=== PATIENT | male | born 1980 | race Caucasian/White ===

== ENCOUNTER 2020-01-17 23:48 | Emergency (ER) | payer BC, SELFPAY ==
[2020-01-18 00:01] VITALS: BP 144/94; PULSE 98; RESP 18; TEMP 36.6; O2SAT 100
== END 2020-01-18 00:10 | disposition left against medical advice (07) ==
LOC: ANHED 05-26 10:53
DX: F10.920 Alcohol use, unspecified with intoxication, uncomplicated (principal)
CPT/HCPCS: 99199

== ENCOUNTER 2020-01-25 19:10 | Emergency (ER) | payer BC, SELFPAY ==
--- NOTE | 2020-01-25 19:12 | ED.ALCOHOL ---
HPI - Alcohol General Chief Complaint: Alcohol Stated Complaint: ETOH History of Present Illness HPI narrative: Patient presents via EMS for alcohol intoxication. His mother had called for them to come get him. He has no complaints. He said he is not working currently because he had right knee surgery. He said he drinks a lot of vodka. He denies smoking cigarettes or smoking marijuana. He has not been sick recently. He has some abrasions on his arms and legs on he does not give a history of that. complaint: alcohol intoxication Last drink: just [employer] Chronic alcohol use: Yes Related Data Home Medications Medication Instructions Recorded Confirmed alprazolam 01/25/20 dextroamphetamine-amphetamine 01/25/20 naproxen 01/25/20 01/25/20 Allergies Allergy/AdvReac Type Severity Reaction Status Date / Time codeine Allergy Unknown Unknown Verified 01/25/20 19:17 Penicillins Allergy Unknown Unknown Verified 01/25/20 19:17 Review of Systems Review of Systems: Narrative: . He says no to everything that I asked but because of his intoxication I am not sure that is accurate. All systems reviewed & are unremarkable except as noted in HPI and below PMFSH Past Medical History Medical History Alcoholic Surgical History Surgical History (Updated 01/25/20 @ 19:14 by Stella Green MD) History of knee surgery Social History Social History (Updated 01/25/20 @ 19:14 by Stella Green MD) Smoking status: Never smoker Alcohol intake: current Substance use: never Gender identity (if verbalized by the patient): Male Exam Narrative: Exam Narrative: GENERAL: Well-appearing, well-nourished, and in no acute distress. Slow speech, polite, abrasions on the arms and legs. HEAD: Normocephalic, atraumatic. EYES: PERRLA and EOMI. ENT: Nares clear, no rhinorrhea or epistaxis. Mucous membranes moist. NECK: Supple. CHEST: Clear to auscultation. No respiratory distress. HEART: Regular rate and rhythm. No murmur heard. Normal peripheral pulses. ABDOMEN: Soft, nontender, nondistended, normal active bowel sounds. EXTREMITIES: Normal range of motion. No edema. SKIN: Warm, dry, no rash. NEURO: No focal deficits. Alert and oriented x3. PSYCH: Slow speech. Course Reevaluation(s) Reevaluation #1: Patient is yelling and cursing, saying that he wants to leave. I ordered Haldol and told him I would give him something to relax him. Date: 01/25/20 Time: 20:53 Reevaluation #2: Patient is yelling, ate some of his food but threw the water, pulled out his IV, does not understand why he is here. Security is present. Staff feels threatened. We will give another Haldol this time with the Ativan IM. Date: 01/25/20 Time: 21:52 Consultations Consultation #1: Patient called his mother and she is coming from [place] to pick him up he is now polite and cooperative. Date: 01/26/20 Time: 06:25 Vital Signs Vital signs: Vital Signs Temperature 98.4 F 01/25/20 19:13 Pulse Rate 88 01/25/20 19:13 Respiratory Rate 14 01/25/20 19:13 Blood Pressure 141/109 H 01/25/20 19:13 Pulse Oximetry 98 01/25/20 19:13 Temperature 98.4 F 01/25/20 19:13 Pulse Rate 81 01/26/20 06:14 Respiratory Rate 19 01/26/20 06:14 Blood Pressure 129/89 01/26/20 06:14 Pulse Oximetry 100 01/26/20 06:14 MDM - Alcohol Differential Diagnosis Differential diagnosis: Likely alcohol intoxication Medical Records Attestation: I reviewed the patient's medical records. Lab Data Attestation: I reviewed the patient's lab results. Result diagrams: 01/25/20 19:22 01/25/20 19:22 Labs: Lab Results 01/25/20 01/25/20 01/25/20 Range/Units 19:22 19:22 19:22 WBC 8.4 (4.5-10.0) K/mm3 RBC 4.88 (4.6-6.20) M/mm3 Hgb 15.1 (14.0-18.0) g/dL Hct 44.8 (42.0-52.0) % MCV 91.8 (80-100) fl MCH 30.9 (26-34) pg MCHC 33.7 (32-36) g/dl RD
[2020-01-25 19:13] VITALS: BP 141/109; PULSE 88; RESP 14; TEMP 36.9; O2SAT 98
[2020-01-25 19:29] LABS: Basophils Absolute Auto 0.1 K/mm3 (0.0-0.1); Basophils Percent Auto 0.7 % (0.2-1.2); Eosinophils Absolute Auto 0.2 K/mm3 (0-0.3); Eosinophils Percent Auto 1.8 % (0-4.4); Hematocrit 44.8 % (42.0-52.0); Hemoglobin 15.1 g/dL (14.0-18.0); Immature Granulocyte Absolute 0.01 K/mm3 (0.00-0.031); Immature Granulocyte Percent A 0.1 % (0-0.5); Lymphocytes Absolute Auto 2.16 K/mm3 (0.9-3.2); Lymphocytes Percent Auto 25.7 % (18.3-44.2); Mean Corpuscular HGB Conc 33.7 g/dl (32-36); Mean Corpuscular Hemoglobin 30.9 pg (26-34); Mean Corpuscular Volume 91.8 fl (80-100); Monocytes Absolute Auto 0.6 K/mm3 (0.1-0.6); Monocytes Percent Auto 7.1 % (2.6-8.5); Neutrophils Absolute Auto 5.4 K/mm3 (1.3-6.7); Neutrophils Percent Auto 64.6 % (45.5-73.1); Platelet Count Result 275 k/mm3 (150-375); Red Blood Count 4.88 M/mm3 (4.6-6.20); Red Cell Distribution Width 11.9 % (11.5-14.5); White Blood Count 8.4 K/mm3 (4.5-10.0)
[2020-01-25 19:40] LABS: Alanine Aminotransferase 49 U/L (4-50); Albumin Level 3.9 g/dL (3.5-5.1); Alkaline Phosphatase 100 U/L (38-126); Aspartate Amino Transferase 56 U/L (17-59); Bilirubin,Total 0.2 mg/dL (0.2-1.3); Blood Urea Nitrogen 13 mg/dL (9-20); Calcium 8.1 mg/dL (8.4-10.2); Carbon Dioxide 32 mmol/L (22-30); Chloride 104 mmol/L (98-107); Estimated CRCL calculation 97 ml/min; Estimated Glomerular Filt Rate > 60; Glucose 94 mg/dL (75-110); Potassium 3.9 mmol/L (3.4-5.0); Sodium 144 mmol/L (137-145)
[2020-01-25 19:56] LABS: Ethanol 308 mg/dL (<10)
[2020-01-25] MEDS: HALOPERIDOL LACTATE 5 MG/ML VIAL IM ×2 (20:32→22:08)
--- NOTE | 2020-01-25 20:52 | PC.NURSE ---
Attempted to call pt mother at this time with no success.
--- NOTE | 2020-01-25 20:58 | PC.NURSE ---
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 Pt ripping off tele leads and attempting to self remove IV. Staff and security at bedside attempting to calm patient. EDP made aware of behavior.
[2020-01-25 21:38] VITALS: BP 132/74; PULSE 88; RESP 16; O2SAT 98
--- NOTE | 2020-01-25 22:08 | PC.NURSE ---
pt pulled put iv, threatening towards staff, saying he would, smack the glasses of this software writer gabbie to give haldol 5 mg and ativan 2mg im from dr celeste given in right thigh
[2020-01-26] VITALS: BP 125/88; PULSE 90; RESP 18; O2SAT 100
[2020-01-26 01:53] VITALS: BP 126/75; PULSE 70; RESP 18; O2SAT 98
[2020-01-26 04:56] VITALS: BP 130/97; PULSE 85; RESP 19; O2SAT 100
--- NOTE | 2020-01-26 04:57 | PC.NURSE ---
pt awake at this time. a&ox3 with no complaints. edp notified.
[2020-01-26 06:14] VITALS: BP 129/89; PULSE 81; RESP 19; O2SAT 100
--- NOTE | 2020-01-26 06:43 | PC.NURSE ---
pt called mother for a ride home.
[2020-01-26 06:59] VITALS: BP 135/79; PULSE 88; RESP 19; TEMP 36.8; O2SAT 100
== END 2020-01-26 07:18 | disposition home or self-care (01) ==
PROVIDERS: Emergency Provider Emergency Medicine
DX: F10.229 Alcohol dependence with intoxication, unspecified (principal); Y90.8 Blood alcohol level of 240 mg/100 ml or more; R45.6 Violent behavior
CPT/HCPCS: 36415; 80053; 80307; 85025; 96372; 96374; 99284; J1630; J2060; J3411; J3475; J7121

== ENCOUNTER 2020-01-28 16:33 | Emergency (ER) | payer BC, SELFPAY ==
[2020-01-28 16:46] VITALS: BP 147/111; PULSE 125; RESP 20; TEMP 37.1; O2SAT 97
[2020-01-28 17:31] VITALS: BP 148/107; PULSE 111; RESP 15; TEMP 36.7; O2SAT 96
[2020-01-28 18:11] LABS: Add Urine Microscopic? NO; Appearance Urine Clear (Clear); Bilirubin Urine Negative (Negative); Blood Urine Negative (Negative); Color Urine Straw (Yellow); Glucose Urine UA Negative (Negative); Ketones Urine Negative (Negative); Leukocyte Esterase Ur Negative LEU/UL (Negative); Nitrate Urine Negative (Negative); Protein Urine Negative (Negative); Urobilinogen Urine Negative mg/dL (<2.0)
[2020-01-28 18:12] LABS: Basophils Absolute Auto 0.1 K/mm3 (0.0-0.1); Basophils Percent Auto 0.9 % (0.2-1.2); Eosinophils Absolute Auto 0.1 K/mm3 (0-0.3); Eosinophils Percent Auto 1.2 % (0-4.4); Hematocrit 45.1 % (42.0-52.0); Hemoglobin 15.9 g/dL (14.0-18.0); Immature Granulocyte Absolute 0.02 K/mm3 (0.00-0.031); Immature Granulocyte Percent A 0.2 % (0-0.5); Lymphocytes Percent Auto 26.5 % (18.3-44.2); Mean Corpuscular HGB Conc 35.3 g/dl (32-36); Mean Corpuscular Hemoglobin 31.5 pg (26-34); Mean Corpuscular Volume 89.5 fl (80-100); Mean Platelet Volume 10.7 fl (7.4-10.4); Monocytes Absolute Auto 0.6 K/mm3 (0.1-0.6); Monocytes Percent Auto 6.3 % (2.6-8.5); Neutrophils Absolute Auto 5.6 K/mm3 (1.3-6.7); Neutrophils Percent Auto 64.9 % (45.5-73.1); Platelet Count Result 311 k/mm3 (150-375); Red Blood Count 5.04 M/mm3 (4.6-6.20); Red Cell Distribution Width 11.9 % (11.5-14.5); White Blood Count 8.7 K/mm3 (4.5-10.0)
[2020-01-28 18:26] LABS: Amphetamine Screen Urine Negative (Negative); Barbiturate Screen Urine Negative (Negative); Benzodiazepines Screen Urine Positive (Negative); Cannabinoid Screen Urine Negative (Negative); Cocaine Screen Urine Negative (Negative); Methadone Screen Urine Negative (Negative); Opiate Screen Urine Negative (Negative); Phencyclidine Screen Urine Negative (Negative)
[2020-01-28 18:27] LABS: Ethanol 273 mg/dL (<10)
[2020-01-28 18:28] LABS: Alanine Aminotransferase 64 U/L (4-50); Albumin Level 4.2 g/dL (3.5-5.1); Alkaline Phosphatase 110 U/L (38-126); Aspartate Amino Transferase 94 U/L (17-59); Bilirubin,Total 0.3 mg/dL (0.2-1.3); Blood Urea Nitrogen 16 mg/dL (9-20); Calcium 8.7 mg/dL (8.4-10.2); Carbon Dioxide 28 mmol/L (22-30); Chloride 102 mmol/L (98-107); Estimated CRCL calculation 86 ml/min; Estimated Glomerular Filt Rate > 60; Glucose 124 mg/dL (75-110); Potassium 4.1 mmol/L (3.4-5.0); Sodium 141 mmol/L (137-145)
--- NOTE | 2020-01-28 18:38 | ED.ALCOHOL ---
HPI - Alcohol General Chief Complaint: Alcohol Stated Complaint: etoh detox Time Seen by Provider: 01/28/20 17:56 Source: patient Mode of arrival: ambulatory Limitations: intoxication History of Present Illness HPI narrative: This is a 39-year-old male that presents the emergency department for alcohol detox. Reports he usually drinks 1/5 of vodka a day. Reports his last drink was this afternoon. He would like to stop drinking. Currently does not have any complaints. Denies chest pain, shortness of breath, abdominal pain, or vomiting. Related Data Home Medications Medication Instructions Recorded Confirmed alprazolam 01/25/20 dextroamphetamine-amphetamine 01/25/20 naproxen 01/25/20 01/25/20 Allergies Allergy/AdvReac Type Severity Reaction Status Date / Time codeine Allergy Unknown Unknown Verified 01/28/20 17:36 Penicillins Allergy Unknown Unknown Verified 01/28/20 17:36 Review of Systems Review of Systems: Narrative: CONSTITUTIONAL: Denies fever CARDIOVASCULAR: Denies chest pain RESPIRATORY: Denies dyspnea. GASTROINTESTINAL: Denies abdominal pain, nausea, vomiting All systems reviewed & are unremarkable except as noted in HPI and below PMFSH Surgical History Surgical History (Updated 01/25/20 @ 19:14 by Stella Green MD) History of knee surgery Social History Social History (Updated 01/25/20 @ 19:14 by Stella Green MD) Smoking status: Never smoker Alcohol intake: current Substance use: never Gender identity (if verbalized by the patient): Male Exam Narrative: Exam Narrative: GENERAL: Intoxicated, well-nourished, and in no acute distress. HEAD: Normocephalic, atraumatic. EYES: PERRLA and EOMI. ENT: Nares clear, no rhinorrhea or epistaxis. Mucous membranes moist. Oropharynx without tonsillar hypertrophy exudate or other lesions. Bilateral TMs pearly garduno non-bulging NECK: Supple. No adenopathy or masses. CHEST: Clear to auscultation. No respiratory distress. No wheezes rales or rhonchi HEART: Regular rate and rhythm. No murmur heard. Normal peripheral pulses. ABDOMEN: Soft, nontender, nondistended, normal active bowel sounds. EXTREMITIES: Normal range of motion. No edema. SKIN: Warm, dry, no rash. NEURO: No focal deficits. Alert and oriented x3. PSYCH: Normal mood and affect Course Vital Signs Vital signs: Vital Signs Temperature 98.7 F 01/28/20 16:46 Pulse Rate 125 H 01/28/20 16:46 Respiratory Rate 20 01/28/20 16:46 Blood Pressure 147/111 H 01/28/20 16:46 Pulse Oximetry 97 01/28/20 16:46 Temperature 98.1 F 01/28/20 17:31 Pulse Rate 88 01/28/20 21:40 Respiratory Rate 15 01/28/20 21:40 Blood Pressure 167/113 H 01/28/20 21:40 Pulse Oximetry 100 01/28/20 21:40 MDM - Alcohol MDM Narrative Medical decision making narrative: Patient presents to the emergency department as he would like to stop drinking. Patient currently does not have any complaints. Blood pressure has been intermittently elevated. Tachycardic upon arrival which improved after IV fluids. Otherwise vitals are normal. CBC without acute findings. Metabolic panel with mild transaminitis. Alcohol level is 273. UA without acute abnormalities. Urine drug screen positive for benzodiazepines. Spoke with patient and his mother in length. Will be discharged with a prescription for Librium. Patient reports he plans to seek treatment. Patient given resources to do so Lab Data Attestation: I reviewed the patient's lab results. Result diagrams: 01/28/20 17:45 01/28/20 17:45 Labs: Lab Results 01/28/20 01/28/20 01/28/20 Range/Units 17:45 17:45 17:45 WBC 8.7 (4.5-10.0) K/mm3 RBC 5.04 (4.6-6.20) M/mm3 Hgb 15.9 (14.0-18.0) g/dL Hct 45.1 (42.0-52.0) % MCV 89.5 (80-100) fl MCH 31.5 (26-34) pg MCHC 35.3 (32-36) g/dl RDW 11.9 (11.5-14.5) % Plt Count 311 (150-375) k/mm3 MPV 10.7 H (7.4-10.4) fl Immature Gran % (
[2020-01-28 19:49] VITALS: BP 146/70; PULSE 95; RESP 12; O2SAT 96
[2020-01-28 21:40] VITALS: BP 167/113; PULSE 88; RESP 15; O2SAT 100
[2020-01-28] MEDS: chlordiazePOXIDE 25 MG CAPSULE PO (21:40)
[2020-01-28 22:06] VITALS: BP 161/115; PULSE 89; RESP 10; TEMP 37.1; O2SAT 97
== END 2020-01-28 22:09 | disposition home or self-care (01) ==
PROVIDERS: Emergency Medicine; Emergency Provider Emergency Medicine
DX: F10.20 Alcohol dependence, uncomplicated (principal); Y90.0 Blood alcohol level of less than 20 mg/100 ml
CPT/HCPCS: 36415; 80053; 80307; 81003; 85025; 96365; 96366; 99284; A9270; J3411; J3475; J7030

== ENCOUNTER 2020-03-25 21:03 | Emergency (ER) | payer BC, SELFPAY ==
[2020-03-25 21:06] VITALS: BP 125/72; PULSE 101; RESP 16; TEMP 36.8; O2SAT 100
--- NOTE | 2020-03-25 22:27 | ED.WOUNDLAC ---
HPI - Wound/Laceration General Chief Complaint: Wound/Laceration Stated Complaint: l hand injury Time Seen by Provider: 03/25/20 21:44 Source: RN notes reviewed History of Present Illness HPI narrative: Patient presents emergency department from home for left second digit finger laceration. Patient states prior to arrival he had been putting up some Halloween lights when he tripped and try to catch himself and had struck a staple with his left pointer finger. A chunk of skin been removed at that time. He notes mild venous bleeding he denies any other injury states his last tetanus shot was 5 years ago denies any numbness or tingling Related Data Home Medications Medication Instructions Recorded Confirmed alprazolam 01/25/20 dextroamphetamine-amphetamine 01/25/20 naproxen 01/25/20 01/25/20 Allergies Allergy/AdvReac Type Severity Reaction Status Date / Time codeine Allergy Unknown Unknown Verified 03/25/20 21:41 Penicillins Allergy Unknown Anaphylaxis Verified 03/25/20 21:41 Review of Systems Review of Systems: Narrative: Gen.: Denies fevers or chills Musculoskeletal: Denies joint pain Neuro: Denies numbness, tingling, weakness Skin: See HPI Endo: Denies DM PMFSH Past Medical History Medical History Alcoholic Surgical History Surgical History (Updated 01/25/20 @ 19:14 by Stella Green MD) History of knee surgery Social History Social History Smoking status: Never smoker Alcohol intake: current Substance use: never Gender identity (if verbalized by the patient): Male Exam Narrative: Exam Narrative: APPEARANCE: No acute distress, nontoxic, resting in bed Eyes: EOMI HEENT: Normocephalic, atraumatic, RESPIRATORY: No respiratory distress MUSCULOSKELETAl: Full flexion-extension of the left second PIP DIP and MCP joints, capillary refill less than 3 seconds neurovascular intact NEURO: Awake and alert. Following commands, speech normal, no focal deficits SKIN:: Warm, dry. Left distal lateral second digit has a 1 cm laceration distal to the DIP joint but proximal to the nail it is linear and deep with a chunk of skin that has been taken out mild venous bleeding no foreign body no tendon involvement Course Course Emergency Course: Discussed with patient results of workup and diagnosis. Discussed need for follow-up with primary care, proper use of medication, and reasons to return to the emergency department. Patient understands and agrees to current treatment plan Vital Signs Vital signs: Vital Signs Temperature 98.3 F 03/25/20 21:06 Pulse Rate 101 H 03/25/20 21:06 Respiratory Rate 16 03/25/20 21:06 Blood Pressure 125/72 03/25/20 21:06 Pulse Oximetry 100 03/25/20 21:06 Temperature 98.3 F 03/25/20 21:06 Pulse Rate 101 H 03/25/20 21:06 Respiratory Rate 16 03/25/20 21:06 Blood Pressure 125/72 03/25/20 21:06 Pulse Oximetry 100 03/25/20 21:06 Procedures Laceration Laceration 1: ====== Skin Level ====== ====== Subcutaneous Layer ====== ====== Muscle Layer ====== ====== Tendon Layer ====== Dressing: Verbal consent was obtained prior to the procedure. The wound was cleaned with Betadine and irrigated with copious amounts of normal saline. Lidocaine 1% was used for digital block wound was explored is no foreign body seen. The wound closure was difficult as there is a large chunk of skin that have been removed and approximated as best as possible. the wound was then closed with 3 4-0 nylon in simple interrupted fashion. A sterile dressing was applied following the procedure. Patient tolerated the procedure well Discharge Plan Discharge Clinical Impression: Laceration of left index finger Patient Disposition: Home, Self-Care Condition: Stable Instructions: Antibiotic Form, Finger Laceration (ED) Additional I
[2020-03-25 23:03] VITALS: BP 139/90; PULSE 56; RESP 16; TEMP 36.8; O2SAT 95
== END 2020-03-25 23:04 | disposition home or self-care (01) ==
PROVIDERS: Emergency Provider Emergency Medicine
DX: S61.211A Laceration without foreign body of left index finger without damage to nail, initial encounter (principal); W01.118A Fall on same level from slipping, tripping and stumbling with subsequent striking against other sharp object, initial encounter
CPT/HCPCS: 12001; 99282

== ENCOUNTER 2020-03-28 20:55 | Emergency (ER) | payer BC, SELFPAY ==
[2020-03-28 20:58] VITALS: BP 165/102; PULSE 110; RESP 20; TEMP 36.7; O2SAT 99
[2020-03-28 21:20] VITALS: BP 153/108; PULSE 106; PULSE 109; RESP 15; O2SAT 98
--- NOTE | 2020-03-28 21:56 | ED.GENADULT ---
HPI - General Adult General Chief complaint: Unspecified Stated complaint: needs stitches removed Time Seen by Provider: 03/28/20 21:22 History of Present Illness HPI narrative: He reports that he drinks 1-2 pints of liquor every day, but he plans to stop and he would like help. He has tired to quit in the past, but he gets too sick. He reports his last drink was a few hours ago and he is already getting shakey. He does not have a PCP. Additionally he was seen here 4 days ago and had stitches put in left index finger and he thought it was time to get them taken out. He tried to follow-up with the asigned physician and was told that they were not seeing new patient's. Related Data Home Medications Medication Instructions Recorded Confirmed alprazolam 01/25/20 dextroamphetamine-amphetamine 01/25/20 naproxen 01/25/20 01/25/20 Allergies Allergy/AdvReac Type Severity Reaction Status Date / Time Penicillins Allergy Severe Anaphylaxis Verified 03/28/20 21:14 codeine Allergy Intermediate Swelling Verified 03/28/20 21:14 Review of Systems Review of Systems: All systems reviewed & are unremarkable except as noted in HPI and below Constitutional: Constitutional: Denies fever(s) Cardiovascular: Cardiovascular: Denies chest pain Respiratory: Respiratory: Denies dyspnea Gastrointestinal: Gastrointestinal: Denies abdominal pain, Denies nausea and Denies vomiting Musculoskeletal: Musculoskeletal: Denies back pain Neurologic: Denies dizziness, Denies syncope and Denies headache(s) PMFSH Past Medical History Medical History Alcoholic Surgical History Surgical History History of knee surgery Social History Social History Smoking status: Never smoker Alcohol intake: current Substance use: never Gender identity (if verbalized by the patient): Male Exam Const: General: healthy appearing, no acute distress and alert Nutritional Appearance: well nourished Orientation/consciousness: patient oriented x3 HENMT: Head: normal to inspection Resp: Effort & Inspection: normal respiratory effort Auscultation: clear to auscultation bilaterally Cardio: Rate: tachycardic Rhythm: regular rhythm GI: GI Palp: Yes Soft to palpation and No Tenderness to palpation present (GI) Skin: General skin exam: normal color Neuro: General: patient oriented x3, moves all extremities, no focal motor deficits and CN's II-XI intact bilaterally Speech: normal speech Other: Resting tremor Psych: Affect: Anxious affect present Course Vital Signs Vital signs: Vital Signs Temperature 36.7 C 03/28/20 20:58 Pulse Rate 110 H 03/28/20 20:58 Respiratory Rate 20 03/28/20 20:58 Blood Pressure 165/102 H 03/28/20 20:58 Pulse Oximetry 99 03/28/20 20:58 Temperature 36.7 C 03/28/20 20:58 Pulse Rate 97 03/28/20 23:55 Respiratory Rate 16 03/28/20 23:55 Blood Pressure 153/108 H 03/28/20 23:55 Pulse Oximetry 100 03/28/20 23:55 Medical Decision Making MDM Narrative Medical decision making narrative: He is having mild alcohol withdrawal at this time. He should be a good candidate for outpatient treatment if he is able to arrange follow-up in a timely manor. I will plan to start him on librium. Tremors and tachycardia resolved after librium. I contacted Dr. Thomas and he will see the patient in follow-up Medical Records Medical records reviewed: Yes I reviewed the patient's medical records. Vital Signs Vital Signs: Vital Signs Temperature 36.7 C 03/28/20 20:58 Pulse Rate 110 H 03/28/20 20:58 Respiratory Rate 20 03/28/20 20:58 Blood Pressure 165/102 H 03/28/20 20:58 Pulse Oximetry 99 03/28/20 20:58 Temperature 36.7 C 03/28/20 20:58 Pulse Rate 97 03/28/20 23:55 Respiratory Rate 16 03/28/20 23:55 Blood Pr
[2020-03-28 22:15] VITALS: BP 143/108; PULSE 102; RESP 16; O2SAT 98
[2020-03-28] MEDS: chlordiazePOXIDE 25 MG CAPSULE PO (22:18)
[2020-03-28 23:00] VITALS: BP 143/90; PULSE 98; RESP 18; O2SAT 98
[2020-03-28] MEDS: chlordiazePOXIDE 10 MG CAPSULE PO (23:20)
[2020-03-28 23:55] VITALS: BP 153/108; PULSE 97; RESP 16; O2SAT 100
== END 2020-03-28 23:55 | disposition home or self-care (01) ==
PROVIDERS: Emergency Provider Emergency Medicine
DX: F10.239 Alcohol dependence with withdrawal, unspecified (principal)
CPT/HCPCS: 99283; A9270

== ENCOUNTER 2020-06-19 03:36 | Emergency (ER) | payer BC, MEDICAID, SELFPAY ==
[2020-06-19] VITALS (11 sets, daily range): BP systolic 119–161; BP diastolic 76–109; PULSE 71–96; RESP 7–18; TEMP 36.4–36.8; O2SAT 94–98
--- NOTE | 2020-06-19 03:50 | ED.OVERDOSE ---
HPI - Overdose General Chief Complaint: Overdose Stated Complaint: od History of Present Illness HPI Narrative: 40 yo male w/ h/o alcohol and drug abuse brought in to the ED by EMS for suspected overdose. He was found unresponsive with labored respirations. He was given a total of 8 mg of narcan combined intranasal and IV. He required bag assisted ventlation. He became more awake,but still confused. History limited by mental status. Related Data Home Medications Medication Instructions Recorded Confirmed alprazolam 01/25/20 dextroamphetamine-amphetamine 01/25/20 naproxen 01/25/20 01/25/20 Allergies Allergy/AdvReac Type Severity Reaction Status Date / Time Penicillins Allergy Severe Anaphylaxis Verified 03/28/20 21:14 codeine Allergy Intermediate Swelling Verified 03/28/20 21:14 Review of Systems Review of Systems: ROS unobtainable: Yes unobtainable due to mental status PMFSH Past Medical History Medical History Alcoholic Polysubstance abuse Surgical History Surgical History History of knee surgery Social History Social History Smoking status: Never smoker Alcohol intake: current Substance use: never Gender identity (if verbalized by the patient): Male Exam Const: Nutritional Appearance: well nourished Other: Somnolent. Slurred speech HENMT: Head: normal to inspection Eyes: Pupils: Equal, round and reactive pupils present Resp: Effort & Inspection: normal respiratory effort Auscultation: clear to auscultation bilaterally Cardio: Rate: regular rate Rhythm: regular rhythm GI: GI Palp: Yes Soft to palpation and No Tenderness to palpation present (GI) Skin: General skin exam: normal color Neuro: General: moves all extremities and no focal motor deficits Other: Oriented x2, slurred speech Extrem: General: normal to inspection Psych: Thought content: No Suicidality present Course Vital Signs Vital signs: Vital Signs Temperature 36.4 C L 06/19/20 03:36 Pulse Rate 96 06/19/20 03:36 Respiratory Rate 18 06/19/20 03:36 Blood Pressure 161/109 H 06/19/20 03:36 Pulse Oximetry 97 06/19/20 03:36 Temperature 36.8 C 06/19/20 06:00 Pulse Rate 84 06/19/20 06:00 Respiratory Rate 16 06/19/20 06:00 Blood Pressure 138/89 06/19/20 06:00 Pulse Oximetry 97 06/19/20 06:00 MDM - Overdose MDM Narrative Medical decision making narrative: Admits to using meth and xanax. No intentional self harm. Still drowsy, but protecting airway and breathing on his own. Medical Records Attestation: I reviewed the patient's medical records. Lab Data Attestation: I reviewed the patient's lab results. Result diagrams: 06/19/20 04:03 06/19/20 04:03 Labs: Lab Results 06/19/20 06/19/20 06/19/20 Range/Units 04:03 04:03 04:03 WBC 5.7 (4.5-10.0) K/mm3 RBC 3.78 L (4.6-6.20) M/mm3 Hgb 11.7 L D (14.0-18.0) g/dL Hct 34.7 L (42.0-52.0) % MCV 91.8 (80-100) fl MCH 31.0 (26-34) pg MCHC 33.7 (32-36) g/dl RDW 11.9 (11.5-14.5) % Plt Count 172 (150-375) k/mm3 MPV 9.3 (7.4-10.4) fl Immature Gran % (Auto) 0.4 (0-0.5) % Neut % (Auto) 53.5 (45.5-73.1) % Lymph % (Auto) 36.3 (18.3-44.2) % [place] % (Auto) 6.3 (2.6-8.5) % Eos % (Auto) 2.6 (0-4.4) % Baso % (Auto) 0.9 (0.2-1.2) % Lymph # (Auto) 2.07 (0.9-3.2) K/mm3 [place] # (Auto) 0.4 (0.1-0.6) K/mm3 Eos # (Auto) 0.2 (0-0.3) K/mm3 Baso # (Auto) 0.1 (0.0-0.1) K/mm3 Abs Immat Gran (auto) 0.02 (0.00-0.031) K/mm3 Absolute Neuts (auto) 3.1 (1.3-6.7) K/mm3 Absolute Nucleated RBC 0.0 (0.0-0.012) K/mm3 Nucleated RBC % 0.0 (0.0-0.2) % Sodium 135 L (137-145) mmol/L Potassium 3.8 (3.4-5.0) mmol/L Chloride 98 (98-107) mmol/
--- NOTE | 2020-06-19 03:56 | ECG_ITS ---
Measurements Intervals [place] Rate: 97 P: 28 [place]: 159 QRS: 43 QRSD: 105 T: 51 QT: 360 QTc: 459 Interpretive Statements SINUS RHYTHM INCOMPLETE RIGHT BUNDLE BRANCH BLOCK BASELINE ARTIFACT- I, II, III BORDERLINE ECG Electronically Signed On 06-19-2020 6:54:19 [place] by Demarcus Rea D.O.
[2020-06-19 04:26] LABS: Basophils Absolute Auto 0.1 K/mm3 (0.0-0.1); Basophils Percent Auto 0.9 % (0.2-1.2); Eosinophils Absolute Auto 0.2 K/mm3 (0-0.3); Eosinophils Percent Auto 2.6 % (0-4.4); Hematocrit 34.7 % (42.0-52.0); Hemoglobin 11.7 g/dL (14.0-18.0); Immature Granulocyte Absolute 0.02 K/mm3 (0.00-0.031); Immature Granulocyte Percent A 0.4 % (0-0.5); Lymphocytes Absolute Auto 2.07 K/mm3 (0.9-3.2); Lymphocytes Percent Auto 36.3 % (18.3-44.2); Mean Corpuscular HGB Conc 33.7 g/dl (32-36); Mean Corpuscular Volume 91.8 fl (80-100); Mean Platelet Volume 9.3 fl (7.4-10.4); Monocytes Absolute Auto 0.4 K/mm3 (0.1-0.6); Monocytes Percent Auto 6.3 % (2.6-8.5); Neutrophils Absolute Auto 3.1 K/mm3 (1.3-6.7); Neutrophils Percent Auto 53.5 % (45.5-73.1); Platelet Count Result 172 k/mm3 (150-375); Red Blood Count 3.78 M/mm3 (4.6-6.20); Red Cell Distribution Width 11.9 % (11.5-14.5); White Blood Count 5.7 K/mm3 (4.5-10.0)
[2020-06-19 04:40] LABS: Acetaminophen < 10 ug/mL (10-30); Ethanol < 10 mg/dL (<10); Salicylate < 1.0 mg/dL (2-20)
[2020-06-19 05:04] LABS: Alanine Aminotransferase 26 U/L (4-50); Alkaline Phosphatase 67 U/L (38-126); Anion Gap 9 mmol/L (8-16); Aspartate Amino Transferase 37 U/L (17-59); Bilirubin,Total 0.8 mg/dL (0.2-1.3); Blood Urea Nitrogen 20 mg/dL (9-20); Calcium 8.5 mg/dL (8.4-10.2); Carbon Dioxide 28 mmol/L (22-30); Chloride 98 mmol/L (98-107); Estimated CRCL calculation 75 ml/min; Estimated Glomerular Filt Rate > 60; Glucose 259 mg/dL (75-110); Potassium 3.8 mmol/L (3.4-5.0); Sodium 135 mmol/L (137-145)
== END 2020-06-19 06:02 | disposition home or self-care (01) ==
PROVIDERS: Emergency Provider Emergency Medicine
DX: T50.901A Poisoning by unspecified drugs, medicaments and biological substances, accidental (unintentional), initial encounter (principal)
CPT/HCPCS: 36415; 80053; 80307; 84443; 85025; 93005; 99283

== ENCOUNTER 2020-08-07 20:25 | Emergency (ER) | payer BC, MEDICAID, SELFPAY ==
[2020-08-07 20:52] VITALS: BP 141/89; PULSE 91; RESP 18; TEMP 36.7; O2SAT 99
[2020-08-07 23:00] VITALS: BP 133/88; PULSE 89; RESP 17; O2SAT 97
--- NOTE | 2020-08-07 23:00 | PC.NURSE ---
Assumed care of pt. Report from Nicky RN
[2020-08-08 00:16] VITALS: BP 133/87; PULSE 99; RESP 20; O2SAT 96
--- NOTE | 2020-08-08 01:06 | ED.GENADULT ---
HPI - General Adult General Chief complaint: Wound/Laceration Stated complaint: abcess right side Time Seen by Provider: 08/08/20 00:00 History of Present Illness HPI narrative: Patient is a 40-year-old male who presents ER with abscess to the right axilla. Reports its been developing over the last week. Drainage noted from 2 areas. No fevers or chills or sweats. Mild redness over the lower area of the armpit. Has not had issues like this previously. Related Data Home Medications Medication Instructions Recorded Confirmed alprazolam 01/25/20 dextroamphetamine-amphetamine 01/25/20 naproxen 01/25/20 01/25/20 Allergies Allergy/AdvReac Type Severity Reaction Status Date / Time Penicillins Allergy Severe Anaphylaxis Verified 08/07/20 20:26 codeine Allergy Intermediate Swelling Verified 08/07/20 20:26 Review of Systems Constitutional: Constitutional: Denies chills, Denies fever(s) and Denies weakness Gastrointestinal: Gastrointestinal: Denies nausea and Denies vomiting Integumentary/Breasts: Skin/Breast: Reports erythema Comments: right axillary abscess with drainage/tenderness PMFSH Past Medical History Medical History (Updated 08/08/20 @ 01:10 by Iván Holley MD) Alcoholic Polysubstance abuse Surgical History Surgical History (Updated 08/08/20 @ 01:07 by Ivná Holley MD) H/O fasciotomy Left forearm History of knee surgery Social History Social History (Updated 08/08/20 @ 01:07 by Iván Holley MD) Social History: History of IV drug abuse but now clean. Smoking status: Never smoker Alcohol intake: current Substance use: never Gender identity (if verbalized by the patient): Male Exam Narrative: Exam Narrative: GENERAL: Well-appearing, well-nourished, and in no acute distress. HEAD: Normocephalic, atraumatic. CHEST: Clear to auscultation. No respiratory distress. HEART: Regular rate and rhythm. Normal peripheral pulses. EXTREMITIES: Normal range of motion. No edema. SKIN: Warm, dry, no rash. Large abscess right axilla inferior aspect. 2 additional areas of drainage superior to this. Larger abscess with erythema moving towards the back. NEURO: Alert and oriented x3. PSYCH: Normal mood and affect. Course Course Emergency Course: Wound drained and packed. Patient can take [place] despite his history of IV drug abuse and is girlfriend will controlled medication. Bactrim for antibiotic coverage. Return precautions discussed. Vital Signs Vital signs: Vital Signs Temperature 98.0 F 08/07/20 20:52 Pulse Rate 91 08/07/20 20:52 Respiratory Rate 18 08/07/20 20:52 Blood Pressure 141/89 H 08/07/20 20:52 Pulse Oximetry 99 08/07/20 20:52 Temperature 98.0 F 08/07/20 20:52 Pulse Rate 99 08/08/20 00:16 Respiratory Rate 20 08/08/20 00:16 Blood Pressure 133/87 08/08/20 00:16 Pulse Oximetry 96 08/08/20 00:16 Procedures Abscess I/D upper extremity: Date of Incision: 08/08/20 Time of Incision: 12:45 Side (if applicable): right Local Anesthetic: lidocaine 1% and with epi Amount of anesthesia used (mL): 8 Technique: incised with #11 blade Irrigation: No Packing used?: iodoform I&D Results: Pus Complications: pain Medical Decision Making Vital Signs Vital Signs: Vital Signs Temperature 98.0 F 08/07/20 20:52 Pulse Rate 91 08/07/20 20:52 Respiratory Rate 18 08/07/20 20:52 Blood Pressure 141/89 H 08/07/20 20:52 Pulse Oximetry 99 08/07/20 20:52 Temperature 98.0 F 08/07/20 20:52 Pulse Rate 99 08/08/20 00:16 Respiratory Rate 20 08/08/20 00:16 Blood Pressure 133/87 08/08/20 00:16 Pulse Oximetry 96 08/08/20 00:16 Discharge Plan Discharge Clinical Impression: Abscess Patient Disposition: Home, Self-Care Condition: Stable Instructions: Antibiotic Form, Abscess (ED) Additional Instructions: Take the full course of you
[2020-08-08] MEDS: HYDROcodone/acetaminophen (*CRX) 5-325 MG TABLET 1 TAB PO (01:23)
== END 2020-08-08 01:20 | disposition home or self-care (01) ==
PROVIDERS: Emergency Provider Emergency Medicine
DX: L02.411 Cutaneous abscess of right axilla (principal)
CPT/HCPCS: 10061; 99283; A9270

== ENCOUNTER 2020-09-22 05:56 | Emergency (ER) | payer OTHER, SELFPAY ==
[2020-09-22] VITALS (49 sets, daily range): BP systolic 128–155; BP diastolic 46–111; PULSE 69–107; RESP 10–27; TEMP 36.8; O2SAT 97–100
--- NOTE | ~2020-09-22 | XR_ITS ---
EXAMINATION: XR chest 1V portable INDICATION: Transient alteration of awareness TECHNIQUE: Portable AP chest at 0615 hours COMPARISON: 01/24/2016 FINDINGS: The lungs are free of acute opacities. There is no pleural effusion or pneumothorax. The ca rdiomediastinal silhouette is normal. A tubular foreign body projects over the right upper chest. IMPRESSION: 1. No acute cardiopulmonary abnormality. Reviewed, dictated and finalized at location A. CIATE DOCTOR
--- NOTE | ~2020-09-22 | CT_ITS ---
EXAMINATION: CT brain wo con INDICATION: Altered mental status COMPARISON: 01/22/2016 TECHNIQUE: Standard unenhanced head CT. The dose-length product (DLP) was 681.00 mGy-cm. The mA was a djusted according to patient size. Iterative reconstruction technique was employed. FINDINGS: There is no intracranial hemorrhage, acute infarction, or abnormal mass lesion. The ventric les are normal. There is no abnormal mass effect or midline shift. The garduno-white matter differentiat ion is normal. The basal cisterns are patent. The orbits are normal. There is mild mucosal thickening of the paranasal sinuses. IMPRESSION: 1. No acute intracranial abnormality. Reviewed, dictated and finalized at location A. HT COMMUNICATIONS OFFICER
--- NOTE | 2020-09-22 06:02 | ECG_ITS ---
Measurements Intervals [place] Rate: 102 P: 14 [place]: 157 QRS: 20 QRSD: 104 T: 51 QT: 347 QTc: 454 Interpretive Statements SINUS TACHYCARDIA INCOMPLETE RIGHT BUNDLE BRANCH BLOCK BASELINE ARTIFACT- II, III, AVF BORDERLINE ECG Electronically Signed On 09-22-2020 7:15:13 [place] by Demarcus Rea D.O.
--- NOTE | 2020-09-22 06:04 | ED.OVERDOSE ---
HPI - Overdose General Chief Complaint: Overdose <Ben Velásquez MD - Last Filed: 09/22/20 06:08> Stated Complaint: OD <Ben Velásquez MD - Last Filed: 09/22/20 06:08> Time Seen by Provider: 09/22/20 06:02 <Ben Velásquez MD - Last Filed: 09/22/20 06:08> History of Present Illness HPI Narrative: Found unresponsive by his mother with fentanyl and a pipe near by. EMS found him with minimal respiratory effort. He got 10 mg of narcan. He required assisted ventilation for fifteen minutes. He then started vomiting. On arrival here he is awake, but still nonverbal. History limited by mental status. <Ben Velásquez MD - Last Filed: 09/22/20 06:08> Related Data Home Medications: Home Medications Medication Instructions Recorded Confirmed alprazolam 01/25/20 dextroamphetamine-amphetamine 01/25/20 naproxen 01/25/20 01/25/20 <Ben Velásquez MD - Last Filed: 09/22/20 06:08> Allergies/Adverse Reactions: Allergies Allergy/AdvReac Type Severity Reaction Status Date / Time Penicillins Allergy Severe Anaphylaxis Verified 08/07/20 20:26 codeine Allergy Intermediate Swelling Verified 08/07/20 20:26 <Ben Velásquez MD - Last Filed: 09/22/20 06:08> Review of Systems Review of Systems: ROS unobtainable: Yes unobtainable due to mental status <Ben Velásquez MD - Last Filed: 09/22/20 06:08> [facility] Past Medical History Medical History: Medical History (Updated 09/22/20 @ 12:05 by Maranda Marin MD) Alcoholic Polysubstance abuse <Ben Velásquez MD - Last Filed: 09/22/20 06:08> Surgical History Surgical History: Surgical History (Updated 08/08/20 @ 01:07 by Iván Holley MD) H/O fasciotomy Left forearm History of knee surgery <Ben Velásquez MD - Last Filed: 09/22/20 06:08> Social History Social History: Social History (Updated 08/08/20 @ 01:07 by Iávn Holley MD) Social History: History of IV drug abuse but now clean. Smoking status: Never smoker Alcohol intake: current Substance use: never Gender identity (if verbalized by the patient): Male <Ben Velásquez MD - Last Filed: 09/22/20 06:08> Exam Const: General: confusion <Ben eVlásquez MD - Last Filed: 09/22/20 06:08> Nutritional Appearance: well nourished <Ben Velásquez MD - Last Filed: 09/22/20 06:08> HENMT: Head: normal to inspection <Ben Velásquez MD - Last Filed: 09/22/20 06:08> Other: top front teeth missing <Ben Velásquez MD - Last Filed: 09/22/20 06:08> Eyes: Pupils: Equal, round and reactive pupils present <Ben Velásquez MD - Last Filed: 09/22/20 06:08> Neck: Neck: normal visual inspection <Ben Velásquez MD - Last Filed: 09/22/20 06:08> Resp: Effort & Inspection: tachypneic <Ben Velásquez MD - Last Filed: 09/22/20 06:08> Auscultation: clear to auscultation bilaterally <Ben Velásquez MD - Last Filed: 09/22/20 06:08> Cardio: Rate: tachycardic <Ben Velásquez MD - Last Filed: 09/22/20 06:08> Rhythm: regular rhythm <Ben Velásquez MD - Last Filed: 09/22/20 06:08> GI: GI Palp: Yes Soft to palpation and No Tenderness to palpation present (GI) <Ben Velásquez MD - Last Filed: 09/22/20 06:08> Skin: General skin exam: normal color <Ben Velásquez MD - Last Filed: 09/22/20 06:08> Neuro: General: moves all extremities <Ben Velásquez MD - Last Filed: 09/22/20 06:08> Other: Minimal speech. Not answering questions <Ben Velásquez MD - Last Filed: 09/22/20 06:08> Extrem: General: normal to inspection <Ben Velásquez MD - Last Filed: 09/22/20 06:08> Course Reevaluation(s) Reevaluation #1: Rechecked. Patient is a awake and alert. He feels fine with no complaint. Will plan discharge. <Maranda Marin MD - Last Filed: 09/22/20 12:08> Date: 09/22/20 <Maranda Marin MD - Last Filed: 09/22/20 12:08> Time: 1
[2020-09-22 06:27] LABS: Basophils Percent Auto 0.6 % (0.2-1.2); Eosinophils Absolute Auto 0.2 K/mm3 (0-0.3); Eosinophils Percent Auto 4.2 % (0-4.4); Hematocrit 41.5 % (42.0-52.0); Hemoglobin 13.9 g/dL (14.0-18.0); Immature Granulocyte Absolute 0.01 K/mm3 (0.00-0.031); Immature Granulocyte Percent A 0.2 % (0-0.5); Lymphocytes Percent Auto 25.7 % (18.3-44.2); Mean Corpuscular HGB Conc 33.5 g/dl (32-36); Mean Corpuscular Volume 86.6 fl (80-100); Mean Platelet Volume 9.3 fl (7.4-10.4); Monocytes Absolute Auto 0.3 K/mm3 (0.1-0.6); Monocytes Percent Auto 6.5 % (2.6-8.5); Neutrophils Absolute Auto 3.2 K/mm3 (1.3-6.7); Neutrophils Percent Auto 62.8 % (45.5-73.1); Platelet Count Result 221 k/mm3 (150-375); Red Blood Count 4.79 M/mm3 (4.6-6.20); Red Cell Distribution Width 12.3 % (11.5-14.5); White Blood Count 5.1 K/mm3 (4.5-10.0)
[2020-09-22 06:28] LABS: Alveolar/Arterial O2 Gradient 23.7 mmHg; Base Excess ABG -1.3 mEq/l (+/-2.0); Fractional Inspired Oxygen 21 %; HCO3 ABG 24.9 mEq/l (22.0-26.0); Oxygen Content ABG 18.8 %vol (16.0-22.0); Oxygen Saturation ABG 92.7 % (95.0-100.0); Oxyhemoglobin 92.2 % THb (90.0-100.0); PCO2 ABG 47.6 mmHg (35.0-45.0); PO2 FiO2 Ratio Arterial Blood 3.29 %; Total Hemoglobin 14.5 g/dL (12.0-18.0); pH ABG 7.337 (7.350-7.450)
[2020-09-22 06:29] LABS: Device ROOM AIR; Modified Allen's Test Unable to perform; Site Drawn RIGHT RADIAL
[2020-09-22 06:35] LABS: Ethanol < 10 mg/dL (<10)
[2020-09-22 06:37] LABS: Alanine Aminotransferase 43 U/L (4-50); Albumin Level 3.9 g/dL (3.5-5.1); Alkaline Phosphatase 62 U/L (38-126); Anion Gap 4 mmol/L (8-16); Aspartate Amino Transferase 56 U/L (17-59); Bilirubin,Total 0.4 mg/dL (0.2-1.3); Blood Urea Nitrogen 15 mg/dL (9-20); Calcium 8.5 mg/dL (8.4-10.2); Carbon Dioxide 32 mmol/L (22-30); Chloride 102 mmol/L (98-107); Estimated Glomerular Filt Rate > 60; Glucose 178 mg/dL (75-110); Potassium 4.2 mmol/L (3.4-5.0); Sodium 138 mmol/L (137-145)
[2020-09-22 06:57] LABS: Add Urine Microscopic? YES; Appearance Urine Clear (Clear); Bacteria Urine Trace /hpf; Bilirubin Urine Negative (Negative); Blood Urine Negative (Negative); Color Urine Straw (Yellow); Glucose Urine UA 2+ mg/dL (Negative); Ketones Urine Negative (Negative); Leukocyte Esterase Ur Negative LEU/UL (Negative); Mucus Urine Rare /lpf; Nitrate Urine Negative (Negative); Protein Urine 1+ mg/dL (Negative); RBC Urine 0-2 /hpf (0-2); Specific Grav Ur 1.014 (1.001-1.035); Squamous Epithelial Cell Urine Rare /hpf (Few); Urobilinogen Urine Negative mg/dL (<2.0); WBC Urine 0-3 /hpf
--- NOTE | 2020-09-22 06:57 | PC.NURSE ---
called poison control
[2020-09-22 07:17] LABS: Barbiturate Screen Urine Negative (Negative); Benzodiazepines Screen Urine Negative (Negative)
[2020-09-22 07:24] LABS: Cannabinoid Screen Urine Negative (Negative); Cocaine Screen Urine Negative (Negative); Methadone Screen Urine Negative (Negative); Opiate Screen Urine Positive (Negative); Phencyclidine Screen Urine Negative (Negative)
--- NOTE | 2020-09-22 07:36 | PC.NURSE ---
Sleeping. Arouses to name calling briefly. Mother at bedside.
[2020-09-22 07:37] LABS: Amphetamine Screen Urine Positive (Negative)
--- NOTE | 2020-09-22 09:45 | PC.NURSE ---
Pt arousable to name. Falls asleep while attempting to answer nurses questions.
== END 2020-09-22 12:19 | disposition home or self-care (01) ==
PROVIDERS: Emergency Provider Emergency Medicine
DX: F11.10 Opioid abuse, uncomplicated (principal); F15.10 Other stimulant abuse, uncomplicated
CPT/HCPCS: 36415; 36600; 70450; 71045; 80053; 80307; 81001; 82805; 85025; 93005; 99284

== ENCOUNTER 2020-11-06 09:13 | Inpatient (IN) | payer OTHER, SELFPAY ==
[2020-11-06] VITALS (20 sets, daily range): BP systolic 84–188; BP diastolic 54–117; PULSE 72–143; RESP 15–27; TEMP 37.3–37.4; O2SAT 95–100; BMI 24.4
--- NOTE | ~2020-11-06 | XR_ITS ---
EXAMINATION: XR chest 1V portable DATE: 11/09/2020 06:05 INDICATION: Intubation. Pneumonia. TECHNIQUE: A single frontal view of the chest was obtained. COMPARISON: Chest single view 11/08/2020 FINDINGS: There are airspace opacities in the lower lung zones, right worse than left. No pleural eff usion or pneumothorax. The heart size is normal. The endotracheal tube tip is 2.7 cm above the myranda . The nasogastric tube tip is beyond the inferior margin of the radiograph, but at least to the stoma ch. There is a comminuted fracture of right clavicle. IMPRESSION: 1. Worsened airspace opacities in the lower lung zones, right worse than left, consistent with atelec tasis versus pneumonia. 2. Comminuted fracture of right clavicle. Reviewed, dictated and finalized at location A. IMPRESSION: 1. Worsened airspace opacities in the lower lung zones, right worse than left, consistent with atelectasis versus pneumonia. 2. Comminuted fracture of right clavicle.
--- NOTE | ~2020-11-06 | XR_ITS ---
XR chest ET placement 11/06/2020 18:09 Indication: Respiratory distress. Endotracheal tube placement. Procedure: AP portable chest Comparison: Comparison to multiple prior studies sequentially, with oldest reviewed study dated 02/25. Findings: Endotracheal tube tip 4.4 cm above the myranda. NG tube in the stomach. Heart size normal. N o focal air space disease, pulmonary edema, pleural effusion or suspected pneumothorax. Impression: 1: No acute cardiopulmonary disease. Reviewed, dictated and finalized at location A. Impression: 1: No acute cardiopulmonary disease.
--- NOTE | ~2020-11-06 | XR_ITS ---
EXAMINATION: XR chest 1V portable DATE: 11/08/2020 05:58 INDICATION: Intubated. TECHNIQUE: A single frontal view of the chest was obtained. COMPARISON: Chest single view 11/07/2020 FINDINGS: The chest demonstrates clear lungs without pneumonia, pleural effusion, or pneumothorax. Th e heart size is normal. The endotracheal tube tip is 3.5 cm above the myranda. The nasogastric tube ti p is in the stomach. There is a comminuted fracture of right clavicle. IMPRESSION: 1. No acute cardiopulmonary disease. 2. Comminuted fracture of right clavicle. Reviewed, dictated and finalized at location A.
--- NOTE | ~2020-11-06 | CT_ITS ---
EXAMINATION: CT brain wo con DATE: 11/06/2020 09:59 INDICATION: Altered mental status with hallucinations post fall one week prior. TECHNIQUE: Computed tomography (CT) of the head was performed without intravenous contrast. Sagittal and coronal reconstructions were performed. The mA was adjusted according to patient size. Iterative reconstruction technique was employed. The dose-length product was 1210.67 mGy-cm. COMPARISON: head CT dated 09/22/2020 FINDINGS: Evaluation mildly limited by motion artifact on the initial and to lesser degree to repeated sets of images. No fracture. No acute intracranial hemorrhage, acute infarction or abnormal extra axial fluid collection. Unchanged mild dystrophic calcific lesion at the bilateral lentiform nuclei. Ventricles are normal and symmetric. No mass/mass effect. The orbits, paranasal sinuses and mastoid air cells ar e normal. IMPRESSION: 1. No fracture or acute intracranial process. Evaluation mildly limited by patient motion artifact on the initial and 2 repeated sets of images. Reviewed, dictated and finalized at location A. IMPRESSION: 1. No fracture or acute intracranial process. Evaluation mildly limited by judith ent motion artifact on the initial and 2 repeated sets of images.
--- NOTE | ~2020-11-06 | XR_ITS ---
XR clavicle RT 11/06/2020 19:15 Indication: Right clavicle pain after Procedure: 2 views right clavicle Comparison: No prior studies for comparison. Findings: There is a comminuted displaced distal right clavicular fracture with intact acromioclavicu lar joint. Glenohumeral joint and anatomic alignment. Surrounding osseous structures within normal li mits. Impression: 1: Comminuted displaced distal right clavicular fracture. Reviewed, dictated and finalized at location A. Impression: 1: Comminuted displaced distal right clavicular fracture.
--- NOTE | ~2020-11-06 | XR_ITS ---
EXAMINATION: XR chest 1V portable DATE: 11/07/2020 05:44 INDICATION: Intubated. TECHNIQUE: A single frontal view of the chest was obtained. COMPARISON: Chest single view 11/06/2020 FINDINGS: There is no pneumonia, pleural effusion, or pneumothorax. The heart size is normal. The end otracheal tube tip is 3.3 cm above the myranda. The nasogastric tube tip is in the stomach. There is a comminuted fracture of right clavicle. IMPRESSION: 1. No acute cardiopulmonary disease. 2. Comminuted fracture of right clavicle. Reviewed, dictated and finalized at location A.
--- NOTE | ~2020-11-06 | XR_ITS ---
XR abdomen NG/feed tube insert INDICATION: Evaluate NG tube position. TECHNIQUE: Limited KUB perform for evaluating NG tube . COMPARISON: No prior studies for comparison. FINDINGS: NG tube tip in the stomach, proximal side port near the GE junction. Visualized bowel gas pattern is unremarkable. IMPRESSION: 1: NG tube tip in the stomach, side port near the GE junction. Reviewed, dictated and finalized at location A.
--- NOTE | 2020-11-06 09:14 | ECG_ITS ---
Measurements Intervals [place] Rate: 110 P: 54 MO: 132 QRS: 44 QRSD: 110 T: 59 QT: 320 QTc: 433 Interpretive Statements SINUS TACHYCARDIA INCOMPLETE RIGHT BUNDLE BRANCH BLOCK BASELINE ARTIFACT- I, II, III, AVR, AVL, AVF, V1-V6 ABNORMAL ECG Electronically Signed On 11-06-2020 10:43:26 CDT by Demarcus Rea D.O.
--- NOTE | 2020-11-06 09:15 | ED.AMS ---
HPI - Altered Mental Status General Chief Complaint: Altered Mental Status Stated Complaint: hallucinations History of Present Illness HPI narrative: 40 yo male brought into the ED by EMS from home for altered mental status. His mother reportedly called them because he was hallucinating and displaying nonsensical speech. He has a h/o of fentanyl and methamphetamine abuse. On arrival he is not able to provide any significant history. He does say that he has not drank any alcohol in years. Unable to tell me if he has used any other drugs. Related Data Home Medications Medication Instructions Recorded Confirmed alprazolam 01/25/20 dextroamphetamine-amphetamine 01/25/20 naproxen 01/25/20 01/25/20 Allergies Allergy/AdvReac Type Severity Reaction Status Date / Time Penicillins Allergy Severe Anaphylaxis Verified 08/07/20 20:26 codeine Allergy Intermediate Swelling Verified 08/07/20 20:26 Review of Systems Review of Systems: ROS unobtainable: Yes unobtainable due to mental status PMFSH Past Medical History Medical History Alcoholic Polysubstance abuse Surgical History Surgical History H/O fasciotomy Left forearm History of knee surgery Social History Social History Social History: History of IV drug abuse but now clean. Smoking status: Never smoker Alcohol intake: current Substance use: never Gender identity (if verbalized by the patient): Male Exam Const: General: healthy appearing, no acute distress and alert Limitations: altered mental status HENMT: Head: normal to inspection, no contusions and no hematomas Eyes: Pupils: Equal, round and reactive pupils present EOM: EOMs intact bilaterally Neck: Neck: normal visual inspection Resp: Effort & Inspection: normal respiratory effort Auscultation: clear to auscultation bilaterally Cardio: Rate: tachycardic Rhythm: regular rhythm GI: GI Palp: Yes Soft to palpation and No Tenderness to palpation present (GI) Skin: General skin exam: normal color Neuro: General: no focal motor deficits Gait exam (Neuro): Normal gait present Extrem: General: normal to inspection Psych: Affect: normal affect Thought content: Yes other Other: random meandering and often incomprehensible speech. Mildly agitated,but redirectable. Course Vital Signs Vital signs: Vital Signs Temperature 37.4 C 11/06/20 09:15 Pulse Rate 114 H 11/06/20 09:15 Respiratory Rate 18 11/06/20 09:15 Blood Pressure 145/117 H 11/06/20 09:15 Pulse Oximetry 99 11/06/20 09:15 Temperature 37.4 C 11/06/20 09:15 Pulse Rate 118 H 11/06/20 17:39 Respiratory Rate 24 H 11/06/20 17:39 Blood Pressure 188/91 H 11/06/20 17:39 Pulse Oximetry 100 11/06/20 17:39 Procedures Intubation Intubation #1: Intubation Date: 11/06/20 Intubation Time: 17:41 sedative: Etomidate Mg Given: 20 paralytic: Rocuronium Mg Given: 50 Laryngoscope: fiber optic video scope Tube Size (cm): 8.0 Method of Intubation: orotracheal Number of Attempts: 1 Tube Secured Depth (cm): 26 Tube Secured Location: teeth Tube Placement Confirmation: visualized tube passing through cords, equal breath sounds bilaterally, no breath sounds over epigastrium and confirmation by capnometry Patient Tolerated Procedure: well Intubation Complications: none Additional Comments: He had received high doses of multiple medications and despite this he continued to be extremely agitated. He did have fluctuating mental status with period of snoring and brief respiratory pauses. At this point I felt that it was in the best interest of the patient to intubate for airway protection, so that we could adequately sedate him to prevent him harming himself
[2020-11-06] MEDS: LORazepam INJ (*CRX) 2 MG/ML VIAL 1 MG IV PUSH (09:37)
[2020-11-06] MEDS: SODIUM CHLORIDE 0.9% IV 1,000 ML 999 ML IV CONT (09:37)
[2020-11-06 09:57] LABS: Basophils Absolute Auto 0.1 K/mm3 (0.0-0.1); Basophils Percent Auto 1.1 % (0.2-1.2); Eosinophils Absolute Auto 0.4 K/mm3 (0-0.3); Hematocrit 35.4 % (42.0-52.0); Hemoglobin 12.2 g/dL (14.0-18.0); Immature Granulocyte Absolute 0.03 K/mm3 (0.00-0.031); Immature Granulocyte Percent A 0.3 % (0-0.5); Lymphocytes Absolute Auto 1.27 K/mm3 (0.9-3.2); Lymphocytes Percent Auto 12.6 % (18.3-44.2); Mean Corpuscular HGB Conc 34.5 g/dl (32-36); Mean Corpuscular Hemoglobin 28.6 pg (26-34); Mean Corpuscular Volume 83.1 fl (80-100); Monocytes Absolute Auto 0.7 K/mm3 (0.1-0.6); Monocytes Percent Auto 6.6 % (2.6-8.5); Neutrophils Absolute Auto 7.6 K/mm3 (1.3-6.7); Neutrophils Percent Auto 75.4 % (45.5-73.1); Platelet Count Result 347 k/mm3 (150-375); Red Blood Count 4.26 M/mm3 (4.6-6.20); Red Cell Distribution Width 12.2 % (11.5-14.5)
--- NOTE | 2020-11-06 10:02 | PC.NURSE ---
Pt returns from CT, per retail maintenance technician pt was unable to hold still very well for the exam. Pt continues to be confused, and nonsensical speach, reaching for things that aren't there.
[2020-11-06 10:06] LABS: Alanine Aminotransferase 24 U/L (4-50); Alkaline Phosphatase 67 U/L (38-126); Anion Gap 7 mmol/L (8-16); Aspartate Amino Transferase 34 U/L (17-59); Bilirubin,Total 0.6 mg/dL (0.2-1.3); Blood Urea Nitrogen 23 mg/dL (9-20); Calcium 8.5 mg/dL (8.4-10.2); Carbon Dioxide 29 mmol/L (22-30); Chloride 100 mmol/L (98-107); Estimated CRCL calculation 97 ml/min; Estimated Glomerular Filt Rate > 60; Glucose 183 mg/dL (75-110); Potassium 3.2 mmol/L (3.4-5.0); Sodium 136 mmol/L (137-145)
[2020-11-06 10:15] LABS: Ethanol < 10 mg/dL (<10)
--- NOTE | 2020-11-06 10:25 | PC.NURSE ---
Pt didn't recognize mother upon return to room. Now pt yelling at his mom intermittently, about needing to use her phone, someone is after me . Pt will not expand upon what is going on when asked.
--- NOTE | 2020-11-06 10:30 | PC.NURSE ---
Note pt is using his call harvey like a phone and talking into it.
--- NOTE | 2020-11-06 10:48 | PC.NURSE ---
Attempt to stand pt up at bedside with assist x2 to void. Pt assisted back to bed after being unable to urinate. Pt somewhat ataxic, shaking, tremorous. Pt continues to say things nonsensically, and continues to hallucinate.
[2020-11-06] MEDS: LORazepam INJ (*CRX) 2 MG/ML VIAL IV PUSH (11:08)
--- NOTE | 2020-11-06 11:25 | PC.NURSE ---
Note pt up and out of bed multiple times with side rails up. Mom states he's not listening to me any longer . Will not stay still without constant reminding.
--- NOTE | 2020-11-06 11:37 | PC.NURSE ---
Pt noted to be out of bed, has pulled IV line out, and is getting dressed. Has bled all over the floor and himself. Attempting to clean pt. BHAKTI Barney made aware of pt escalating and becoming a risk to his safety. Planning to place sitter at bedside. Pt calms easily. Report to BHAKTI Kyle, to continue care.
--- NOTE | 2020-11-06 11:38 | PC.NURSE ---
Assumed care of pt, pt is upright and agitated, pulled out IV. Blood being tracked around room. Housekeeping called. Redirected pt to bed and straight cath'd. Pt is re directable. Talking nonsensical. Spoke to gold reclaimer to request sitter. Sitter at bedside at this time.
--- NOTE | 2020-11-06 11:40 | PC.NURSE ---
Pt staight cathed with first attempt per this RN with BHAKTI Kyle in attendance. Pt tolerated procedure well. Is cooperative but becoming more difficult to redirect behavior.
[2020-11-06 11:52] LABS: Add Urine Microscopic? YES; Appearance Urine Cloudy (Clear); Bacteria Urine Trace /hpf; Bilirubin Urine Negative (Negative); Blood Urine 3+ (Negative); Color Urine Yellow (Yellow); Glucose Urine UA Negative (Negative); Ketones Urine Negative (Negative); Leukocyte Esterase Ur Negative LEU/UL (Negative); Mucus Urine Few /lpf; Nitrate Urine Negative (Negative); Protein Urine 2+ mg/dL (Negative); RBC Urine >75 /hpf (0-2); Specific Grav Ur 1.025 (1.001-1.035); Squamous Epithelial Cell Urine Rare /hpf (Few); Urobilinogen Urine Negative mg/dL (<2.0); WBC Urine 16-20 /hpf
[2020-11-06] MEDS: HALOPERIDOL LACTATE 5 MG/ML VIAL IM ×2 (11:54→13:43)
[2020-11-06 12:17] LABS: Barbiturate Screen Urine Negative (Negative); Benzodiazepines Screen Urine Negative (Negative)
[2020-11-06 12:37] LABS: Cannabinoid Screen Urine Negative (Negative); Cocaine Screen Urine Negative (Negative); Methadone Screen Urine Negative (Negative); Opiate Screen Urine Negative (Negative); Phencyclidine Screen Urine Negative (Negative)
[2020-11-06 13:22] LABS: Amphetamine Screen Urine Positive (Negative)
--- NOTE | 2020-11-06 13:43 | PC.NURSE ---
Pt found standing on stretcher, EDP at bedside and gave order to given Haldol 5, IM.
[2020-11-06] MEDS: LORazepam INJ (*CRX) 2 MG/ML VIAL 5 MG IM (15:13)
[2020-11-06] MEDS: PHENobarbitaL sodium (*CRX) 130 MG/ML VIAL 260 MG IV PUSH (15:58)
--- NOTE | 2020-11-06 16:10 | PC.NURSE ---
EDP at bedside, security at bedside, two RN's and a tech at bedside due to pt violent behavior, pt is agitated and yelling, swinging at staff, verbal aggression and attempting to leave room, pt not able to be directed. Pt placed in four point restraints for self protection. Pt remains alert and screaming at staff - pulling, grabbing, pinching anything he can grab ahold of. Pt placed on tele monitor per EDP and sitter remains at bedside. VSS. Pt continues to thrash on stretcher and speaking nonsensical.
[2020-11-06 16:23] LABS: Free T4 Free Thyroxine 1.17 ng/mL (0.78-2.19)
[2020-11-06 16:53] LABS: Creatine Kinase 310 U/L (55-170)
[2020-11-06] MEDS: dexmedeTOMIDine 400 MCG/100 ML 400 MCG/100 ML BAG IV CONT (16:53)
[2020-11-06] MEDS: SODIUM CHLORIDE 0.9% IV 2,000 ML 999 ML IV CONT (17:01)
--- NOTE | 2020-11-06 17:30 | PC.NURSE ---
EDP at bedside to prepare pt for intubation, crash cart in room, pt on monitor, resp at bedside. Pt continues to thrash.
--- NOTE | 2020-11-06 17:34 | PC.NURSE ---
20 Etomidate, 50 ROCC given IVP per EDP VORB at bedside for attempt w/ intubation. Pt remains on monitor w/ bag mask assist at this time.
--- NOTE | 2020-11-06 17:38 | PC.NURSE ---
Pt intubated w/ equal chest rise and fall, positive color change, 25 marked at lip.
--- NOTE | 2020-11-06 17:41 | PC.NURSE ---
violent restraints removed and soft bilat non violent wrist restraints placed at this time
[2020-11-06] MEDS: RAPID SEQUENCE INTUBATION KIT 1 EACH (17:44)
--- NOTE | 2020-11-06 17:52 | PM.IMHP ---
H&P: HPI History of Present Illness Date/Time: 11/06/20 17:52 this is a 40-year-old male patient who has a history of alcoholism and methamphetamine use. The patient was brought to the emergency room via EMS. The patient had been hallucinating and displaying and erratic speech and behavior. He has a history of polysubstance abuse. The patient had been placed in the the restraints due to his behavior. The patient was at risk for hurting himself and the staff. I witnessed the patient grabbed a nurse's hand and would like go harming the nurse. The patient was killing and screaming while I saw him in the emergency room. The patient had multiple doses of Ativan and Haldol as well as Valium in the emergency room. The patient was given 260 mg of phenobarbital as well. The backfiller had been notified and is to be admitted to ICU. The patient was being prepared for intubation to protect his airway since he had had multiple sedating medications. Intubation was necessary to protect the airway due to the large amount of sedated of medication. H&H is 12.2 and 35.4. His blood sugars noted to be 183. Total creatinine kinase 310. TSH is 7.48 but free T4 is 1.17. The patient is positive for amphetamines but negative for ethyl alcohol. Is felt that the patient may be withdrawing from alcohol with methamphetamine usage. Head CT was read as no fracture or acute intracranial process. The patient had been in the emergency room on 09/22/2020 also as he was found unresponsive by his mother with fentanyl and a pipe nearby. The patient was given norcan and the patient required trade sales assistant ventilation for 15 minutes. He started to vomit. The patient was discharged to home at that time last month.. Was noted to be 4.4 cm above the myranda NG tube in the stomach. However, today the patient is being admitted to inpatient ICU on 11/06/2020. Chief Complaint: Aggressive behavior Review of Systems Review of Systems: ROS unobtainable: Yes unobtainable due to endotracheal tube PMFSH Past Medical History Medical History (Updated 11/06/20 @ 18:19 by Amy Parker NP) Alcoholic Bilateral elbow fractures Chronic GERD Depression with anxiety Hard of hearing Left ear Hyperlipidemia Polysubstance abuse With a history of heroin overdose. Surgical History Surgical History (Updated 11/06/20 @ 18:19 by Amy Parker NP) H/O fasciotomy Left forearm History of carpal tunnel release Left forearm History of knee surgery Family History Family History (Updated 11/06/20 @ 18:20 by Amy Parker NP) Mother Borderline personality disorder Father Acute myocardial infarction Hypertension Social History Social History (Updated 11/06/20 @ 18:23 by Amy Parker NP) Social History: History of IV drug abuse. Polysubstance abuse. Including heroin, methamphetamines, cocaine, narcotics, and fentanyl. He has a history of alcohol abuse. 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 Previous admission he was listed as a full code and his mother was listed as surrogate decision maker. The patient was listed to have 2 children a son and a daughter. Smoking status: Never smoker Alcohol intake: current Substance use: never Gender identity (if verbalized by the patient): Male Meds Home Medications and Allergies Home Medications Medication Instructions Recorded Confirmed Type alprazolam 01/25/20 History dextroamphetamine-amphetamine 01/25/20 History naproxen 01/25/20 01/25/20 History chlordiazepoxide HCl 25 mg PO Q6H PRN #20 cap 03/28/20 Rx hydrocodone-acetaminophen 1 tablet PO Q6H PRN #12 tablet 08/08/20 Rx hydrocodone-acetaminophen 1 tablet PO Q6H PRN #12 tablet 08/08/20 Rx sulfamethoxazole-trimethoprim 1 tablet PO Q12H #20 tablet 08/08/20 Rx [Bactrim DS] sulfamethoxazole-trimethoprim 1 tablet PO Q12H #20 tablet 08/08/20 Rx [Bactrim DS] Allergies Allergy/AdvRe
--- NOTE | 2020-11-06 18:20 | PC.NURSE ---
Per EDP give pt 80mg Propofol due to thrashing on way to ICU. EDP at bedside and gave VORB.
[2020-11-06] MEDS: PROPOFOL IV EMULSION 200 MG/20 ML VIAL 80 MG IV PUSH (18:24)
--- NOTE | 2020-11-06 18:25 | PC.NURSE ---
Called patients mother and gave her an update patient
[2020-11-06] MEDS: MIDAZOLAM HCL (*CRX) 2 MG/2 ML VIAL 5 MG IV PUSH (18:59)
--- NOTE | 2020-11-06 19:59 | ADMGEN ---
This patient, Raffaele Valenzuela, was admitted to Intensive Care Unit-8 at 1830. Patient/family oriented to hospital policies and general routines including ID bracelet, bed and alarms, visiting hours, pain management, procedures, bathroom and other care routines, personal items, smoking policy, room service/diet, and visiting hours. Information on how to activate the Rapid Response Team has been discussed. Patient/Family are encouraged to report perceived risks to care and to ask questions if they do not understand what they are told or what they should do.
[2020-11-06] MEDS: PROPOFOL IV EMULSION 100 ML 15.12 MG IV CONT (20:22)
[2020-11-06] MEDS: LACTATED RINGERS 1,000 ML 125 ML IV CONT (20:51)
[2020-11-06] MEDS: PANTOPRAZOLE SODIUM IV 40 MG VIAL IV PUSH (22:49)
[2020-11-07] VITALS (36 sets, daily range): BP systolic 86–125; BP diastolic 50–76; PULSE 66–93; RESP 15–24; TEMP 36.9–37.7; O2SAT 95–100
[2020-11-07] MEDS: dexmedeTOMIDine 400 MCG/100 ML 400 MCG/100 ML BAG 8.4 MCG IV CONT (03:58)
[2020-11-07] MEDS: PROPOFOL IV EMULSION 100 ML 17.64 MG IV CONT (03:59)
[2020-11-07] MEDS: LACTATED RINGERS 1,000 ML 125 ML IV CONT ×2 (04:01→08:19)
[2020-11-07 04:41] LABS: Basophils Absolute Auto 0.1 K/mm3 (0.0-0.1); Basophils Percent Auto 0.6 % (0.2-1.2); Eosinophils Absolute Auto 0.4 K/mm3 (0-0.3); Eosinophils Percent Auto 2.5 % (0-4.4); Hematocrit 32.4 % (42.0-52.0); Hemoglobin 10.6 g/dL (14.0-18.0); Immature Granulocyte Absolute 0.04 K/mm3 (0.00-0.031); Immature Granulocyte Percent A 0.2 % (0-0.5); Lymphocytes Absolute Auto 1.64 K/mm3 (0.9-3.2); Lymphocytes Percent Auto 10.2 % (18.3-44.2); Mean Corpuscular HGB Conc 32.7 g/dl (32-36); Mean Corpuscular Hemoglobin 28.9 pg (26-34); Mean Corpuscular Volume 88.3 fl (80-100); Monocytes Absolute Auto 2.3 K/mm3 (0.1-0.6); Monocytes Percent Auto 14.5 % (2.6-8.5); Neutrophils Absolute Auto 11.6 K/mm3 (1.3-6.7); Platelet Count Result 247 k/mm3 (150-375); Red Blood Count 3.67 M/mm3 (4.6-6.20); Red Cell Distribution Width 12.7 % (11.5-14.5); White Blood Count 16.1 K/mm3 (4.5-10.0)
[2020-11-07 04:46] LABS: Alveolar/Arterial O2 Gradient 71.5 mmHg; Base Excess ABG -0.5 mEq/l (+/-2.0); Carboxyhemoglobin 0.3 % THb (0-2.0); Fractional Inspired Oxygen 30 %; HCO3 ABG 23.4 mEq/l (22.0-26.0); Methemoglobin ABG 0.2 %THb (0-1.5); Oxygen Content ABG 16.9 %vol (16.0-22.0); Oxygen Saturation ABG 97.8 % (95.0-100.0); Oxyhemoglobin 96.4 % THb (90.0-100.0); PO2 ABG 100.1 mmHg (80.0-100.0); PO2 FiO2 Ratio Arterial Blood 3.34 %; Reduced Hemoglobin 3.1 %THb (0-5.0); Total Hemoglobin 12.4 g/dL (12.0-18.0); pH ABG 7.431 (7.350-7.450)
[2020-11-07 04:47] LABS: Arterial Blood Gas Vent Mode CMV; Arterial Blood Gas Ventilator rate 15 /MIN; Device VENTILATOR; Modified Allen's Test Pass; Site Drawn RIGHT RADIAL
[2020-11-07 04:48] LABS: Arterial Blood Gas PEEP 5 cmH2O; Arterial Blood Gas Tidal Volume 450 ml
[2020-11-07 04:56] LABS: Alanine Aminotransferase 25 U/L (4-50); Albumin Level 3.1 g/dL (3.5-5.1); Alkaline Phosphatase 59 U/L (38-126); Anion Gap 3 mmol/L (8-16); Aspartate Amino Transferase 60 U/L (17-59); Bilirubin,Total 0.8 mg/dL (0.2-1.3); Blood Urea Nitrogen 22 mg/dL (9-20); Calcium 8.1 mg/dL (8.4-10.2); Carbon Dioxide 27 mmol/L (22-30); Chloride 107 mmol/L (98-107); Estimated CRCL calculation 108 ml/min; Estimated Glomerular Filt Rate > 60; Glucose 97 mg/dL (75-110); Magnesium 1.9 mg/dL (1.6-2.3); Potassium 3.1 mmol/L (3.4-5.0); Sodium 137 mmol/L (137-145)
[2020-11-07 04:57] LABS: Lactic Acid Reflex 2.5 mmol/L (0.7-2.1)
[2020-11-07 07:39] LABS: Reflex Lactic Acid Yes or No Add Lactic
[2020-11-07] MEDS: PROPOFOL IV EMULSION 100 ML 20.16 MG IV CONT (08:15)
[2020-11-07] MEDS: PANTOPRAZOLE SODIUM IV 40 MG VIAL IV PUSH (08:19)
[2020-11-07] MEDS: diazePAM INJ (*CRX) 10 MG/2 ML SYRINGE IM (11:06)
--- NOTE | 2020-11-07 12:09 | WPDCNINT ---
Assessment and Plan Assessment and plan (1) Polysubstance abuse: Code(s): F19.10 - Other psychoactive substance abuse, uncomplicated Status: Chronic (2) Amphetamine-induced psychotic disorder: Qualifiers: Complication of substance-induced condition: with hallucinations Qualified Code(s): F15.951 - Other stimulant use, unspecified with stimulant-induced psychotic disorder with hallucinations Code(s): F15.959 - Other stimulant use, unspecified with stimulant-induced psychotic disorder, unspecified Status: Acute (3) Methamphetamine intoxication: Code(s): F15.929 - Other stimulant use, unspecified with intoxication, unspecified Status: Acute Assessment and Plan: continue sedation with high-dose propofol and Precedex for a goal RASS of -3 to -4. it is too early for spontaneous breathing trials today. decrease lactated Ringer's to 75 cc an hour Continue DVT prophylaxis with Lovenox 40 mg subcu daily start valium 10 mg PO Q12h today Additional Plan Code status: Full code Critical care time spent: 32 minutes This dictation may have been done utilizing a voice recognition system. Attempts have been made to correct errors. However, there may be uncorrected grammatical, spelling, and recognition errors present. Due to a high probability of clinically significant, life threatening deterioration, the patient required my highest level of preparedness to intervene emergently and I personally spent this critical care time directly and personally managing the patient. This critical care time included obtaining a history; examining the patient; pulse oximetry; ordering and review of studies; arranging urgent treatment with development of a management plan; evaluation of patient's response to treatment; frequent reassessment; and discussions with other providers. It was exclusive of separately billable procedures and treating other patients and teaching time. Please see Assessment and Plan section and the rest of the note for further information on patient assessment and treatment Window Installation Subcontractor Consult Note Consult date: 11/07/20 Time Seen: 10:00 HPI: Raffaele Valenzuela is a 40 year old male with a history of substance abuse who presents with hallucinations and methamphetamine intoxication. He had significant sympathomimetic activity requiring high doses of IV benzodiazepines with no response. He was later intubated due to severe agitation. He is currently on sedation with propofol and Precedex And his vitals are stable. Urine toxicology screen was only positive for amphetamines and no other substances. His past medical history significant for alcoholism, GERD, hyperlipidemia, depression and anxiety as well as polysubstance abuse. Review of Systems Review of Systems: All systems reviewed & are unremarkable except as noted in HPI and below PMFSH Past Medical History Medical History (Updated 11/07/20 @ 12:13 by Filomena Bolanos MD) Alcoholic Bilateral elbow fractures Chronic GERD Depression with anxiety Hard of hearing Left ear Hyperlipidemia Polysubstance abuse With a history of heroin overdose. Surgical History Surgical History (Updated 11/06/20 @ 18:19 by Amy Parker NP) H/O fasciotomy Left forearm History of carpal tunnel release Left forearm History of knee surgery Family History Family History Mother Borderline personality disorder Father Acute myocardial infarction Hypertension Social History Social History (Updated 11/06/20 @ 18:23 by Amy Parker NP) Social History: History of IV drug abuse. Polysubstance abuse. Including heroin, methamphetamines, cocaine, narcotics, and fentanyl. He has a history of alcohol abuse. 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 Previous admission he was listed as a full code and his mother was listed as surrogat
[2020-11-07] MEDS: PROPOFOL IV EMULSION 100 ML 22.68 MG IV CONT (12:20)
[2020-11-07] MEDS: ENOXAPARIN 40 MG/0.4 ML SYRINGE SUB-Q (12:34)
[2020-11-07] MEDS: dexmedeTOMIDine 400 MCG/100 ML 400 MCG/100 ML BAG 12.6 MCG IV CONT (13:30)
--- NOTE | 2020-11-07 14:23 | PM.IMPN ---
Progress Note: A&P Assessment and Plan (1) Methamphetamine intoxication: Code(s): F15.929 - Other stimulant use, unspecified with intoxication, unspecified Status: Acute (2) Depression with anxiety: Code(s): F41.8 - Other specified anxiety disorders Status: Chronic (3) Polysubstance abuse: Code(s): F19.10 - Other psychoactive substance abuse, uncomplicated Status: Chronic (4) Chronic GERD: Code(s): K21.9 - Gastro-esophageal reflux disease without esophagitis Status: Chronic (5) Amphetamine-induced psychotic disorder: Qualifiers: Complication of substance-induced condition: with hallucinations Qualified Code(s): F15.951 - Other stimulant use, unspecified with stimulant-induced psychotic disorder with hallucinations Code(s): F15.959 - Other stimulant use, unspecified with stimulant-induced psychotic disorder, unspecified Status: Acute (6) Hyperlipidemia: Code(s): E78.5 - Hyperlipidemia, unspecified Status: Chronic (7) Acute respiratory failure: Code(s): J96.00 - Acute respiratory failure, unspecified whether with hypoxia or hypercapnia Status: Acute (8) Alcoholic: Code(s): F10.20 - Alcohol dependence, uncomplicated Status: Acute Additional Plan This is a 40-year-old male patient who has a history of alcoholism and methamphetamine use. The patient was brought to the emergency room via EMS. The patient had been hallucinating and displaying and erratic speech and behavior. He has a history of polysubstance abuse. The patient had been placed in the the restraints due to his behavior. The patient was at risk for hurting himself and the staff. The patient was killing and screaming while I saw him in the emergency room. The patient had multiple doses of Ativan and Haldol as well as Valium in the emergency room. The patient was given 260 mg of phenobarbital as well. The oil well fishing tool technician had been notified and is to be admitted to ICU. The patient was subsequently intuated for protection of his airways. # Acute severe agitation: likely substance induced. UDS positive for amphetamine. on propofol and precedex currently. was given multiple dse of ativan and haldol, phenobarbitol etc in the ED. # Acute ventilatory failure due to medication: intubated and on Mechanical ventilation. continue current ICU care. continue to monitor. # Chronic GERD: protonix # POlysubstance absue: The patient has had many years of drug abuse and had been clean for couple years. He also has a history of alcoholism. blood bank coordinator will need to be consulted once the patient is off of the ventilator for rehab placement if the patient is willing. ethyl alcohol negative on admission. # DVT prohp:L lovenox # NG tube # dirty UA: likely traumatic # Leukoctysois: likely reactve. was normal on admission. # hypokalemia: repalced # Abnormal TSH; 7.4. Free t4 normal. could be due to critical illness. recheck as op basis. # Right clavicular fracture: planned for surgery as op basis. Subjective Date/time seen: 11/07/20 14:23 patinet intubated and sedated joelty. events noted. chart reviewed. Review of Systems Review of Systems: ROS unobtainable: Yes unobtainable due to endotracheal tube and unobtainable due to mental status Exam Narrative: Exam Narrative: General: Intubated and sedated Const: General: cooperative HENMT: Head: normocephalic and atraumatic Neck: Neck: trachea midline and supple Resp: Effort & Inspection: normal respiratory effort Auscultation: clear to auscultation bilaterally Cardio: Rate: regular rate Rhythm: regular rhythm Heart sounds: S1 normal heart sound present and S2 normal heart sound present GI: Inspection: normal to inspection Auscultation: normal bowel sounds Skin: General skin exam: no rashes or lesions noted Extrem: General: no clubbing, cyanosis or edema Objective Data Vital Signs Vital Signs: Rosalinda
[2020-11-07] MEDS: POTASSIUM CHLORIDE 20 MEQ PACKET (FOR LIQUID) 40 MEQ FEED TUBE (16:23)
[2020-11-07] MEDS: LACTATED RINGERS 1,000 ML 75 ML IV CONT (19:58)
[2020-11-07] MEDS: diazePAM INJ (*CRX) 10 MG/2 ML SYRINGE IV PUSH (19:59)
[2020-11-07] MEDS: dexmedeTOMIDine 400 MCG/100 ML 400 MCG/100 ML BAG 14.7 MCG IV CONT (19:59)
[2020-11-07] MEDS: PROPOFOL IV EMULSION 100 ML 20.66 MG IV CONT (21:08)
[2020-11-08] VITALS (33 sets, daily range): BP systolic 89–110; BP diastolic 46–62; PULSE 66–79; RESP 15–21; TEMP 37.1–39.1; O2SAT 92–99
[2020-11-08 00:31] LABS: Glucose Point of Care 83 (65-105)
[2020-11-08] MEDS: PROPOFOL IV EMULSION 100 ML 20.66 MG IV CONT (01:28)
[2020-11-08] MEDS: dexmedeTOMIDine 400 MCG/100 ML 400 MCG/100 ML BAG 10.5 MCG IV CONT ×2 (03:33→20:41)
[2020-11-08 04:51] LABS: Alveolar/Arterial O2 Gradient 72.9 mmHg; Base Excess ABG -0.5 mEq/l (+/-2.0); Carboxyhemoglobin 0.3 % THb (0-2.0); Device VENTILATOR; Fractional Inspired Oxygen 30 %; HCO3 ABG 23.1 mEq/l (22.0-26.0); Methemoglobin ABG 0.4 %THb (0-1.5); Modified Allen's Test Pass; Oxygen Content ABG 16.1 %vol (16.0-22.0); Oxygen Saturation ABG 97.9 % (95.0-100.0); Oxyhemoglobin 96.4 % THb (90.0-100.0); PCO2 ABG 34.3 mmHg (35.0-45.0); PO2 ABG 100.7 mmHg (80.0-100.0); PO2 FiO2 Ratio Arterial Blood 3.36 %; Reduced Hemoglobin 2.9 %THb (0-5.0); Site Drawn LEFT RADIAL; Total Hemoglobin 11.8 g/dL (12.0-18.0); pH ABG 7.446 (7.350-7.450)
[2020-11-08 04:52] LABS: Arterial Blood Gas PEEP 5 cmH2O; Arterial Blood Gas Tidal Volume 450 ml; Arterial Blood Gas Vent Mode CMV; Arterial Blood Gas Ventilator rate 15 /MIN
[2020-11-08] MEDS: PROPOFOL IV EMULSION 100 ML 18.36 MG IV CONT ×4 (05:26→19:29)
[2020-11-08] MEDS: diazePAM INJ (*CRX) 10 MG/2 ML SYRINGE IV PUSH ×2 (08:18→20:06)
[2020-11-08] MEDS: ENOXAPARIN 40 MG/0.4 ML SYRINGE SUB-Q (08:18)
[2020-11-08] MEDS: PANTOPRAZOLE SODIUM IV 40 MG VIAL IV PUSH (08:19)
[2020-11-08 09:14] LABS: Hematocrit 30.8 % (42.0-52.0); Hemoglobin 10.6 g/dL (14.0-18.0); Mean Corpuscular HGB Conc 34.4 g/dl (32-36); Mean Corpuscular Hemoglobin 29.1 pg (26-34); Mean Corpuscular Volume 84.6 fl (80-100); Mean Platelet Volume 8.9 fl (7.4-10.4); Platelet Count Result 215 k/mm3 (150-375); Red Blood Count 3.64 M/mm3 (4.6-6.20); Red Cell Distribution Width 12.5 % (11.5-14.5); White Blood Count 20.7 K/mm3 (4.5-10.0)
[2020-11-08 09:23] LABS: Anion Gap 4 mmol/L (8-16); Blood Urea Nitrogen 19 mg/dL (9-20); Calcium 7.6 mg/dL (8.4-10.2); Carbon Dioxide 28 mmol/L (22-30); Chloride 105 mmol/L (98-107); Estimated CRCL calculation 122 ml/min; Estimated Glomerular Filt Rate > 60; Glucose 111 mg/dL (75-110); Potassium 3.2 mmol/L (3.4-5.0); Sodium 137 mmol/L (137-145)
[2020-11-08 10:18] LABS: Band Neutrophils Percent 2 % (0-6); Lymphocytes Absolute Manual 0.82 K/mm3 (1.1-4.5); Monocytes Absolute Manual 0.41 K/mm3 (0.1-0.90); Monocytes Percent Manual 2 % (3-9); Neutrophils Absolute Manual 19.45 K/mm3 (1.3-6.7); Neutrophils Percent Manual 92 % (46-73); Total Cells Counted 100
[2020-11-08 10:19] LABS: Hypochromasia 2+ (NORMAL); Platelet Estimate Adequate (Adequate)
[2020-11-08] MEDS: LACTATED RINGERS 1,000 ML 75 ML IV CONT (10:49)
[2020-11-08] MEDS: POTASSIUM CHLORIDE 20 MEQ PACKET (FOR LIQUID) 60 MEQ FEED TUBE (10:50)
--- NOTE | 2020-11-08 11:51 | PM.IMPN ---
Progress Note: A&P Additional Plan This is a 40-year-old male patient who has a history of alcoholism and methamphetamine use. The patient was brought to the emergency room via EMS. The patient had been hallucinating and displaying and erratic speech and behavior. He has a history of polysubstance abuse. The patient had been placed in the the restraints due to his behavior. The patient was at risk for hurting himself and the staff. The patient was killing and screaming while I saw him in the emergency room. The patient had multiple doses of Ativan and Haldol as well as Valium in the emergency room. The patient was given 260 mg of phenobarbital as well. The psychological operations officer had been notified and is to be admitted to ICU. The patient was subsequently intuated for protection of his airways. # Acute severe agitation: likely substance induced. UDS positive for amphetamine. on propofol and precedex currently. was given multiple dse of ativan and haldol, phenobarbitol etc in the ED. mgmt per ICU team. on propofol and precedex currently. # Acute ventilatory failure due to medication: intubated and on Mechanical ventilation. continue current ICU care. continue to monitor. # Chronic GERD: protonix # POlysubstance absue: The patient has had many years of drug abuse and had been clean for couple years. He also has a history of alcoholism. revenue coordinator will need to be consulted once the patient is off of the ventilator for rehab placement if the patient is willing. ethyl alcohol negative on admission. # DVT prohp:L lovenox # NG tube # dirty UA: likely traumatic, now wbc going high. # Leukoctysois: likely reactve. was normal on admission. worsening. start antibiotics as planned. ET suction with wbc, likely developing pneumonia. cxr with no active disease. planned to be started on unasyn. # hypokalemia: repalced # Abnormal TSH; 7.4. Free t4 normal. could be due to critical illness. recheck as op basis. # Right clavicular fracture: planned for surgery as op basis. Subjective Date/time seen: 11/08/20 11:51 overnight had a mild fever. he is more awake and communicative though still intuabted and on sedating medications. he is more calmer today Review of Systems Review of Systems: ROS unobtainable: Yes unobtainable due to endotracheal tube and unobtainable due to mental status Exam Narrative: Exam Narrative: General: Intubated and on sedation. awake and communicative Const: General: cooperative HENMT: Head: normocephalic and atraumatic Neck: Neck: trachea midline and supple Resp: Effort & Inspection: normal respiratory effort Auscultation: clear to auscultation bilaterally Cardio: Rate: regular rate Rhythm: regular rhythm Heart sounds: S1 normal heart sound present and S2 normal heart sound present GI: Inspection: normal to inspection Auscultation: normal bowel sounds Skin: General skin exam: no rashes or lesions noted right upper shoudler area with diffuse brusign present Extrem: General: no clubbing, cyanosis or edema Objective Data Vital Signs Vital Signs: Vital Signs - 24 hr 11/07/20 12:00 11/07/20 12:20 11/07/20 13:30 Temperature 99.9 F H Pulse Rate 89 89 89 Respiratory Rate 20 20 20 Blood Pressure 118/65 Pulse Oximetry 100 11/07/20 13:48 11/07/20 14:00 11/07/20 16:00 Temperature 99.5 F Pulse Rate 87 84 78 Respiratory Rate 18 17 Blood Pressure 122/61 100/52 L Pulse Oximetry 100 100 100 11/07/20 17:04 11/07/20 18:00 11/07/20 20:00 Temperature 98.4 F Pulse Rate 87 77 81 Respiratory Rate 17 24 H Blood Pressure 86/50 L 94/51 L Pulse Oximetry 100 100 96 11/07/20 20:29 11/07/20 22:00 11/07/20 23:00 Temperature Pulse Rate 74 75 75 Respiratory Rate 17 Blood Pressure 92/59 L Pulse Oximetry 97 100 95 11/08/20 00:00 11/08/20 01:29 11/08/20 01:59 Temperature 100.8 F H 100.8 F H 98.7 F Pulse Rate 73 Respiratory Rate 17 Blood Pressure 105/49 L Pulse Oximetry 97
--- NOTE | 2020-11-08 12:32 | WPDINTPN ---
Progress Note: A&P Assessment and Plan (1) Methamphetamine intoxication: Code(s): F15.929 - Other stimulant use, unspecified with intoxication, unspecified Status: Acute Assessment and Plan: Continue current sedation with possible SBT trial and extubation tomorrow if no signs of sepsis. (2) Depression with anxiety: Code(s): F41.8 - Other specified anxiety disorders Status: Chronic (3) Polysubstance abuse: Code(s): F19.10 - Other psychoactive substance abuse, uncomplicated Status: Chronic (4) Chronic GERD: Code(s): K21.9 - Gastro-esophageal reflux disease without esophagitis Status: Chronic Assessment and Plan: Continue pantoprazole 40 mg daily (5) Acute respiratory failure: Code(s): J96.00 - Acute respiratory failure, unspecified whether with hypoxia or hypercapnia Status: Acute (6) Amphetamine-induced psychotic disorder: Qualifiers: Complication of substance-induced condition: with hallucinations Qualified Code(s): F15.951 - Other stimulant use, unspecified with stimulant-induced psychotic disorder with hallucinations Code(s): F15.959 - Other stimulant use, unspecified with stimulant-induced psychotic disorder, unspecified Status: Acute (7) Aspiration into lower respiratory tract: Code(s): T17.800A - Unspecified foreign body in other parts of respiratory tract causing asphyxiation, initial encounter Status: Acute Assessment and Plan: We will start clindamycin 900 mg IV q.8 hours. Repeat chest x-ray daily to look for signs of pneumonia follow-up on blood urine and sputum cultures. Additional Plan Code status: Full code Critical care time spent: 33 minutes This dictation may have been done utilizing a voice recognition system. Attempts have been made to correct errors. However, there may be uncorrected grammatical, spelling, and recognition errors present. Due to a high probability of clinically significant, life threatening deterioration, the patient required my highest level of preparedness to intervene emergently and I personally spent this critical care time directly and personally managing the patient. This critical care time included obtaining a history; examining the patient; pulse oximetry; ordering and review of studies; arranging urgent treatment with development of a management plan; evaluation of patient's response to treatment; frequent reassessment; and discussions with other providers. It was exclusive of separately billable procedures and treating other patients and teaching time. Please see Assessment and Plan section and the rest of the note for further information on patient assessment and treatment Subjective Date/time seen: 11/08/20 12:32 Interval history: He had a temp of 38.2? last night and his white count has gone up to 20,000 with neutrophilia. Chest x-ray shows a possible right lower lobe blossoming infiltrate but it is not very clear. There was suspected aspiration upon in the. Review of Systems Review of Systems: All systems reviewed & are unremarkable except as noted in HPI and below Exam Narrative: Exam Narrative: Intubated and sedated Const: General: cooperative HENMT: Head: normocephalic and atraumatic Eyes: General: appearance normal, both eyes and all related structures Neck: Neck: trachea midline and supple Resp: Effort & Inspection: normal respiratory effort Auscultation: clear to auscultation bilaterally Cardio: Rate: regular rate Rhythm: regular rhythm Heart sounds: S1 normal heart sound present and S2 normal heart sound present GI: Inspection: normal to inspection Auscultation: normal bowel sounds Skin: General skin exam: no rashes or lesions noted Extrem: General: no clubbing, cyanosis or edema Objective Data Vital Signs Vital Signs: Vital Signs - 24 hr 11/07/20 13:30 11/07/20 13:48 11/07/20 14:00 Temperature Pulse
[2020-11-08] MEDS: dexmedeTOMIDine 400 MCG/100 ML 400 MCG/100 ML BAG 12.6 MCG IV CONT (12:52)
[2020-11-08] MEDS: CLINDAMYCIN 900 MG/D5W 50 ML 900 MG/50 ML PIGGYBACK 50 MG IVPB ×2 (13:14→21:47)
[2020-11-09] VITALS (25 sets, daily range): BP systolic 93–141; BP diastolic 54–90; PULSE 66–93; RESP 14–18; TEMP 36.8–39.1; O2SAT 93–98; BMI 26.2
[2020-11-09] MEDS: LACTATED RINGERS 1,000 ML 75 ML IV CONT ×2 (00:17→14:01)
[2020-11-09] MEDS: PROPOFOL IV EMULSION 100 ML 16.07 MG IV CONT (00:42)
[2020-11-09 04:08] LABS: Alveolar/Arterial O2 Gradient 88.5 mmHg; Base Excess ABG 0.9 mEq/l (+/-2.0); Carboxyhemoglobin 0.3 % THb (0-2.0); Fractional Inspired Oxygen 30 %; HCO3 ABG 24.6 mEq/l (22.0-26.0); Methemoglobin ABG 0.3 %THb (0-1.5); Oxygen Content ABG 16.7 %vol (16.0-22.0); Oxygen Saturation ABG 96.7 % (95.0-100.0); Oxyhemoglobin 95.3 % THb (90.0-100.0); PCO2 ABG 36.1 mmHg (35.0-45.0); PO2 FiO2 Ratio Arterial Blood 2.77 %; Reduced Hemoglobin 4.1 %THb (0-5.0); Total Hemoglobin 12.4 g/dL (12.0-18.0); pH ABG 7.451 (7.350-7.450)
[2020-11-09 04:09] LABS: Device VENTILATOR; Modified Allen's Test Pass; Site Drawn LEFT RADIAL
[2020-11-09 04:10] LABS: Arterial Blood Gas PEEP 5 cmH2O; Arterial Blood Gas Tidal Volume 450 ml; Arterial Blood Gas Vent Mode CMV; Arterial Blood Gas Ventilator rate 15 /MIN
[2020-11-09] MEDS: PROPOFOL IV EMULSION 100 ML 18.36 MG IV CONT (04:47)
[2020-11-09] MEDS: CLINDAMYCIN 900 MG/D5W 50 ML 900 MG/50 ML PIGGYBACK 50 MG IVPB ×2 (05:01→14:02)
[2020-11-09 05:40] LABS: Basophils Absolute Auto 0.1 K/mm3 (0.0-0.1); Basophils Percent Auto 0.4 % (0.2-1.2); Eosinophils Absolute Auto 0.1 K/mm3 (0-0.3); Eosinophils Percent Auto 0.6 % (0-4.4); Hematocrit 32.6 % (42.0-52.0); Hemoglobin 10.9 g/dL (14.0-18.0); Immature Granulocyte Absolute 0.21 K/mm3 (0.00-0.031); Lymphocytes Absolute Auto 1.05 K/mm3 (0.9-3.2); Lymphocytes Percent Auto 4.8 % (18.3-44.2); Mean Corpuscular HGB Conc 33.4 g/dl (32-36); Mean Corpuscular Volume 86.7 fl (80-100); Mean Platelet Volume 9.8 fl (7.4-10.4); Monocytes Absolute Auto 1.4 K/mm3 (0.1-0.6); Monocytes Percent Auto 6.1 % (2.6-8.5); Neutrophils Absolute Auto 19.2 K/mm3 (1.3-6.7); Neutrophils Percent Auto 87.1 % (45.5-73.1); Platelet Count Result 233 k/mm3 (150-375); Red Blood Count 3.76 M/mm3 (4.6-6.20); Red Cell Distribution Width 12.6 % (11.5-14.5)
[2020-11-09] MEDS: dexmedeTOMIDine 400 MCG/100 ML 400 MCG/100 ML BAG 10.5 MCG IV CONT (06:14)
[2020-11-09 06:23] LABS: Alanine Aminotransferase 48 U/L (4-50); Albumin Level 3.1 g/dL (3.5-5.1); Alkaline Phosphatase 78 U/L (38-126); Anion Gap 5 mmol/L (8-16); Aspartate Amino Transferase 119 U/L (17-59); Bilirubin,Total 0.5 mg/dL (0.2-1.3); Blood Urea Nitrogen 15 mg/dL (9-20); Calcium 7.8 mg/dL (8.4-10.2); Carbon Dioxide 27 mmol/L (22-30); Chloride 105 mmol/L (98-107); Estimated CRCL calculation 122 ml/min; Estimated Glomerular Filt Rate > 60; Glucose 105 mg/dL (75-110); Magnesium 2.1 mg/dL (1.6-2.3); Potassium 3.7 mmol/L (3.4-5.0); Sodium 137 mmol/L (137-145)
[2020-11-09] MEDS: PANTOPRAZOLE SODIUM IV 40 MG VIAL IV PUSH (08:10)
[2020-11-09] MEDS: diazePAM INJ (*CRX) 10 MG/2 ML SYRINGE IV PUSH ×2 (08:10→21:30)
[2020-11-09] MEDS: ENOXAPARIN 40 MG/0.4 ML SYRINGE SUB-Q (08:10)
[2020-11-09 11:28] LABS: Alveolar/Arterial O2 Gradient 85.3 mmHg; Base Excess ABG 2.8 mEq/l (+/-2.0); Fractional Inspired Oxygen 30 %; HCO3 ABG 26.3 mEq/l (22.0-26.0); Oxygen Content ABG 14.9 %vol (16.0-22.0); Oxygen Saturation ABG 97.1 % (95.0-100.0); Oxyhemoglobin 95.4 % THb (90.0-100.0); PCO2 ABG 36.6 mmHg (35.0-45.0); PO2 ABG 85.6 mmHg (80.0-100.0); PO2 FiO2 Ratio Arterial Blood 2.85 %; Site Drawn RIGHT RADIAL; pH ABG 7.475 (7.350-7.450)
[2020-11-09 11:29] LABS: Arterial Blood Gas PEEP 5 cmH2O; Arterial Blood Gas Pressure Support 8 cmH2O; Arterial Blood Gas Vent Mode SPONTANEOUS; Device VENTILATOR; Modified Allen's Test Pass
--- NOTE | 2020-11-09 13:58 | WPDINTPN ---
Progress Note: A&P Assessment and Plan (1) Aspiration into lower respiratory tract: Code(s): T17.800A - Unspecified foreign body in other parts of respiratory tract causing asphyxiation, initial encounter Status: Acute Assessment and Plan: Chest x-ray shows worsening infiltrates in the bilateral lower lung zones., comminuted fracture of the right clavicle -sputum culture positive for Staph aureus, will DISCONTINUE clindamycin and start vancomycin until sensitivities available -blood culture negative x2 (2) Acute respiratory failure: Code(s): J96.00 - Acute respiratory failure, unspecified whether with hypoxia or hypercapnia Status: Acute Assessment and Plan: Acute respiratory failure likely related to methamphetamine intoxication unresponsiveness and impending respiratory failure along with airway protection -patient on CMV mode 30% FiO2, peep of 5 -sedated with propofol and Precedex infusion -will discontinue propofol will place patient on SBT and evaluate for extubation (3) Methamphetamine intoxication: Code(s): F15.929 - Other stimulant use, unspecified with intoxication, unspecified Status: Acute Assessment and Plan: Continue current sedation with possible SBT trial and extubation (4) Depression with anxiety: Code(s): F41.8 - Other specified anxiety disorders Status: Chronic Assessment and Plan: Patient is on Adderall and Xanax at home (5) Polysubstance abuse: Code(s): F19.10 - Other psychoactive substance abuse, uncomplicated Status: Chronic Assessment and Plan: Patient does have a history of polysubstance abuse -also has a history of alcoholism (6) Chronic GERD: Code(s): K21.9 - Gastro-esophageal reflux disease without esophagitis Status: Chronic Assessment and Plan: Continue pantoprazole 40 mg daily (7) Amphetamine-induced psychotic disorder: Qualifiers: Complication of substance-induced condition: with hallucinations Qualified Code(s): F15.951 - Other stimulant use, unspecified with stimulant-induced psychotic disorder with hallucinations Code(s): F15.959 - Other stimulant use, unspecified with stimulant-induced psychotic disorder, unspecified Status: Acute Assessment and Plan: Requiring multiple doses of Ativan, phenobarbital, Haldol, was in 4 point hard restraints. Patient was at risk for harming others and himself and was intubated. Additional Plan Code status: Full code Critical care time spent: 34 minutes This dictation may have been done utilizing a voice recognition system. Attempts have been made to correct errors. However, there may be uncorrected grammatical, spelling, and recognition errors present. Due to a high probability of clinically significant, life threatening deterioration, the patient required my highest level of preparedness to intervene emergently and I personally spent this critical care time directly and personally managing the patient. This critical care time included obtaining a history; examining the patient; pulse oximetry; ordering and review of studies; arranging urgent treatment with development of a management plan; evaluation of patient's response to treatment; frequent reassessment; and discussions with other providers. It was exclusive of separately billable procedures and treating other patients and teaching time. Please see Assessment and Plan section and the rest of the note for further information on patient assessment and treatment Subjective Date/time seen: 11/09/20 13:58 Interval history: 11/09/2020: Patient seen and examined the ICU, remains intubated on CMV mode of ventilation, 30% FiO2, peep of 5. ABG showed adequate ventilation oxygenation. He patient was febrile with a T-max of 102.3?, urine output has been adequate. WBC count of 22.0. Chest x-ray this morning shows worsening airspace opacities in lower lung zones. Right wor
[2020-11-09] MEDS: metroNIDAZOLE 500 MG/ISO 100ML 500 MG/100 ML BAG 100 MG IVPB ×2 (14:38→21:30)
--- NOTE | 2020-11-09 14:45 | PM.IMPN ---
Progress Note: A&P Assessment and Plan (1) Aspiration into lower respiratory tract: Code(s): T17.800A - Unspecified foreign body in other parts of respiratory tract causing asphyxiation, initial encounter Status: Acute (2) Methamphetamine intoxication: Code(s): F15.929 - Other stimulant use, unspecified with intoxication, unspecified Status: Acute (3) Depression with anxiety: Code(s): F41.8 - Other specified anxiety disorders Status: Chronic (4) Polysubstance abuse: Code(s): F19.10 - Other psychoactive substance abuse, uncomplicated Status: Chronic (5) Chronic GERD: Code(s): K21.9 - Gastro-esophageal reflux disease without esophagitis Status: Chronic (6) Hyperlipidemia: Code(s): E78.5 - Hyperlipidemia, unspecified Status: Chronic (7) Amphetamine-induced psychotic disorder: Qualifiers: Complication of substance-induced condition: with hallucinations Qualified Code(s): F15.951 - Other stimulant use, unspecified with stimulant-induced psychotic disorder with hallucinations Code(s): F15.959 - Other stimulant use, unspecified with stimulant-induced psychotic disorder, unspecified Status: Acute (8) Acute respiratory failure: Code(s): J96.00 - Acute respiratory failure, unspecified whether with hypoxia or hypercapnia Status: Acute (9) Alcoholic: Code(s): F10.20 - Alcohol dependence, uncomplicated Status: Acute Additional Plan This is a 40-year-old male patient who has a history of alcoholism and methamphetamine use. The patient was brought to the emergency room via EMS. The patient had been hallucinating and displaying and erratic speech and behavior. He has a history of polysubstance abuse. The patient had been placed in the the restraints due to his behavior. The patient was at risk for hurting himself and the staff. The patient was killing and screaming while I saw him in the emergency room. The patient had multiple doses of Ativan and Haldol as well as Valium in the emergency room. The patient was given 260 mg of phenobarbital as well. The robotic maintenance technician had been notified and is to be admitted to ICU. The patient was subsequently intuated for protection of his airways. # Acute severe agitation: likely substance induced. UDS positive for amphetamine. on propofol and precedex currently. was given multiple dse of ativan and haldol, phenobarbitol etc in the ED. mgmt per ICU team. now off sedation. calm and cooperative # Acute ventilatory failure due to medication: intubated and on Mechanical ventilation. continue current ICU care. continue to monitor. no extubated 11/09 # Chronic GERD: protonix # POlysubstance absue: The patient has had many years of drug abuse and had been clean for couple years. He also has a history of alcoholism. accounts payable payroll coordinator will need to be consulted once the patient is off of the ventilator for rehab placement if the patient is willing. ethyl alcohol negative on admission. # DVT prohp:L lovenox # dirty UA: likely traumatic, now wbc going high. on clindamycin. # Leukoctysois: likely reactve. was normal on admission. worsening. start antibiotics as planned. ET suction with wbc, likely developing pneumonia. cxr with no active disease. startedo n clindamycin. Urine culture no growth. sputum cutlre with staph aureus. on clindamycin which should cover this. wbc count still up. will monitor. recheck in am. blood cultrue no growth so far. # hypokalemia: repalced # Abnormal TSH; 7.4. Free t4 normal. could be due to critical illness. recheck as op basis. # Right clavicular fracture: planned for surgery as op basis. Subjective Date/time seen: 11/09/20 14:45patient was extubated this am. he reports he is coughing but now its gettting better. he was febrile yesterday. he reports he was hallucinating prior to coming here. he is emotional at times during our conversation. Review of Systems Review
[2020-11-09] MEDS: ACETAMINOPHEN 500 MG TABLET 1000 MG PO (21:30)
[2020-11-10] VITALS (15 sets, daily range): BP systolic 95–139; BP diastolic 68–98; PULSE 79–102; RESP 12–18; TEMP 36.5–37; O2SAT 94–100
[2020-11-10] MEDS: IPRATROPIUM BR 0.02% INH SOLN 0.5 MG/2.5 ML VIAL INHALATION ×4 (01:36→20:02)
[2020-11-10] MEDS: ALBUTEROL SULFATE NEB 2.5 MG/0.5 ML INH INHALATION ×4 (01:36→20:01)
[2020-11-10 04:56] LABS: Basophils Absolute Auto 0.1 K/mm3 (0.0-0.1); Basophils Percent Auto 0.4 % (0.2-1.2); Eosinophils Absolute Auto 0.2 K/mm3 (0-0.3); Eosinophils Percent Auto 1.3 % (0-4.4); Immature Granulocyte Absolute 0.06 K/mm3 (0.00-0.031); Immature Granulocyte Percent A 0.4 % (0-0.5); Lymphocytes Percent Auto 7.4 % (18.3-44.2); Mean Corpuscular HGB Conc 34.4 g/dl (32-36); Mean Corpuscular Hemoglobin 28.3 pg (26-34); Mean Corpuscular Volume 82.3 fl (80-100); Mean Platelet Volume 9.4 fl (7.4-10.4); Monocytes Absolute Auto 0.8 K/mm3 (0.1-0.6); Monocytes Percent Auto 5.9 % (2.6-8.5); Neutrophils Absolute Auto 11.4 K/mm3 (1.3-6.7); Neutrophils Percent Auto 84.6 % (45.5-73.1); Platelet Count Result 311 k/mm3 (150-375); Red Blood Count 3.89 M/mm3 (4.6-6.20); Red Cell Distribution Width 12.3 % (11.5-14.5); White Blood Count 13.5 K/mm3 (4.5-10.0)
[2020-11-10 05:14] LABS: Alanine Aminotransferase 57 U/L (4-50); Albumin Level 3.1 g/dL (3.5-5.1); Alkaline Phosphatase 89 U/L (38-126); Anion Gap 2 mmol/L (8-16); Aspartate Amino Transferase 103 U/L (17-59); Bilirubin,Total 0.4 mg/dL (0.2-1.3); Blood Urea Nitrogen 11 mg/dL (9-20); Calcium 7.8 mg/dL (8.4-10.2); Carbon Dioxide 35 mmol/L (22-30); Chloride 102 mmol/L (98-107); Estimated CRCL calculation 141 ml/min; Estimated Glomerular Filt Rate > 60; Glucose 138 mg/dL (75-110); Phosphorus 2.3 mg/dL (2.5-4.5); Sodium 139 mmol/L (137-145)
[2020-11-10 05:51] LABS: Potassium 2.8 mmol/L (3.4-5.0)
[2020-11-10] MEDS: metroNIDAZOLE 500 MG/ISO 100ML 500 MG/100 ML BAG 100 MG IVPB ×3 (07:32→21:42)
[2020-11-10] MEDS: POTASSIUM CHLORIDE 20 MEQ PACKET (FOR LIQUID) 40 MEQ PO (07:34)
[2020-11-10] MEDS: ENOXAPARIN 40 MG/0.4 ML SYRINGE SUB-Q (08:31)
[2020-11-10] MEDS: PANTOPRAZOLE SODIUM IV 40 MG VIAL IV PUSH (08:31)
--- NOTE | 2020-11-10 08:37 | WPDINTPN ---
Progress Note: A&P Assessment and Plan (1) Aspiration into lower respiratory tract: Code(s): T17.800A - Unspecified foreign body in other parts of respiratory tract causing asphyxiation, initial encounter Status: Acute Assessment and Plan: Chest x-ray shows worsening infiltrates in the bilateral lower lung zones., comminuted fracture of the right clavicle -sputum culture positive for Staph aureus, started on vancomycin (initiated on 11/09/2020) -leukocytosis trending down -blood culture negative x2 (2) Acute respiratory failure: Code(s): J96.00 - Acute respiratory failure, unspecified whether with hypoxia or hypercapnia Status: Acute Assessment and Plan: Acute respiratory failure likely related to methamphetamine intoxication unresponsiveness and impending respiratory failure along with airway protection -patient successfully extubated on 11/09 -currently on room air with good O2 sats -continue bronchodilators (3) Methamphetamine intoxication: Code(s): F15.929 - Other stimulant use, unspecified with intoxication, unspecified Status: Acute Assessment and Plan: Watch for withdrawal (4) Depression with anxiety: Code(s): F41.8 - Other specified anxiety disorders Status: Chronic Assessment and Plan: Will restart Xanax (5) Polysubstance abuse: Code(s): F19.10 - Other psychoactive substance abuse, uncomplicated Status: Chronic Assessment and Plan: Patient does have a history of polysubstance abuse -also has a history of alcoholism (6) Chronic GERD: Code(s): K21.9 - Gastro-esophageal reflux disease without esophagitis Status: Chronic Assessment and Plan: Continue pantoprazole 40 mg daily (7) Amphetamine-induced psychotic disorder: Qualifiers: Complication of substance-induced condition: with hallucinations Qualified Code(s): F15.951 - Other stimulant use, unspecified with stimulant-induced psychotic disorder with hallucinations Code(s): F15.959 - Other stimulant use, unspecified with stimulant-induced psychotic disorder, unspecified Status: Acute Assessment and Plan: RESOLVED Required multiple doses of Ativan, phenobarbital, Haldol, was in 4 point hard restraints. Patient was at risk for harming others and himself and was intubated. Additional Plan Discussed with patient and updated him with his condition and plan of care. I answered all questions Code status: Full code Critical care time spent: 32 minutes This dictation may have been done utilizing a voice recognition system. Attempts have been made to correct errors. However, there may be uncorrected grammatical, spelling, and recognition errors present. Due to a high probability of clinically significant, life threatening deterioration, the patient required my highest level of preparedness to intervene emergently and I personally spent this critical care time directly and personally managing the patient. This critical care time included obtaining a history; examining the patient; pulse oximetry; ordering and review of studies; arranging urgent treatment with development of a management plan; evaluation of patient's response to treatment; frequent reassessment; and discussions with other providers. It was exclusive of separately billable procedures and treating other patients and teaching time. Please see Assessment and Plan section and the rest of the note for further information on patient assessment and treatment Subjective Date/time seen: 11/10/20 08:37 Interval history: 11/10/2020: Patient was successfully extubated on 11/09. Remainis on room air this morning. Denies any chest pain, shortness of breath abdominal pain, nausea vomiting. He complains of pain at the site of fractured clavicle on the right side. Patient is hemodynamically stable, urine output has been adequate, afebrile. Patient slept well, positive bowel movements.
[2020-11-10] MEDS: ALPRAZolam (*CRX) 0.5 MG TABLET 1 MG PO (09:00)
[2020-11-10 11:09] LABS: Anion Gap 3 mmol/L (8-16); Blood Urea Nitrogen 10 mg/dL (9-20); Calcium 8.1 mg/dL (8.4-10.2); Carbon Dioxide 35 mmol/L (22-30); Chloride 103 mmol/L (98-107); Estimated CRCL calculation 141 ml/min; Estimated Glomerular Filt Rate > 60; Glucose 137 mg/dL (75-110); Potassium 3.2 mmol/L (3.4-5.0); Sodium 141 mmol/L (137-145)
--- NOTE | 2020-11-10 11:11 | PM.IMPN ---
Progress Note: A&P Assessment and Plan (1) Amphetamine-induced psychotic disorder: Qualifiers: Complication of substance-induced condition: with hallucinations Qualified Code(s): F15.951 - Other stimulant use, unspecified with stimulant-induced psychotic disorder with hallucinations Code(s): F15.959 - Other stimulant use, unspecified with stimulant-induced psychotic disorder, unspecified Status: Acute (2) Acute respiratory failure: Code(s): J96.00 - Acute respiratory failure, unspecified whether with hypoxia or hypercapnia Status: Acute (3) Aspiration into lower respiratory tract: Code(s): T17.800A - Unspecified foreign body in other parts of respiratory tract causing asphyxiation, initial encounter Status: Acute (4) Methamphetamine intoxication: Code(s): F15.929 - Other stimulant use, unspecified with intoxication, unspecified Status: Acute (5) Polysubstance abuse: Code(s): F19.10 - Other psychoactive substance abuse, uncomplicated Status: Chronic (6) Alcoholic: Code(s): F10.20 - Alcohol dependence, uncomplicated Status: Acute (7) Chronic GERD: Code(s): K21.9 - Gastro-esophageal reflux disease without esophagitis Status: Chronic Additional Plan This is a 40-year-old male patient who has a history of alcoholism and methamphetamine use. The patient was brought to the emergency room via EMS. The patient had been hallucinating and displaying and erratic speech and behavior. He has a history of polysubstance abuse. Patient was seen in the ED and was given multiple doses of Ativan and Haldol. The patient was intubated to protect his airway. # Acute severe agitation: likely substance induced. UDS positive for amphetamine. Was on propofol and precedex and was given multiple doses of ativan and haldol, phenobarbitol etc in the ED. Now off sedation and remaining calm and cooperative. # Acute ventilatory failure due to medication: intubated and was on Mechanical ventilation. Able to be extubated 11/09 and weaned to room air # PNA: possible aspiration. Sputum growing RACHEL. Currently on Vanco and Flagyl. WBC trending down. Continue IV abx. Change to moxiflox in AM. # Chronic GERD: continue protonix # Polysubstance abuse: The patient has had many years of drug abuse and had been clean for couple years. He also has a history of alcoholism. administrative assistant coordinator has be consulted . Add thiamine and folate. # Leukoctysois: likely developing pneumonia. Urine culture no growth. sputum cutlre with RACHEL. Blood cultures NGTD # Hypokalemia: low again. Replacement ordered. # Abnormal TSH; 7.4. Free t4 normal. could be due to critical illness. recheck as op basis. # Right clavicular fracture: planned for surgery as op basis. Provide sling # DVT prohp: Lovenox Subjective Date/time seen: 11/10/20 11:11 Interval history: 40yo male with hx of alcohol and drug abuse here for altered mental status. Assuming care. Chart reviewed. Patient feels better today. He has been extubated. He has voided since the Field catheter has been removed. Normal bowel movements. Eating and tolerating well. He has a minimal productive cough. He complains of pain at the site of fractured clavicle on the right side. Exam Narrative: Exam Narrative: AF 98.6 95/70 97 17 100% ra Gen - NARD sitting up in chair Chest - CTA bilaterally, nml RR. Right upper chest deformity with edema and brusing noted. CV - RRR S1/S2; Tle showing no significant dysrhythmias Abd - Soft, NT/ND, Positive BS Ext - No pedal edema Psych - Nml mood and affect Skin - Warm and dry Objective Data Vital Signs Vital Signs: Vital Signs - 24 hr 11/09/20 11:45 11/09/20 12:00 11/09/20 13:54 Temperature 98.5 F Pulse Rate 72 74 Respiratory Rate 15 14 Blood Pressure 93/60 L 112/63 Pulse Oximetry 95 96 94 11/09/20 16:00 11/09/20 18:00 11/09/20 19:36 Temperature 98.2 F
--- NOTE | 2020-11-10 11:22 | PCDIET ---
Nutrition Follow-Up Complete: Nutrition Diagnosis: Inadequate oral intake related to oral intubation as evidenced by NPO status. Nutrition Goal: Patient to meet estimated nutritional needs. Goal in progress. Patient was extubated on 11/09/20 and ate most of his breakfast today on regular diet. Reports good appetite. Reports may have experienced weight loss prior to admission due to drug use. Last recorded weight is 82.9 kg which is stable. Bowel Motility: BM x 2 today. Labs Reviewed: WBC (22.0), Hgb (10.9), Hct (32.6), Alb (3.1), Jaquelin Ca (7.8) Meds Noted: Albuterol, Atrovent, Flagyl, Protonix, Vancomycin, KCl Additional Notes: No documented skin breakdown. Will continue to monitor with same goal. Nutrition Monitoring and Evaluation: Follow up every 7 days.
[2020-11-10] MEDS: POTASSIUM CHLORIDE 20 MEQ TABLET 40 MEQ PO (12:00)
[2020-11-10] MEDS: ACETAMINOPHEN 500 MG TABLET 1000 MG PO ×2 (12:00→22:51)
[2020-11-10] MEDS: ALPRAZolam (*CRX) 0.5 MG TABLET PO (22:52)
[2020-11-11] VITALS (7 sets, daily range): BP systolic 130–146; BP diastolic 85–86; PULSE 67–86; RESP 16; TEMP 36.6–37.3; O2SAT 98–99
[2020-11-11] MEDS: IPRATROPIUM BR 0.02% INH SOLN 0.5 MG/2.5 ML VIAL INHALATION ×2 (01:45→07:59)
[2020-11-11] MEDS: ALBUTEROL SULFATE NEB 2.5 MG/0.5 ML INH INHALATION ×2 (04:29→07:58)
[2020-11-11 04:43] LABS: Anion Gap 5 mmol/L (8-16); Blood Urea Nitrogen 11 mg/dL (9-20); Calcium 8.4 mg/dL (8.4-10.2); Carbon Dioxide 33 mmol/L (22-30); Chloride 103 mmol/L (98-107); Estimated CRCL calculation 141 ml/min; Estimated Glomerular Filt Rate > 60; Glucose 108 mg/dL (75-110); Potassium 3.1 mmol/L (3.4-5.0); Sodium 141 mmol/L (137-145)
[2020-11-11 04:46] LABS: Red Blood Count 3.57 M/mm3 (4.6-6.20); White Blood Count 11.8 K/mm3 (4.5-10.0)
[2020-11-11 04:47] LABS: Hematocrit 29.7 % (42.0-52.0); Hemoglobin 10.3 g/dL (14.0-18.0); Mean Corpuscular HGB Conc 34.7 g/dl (32-36); Mean Corpuscular Hemoglobin 28.9 pg (26-34); Mean Corpuscular Volume 83.2 fl (80-100); Mean Platelet Volume 9.6 fl (7.4-10.4); Platelet Count Result 348 k/mm3 (150-375); Red Cell Distribution Width 12.5 % (11.5-14.5)
[2020-11-11] MEDS: metroNIDAZOLE 500 MG/ISO 100ML 500 MG/100 ML BAG 100 MG IVPB (05:21)
[2020-11-11 05:33] LABS: Vancomycin Trough 5.4 ug/mL (10.0-20.0)
[2020-11-11] MEDS: POTASSIUM CHLORIDE 20 MEQ TABLET 40 MEQ PO (08:56)
[2020-11-11] MEDS: ACETAMINOPHEN 500 MG TABLET 1000 MG PO (08:56)
[2020-11-11] MEDS: FOLIC ACID 1 MG TABLET PO (08:57)
[2020-11-11] MEDS: PANTOPRAZOLE SODIUM IV 40 MG VIAL IV PUSH (08:57)
[2020-11-11] MEDS: THIAMINE HCL 100 MG TABLET PO (08:57)
[2020-11-11] MEDS: MOXIFLOXACIN HCL 400 MG TABLET PO (08:57)
[2020-11-11] MEDS: ENOXAPARIN 40 MG/0.4 ML SYRINGE SUB-Q (08:57)
--- NOTE | 2020-11-11 09:43 | PM.DS ---
DS: Admitting Diagnosis Admitting Diagnosis Admitting Diagnosis: Altered Mental Status DS: Discharge Diagnosis Discharge Diagnosis (1) Amphetamine-induced psychotic disorder: Qualifiers: Complication of substance-induced condition: with hallucinations Qualified Code(s): F15.951 - Other stimulant use, unspecified with stimulant-induced psychotic disorder with hallucinations Code(s): F15.959 - Other stimulant use, unspecified with stimulant-induced psychotic disorder, unspecified Status: Acute (2) Acute respiratory failure: Code(s): J96.00 - Acute respiratory failure, unspecified whether with hypoxia or hypercapnia Status: Acute (3) Aspiration into lower respiratory tract: Code(s): T17.800A - Unspecified foreign body in other parts of respiratory tract causing asphyxiation, initial encounter Status: Acute (4) Methamphetamine intoxication: Code(s): F15.929 - Other stimulant use, unspecified with intoxication, unspecified Status: Acute (5) Polysubstance abuse: Code(s): F19.10 - Other psychoactive substance abuse, uncomplicated Status: Chronic (6) Alcoholic: Code(s): F10.20 - Alcohol dependence, uncomplicated Status: Acute (7) Chronic GERD: Code(s): K21.9 - Gastro-esophageal reflux disease without esophagitis Status: Chronic DS: Summary Hospital Course Reason for hospitalization: This is a 40-year-old male patient who has a history of alcoholism and methamphetamine use. The patient was brought to the emergency room via EMS. The patient had been hallucinating and displaying and erratic speech and behavior. He has a history of polysubstance abuse. Patient was seen in the ED and was given multiple doses of Ativan and Haldol. The patient was intubated to protect his airway. Hospital Course: # Acute severe agitation: likely substance induced. UDS positive for amphetamine but he is on dextroamphetamine from home. Was on propofol and Precedex and was given multiple doses of Ativan and haldol, phenobarbitol etc in the ED. Now off sedation and remaining calm and cooperative. He admits to using buying capsules that he thought were heroin off an acquaintence and now feels these were laced with something. # Acute ventilatory failure due to medication: intubated and was on Mechanical ventilation. Able to be extubated 11/09 and weaned to room air # PNA: possible aspiration. CXR clear initially but noted to have R>L airspace opacities lower lobes on CXR 11/09. Sputum growing RACHEL. Treated with Vanco and Flagyl. WBC peaked at 22K before trending down. Changed to Moxifloxicin. # Chronic GERD: Treated with Protonix # Polysubstance abuse: The patient has had many years of drug abuse and had been clean for couple years. He also has a history of alcoholism. insurance coordinator was consulted. Thiamine and folate added. He was educated about the benefit of abstaining from alcohol and drug use. HIV and Hepatitis panel pending # Leukocytosis: likely related to developing pneumonia. Urine culture no growth. sputum culture with RACHEL. Blood cultures NGTD # Hypokalemia: low at times and replacement ordered. # Abnormal TSH: TSH 7.4 with normal FT4. Probably due to critical illness. Plan to recheck as outpatient. # Right clavicular fracture: Patient already has plan for surgery as outpatient basis. Patient encouraged to keep followup appointment. Status at Discharge Cognitive/behavioral status at discharge: stable Time Spent with Patient Time attestation: Total time spent providing and/or coordinating discharge services: 38 minutes Time spent: Greater than 30 minutes Exam Narrative: Exam Narrative: AF 97.9 130/85 67 16 99% ra Gen - NARD Chest - CTA bilaterally, nml RR CV - RRR S1/S2 Abd - Soft, NT/ND, Positive BS Ext - No pedal edema Psych - Nml mood and affect Skin - Warm and dry DS: Data Data Completed and Pending Labs on day of discharge:
[2020-11-11 13:14] LABS: Hepatitis B Surface Antigen Negative (Negative)
[2020-11-11 13:31] LABS: Hepatitis B Surface Anti Res Negative
[2020-11-11 13:33] LABS: Hepatitis C Virus Antibody Reactive (Negative)
[2020-11-11 13:55] LABS: HIV 1/2 Ab P24 Ag Result Negative (Negative)
[2020-11-14 19:29] LABS: Hepatitis C RNA, Quant PCR <15 IU/mL
[2020-11-14 22:04] LABS: Hepatitis B Core Ab Total Nonreactive (Nonreactive)
--- NOTE | 2020-11-17 09:44 | PC.NURSE ---
HIV is negative HEP C is reactive HEP B Ag and Ab are negative. HEP B core is nonreactive. Dr. Eliezer gay.
== END 2020-11-11 12:36 | disposition home or self-care (01) | DRG 775 ==
LOC: ANHED 10:15 → ANHICU 17:45
PROVIDERS: Internal Medicine; Internal Medicine Critical Care Medicine; Physician Assistant; Admitting Provider Family Medicine; Emergency Provider Emergency Medicine; PCP Family Medicine; Visit Provider Nurse Practitioner
DX: F15.151 Other stimulant abuse with stimulant-induced psychotic disorder with hallucinations (principal); F10.20 Alcohol dependence, uncomplicated; J96.00 Acute respiratory failure, unspecified whether with hypoxia or hypercapnia; F19.10 Other psychoactive substance abuse, uncomplicated; J69.0 Pneumonitis due to inhalation of food and vomit; T17.890A Other foreign object in other parts of respiratory tract causing asphyxiation, initial encounter; B95.61 Methicillin susceptible Staphylococcus aureus infection as the cause of diseases classified elsewhere; K21.9 Gastro-esophageal reflux disease without esophagitis; D72.829 Elevated white blood cell count, unspecified; E87.6 Hypokalemia; F41.8 Other specified anxiety disorders; E78.5 Hyperlipidemia, unspecified; S42.031A Displaced fracture of lateral end of right clavicle, initial encounter for closed fracture; X58.XXXA Exposure to other specified factors, initial encounter
CPT/HCPCS: 31500; 36415; 36600; 51701; 70450; 71045; 73000; 80048; 80053; 80202; 80307; 81001; 82375; 82550; 82805; 82948; 83050; 83605; 83735; 84100; 84439; 84443; 85025; 85027; 86703; 86704; 86706; 86803; 87040; 87070; 87077; 87086; 87186; 87205; 87340; 87522; 93005; 94002; 94003; 94640; 96361; 96372; 96374; 96375; 96376; 99285; A4565; A9270; C9113; G0432; J0131; J1630; J1650; J2060; J2250; J2560; J2704; J3360; J3370; J7030; J7120

== ENCOUNTER 2020-11-14 05:14 | Emergency (ER) | payer OTHER, SELFPAY ==
[2020-11-14 05:17] VITALS: BP 137/60; PULSE 99; RESP 18; TEMP 36.3; O2SAT 100
[2020-11-14] MEDS: KETOROLAC (*BKC) 60 MG/2 ML VIAL IM (06:27)
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
--- NOTE | 2020-11-14 06:45 | PC.NURSE ---
Patient refused arm sling.
== END 2020-11-14 06:47 | disposition home or self-care (01) ==
PROVIDERS: Emergency Provider Emergency Medicine
DX: L89.151 Pressure ulcer of sacral region, stage 1 (principal); M62.838 Other muscle spasm; K21.9 Gastro-esophageal reflux disease without esophagitis; F41.8 Other specified anxiety disorders; E78.5 Hyperlipidemia, unspecified
CPT/HCPCS: 96372; 99283; J1885

== ENCOUNTER 2020-12-03 11:33 | Emergency (ER) | payer OTHER, SELFPAY ==
[2020-12-03 11:34] VITALS: BP 149/97; PULSE 107; RESP 18; TEMP 36.6; O2SAT 99
--- NOTE | 2020-12-03 11:46 | PC.NURSE ---
Pt wanting to leave without seeing physician. Pt verbalized understanding of risks of leaving including . Pt alert and ambulatory. IV that was placed by EMS removed. Pt signed AMA form and ambulated out of department.
== END 2020-12-03 11:46 | disposition left against medical advice (07) ==
LOC: ANHED 11:49
DX: T40.1X1A Poisoning by heroin, accidental (unintentional), initial encounter (principal)
CPT/HCPCS: 99199

== ENCOUNTER 2021-09-22 13:08 | Outpatient (CLI) | payer OTHER, SELFPAY ==
[2021-09-22 13:55] LABS: Hematocrit 45.3 % (42.0-52.0); Hemoglobin 15.5 g/dL (14.0-18.0); Mean Corpuscular HGB Conc 34.2 g/dl (32-36); Mean Corpuscular Hemoglobin 29.6 pg (26-34); Mean Corpuscular Volume 86.5 fl (80-100); Mean Platelet Volume 8.9 fl (7.4-10.4); Platelet Count Result 266 k/mm3 (150-375); Red Blood Count 5.24 M/mm3 (4.6-6.20); Red Cell Distribution Width 11.9 % (11.5-14.5); White Blood Count 7.4 K/mm3 (4.5-10.0)
[2021-09-22 14:10] LABS: Alanine Aminotransferase 23 U/L (4-50); Albumin Level 4.6 g/dL (3.5-5.1); Alkaline Phosphatase 79 U/L (38-126); Anion Gap 7 mmol/L (8-16); Aspartate Amino Transferase 31 U/L (17-59); Bilirubin,Total 0.6 mg/dL (0.2-1.3); Blood Urea Nitrogen 15 mg/dL (9-20); Calcium 8.8 mg/dL (8.4-10.2); Carbon Dioxide 32 mmol/L (22-30); Chloride 101 mmol/L (98-107); Cholesterol 157 mg/dL (0-200); Estimated Glomerular Filt Rate > 60; Glucose 103 mg/dL (65-110); HDL Direct 51 mg/dL; Phosphorus 4.1 mg/dL (2.5-4.5); Sodium 140 mmol/L (137-145); Triglycerides 68 mg/dL (<150)
[2021-09-22 14:21] LABS: LDL Cholesterol Direct 84 mg/dL
[2021-09-22 14:30] LABS: Erythrocyte Sedimentation Rate 1 mm/hr (0-20)
[2021-09-22 14:40] LABS: Prostate Specific Antigen 0.5 ng/mL (< OR = 4.0)
[2021-09-22 14:53] LABS: Hemoglobin A1C 4.9 % (<5.7)
[2021-09-22 15:11] LABS: Free T4 Free Thyroxine 0.85 ng/mL (0.78-2.19); Vitamin D 25 Hydroxy 28.5 ng/mL
[2021-09-22 15:23] LABS: Appearance Urine Clear (Clear); Color Urine Yellow (Yellow)
[2021-09-22 15:24] LABS: Bilirubin Urine Negative (Negative); Blood Urine Negative (Negative); Glucose Urine UA Negative (Negative); Ketones Urine Negative (Negative); Nitrate Urine Negative (Negative); Protein Urine Negative (Negative); Specific Grav Ur 1.015 (1.001-1.035); Urobilinogen Urine Negative mg/dL (<2.0)
[2021-09-22 15:25] LABS: Add Urine Microscopic? NO; Leukocyte Esterase Ur Negative LEU/UL (NEGATIVE)
[2021-09-22 18:07] LABS: Rheumatoid Factor < 8.6 IU/ML (<12)
[2021-09-22 21:18] LABS: Creatinine Urine 101.8 mg/dL
[2021-09-22 21:26] LABS: Microalbumin Urine Random < 6.0 mg/L (0-16.7)
[2021-09-22 21:27] LABS: MALB Creatinine Ratio < 5.9 mg/g (0-30)
== END 2021-09-22 13:09 | disposition home or self-care (01) ==
LOC: ANHLAB 13:14
PROVIDERS: PCP Emergency Medicine; Visit Provider Emergency Medicine
DX: Z00.00 Encounter for general adult medical examination without abnormal findings (principal); F41.9 Anxiety disorder, unspecified; I10 Essential (primary) hypertension
CPT/HCPCS: 36415; 80053; 80061; 80069; 81003; 82043; 82306; 83036; 84153; 84439; 84443; 85027; 85652; 86038; 86039; 86430

== ENCOUNTER 2021-11-20 16:40 | Emergency (ER) | payer OTHER, SELFPAY ==
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
[2021-11-20 16:58] VITALS: BP 136/72; PULSE 85; RESP 16; TEMP 36.1; O2SAT 100
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
== END 2021-11-20 18:30 | disposition home or self-care (01) ==
PROVIDERS: Emergency Provider Nurse Practitioner Family; PCP Emergency Medicine
DX: S46.911A Strain of unspecified muscle, fascia and tendon at shoulder and upper arm level, right arm, initial encounter (principal); S19.9XXA Unspecified injury of neck, initial encounter; K21.9 Gastro-esophageal reflux disease without esophagitis; E78.5 Hyperlipidemia, unspecified; F41.8 Other specified anxiety disorders; V49.9XXA Car occupant (driver) (passenger) injured in unspecified traffic accident, initial encounter
CPT/HCPCS: 72040; 73030; 99284

== ENCOUNTER 2023-08-11 14:43 | Outpatient (CLI) | payer BC, OTHER, SELFPAY ==
--- NOTE | ~2023-08-11 | XR_ITS ---
EXAMINATION: XR chest 2V 08/11/2023 15:04 INDICATION: New onset of hypertension PROCEDURE: 2 view chest COMPARISON: Comparison to multiple prior studies sequentially, with oldest reviewed study dated 11/07. FINDINGS: The lungs are clear. The cardiomediastinal silhouette is within normal limits. There are no pleural effusions. There is no pneumothorax suspected. There is a healed right clavicular fractu re. IMPRESSION: 1: NO ACUTE CARDIOPULMONARY DISEASE. Reviewed, dictated and finalized at location B. [facility]ER
== END 2023-08-11 14:44 | disposition home or self-care (01) ==
LOC: ANHIMG 14:51
PROVIDERS: PCP Emergency Medicine; Visit Provider Emergency Medicine
DX: R05.9 Cough, unspecified (principal)
CPT/HCPCS: 71046

== ENCOUNTER 2024-07-13 11:23 | Emergency (ER) | payer BC, OTHER, SELFPAY ==
--- NOTE | ~2024-07-13 | CT_ITS ---
EXAMINATION: CT abdomen pelvis wo con DATE: 07/13/2024 12:26 INDICATION: Left lower quadrant abdominal pain TECHNIQUE: Computed tomography (CT) of the abdomen and pelvis was performed without intravenous contr ast. Automated exposure control and iterative reconstruction technique were employed. The dose-length product was 239.02 mGy-cm. COMPARISON: 01/22/2016 FINDINGS: Lung bases are clear. Heart size is normal. No pericardial or pleural effusion. Liver, gallbladder, s pleen, pancreas, bilateral adrenal glands and right kidney are normal. 2-3 mm obstructing stone at th e left ureterovesicular junction with mild left hydroureteronephrosis and mild left perinephric stran ding. Bladder is normal. Bowels including the appendix are normal. No free intraperitoneal gas or flu id. No pathologically enlarged abdominal or pelvic lymphadenopathy. Bones are unremarkable. IMPRESSION: 1. Obstructing 2-3 mm stone at the left ureterovesicular junction with mild left hydroureteronephrosi s. Reviewed, dictated and finalized at location [facility] [employer] IMPRESSION: 1. Obstructing 2-3 mm stone at the left ureterovesicular junction with mild lef t hydroureteronephrosis.
[2024-07-13 12:06] VITALS: BP 151/116; PULSE 83; RESP 22; TEMP 36.4; O2SAT 100
[2024-07-13 12:37] VITALS: BP 141/96; PULSE 96; RESP 25; O2SAT 100
--- NOTE | 2024-07-13 12:38 | PC.NURSE ---
pt comes to swing manager and states they have 10/10 pain and are starting to feel lightheaded. this RN got vitals signs reading spO2 100%, hr 96, R 25, bp 141/96
[2024-07-13 13:04] LABS: Basophils Absolute Auto 0.1 K/mm3 (0.0-0.1); Basophils Percent Auto 0.6 % (0.2-1.2); Eosinophils Absolute Auto 0.1 K/mm3 (0-0.3); Eosinophils Percent Auto 1.2 % (0-4.4); Hematocrit 44.8 % (42.0-52.0); Hemoglobin 15.9 g/dL (14.0-18.0); Immature Granulocyte Absolute 0.03 K/mm3 (0.00-0.031); Immature Granulocyte Percent A 0.3 % (0-0.5); Lymphocytes Absolute Auto 1.97 K/mm3 (0.9-3.2); Mean Corpuscular HGB Conc 35.5 g/dl (32-36); Mean Corpuscular Hemoglobin 29.7 pg (26-34); Mean Corpuscular Volume 83.6 fl (80-100); Mean Platelet Volume 9.6 fl (7.4-10.4); Monocytes Absolute Auto 0.6 K/mm3 (0.1-0.6); Monocytes Percent Auto 5.7 % (2.6-8.5); Neutrophils Absolute Auto 8.2 K/mm3 (1.3-6.7); Neutrophils Percent Auto 74.2 % (45.5-73.1); Platelet Count Result 340 k/mm3 (150-375); Red Blood Count 5.36 M/mm3 (4.6-6.20); Red Cell Distribution Width 13.2 % (11.5-14.5)
[2024-07-13 13:14] LABS: Alanine Aminotransferase 34 U/L (6-50); Albumin Level 5.2 g/dL (3.5-5.1); Alkaline Phosphatase 95 U/L (38-126); Anion Gap 9 mmol/L (4-12); Aspartate Amino Transferase 36 U/L (17-59); Bilirubin,Total 1.1 mg/dL (0.2-1.3); Blood Urea Nitrogen 19 mg/dL (9-20); Calcium 10.2 mg/dL (8.4-10.2); Carbon Dioxide 24 mmol/L (22-30); Chloride 105 mmol/L (98-107); Estimated CRCL calculation 82 ml/min; Estimated Glomerular Filt Rate > 60; Glucose 133 mg/dL (65-110); Potassium 3.8 mmol/L (3.4-5.0); Sodium 138 mmol/L (137-145)
--- NOTE | 2024-07-13 13:16 | ED_ITS ---
HPI - General Adult General Chief complaint: Abdominal Pain Stated complaint: ABD PAIN Time Seen by Provider: 07/13/24 12:48 History of Present Illness HPI narrative: 44-year-old male presents emergency department for evaluation for flank pain and left lower quadrant pain. Patient states the pain started while he was asleep. Patient describes the pain as being 8/10. Patient is clearly uncomfortable at time of evaluation. Patient denies any falls or injuries. Patient denies any pain with urination and denies any prior history of kidney stones. Related Data Home Medications ?Medication ?Instructions ?Recorded ?Confirmed ?Last Taken ?Type alprazolam 2 mg tablet 2 mg PO DAILY 01/25/20 11/06/20 03/27/20 History dextroamphetamine-amphetamine 7.5 1 tablet PO BID 01/25/20 11/06/20 Unknown History mg tablet Allergies Allergy/AdvReac Type Severity Reaction Status Date / Time Penicillins Allergy Severe Anaphylaxis Verified 07/13/24 12:07 codeine Allergy Intermediate Swelling Verified 07/13/24 12:07 Review of Systems 2 Review of Systems: All systems reviewed & are unremarkable except as noted in HPI and below PMFSH Past Medical History Medical History (Updated 07/13/24 @ 14:41 by Choco Hopkins MD) Depression with anxiety Bilateral elbow fractures Hard of hearing Left ear Chronic GERD Hyperlipidemia Polysubstance abuse With a history of heroin overdose. Alcoholic Surgical History Surgical History (Updated 08/03/22 @ 15:28 by Richard Banks) History of carpal tunnel release Left forearm H/O fasciotomy Left forearm History of knee surgery Family History Family History (System 08/03/22 @ 15:28 by Richard Banks) Mother Borderline personality disorder Father Acute myocardial infarction Hypertension Social History Social History (System 08/03/22 @ 15:28 by Richard Banks) Social History: History of IV drug abuse. Polysubstance abuse. Including heroin, methamphetamines, cocaine, narcotics, and fentanyl. He has a history of alcohol abuse. 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 Previous admission he was listed as a full code and his mother was listed as surrogate decision maker. The patient was listed to have 2 children a son and a daughter. Smoking status: Never smoker Alcohol intake: former Substance use: current Substance use type: heroin, amphetamines, opiates, painkillers, IV drugs and methamphetamine Gender identity (if verbalized by the patient): Male Spiritual care concerns: No Exam 2 Narrative: APPEARANCE: Uncomfortable appearing secondary to abdominal pain HEAD: normocephalic, atraumatic. EYES: PERRLA/EOMI, conjunctivae clear. NOSE: Normal no drainage EARS:TMS clear with good light reflex. THROAT: Pharynx clear, no exudate. NECK: Supple. No adenopathy, no masses. RESPIRATORY: Airway patent, respirations nonlabored. Clear to auscultation bilaterally, no rales, rhonchi, wheezing. CARDIOVASCULAR: Regular rate and rhythm without murmurs rubs or gallops. ABDOMINAL: Soft, nontender, nondistended, normal bowel sounds MUSCULOSKELETAL: Moves all extremities. Strength/ROM intact, No edema, No calf tenderness. NEURO: Alert. Cranial nerves II through XII intact. Good gait. Good coordination SKIN: Warm, dry. Normal Color Course Vital Signs Vital signs: Vital Signs Temperature 97.5 F L 07/13/24 12:06 Pulse Rate 83 07/13/24 12:06 Respiratory Rate 22 H 07/13/24 12:06 Blood Pressure 151/116 H 07/13/24 12:06 Pulse Oximetry 100 07/13/24 12:06 Oxygen Delivery Room Air 07/13/24 12:06 Temperature 97.5 F L 07/13/24 12:06 Pulse Rate 75 07/13/24 13:54 Respiratory Rate 14 07/13/24 13:54 Blood Pressure 158/96 H 07/13/24 13:54 Pulse Oximetry 100 07/13/24 13:54 Oxygen Delivery Room Air 07/13/24 12:06 Medical Decision Making [facility] Narrative Medical decision making narrative: 44-year-old male presenting to the emergency department for evaluation for lower abdominal pain. Patient is afebrile but does have a leukocytosis of 11.0 and hemoglobin of 15.9. No acute abnormalities a CMP with normal creatinine and kidney function. Obstructing 2-3 mm stone at the left ureterovesicular junction with mild left hydroureteronephrosis. Patient was ordered Toradol and Dilaudid for pain control. On re-evaluation patient states he does feel significantly improved patient is resting comfortably. Patient was updated on the diagnosis is a kidney stone and the treatment plan for home. Patient will be provided [place] Zofran and Flomax for pain control for home and patient will be encouraged close follow-up with Urology. All questions concerns were addressed. Vital Signs Vital Signs: Vital Signs Temperature 97.5 F L 07/13/24 12:06 Pulse Rate 83 07/13/24 12:06 Respiratory Rate 22 H 07/13/24 12:06 Blood Pressure 151/116 H 07/13/24 12:06 Pulse Oximetry 100 07/13/24 12:06 Oxygen Delivery Room Air 07/13/24 12:06 Temperature 97.5 F L 07/13/24 12:06 Pulse Rate 75 07/13/24 13:54 Respiratory Rate 14 07/13/24 13:54 Blood Pressure 158/96 H 07/13/24 13:54 Pulse Oximetry 100 07/13/24 13:54 Oxygen Delivery Room Air 07/13/24 12:06 Lab Data 07/13/24 12:52 07/13/24 12:52 Labs: Lab Results 07/13/24 07/13/24 Range/Units 12:52 13:17 WBC 11.0 H (4.5-10.0) K/mm3 RBC 5.36 (4.6-6.20) M/mm3 Hgb 15.9 (14.0-18.0) g/dL Hct 44.8 (42.0-52.0) % MCV 83.6 (80-100) fl MCH 29.7 (26-34) pg MCHC 35.5 (32-36) g/dl RDW 13.2 (11.5-14.5) % Plt Count 340 (150-375) k/mm3 MPV 9.6 (7.4-10.4) fl Immature Gran % (Auto) 0.3 (0-0.5) % Neut % (Auto) 74.2 H (45.5-73.1) % Lymph % (Auto) 18.0 L (18.3-44.2) % [place]anner % (Auto) 5.7 (2.6-8.5) % Eos % (Auto) 1.2 (0-4.4) % Baso % (Auto) 0.6 (0.2-1.2) % Lymph # (Auto) 1.97 (0.9-3.2) K/mm3 Banner # (Auto) 0.6 (0.1-0.6) K/mm3 Eos # (Auto) 0.1 (0-0.3) K/mm3 Baso # (Auto) 0.1 (0.0-0.1) K/mm3 Abs Immat Gran (auto) 0.03 (0.00-0.031) K/mm3 Absolute Neuts (auto) 8.2 H (1.3-6.7) K/mm3 Absolute Nucleated RBC 0.000 (0.0-0.012) K/mm3 Nucleated RBC % 0.0 (0.0-0.2) % Sodium 138 (137-145) mmol/L Potassium 3.8 (3.4-5.0) mmol/L Chloride 105 (98-107) mmol/L Carbon Dioxide 24 (22-30) mmol/L Anion Gap 9 (4-12) mmol/L BUN 19 (9-20) mg/dL Creatinine 1.00 (0.7-1.3) mg/dL Estim Creat Clear Calc 82 ml/min Estimated GFR > 60 (59 - ) Glucose 133 H (65-110) mg/dL Calcium 10.2 (8.4-10.2) mg/dL Total Bilirubin 1.1 (0.2-1.3) mg/dL AST 36 (17-59) U/L ALT 34 (6-50) U/L Alkaline Phosphatase 95 (38-126) U/L Total Protein 8.0 (6.3-8.2) g/dL Albumin 5.2 H (3.5-5.1) g/dL Urine Color Yellow (Yellow) Urine Appearance Turbid H (Clear) Urine pH >=9.0 H (5.0-9.0) Ur Specific [place] 1.020 (1.001-1.035) Urine Protein 1+ H (Negative) mg/dL Urine Glucose (UA) Negative (Negative) mg/dL Urine Ketones 2+ H (Negative) mg/dL Ur Blood (Man) 2+ H (Negative) Urine Nitrate Negative (Negative) Urine Bilirubin Negative (Negative) Urine Urobilinogen 0.2 (<2.0) mg/dL Leukocyte Esterase Rfl Negative (Negative) JON/UL Urine RBC 51-100 H (0-2) /hpf Urine WBC 0-5 (0-3) /hpf Ur Squamous Epith Cells None seen (Few) /hpf Urine Bacteria None seen /hpf Urine Casts 0-2 Discharge Plan Discharge Clinical Impression: Calculi, ureter Patient Disposition: Home, Self-Care Condition: Stable Instructions: Antibiotic Form, Kidney Stones (ED), How to Strain Your Urine (ED) Additional Instructions: Ibuprofen for pain control. [place] as needed for additional pain control. Zofran as needed for nausea control. Flomax as directed to help you pass the stone. Have close follow-up with Urology. Strain your urine as instructed. If you have any worsening symptoms then please call or return to the emergency department. Patient Language: Indonesian Prescriptions: New hydrocodone-acetaminophen 5-325 mg tablet 1 tablet PO Q12H PRN (Reason: pain) Qty: 14 0RF ondansetron 4 mg tablet,disintegrating 4 mg PO Q8H PRN (Reason: nausea and vomiting) Qty: 14 0RF tamsulosin [Flomax] 0.4 mg capsule 0.4 mg PO DAILY 14 Days Qty: 14 0RF No Action dextroamphetamine-amphetamine 7.5 mg tablet 1 tablet PO BID alprazolam 2 mg tablet 2 mg PO DAILY moxifloxacin 400 mg Tablet 400 mg PO QAM Qty: 6 0RF thiamine HCl (vitamin B1) [Vitamin B-1] 100 mg Tablet 100 mg PO QAM Qty: 30 1RF folic acid 1 mg Tablet 1 mg PO DAILY Qty: 30 1RF cyclobenzaprine 10 mg tablet 10 mg PO TID PRN (Reason: muscle spasm) Qty: 10 0RF ibuprofen 800 mg tablet 800 mg PO TID Qty: 10 0RF methocarbamol 750 mg tablet 750 mg PO TID Qty: 14 0RF Follow-up/Referrals: Gelacio Ramsey MD [Physician] - Bear Cruz MD [Primary Care Provider] -
[2024-07-13] MEDS: HYDROmorphone HCL INJ (*CRX) 1 MG/ML SYR IV PUSH (13:25)
[2024-07-13] MEDS: ONDANSETRON INJ 4 MG/2 ML VIAL IV PUSH (13:25)
[2024-07-13] MEDS: KETOROLAC 30 MG/ML VIAL (*BKC) IV PUSH (13:25)
[2024-07-13] MEDS: TAMSULOSIN HCL 0.4 MG CAPSULE PO (13:26)
[2024-07-13 13:29] VITALS: BP 165/105; PULSE 86; RESP 15; O2SAT 100
[2024-07-13 13:34] LABS: Add Urine Microscopic? YES; Appearance Urine Turbid (Clear); Bacteria Urine None Seen /hpf; Bilirubin Urine Negative (Negative); Blood Urine 2+ (Negative); Color Urine Yellow (Yellow); Glucose Urine UA Negative (Negative); Ketones Urine 2+ mg/dL (Negative); Leukocyte Esterase Ur Negative LEU/UL (Negative); Nitrate Urine Negative (Negative); Non Pathogenic Casts 0-2; Protein Urine 1+ mg/dL (Negative); RBC Urine 51-100 /hpf (0-2); Squamous Epithelial Cell Urine None Seen /hpf (Few); Urobilinogen Urine 0.2 mg/dL (<2.0); WBC Urine 0-5 /hpf (0-3); pH Urine >=9.0 (5.0-9.0)
--- NOTE | 2024-07-13 13:46 | PC.NURSE ---
Pt. oxygen dropped to 68% with good pleth. This RN rushed into room. Pt. sleeping. Pt. easily woken up and instructed to take deep breathes. Pt easily following commands, speech clear. Oxygen erin to 100% with good pleth without intervention. Pt. placed on 2L NC.
[2024-07-13 13:54] VITALS: BP 158/96; PULSE 75; RESP 14; O2SAT 100
[2024-07-13 15:18] VITALS: BP 145/72; PULSE 80; RESP 16; O2SAT 100
--- OUTSIDE RECORDS SUMMARY | 2024-07-20 15:36 | XMS_ITS | Encounter Summary ---
Author Organization [facility] Address [facility] [facility] [place] [address] [place] [address] Care Team Providers Care Director It Project Name Role Phone Baljeet Doran MD Primary Care Provider Encounter Details Date Type Department Care Team (Latest Contact Info) Description 11/04/2020 Travel Social History Tobacco Use Types Packs/Day Years Used Date Smoking Tobacco: Never Smokeless Tobacco: Never Alcohol Use Standard Drinks/Week Comments Yes 0 (1 standard drink = 0.6 oz pur e alcohol) daily 1/5 hard liquor PHQ-2 Answer Date Recorded PHQ-2 Score - If the patient scores above 3, please move on to questions 3-9 1 11/03/2020 Sex and Gender Information Value Date Recorded Sex Assigned at Not on file Legal Sex Male 12:41 AM CDT Gender Identity Not on file Sexual Orientation Not on file COVID-19 Exposure Response Date Recorded In the last month, have you been in contact with someone who was confirmed or suspected to have Coronavirus / COVID-19? No / Unsure 11/04/2020 11:44 AM CDT documented as of this encounter Plan of Treatment Not on file documented as of this encounter Visit Diagnoses Not on filedocumented in this encounter Care Teams Director It Project Relationship Specialty Start Date End Date Baljeet Doran MD [address] [facility] [address] [place], [place] [address] PCP - General 11/24/16 documented as of this encounter
--- OUTSIDE RECORDS SUMMARY | 2024-07-20 15:36 | XMS_ITS | Encounter Summary ---
Author Organization [facility] Address Count includes the [facility] [place] [address] [place] [address] Care Team Providers Care Oil Dispatcher Name Role Phone Baljeet Doran MD Primary Care Provider Encounter Details Date Type Department Care Team (Latest Contact Info) Description 11/16/2020 Scan HEALTH INFO [facility] Scanned, Documents Social History Tobacco Use Types Packs/Day Years [...] on filedocumented in this encounter Care Teams Oil Dispatcher Relationship Specialty Start Date End Date Baljeet Doran MD [address] [facility] [address] [place] [address] PCP - General 11/24/16 documented as of this encounter
--- OUTSIDE RECORDS SUMMARY | 2024-07-20 15:36 | XMS_ITS | Encounter Summary ---
Author Organization [facility] Address [facility] [place] [address] [place] [address] Care Team Providers Care Supervisor Gluing Name Role Phone Baljeet Doran MD Primary Care Provider Reason for Visit * Reason Comments Image (SCAN) Encounter Details Date Type Department Care Team (Latest Contact Info) Description 11/06/2020 Scan HEALTH INFO [facility] Scanned, Documents Image (SCAN) Social History Tobacco Use Types Packs/Day Years [...] on file documented as of this encounter Procedures Procedure Name Priority Date/Time Associated Diagnosis Comments IMAGE GENERIC 11/06/2020 IMAGE GENERIC 11/06/2020 IMAGE GENERIC 11/06/2020 documented in this encounter Results * IMAGE GENERIC (11/06/2020) Anatomical Region Laterality Modality Other 11/06/2020 Narrative 11/06/2020 Ordered by an unspecified provider. us Documents Scanned SCANNING Final Result * IMAGE GENERIC (11/06/2020) Anatomical Region Laterality Modality Other 11/06/2020 Narrative 11/06/2020 Ordered by an unspecified provider. us Documents Scanned SCANNING Final Result * IMAGE GENERIC (11/06/2020) Anatomical Region Laterality Modality Other 11/06/2020 Narrative 11/06/2020 Ordered by an unspecified provider. us Documents Scanned SCANNING Final Result documented in this encounter Visit Diagnoses Not on filedocumented in this encounter Care Teams Supervisor Gluing Relationship Specialty Start Date End Date Baljeet Doran MD [address] [place] [address] PCP - General 11/24/16 documented as of this encounter
--- OUTSIDE RECORDS SUMMARY | 2024-07-20 15:36 | XMS_ITS | Patient Health Summary ---
Author Organization [facility] Address [address] [place] [address] Care Team Providers Care Plow Shaker Name Role Phone Unavailable Primary Care Provider Unavailabl e Note from [facility],non-owned Affiliates and Associated Physician Practices is amultiple site organization consisting of ambulatory clinics and hospital sitesin [place], [place], [place] and [place]. This disclosure is being madepursuant to the Care Everywhere program and may not contain all information available regarding this patient. Last updated 18.[facility] Allergies No known active allergies Medications * Be aware that medications may not be up to date on this document. Alwaysverify current medications with the patient. * oxycodone CR 12hr (OXYCONTIN) 40 MG tablet Take 40 mg by mouth daily. * ondansetron (ZOFRAN) 4 MG tablet(Started 07/13/2009) Take 1 Tab by mouth every 4 hours as needed for Nausea/Vomiting. Social History Tobacco Use Types Packs/Day Years Used Date Smoking Tobacco: Never Alcohol Use Standard Drinks/Week Comments No 0 (1 standard drink = 0.6 oz pur e alcohol) Sex and Gender Information Value Date Recorded Sex Assigned at Not on file Gender Identity Not on file Sexual Orientation Not on file Last Filed Vital Signs Vital Sign Reading Time Taken Comments Blood Pressure 140/70 07/13/2009 5:46 PM [employer] Pulse 98 07/13/2009 5:46 PM [employer] Temperature 36.5 ??C (97.7 ??F) 07/13/2009 3:45 PM CS T Respiratory Rate 18 07/13/2009 3:45 PM [employer] Oxygen Saturation 100% 07/13/2009 5:46 PM [employer] Inhaled Oxygen Concentration - - Weight 88.5 kg (195 lb) 07/13/2009 3:45 PM [employer] Height 175.3 cm (5' 9 ) 07/13/2009 3:45 PM [employer] Body Mass Index 28.8 07/13/2009 3:45 PM [employer] Procedures * LIPASE BLOOD(Performed 07/13/2009) Performed for Drug Withdrawal ([facility]) * COMPREHENSIVE METABOLIC PANEL(Performed 07/13/2009) Performed for Drug Withdrawal ([facility]) * CBC W AUTO DIFFERENTIAL(Performed 07/13/2009) Performed for Drug Withdrawal ([facility]) * AMYLASE BLOOD(Performed 07/13/2009) Performed for Drug Withdrawal ([facility]) * URINALYSIS REFLEX MICROSCOPIC REFLEX CULTURE(Performed 07/13/2009) Performed for Drug Withdrawal ([facility]) * URINE DRUG SCREEN IMMUNOASSAY(Performed 07/13/2009) Performed for Drug Withdrawal ([facility]) Results * (ABNORMAL) CBC W AUTO DIFFERENTIAL (07/13/2009 4:30 PM [employer]) WBC 13.6(H) 4.0 - 11.0 K/CUMM [facility] RBC 5.41 4.10 - 5.70 M/CUMM [facility] Hemoglobin 16.0 12.6 - 17.4 gm/dL [facility] Hematocrit 45.5 37 - 52 % [facility] MCV 84.1 80 - 99 fL [facility] MCH 29.5 26 - 34 pg [facility] MCHC 35.1 32 - 36 gm/dL [facility] RDW 12.3 11.5 - 14.5 % [facility] Platelet Count 275 150 - 400 K/CUMM [facility] Granulocytes % 89.3(H) 43 - 70 % [facility] Lymphocytes % 6.5(L) 22 - 41 % [facility] Monocytes % 2.5 2 - 13 % [facility] Eosinophils % 0.2 0 - 6 % [facility] Basophils % 1.5 0 - 2 % [facility] Granulocytes Absolute 12.2(H) 1.7 - 7.7 [facility] Lymphocytes Absolute 0.9(L) 1.0 - 3.0 [facility] Monocytes Absolute 0.3 0.2 - 1.0 [facility] Eosinophils Absolute 0.0 0.0 - 0.4 [facility] Basophils Absolute 0.2(H) 0.0 - 0.1 [facility] Comment Slide scanned for immature granulocytes . [facility] BLOOD SPECIMEN / Unknown 07/13/2009 4:30 PM [employer] 07/13/2009 5:03 PM [employer] See Vinson MD LAB - HEMATOLOGY ORD ERABLES [facility] [address] [place] [address] * (ABNORMAL) COMPREHENSIVE METABOLIC PANEL (07/13/2009 4:30 PM [employer]) Glucose 118.(H) 75 - 110 mg/dL [facility] BUN 10. 9 - 21 mg/dL [facility] Creatinine .85 0.66 - 1.25 mg/dL [facility] BUN/Creatinine Ratio 11.6 [facility] Sodium 144. 137 - 145 mmol/L [facility] Potassium 3.9 3.6 - 5.0 mmol/L [facility] Chloride 104. 98 - 107 mmol/L [facility] CO2 26. 22 - 31 mmol/L [facility] Anion Gap 14. [facility] Calcium 10.2 8.4 - 11.5 mg/dL [facility] Alkaline Phosphatase 83. 38 - 126 U/L [facility] ALT 41. 7 - 56 U/L [facility] AST 23. 5 - 40 U/L [facility] Bilirubin Total .7 0.2 - 1.3 mg/dL [facility] Protein Total 8.7(H) 6.3 - 8.2 gm/dL [facility] Albumin 5.0 3.9 - 5.0 gm/dL [facility] eGFR by MDRD >60 SEE BELOW ml/min/1.7 3 m2 [facility] Comment: >60 Normal Chronic Disease <60 Renal Failure <15 BLOOD SPECIMEN / Unknown 07/13/2009 4:30 PM [employer] 07/13/2009 5:03 PM [employer] See Vinson MD LAB - CHEMISTRY TED RAMOS Performing Organization Address [facility] Co de Phone Number [facility] [address] [place] [phone] * LIPASE BLOOD (07/13/2009 4:30 PM [employer]) Lipase 55. 23 - 208 U/L [facility] BLOOD SPECIMEN / Unknown 07/13/2009 4:30 PM [employer] 07/13/2009 5:03 PM [employer] See Vinson MD LAB - CHEMISTRY TED RAMOS Performing Organization Address [facility] Co de Phone Number [facility] [address] [place] [address] * AMYLASE BLOOD (07/13/2009 4:30 PM [employer]) Amylase 36. 30 - 110 U/L [facility] BLOOD SPECIMEN / Unknown 07/13/2009 4:30 PM [employer] 07/13/2009 5:03 PM [employer] See Vinson MD LAB - CHEMISTRY TED RAMOS Performing Organization Address [facility] Co de Phone Number [facility] [address] [place] [address] * URINALYSIS ROUTINE W/REFLEX TO CULTURE (07/13/2009 4:15 PM [employer]) Source CleanCatch [facility] Color UA Yellow [facility] Character [facility]A Cloudy [facility] Specific [place] UA 1.025 1.002 - 1.030 [facility] pH UA 5.5 5.0 - 8.0 [facility] Protein UA 1+ NEG [facility] Blood UA Negative NEG [facility] Leukocyte UA Negative NEG [facility] Nitrite UA Negative NEG [facility] Glucose UA Negative NEG [facility] Ketone UA Trace NEG [facility] Bilirubin UA Negative NEG [facility] Urobilinogen UA 0.2 0.1 - 1.0 E.U./dl [facility] WBC UA 0-1 0 - 1 /HPF [facility] RBC UA 0-1 0 - 1 /HPF [facility] Epithelial Cell UA 0-1 0 - 1 /HPF [facility] Crystals UA 4+ Amorphous /LPF [facility] Culture Urine No culture to be done per protocol. [facility] URINE SPECIMEN OBTAINED BY CLEAN CATCH PROCEDURE / Unknown 07/13/2009 4:15 PM [employer] 07/13/2009 5:02 PM [employer] See Vinson MD LAB - URINALYSIS ORD ERABLES [facility] [address] [place] [address] * DRUG SCREEN TOX URINE PANEL (07/13/2009 4:15 PM [employer]) Amphetamines Screen Urine Not Detected 1000 ng/mL Cutoff ng/mL [facility] Barbiturates Screen Urine Not Detected 300 ng/mL Cutoff ng/mL [facility] Benzodiazepines Screen Urine Not Detected 300 ng/mL Cutoff ng/mL [facility] Cannabinoids Screen Urine Not Detected 20 ng/mL Cutoff ng/mL [facility] Cocaine Screen Urine Not Detected 300 ng/mL Cutoff ng/mL [facility] Methadone Screen Urine Not Detected 300 ng/mL Cutoff ng/mL [facility] Methaqualone Screen Urine Not Detected 300 ng/mL Cutoff ng/mL [facility] Opiate Screen Urine Presumptive Positive 300 ng/mL Cutoff ng/mL [facility] Phencyclidine Screen Urine Not Detected 25 ng/mL Cutoff ng/mL [facility] Propoxyphene Screen Urine Not Detected 300 ng/mL Cutoff ng/mL [facility] Oxycodone Screen Urine Not Detected 100 ng/mL Cutoff ng/mL [facility] Ecstasy Screen Urine Not Detected 500 ng/mL Cutoff ng/mL [facility] Creatinine Urine Tox 481.1 mg/dL [facility] GC/MS Screen Urine Negative [facility] Comment GC/MS Screen [facility] Comment: ? The GC/MS screen is a qualitative test for illicit drugs, ? narcotics, tranquilizers, sedative-hypnotics, antidepressants, ? cold medications, antihistamines, anticonvulsants, appetite ? suppressants, and date rape drugs, (Ecstasy, GHB-Gamma ? Hydroxybutyrate, Rolhypnol, Ketamine). Legal Disclaimer Urine This drug screen is designed for MEDICAL purposes only. It is not to be used for legal purposes including but not limited to workman's comp, police investigations, occupational issues, child custody. [facility] URINE / Unknown 07/13/2009 4 :15 PM [employer] 07/13/2009 5:03 PM [employer] See Vinson MD LAB - URINE CHEMISTR Y ORDERABLES [facility] [address] [place] [address]
--- OUTSIDE RECORDS SUMMARY | 2024-07-20 15:36 | XMS_ITS | Clinical Summary ---
Author Organization [facility] Address [facility] [place] [address] [place] [address] Care Team Providers Care Order Tracer Name Role Phone Baljeet Doran MD Primary Care Provider Allergies No known active allergies Medications naproxen 500 MG tabletIndication s:Sore throat Take 1 tablet (500 mg total) by mouth every 12 (twelve) hours as needed. Take one tab twice daily with food for 7 days. Then take only as needed. 60 tablet 1 12/31/2019 Active HYDROcodone-acet aminophen (NORCO) 5-325 MG tabletIndication s:Acute Pain < 7 Day Supply Take 1 tablet by mouth every 6 (six) hours as needed. 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 ([facility]) 01/28/2020 Furuncle of lower leg 11/22/2019 Bucket-handle tear of medial meniscus of right knee as current injury, subsequent encounter 11/22/2019 Chronic pain of right knee 10/25/2019 Knee effusion, right 10/25/2019 Epididymal cyst 04/26/2017 Obesity 04/26/2017 Overview (11/12/2018): Transitioned From: Overweight Hyperlipidemia 11/22/2016 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/2016 Resolved Problems Problem Noted Date Diagnosed Date Resolved Date Internal derangement of right knee 10/25/2019 12/05/2019 Family History Medical History Relation Comments Heart Disease Father Relation Status Comments Father Mother Alive Social History Tobacco Use Types Packs/Day Years Used Date Smoking Tobacco: Never Smokeless Tobacco: Never Tobacco Cessation:Counseling Given: No Alcohol Use Standard Drinks/Week Comments Yes 0 [...] Sign Reading Time Taken Comments Blood Pressure 133/88 11/04/2020 4:48 PM CDT Pulse 102 11/04/2020 4:48 PM CDT Temperature 36.3 ??C (97.4 ??F) 11/04/2020 11:45 AM C DT Respiratory Rate 18 11/04/2020 4:48 PM CDT Oxygen Saturation 97% 11/04/2020 4:48 PM CDT Inhaled Oxygen Concentration - - Weight 76.8 kg (169 lb 6.4 oz) 11/03/2020 9:46 A M CDT Height 177.8 cm (5' 10 ) 11/04/2020 11:45 AM CDT Body Mass Index 24.31 11/03/2020 9:46 AM CDT Plan of Treatment Health Maintenance Due Date Last Done Comments Colorectal Cancer Screening Colonoscopy (10 Years) 1978 Annual Physical 1981 Hepatitis C 02/15/1996 DTaP, Tdap and Td Vaccines ( 1 - Tdap) 1997 Hepatitis B Vaccines (1 of 3 - 19+ 3-dose series) 1997 COVID-19 Vaccine (2023-2 5 season) 2024 Influenza Adult (#1) 2024 Meningococcal Vaccine Aged Out No mouna tsephanie eligible based on patient's age to complete this topic Pneumococcal Vaccine: Pediat rics (0 to 5 Years) and At-Risk Patients (6 to 64 Years) Aged Out No longer eligible b ased on patient's age to complete this topic RSV Immunizations Under 20 Months Aged Out No longer eligible based on patient's age to complete this topic Insurance [employer] Care Teams Order Tracer Relationship Specialty Start Date End Date Baljeet Doran MD [address] [facility] [address] [place] [address] PCP - General 11/24/16
--- OUTSIDE RECORDS SUMMARY | 2024-07-20 15:36 | XMS_ITS | Encounter Summary ---
Author Organization [facility] Address [facility] [place] [address] [place] [address] Care Team Providers Care Educational Institution President Name Role Phone Baljeet Doran MD Primary Care Provider Reason for Referral * Imaging (Emergency) - Closed Specialty Diagnoses / Procedures Referred By Keny kunz Referred To Contact RADIOLOGY Procedures CTA CHEST Una Chavez FNP [address] [address] Phone: tel: fax: Referral ID Status Reason Start Date Expiration Date Visits Re quested Visits Authorized [id number] Closed 11/04/2020 12/04/2021 1 1 Reason for Visit * Reason Comments Shortness Of Breath Encounter Details Date Type Department Care Team (Late st Contact Info) Description 11/04/2020 12:05 PM CDT - 11/04/2020 5:01 PM CDT Emergency [facility] [place] [address] Una Chavez FNP [address] [id number] Shortness Of Breath Discharge Disposition: Home or Self Care (Routine Discharge) Social History Tobacco Use Types Packs/Day Years [...] AM CDT documented as of this encounter Last Filed Vital Signs Vital Sign Reading Time Taken Comments Blood Pressure 133/88 11/04/2020 4:48 PM CDT Pulse 102 11/04/2020 4:48 PM CDT Temperature 36.3 ??C (97.4 ??F) 11/04/2020 11:45 AM C DT Respiratory Rate 18 11/04/2020 4:48 PM CDT Oxygen Saturation 97% 11/04/2020 4:48 PM CDT Inhaled Oxygen Concentration - - Weight - - Height 177.8 cm (5' 10 ) 11/04/2020 11:45 AM CDT Body Mass Index - - documented in this encounter Discharge Instructions * Discharge Instructions* JOHN Howell - 11/04/2020 4:53 PM CDT Please be sure to take it easy on yourself while you are bones are healing and after this acute injury. Today your scan was negative for any kind of acute lung injury or blood clot to your lung. You may be feeling poorly due to the pain medicine or due to pain when you change position. Please follow-up with orthopedist for further recommendation. Thank you for giving us the opportunity to care for you today. If at any point you are becoming more ill, please call your doctor, or go to the ER. You are always welcome back. If you have any questions about this visit, concerns about your symptoms, questions about your medications or other concerns, please give us a call. Our practice is committed to providing you the very best in healthcare. We want to hear from you! Please fill out the survey you get from us. Your feedback is anonymous and helps us improve the patient experience for you and others in the community we serve. - JOHN Cartwright- - Emergency Medicine Provider * Attachments The following attachments cannot be sent through Care Everywhere. * Shortness of Breath (Dyspnea) (Ugandan) documented in this encounter Medications at Time of Discharge HYDROcodone-acetam inophen (NORCO) 5-325 MG tabletIndications: Acute Pain < 7 Day Supply Take 1 tablet by mouth every 6 (six) hours as needed. Indications: Acute Pain < 7 Day Supply 16 tablet 10/31/2020 naproxen 500 MG tabletIndications: Sore throat Take 1 tablet (500 mg total) by mouth every 12 (twelve) hours as needed. Take one tab twice daily with food for 7 days. Then take only as needed. 60 tablet 1 12/31/2019 docusate sodium 100 MG capsuleIndications :Therapeutic opioid induced constipation Take 1 capsule (100 mg total) by mouth 2 (two) times daily for 21 days. 42 capsule 11/03/2020 1 ibuprofen 600 MG tablet Take 1 tablet (600 mg total) by mouth every 6 (six) hours as needed. 30 tablet 10/31/2020 1 documented as of this encounter ED Notes * JOHN Howell - 11/04/2020 1:34 PM CDT Chief Complaint Chief Complaint Patient presents with ??? Shortness Of Breath History of Present Illness 40-year-old male presents for evaluation of dizziness and shortness of breath. He notes he had a clavicle fracture and was evaluated on the , he saw his PCP yesterday, he has been taking pain medication as prescribed. He denies chest pain. He states the first orthopedist he called advised that this was beyond the scope of practice that they could offer and referred to a different orthopedist who patient has appointment with today. Medical History ALLERGIES: No Known Allergies MEDICATIONS: Prior to Admission medications Medication Sig Start Date End Date Taking? Authorizing Provider docusate sodium 100 MG capsule Take 1 capsule (100 mg total) by mouth 2 (two) times daily for 21 days. 11/03/20 11/24/20 Baljeet Doran MD HYDROcodone-acetaminophen (NORCO) 5-325 MG tablet Take 1 tablet by mouth every 6 (six) hours as needed. Indications: Acute Pain < 7 Day Supply 10/31/20 Stella Ríos NP ibuprofen 600 MG tablet Take 1 tablet (600 mg total) by mouth every 6 (six) hours as needed. 10/31/20 11/10/20 Stella Ríos NP naproxen 500 MG tablet Take 1 tablet (500 mg total) by mouth every 12 (twelve) hours as needed. Take one tab twice daily with food for 7 days. Then take only as needed. 12/31/19 Delonte Agudelo MD PAST MEDICAL HISTORY: Past Medical History: Diagnosis Date ??? ADD (attention deficit disorder) ??? Alcoholism (CMS/HCC) ??? Anxiety ??? Compartment syndrome (CMS/HCC) PAST SURGICAL HISTORY: Past Surgical History: Procedure Laterality Date ??? AMPUTATION FINGER Left fingertip amp, reattached ??? CARPAL TUNNEL RELEASE Right right and left sides ??? DENTAL PROCEDURE wisdom teeth ??? FASCIOTOMY,ILIOTIBIAL,OPEN Left ??? KNEE SCOPE,MED OR LAT MENIS REPAIR Right 12/2019 ??? KNEE SURGERY FAMILY HISTORY: Family History Problem Relation Name Age of Onset ??? Heart Disease Father SOCIAL HISTORY: Social History Tobacco Use ??? Smoking status: Never Smoker ??? Smokeless tobacco: Never Used Substance Use Topics ??? Alcohol use: Yes Comment: daily 1/5 hard liquor ??? Drug use: Never Review of Systems Review of Systems Constitutional: Negative for chills and fever. HENT: Negative for congestion, sinus pain and sore throat. Eyes: Negative for pain and redness. Respiratory: Positive for shortness of breath. Negative for cough, chest tightness and wheezing. Cardiovascular: Negative for chest pain. Gastrointestinal: Negative for abdominal pain, constipation, diarrhea, nausea and vomiting. Musculoskeletal: Negative for arthralgias and joint swelling. Skin: Negative for rash and wound. Neurological: Negative for headaches. Psychiatric/Behavioral: Negative for agitation. The patient is not nervous/anxious. Physical Exam Filed Vitals: 11/04/20 1145 11/04/20 1407 11/04/20 1648 BP: 106/86 (!) 107/92 133/88 Pulse: 121 102 102 Resp: 18 18 18 Temp: 97.4 ??F (36.3 ??C) TempSrc: Temporal SpO2: 99% 100% 97% Height: 5' 10 (1.778 m) Physical Exam Vitals signs and nursing note reviewed. Constitutional: Appearance: He is well-developed. HENT: Head: Normocephalic. Eyes: Pupils: Pupils are equal, round, and reactive to light. Cardiovascular: Rate and Rhythm: Normal rate and regular rhythm. Pulmonary: Effort: Pulmonary effort is normal. Breath sounds: Normal breath sounds. No wheezing or rhonchi. Musculoskeletal: Normal range of motion. Comments: Significant and extensive ecchymosis from right clavicle that extends down majority of anterior chest wall. Consistent with report of particular fracture Skin: General: Skin is warm and dry. Neurological: Mental Status: He is alert and oriented to person, place, and time. Diagnostic Studies / Procedures ELECTROCARDIOGRAMS: Results for orders placed or performed during the hospital encounter of 11/04/20 [address] 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1980 Requested By: UNA CHAVEZ Order Number: [id number] Reading MD: Cristobal Crump Measurements Intervals [place] Rate: 128 P: 80 AL: 169 QRS: 72 QRSD: 98 T: 71 QT: 282 QTc: 413 Interpretive Statements SINUS TACHYCARDIA INCOMPLETE RIGHT BUNDLE BRANCH BLOCK ABNORMAL RHYTHM ECG Compared to ECG 11/28/2012 15:26:22 Incomplete right bundle-branch block now present Other ischemic changes, not STEMI Una Chavez NP CRITICAL ALERT ISSUED ON 11-04-2020 12:30:00 ECG 12 lead Narrative [place] Test Date: 2020-11-04 Pat Name: GIOVANA LEBRON Department: Room: 404A Gender: Male Ferris Wheel Attendant: OSCAR : 1980 Requested By: UNA CHAVEZ Order Number: [id number] Reading MD: Cristobal Crump Measurements Intervals [place] Rate: 104 P: 32 AL: 161 QRS: 2 QRSD: 98 T: -48 QT: 313 QTc: 412 Interpretive Statements SINUS TACHYCARDIA WITH OCCASIONAL VENTRICULAR PREMATURE COMPLEXES LEFT ATRIAL ENLARGEMENT POSSIBLE RIGHT VENTRICULAR CONDUCTION DELAY MODERATE ST DEPRESSION Compared to ECG 11/04/2020 12:27:31 Ventricular premature complex(es) now present Atrial abnormality now present ST (T wave) deviation now present Incomplete right bundle-branch block no longer present Other ischemic changes, not STEMI Una Chavez NP CRITICAL ALERT ISSUED ON 11-04-2020 16:55:37 LABORATORY STUDIES: Results for orders placed or performed during the hospital encounter of 11/04/20 CBC W/DIFF AUTOMATED Result Value Ref Range WBC 10.5 4.5 - 11.0 x10'3/uL RBC 5.71 4.70 - 6.10 x10'6/uL HGB 16.3 14.0 - 18.0 G/DL HCT 48.6 43.0 - 54.0 % MCV 85.1 80.0 - 94.0 FL MCH 28.5 27.0 - 31.0 PG MCHC 33.5 32.0 - 36.0 G/DL RDW 12.4 11.5 - 14.5 % PLT 476 (H) 130 - 400 x10'3/uL MPV 8.8 (L) 9.3 - 12.2 FL DIFFERENTIAL TYPE AUTOMATED DIFFERENTIAL NEUTROPHILS 81.1 % LYMPHOCYTES 12.6 % MONOCYTES 5.1 % EOSINOPHILS 0.2 % BASOPHILS 0.6 % IMMATURE GRANS 0.4 % ABS. NEUTROPHILS TOTAL 8.55 (H) 1.80 - 7.70 x10'3/uL ABS. LYMPHOCYTES 1.33 1.00 - 4.80 x10'3/uL ABS. MONOCYTES 0.54 0.30 - 0.82 x10'3/uL ABS. EOSINOPHILS 0.02 (L) 0.04 - 0.54 x10'3/uL ABS. BASOPHILS 0.06 0.01 - 0.08 x10'3/uL ABS. IMMATURE GRANULOCYTES 0.04 0.00 - 0.49 x10'3/uL D-DIMER, QUANTITATIVE Result Value Ref Range D-DIMER 1,753 (HH) 0 - 500 ng[FEU]/mL COMPREHENSIVE METABOLIC PANEL Result Value Ref Range GLUCOSE 114 (H) 70 - 99 MG/DL BUN 17 7 - 18 MG/DL CREATININE S/P/B 1.02 0.7 - 1.3 MG/DL SODIUM 135 (L) 136 - 145 MMOL/L POTASSIUM 4.0 3.5 - 5.1 MMOL/L CHLORIDE S/P/B 98 (L) 100 - 108 MMOL/L CO2 32.1 (H) 21 - 32 MMOL/L CALCIUM 9.8 8.5 - 10.1 MG/DL BILIRUBIN TOTAL S/P/B 0.9 0.2 - 1.2 MG/DL TOTAL PROTEIN S/P/B 8.8 (H) 6.4 - 8.2 G/DL ALBUMIN S/P/B 4.5 3.4 - 5.0 G/DL AST 19 15 - 37 U/L ALT 35 16 - 60 U/L ALKALINE PHOSPHATASE S/P/B 111 50 - 136 U/L ANION GAP 4.9 (L) 5 - 15 MMOL/L BUN CREATININE RATIO 16.7 6 - 26 A/G RATIO 1.0 1.0 - 2.0 RATIO eGFR Non-Afr. Amer. >90 >90 ML/MIN/1.73 M2 eGFR Afr. Amer. >90 >90 ML/MIN/1.73 M2 TROPONIN, QUANT Result Value Ref Range TROPONIN I <0.015 <0.045 ng/mL. IMAGING STUDIES: CTA CHEST Final Result by User, [id number] (11/04 3309) EXAMINATION: CTA CHEST WITH CONTRAST, PULMONARY EMBOLISM CLINICAL HISTORY: SHORTNESS OF BREATH, ELEVATED DDIMER, CLAVIVLE FRACTURE 10/31; THORACIC AORTIC ANEURYSM (TAA) SUSPECTED; PE SUSPECTED, HIGH PROB. Ambulatory to triage with c/o dizziness and SOB since Monday. SOB with exertion. Was seen and treated on Monday for right clavicle fx post fall down the stairs Monday night. COMPARISON: CT chest abdomen pelvis on 01/12/2013. TECHNIQUE: Computed tomography angiography was performed of the chest after administration of intravenous contrast, 80 mL Isovue-370, according to pulmonary embolism protocol. Maximum intensity projection images were obtained. A dose lowering technique was used for this procedure, which may include, but is not limited to, dose reduction technique, automated exposure control, the use of iterative reconstruction, and ALARA (As Low As Reasonably Achievable) / Image Gently techniques. FINDINGS: Airways intact. No pneumothorax. No pleural effusion. No suspicious lung mass or consolidation. Normal heart size. No significant pericardial effusion. Thoracic aorta is normal caliber. No pathologic filling defects in the pulmonary artery. No mediastinal hematoma. No pneumomediastinum. Upper abdomen is unremarkable. Comminuted right clavicle fracture. Subcutaneous fat stranding in the right anterior chest wall. Thickening of the right pectoralis major muscle. IMPRESSION: 1. No acute pulmonary embolism. 2. Comminuted right clavicle fracture. Associated bruising in the subcutaneous tissue of right anterior chest wall as well as thickening of right pectoralis major muscle. Referred By: UNA CHAVEZ Interpreted By: Werner Goff MD, 11/04/2020 3:46 PM XR CHEST PORTABLE Final Result by User, [id number] (11/04 6752) PROCEDURE: XR CHEST PORTABLE. 11/04/2020 12:30 PM. TECHNIQUE: A single view of the chest (AP or PA) was performed. HISTORY: Shortness of breath. COMPARISON: PA and lateral chest radiograph, 01/14/2013. FINDINGS: Support Devices: None. Cardiac Silhouette/Mediastinum/Kaley: The cardiac, mediastinal, and hilar contours are within normal limits for patient's age. Lungs/Pleural Spaces: The lungs and pleural spaces are clear Chest Wall/Diaphragm/Upper Abdomen: The thoracic musculoskeletal structures and the upper abdomen are unchanged in appearance. IMPRESSION: No acute cardiopulmonary process is identified. Referred By: UNA CHAVEZ Interpreted By: Ashley Hernandes MD, 11/04/2020 2:03 PM MEDICATIONS: Medications oxyCODONE-acetaminophen (PERCOCET) 5-325 MG tablet 1 tablet (1 tablet Oral Given 11/04/20 1240) iopamidol (ISOVUE-370) 76 % injection 80 mL (80 mLs Intravenous Given 11/04/20 6639) Discharge Medication List as of 11/04/2020 4:56 PM ED Course / Medical Decision Making MDM Number of Diagnoses or Management Options Shortness of breath: Diagnosis management comments: Denies wanting covid swab- symptoms not consitent with covid, no covid- associated lung abnormalities visualized on CT. Chest CT negative for PE, discussed with patient follow-up with PCP and orthopedist. Nontoxic exit exam, 97% on room air this is normal. Amount and/or Complexity of Data Reviewed Decide to obtain previous medical records or to obtain history from someone other than the patient:yes Clinical Impression Shortness of breath (Primary) Disposition: Discharge NOTE: This patient was cared for in the middle of an unusual surge in emergency department census directly related to the SARS-2/COVID-19 pandemic. As a result, some of the time indices noted may be inaccurate. I dictated portions of this note using English TV speech recognition software. Occasional wrong word or sound-alike substitutions may have occurred due to the inherent limitations of voice recognition software. JOHN HOWELL 11/07/2020 JOHN Howell 11/07/20 1054 Cosigned by Vinod Kirk MD at 11/12/2020 7:12 AM CDT * Eduardo Rosenbaum RN - 11/04/2020 12:55 PM CDT Received call from triage registration, they report pt is wanting a work note and discharge paperwork. Advised her pt is waiting on results prior to this * Demetrice Wayne RN - 11/04/2020 11:47 AM CDT Ambulatory to triage with c/o dizziness and SOB since Monday. SOB with exertion. Was seen and treated on Monday for right clavicle fx post fall down the stairs Monday night. documented in this encounter Plan of Treatment Not on file documented as of this encounter Procedures Procedure Name Priority Date/Time Associated Diagnosis Comments ECG 12-LEAD Routine 11/04/2020 4:45 PM CDT CTA CHEST STAT 11/04/2020 3:39 PM CDT XR CHEST PORTABLE STAT 11/04/2020 2:0 2 PM CDT COMPREHENSIVE METABOLIC PANEL STAT 11/04/2020 12:43 PM CDT D-DIMER, QUANTITATIVE STAT 11/04/2020 12:43 PM CDT CBC W/DIFF AUTOMATED STAT 11/04/2020 12:43 PM CDT TROPONIN, QUANT STAT 11/04/2020 12:43 PM CDT ECG 12-LEAD Routine 11/04/2020 12:27 PM CDT documented in this encounter Results * ECG 12 lead (11/04/2020 4:45 PM CDT) 11/04/2020 4:45 PM CDT Narrative [facility] - 11/05/2020 12:29 AM CDT ?[place] [facility] ? [address] [place] ? Test Date: ?2020-11-04 Pat Name: ? GIOVANA LEBRON ? Department: ? Room: ? 404A Gender: ? Male ? 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 LP : ?1980 ? Requested By: UNA CHAVEZ Order Number: [id number] ? Reading MD: ?? Cristobal Crump ? Measurements Intervals ?[place] ? Rate: ? 104 ?P: ?32 AL: ? 161 ?QRS: ?2 QRSD: ? 98 ? T: ?-48 QT: ? 313 ? QTc: ?412 ? Interpretive Statements SINUS TACHYCARDIA WITH OCCASIONAL VENTRICULAR PREMATURE COMPLEXES LEFT ATRIAL ENLARGEMENT POSSIBLE RIGHT VENTRICULAR CONDUCTION DELAY MODERATE ST DEPRESSION Compared to ECG 11/04/2020 12:27:31 Ventricular premature complex(es) now present Atrial abnormality now present ST (T wave) deviation now present Incomplete right bundle-branch block no longer present Other ischemic changes, not STEMI Una Chavez NP CRITICAL ALERT ISSUED ON 11-04-2020 16:55:37 Procedure Note Cristobal Crump MD - 11/05/[address] [facility] [facility] [address] Test Date: 2020-11-04 Pat Name: GIOVANA LEBRON [facility] Ferris Wheel Attendant: OSCAR : 1980 Requested By: UNA CHAVEZ Order Number: [id number] Reading MD: Cristobal Crump Measurements Intervals [place] Rate: 104 P: 32 AL: 161 QRS: 2 QRSD: 98 T: -48 QT: 313 QTc: 412 Interpretive Statements SINUS TACHYCARDIA WITH OCCASIONAL VENTRICULAR PREMATURE COMPLEXES LEFT ATRIAL ENLARGEMENT POSSIBLE RIGHT VENTRICULAR CONDUCTION DELAY MODERATE ST DEPRESSION Compared to ECG 11/04/2020 12:27:31 Ventricular premature complex(es) now present Atrial abnormality now present ST (T wave) deviation now present Incomplete right bundle-branch block no longer present Other ischemic changes, not STEMI Una Chavez NP CRITICAL ALERT ISSUED ON 11-04-2020 16:55:37 us Una Chavez ALARM SERVICE TECHNICIAN ECG ORDERABLES Final Resul t [facility] * CTA CHEST (11/04/2020 3:39 PM CDT) Anatomical Region Laterality Modality Chest Computed Tomogra phy 11/04/2020 3:46 PM CDT Impressions 11/04/2020 3:54 PM CDT IMPRESSION: 1. No acute pulmonary embolism. 2. Comminuted right clavicle fracture. Associated bruising in the subcutaneous tissue of right anterior chest wall as well as thickening of right pectoralis major muscle. Referred By: UNA CHAVEZ Interpreted By: Werner Goff MD, 11/04/2020 3:46 PM Narrative 11/04/2020 3:54 PM CDT EXAMINATION: CTA CHEST WITH CONTRAST, PULMONARY EMBOLISM CLINICAL HISTORY: SHORTNESS OF BREATH, ELEVATED DDIMER, CLAVIVLE FRACTURE 10/31; THORACIC AORTIC ANEURYSM (TAA) SUSPECTED; PE SUSPECTED, HIGH PROB. Ambulatory to triage with c/o dizziness and SOB since Monday. SOB with exertion. Was seen and treated on Monday for right clavicle fx post fall down the stairs Monday night. COMPARISON: CT chest abdomen pelvis on 01/12/2013. TECHNIQUE: Computed tomography angiography was performed of the chest after administration of intravenous contrast, 80 mL Isovue-370, according to pulmonary embolism protocol. Maximum intensity projection images were obtained. A dose lowering technique was used for this procedure, which may include, but is not limited to, dose reduction technique, automated exposure control, the use of iterative reconstruction, and ALARA (As Low As Reasonably Achievable) / Image Gently techniques. FINDINGS: Airways intact. No pneumothorax. No pleural effusion. No suspicious lung mass or consolidation. Normal heart size. No significant pericardial effusion. Thoracic aorta is normal caliber. No pathologic filling defects in the pulmonary artery. No mediastinal hematoma. No pneumomediastinum. Upper abdomen is unremarkable. Comminuted right clavicle fracture. Subcutaneous fat stranding in the right anterior chest wall. Thickening of the right pectoralis major muscle. Procedure Note Werner Goff MD - 11/04/2020 EXAMINATION: CTA CHEST WITH CONTRAST, PULMONARY EMBOLISM CLINICAL HISTORY: SHORTNESS OF BREATH, ELEVATED DDIMER, CLAVIVLEFRACTURE 10/31; THORACIC AORTIC ANEURYSM (TAA) SUSPECTED; PE SUSPECTED, HIGH PROB. Ambulatory to triage with c/o dizziness and SOB since Monday. SOB with exertion. Was seen and treated on Monday for right clavicle fx postfall down the stairs Monday night. COMPARISON: CT chest abdomen pelvis on 01/12/2013. TECHNIQUE: Computed tomography angiography was performed of the chestafter administration of intravenous contrast, 80 mL Isovue-370, according to pulmonary embolism protocol. Maximum intensity projection images were obtained. A dose lowering technique was used for this procedure, whichmay include, but is not limited to, dose reduction technique, automated exposure control, the use of iterative reconstruction, and ALARA (As LowAs Reasonably Achievable) / Image Gently techniques. FINDINGS: Airways intact. No pneumothorax. No pleural effusion. No suspicious lung mass or consolidation. Normal heart size. No significant pericardial effusion. Thoracic aorta is normal caliber. No pathologic fillingdefects in the pulmonary artery. No mediastinal hematoma. No pneumomediastinum. Upper abdomen is unremarkable. Comminuted right clavicle fracture. Subcutaneous fat stranding in the right anterior chest wall. Thickeningof the right pectoralis major muscle. IMPRESSION: 1. No acute pulmonary embolism. 2. Comminuted right clavicle fracture. Associated bruising in the subcutaneous tissue of right anterior chest wall as well as thickeningof right pectoralis major muscle. Referred By: UNA CHAVEZ Interpreted By: Werner Goff MD, 11/04/2020 3:46 PM Una Chavez ALARM SERVICE TECHNICIAN CT Final Resul t * XR CHEST PORTABLE (11/04/2020 2:02 PM CDT) Anatomical Region Laterality Modality Chest Radiographic Ree ging 11/04/2020 2:03 PM CDT Impressions 11/04/2020 2:04 PM CDT IMPRESSION: No acute cardiopulmonary process is identified. Referred By: UNA CHAVEZ Interpreted By: Ashley Hernandes MD, 11/04/2020 2:03 PM Narrative 11/04/2020 2:04 PM CDT PROCEDURE: ??XR CHEST PORTABLE. ??11/04/2020 12:30 PM. TECHNIQUE: ??A single view of the chest (AP or PA) was performed. HISTORY: ??Shortness of breath. COMPARISON: ??PA and lateral chest radiograph, 01/14/2013. FINDINGS: ?? Support Devices: ??None. Cardiac Silhouette/Mediastinum/Kaley: ??The cardiac, mediastinal, and hilar contours are within normal limits for patient's age. Lungs/Pleural Spaces: ??The lungs and pleural spaces are clear Chest Wall/Diaphragm/Upper Abdomen: ??The thoracic musculoskeletal structures and the upper abdomen are unchanged in appearance. Procedure Note Ashley Hernandes MD - 11/04/2020 PROCEDURE: XR CHEST PORTABLE. 11/04/2020 12:30 PM. TECHNIQUE: A single view of the chest (AP or PA) was performed. HISTORY: Shortness of breath. COMPARISON: PA and lateral chest radiograph, 01/14/2013. FINDINGS: Support Devices: None. Cardiac Silhouette/Mediastinum/Kaley: The cardiac, mediastinal, andhilar contours are within normal limits for patient's age. Lungs/Pleural Spaces: The lungs and pleural spaces are clear Chest Wall/Diaphragm/Upper Abdomen: The thoracic musculoskeletal structures and the upper abdomen are unchanged in appearance. IMPRESSION: No acute cardiopulmonary process is identified. Referred By: UNA CHAVEZ Interpreted By: Ashley Hernandes MD, 11/04/2020 2:03 PM Una Chavez [facility] Final Resul t * TROPONIN, QUANT (11/04/2020 12:43 PM CDT) TROPONIN I <0.015 <0.045 ng/mL. 11/04/2020 1:24 PM CDT [facility] Comment: HIGH DOSES OF BIOTIN MAY INTERFERE WITH THIS TEST RESULT. CORRELATION TO CLINICAL HISTORY AND PRESENTATION RECOMMENDED. 11/04/2020 12:4 3 PM CDT Una Chavez [facility] Final Resul t [facility] [address] [place] [address], [place] [phone] * (ABNORMAL) COMPREHENSIVE METABOLIC PANEL (11/04/2020 12:43 PM CDT) [facility] GLUCOSE 114(H) 70 - 99 MG/DL 11/04/2020 1:24 PM CDT [facility] BUN 17 7 - 18 MG/DL 11/04/2020 1:24 PM CDT [facility] CREATININE S/P/B 1.02 0.7 - 1.3 MG/DL 11/04/2020 1:24 PM CDT [facility] SODIUM S/P/B 135(L) 136 - 145 MMOL/L 11/04/2020 1:24 PM CDT [facility] POTASSIUM S/P/B 4.0 3.5 - 5.1 MMOL/L 11/04/2020 1:24 PM CDT [facility] CHLORIDE S/P/B 98(L) 100 - 108 MMOL/L 11/04/2020 1:24 PM CDT [facility] CO2 32.1(H) 21 - 32 MMOL/L 11/04/2020 1:24 PM CDT [facility] CALCIUM S/P/B 9.8 8.5 - 10.1 MG/DL 11/04/2020 1:24 PM CDT [facility] BILIRUBIN TOTAL S/P/B 0.9 0.2 - 1.2 MG/DL 11/04/2020 1:24 PM CDT [facility] Comment: THIS ASSAY IS NOT RECOMMENDED FOR PATIENTS UNDERGOING TREATMENT WITH ELTROMBOPAG DUE TO THE POTENTIAL FOR FALSELY ELEVATED RESULTS. TOTAL PROTEIN S/P/B 8.8(H) 6.4 - 8.2 G/DL 11/04/2020 1:24 PM CDT [facility] ALBUMIN S/P/B 4.5 3.4 - 5.0 G/DL 11/04/2020 1:24 PM CDT [facility] AST 19 15 - 37 U/L 11/04/2020 1:24 PM CDT [facility] ALT 35 16 - 60 U/L 11/04/2020 1:24 PM CDT [facility] ALKALINE PHOSPHATASE S/P/B 111 50 - 136 U/L 11/04/2020 1:24 PM CDT [facility] ANION GAP 4.9(L) 5 - 15 MMOL/L 11/04/2020 1:24 PM CDT [facility] BUN CREATININE RATIO 16.7 6 - 26 11/04/2020 1:24 PM CDT [facility] A/G RATIO 1.0 1.0 - 2.0 RATIO 11/04/2020 1:24 PM CDT [facility] EGFR NON-AFR. AMER. >90 >90 ML/MIN/1.7 3 M2 11/04/2020 1:24 PM CDT [facility] EGFR AFR. AMER. >90 >90 ML/MIN/1.7 3 M2 11/04/2020 1:24 PM CDT [facility] Comment: NOTE: eGFR is not calculated for patients <18 years of age. This is an estimated GFR (CKD EPI) and should not be used for calculating drug doses. 11/04/2020 12:4 3 PM CDT [facility] Final Resul t [facility] [address] [place] [address], * (ABNORMAL) D-DIMER, QUANTITATIVE (11/04/2020 12:43 PM CDT) [facility] D-DIMER 1,753(HH) 0 - 500 ng{FEU}/mL 11/04/2020 1:31 PM CDT [facility] Comment: D-Dimer values less than or equal to 500 ng/mL FEU have a negative predictive value of >95% for exclusion of deep vein thrombosis and pulmonary embolism. In patients over 50 (who tend to have higher normal baseline D-Dimer values), recent studies suggest age-adjusted D-Dimer cutoff values (calculated as: age [years] x 10 ng/mL) result in equivalent outcomes and no additional false negative findings. Successful Call: DDIMR called 11/04/2020 01:31 PM to EMERGENCY ROOM ([id number]/MARCELLUS DANIELS) by [id number]. 11/04/2020 12:4 3 PM CDT Una Chavez ALARM SERVICE TECHNICIAN LABORATORY Final Resul t [facility] [address] [place] [id number], * (ABNORMAL) CBC W/DIFF AUTOMATED (11/04/2020 12:43 PM CDT) [facility] WBC 10.5 4.5 - 11.0 x10'3/uL 11/04/2020 12:59 PM CDT [facility] RBC 5.71 4.70 - 6.10 x10'6/uL 11/04/2020 12:59 PM CDT [facility] HGB 16.3 14.0 - 18.0 G/DL 11/04/2020 12:59 PM CDT [facility] HCT 48.6 43.0 - 54.0 % 11/04/2020 12:59 PM CDT [facility] MCV 85.1 80.0 - 94.0 FL 11/04/2020 12:59 PM CDT [facility] MCH 28.5 27.0 - 31.0 PG 11/04/2020 12:59 PM CDT [facility] MCHC 33.5 32.0 - 36.0 G/DL 11/04/2020 12:59 PM CDT [facility] RDW 12.4 11.5 - 14.5 % 11/04/2020 12:59 PM CDT [facility] PLT 476(H) 130 - 400 x10'3/uL 11/04/2020 12:59 PM CDT [facility] MPV 8.8(L) 9.3 - 12.2 FL 11/04/2020 12:59 PM CDT [facility] DIFFERENTIAL TYPE AUTOMATED DIFFERENTIAL 11/04/2020 12:59 PM CDT [facility] NEUTROPHILS % 81.1 % 11/04/2020 12:59 PM CDT [facility] LYMPHOCYTES % 12.6 % 11/04/2020 12:59 PM CDT [facility] MONOCYTES % 5.1 % 11/04/2020 12:59 PM CDT [facility] EOSINOPHILS 0.2 % 11/04/2020 12:59 PM CDT [facility] BASOPHILS 0.6 % 11/04/2020 12:59 PM CDT [facility] IMMATURE GRANS % 0.4 % 11/05/19 12:59 PM CDT [facility] ABS. NEUTROPHILS TOTAL 8.55(H) 1.80 - 7.70 x10'3/uL 11/04/2020 12:59 PM CDT [facility] ABS. LYMPHOCYTES 1.33 1.00 - 4.80 x10'3/uL 11/04/2020 12:59 PM CDT [facility] ABS. MONOCYTES 0.54 0.30 - 0.82 x10'3/uL 11/04/2020 12:59 PM CDT [facility] ABS. EOSINOPHILS 0.02(L) 0.04 - 0.54 x10'3/uL 11/04/2020 12:59 PM CDT [facility] ABS. BASOPHILS 0.06 0.01 - 0.08 x10'3/uL 11/04/2020 12:59 PM CDT [facility] ABS. IMMATURE GRANULOCYTES 0.04 0.00 - 0.49 x10'3/uL 11/04/2020 12:59 PM CDT [facility] 11/04/2020 12:4 3 PM CDT Una Chavez ALARM SERVICE TECHNICIAN LABORATORY Final Resul t [facility] [address] [place] [address], * ECG 12 lead (11/04/2020 12:27 PM CDT) 11/04/2020 12:2 7 PM CDT Narrative [facility] RAD - 11/04/2020 2:21 PM CDT ?[facility] ? [address] [place] ? Test Date: ?2020-11-04 Pat Name: ? GIOVANA LEBRON ? Department: ? Room: ? 4 Gender: ? Male ? 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 RM : ?1980 ? Requested By: UNA CHAVEZ Order Number: [id number] ? Reading MD: ?? Cristobal Crump ? Measurements Intervals ?[place] ? Rate: ? 128 ?P: ?80 AL: ? 169 ?QRS: ?72 QRSD: ? 98 ? T: ?71 QT: ? 282 ? QTc: ?413 ? Interpretive Statements SINUS TACHYCARDIA INCOMPLETE RIGHT BUNDLE BRANCH BLOCK ABNORMAL RHYTHM ECG Compared to ECG 11/28/2012 15:26:22 Incomplete right bundle-branch block now present Other ischemic changes, not STEMI Una Chavez NP CRITICAL ALERT ISSUED ON 11-04-2020 12:30:00 Procedure Note Cristobal Crump MD - 11/04/[address] [place] Test Date: 2020-11-04 Pat Name: GIOVANA LEBRON Department: Room: 4 Gender: Male Ferris Wheel Attendant: : 1980 Requested By: UNA CHAVEZ Order Number: [id number] Reading MD: Cristobal Crump Measurements Intervals [place] Rate: 128 P: 80 AL: 169 QRS: 72 QRSD: 98 T: 71 QT: 282 QTc: 413 Interpretive Statements SINUS TACHYCARDIA INCOMPLETE RIGHT BUNDLE BRANCH BLOCK ABNORMAL RHYTHM ECG Compared to ECG 11/28/2012 15:26:22 Incomplete right bundle-branch block now present Other ischemic changes, not STEMI Una Chavez NP CRITICAL ALERT ISSUED ON 11-04-2020 12:30:00 us Una Chavez ALARM SERVICE TECHNICIAN ECG ORDERABLES Final Resul t [facility] RAD documented in this encounter Visit Diagnoses Diagnosis Shortness of breath- Primary documented in this encounter Administered Medications Inactive Administered Medications - up to 3 most recent administrations Medication Order MAR Action Action Date Dose Rate Site iopamidol (ISOVUE-370) 76 % injection 80 mL 80 mL, Intravenous, IMG once as needed, Contrast, 1 dose, Starting on Mon11/04/20 at 1539, Until Mon11/04/20 at 1539 Given 11/04/2020 3:39 PM CDT 80 mLs oxyCODONE-acetaminophen (PERCOCET) 5-325 MG tablet 1 tablet 1 tablet, Oral, Once, 1 dose, On Mon11/04/20 at 1245, Maximum dose of acetaminophen is 4000 mg from all sources in 24 hours. Given 11/04/2020 12:40 PM CDT 1 tablet documented in this encounter Active and Recently Administered Medications Times are shown in CDT. Scheduled Medication Order 11/02/2020 11/03/2020 11/04/2020 oxyCODONE-acetaminophen (PERCOCET) 5-325 MG tablet 1 tablet (COMPLETED) 1 tablet, Oral, Once, 1 dose, On Mon11/04/20 at 1245, Maximum dose of acetaminophen is 4000 mg from all sources in 24 hours. 1240 (Given - Provid er: Enma Pinedo RN) PRN Medication Order 11/02/2020 11/03/2020 11/04/2020 iopamidol (ISOVUE-370) 76 % injection 80 mL (COMPLETED) 80 mL, Intravenous, IMG once as needed, Contrast, 1 dose, Starting on Mon11/04/20 at 1539, Until Mon11/04/20 at 1539 1539 (Given - Provid er: Hayden Randolph RTR) documented in this encounter Care Teams Educational Institution President Relationship Specialty Start Date End Date Baljeet Doran MD [address] [address] PCP - General 11/24/16 documented as of this encounter
--- OUTSIDE RECORDS SUMMARY | 2024-07-20 15:36 | XMS_ITS | Encounter Summary ---
Author Organization [facility] Address [address] [place] [address] Care Team Providers Care Stage Driver Name Role Phone Nopcp, Patient Primary Care Provider Unavailabl e Reason for Visit * Reason Comments Addiction problem has been addicted to Oxycontin since 2004, last dose was 2 days ago. Would like to stop. Has joint, back pain, nausea, diarrhea and anxiety since quitting. Encounter Details Date Type Department Care Team (Late st Contact Info) Description 07/13/2009 3:40 PM [employer]TER [employer] - 07/13/2009 5:47 PM [facility]TER [facility] Emergency ER at [address] [address] See Vinson MD [address] [place] [address] [place] [address] Drug Withdrawal (HCC); Nausea With Vomiting Discharge Disposition: Home or Self Care Social History Tobacco Use Types Packs/Day Years Used Date Smoking Tobacco: Never Alcohol Use Standard Drinks/Week Comments No 0 (1 standard drink = 0.6 oz pur e alcohol) Sex and Gender Information Value Date Recorded Sex Assigned at Not on file Gender Identity Not on file Sexual Orientation Not on file documented as of this encounter Last Filed Vital Signs Vital Sign Reading Time Taken Comments Blood Pressure 140/70 07/13/2009 5:46 PM [facility] [employer] Pulse 98 07/13/2009 5:46 PM [employer] Temperature 36.5 ??C (97.7 ??F) 07/13/2009 3:45 PM CS T Respiratory Rate 18 07/13/2009 3:45 PM [employer] Oxygen Saturation 100% 07/13/2009 5:46 PM [employer] Inhaled Oxygen Concentration - - Weight 88.5 kg (195 lb) 07/13/2009 3:45 PM [employer] Height 175.3 cm (5' 9 ) 07/13/2009 3:45 PM [employer] Body Mass Index 28.8 07/13/2009 3:45 PM [employer] documented in this encounter Discharge Instructions * Discharge Instructions* Demetrice Dorsey RN - 07/13/2009 5:45 PM [employer] [employer] * Discharge Instructions* David, Radha - 07/13/2009 12:00 AM [employer] documented in this encounter Medications at Time of Discharge Medication Sig Dispensed Refills Start Date End Date ondansetron (ZOFRAN) 4 MG tablet Take 1 Tab by mouth every 4 hours as needed for Nausea/Vomiting. 10 0 07/13/2009 oxycodone CR 12hr (OXYCONTIN) 40 MG tablet Take 40 mg by mouth daily. cloNIDine (CATAPRES) 0.1 MG tablet Take 1 Tab by mouth 2 times daily. 4 0 07/13/2009 07/28/2009 documented as of this encounter ED Notes * See Vinson MD - 07/13/2009 3:54 PM CST 07/13/2009 3:54 PM HPI Comments: Raffaele is a 29-year-old male with a history of opiate addiction since 2004. Currently,he is using Oxycontin. He tried to enroll in [facility] today but has to wait 1-2 days to be admitted. He would like some relief from his withdrawal symptoms until admission to [facility]. He last took an Oxycontin two days ago. He complains of feeling shaky, anxious, and nauseated. He has vomited 3-4 times today. He has diarrhea and joint pain. He denies using any other drugs or alcohol. Review of Systems Constitutional: Negative. HENT: Negative. Eyes: Negative. Cardiovascular: Negative. Negative for chest pain. Respiratory: Negative. Is not experiencing shortness of breath. Gastrointestinal: Positive for nausea, vomiting, abdominal pain and diarrhea. Negative for blood instool. Psychiatric: Negative for suicidal ideas. Is nervous/anxious. There is substance abuse. All other systems reviewed and are negative. Physical Exam Nursing note and vitals reviewed. Constitutional: He is oriented. Well developed, well nourished, somewhat anxious. HENT: Head: Normocephalic and atraumatic. Mouth/Throat: Uvula is midline, oropharynx is clear and moist and mucous membranes are normal. Eyes: Conjunctivae and extraocular motions are normal. Pupils are equal, round, and reactive to light. Neck: Normal range of motion. Neck supple. No tracheal deviation present. No thyromegaly present. Cardiovascular: Normal rate, regular rhythm and intact distal pulses. Exam reveals no gallop and nofriction rub. No murmur heard. Pulmonary/Chest: Effort normal and breath sounds normal. No respiratory distress. He has no wheezes. He has no rales. He exhibits no tenderness. Abdominal: Bowel sounds are normal. He exhibits no distension and no mass. Soft. No tenderness. He has no rebound and no guarding. Musculoskeletal: Normal range of motion. He exhibits no edema and no tenderness. Lymphadenopathy: He has no cervical adenopathy. Neurological: He is alert and oriented. He has normal sensation, normal strength and intact cranialnerves. GCS score is 15. Psychiatric: His mood appears anxious. EKG Interpretation Lab Interpretation Oxygen Saturation Interpretation Results for orders placed during the hospital encounter of 07/13/2009 AMYLASE BLOOD Component Value Range ??? Amylase 36. 30 - 110 (U/L) CBC W AUTO DIFFERENTIAL Component Value Range ??? WBC 13.6 (*) 4.0 - 11.0 (K/CUMM) ??? RBC 5.41 4.10 - 5.70 (M/CUMM) ??? Hgb 16.0 12.6 - 17.4 (gm/dL) ??? HCT 45.5 37 - 52 (%) ??? MCV 84.1 80 - 99 (fL) ??? MCH 29.5 26 - 34 (pg) ??? MCHC 35.1 32 - 36 (gm/dL) ??? RDW 12.3 11.5 - 14.5 (%) ??? Plt Ct K/CUMM 275 150 - 400 (K/CUMM) ??? Gran 89.3 (*) 43 - 70 (%) ??? Lymph 6.5 (*) 22 - 41 (%) ??? Carson 2.5 2 - 13 (%) ??? Eos 0.2 0 - 6 (%) ??? Baso 1.5 0 - 2 (%) ??? Gran Abs 12.2 (*) 1.7 - 7.7 ??? Lymph Abs 0.9 (*) 1.0 - 3.0 ??? Carson Abs 0.3 0.2 - 1.0 ??? Eos Abs 0.0 0.0 - 0.4 ??? Baso Abs 0.2 (*) 0.0 - 0.1 ??? Comment Slide scanned for immature granulocytes. COMPREHENSIVE METABOLIC PANEL Component Value Range ??? Glucose 118. (*) 75 - 110 (mg/dL) ??? BUN 10. 9 - 21 (mg/dL) ??? Creatinine .85 0.66 - 1.25 (mg/dL) ??? BUN/Creat 11.6 ??? Sodium 144. 137 - 145 (mmol/L) ??? Potassium 3.9 3.6 - 5.0 (mmol/L) ??? Chloride 104. 98 - 107 (mmol/L) ??? CO2 26. 22 - 31 (mmol/L) ??? Anion Gap 14. ??? Calcium 10.2 8.4 - 11.5 (mg/dL) ??? Alk Phos 83. 38 - 126 (U/L) ??? ALT/SGPT 41. 7 - 56 (U/L) ??? AST/SGOT 23. 5 - 40 (U/L) ??? Bili Total .7 0.2 - 1.3 (mg/dL) ??? Protein Total 8.7 (*) 6.3 - 8.2 (gm/dL) ??? Albumin 5.0 3.9 - 5.0 (gm/dL) ? ? eGFR by MDRD >60 SEE BELOW (ml/min/1.73 m2) LIPASE BLOOD Component Value Range ??? Lipase 55. 23 - 208 (U/L) DRUG SCREEN TOX URINE PANEL Component Value Range ??? Amphetamines Screen Urine Not Detected 1000 ng/mL Cutoff (ng/mL) ??? Barbiturates Screen Urine Not Detected 300 ng/mL Cutoff (ng/mL) ??? Benzodiazepines Screen Urine Not Detected 300 ng/mL Cutoff (ng/mL) ??? Cannabinoids Screen Urine Not Detected 20 ng/mL Cutoff (ng/mL) ??? Cocaine Screen Urine Not Detected 300 ng/mL Cutoff (ng/mL) ??? Methadone Screen Urine Not Detected 300 ng/mL Cutoff (ng/mL) ??? Methaqualone Screen Urine Not Detected 300 ng/mL Cutoff (ng/mL) ??? Opiates Screen Urine Presumptive Positive 300 ng/mL Cutoff (ng/mL) ??? Phencyclidine Screen Not Detected 25 ng/mL Cutoff (ng/mL) ??? Propoxyphene Screen Urine Not Detected 300 ng/mL Cutoff (ng/mL) ??? Oxycodone Screen Urine Not Detected 100 ng/mL Cutoff (ng/mL) ??? Ecstasy Screen Urine Not Detected 500 ng/mL Cutoff (ng/mL) ??? Creat Urine Tox 481.1 (mg/dL) ??? GC/MS Screen Urine To follow ??? GC/MS Screen Comment ??? Legal Disclaimer Urine Value: This drug screen is designed for MEDICAL purposes only. It is not to be used for legal purposes including but not limited to workman's comp, police investigations, occupational issues, child custody. URINALYSIS ROUTINE W/REFLEX TO CULTURE Component Value Range ??? Source CleanCatch ??? Color UA Yellow ??? Character UA Cloudy ??? Specific [place] UA 1.025 1.002 - 1.030 ??? pH UA 5.5 5.0 - 8.0 ??? Protein UA 1+ NEG ??? Blood UA Negative NEG ??? Leukocyte UA Negative NEG ??? Nitrite UA Negative NEG ??? Glucose UA Negative NEG ??? Ketone UA Trace NEG ??? Bili UA Negative NEG ??? Urobilinogen UA 0.2 0.1 - 1.0 (E.U./dl) ??? WBC UA 0-1 0 - 1 (/HPF) ??? RBC UA 0-1 0 - 1 (/HPF) ??? Epithelial Cell UA 0-1 0 - 1 (/HPF) ??? Crystals UA 4+ Amorphous (/LPF) ??? UA Culture No culture to be done per protocol. History Past Medical History Diagnosis Date ??? Knee Injury 2005 work related left knee strain Past Surgical History Procedure Date ??? Carpal tunnel release History Social History ??? Marital Status: Spouse Name: N/A Number of Children: N/A ??? Years of Education: N/A Occupational History ??? Not on file. Social History Main Topics ??? Tobacco Use: Never ??? Alcohol Use: No ??? Drug Use: Yes oxycontin daily ??? Sexually Active: Not on file Other Topics Concern ??? Not on file Social History Narrative ??? No narrative on file Medications Current outpatient prescriptions Medication Sig Dispense Refill ??? oxycodone CR 12hr (OXYCONTIN) 40 MG tablet Take 40 mg by mouth daily. Progress Notes Procedures Medical Decision Making I have reviewed the: Nursing Notes and Vitals. I have interpreted the following results: Labs. ED Plan/Course: 17:30: Feeling better. Diagnosis: 1) Opiate withdrawal, 2) Vomiting No diagnosis found. TER AUTOMATIC documented in this encounter Miscellaneous Notes * Miscellaneous Scans - Document, Scanned - 07/13/2009 12:00 AM [employer]TER [employer] documented in this encounter Plan of Treatment Not on file documented as of this encounter Procedures Procedure Name Priority Date/Time Associated Diagnosis Comments CBC W AUTO DIFFERENTIAL STAT 07/13/2009 4:30 PM [facility]TER [employer] Drug Withdrawal (HCC) COMPREHENSIVE METABOLIC PANEL STAT 07/13/2009 4:30 PM [employer] [employer] Drug Withdrawal (HCC) LIPASE BLOOD STAT 07/13/2009 4:30 PM [facility] [employer] Drug Withdrawal (HCC) AMYLASE BLOOD STAT 07/13/2009 4:30 PM [employer] [employer] Drug Withdrawal (HCC) URINALYSIS REFLEX MICROSCOPIC REFLEX CULTURE STAT 07/13/2009 4:15 PM [employer] [employer] Drug Withdrawal (HCC) URINE DRUG SCREEN IMMUNOASSAY STAT 07/13/2009 4:15 PM [employer] [employer] Drug Withdrawal (HCC) documented in this encounter Results * LIPASE BLOOD (07/13/2009 4:30 PM MOUNTER [employer]) Lipase 55. 23 - 208 U/L [facility] BLOOD SPECIMEN / Unknown 07/13/2009 4:30 PM [facility]TER [employer] 07/13/2009 5:03 PM [facility]TER [employer] eSe Vinson MD LAB - CHEMISTRY [facility] Performing Organization Address City/[facility]/ZIP Co de Phone Number [facility] [address] [place] [address] * (ABNORMAL) COMPREHENSIVE METABOLIC PANEL (07/13/2009 4:30 PM [employer] [employer]) Glucose 118.(H) 75 - 110 mg/dL [facility] BUN 10. 9 - 21 mg/dL [facility] Creatinine .85 0.66 - 1.25 mg/dL [facility] BUN/Creatinine Ratio 11.6 [facility] Sodium 144. 137 - 145 mmol/L [facility] Potassium 3.9 3.6 - 5.0 mmol/L [facility] Chloride 104. 98 - 107 mmol/L [facility] CO2 26. 22 - 31 mmol/L [facility] Anion Gap 14. [facility] Calcium 10.2 8.4 - 11.5 mg/dL [facility] Alkaline Phosphatase 83. 38 - 126 U/L [facility] ALT 41. 7 - 56 U/L [facility] AST 23. 5 - 40 U/L [facility] Bilirubin Total .7 0.2 - 1.3 mg/dL [facility] Protein Total 8.7(H) 6.3 - 8.2 gm/dL [facility] Albumin 5.0 3.9 - 5.0 gm/dL [facility] eGFR by MDRD >60 SEE BELOW ml/min/1.7 3 m2 [facility] Comment: >60 Normal Chronic Disease <60 Renal Failure <15 BLOOD SPECIMEN / Unknown 07/13/2009 4:30 PM [employer] [employer] 07/13/2009 5:03 PM [employer] [employer] See Vinson MD LAB - CHEMISTRY TED RAMOS Performing Organization Address [facility]/ZIP Co de Phone Number [facility] [address] [place] [address] * (ABNORMAL) CBC W AUTO DIFFERENTIAL (07/13/2009 4:30 PM MOUNTER [employer]) WBC 13.6(H) 4.0 - 11.0 K/CUMM [facility] RBC 5.41 4.10 - 5.70 M/CUMM [facility] Hemoglobin 16.0 12.6 - 17.4 gm/dL [facility] Hematocrit 45.5 37 - 52 % [facility] MCV 84.1 80 - 99 fL [facility] MCH 29.5 26 - 34 pg [facility] MCHC 35.1 32 - 36 gm/dL [facility] RDW 12.3 11.5 - 14.5 % [facility] Platelet Count 275 150 - 400 K/CUMM [facility] Granulocytes % 89.3(H) 43 - 70 % [facility] Lymphocytes % 6.5(L) 22 - 41 % [facility] Monocytes % 2.5 2 - 13 % [facility] Eosinophils % 0.2 0 - 6 % [facility] Basophils % 1.5 0 - 2 % [facility] Granulocytes Absolute 12.2(H) 1.7 - 7.7 [facility] Lymphocytes Absolute 0.9(L) 1.0 - 3.0 [facility] Monocytes Absolute 0.3 0.2 - 1.0 [facility] Eosinophils Absolute 0.0 0.0 - 0.4 [facility] Basophils Absolute 0.2(H) 0.0 - 0.1 [facility] Comment Slide scanned for immature granulocytes . [facility] BLOOD SPECIMEN / Unknown 07/13/2009 4:30 PM [employer] [employer] 07/13/2009 5:03 PM [facility] [employer] See Vinson MD LAB - HEMATOLOGY ORD ERABLES [facility] [address] [place] [address] * AMYLASE BLOOD (07/13/2009 4:30 PM [employer]) Amylase 36. 30 - 110 U/L [facility] BLOOD SPECIMEN / Unknown 07/13/2009 4:30 PM [employer] 07/13/2009 5:03 PM [employer]TER [employer] See Vinson MD LAB - CHEMISTRY ORDE RICHARD [facility] [address] [place] [address] * URINALYSIS ROUTINE W/REFLEX TO CULTURE (07/13/2009 4:15 PM [facility] [employer]) Source CleanCatch [facility] Color UA Yellow [facility] Character UA Cloudy [facility] Specific [place] UA 1.025 1.002 - 1.030 [facility] [...] Urobilinogen UA 0.2 0.1 - 1.0 E.U./dl [facility] WBC UA 0-1 0 - 1 /HPF [facility] RBC UA 0-1 0 - 1 /HPF [facility] Epithelial Cell UA 0-1 0 - 1 /HPF [facility] Crystals UA 4+ Amorphous /LPF [facility] Culture Urine No culture to be done per protocol. [facility] URINE SPECIMEN OBTAINED BY CLEAN CATCH PROCEDURE / Unknown 07/13/2009 4:15 PM [employer] [employer] 07/13/2009 5:02 PM [employer]TER [employer] See Vinson MD LAB - URINALYSIS ORD ERABLES [facility] [address] [place] [address] * DRUG SCREEN TOX URINE PANEL (07/13/2009 4:15 PM [employer]) Amphetamines Screen Urine Not Detected 1000 ng/mL Cutoff ng/mL [facility] Barbiturates Screen Urine Not Detected 300 ng/mL Cutoff ng/mL [facility] Benzodiazepines Screen Urine Not Detected 300 ng/mL Cutoff ng/mL [facility] Cannabinoids Screen Urine Not Detected 20 ng/mL Cutoff ng/mL [facility] Cocaine Screen Urine Not Detected 300 ng/mL Cutoff ng/mL [facility] Methadone Screen Urine Not Detected 300 ng/mL Cutoff ng/mL [facility] Methaqualone Screen Urine Not Detected 300 ng/mL Cutoff ng/mL [facility] Opiate Screen Urine Presumptive Positive 300 ng/mL Cutoff ng/mL [facility] Phencyclidine Screen Urine Not Detected 25 ng/mL Cutoff ng/mL [facility] Propoxyphene Screen Urine Not Detected 300 ng/mL Cutoff ng/mL [facility] Oxycodone Screen Urine Not Detected 100 ng/mL Cutoff ng/mL [facility] Ecstasy Screen Urine Not Detected 500 ng/mL Cutoff ng/mL [facility] Creatinine Urine Tox 481.1 mg/dL [facility] GC/MS Screen Urine Negative [facility] Comment GC/MS Screen [facility] Comment: ? The GC/MS screen is [...] comp, police investigations, occupational issues, child custody. [facility] URINE / Unknown 07/13/2009 4 :15 PM [employer]TER [employer] 07/13/2009 5:03 PM [employer]OUNTER [employer] See Vinson MD LAB - URINE CHEMISTR Y ORDERABLES [facility] [address] [place] [address] documented in this encounter Visit Diagnoses Diagnosis Drug withdrawal (HCC) Drug withdrawal Nausea with vomiting documented in this encounter Administered Medications Inactive Administered Medications - up to 3 most recent administrations Medication Order MAR Action Action Date Dose Rate Site 0.9% nacl infusion at 1,000 mL/hr, Intravenous, BOLUS IV, 1 dose, On Mon07/13/09 at 1615 $ Given 07/13/2009 4:15 PM [employer]TER [employer] 1000 mL/hr cloNIDine (CATAPRES) tablet 0.1 mg 0.1 mg, Oral, ONCE, 1 dose, On Mon07/13/09 at 1615 $ Given 07/13/2009 4:49 PM [employer]OUNTER [employer] 0.1 mg ketorolac (TORADOL) injection 30 mg 30 mg, Intravenous, ONCE, 1 dose, On Mon07/13/09 at 1730 $ Given 07/13/2009 5:19 PM [employer]OUNTER [employer] 30 mg ondansetron (ZOFRAN) injection 4 mg 4 mg, Intravenous, ONCE, 1 dose, On Mon07/13/09 at 1615 $ Given 07/13/2009 4:50 PM [employer]TER [employer] 4 mg thiamine (B-1) injection 100 mg 100 mg, Intravenous, ONCE, 1 dose, On Mon07/13/09 at 1615 $ Given 07/13/2009 4:50 PM [employer]TER [employer] 100 mg documented in this encounter Active and Recently Administered Medications Times are shown in [employer]. Scheduled Medication Order 07/11/2009 07/12/2009 07/13/2009 0.9% nacl infusion (COMPLETED) at 1,000 mL/hr, Intravenous, BOLUS IV, 1 dose, On Mon07/13/09 at 1615 1615 ($ Given - Prov ider: Digna Hernandez RN) cloNIDine (CATAPRES) tablet 0.1 mg (COMPLETED) 0.1 mg, Oral, ONCE, 1 dose, On Mon07/13/09 at 1615 1649 ($ Given - Prov ider: Digna Hernandez RN) ketorolac (TORADOL) injection 30 mg (COMPLETED) 30 mg, Intravenous, ONCE, 1 dose, On Mon07/13/09 at 1730 1719 ($ Given - Prov ider: Demetrice Dorsey RN) ondansetron (ZOFRAN) injection 4 mg (COMPLETED) 4 mg, Intravenous, ONCE, 1 dose, On Mon07/13/09 at 1615 1650 ($ Given - Prov ider: Digna E Nothstine, RN) thiamine (B-1) injection 100 mg (COMPLETED) 100 mg, Intravenous, ONCE, 1 dose, On 07/13/09 at 1615 1650 ($ Given - Prov ider: Digna Hernandez RN) documented in this encounter Care Teams Stage Driver Relationship Specialty Start Date End Date Nopcp, Patient PCP - General 07/13/09 10/08/13 documented as of this encounter
--- OUTSIDE RECORDS SUMMARY | 2024-07-20 15:36 | XMS_ITS | Encounter Summary ---
Author Organization [facility] Address [address] [place] [address]. [place] [address] [place] [address] Care Team Providers Care Atmospheric Physics Professor Name Role Phone Baljeet oDran MD Primary Care Provider Reason for Visit * Reason Comments Image (SCAN) Encounter Details Date Type Department Care Team (Latest Contact Info) Description 11/07/2020 Scan HEALTH INFO SRVCS Scanned, Documents Image [...] Priority Date/Time Associated Diagnosis Comments IMAGE GENERIC 11/07/2020 documented in this encounter Results * IMAGE GENERIC (11/07/2020) Anatomical Region Laterality Modality Other 11/07/2020 Narrative 11/07/2020 Ordered by an unspecified provider. us Documents Scanned SCANNING Final Result documented in this encounter Visit Diagnoses Not on filedocumented in this encounter Care Teams Atmospheric Physics Professor Relationship Specialty Start Date End Date Baljeet Doran MD [address]'[place], [place] [id number] PCP - General 11/24/16 documented as of this encounter
--- OUTSIDE RECORDS SUMMARY | 2024-07-20 15:36 | XMS_ITS | Encounter Summary ---
Author Organization [facility] Address [address] [place] [address]. [place] [address] [place] [address] Care Team Providers Care Preparation Supervisor Name Role Phone Baljeet Doran MD Primary Care Provider Reason for Visit * Reason Comments Image (SCAN) Encounter Details Date Type Department Care Team (Latest Contact Info) Description 11/09/2020 Scan HEALTH INFO SRVCS Scanned, Documents Image [...] Priority Date/Time Associated Diagnosis Comments IMAGE GENERIC 11/09/2020 documented in this encounter Results * IMAGE GENERIC (11/09/2020) Anatomical Region Laterality Modality Other 11/09/2020 Narrative 11/09/2020 Ordered by an unspecified provider. us Documents Scanned SCANNING Final Result documented in this encounter Visit Diagnoses Not on filedocumented in this encounter Care Teams Preparation Supervisor Relationship Specialty Start Date End Date Baljeet Doran MD [address], [place] [phone] PCP - General 11/24/16 documented as of this encounter
--- OUTSIDE RECORDS SUMMARY | 2024-07-20 15:36 | XMS_ITS | Referral Summary ---
Author Organization [facility] Address [address] [place] [address] Care Team Providers Care Cover Cutter Machine Name Role Phone Unavailable Primary Care Provider Unavailabl e Source Comments [facility],non-owned Affiliates and Associated Physician Practices is amultiple site organization consisting of ambulatory clinics and hospital sitesin [place], [place], [place] and [place]. This disclosure is being madepursuant to the Care Everywhere program and may not contain all information available regarding this patient. Last updated 18.[facility] Allergies No known active allergies Medications * Be aware that medications may not be up to date on this document. Alwaysverify current medications with the patient. Medication Sig Dispensed Refills Start Date End Date Status oxycodone CR 12hr (OXYCONTIN) 40 MG tablet Take 40 mg by mouth daily. Active ondansetron (ZOFRAN) 4 MG tablet Take 1 Tab by mouth every 4 hours as needed for Nausea/Vomiting. 10 0 07/13/2009 Active Social History Tobacco Use Types Packs/Day Years [...] Comments Blood Pressure 140/70 07/13/2009 5:46 PM COLLAR STITCHER Pulse 98 07/13/2009 5:46 PM COLLAR STITCHER Temperature 36.5 ??C (97.7 ??F) 07/13/2009 3:45 PM CS T Respiratory Rate 18 07/13/2009 3:45 PM COLLAR STITCHER Oxygen Saturation 100% 07/13/2009 5:46 PM COLLAR STITCHER Inhaled Oxygen Concentration - - Weight 88.5 kg (195 lb) 07/13/2009 3:45 PM COLLAR STITCHER Height 175.3 cm (5' 9 ) 07/13/2009 3:45 PM COLLAR STITCHER Body Mass Index 28.8 07/13/2009 3:45 PM COLLAR STITCHER Plan of Treatment Not on file
--- OUTSIDE RECORDS SUMMARY | 2024-07-20 15:36 | XMS_ITS | Encounter Summary ---
Author Organization [facility] Address [address] [place] [address]. [place] [address] [place] [address] Care Team Providers Care Mold Cleaning And Storage Supervisor Name Role Phone Baljeet Doran MD Primary Care Provider Reason for Visit * Reason Comments Image (SCAN) Encounter Details Date Type Department Care Team (Latest Contact Info) Description 11/08/2020 Scan HEALTH INFO SRVCS Scanned, Documents Image [...] Priority Date/Time Associated Diagnosis Comments IMAGE GENERIC 11/08/2020 documented in this encounter Results * IMAGE GENERIC (11/08/2020) Anatomical Region Laterality Modality Other 11/08/2020 Narrative 11/08/2020 Ordered by an unspecified provider. us Documents Scanned SCANNING Final Result documented in this encounter Visit Diagnoses Not on filedocumented in this encounter Care Teams Mold Cleaning And Storage Supervisor Relationship Specialty Start Date End Date Baljeet Doran MD [address] [phone] PCP - General 11/24/16 documented as of this encounter
--- OUTSIDE RECORDS SUMMARY | 2024-07-20 15:36 | XMS_ITS | Clinical Summary ---
Author Organization [facility] Address [address] [place] [address] Care Team Providers Care Container Finisher Name Role Phone Unavailable Primary Care Provider Unavailabl e Source Comments [facility],non-owned Affiliates and Associated Physician Practices is amultiple site organization consisting of ambulatory clinics and hospital sitesin [place], [place], [place] and [place]. This disclosure is being madepursuant to the Care Everywhere program and may not contain all information available regarding this patient. Last updated 18.[facility] Allergies No known active allergies Medications * [...] Comments Blood Pressure 140/70 07/13/2009 5:46 PM HRIS ANALYST Pulse 98 07/13/2009 5:46 PM HRIS ANALYST Temperature 36.5 ??C (97.7 ??F) 07/13/2009 3:45 PM CS T Respiratory Rate 18 07/13/2009 3:45 PM HRIS ANALYST Oxygen Saturation 100% 07/13/2009 5:46 PM HRIS ANALYST Inhaled Oxygen Concentration - - Weight 88.5 kg (195 lb) 07/13/2009 3:45 PM HRIS ANALYST Height 175.3 cm (5' 9 ) 07/13/2009 3:45 PM HRIS ANALYST Body Mass Index 28.8 07/13/2009 3:45 PM HRIS ANALYST Plan of Treatment Health Maintenance Due Date Last Done Comments COLOGUARD (AGES 45-75) - COL ON CA SCREENING 1978 COLON MONITORING 1978 COLONOSCOPY - COLON CA SCREENING 1978 CT COLONOGRAPHY - COLON CA SCREENING 1978 Colorectal Cancer Screening 1978 FIT - COLON CA SCREENING 1978 FLEX SIG - COLON CA SCREENING 1978 LIPID TESTING 1978 HIV SCREENING 1993 HEPATITIS C SCREENING 02/10/1996 DTAP/TDAP/TD VACCINES (1 - Tdap) 1997 HEPATITIS B VACCINE (1 of 3 - 19+ 3-dose series) 1997 DEPRESSION SCREENING 07/17/2023 COVID-19 VACCINE ( - 2023-2 5 season) 2024 INFLUENZA VACCINE (#1) 2024 ZOSTER VACCINE (1 of 2) 02/15/2028 HIB VACCINE Aged Out No longer eligi ble based on patient's age to complete this topic HPV VACCINE Aged Out No longer eligi ble based on patient's age to complete this topic MENINGOCOCCAL VACCINE Aged Out No mouna stephanie eligible based on patient's age to complete this topic PNEUMOCOCCAL VACCINE Aged Out No long er eligible based on patient's age to complete this topic
--- OUTSIDE RECORDS SUMMARY | 2024-07-20 15:36 | XMS_ITS | Encounter Summary ---
Author Organization [facility] Address [facility] [place] [address] [place] [address] Care Team Providers Care Supervisor Benzene Refining Name Role Phone Baljeet Doran MD Primary Care Provider Encounter Details Date Type Department Care Team (Latest Contact Info) Description 11/05/2020 Scan HEALTH INFO SRVCS Scanned, Documents Social [...] filedocumented in this encounter Care Teams Supervisor Benzene Refining Relationship Specialty Start Date End Date Baljeet Doran MD [address] [place] [address] PCP - General 11/24/16 documented as of this encounter
--- OUTSIDE RECORDS SUMMARY | 2024-07-20 15:37 | XMS_ITS | Encounter Summary ---
Author Organization [facility] Address [facility] [facility] [place] [address] [place] [address] Care Team Providers Care Welt Maker Name Role Phone Baljeet Doran MD Primary Care Provider Reason for Visit * Reason Onset Date Comments Results 09/30/2019 Encounter Details Date Type Department Care Team (Late st Contact Info) Description 09/30/2019 Telephone [facility] Family Medicine - [place] [address] [place] [phone] Baljeet Doran MD [address] [place], [place] [phone] Results Social History Tobacco Use Types Packs/Day Years Used Date Smoking Tobacco: Never Smokeless Tobacco: Never Sex and Gender Information Value Date Recorded Sex Assigned at Not on file Legal Sex Male 12:41 AM CDT Gender Identity Not on file Sexual Orientation Not on file documented as of this encounter Progress Notes * Nargis Feng MA - 09/30/2019 10:05 AM CDT Pt notified per Dr. Doran The X-ray only demonstrates mild arthritis. If not controlled with tylenol or motrin he can have a steroid injection done here or start physical therapy. US demonstrated only a benign cyst with no further workup necessary. * Zahraa Parker - 09/30/2019 9:53 AM CDT Patient is calling for x-ray results. documented in this encounter Plan of Treatment Not on file documented as of this encounter Visit Diagnoses Not on filedocumented in this encounter Care Teams Welt Maker Relationship Specialty Start Date End Date Baljeet Doran MD [address] [phone] PCP - General 11/24/16 documented as of this encounter
--- OUTSIDE RECORDS SUMMARY | 2024-07-20 15:37 | XMS_ITS | Encounter Summary ---
Author Organization [facility] Address [facility] [place] [address] [place] [address] Care Team Providers Care Senior Java Programmer Name Role Phone Baljeet Doran MD Primary Care Provider Reason for Visit * Reason Onset Date Comments Results 08/21/2019 Xray and US Encounter Details Date Type Department Care Team (Late st Contact Info) Description 08/21/2019 Telephone [facility] Family Medicine - [place] [address] [place] [phone] Baljeet Doran MD [address] [place], [place] [phone] Results (Xray and US) Social History Tobacco Use Types Packs/Day Years Used Date Smoking Tobacco: Never Smokeless Tobacco: Never Sex and Gender Information Value Date Recorded Sex Assigned at Not on file Legal Sex Male 12:41 AM CDT Gender Identity Not on file Sexual Orientation Not on file documented as of this encounter Progress Notes * Estela Diaz RN - 09/13/2019 8:59 AM CST LMOM for pt to call office back. TRICIAN CRANE MAINTENANCE * Baljeet Doran MD - 09/12/2019 4:34 PM CST The X-ray only demonstrates mild arthritis. If not controlled with tylenol or motrin he can have a steroid injection done here or start physical therapy. US demonstrated only a benign cyst with no further workup necessary. TRICIAN CRANE MAINTENANCE * Rafaela Garcia - 08/21/2019 2:32 PM CST Patient is calling to get his results from his x-ray and US. He had these done at [facility]. CB# is [phone] TRICIAN CRANE MAINTENANCE documented in this encounter Plan of Treatment Not on file documented as of this encounter Visit Diagnoses Not on filedocumented in this encounter Care Teams Senior Java Programmer Relationship Specialty Start Date End Date Baljeet Doran MD [address] [address] PCP - General 11/24/16 documented as of this encounter
--- OUTSIDE RECORDS SUMMARY | 2024-07-20 15:37 | XMS_ITS | Encounter Summary ---
Author Organization [facility] Address [facility] [facility] [place] [address] [place] [address] Care Team Providers Care Back Up Machine Operator Name Role Phone Baljeet Doran MD Primary Care Provider Encounter Details Date Type Department Care Team (Latest Contact Info) Description 12/28/2019 12:35 PM CDT - 12/28/2019 11:59 PM CDT Hospital Encounter [facility] [place] [address] Delonet Agudelo MD [address] [place] [address] Discharge Disposition: Home or Self Care (Routine Discharge) Social History Tobacco Use Types Packs/Day Years Used Date Smoking Tobacco: Never Smokeless Tobacco: Never Alcohol Use Standard Drinks/Week Comments Yes 0 (1 standard drink = 0.6 oz pur e alcohol) occasional Sex and Gender Information Value Date Recorded Sex Assigned at Not on file Legal Sex Male 12:41 AM CDT Gender Identity Not on file Sexual Orientation Not on file COVID-19 Exposure Response Date Recorded In the last month, have you been in contact with someone who was confirmed or suspected to have Coronavirus / COVID-19? Unable to assess 12/25/2019 4:08 PM CDT documented as of this encounter Medications at Time of Discharge naproxen 500 MG tabletIndication s:Sore throat Take 1 tablet (500 mg total) by mouth every 12 (twelve) hours as needed. Take one tab twice daily with food for 7 days. Then take only as needed. 60 tablet 1 12/31/2019 aspirin EC 325 MG tablet Take 1 tablet (325 mg total) by mouth daily for 30 days. For blood clot prevention 30 tablet 12/31/2019 0 docusate sodium 100 MG capsule Take 1 capsule (100 mg total) by mouth 2 (two) times daily for 7 days. Hold for loose or frequent stools 60 capsule 12/31/2019 0 HYDROcodone-acet aminophen 5-325 MG tabletIndication s:Acute Pain < 7 Day Supply Take 1 tablet by mouth every 4 (four) hours as needed for Pain. Indications: Acute Pain < 7 Day Supply 15 tablet 12/31/2019 0 HYDROcodone-acet aminophen 5-325 MG tabletIndication s:Acute Pain < 7 Day Supply Take 1 tablet by mouth every 4 (four) hours as needed for Pain. Indications: Acute Pain < 7 Day Supply 15 tablet 12/31/2019 0 naproxen 500 MG tabletIndication s:Sore throat Take 1 tablet (500 mg total) by mouth every 12 (twelve) hours as needed. 60 tablet 1 11/12/2018 0 documented as of this encounter Plan of Treatment Not on file documented as of this encounter Procedures Procedure Name Priority Date/Time Associated Diagnosis Comments CORONAVIRUS (COVID 19) STAT 12/28/2019 11:45 AM CDT Preop testing documented in this encounter Results * PRE-SURGICAL/PRE-PROCEDURE CORONAVIRUS (COVID 19) (12/28/2019 11:45 AM CDT) CORONAVIRUS SARS COV 2 PCR (RESP) NOT DETECTED NOT DETECTED 12/29/2019 1:50 PM CDT [facility] Comment: A Not Detected (negative) test result for this test means that SARS- CoV-2 RNA was not present in the specimen above the limit of detection. A negative result does not rule out the possibility of COVID-19 and should not be used as the sole basis for treatment or patient management decisions. ??If COVID-19 is still suspected, based on exposure history together with other clinical findings, re-testing should be considered in consultation with public health authorities. Laboratory test results should always be considered in the context of clinical observations and epidemiological data in making a final diagnosis and patient management decisions. Please review the Fact Sheets and FDA authorized labeling available for health care providers and patients using the following websites: https://www.[employer]/home/Covid-19/HCP/[employer]/fact- sheet.html https://www.[employer]/home/Covid-19/Patients/ [employer]/fact-sheet.html This test has been authorized by the FDA under an Emergency Use Authorization (EUA) for use by authorized laboratories. Due to the current public health emergency, [facility] [facility] is receiving a high volume of samples from a wide variety of swabs and media for COVID-19 testing. In order to serve patients during this public health crisis, samples from appropriate clinical sources are being tested. Negative test results derived from specimens received in non-commercially manufactured viral collection and transport media, or in media and sample collection kits not yet authorized by FDA for COVID-19 testing should be cautiously evaluated and the patient potentially subjected to extra precautions such as additional clinical monitoring, including collection of an additional specimen. Methodology: ??Nucleic Acid Amplification Test (NAAT) includes PCR or TMA Additional information about COVID-19 can be found at the [employer] website: www.[employer]/Covid19. Test performed at [facility] [address] [address] [place], [place] ??[address] Director: SIVA FRANCIS DO,MPH NASOPHARYNGEAL SWAB / Unknown 12/28/2019 11:45 AM CDT us Delonte Agudelo MD MICROBIOLOGY - GENERAL ORDER TRUNG Final Result [facility] [address] [address] documented in this encounter Visit Diagnoses Diagnosis Preop testing Preoperative examination, unspecified documented in this encounter Additional Health Concerns Infection Onset Date Last Indicated Resolved Time COVID-19 Rule Out 12/28/2019 12/28/2019 12/29/2019 1:50 PM CDT documented as of this encounter Care Teams Back Up Machine Operator Relationship Specialty Start Date End Date Baljeet Doran MD [address] [phone] PCP - General 11/24/16 documented as of this encounter
--- OUTSIDE RECORDS SUMMARY | 2024-07-20 15:37 | XMS_ITS | Encounter Summary ---
Author Organization [facility] Address [facility] [facility] [place] [address] [place] [address] Care Team Providers Care Staff Sonographer Name Role Phone Baljeet Doran MD Primary Care Provider Reason for Visit * Reason Comments Knee Pain R knee/leg pain * Consultation (Urgent) - Closed Specialty Diagnoses / Procedures Referred By Contac t Referred To Contact ORTHOPAEDICS Diagnoses Chronic pain of right knee Baljeet Doran MD [address] [place] [address] Phone: tel: fax: Delonte Agudelo MD Phone: tel: fax: Referral ID Status Reason Start Date Expiration Date V isits Requested Visits Authorized [id number] Closed Specialty Services 08/06/2019 09/05/2020 100 100 Encounter Details Date Type Department Care Team (Latest Contact Info) Description 12/05/2019 3:40 PM CDT Office Visit [facility] Multispecialty Care - Health system [address], [address] [place] [phone] Madison Murillo MD [address] [place] [address] Knee Pain (R knee/leg pain) Social History Tobacco Use Types Packs/Day Years [...] have Coronavirus / COVID-19? No / Unsure 12/05/2019 3:50 PM CDT documented as of this encounter Last Filed Vital Signs Vital Sign Reading Time Taken Comments Blood Pressure 136/86 12/05/2019 3:55 PM CDT Pulse 115 12/05/2019 3:55 PM CDT Temperature - - Respiratory Rate - - Oxygen Saturation - - Inhaled Oxygen Concentration - - Weight 86.2 kg (190 lb) 12/05/2019 3:55 PM CDT Height - - Body Mass Index 27.26 11/18/2019 3:58 PM CDT documented in this encounter Progress Notes * Madison Murillo MD - 12/05/2019 3:40 PM CDT Images from the original note were not included. Office Progress Note Reason for Visit: Knee Pain (R knee/leg pain) History of Present Illness: Patient returns for follow-up on rt knee pain/meniscal tear. Patient treated by this for me with a cortisone injection earlier in October with a cortisone injection and wanted to see if he could continue working and hold off on surgery for that flipped meniscus tear diagnosed by MRI. He did have a brace to help with work activities. Initially the cortisone injection did relieve his knee pain symptoms where he was able to do work activities with a hinged knee brace. Unfortunately developed a smallfuruncle type infection in the calf region in the same leg. This caused significant swelling in theleg that patient needed treatment for with IV antibiotics he is unable to do work activities due topain symptoms in the calf and knee so about actually having that meniscus surgery done to alleviatedisability and pain symptoms there is we could return to work activities later on this summer. At last visit with me little over a week ago patient was still recovering from his superficial furuncle infection. I did want him to continue additional 10 days of antibiotics to ensure that this infection was healed prior referring over to Dr. Agudelo for consideration of meniscus surgery Has days of antibiotics to finish. The area in the posterior calf is almost healed over completely.No longer having any redness or significant swelling in the calf. Still has some very minor swelling distally along the ankle. Noting knee pain symptoms posteriorly and posterior medially worse with deep knee bending activities. Patient does want proceed with arthroscopic debridement of that meniscus if possible. Past medical/surgical/medication was history reviewed and updated. ROS: Musculoskeletal: HPI Skin: HPI Neurological: Negative. Respiratory: Negative. Cardiovascular: Negative Endo/Heme/Allergies: Negative. Medications: Current Outpatient Medications: ??? amphetamine-dextroamphetamine 5 MG tablet, Take 1 tablet by mouth 2 (two) times daily., Disp: ,Rfl: ??? cyclobenzaprine 10 MG tablet, Take 1 tablet (10 mg total) by mouth 3 (three) times daily as needed for Muscle Spasms., Disp: 40 tablet, Rfl: 1 ??? escitalopram 10 MG tablet, Take 10 mg by mouth daily., Disp: , Rfl: ??? naproxen 500 MG tablet, Take 1 tablet (500 mg total) by mouth every 12 (twelve) hours as needed., Disp: 60 tablet, Rfl: 1 Allergies: No Known Allergies Medical History: Past Medical History: Diagnosis Date ??? Compartment syndrome (CMS/HCC) Surgical History: Past Surgical History: Procedure Laterality Date ??? FASCIOTOMY,ILIOTIBIAL,OPEN Left Social History: Social History Socioeconomic History ??? Marital status: Single Spouse name: Not on file ??? Number of children: Not on file ??? Years of education: Not on file ??? Highest education level: Not on file Occupational History ??? Not on file Social Needs ??? Financial resource strain: Not on file ??? Food insecurity: Worry: Not on file Inability: Not on file ??? Transportation needs: Medical: Not on file Non-medical: Not on file Tobacco Use ??? Smoking status: Never Smoker ??? Smokeless tobacco: Never Used Substance and Sexual Activity ??? Alcohol use: Yes Comment: occasional ??? Drug use: Never ??? Sexual activity: Not on file Lifestyle ??? Physical activity: Days per week: Not on file Minutes per session: Not on file ??? Stress: Not on file Relationships ??? Social connections: Talks on phone: Not on file Gets together: Not on file Attends oriental orthodox service: Not on file Active member of club or organization: Not on file Attends meetings of clubs or organizations: Not on file Relationship status: Not on file ??? Intimate partner violence: Fear of current or ex partner: Not on file Emotionally abused: Not on file Physically abused: Not on file Forced sexual activity: Not on file Other Topics Concern ??? Not on file Social History Narrative ??? Not on file Family History: No family history on file. VITALS: Filed Vitals: 12/05/19 1555 BP: 136/86 Pulse: 115 Weight: 86.2 kg (190 lb) PE: Physical exam: General: Patient's appearance is normal, well-nourished, well-developed, no apparent distress Neuro psych: Alert and oriented x4, normal voice/speech/tone, normal judgment and mood Skin: No significant rash or erythematous eruption, swelling or evidence of skin infection Neuromuscular: General strength and tone throughout normal gait is normal Musculoskeletal: Right knee: Mild effusion, no redness or rash appreciated. Mild tenderness palpation medial joint line and posterior medially. No lateral joint line tenderness to palpation. Range of motion 0 to 130 degrees. Negative varus valgus stressing. Mallory's equivocal medially. In regards to the skin region there is a well-healed eschar over the area of the furuncle no surrounding erythema minimal induration underneath. No other significant rash. Procedures Diagnoses/Impression: 1. Chronic pain of right knee 2. Internal derangement of right knee 3. Bucket-handle tear of medial meniscus of right knee as current injury, subsequent encounter 4. Furuncle of lower leg Recommendations and Plan: Right knee pain/meniscal tear: Referred over to Dr. Agudelo to schedule initial visit and surgery for that but getting care. Finish off his oral antibiotics this area of infection of the furuncle shoulder be very well healed by then. MADISON MURILLO MD 12/05/2019 documented in this encounter Plan of Treatment Not on file documented as of this encounter Visit Diagnoses Diagnosis Chronic pain of right knee- Primary Internal derangement of right knee Unspecified internal derangement of knee Bucket-handle tear of medial meniscus of right knee as current injury, subsequent encounter Furuncle of lower leg Carbuncle and furuncle of leg, except foot documented in this encounter Care Teams Staff Sonographer Relationship Specialty Start Date End Date Baljeet Doran MD [address] [address] PCP - General 11/24/16 documented as of this encounter
--- OUTSIDE RECORDS SUMMARY | 2024-07-20 15:37 | XMS_ITS | Encounter Summary ---
Author Organization [facility] Address [facility] [place] [address] [place] [address] Care Team Providers Care Car Mover Name Role Phone Baljeet Doran MD Primary Care Provider Reason for Visit * Reason Comments Drug Problem requesting medicatio n to withdraw. drinks 1/5 liquor daily Fall injury to right calf Encounter Details Date Type Department Care Team (Late st Contact Info) Description 01/28/2020 11:00 AM CDT Office Visit [facility] - [place] [address], [address] [place] [address] Baljeet Doran MD [address] [place], [place] [id number] Drug Problem (requesting medication to withdraw. drinks 1/5 liquor daily); Fall (injury to right calf) Social History Tobacco Use Types Packs/Day Years Used Date Smoking Tobacco: Never Smokeless Tobacco: Never Alcohol Use Standard Drinks/Week Comments Yes 0 (1 standard drink = 0.6 oz pur e alcohol) daily 1/5 hard liquor Sex and Gender Information Value Date Recorded Sex Assigned at Not on file Legal Sex Male 12:41 AM CDT Gender Identity Not on file Sexual Orientation Not on file COVID-19 Exposure Response Date Recorded In the last month, have you been in contact with someone who was confirmed or suspected to have Coronavirus / COVID-19? No / Unsure 01/28/2020 10:43 AM CDT documented as of this encounter Last Filed Vital Signs Vital Sign Reading Time Taken Comments Blood Pressure 136/86 01/28/2020 10:56 AM CDT Pulse 76 01/28/2020 10:56 AM CDT Temperature 37 ??C (98.6 ??F) 01/28/2020 10:56 AM CDT Respiratory Rate 16 01/28/2020 10:56 AM CDT Oxygen Saturation 98% 01/28/2020 10:56 AM CDT Inhaled Oxygen Concentration - - Weight 83.5 kg (184 lb) 01/28/2020 10:56 AM CDT Height 177.8 cm (5' 10 ) 01/28/2020 10:56 AM CDT Body Mass Index 26.4 01/28/2020 10:56 AM CDT documented in this encounter Progress Notes * Baljeet Doran MD - 01/28/2020 11:00 AM CDT Images from the original note were not included. OFFICE VISIT Encounter Date: 01/28/2020 Chief Complaint: 39-year-old male presents for Drug Problem (requesting medication to withdraw. drinks 1/5 liquor daily) and Fall (injury to right calf) . HPI Since about last november, he had a girlfriend that is a drinker and he picked up drinking. He has afamily history of alcohol abuse. He wants medication to help with withdrawl symptoms and cravings as well. He is till pretty well functional but is getting worse. He is drinking a fifth of vodka a day about 14-15 shots. He states he otherwise feels good. He also has symptoms of both anxiety and depr ession. He has noted shakes when he stops drinking. He has had a lot of anxiety with panic attacks.He was prescribed alprazolam on 01/16 # [address] Tinajero at [facility] likely a psychiatrist. He states he uses it rarely maybe once a day. He also gets dextroaphetamine 7.5 bid and states he only uses it when he works. This is prescribed by a psychiatrist. Patient Active Problem List Component Date Value Ref Range Status ??? Coronavirus SARS CoV 2 PCR 12/28/2019 NOT DETECTED NOT DETECTED Final Comment: A Not Detected (negative) test result for this test means that SARS- CoV-2 RNA was not present in the specimen above the limit of detection. A negative result does not rule out the possibility of COVID-19 and should not be used as the sole basis for treatment or patient management decisions. If COVID-19 is still suspected, based on exposure [...] providers and patients using the following websites: https://www.[employer].com/home/Covid-19/HCP/QuestIVD/fact- sheet.html https://www.[employer].com/home/Covid-19/Patients/ Quest[employer]/fact-sheet.html This test has been authoriz ed by the FDA under an Emergency Use Authorization (EUA) for use by authorized laboratories. Due to the current public health emergency, [facility] is receiving a high volume of samples [...] including collection of an additional specimen. Methodology: Nucleic Acid Amplification Test (NAAT) includes PCR or TMA Additional information about COVID-19 can be found at the [facility] website: www.[employer]ia[employer]hu.com/Covid19. Test performed at [facility] [id number] [place] [phone] Director: SIVA FRANCIS DO,MPH Review of Systems Constitutional: Negative for chills, fever, malaise/fatigue and weight loss. HENT: Negative for congestion, ear discharge, ear pain, hearing loss, nosebleeds, sinus pain, sore throat and tinnitus. Eyes: Negative for blurred vision, pain, discharge and redness. Respiratory: Negative for cough, hemoptysis, sputum production, shortness of breath and wheezing. Cardiovascular: Negative for chest pain and leg swelling. Gastrointestinal: Negative for abdominal pain, blood in stool, constipation, diarrhea, heartburn, nausea and vomiting. Genitourinary: Negative for dysuria, flank pain, frequency, hematuria and urgency. Musculoskeletal: Negative for back pain, joint pain, myalgias and neck pain. Skin: Negative for itching and rash. Neurological: Negative for dizziness, tingling, tremors, focal weakness, seizures, loss of consciousness and headaches. Endo/Heme/Allergies: Negative for polydipsia. Does not bruise/bleed easily. Psychiatric/Behavioral: Positive for depression and substance abuse (alcohol fifth of vodka per day). Negative for suicidal ideas. The patient is nervous/anxious. The patient does not have insomnia. Patient Active Problem List Diagnosis ??? Hyperlipidemia ??? Epididymal cyst ??? Obesity ??? Testicular mass ??? Chronic pain of right knee ??? Knee effusion, right ??? Furuncle of lower leg ??? Bucket-handle tear of medial meniscus of right knee as current injury, subsequent encounter Past Medical History: Diagnosis Date ??? Anxiety ??? Compartment syndrome (CMS/HCC) Past Surgical History: Procedure Laterality Date ??? AMPUTATION FINGER Left fingertip amp, reattached ??? CARPAL TUNNEL RELEASE Right right and left sides ??? DENTAL PROCEDURE wisdom teeth ??? FASCIOTOMY,ILIOTIBIAL,OPEN Left ??? KNEE SURGERY Family History Problem Relation Name Age of Onset ??? Heart Disease Father Social History Socioeconomic History ??? Marital status: [...] Sexual Activity ??? Alcohol use: Yes Comment: daily 1/5 hard liquor ??? Drug use: Never ??? Sexual activity: Not on file Lifestyle ??? Physical activity: Days per week: Not on file Minutes per session: Not on file ??? Stress: Not on file Relationships ??? Social connections: Talks on phone: Not on file Gets together: Not on file Attends anabaptism service: Not on file Active member of [...] Social History Narrative ??? Not on file There is no immunization history on file for this patient. Current Outpatient Medications Medication Sig Dispense Refill ??? acamprosate EC 333 MG tablet Take 2 tablets (666 mg total) by mouth 3 (three) times daily. 180 tablet 1 ??? aspirin EC 325 MG tablet Take 1 tablet (325 mg total) by mouth daily for 30 days. For blood clot prevention 30 tablet 0 ??? naproxen 500 MG tablet Take 1 tablet (500 mg total) by mouth every 12 (twelve) hours as needed.Take one tab twice daily with food for 7 days. Then take only as needed. 60 tablet 1 ??? sertraline 50 MG tablet Take 1 tablet (50 mg total) by mouth daily. 30 tablet 3 ??? ALPRAZolam 2 MG tablet ??? amphetamine-dextroamphetamine 7.5 MG tablet Take 1 tablet by mouth 2 (two) times daily. No current facility-administered medications for this visit. No Known Allergies Objective: Filed Vitals: 01/28/20 1056 BP: 136/86 Pulse: 76 Resp: 16 Temp: 98.6 ??F (37 ??C) SpO2: 98% Weight: 83.5 kg (184 lb) Height: 5' 10 (1.778 m) Body mass index is 26.4 kg/m??. Physical Exam Constitutional: He is oriented to person, place, and time and well-developed, well-nourished, and in no distress. No distress. HENT: Head: Normocephalic and atraumatic. Eyes: Right eye exhibits no discharge. Left eye exhibits no discharge. Pulmonary/Chest: Effort normal. No respiratory distress. Neurological: He is alert and oriented to person, place, and time. Skin: He is not diaphoretic. Psychiatric: Mood, memory, affect and judgment normal. Nursing note and vitals reviewed. Assessment: Patient Active Problem List Diagnosis ??? Hyperlipidemia ??? Epididymal cyst ??? Obesity ??? Testicular mass ??? Chronic pain of right knee ??? Knee effusion, right ??? Furuncle of lower leg ??? Bucket-handle tear of medial meniscus of right knee as current injury, subsequent encounter Plan: Raffaele was seen today for drug problem and fall. 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 - sertraline 50 MG tablet; Take 1 tablet (50 mg total) by mouth daily. Discussion/Summary: 1. 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 He is already on alprazolam tid PRN. He can use this for shakes or withdrawals. He has no SI/HI, but really wants to stop drinking. He will try to get into group therapy with AA. Follow-up and Dispositions ?? Return in about 4 weeks (around 02/25/2020). BALJEET DORAN MD documented in this encounter Plan of Treatment Not on file documented as of this encounter Visit Diagnoses Diagnosis Alcohol dependence with alcohol-induced anxiety disorder (CMS/HCC HHS/HCC)- Primary Other and unspecified alcohol dependence, unspecified drinking behavior documented in this encounter Care Teams Car Mover Relationship Specialty Start Date End Date Baljeet Doran MD [address] [address] PCP - General 11/24/16 documented as of this encounter
--- OUTSIDE RECORDS SUMMARY | 2024-07-20 15:37 | XMS_ITS | Encounter Summary ---
Author Organization [facility] Address [facility] [facility] [place] [address] [place] [address] Care Team Providers Care Recreation Director Name Role Phone Baljeet Doran MD Primary Care Provider Reason for Visit * Reason Comments Skin Problem Encounter Details Date Type Department Care Team (Late st Contact Info) Description 11/18/2019 4:18 PM CDT - 11/18/2019 4:50 PM CDT Emergency [facility] Emergency [place], [place] [id number] Lisa Maynard PA-C [address] [place] [address] Skin Problem Discharge Disposition: Home or Self Care (Routine [...] have Coronavirus / COVID-19? No / Unsure 11/18/2019 4:40 PM CDT documented as of this encounter Last Filed Vital Signs Vital Sign Reading Time Taken Comments Blood Pressure 149/97 11/18/2019 4:05 PM CDT Pulse 115 11/18/2019 3:58 PM CDT Temperature 36.1 ??C (96.9 ??F) 11/18/2019 3:58 PM CD T Respiratory Rate 18 11/18/2019 3:58 PM CDT Oxygen Saturation 96% 11/18/2019 3:58 PM CDT Inhaled Oxygen Concentration - - Weight 86.6 kg (191 lb) 11/18/2019 3:58 PM CDT Height 177.8 cm (5' 10 ) 11/18/2019 3:58 PM CDT Body Mass Index 27.41 11/18/2019 3:58 PM CDT documented in this encounter Discharge Instructions * Discharge Instructions* Lisa Maynard PA-C - 11/18/2019 4:37 PM CDT Follow up with pcp. Take antibiotics as directed. Warm compresses or soaking under warm water as wediscussed. Return for increasing redness or swelling, fever, vomiting, or any other concerns. * Attachments The following attachments cannot be sent through Care Everywhere. * Cellulitis (Skin Infection) Discharge Instructions, Adult (Lao) * Skin Abscess (Lao) documented in this encounter Medications at Time of Discharge amphetamine-dextr oamphetamine 5 MG tablet Take 1 tablet by mouth 2 (two) times daily. 08/06/2019 12/25/2019 cyclobenzaprine 10 MG tabletIndications :Sore throat Take 1 tablet (10 mg total) by mouth 3 (three) times daily as needed for Muscle Spasms. 40 tablet 1 11/12/2018 12/25/2019 doxycycline hyclate 100 MG capsule Take 1 capsule (100 mg total) by mouth 2 (two) times daily for 10 days. 20 capsule 11/18/2019 11/22/2019 escitalopram 10 MG tablet Take 10 mg by mouth daily. 05/21/2019 12/25/2019 naproxen 500 MG tabletIndications :Sore throat Take 1 tablet (500 mg total) by mouth every 12 (twelve) hours as needed. 60 tablet 1 11/12/2018 12/31/2019 naproxen 500 MG tabletIndications :Chronic pain of right knee,Internal derangement of right knee Take 1 tablet (500 mg total) by mouth 2 (two) times daily. 60 tablet 3 10/25/2019 11/22/2019 documented as of this encounter ED Notes * Lisa Maynard PA-C - 11/18/2019 4:35 PM CDT Images from the original note were not included. Emergency Department Note Chief Complaint Chief Complaint Patient presents with ??? Skin Problem History of Present Illness 39 year old male presents to ED with abscess/cellulitis to right lower leg. Has noticed purulent drainage. States symptoms started approximately 1 wk ago after wearing a knee brace while sweating/working in the heat. Denies fever, chills. Denies n/v. Denies any other complaints. Medical History ALLERGIES: No Known Allergies MEDICATIONS: Prior to Admission medications Medication Sig Start Date End Date Taking? Authorizing Provider doxycycline hyclate 100 MG capsule Take 1 capsule (100 mg total) by mouth 2 (two) times daily for 10 days. 11/18/19 11/28/19 Yes Lisa Maynard PA-C amphetamine-dextroamphetamine 5 MG tablet Take 1 tablet by mouth 2 (two) times daily. 08/06/19 Doc Abstract cyclobenzaprine 10 MG tablet Take 1 tablet (10 mg total) by mouth 3 (three) times daily as needed for Muscle Spasms. 11/12/18 Lyndsey Hogue, DO escitalopram 10 MG tablet Take 10 mg by mouth daily. 05/21/19 Doc Abstract naproxen 500 MG tablet Take 1 tablet (500 mg total) by mouth every 12 (twelve) hours as needed. 11/12/18 Lyndsey Hogue, DO naproxen 500 MG tablet Take 1 tablet (500 mg total) by mouth 2 (two) times daily. 10/25/19 Tate Thomas MD PAST MEDICAL HISTORY: Past Medical History: Diagnosis Date ??? Compartment syndrome (CMS/HCC) PAST SURGICAL HISTORY: Past Surgical History: Procedure Laterality Date ??? FASCIOTOMY,ILIOTIBIAL,OPEN Left FAMILY HISTORY: No family history on file. SOCIAL HISTORY: Social History Tobacco Use ??? Smoking status: Never Smoker ??? Smokeless tobacco: Never Used Substance Use Topics ??? Alcohol use: Yes Comment: occasional ??? Drug use: Never Review of Systems Review of Systems Constitutional: Negative. Negative for fever. HENT: Negative. Eyes: Negative. Respiratory: Negative. Negative for chest tightness and shortness of breath. Cardiovascular: Negative. Negative for chest pain and leg swelling. Gastrointestinal: Negative. Negative for abdominal pain, diarrhea and vomiting. Genitourinary: Negative. Musculoskeletal: Negative. Negative for back pain, neck pain and neck stiffness. Skin: Positive for rash. Neurological: Negative. Negative for headaches. Physical Exam Filed Vitals: 11/18/19 1558 11/18/19 1605 BP: (!) 149/97 Pulse: 115 Resp: 18 Temp: 96.9 ??F (36.1 ??C) TempSrc: Oral SpO2: 96% Weight: 86.6 kg (191 lb) Height: 5' 10 (1.778 m) Physical Exam Constitutional: He is oriented to person, place, and time. He appears well- developed and well-nourished. No distress. Well appearing HENT: Head: Normocephalic and atraumatic. Eyes: Pupils are equal, round, and reactive to light. Conjunctivae and EOM are normal. Neck: Normal range of motion. Neck supple. Cardiovascular: Normal rate, regular rhythm and normal heart sounds. Pulmonary/Chest: Effort normal and breath sounds normal. No respiratory distress. Musculoskeletal: Normal range of motion. Legs: 4x3 cm area of erythema, warmth and induration Small opening in the center that is draining purulent fluid No erythematous streaking No tissue necrosis No large area of fluctuance that would indicate need for I and D No involvement of joint 2+ pedal pulses and sensation intact in extremity Ambulates without difficulty Compartments soft Neurological: He is alert and oriented to person, place, and time. Skin: Skin is warm and dry. Psychiatric: He has a normal mood and affect. His behavior is normal. Nursing note and vitals reviewed. Diagnostic Studies / Procedures ELECTROCARDIOGRAMS: No results found for this visit on 11/18/19. LABORATORY STUDIES: No results found for this visit on 11/18/19. IMAGING STUDIES No orders to display ED Course / Medical Decision Making Triage notes and available nursing notes reviewed. Pertinent Labs & Imaging studies reviewed (See chart for details). ED Course as of November 17 1646 Mon November 18, 2019 1639 I rechecked pulse and it was 97 [NB] 1644 Pt with abscess/cellulitis to right lower leg. Already open and draining purulent fluid. No large area of fluctuance to indicate need for I and D. Will dc on Doxy to follow up with pcp. Discussed warm compresses. Discussed return precautions in detail. Pt comfortable with plan. [NB] ED Course User Index [NB] Lisa Maynard PA-C I have discussed today's findings with the patient/family and provided information regarding the likely diagnosis. I believe at this time that the patient has no medical emergency and is appropriate for outpatient management. The patient/family has been given information regarding their treatment, follow up and concerning symptoms for which they should seek urgent or emergent attention; all questions were answered. I have expressed the importance of seeking attention should there be any new, orworsening symptoms or persistence of their condition. The patient is stable at discharge and has verbalized understanding of these instructions. Clinical Impression Cellulitis (Primary) Medications - No data to display Current Discharge Medication List START taking these medications Details doxycycline hyclate 100 MG capsule Take 1 capsule (100 mg total) by mouth 2 (two) times daily for 10 days. Qty: 20 capsule, Refills: 0 Class: Print Pharmacy: [address] [facility] (Ph #: [phone]) Follow-Up: No follow-up provider specified. Disposition: Discharge Lisa Maynard PA-C 11/18/2019 Lisa Maynard PA-C 11/18/19 1647 Cosigned by Tristin Sweeney MD at 11/18/2019 7:02 PM CDT * Sae Fontenot RN - 11/18/2019 3:58 PM CDT Pt ambulatory to triage with complaint of raised, painful, draining area to right posterior lower leg. Notes pain and small amount of purulent drainage. Pt denies NVD, fever, cough, or sore throat. documented in this encounter Plan of Treatment Not on file documented as of this encounter Visit Diagnoses Diagnosis Cellulitis- Primary Cellulitis and abscess of unspecified site documented in this encounter Care Teams Recreation Director Relationship Specialty Start Date End Date Baljeet Doran MD [address] [id number] PCP - General 11/24/16 documented as of this encounter
--- OUTSIDE RECORDS SUMMARY | 2024-07-20 15:37 | XMS_ITS | Encounter Summary ---
Author Organization [facility] Address [facility] [place] [address] [place] [address] Care Team Providers Care Manager Of Pharmacy Name Role Phone Baljeet Doran MD Primary Care Provider Reason for Visit * Auth/Cert Specialty Diagnoses / Procedures Referred By Contac t Referred To Contact Diagnoses RIGHT KNEE MEDIAL MENSICUS TEAR [phone] Procedures RIGHT KNEE ARTHROSCOPIC PARTIAL MEDIAL MENISECTOMY Referral ID Status Reason Start Date Expiration Date Visits Re quested Visits Authorized [id number] 1 1 Encounter Details Date Type Department Care Team (Late st Contact Info) Description 12/31/2019 1:02 PM CDT Anesthesia Event [facility] [place] [address] Tangela Pope MD Jackson, Samantha Rae, JOHN [address] [place] [address] Anesthesia Record Procedure Summary Procedure Name Responsible Anesthesiologist Anesthesia Start Time Anesthesia Stop Time RIGHT KNEE ARTHROSCOPIC PARTIAL MEDIAL MENISECTOMY (Right: Knee) Tangela Pope MD 12/31/19 1302 12/31/19 1458 Events Date Time Event Comment 12/31/2019 1205 1205 AN Anesthesia Prepped 1208 AN LAND ACQUISITION MANAGER Prepped 1302 An Start Patient ID and consent checked and patient reassessed. 1302 An Start Data 1304 Preoxygenation 1306 An Induction 1307 An Intubation 1308 Anesthesia Ready 1329 an do now Procedure start . 1441 An Emergence 1442 An Extubation 1442 Face Mask Applied 1451 an stop data 1456 Post Anesthetic Care Handoff I completed my handoff to the receiving nurse during which we: 1. Identified the patient 2. Identified the responsible provider 3. Reviewed the pertinent medical history 4. Discussed the surgical course 5. Reviewed intra-op anesthesia management and issues during anesthesia 6. Set expectations for post-procedure period 7. Allowed opportunity for questions and acknowledgement of understanding. 1458 An Stop Meds Name Total midazolam 2 mg/2 mL injection 2 mg fentaNYL (SUBLIMAZE) 100 mcg/2 mL inject ion 100 mcg lidocaine (PF) (XYLOCAINE) 2% injection 100 mg propofol (DIPRIVAN) 200 mg/20 mL injecti on 200 mg ceFAZolin (ANCEF) 2 g in sodium chloride 0.9 % 100 mL IVPB 2 g dexamethasone (DECADRON) 4 mg/mL injecti on 4 mg glycopyrrolate (ROBINUL) injection 0.2 m g hydrALAZINE 20 mg/mL injection 5 mg metoprolol tartrate (LOPRESSOR) 1 mg/mL injection 2 mg ketorolac (TORADOL) 30 mg/mL injection 3 0 mg lactated ringers infusion 1,200 mL * Agents Name O2 N2O Air Inspired Sevoflurane Sevoflurane Ancillary O2 * Blood No blood administrations on file. Lines, Drains, and Airways Type Details Placement Removal Peripheral IV Placement Date: 12/31/19; Placement Time: 1200; Placed Outside of This Facility?: No; Size: 18 G; Orientation: Left; Location: Forearm; Site Prep: Chlorhexidine; Local Anesthetic: None; Insertion attempts: 1; Removal Date: 12/31/19; Removal Time: 1738; Removal Reason: Patient Discharged 12/31/19 1200 by Andi Kiser RN 12/31/19 1738 by Phyllis Jaime RN Surgical/Incision 12/31/19; 133; Surgical Wound; Knee; Right; 2 trocar sites, suture, xeroform, 4x4, webril, carl wraps; 12/31/19; 194212/31/19 133 by Enrique Gross RN 12/31/191942 by Automatic Discharge Provider documented in this encounter Social History Tobacco Use Types Packs/Day Years [...] have Coronavirus / COVID-19? No / Unsure 12/31/2019 11:25 AM CDT documented as of this encounter OR Notes * Anesthesia Postprocedure Evaluation - Tangela Pope MD - 12/31/2019 6:32 PM CDT Anesthesia Post-op Note Raffaele Valenzuela Procedure(s): RIGHT KNEE ARTHROSCOPIC PARTIAL MEDIAL MENISECTOMY (Right Knee) Anesthesia type: general Vitals: 12/31/19 172 BP: (!) 145/93 Vitals: 12/31/19 1720 Pulse: 98 Vitals: 12/31/191719 Resp: 18 Vitals: 12/31/191719 Temp: 36.4 ??C Vitals: 12/31/19 172 SpO2: 98% Patient Location: Phase II/Outpatient Level of Consciousness: awake, oriented and alert Pain Management: adequate analgesia Airway Patency: patent Respiratory Status: nonlabored ventilation, acceptable and room air Cardiovascular Status: acceptable and hemodynamically stable Post-Op Nausea: none Postoperative Hydration: euvolemic Complications: no anesthesia complication Comments: Pt evaluated prior to discharge from perioperative care * Anesthesia Postprocedure Evaluation - Tangela Pope MD - 12/31/2019 6:31 PM CDT Anesthesia Post-op Note Raffaele Valenzuela Procedure(s): RIGHT KNEE ARTHROSCOPIC PARTIAL MEDIAL MENISECTOMY (Right Knee) Anesthesia type: general Vitals: 12/31/19 1720 BP: (!) 145/93 Vitals: 12/31/19 1720 Pulse: 98 Vitals: 12/31/19 1720 Resp: 18 Vitals: 12/31/19 1720 Temp: 36.4 ??C Vitals: 12/31/19 172 SpO2: 98% Patient Location: PACU Level of Consciousness: awake, alert and oriented Pain Management: adequate analgesia Airway Patency: patent Respiratory Status: acceptable and room air Cardiovascular Status: acceptable Post-Op Nausea: none Postoperative Hydration: euvolemic Complications: no anesthesia complication Comments: Pt evaluated prior to discharge from perioperative care * Anesthesia Preprocedure Evaluation - Tangela Pope MD - 12/31/2019 12:05 PM CDT Anesthesia ROS/MED History Reviewed: Patient summary , Nursing notes , ECG, Family history anesthesia, Anesthesia history , Medications , Labs , Images/Studies Pre-Anesthetic State: alert, awake and responds appropriately no history of anesthetic complications Pulmonary neg pulmonary ROS Cardiovascular neg cardio ROS Exercise tolerance:good Neuro/Psych (+) psychiatric problem, (anxiety) GI/Hepatic/Renal neg GI/hepatic/renal ROS Endo/Other neg endo/other ROS GENERAL COMMENTS No Known Allergies Past Medical History: No date: Anxiety No date: Compartment syndrome (CMS/HCC) Past Surgical History: No date: AMPUTATION FINGER; Left Comment: fingertip amp, reattached No date: CARPAL TUNNEL RELEASE; Right Comment: right and left sides No date: DENTAL PROCEDURE Comment: wisdom teeth No date: FASCIOTOMY,ILIOTIBIAL,OPEN; Left Physical Evaluation Airway Mallampati: I TM Distance: >3 FB Neck ROM: normal Dental (upper dentures) Pulmonary Pulmonary exam normal Cardiovascular Cardiovascular exam normal Other findings: Blood pressure (!) 138/98, pulse 87, temperature 36.8 ??C, temperature source Oral,resp. rate 16, height 5' 10 (1.778 m), weight 83.3 kg (183 lb 10.3 oz), SpO2 98 %. No results for input(s): WBC, RBC, HGB, HCT, PLT, NA, K, CL, CO2, AGAP, BUN, CR, BUNCREATININ, GFRNON, GFR, GLU, CA in the last 72 hours. Anesthesia Plan ASA 2 Intravenous Induction Anesthesia type: general Discussed potential risks of General Anesthesia including but not limited to corneal abrasion, visual impairment or visual loss, mouth injury, dental damage, sore throat, hoarseness, esophageal injury, awareness under anesthesia, nerve injury due to positioning, aspiration, pneumonia, stroke, cardiac event, adverse drug reactions and . GA with LMA Informed Consent Anesthetic plan and risks discussed with patient of whom consent was obtained. . documented in this encounter Plan of Treatment Not on file documented as of this encounter Visit Diagnoses Not on filedocumented in this encounter Administered Medications Inactive Administered Medications - up to 3 most recent administrations Medication Order MAR Action Action Date Dose Rate Site ceFAZolin (ANCEF) 2 g in sodium chloride 0.9 % 100 mL IVPB 2 g, Intravenous, at 200 mL/hr, yard caller to O.R., 1 dose, First dose on Mon12/31/19 at 1145, Pre-OpIndications:Bucket-handle tear of medial meniscus of right knee as current injury, subsequent encounter New Bag 12/31/2019 1:08 PM CDT 2 g dexamethasone (DECADRON) injection PRN, Starting on Mon12/31/19 at 1308, Until Mon12/31/19 at 1458, Anesthesia Intra-Op Given 12/31/2019 1:08 PM CDT 4 mg fentaNYL (SUBLIMAZE) injection Intravenous, PRN, Starting on Mon12/31/19 at 1327, Until Mon12/31/19 at 1458, Anesthesia Intra-Op Given 12/31/2019 1:47 PM CDT 25 mcg Given 12/31/2019 1:41 PM CDT 25 mcg Given 12/31/2019 1:27 PM CDT 50 mcg glycopyrrolate (ROBINUL) injection PRN, Starting on Mon12/31/19 at 1335, Until Mon12/31/19 at 1458, Anesthesia Intra-Op Given 12/31/2019 1:35 PM CDT 0.2 mg hydrALAZINE (APRESOLINE) injection PRN, Starting on Mon12/31/19 at 1355, Until Mon12/31/19 at 1458, Anesthesia Intra-Op Given 12/31/2019 2:08 PM CDT 2.5 mg Given 12/31/2019 1:55 PM CDT 2.5 mg ketorolac (TORADOL) injection PRN, Starting on Mon12/31/19 at 1437, Until Mon12/31/19 at 1458, Anesthesia Intra-Op Given 12/31/2019 2:37 PM CDT 30 mg lactated ringers infusion at 10 mL/hr, Intravenous, Continuous, Starting on Mon12/31/19 at 1145, Until Mon12/31/19 at 1948, Infuse at TKO rate, Pre-Op New Bag 12/31/2019 2:33 PM CDT New Bag 12/31/2019 1:00 PM CDT New Bag 12/31/2019 12:11 PM CDT 10 mL/hr lidocaine (PF) (XYLOCAINE) 2 % injection Intravenous, PRN, Starting on Mon12/31/19 at 1306, Until Mon12/31/19 at 1458, Anesthesia Intra-Op Given 12/31/2019 1:06 PM CDT 100 mg metoprolol tartrate (LOPRESSOR) injection PRN, Starting on Mon12/31/19 at 1411, Until Mon12/31/19 at 1458, Anesthesia Intra-Op Given 12/31/2019 2:16 PM CDT 1 m g Given 12/31/2019 2:11 PM CDT 1 mg midazolam (VERSED) injection Intravenous, PRN, Starting on Mon12/31/19 at 1302, Until Mon12/31/19 at 1458, Anesthesia Intra-Op Given 12/31/2019 1:02 PM CDT 2 mg propofol (DIPRIVAN) IV bolus Intravenous, PRN, Starting on Mon12/31/19 at 1306, Until Mon12/31/19 at 1458, Anesthesia Intra-Op Given 12/31/2019 1:06 PM CDT 200 mg documented in this encounter Care Teams Manager Of Pharmacy Relationship Specialty Start Date End Date Baljeet Doran MD [address] [address] PCP - General 11/24/16 documented as of this encounter
--- OUTSIDE RECORDS SUMMARY | 2024-07-20 15:37 | XMS_ITS | Encounter Summary ---
Author Organization [facility] Address [facility] [place] [address] [place] [address] Care Team Providers Care Apprentice Painter Neckties Name Role Phone Baljeet Doran MD Primary Care Provider Encounter Details Date Type Department Care Team (Latest Contact Info) Description 12/05/2016 Abstract [facility] Medical [facility] Social History Tobacco Use Types Packs/Day Years Used Date Smoking Tobacco: Never Assessed Sex and Gender Information Value Date Recorded Sex Assigned at Not on file Legal Sex Male 12:41 AM CDT Gender Identity Not on file Sexual Orientation Not on file documented as of this encounter Progress Notes * Generic Conversion MD Joe - 12/05/2016 2:45 PM CDT Message Recorded as Task Date: 11/24/2016 12:18 PM, Created By: Baljeet Doran Task Name: Call Patient with results Assigned To: [facility] - NURSES Regarding Patient: Raffaele Valenzuela, Status: In Progress Comment: Baljeet Doran - 24 Nov 2016 12:18 PM Patient normal X-ray of the back, continue with current medications Amy Phillips - 25 Nov 2016 6:50 AM TASK REASSIGNED: Previously Assigned To Baljeet Doran Dawn - 25 Nov 2016 3:02 PM TASK IN PROGRESS Message: 3rd call to patient to discuss Xray results and doctor's recommendations. NA, unable to leave a message because voicemail has not been set up. Will try again later. Phoebe Signatures Electronically signed by : Amy Phillips, ; Dec 05 2016 2:46PM UPHOLSTERED GOODS CRAFTER (Author) documented in this encounter Plan of Treatment Not on file documented as of this encounter Visit Diagnoses Not on filedocumented in this encounter Care Teams Apprentice Painter Neckties Relationship Specialty Start Date End Date Baljeet Doran MD [address] [facility] [address] [place] [address] PCP - General 11/24/16 documented as of this encounter
--- OUTSIDE RECORDS SUMMARY | 2024-07-20 15:37 | XMS_ITS | Encounter Summary ---
Author Organization [facility] Address [facility] [facility] [place] [address] [place] [address] Care Team Providers Care Chronic Specialist Name Role Phone Baljeet Doran MD Primary Care Provider Encounter Details Date Type Department Care Team (Latest Contact Info) Description 10/25/2019 Travel Social History Tobacco Use Types Packs/Day [...] have Coronavirus / COVID-19? No / Unsure 10/25/2019 9:11 AM CDT documented as of this encounter Plan of Treatment Not on file documented as of this encounter Visit Diagnoses Not on filedocumented in this encounter Care Teams Chronic Specialist Relationship Specialty Start Date End Date Baljeet Doran MD [address] [facility] [address] [place] [address] PCP - General 11/24/16 documented as of this encounter
--- OUTSIDE RECORDS SUMMARY | 2024-07-20 15:37 | XMS_ITS | Encounter Summary ---
Author Organization [facility] Address [facility]6 [facility] [place] [address] [place] [address] Care Team Providers Care Buffet Manager Name Role Phone Baljeet Doran MD Primary Care Provider Encounter Details Date Type Department Care Team (Latest Contact Info) Description 11/28/2016 Abstract [facility] Medical Group Social History Tobacco Use Types Packs/Day Years Used Date Smoking Tobacco: Never Assessed Sex and Gender Information Value Date Recorded Sex Assigned at Not on file Legal Sex Male 12:41 AM CDT Gender Identity Not on file Sexual Orientation Not on file documented as of this encounter Progress Notes * Sarah Pires MD - 11/28/2016 10:47 AM CDT Message Recorded as Task Date: 11/24/2016 12:18 PM, Created By: Baljeet Doran Task Name: Call Patient with results Assigned To: [facility] - NURSES Regarding Patient: Raffaele Valenzuela, Status: In Progress Comment: Baljeet Doran - 24 Nov 2016 12:18 PM Patient normal X-ray of the back, continue with current medications Amy Phillips - 25 Nov 2016 6:50 AM TASK REASSIGNED: Previously Assigned To Baljeet Doran Dawn - 25 Nov 2016 3:02 PM TASK IN PROGRESS Message: 2ND call to patient to discuss Xray results and doctor's recommendations. NA, unable to leave a message because voicemail has not been set up. Will try again later. VaibhavN Signatures Electronically signed by : Amy Phillips, ; Nov 28 2016 10:49AM LIBRARY MEDIA TECHNICIAN (Author) documented in this encounter Plan of Treatment Not on file documented as of this encounter Visit Diagnoses Not on filedocumented in this encounter Care Teams Buffet Manager Relationship Specialty Start Date End Date Baljeet Doran MD [address] [address] PCP - General 11/24/16 documented as of this encounter
--- OUTSIDE RECORDS SUMMARY | 2024-07-20 15:37 | XMS_ITS | Encounter Summary ---
Author Organization [facility] Address [facility]6 [facility] [place] [address] [place] [address] Care Team Providers Care Fluorescent Lighting Model Maker Name Role Phone Baljeet Doran MD Primary Care Provider Encounter Details Date Type Department Care Team (Latest Contact Info) Description 01/30/2020 Scan HEALTH INFO SRVCS Scanned, Documents Social [...] on filedocumented in this encounter Care Teams Fluorescent Lighting Model Maker Relationship Specialty Start Date End Date Baljeet Doran MD [address] [facility] [address] [place] [address] PCP - General 11/24/16 documented as of this encounter
--- OUTSIDE RECORDS SUMMARY | 2024-07-20 15:37 | XMS_ITS | Encounter Summary ---
Author Organization [facility] Address [facility]6 [facility] [place] [address] [place] [address] Care Team Providers Care Sound Engineer Audio Control Name Role Phone Baljeet Doran MD Primary Care Provider Reason for Referral * Imaging (Routine) - Closed Specialty Diagnoses / Procedures Referred By Keny kunz Referred To Contact RADIOLOGY Diagnoses Chronic pain of right knee Internal derangement of right knee Knee effusion, right Procedures MRI KNEE RT WO Tate Moreno MD Phone: tel: fax: Referral ID Status Reason Start Date Expiration Date Visits Re quested Visits Authorized [id number] Closed 10/29/2019 11/27/2019 1 1 Reason for Visit * Imaging (Routine) - Closed Specialty Diagnoses / Procedures Referred By Keny kunz Referred To Contact RADIOLOGY Diagnoses Chronic pain of right knee Internal derangement of right knee Knee effusion, right Procedures MRI KNEE RT WO Tate Moreno MD Phone: tel: fax: Referral ID Status Reason Start Date Expiration Date Visits Re quested Visits Authorized [id number] Closed 10/29/2019 11/27/2019 1 1 Encounter Details Date Type Department Care Team (Latest Contact Info) Description 11/01/2019 4:31 PM CDT - 11/01/2019 11:59 PM CDT Hospital Encounter [facility] MRI [address] [place] [address] Tate Thomas MD [address] [place] [address] Discharge Disposition: Home or Self Care (Routine [...] have Coronavirus / COVID-19? No / Unsure 11/01/2019 4:29 PM CDT documented as of this encounter Medications at Time of Discharge amphetamine-dextro amphetamine 5 MG tablet Take 1 tablet by mouth 2 (two) times daily. 08/06/2019 12/25/2019 cyclobenzaprine 10 MG tabletIndications: Sore throat Take 1 tablet (10 mg total) by mouth 3 (three) times daily as needed for Muscle Spasms. 40 tablet 1 11/12/2018 12/25/2019 escitalopram 10 MG tablet Take 10 mg by mouth daily. 05/21/2019 12/25/2019 naproxen 500 MG tabletIndications: Sore throat Take 1 tablet (500 mg total) by mouth every 12 (twelve) hours as needed. 60 tablet 1 11/12/2018 12/31/2019 naproxen 500 MG tabletIndications: Chronic pain of right knee,Internal derangement of right knee Take 1 tablet (500 mg total) by mouth 2 (two) times daily. 60 tablet 3 10/25/2019 11/22/2019 documented as of this encounter Plan of Treatment Not on file documented as of this encounter Procedures Procedure Name Priority Date/Time Associated Diagnosis Comments MRI KNEE RT WO CON Routine 11/01/2019 5: 35 PM CDT Chronic pain of right knee Internal derangement of right knee Knee effusion, right documented in this encounter Results * MRI KNEE RT WO CON (11/01/2019 5:35 PM CDT) Anatomical Region Laterality Modality Knee Magnetic Resonan ce 11/01/2019 5:42 PM CDT Impressions 11/01/2019 5:46 PM CDT IMPRESSION: Bucket-handle tear of the medial meniscus. Interpreted By: Rick Huynh MD, 11/01/2019 5:42 PM Narrative 11/01/2019 5:46 PM CDT EXAMINATION: MRI KNEE RT WO CON HISTORY: Medial knee pain and popping DATE: 11/01/2019 5:06 PM COMPARISON: X-ray 10/25/2019 TECHNIQUE: Multisequence multiplanar unenhanced imaging FINDINGS: Quadriceps and patellar tendons are intact. ??Mild edema in the suprapatellar fat pad. ??Patellofemoral ligaments are intact. Cruciate ligaments are intact. ??Collateral ligaments are intact. ??There is a bucket-handle tear of the medial meniscus with displaced meniscal tissue flipped into the central aspect of the medial compartment. ??Lateral meniscus is intact. Articular cartilage appears grossly unremarkable. ??No fracture. ??Miniscule amount bone marrow edema in the medial tibial plateau near the area of meniscal tear. ??Small joint effusion. ??No Hu's cyst. ??No evidence of muscle strain. ??Popliteus tendon is intact. Procedure Note Rick Huynh MD - 11/01/2019 EXAMINATION: MRI KNEE RT WO CON HISTORY: Medial knee pain and popping DATE: 11/01/2019 5:06 PM COMPARISON: X-ray 10/25/2019 TECHNIQUE: Multisequence multiplanar unenhanced imaging FINDINGS: Quadriceps and patellar tendons are intact. Mild edema in thesuprapatellar fat pad. Patellofemoral ligaments are intact. Cruciate ligaments are intact. Collateral ligaments are intact. There aditya bucket-handle tear of the medial meniscus with displaced meniscal tissueflipped into the central aspect of the medial compartment. Lateralmeniscus is intact. Articular cartilage appears grossly unremarkable. No fracture. Minisculeamount bone marrow edema in the medial tibial plateau near the area ofmeniscal tear. Small joint effusion. No Hu's cyst. No evidence ofmuscle strain. Popliteus tendon is intact. IMPRESSION: Bucket-handle tear of the medial meniscus. Interpreted By: Rick Huynh MD, 11/01/2019 5:42 PM Tate Thomas MD MRI Final Result documented in this encounter Visit Diagnoses Diagnosis Chronic pain of right knee Internal derangement of right knee Unspecified internal derangement of knee Knee effusion, right Effusion of lower leg joint documented in this encounter Care Teams Sound Engineer Audio Control Relationship Specialty Start Date End Date Baljeet Doran MD [address] [id number] PCP - General 11/24/16 documented as of this encounter
--- OUTSIDE RECORDS SUMMARY | 2024-07-20 15:37 | XMS_ITS | Encounter Summary ---
Author Organization [facility] Address [facility]6 [facility] [place] [address] [place] [address] Care Team Providers Care Information Assurance Manager Name Role Phone Baljeet Doran MD Primary Care Provider Reason for Visit * Reason Onset Date Comments Question 01/28/2020 Questioning medi cation prescribed by PCP Encounter Details Date Type Department Care Team (Late st Contact Info) Description 01/28/2020 Telephone [facility] Medical Group Family Medicine - [place] [address] [place] [address] Baljeet Doran MD [address] [facility] [address] [place], [place] [id number] Question (Questioning medication prescribed by PCP) Social History Tobacco Use Types Packs/Day Years [...] AM CDT documented as of this encounter Progress Notes * Baljeet Doran MD - 01/30/2020 3:25 PM CDT Pt's number is not reachable. I am no even sure what this means. * Baljeet Doran MD - 01/28/2020 5:54 PM CDT Very curious that SHE is seeking specific types of medication, possibly another benzodiazepine. I do not provide the monthly injections as this is typically by an parts counter specialist. I discussed using librium which would be more appropriate once he has finished the alprazolam that he filled recently. It would be very dangerous to give large numbers of differing benzodiazepines especially if still actively drinking. Pt's mother should not be allowed to treat the staff this way in any regard. Iwill try to speak to the patient about this. I had also recommended group therapy/counseling which he declined. Also recommended starting AA and considering inpatient detox. * Estela Diaz RN - 01/28/2020 4:08 PM CDT Pts mother who is NOT listed on ZANA (pt in background of call saying it is ok to speak with mother)is calling the office upset because pt was seen in office today by PCP. Pts mother was transferred to al after yelling at answering staff after being given instruction by PCP. Pts mother is questioning why her son was given the medication he was given. She states her niece gets other medication from Dr. Doran. Advised that pt needs to try the medication PCP has prescribed per PCP instructions and if pt is not well controlled, would need to seek care at the hospital to be admitted for further tx of alcohol withdrawal. Pts mother began to yell at me on the phone stating that this is fucking ridiculous and that we are all fucking useless and terminated phone call. Will notify PCP. documented in this encounter Plan of Treatment Not on file documented as of this encounter Visit Diagnoses Not on filedocumented in this encounter Care Teams Information Assurance Manager Relationship Specialty Start Date End Date Baljeet Doran MD [address] [facility] [address] [place] [address] PCP - General 11/24/16 documented as of this encounter
--- OUTSIDE RECORDS SUMMARY | 2024-07-20 15:37 | XMS_ITS | Encounter Summary ---
Author Organization [facility] Address [facility]ly [facility] [place] [address] [place] [address] Care Team Providers Care Equipment Tech Name Role Phone Baljeet Doran MD Primary Care Provider Reason for Visit * Auth/Cert Specialty Diagnoses / Procedures Referred By Contac t Referred To Contact Diagnoses RIGHT KNEE MEDIAL MENSICUS TEAR [id number] Procedures RIGHT KNEE ARTHROSCOPIC PARTIAL MEDIAL MENISECTOMY Referral ID Status Reason Start Date Expiration Date Visits Re quested Visits Authorized [id number] 1 1 Encounter Details Date Type Department Care Team (Late st Contact Info) Description 12/31/2019 1:08 PM CDT - 12/31/2019 3:[address] [facility] [address] Delonte Parker MD [address] [place] [address] RIGHT KNEE ARTHROSCOPIC PARTIAL MEDIAL MENISECTOMY Surgery Details Date/Time Status Location OR Service Patient Class Case Class Case Type Trauma Case? 12/31/2019 1:08 PM Posted [facility] OR OR 3 Orthopedics Short Stay/Outpat ient Surgery E - Elective No Panel 1 Procedure LRB Anes Op Region Wound Class Comments RIGHT KNEE ARTHROSCOPIC PART IAL MEDIAL MENISECTOMY Right General Knee Clean Surgeon Surgeon Role Service Panel Delonte Parker MD Primary Orthopedics 1 Case Notes SCHED WITH MINOR ON 12/25/19 [facility] PHONE ASSESS Special Needs MITEK documented in this encounter Social History Tobacco [...] Sign Reading Time Taken Comments Blood Pressure 122/91 12/31/2019 3:30 PM CDT Pulse 93 12/31/2019 3:30 PM CDT Temperature 36.6 ??C (97.9 ??F) 12/31/2019 2:54 PM CD T Respiratory Rate 16 12/31/2019 3:30 PM CDT Oxygen Saturation 99% 12/31/2019 3:30 PM CDT Inhaled Oxygen Concentration - - Weight 83.3 kg (183 lb 10.3 oz) 020 12:00 PM CDT Height 177.8 cm (5' 10 ) 12/31/2019 12: 00 PM CDT Body Mass Index 26.35 12/31/2019 12:00 PM CDT documented in this encounter Discharge Instructions * Discharge Instructions* Kajal De La Cruz RN - 12/31/2019 3:42 PM CDT Weightbearing as tolerated on your surgical leg, using crutches for support. Work on gently straightening and bending your knee during the initial week following surgery. Apply ice to the knee for 20minutes at a time at least every 2 hours while awake for the first 48 hours. After that, use ice asneeded. Never apply ice directly to the skin. Always use an FLAVIO wrap or washcloth to protect the skin. Keep dressing in place for the first 3 days. On day 3 after surgery, okay to remove bandages and replace with dry gauze/FLAVIO wrap if you wish. Do not allow the wounds to get wet for the first 5 days. After 5 days, if there is no drainage from the incisions, it is okay to shower and let water run over the incisions. Do not submerge under water. Call for fever over 100, uncontrolled pain, difficultybreathing, chest pain, increasing drainage, or other problems. Use the narcotic pain medication as prescribed. While taking this medication, also take antiinflammatories as prescribed, usually on a scheduled basis for the first few days. If you cannot take antiinflammatories due to other medical problems or prior side effects, tell your surgeon. After the first few days, the amount and frequency of narcotic pain medications required should decrease significantly. Because you had anesthesia, we suggest these things: -Avoid greasy, fried or spicy foods for today -Take medication with food -Take an over the counter stool softener if needed for constipation while taking pain medication -Have a responsible adult stay with you the rest of today and overnight -No alcohol, driving, making major decision or operating machinery for 24 hours or while taking pain medication If you have chest pain, shortness of breath, calf pain, excessive bleeding or drainage, if you cannot hold down anything to eat or drink, or if you cannot urinate, please call 911 or go to the nearest emergency room. If you have fever, pain not controlled by your medication, signs of infection such as redness or discharge or swelling at the site, or any other questions or concerns, please call your surgeon. * Attachments The following attachments cannot be sent through Care Everywhere. * Hydrocodone and Acetaminophen, ADULT (Samoan) * Docusate, ADULT (Samoan) * Aspirin, ADULT (Samoan) * Naproxen, ADULT (Samoan) * General Anesthesia Discharge Instructions (Samoan) * Meniscal Tear Discharge Instructions (Samoan) * CRUTCH MOBILITY: PARTIAL WEIGHT BEARING (TRISTANIAN) * Going Up and Down Curbs or Stairs With a Walker or Crutches (Samoan) documented in this encounter Medications at Time [...] 7 Day Supply 15 tablet 12/31/2019 0 documented as of this encounter H&P Notes * Delonte Parker MD - 12/31/2019 12:55 PM CDT HISTORY AND PHYSICAL INTERVAL NOTE: I have reviewed Raffaele Valenzuela History & Physical which was performed within the past 30 days. After examining Raffaele Valenzuela, no change has occurred in the patient's condition since the H&P was completed. Informed Consent Discussion: Potential benefits, risks, and side effects of the patient's procedure/surgery; the likelihood of the patient achieving his or her goals; and any potential problems that might occur during recuperation were discussed with the patient/family/personal utility sales representative. Reasonable alternatives to the patient's proposed procedure/surgery including benefits, risks, and sideeffects related to the alternatives and the risks related to not receiving the proposed care were also discussed with the patient/family/personal utility sales representative. Questions were answered and the patient/family/personal utility sales representative verbalized understanding and desires to proceed. Source Note - Delonte Parker MD - 12/25/2019 1:20 PM CDT Images from the original note were not included. Office Visit Reason for Visit: New Patient (right knee) History of Present Illness: He is here for follow-up of his right knee. He says he has had problems since the spring 2018. 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 Eventuallygot into see Dr. Thomas. MRI revealed a bucket-handle medial meniscus tear displaced into the notch.An injection help with his pain temporarily. However his pain now has come back as bad as ever and evaluation pretty consistently. A knee brace helped to some extent but unfortunately he developed a abscess underneath that. This treated with antibiotics and has cleared up. He describes catching and locking of the knee. The majority of his symptoms are anterior and medial. He says his sleep is affected and that he notices some swelling within the knee as well. Vitals: Filed Vitals: 12/25/19 1342 12/25/19 1343 BP: (!) 142/87 127/66 Pulse: 89 Temp: 98.1 ??F (36.7 ??C) SpO2: 98% Weight: 83.1 kg (183 lb 1.6 oz) Height: 5' 10 (1.778 m) Physical Exam: Physical Exam Constitutional: He is oriented to person, place, and time. He appears well- developed and well-nourished. HENT: Head: Normocephalic. Eyes: EOM are normal. Cardiovascular: Intact distal pulses. Pulmonary/Chest: Effort normal. No respiratory distress. Neurological: He is alert and oriented to person, place, and time. Psychiatric: He has a normal mood and affect. Ortho: He can walk with a mild limp favoring the right knee. Range of motion from few degrees short of full extension to about 115 degrees flexion. No instability with varus or valgus stress. No instabilitywith Moriah's exam. He has good anterior posterior drawer stability. Quad strength is within normal limits. He has a small effusion today. He has a positive Gomez's test and pain with really any rotation maneuvers of the knee. Tender to palpation medial joint line. MRI from 11/01/2019 shows a bucket-handle medial meniscus tear displaced into the notch Assessment: Bucket-handle tear of the medial meniscus right knee Plan: Right knee arthroscopic partial medial meniscectomy. We discussed the nature of the procedure and recovery. Risks include risk of infection, continued pain, swelling, degenerative arthritis, DVT, anesthetic risk, other risks. Procedures Summary: Raffaele was seen today for new patient. Diagnoses and all orders for this visit: Bucket-handle tear of medial meniscus of right knee as current injury, subsequent encounter ROS: Review of Systems Cardiovascular: Positive for leg swelling. Gastrointestinal: Positive for constipation and heartburn. Musculoskeletal: Positive for joint pain. Neurological: Positive for dizziness. Psychiatric/Behavioral: The patient is nervous/anxious. All other systems reviewed and are negative. Medications: Current Outpatient Medications: ??? amphetamine-dextroamphetamine 5 [...] file Gets together: Not on file Attends episcopalian service: Not on file Active member of [...] Family History: No family history on file. DELONTE PARKER MD 12/25/2019 documented in this encounter Nursing Notes * Phyllis Jaime RN - 12/31/2019 5:08 PM CDT Patient given additional care instructions for going up and down stairs with assistive device and crutch mobility. All discharge instructions, medications, followup given to patient and Girlfriend Joan in great detail. Both parties state understanding of all discharge paperwork, * Juliann Pierre RN - 12/31/2019 2:22 PM CDT Family updated during the procedure. Surgeon updated family at the end of the procedure * Enrique Gross RN - 12/31/2019 1:35 PM CDT notified family of start time at 1333 * Andi Kiser RN - 12/31/2019 12:00 PM CDT Patient states they have remained isolated with their household since their COVID 19 test was taken. Hibiclens bathes at home x 2, nose to toes protocol completed. CHG wipes used on arrival to [facility], betadine swabs x 2 placed in bilateral nares per RN. Pt tolerated well. * Phoebe Allison RN - 12/25/2019 4:25 PM CDT Can you climb 2 flights of stairs without CP or extreme SOB? yes Are you physically able to do the same things today that you could 6 months ago? ??yes Any recent heart testing? (EKG, stress test, Echo?) no Do you see a face boss? No No specialist/ PCP [employer] Pt instructed on covid testing verbalizes understanding. documented in this encounter OR Notes * Brief Op Note - Delonte Parker MD - 12/31/2019 2:43 PM CDT RIGHT KNEE ARTHROSCOPIC PARTIAL MEDIAL MENISECTOMY Procedure Note Raffaele Valenzuela 12/31/2019 1308 Procedure(s) (LRB): RIGHT KNEE ARTHROSCOPIC PARTIAL MEDIAL MENISECTOMY (Right) Surgeon(s): Delonte Parker MD Staff: Control Director: ZAYNAB Flood Relief Circulating Nurse: Juliann Pierre RN Relief Scrub: Nory Reddy RN Circulating Nurse 1: Enrique Gross RN Scrub Person 1: Tristin Mendoza, WEB DESIGN SPECIALIST Anesthesia: General Anesthesiologist: Tangela Pope MD STRAIGHTEDGE WORKER: Paige Cam CRNA Pre-Op Diagnosis: right knee medial meniscus tear Post-Op Diagnosis: same Findings: See dictation Complications: None Estimated Blood Loss: minimal Specimens:* No orders in the log * Drains: None DELONTE PARKER MD Date: 12/31/2019 Time: 2:43 PM * Op Note - Delonte Parker MD - 12/31/2019 12:00 AM CDT SURGEON: Delonte Parker MD. COLLEGE COACH: ZAYNAB Jimenez. PREOPERATIVE DIAGNOSIS: Right knee medial meniscus tear. POSTOPERATIVE DIAGNOSIS: Right knee medial meniscus tear. PROCEDURE: Arthroscopic right knee partial medial meniscectomy. ANESTHESIA: General. ESTIMATED BLOOD LOSS: Minimal. TOURNIQUET TIME: None. INDICATIONS FOR PROCEDURE: The patient is a 39-year-old male who has had prolonged problems with painful catching and locking of right knee. He was diagnosed with a bucket handle meniscus tear. He elected to proceed with surgery after discussion of risks, benefits, and convalescence. DESCRIPTION OF PROCEDURE: The patient was brought back to the operating room and positioned supine.General anesthetic was administered. Right leg was then placed into the arthroscopy leg vaughan andpadded. Nonsterile tourniquet was applied. The left leg was placed into the well leg vaughan. Prior to positioning the patient, exam under anesthesia was performed. The patient had a stable Moriah's on the right side with good endpoint and stable anterior and posterior drawer. There was also no instability with varus and valgus stress of the knee compared to the opposite knee. Range of motion wasunrestricted with full extension without hyperextension and flexion to greater than 120 degrees. The right lower extremity was prepped and draped in usual sterile fashion. Timeout was performed and Ancef was used for antibiotic. We then established a lateral viewing portal and introduced the arthroscope. A medial working portal was established as well. Immediately upon entering the joint with the arthroscope, the bucket handle meniscus tear was evident within the notch and just anterior to the medial femoral condyle. With some difficulty, I was able to bring that back into a relatively anatomic position. However, the edges of the meniscal tissue were rounded and irregular and although I was able to get it out of the notch and back into the posterior and medial part of the knee at the me dial compartment, the meniscal tissue did not lie down in an anatomic fashion. I felt that the healing potential was low given the chronicity and appearance of the tear; therefore, I made the decision to proceed with partial medial meniscectomy. Using a combination of arthroscopic biters and the mechanical shaver, the meniscus was debrided. Wewere able to get back into the more posterior aspect of the joint to debride the posterior horn by applying valgus stress. I did use a 21-gauge needle in order to perform a percutaneous tenotomy of the medial collateral ligament from outside at the joint line and just proximal to it. This gave us an extra millimeter or two of opening in order to debride the loose meniscal tissue. After the debridement, there was a stable posterior horn of the meniscus and a rim of tissue about 3 mm of posteriorhorn extending all the way around the meniscal body to the junction of the anterior horn and meniscal body. The anterior horn was normal in appearance. We then inspected the remainder of the knee. The ACL appeared normal. The lateral compartment was pristine with regards to the articular surfaces and lateral meniscus. The patellofemoral joint was also normal. The articular surface of the medial compartment were in good shape without any significant chondral defects. We then took our final pictures and closed with nylon suture. Sterile soft dressing was applied and the patient was transitionedto recovery room in stable condition. #[id number] /NTS * OR PreOp - JOHN Madera - 12/26/2019 12:22 PM CDT Chart reviewed. Per phone interview, patient denies any SOB/CP with 2 FOS or recent changes in activity tolerance in past 6 months. Per phone interview, patient denies having a face boss or previous cardiac testing. Patient scheduled for COVID testing 12/28/19. documented in this encounter Plan of Treatment Not on file documented as of this encounter Procedures Procedure Name Priority Date/Time Associated Diagnosis Comments ARTHROSCOPY KNEE MENISECTOMY 12/31/2019 1:02 PM CDT RIGHT KNEE MEDIAL MENSICUS TEAR [id number] Case Notes SCHED WITH MINOR ON 12/25/19 [facility] PHONE ASSESS Special Needs MITEK documented in this encounter Visit Diagnoses Not on filedocumented in this encounter Administered Medications Inactive Administered Medications - up to 3 most recent administrations Medication Order MAR Action Action Date Dose Rate Site acetaminophen (TYLENOL) tablet 1,000 mg 1,000 mg, Oral, Once, 1 dose, On Mon12/31/19 at 1145, Maximum dose of acetaminophen is 4000 mg from all sources in 24 hours., Pre-Op Given 12/31/2019 12:11 PM CDT 1,000 mg fentaNYL (SUBLIMAZE) injection 25 mcg 25 mcg, Intravenous, Every 5 min PRN, Moderate pain (Scale 4 - 7), Moderate pain, 4 doses, Starting on Mon12/31/19 at 1441, Until Mon12/31/19 at 1621, Maximum cumulative dose 100 mcg. Do not administer if patient is overly sedated, SpO2 less than 90%, or Respiratory Rate less than 12. If more than one IV analgesic is ordered per pain level, use in this order: fentaNYL, morphine, HYDROmorphone. If desired pain control is not reached, move to next ordered medication at next dosing interval., PACU Given 12/31/2019 3:41 PM CDT 25 mcg Given 12/31/2019 3:36 PM CDT 25 mcg gabapentin (NEURONTIN) capsule 300 mg 300 mg, Oral, Once, 1 dose, On Mon12/31/19 at 1145, Pre-Op Given 12/31/2019 12:11 PM CDT 300 mg HYDROcodone-acetaminophen (NORCO) 5-325 MG tablet 1 tablet 1 tablet, Oral, Once, 1 dose, On Mon12/31/19 at 1545, Maximum dose of acetaminophen is 4000 mg from all sources in 24 hours. Given 12/31/2019 3:35 PM CDT 1 tablet lactated ringers infusion at 10 mL/hr, Intravenous, Continuous, Starting on Mon12/31/19 at 1145, Until Mon12/31/19 at 1948, Infuse at TKO rate, Pre-Op New Bag 12/31/2019 2:33 PM CDT New Bag 12/31/2019 1:00 PM CDT New Bag 12/31/2019 12:11 PM CDT 10 mL/hr ondansetron (ZOFRAN-ODT) disintegrating tablet 8 mg 8 mg, Oral, Once, 1 dose, On Mon12/31/19 at 1145, On admission, Pre-Op Given 12/31/2019 12:11 PM CDT 8 mg ropivacaine (NAROPIN) injection As needed, Starting on Mon12/31/19 at 1438, Until Mon12/31/19 at 1450, Intra-Op Given 12/31/2019 2:38 PM CDT 10 mLs Operative Site sodium chloride 0.9 % irrigation Continuous PRN, Starting on Mon12/31/19 at 1333, Until Mon12/31/19 at 1438, Intra-Op New Bag 12/31/2019 2:38 PM CDT 2,000 mLs Operative Site New Bag 12/31/2019 1:33 PM CDT 3,000 mLs Op erative Site documented in this encounter Active and Recently Administered Medications Times are shown in CDT. Scheduled Medication Order 12/29/2019 12/30/2019 12/31/2019 acetaminophen (TYLENOL) tablet 1,000 mg (COMPLETED) 1,000 mg, Oral, Once, 1 dose, On Mon12/31/19 at 1145, Maximum dose of acetaminophen is 4000 mg from all sources in 24 hours., Pre-Op 1211 (Given - Provid er: Andi Kiser RN) ceFAZolin (ANCEF) 2 g in sodium chloride 0.9 % 100 mL IVPB (COMPLETED) 2 g, Intravenous, at 200 mL/hr, electrical engineering technologist to O.R., 1 dose, First dose on Mon12/31/19 at 1145, Pre-Op 1308 (New Bag - Prov ider: Paige Cam CRNA - Comment: Given in OR.)1323 (Infusion Stop Time - Provider: Paige Cam CRNA) gabapentin (NEURONTIN) capsule 300 mg (COMPLETED) 300 mg, Oral, Once, 1 dose, On Mon12/31/19 at 1145, Pre-Op 1211 (Given - Provid er: Andi Kiser RN) HYDROcodone-acetaminophen (NORCO) 5-325 MG tablet 1 tablet (COMPLETED) 1 tablet, Oral, Once, 1 dose, On Mon12/31/19 at 1545, Maximum dose of acetaminophen is 4000 mg from all sources in 24 hours. 1535 (Given - Provid er: Jaylin Braga RN) ondansetron (ZOFRAN-ODT) disintegrating tablet 8 mg (COMPLETED) 8 mg, Oral, Once, 1 dose, On Mon12/31/19 at 1145, On admission, Pre-Op 1211 (Given - Provid er: Andi Kiser RN) Continuous Medication Order 12/29/2019 12/30/2019 12/31/2019 lactated ringers infusion at 10 mL/hr, Intravenous, Continuous, Starting on Mon12/31/19 at 1145, Until Mon12/31/19 at 1948, Infuse at TKO rate, Pre-Op 1211 (New Bag - Prov ider: Andi Kiser RN)1300 (New Bag - Provider: Paige Cam CRNA)1350 (Anesthesia Volume Adjustment - Provider: Paige Cam CRNA)1433 (New Bag - Provider: Paige Cam CRNA)1456 (Infusion Stop Time - Provider: Paige Cam CRNA) PRN Medication Order 12/29/2019 12/30/2019 12/31/2019 fentaNYL (SUBLIMAZE) injection 25 mcg (CANCELED) 25 mcg, Intravenous, Every 5 min PRN, Moderate pain (Scale 4 - 7), Moderate pain, 4 doses, Starting on Mon12/31/19 at 1441, Until Mon12/31/19 at 1621, Maximum cumulative dose 100 mcg. Do not administer if patient is overly sedated, SpO2 less than 90%, or Respiratory Rate less than 12. If more than one IV analgesic is ordered per pain level, use in this order: fentaNYL, morphine, HYDROmorphone. If desired pain control is not reached, move to next ordered medication at next dosing interval., PACU 1536 (Given - Provid er: Jaylin Braga RN)1541 (Given - Provider: Jaylin Braga RN) ropivacaine (NAROPIN) injection (CANCELED) As needed, Starting on e 12/31/19 at 1438, Until Mon12/31/19 at 1450, Intra-Op 1438 (Given - Provid er: Delonte Parker MD) sodium chloride 0.9 % irrigation (COMPLETED) Continuous PRN, Starting on Mon12/31/19 at 1333, Until 12/31/19 at 1438, Intra-Op 1333 (New Bag - Prov ider: Delonte Parker MD)1438 (New Bag - Provider: Delonte Parker MD) documented in this encounter Care Teams Equipment Tech Relationship Specialty Start Date End Date Baljeet Doran MD [address] [place] [address] PCP - General 11/24/16 documented as of this encounter
--- OUTSIDE RECORDS SUMMARY | 2024-07-20 15:37 | XMS_ITS | Encounter Summary ---
Author Organization [facility] Address [facility] [place] [address] [place] [address] Care Team Providers Care Plumbing Assembler Installer Name Role Phone Baljeet Doran MD Primary Care Provider Reason for Visit * Reason Onset Date Comments Follow Up Call 01/14/2020 Encounter Details Date Type Department Care Team (Late st Contact Info) Description 01/14/2020 Telephone [facility] Medical Group Multispecialty Care - [facility] [address] [facility], [address] [place] [address] Delonte Agudelo MD [address] [place] [address] [phone] Follow Up Call Social History Tobacco Use Types Packs/Day Years [...] as of this encounter Progress Notes * Eddy Beltran MA - 01/14/2020 10:40 AM CDT Patient will warehouse picker 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 He said dr. Thomas is actually the one who had ordered it so I'm rerouting this. * Mikala Chao - 01/14/2020 10:17 AM CDT Patient called in, said he had an MRI on November 01, 2019 at [facility]. He has now found out that [facility] has denied coverage for the MRI. [facility] told the patient that they did not get the pre auth for the MRI and that's why it was denied. Patient wants to know why the pre auth wasn't obtained. Please follow up with patient. documented in this encounter Plan of Treatment Not on file documented as of this encounter Visit Diagnoses Not on filedocumented in this encounter Care Teams Plumbing Assembler Installer Relationship Specialty Start Date End Date Baljeet Doran MD [address] [place] [address] PCP - General 11/24/16 documented as of this encounter
--- OUTSIDE RECORDS SUMMARY | 2024-07-20 15:37 | XMS_ITS | Encounter Summary ---
Author Organization [facility] Address [facility] [facility] [place] [address] [place] [address] Care Team Providers Care Silk Screen Etcher Name Role Phone Baljeet Doran MD Primary Care Provider Encounter Details Date Type Department Care Team (Latest Contact Info) Description 11/18/2019 Travel Social History Tobacco Use Types Packs/Day [...] PM CDT documented as of this encounter Plan of Treatment Not on file documented as of this encounter Visit Diagnoses Not on filedocumented in this encounter Care Teams Silk Screen Etcher Relationship Specialty Start Date End Date Baljeet Doran MD [address] [place] [address] PCP - General 11/24/16 documented as of this encounter
--- OUTSIDE RECORDS SUMMARY | 2024-07-20 15:37 | XMS_ITS | Encounter Summary ---
Author Organization [facility] Address Critical access hospital6 [facility] [place] [address] [place] [address] Care Team Providers Care Army Manager Name Role Phone Baljeet Doran MD Primary Care Provider Encounter Details Date Type Department Care Team (Latest Contact Info) Description 02/09/2017 Abstract [facility] Medical Group Social History Tobacco Use Types Packs/Day Years Used Date Smoking Tobacco: Never Assessed Sex and Gender Information Value Date Recorded Sex Assigned at Not on file Legal Sex Male 12:41 AM CDT Gender Identity Not on file Sexual Orientation Not on file documented as of this encounter Plan of Treatment Not on file documented as of this encounter Visit Diagnoses Not on filedocumented in this encounter Care Teams Army Manager Relationship Specialty Start Date End Date Baljeet Doran MD [address] [place] [address] PCP - General 11/24/16 documented as of this encounter
--- OUTSIDE RECORDS SUMMARY | 2024-07-20 15:37 | XMS_ITS | Encounter Summary ---
Author Organization [facility] Address [facility]6 [facility] [place] [address] [place] [address] Care Team Providers Care Emergency Department Name Role Phone Baljeet Doran MD Primary Care Provider Reason for Visit * Reason Onset Date Comments Request (Information) 08/09/2019 Encounter Details Date Type Department Care Team (Late st Contact Info) Description 08/09/2019 Telephone [facility] Medical Group Family Medicine - [place] [address], [address] [place] [address] Baljeet Doran MD [address] [place] [address] Request (Information) Social History Tobacco Use Types Packs/Day Years Used Date Smoking Tobacco: Never Smokeless Tobacco: Never Sex and Gender Information Value Date Recorded Sex Assigned at Not on file Legal Sex Male 12:41 AM CDT Gender Identity Not on file Sexual Orientation Not on file documented as of this encounter Progress Notes * Nargis Feng MA - 08/09/2019 11:34 AM CST Patients primary insurance [facility] has approved the request for the MRI. [place] (patients secondary)has denied the request for the MRI. The reason for the denial is because the patient did not have an xray and the clinicals did not show that the patient failed to improve six week doctor prescribed treatment with a follow up phone call or visit with the provider to check the progress. A peer to peer was done today 08/09/[address] Doran. [phone] Due to the patient not getting the Xray done. The request was denied. I then notified the patient to give him this information as written above. Raffaele said that he didn't know where to go to get the xray done. I informed him that [facility] take both [place] and [employer]. He said that he will go there today to get the xray done. He would like to also get all of his other imaging done. I notified Juliane Bartlett in the referral center to inform her of this. She will f/uonce pt get the xray done. 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
--- OUTSIDE RECORDS SUMMARY | 2024-07-20 15:37 | XMS_ITS | Encounter Summary ---
Author Organization [facility] Address [facility]6 [place] [address] [place] [address] Care Team Providers Care Supervisor Paint Department Name Role Phone Baljeet Doran MD Primary Care Provider Encounter Details Date Type Department Care Team (Latest Contact Info) Description 04/06/2018 Abstract [facility] Medical Group , Oneida Mendiola MD Social History Tobacco Use Types Packs/Day Years [...] Diagnoses Not on filedocumented in this encounter Additional Health Concerns Infection Onset Date Last Indicated Resolved Time COVID-19 Rule Out 12/28/2019 12/28/2019 12/29/2019 1:50 PM CDT documented as of this encounter Care Teams Supervisor Paint Department Relationship Specialty Start Date End Date Baljeet Doran MD [address] [facility] [address] [place], [place] [id number] PCP - General 11/24/16 documented as of this encounter
--- OUTSIDE RECORDS SUMMARY | 2024-07-20 15:37 | XMS_ITS | Encounter Summary ---
Author Organization [facility] Address [facility]6 [facility] [place] [address] [place] [address] Care Team Providers Care Sensor Operator Name Role Phone Baljeet Doran MD Primary Care Provider Reason for Visit * Reason Onset Date Comments Referral 11/03/2020 Encounter Details Date Type Department Care Team (Late st Contact Info) Description 11/03/2020 Telephone [facility] Medical Group Family Medicine - [place] [address], [address] [place] [address] Baljeet Doran MD [address] [place] [address] Referral Social History Tobacco Use Types Packs/Day Years [...] as of this encounter Progress Notes * Lulu Abebe MA - 11/04/2020 1:43 PM CDT Contacted [facility] to get patient scheduled for Emergent referral. Patient is scheduled at 12:[address] Eugene on 11/05/20 at [address] [place] [address]. Patient has been notified of appointment and instructed to bring copy of imaging and report. Patient was instructed to call [phone] when outside building for appointment. * Lulu Abbee MA - 11/04/2020 1:01 PM CDT Kala Ferreira called from [facility] stating that she had all the doctors available review patients imaging and they suggest surgery RANDY but that they are unable to do surgery. The physicians suggest patient go to Ortho at [facility]. Called patient regarding his ortho appointment today with Dr. Miranda at [facility]. Patient stated he had to cancel that appointment due to him being in the ER at [facility] for SOB anddizziness. I notified him that [facility] is unable to see him but that they suggest surgery RANDY and referred him to [facility]. I told patient to please call Dr. Miranda's office to reschedule that appointment and that we would try to get him seen at [facility]. Patient verbalized understanding. * Lulu Abebe MA - 11/03/2020 4:08 PM CDT Patient's mother Jyothi called regarding ortho referral. Jyothi stated that the patient has an appointment at [facility] in [facility] tomorrow with Dr. Miranda. Damari would like to know if Dr. Doran thinks he should have any imaging done as patient has pains in his left side under his rib cage and bruising on back. I told patient we would be in contact withpatient once I speak with Dr. Doran. * Lulu Abebe MA - 11/03/2020 3:50 PM CDT [facility] She did not answer, message left for return call. Spoke with Kala Ferreira, she stated that they are working on getting the imaging viewed by their physicians. I advised her that patient does have an appointment tomorrow with Dr. Miranda in [place] but to keep working on trying to get patient seen at [facility]. She verbalized understanding. * Rafaela Garcia - 11/03/2020 3:16 PM CDT Kala Ferreira from [facility] Dept is calling. She wanted to let the MA know that they are working on getting the patient with a doctor. She would like a call back from the MA. * Lulu Abebe MA - 11/03/2020 2:48 PM CDT Kala Ferreira from [facility] called regarding emergent referral. Kala Ferreira stated that they are unable to see the patient due to low staff. * Lulu Abebe MA - 11/03/2020 11:16 AM CDT Patient's insurance not accepted at [facility]. Referral faxed to Kala Ferreira at [facility] department at [phone] for scheduling. Kala Ferreira stated that they are booked out until 12/04 but that she will try to get scheduled sooner and be in contact. * Lulu Abebe MA - 11/03/2020 10:59 AM CDT Emergent referral for Dr. Berg faxed to [phone]. documented in this encounter Plan of Treatment Not on file documented as of this encounter Visit Diagnoses Not on filedocumented in this encounter Care Teams Sensor Operator Relationship Specialty Start Date End Date Baljeet Doran MD [address] [address] PCP - General 11/24/16 documented as of this encounter
--- OUTSIDE RECORDS SUMMARY | 2024-07-20 15:37 | XMS_ITS | Encounter Summary ---
Author Organization [facility] Address [facility]6 [facility] [place] [address] [place] [address] Care Team Providers Care Shop Supervisor Name Role Phone Baljeet Doran MD Primary Care Provider Encounter Details Date Type Department Care Team (Late st Contact Info) Description 10/25/2019 Orders Only [facility] Medical Group Multispecialty Care - [facility] [address] [place] [address] Tate Thomas MD [address] [place] [id number] Social History Tobacco Use Types Packs/Day Years [...] on file documented as of this encounter Results * OXR RT KNEE 3V (10/25/2019 9:36 AM CDT) Anatomical Region Laterality Modality Radiographic Ree ging Narrative 10/25/2019 10:38 AM CDT Right knee Findings: No acute osseous abnormality, fracture, dislocation. ?? enesthophyte superior patellar pole. ??Mild degenerative changes patellofemoral compartment. ??No significant medial lateral joint space narrowing or degenerative changes. ??Moderate effusion. us Tate Thomas MD GENERAL IMAGING Final Result documented in this encounter Visit Diagnoses Diagnosis Knee pain- Primary Pain in joint, lower leg documented in this encounter Care Teams Shop Supervisor Relationship Specialty Start Date End Date Baljeet Doran MD [address] [address] PCP - General 11/24/16 documented as of this encounter
--- OUTSIDE RECORDS SUMMARY | 2024-07-20 15:37 | XMS_ITS | Encounter Summary ---
Author Organization [facility] Address [facility]6 [facility] [place] [address] [place] [address] Care Team Providers Care Snuff Drier Name Role Phone Baljeet Doran MD Primary Care Provider Reason for Visit * Reason Comments Postop Followup right knee * Consultation (Urgent) - Closed Specialty Diagnoses / Procedures Referred By Contac t Referred To Contact ORTHOPAEDICS Diagnoses Chronic pain of right knee Baljeet Doran MD [address] [place] [address] Phone: tel: fax: Victoriano Parker MD Phone: tel: fax: Referral ID Status Reason Start Date Expiration Date V isits Requested Visits Authorized [id number] Closed Specialty Services 08/06/2019 09/05/2020 100 100 Encounter Details Date Type Department Care Team (Latest Contact Info) Description 01/15/2020 9:40 AM CDT Office Visit [facility] Medical Group Multispecialty Care - [facility] [address] [facility] [address] [facility] [place] [id number] Victoriano Parker MD [address] [place] [address] Postop Followup (right knee) Social History Tobacco Use Types Packs/Day Years [...] have Coronavirus / COVID-19? No / Unsure 01/15/2020 9:33 AM CDT documented as of this encounter Last Filed Vital Signs Vital Sign Reading Time Taken Comments Blood Pressure 168/99 01/15/2020 9:49 AM CDT Pulse 102 01/15/2020 9:49 AM CDT Temperature 36.4 ??C (97.6 ??F) 01/15/2020 9:49 AM CD T Respiratory Rate - - Oxygen Saturation 97% 01/15/2020 9:49 AM CDT Inhaled Oxygen Concentration - - Weight 84.1 kg (185 lb 8 oz) 01/15/2020 9:49 AM CDT Height 177.8 cm (5' 10 ) 01/15/2020 9:49 AM CDT Body Mass Index 26.62 01/15/2020 9:49 AM CDT documented in this encounter Progress Notes * Victoriano Parker MD - 01/15/2020 9:40 AM CDT Images from the original note were not included. Office Visit Reason for Visit: Postop Followup (right knee) History of Present Illness: He is here for follow-up of his right knee arthroscopy with partial medial meniscectomy. He says heis doing very well. Takes naproxen for pain as needed. He is walking without crutches. Vitals: Filed Vitals: 01/15/20 0949 BP: (!) 168/99 Pulse: 102 Temp: 97.6 ??F (36.4 ??C) TempSrc: Oral SpO2: 97% Weight: 84.1 kg (185 lb 8 oz) Height: 5' 10 (1.778 m) Physical Exam: Alert and oriented, no distress. On exam of the right knee he is somewhat tender at the medial joint line. Trace effusion. Range of motion from full extension without hyperextension to 120 degrees. Slightly better flexion on the opposite side. No instability with anterior posterior drawer testing. No pain or instability varus valgus stress at 30 degrees flexion. He does have some discomfort Mallory's maneuver but without any palpable click. Quadriceps is firing well. No extensor lag. Calf soft nontender. Assessment: 2 weeks status post left knee arthroscopy with partial medial meniscectomy. Plan: He doing well at this point. His quadriceps is working well. He has no extensor lag. I have encouraged him to continue to work on that last bit of flexion. He may ease into his activities. I think hewould be in close to returning to work over the next month. Follow-up in clinic on an as-needed basis. Summary: There are no diagnoses linked to this encounter. Medications: Current Outpatient Medications: ??? aspirin EC 325 MG tablet, Take 1 tablet (325 mg total) by mouth daily for 30 days. For blood clot prevention, Disp: 30 tablet, Rfl: 0 ??? HYDROcodone-acetaminophen 5-325 MG tablet, Take 1 tablet by mouth every 4 (four) hours as needed for Pain. Indications: Acute Pain < 7 Day Supply, Disp: 15 tablet, Rfl: 0 ??? HYDROcodone-acetaminophen 5-325 MG tablet, Take 1 tablet by mouth every 4 (four) hours as needed for Pain. Indications: Acute Pain < 7 Day Supply, Disp: 15 tablet, Rfl: 0 ??? naproxen 500 MG tablet, Take 1 tablet (500 mg total) by mouth every 12 (twelve) hours as needed. Take one tab twice daily with food for 7 days. Then take only as needed., Disp: 60 tablet, Rfl: 1 VICTORIANO PARKER MD 01/15/2020 documented in this encounter Plan of Treatment Not on file documented as of this encounter Visit Diagnoses Diagnosis Surgical followup- Primary Follow-up examination, following unspecified surgery documented in this encounter Care Teams Snuff Drier Relationship Specialty Start Date End Date Baljeet Doran MD [address] [place] [address] PCP - General 11/24/16 documented as of this encounter
--- OUTSIDE RECORDS SUMMARY | 2024-07-20 15:37 | XMS_ITS | Encounter Summary ---
Author Organization [facility] Address [facility]6 [place] [address] [place] [address] Care Team Providers Care Inspector Final Assembly Mechanical Name Role Phone Baljeet Doran MD Primary Care Provider Reason for Visit * Reason Comments Sore Throat Pt c/o sore throat s calra Monday. Pt c/o it hurting when he swallows up into his ears Chills Encounter Details Date Type Department Care Team (Late st Contact Info) Description 11/12/2018 1:40 PM CDT Office Visit [facility] Medical Group Family Medicine - [place] [address], [address] [place] [id number] Miley Hogue Anabelle, [address] [place] [address] Sore Throat (Pt c/o sore throat since Monday. Pt c/o it hurting when he swallows up into his ears); Chills Social History Tobacco Use Types Packs/Day Years Used Date Smoking Tobacco: Never Smokeless Tobacco: Never Sex and Gender Information Value Date Recorded Sex Assigned at Not on file Legal Sex Male 12:41 AM CDT Gender Identity Not on file Sexual Orientation Not on file documented as of this encounter Last Filed Vital Signs Vital Sign Reading Time Taken Comments Blood Pressure 116/73 11/12/2018 1:55 PM CDT Pulse 97 11/12/2018 1:55 PM CDT Temperature 37.8 ??C (100.1 ??F) 11/12/2018 1:55 PM C DT Respiratory Rate 18 11/12/2018 1:55 PM CDT Oxygen Saturation 95% 11/12/2018 1:55 PM CDT Inhaled Oxygen Concentration - - Weight 95 kg (209 lb 6.4 oz) 11/12/2018 1:55 PM CDT Height - - Body Mass Index 30.05 04/26/2017 8:51 AM CDT documented in this encounter Progress Notes * Miley Hogue, DO - 11/12/2018 1:40 PM CDT Images from the original note were not included. Office Progress Note Encounter Date: 11/12/2018 Reason for Visit: Sore Throat (Pt c/o sore throat since Monday night. Pt c/o it hurting when he swallows up into his ears) and Chills History of Present Illness: Raffaele Valenzuela is a 38-year-old male here for concerns about a sore throat that has been present for 2-3 days. with Fever and Chills. He also complains of malaise. He Admits abdominal pain, Denies cough, Denies rash, and Admits ear pain. ROS: Gen: Fatigue, Yes Fever and Chills HEENT: Sore throat, Yes nasal discharge Cardio: no chest pains or palpitations Respiratory: No SOB, No Cough GI: no vomiting, Diarrhea Skin: No rash Musculoskeletal: Yes arthralgias Medications: Current Outpatient Medications: ??? cyclobenzaprine 10 MG tablet, Take 1 tablet by mouth., Disp: , Rfl: ??? naproxen 500 MG tablet, Take 1 tablet by mouth every 12 (twelve) hours as needed., Disp: , Rfl: Allergies: No Known Allergies Medical History: History reviewed. No pertinent past medical history. Surgical History: History reviewed. No pertinent surgical history. Social History: Social History Tobacco Use ??? Smoking status: Never Smoker ??? Smokeless tobacco: Never Used Substance Use Topics ??? Alcohol use: Not on file ??? Drug use: Not on file Family History: No family history on file. Filed Vitals: 11/12/18 1355 BP: 116/73 Pulse: 97 Resp: 18 Temp: 100.1 ??F (37.8 ??C) TempSrc: Oral SpO2: 95% Weight: 95 kg (209 lb 6.4 oz) PE: Physical Exam Constitutional: He is oriented to person, place, and time. He appears well- developed and well-nourished. HENT: Head: Normocephalic and atraumatic. Right Ear: External ear and ear canal normal. Left Ear: External ear normal. Nose: Nose normal. Mouth/Throat: Oropharyngeal exudate present. Specifically his left posterior tonsils extremely erythematous is almost exudative cavitated into the posterior pharynx. He does have one posterior lymphadenopathy on the left side. Patient has cerumen impaction in his left ear Eyes: Pupils are equal, round, and reactive to light. Neck: No thyromegaly present. Cardiovascular: Normal rate and regular rhythm. No murmur heard. Pulmonary/Chest: Effort normal and breath sounds normal. He has no wheezes. Abdominal: Soft. Bowel sounds are normal. He exhibits no distension and no mass. There is no tenderness. There is no guarding. Neurological: He is alert and oriented to person, place, and time. Skin: No rash noted. Psychiatric: He has a normal mood and affect. Nursing note and vitals reviewed. Rapid Strep in the Office: negative Diagnoses/Impression: 1. Sore throat RAPID STREP A STREP A, DNA Recommendations and Plan: 1. Sore throat Discussed with patient based off his presentation I do want to go ahead and cover him for possible bacterial pharyngitis. Were to cover with penicillin and send it for throat culture. He is not a smoker so at this point time I think we can try conservative therapy. Use of the pain that she is underwill also go ahead and give him some viscous lidocaine. He seems a little old to be treating with mono discussed that may also be viral versus chlamydial so we will go ahead and make sure that we geteverything treated. If this is not improving follow-up with myself or his normal PCP, Dr. Doran - RAPID STREP A - STREP A, DNA; Future Discussed with the patient the above plan. Advised Raffaele Valenzuela that if they have any worsening symptoms, fever or chills lasting longer than 48 hours that they should contact the office or if after hours seek medical attention. Orders Placed This Encounter ??? RAPID STREP A ??? STREP A, DNA ASSAY (for Confirmation only) MILEY HOGUE DO 11/12/2018 documented in this encounter Plan of Treatment Not on file documented as of this encounter Procedures Procedure Name Priority Date/Time Associated Diagnosis Comments RAPID STREP A Routine 11/12/2018 Sore throat documented in this encounter Results * CULTURE THROAT ALL ORG (11/12/2018 2:22 PM CDT) SPEC DESCRIPTION THROAT 11/12/2018 6:[address] [facility] SPECIAL REQUESTS NO SPECIAL REQUEST 11/12/2018 6:[address] [facility] CULTURE RESULT LIGHT GROWTH OF NORMAL KAPIL PRESENT 11/14/2018 8:[address] [facility] THROAT SWAB / Unknown 11/12/2018 2:22 PM CDT 11/12/2018 6:52 PM CDT Miley Hogue DO MICROBIOLOGY - GENERAL ORDERA BLES Final Result [facility] [address] [place] [address], [place] [phone] * RAPID STREP A (11/12/2018) RAPID STREP TEST negative NEGATIVE [facility] [place] [place] Internal Control: VALID VALID [facility] [place] [place] STRUCTURE OF ANTERIOR PORTION OF NECK / Unknown 11/12/2018 Miley Hogue DO MICROBIOLOGY - GENERAL ORDERA BLES Final Result [facility] [place] [place] [address] [place] [address], [place] [phone] documented in this encounter Visit Diagnoses Diagnosis Sore throat- Primary Acute pharyngitis documented in this encounter Care Teams Inspector Final Assembly Mechanical Relationship Specialty Start Date End Date Baljeet Doran MD [address] [place] [address] PCP - General 11/24/16 documented as of this encounter
--- OUTSIDE RECORDS SUMMARY | 2024-07-20 15:37 | XMS_ITS | Encounter Summary ---
Author Organization [facility] Address [facility] [place] [address] [place] [address] Care Team Providers Care Shearing Machine Feeder Name Role Phone Baljeet Doran MD Primary Care Provider Reason for Visit * Reason Onset Date Comments Information 01/27/2020 Encounter Details Date Type Department Care Team (Late st Contact Info) Description 01/27/[address] [facility] Family Medicine - [place] [address], [address] [place] [address] Baljeet Doran MD [address] [place] [phone] Information Social History Tobacco Use Types Packs/Day Years [...] as of this encounter Progress Notes * Julianne Beltran MA - 01/27/2020 11:30 AM CDT Does the patient report a cough? No Does the patient have a fever? No Does the patient report a sore throat? No Does the patient have shortness of breath? No Has the patient been exposed to a confirmed positive COVID-19 case? No Are you a healthcare worker or drilling inspector? No HEALTHCARE WORKERS or patients who complain of a sore throat with fever will still call the TRIAGE LINE ([phone] or [phone]). If pt has c/o URI, forward call to flight radio officer or team MAs to determine if virtual visit is appropriate. documented in this encounter Plan of Treatment Not on file documented as of this encounter Visit Diagnoses Not on filedocumented in this encounter Care Teams Shearing Machine Feeder Relationship Specialty Start Date End Date Baljeet Doran MD [address] [address] PCP - General 11/24/16 documented as of this encounter
--- OUTSIDE RECORDS SUMMARY | 2024-07-20 15:37 | XMS_ITS | Encounter Summary ---
Author Organization [facility] Address [facility]6 [place] [address] [place] [address] Care Team Providers Care Nut Sorter Name Role Phone Baljeet Doran MD Primary Care Provider Reason for Visit * Auth/Cert Specialty Diagnoses / Procedures Referred By Contac t Referred To Contact Diagnoses RIGHT KNEE MEDIAL MENSICUS TEAR [id number] Procedures RIGHT KNEE ARTHROSCOPIC PARTIAL MEDIAL MENISECTOMY Referral ID Status Reason Start Date Expiration Date Visits Re quested Visits Authorized [id number] 1 1 Encounter Details Date Type Department Care Team (Latest Contact Info) Description 12/31/2019 11:25 AM CDT - 12/31/2019 5:38 PM CDT Hospital Encounter [facility] [place] [address] Delonte Parker MD [address] [place] [address] Discharge Disposition: Home or Self Care (Routine [...] Sign Reading Time Taken Comments Blood Pressure 145/93 12/31/2019 5:20 PM CDT Pulse 98 12/31/2019 5:20 PM CDT Temperature 36.4 ??C (97.6 ??F) 12/31/2019 5:20 PM CD T Respiratory Rate 18 12/31/2019 5:20 PM CDT Oxygen Saturation 98% 12/31/2019 5:20 PM CDT Inhaled Oxygen Concentration - - [...] Care Everywhere. * Hydrocodone and Acetaminophen, ADULT (Omani) * Docusate, ADULT (Omani) * Aspirin, ADULT (Omani) * Naproxen, ADULT (Omani) * General Anesthesia Discharge Instructions (Omani) * Meniscal Tear Discharge Instructions (Omani) * CRUTCH MOBILITY: PARTIAL WEIGHT BEARING (VIETNAMESE) * Going Up and Down Curbs or Stairs With a Walker or Crutches (Omani) documented in this encounter Medications at Time [...] during recuperation were discussed with the patient/family/personal airport representative. Reasonable alternatives to the patient's proposed procedure/surgery including benefits, risks, and side effects related to the alternatives and the risks related to not receiving the proposed care were also discussed with the patient/family/personal airport representative. Questions were answered and the patient/family/personal airport representative verbalized understanding and desires to proceed. [...] file Gets together: Not on file Attends adventism service: Not on file Active member of [...] completed. CHG wipes used on arrival to [facility], betadine swabs x 2 placed in bilateral [...] test, Echo?) no Do you see a card scraper? No No specialist/ PCP Darren HERR Pt instructed on covid testing verbalizes understanding. documented in this encounter OR Notes * Brief Op Note - Delonte Parker MD - 12/31/2019 2:43 PM CDT RIGHT KNEE ARTHROSCOPIC PARTIAL MEDIAL MENISECTOMY Procedure Note Raffaele Valenzuela 12/31/2019 1308 Procedure(s) (LRB): RIGHT KNEE ARTHROSCOPIC PARTIAL MEDIAL MENISECTOMY (Right) Surgeon(s): Delonte Parker MD Staff: Tool Procurement Coordinator: ZAYNAB Flood Relief Circulating Nurse: Juliann Pierre RN Relief Scrub: Nory Reddy RN Circulating Nurse 1: Enrique Gross RN Scrub Person 1: Tristin Mendoza, SCALE MECHANIC Anesthesia: General Anesthesiologist: Tangela Pope MD DEPUTY COURT CLERK: Paige Cam CRNA Pre-Op Diagnosis: right knee medial meniscus tear Post-Op Diagnosis: same Findings: See dictation Complications: None Estimated Blood Loss: minimal Specimens:* No orders in the log * Drains: None DELONTE PARKER MD Date: 12/31/2019 Time: 2:43 PM * Op Note - Delonte Parker MD - 12/31/2019 12:00 AM CDT SURGEON: Delonte Parker MD. LAYER OUT PLATE GLASS: ZAYNAB Jimenez. PREOPERATIVE DIAGNOSIS: Right knee medial [...] then placed into the arthroscopy leg vaughan and padded. Nonsterile tourniquet was applied. The left leg [...] to the opposite knee. Range of motion was unrestricted with full extension without hyperextension and flexion [...] was transitionedto recovery room in stable condition. #[id number] /NTS * OR PreOp - JOHN Madera - 12/26/2019 12:22 PM CDT Chart reviewed. Per phone interview, patient denies any SOB/CP with 2 FOS or recent changes in activity tolerance in past 6 months. Per phone interview, patient denies having a card scraper or previous cardiac testing. Patient scheduled for COVID testing 12/28/19. documented in this encounter Plan of Treatment Not on file documented as of this encounter Procedures Procedure Name Priority Date/Time Associated Diagnosis Comments ARTHROSCOPY KNEE MENISECTOMY 12/31/2019 1:02 PM CDT RIGHT KNEE MEDIAL MENSICUS TEAR [id number] Case Notes SCHED WITH MINOR ON 12/25/19 [facility] PHONE ASSESS Special Needs MITEK documented in this encounter Visit Diagnoses Diagnosis Bucket-handle tear of medial meniscus of right knee as current injury, subsequent encounter- Primary Sore throat Acute pharyngitis documented in this encounter Administered Medications Inactive [...] Given 12/31/2019 12:11 PM CDT 8 mg documented in this encounter Active and [...] (COMPLETED) 2 g, Intravenous, at 200 mL/hr, junior web designer to O.R., 1 dose, First dose on Mon12/31/19 at 1145, Pre-Op 1308 (New Bag - Prov ider: Paige Cam CRNA - Comment: Given in OR.)1323 (Infusion Stop Time - Provider: Paige Cam CRNA) gabapentin (NEURONTIN) capsule 300 mg (COMPLETED) 300 mg, Oral, Once, 1 dose, On e 12/31/19 at 1145, Pre-Op 1211 (Given - Provid [...] 8 mg, Oral, Once, 1 dose, On e 12/31/19 at 1145, On admission, Pre-Op 1211 (Given [...] PACU 1536 (Given - Provid er: Jaylin Braga, RN)1541 (Given - Provider: Jaylin Braga RN) ropivacaine (NAROPIN) injection (CANCELED) As needed, Starting on Mon12/31/19 at 1438, Until Mon12/31/19 at 1450, Intra-Op 1438 (Given - Provid er: Delonte Parker MD) sodium chloride 0.9 % irrigation (COMPLETED) Continuous PRN, Starting on Mon12/31/19 at 1333, Until Mon12/31/19 at 1438, Intra-Op 1333 (New Bag - Prov ider: Delonte Parker MD)1438 (New Bag - Provider: Delonte Parker MD) documented in this encounter Care Teams Nut Sorter Relationship Specialty Start Date End Date Baljeet Doran MD [address] [address] PCP - General 11/24/16 documented as of this encounter
--- OUTSIDE RECORDS SUMMARY | 2024-07-20 15:37 | XMS_ITS | Encounter Summary ---
Author Organization [facility] Address [facility]6 [facility] [place] [address] [place] [address] Care Team Providers Care Power Shovel Operator Helper Name Role Phone Baljeet Doran MD Primary Care Provider Reason for Visit * Reason Onset Date Comments Problem 11/16/2018 Encounter Details Date Type Department Care Team (Late st Contact Info) Description 11/16/2018 Telephone [facility] Family [facility] - [place] [address] [facility], [address] [place] [address] Baljeet Doran MD [address] [place], [place] [id number] Problem Social History Tobacco Use Types Packs/Day Years Used Date Smoking Tobacco: Never Smokeless Tobacco: Never Sex and Gender Information Value Date Recorded Sex Assigned at Not on file Legal Sex Male 12:41 AM CDT Gender Identity Not on file Sexual Orientation Not on file documented as of this encounter Progress Notes * Nargis Feng MA - 11/19/2018 3:22 PM CDT I spoke to Raffaele Joe# [phone] he stated that he was doing a lot better. He will f/u with us if he need anything else * Nargis Feng MA - 11/16/2018 1:42 PM CDT Pended to Dr. Doran for advisement. Prior test were neg for strep as well as culture. * Anabelle Gonzales - 11/16/2018 1:19 PM CDT Pt is calling, he was seen on 11/12/18 for a sore throat. He states that it has gotten a lot worse since then and he now has sores on back of his throat. I spoke with Nargis and she advised me to task it. Pharmacy [facility]# [phone] documented in this encounter Plan of Treatment Not on file documented as of this encounter Visit Diagnoses Not on filedocumented in this encounter Care Teams Power Shovel Operator Helper Relationship Specialty Start Date End Date Baljeet Doran MD [address] [place] [address] PCP - General 11/24/16 documented as of this encounter
--- OUTSIDE RECORDS SUMMARY | 2024-07-20 15:37 | XMS_ITS | Encounter Summary ---
Author Organization [facility] Address [facility]6 [facility] [place] [address] [place] [address] Care Team Providers Care Delivery Rn Name Role Phone Baljeet Doran MD Primary Care Provider Encounter Details Date Type Department Care Team (Latest Contact Info) Description 12/25/2019 Travel Social History Tobacco Use Types Packs/Day [...] on filedocumented in this encounter Care Teams Delivery Rn Relationship Specialty Start Date End Date Baljeet Doran MD [address] [place] [address] PCP - General 11/24/16 documented as of this encounter
--- OUTSIDE RECORDS SUMMARY | 2024-07-20 15:37 | XMS_ITS | Encounter Summary ---
Author Organization [facility] Address [facility]6 [facility] [place] [address] [place] [address] Care Team Providers Care Business Process Specialist Name Role Phone Baljeet Doran MD Primary Care Provider Encounter Details Date Type Department Care Team (Latest Contact Info) Description 12/05/2019 Travel Social History Tobacco Use Types Packs/Day [...] on filedocumented in this encounter Care Teams Business Process Specialist Relationship Specialty Start Date End Date Baljeet Doran MD [address] [place] [address] PCP - General 11/24/16 documented as of this encounter
--- OUTSIDE RECORDS SUMMARY | 2024-07-20 15:37 | XMS_ITS | Encounter Summary ---
Author Organization [facility] - [facility] Address [facility]6 [facility] [place] [address] [place] [address] Care Team Providers Care Paper Ruler Name Role Phone Baljeet Doran MD Primary Care Provider Reason for Visit * Reason Onset Date Comments Schedule Surgery 12/26/2019 Encounter Details Date Type Department Care Team (Late st Contact Info) Description 12/26/2019 Telephone [facility] Multispecialty Care - [facility] [address] [facility] [place] [address] Delonte Agudelo MD [address] [place] [phone] Schedule Surgery Social History Tobacco Use Types Packs/Day Years [...] PM CDT documented as of this encounter Progress Notes * Cinthia Maurice RN - 12/26/2019 8:53 AM CDT Spoke to patient. Explained that his arrival time in 11 am for surgery. Surgical packet was mailed out yesterday. Pretesting will call him about his Covid testing. Patient verbalized understanding. documented in this encounter Plan of Treatment Not on file documented as of this encounter Visit Diagnoses Not on filedocumented in this encounter Care Teams Paper Ruler Relationship Specialty Start Date End Date Baljeet Doran MD [address] [address] PCP - General 11/24/16 documented as of this encounter
--- OUTSIDE RECORDS SUMMARY | 2024-07-20 15:37 | XMS_ITS | Encounter Summary ---
Author Organization [facility] Address [facility]6 [facility] [place] [address] [place] [address] Care Team Providers Care Supervisor Mold Cleaning And Storage Name Role Phone Baljeet Doran MD Primary Care Provider Encounter Details Date Type Department Care Team (Late st Contact Info) Description 12/25/2019 Prep for Procedure [place] Pre-Ad[facility] Testing [address] [place], [place] [phone] Delonte Agudelo MD [address] [place] [id number] Social History Tobacco Use Types Packs/Day Years [...] documented as of this encounter Results * PRE-SURGICAL/PRE-PROCEDURE CORONAVIRUS (COVID 19) (12/28/2019 11:45 AM CDT) CORONAVIRUS SARS COV 2 PCR (RESP) NOT DETECTED NOT DETECTED 12/29/2019 1:50 PM CDT [facility] Comment: A Not Detected (negative) test result [...] providers and patients using the following websites: https://www.Apprats.Oxtex/home/Covid-19/HCP/QuestIV[facility]/fact- sheet.html https://www.Apprats.Oxtex/home/Covid-19/Patients/ Quest[facility]/fact-sheet.html This test has been authorized by the FDA under an Emergency Use Authorization (EUA) for use by authorized laboratories. Due to the current public health emergency, [facility] is receiving a high volume of samples [...] about COVID-19 can be found at the [employer] website: www.Daz 3d.Oxtex/Covid19. Test performed at [facility] [address] ??[phone] Director: SIVA FRANCIS DO,MPH NASOPHARYNGEAL SWAB / Unknown 12/28/2019 11:45 AM CDT Delonte Agudelo MD MICROBIOLOGY - GENERAL ORDER TRUNG Final Result [facility] [address] [place] [address], documented in this encounter Visit Diagnoses Diagnosis Preop testing- Primary Preoperative examination, unspecified documented in this encounter Additional Health Concerns Infection Onset Date Last Indicated Resolved Time COVID-19 Rule Out 12/28/2019 12/28/2019 12/29/2019 1:50 PM CDT documented as of this encounter Care Teams Supervisor Mold Cleaning And Storage Relationship Specialty Start Date End Date Baljeet Doran MD [address] [address] PCP - General 11/24/16 documented as of this encounter
--- OUTSIDE RECORDS SUMMARY | 2024-07-20 15:37 | XMS_ITS | Encounter Summary ---
Author Organization [facility] Address [facility]6 [place] [address] [place] [address] Care Team Providers Care Deburrer Name Role Phone Baljeet Doran MD Primary Care Provider Reason for Visit * Reason Onset Date Comments Question 09/30/2019 Encounter Details Date Type Department Care Team (Late st Contact Info) Description 09/30/2019 Telephone [facility] Multispecialty Care - [facility] [address] [facility] [place] [address] Tate Thomas MD [address] [place] [address] Question Social History Tobacco Use Types Packs/Day Years Used Date Smoking Tobacco: Never Smokeless Tobacco: Never Sex and Gender Information Value Date Recorded Sex Assigned at Not on file Legal Sex Male 12:41 AM CDT Gender Identity Not on file Sexual Orientation Not on file documented as of this encounter Progress Notes * Eddy Beltran MA - 09/30/2019 11:09 AM CDT Called patient and he was trying to schedule an MRI with our office. I let him know he would need to call scheduling for this and PCP for the order. Patient stated he would do so and I ended the call. * Eddy Beltran MA - 09/30/2019 11:04 AM CDT We did not order the MRI. PCP did this. We have not seen the patient. He had an apt 08/22/2019 which he cancelled. I am not sure what he is asking. I will call the patient * Malka Beltran - 09/30/2019 10:53 AM CDT Patient would like to reschedule MRI that he had to cancel and wasn't sure if the orders were stillvalid. Please call patient back to let know if he can schedule. documented in this encounter Plan of Treatment Not on file documented as of this encounter Visit Diagnoses Not on filedocumented in this encounter Care Teams Deburrer Relationship Specialty Start Date End Date Baljeet Doran MD [address] [address] PCP - General 11/24/16 documented as of this encounter
--- OUTSIDE RECORDS SUMMARY | 2024-07-20 15:37 | XMS_ITS | Encounter Summary ---
Author Organization [facility] Address [facility]6 [facility] [place] [address] [place] [address] Care Team Providers Care Hand Alterations Seamstress Name Role Phone Baljeet Doran MD Primary Care Provider Encounter Details Date Type Department Care Team (Late st Contact Info) Description 05/03/2017 Abstract [facility] Multispecialty Care - [facility] [address] [facility], [address] [place] [id number] Winsome Nathan, APNP [address] [address] Social History Tobacco Use Types Packs/Day Years Used Date Smoking Tobacco: Never Assessed Sex and Gender Information Value Date Recorded Sex Assigned at Not on file Legal Sex Male 12:41 AM CDT Gender Identity Not on file Sexual Orientation Not on file documented as of this encounter Progress Notes * Generic Conversion MD Joe - 05/03/2017 1:00 PM CDT Message Recorded as Task Date: 04/27/2017 06:22 PM, Created By: System Task Name: Referral Request Assigned To: Josiane Knowles Regarding Patient: Raffaele Valenzuela, Status: In Progress Comment: System - 27 Apr 2017 6:22 PM To: Josiane Knowles Recipient DirectID: [email or web address] From: Baljeet Doran MD Sender DirectID: Order ID: [id number] Kala Christie 28 Apr 2017 10:02 AM TASK EDITED Left message for the patient to set up IOV. Kala Christie 28 Apr 2017 10:02 AM TASK IN PROGRESS Kala Christie 28 Apr 2017 12:39 PM TASK EDITED Patient has IOV on 05/03/17. Kala Christei 03 May 2017 3:36 PM TASK EDITED Patient no showed for his IOV on 05/03/17. 1st no show letter has been mailed to the patient. Signatures Electronically signed by : Kala Jones MA; May 26 2017 12:02PM BEAN SNAPPER (Author) documented in this encounter Miscellaneous Notes * Letter - BIBIANA Hager - 05/03/2017 3:36 PM CDT Message Appointment Status: The patient no showed for his/her appointment. Patient Communication: The patient was called regarding the missed appointment. on [phone]. Result: Patient could not be reached. Message left to return call. Left message for the patient to call the office if he wishes to R/S. Signatures Electronically signed by : Kala Christie, ; May 03 2017 3:38PM BEAN SNAPPER (Author) documented in this encounter Plan of Treatment Not on file documented as of this encounter Visit Diagnoses Not on filedocumented in this encounter Care Teams Hand Alterations Seamstress Relationship Specialty Start Date End Date Baljeet Doran MD [address] [facility] [address] [place] [address] PCP - General 11/24/16 documented as of this encounter
--- OUTSIDE RECORDS SUMMARY | 2024-07-20 15:37 | XMS_ITS | Encounter Summary ---
Author Organization [facility] Address [facility]6 [facility] [place] [address] [place] [address] Care Team Providers Care Beach Attendant Name Role Phone Baljeet Doran MD Primary Care Provider Encounter Details Date Type Department Care Team (Late st Contact Info) Description 11/12/2018 6:49 PM CDT - 11/12/2018 11:59 PM T Hospital Encounter [facility] [address] [place] [place] [address] Lyndsey Hogue, DO [address] [place], [place] [phone] Discharge Disposition: Home or Self Care (Routine Discharge) Social History Tobacco Use Types Packs/Day Years Used Date Smoking Tobacco: Never Smokeless Tobacco: Never Sex and Gender Information Value Date Recorded Sex Assigned at Not on file Legal Sex Male 12:41 AM CDT Gender Identity Not on file Sexual Orientation Not on file documented as of this encounter Medications at Time of Discharge cyclobenzaprine 10 MG tabletIndications :Sore throat Take 1 tablet (10 mg total) by mouth 3 (three) times daily as needed for Muscle Spasms. 40 tablet 1 11/12/2018 12/25/2019 lidocaine viscous 2 % solutionIndicatio ns:Sore throat Take 5 mLs by mouth as needed for Pain. 100 mL 11/12/2018 11/22/2018 naproxen 500 MG tabletIndications :Sore throat Take 1 tablet (500 mg total) by mouth every 12 (twelve) hours as needed. 60 tablet 1 11/12/2018 12/31/2019 penicillin VK 500 MG tabletIndications :Sore throat Take 1 tablet (500 mg total) by mouth 2 (two) times daily for 10 days. 20 tablet 11/12/2018 11/22/2018 documented as of this encounter Plan of Treatment Not on file documented as of this encounter Procedures Procedure Name Priority Date/Time Associated Diagnosis Comments CULTURE THROAT ALL ORG Routine 11/12/2018 2:22 PM CDT Sore throat documented in this encounter Results * CULTURE THROAT ALL ORG (11/12/2018 2:22 PM CDT) SPEC DESCRIPTION THROAT 11/12/2018 6:50 PM CDT [facility] SPECIAL REQUESTS NO SPECIAL REQUEST 11/12/2018 6:50 PM CDT [facility] CULTURE RESULT LIGHT GROWTH OF NORMAL KAPIL PRESENT 11/14/2018 8:59 AM CDT [facility] THROAT SWAB / Unknown 11/12/2018 2:22 PM CDT 11/12/2018 6:52 PM CDT Lyndsey Hogue DO MICROBIOLOGY - GENERAL ORDERA BLES Final Result [facility] [address] [place] [address], documented in this encounter Visit Diagnoses Diagnosis Sore throat Acute pharyngitis documented in this encounter Care Teams Beach Attendant Relationship Specialty Start Date End Date Baljeet Doran MD [address] [place] [address] PCP - General 11/24/16 documented as of this encounter
--- OUTSIDE RECORDS SUMMARY | 2024-07-20 15:37 | XMS_ITS | Encounter Summary ---
Author Organization [facility] Address [facility] [facility] [place] [address] [place] [address] Care Team Providers Care Real Estate Accountant Name Role Phone Baljeet Doran MD Primary Care Provider Reason for Referral * Consultation (Urgent) - Closed Specialty Diagnoses / Procedures Referred By Contac t Referred To Contact ORTHOPAEDIC SURGERY Diagnoses Closed displaced fracture of acromial end of right clavicle with routine healing, subsequent encounter Baljeet Doran MD [address] [address] Phone: tel: fax: Andi Eugene MD [address] [facility] [address] [place] [address] Phone: tel: fax: Referral ID Status Reason Start Date Expiration Date V isits Requested Visits Authorized [id number] Closed Specialty Services 11/03/2020 12/04/2021 1 1 Scheduling Instructions 40 yo male who fell at the bottom of the stairs and landed on the right shoulder. He had pain and was seen the next day in the ER and noted to have a severely comminuted distal clavicular fracture. He continues to have pain despite hydrocodone 5.325 mg po bid. He is in an arm sling. Please eval & treat, thanks. Reason for Visit * Reason Comments Follow Up patient reports a fa ll down some stairs Encounter Details Date Type Department Care Team (Late st Contact Info) Description 11/03/2020 9:40 AM CDT Office Visit [facility] Family Medicine - [address], [address] [place] [address] Baljeet Doran MD [address] [place] [address] Follow Up (patient reports a fall down some stairs) Social History Tobacco Use Types Packs/Day Years [...] have Coronavirus / COVID-19? No / Unsure 11/03/2020 9:33 AM CDT documented as of this encounter Last Filed Vital Signs Vital Sign Reading Time Taken Comments Blood Pressure 128/80 11/03/2020 9:46 AM CDT Pulse 116 11/03/2020 9:46 AM CDT Temperature 36.7 ??C (98.1 ??F) 11/03/2020 9:46 AM CD T Respiratory Rate 17 11/03/2020 9:46 AM CDT Oxygen Saturation 97% 11/03/2020 9:46 AM CDT Inhaled Oxygen Concentration - - Weight 76.8 kg (169 lb 6.4 oz) 11/03/2020 9:46 A M CDT Height 177.8 cm (5' 10 ) 11/03/2020 9:46 AM CDT Body Mass Index 24.31 11/03/2020 9:46 AM CDT documented in this encounter Progress Notes * Baljeet Doran MD - 11/03/2020 9:40 AM CDT Images from the original note were not included. OFFICE VISIT Encounter Date: 11/03/2020 Chief Complaint: 40-year-old male presents for Follow Up (patient reports a fall down some stairs) . HPI He was seen in the ER after a fall at the bottom of the stairs. (He was running to catch the [employer] and fell when he got to the bottom of the stairs). He had right shoulder pain and decreased ROM, X-ray comminuted distal clavicular fracture. He does have an elevated pulse. He was given hydrocodone 5/325 qid and ibuprofen PRN. He is still in pain and will need a referral to orthopedics. He is in a sling. He has some pain in the mid lower back as well. NO blood in the urine, no abdominal swelling. He had an uncontrolled BP of 148/101 in ER that day after his fall when he was having quite a bit of pain. BP improved today to 128/80 without medication. Review of Systems Constitutional: Negative for chills, fever, malaise/fatigue and weight loss. HENT: Negative for congestion, ear discharge, ear pain, hearing loss, nosebleeds, sinus pain, sore throat and tinnitus. Eyes: Negative for blurred vision, pain, discharge and redness. Respiratory: Negative for cough, hemoptysis, sputum production, shortness of breath and wheezing. Cardiovascular: Negative for chest pain and leg swelling. Gastrointestinal: Positive for constipation. Negative for abdominal pain, blood in stool, diarrhea,heartburn, nausea and vomiting. Genitourinary: Negative for dysuria, flank pain, frequency, hematuria and urgency. Musculoskeletal: Positive for joint pain (right shoulder pain). Negative for back pain, myalgias and neck pain. Skin: Negative for itching and rash. Neurological: Negative for dizziness, tingling, tremors, focal weakness, seizures, loss of consciousness and headaches. Endo/Heme/Allergies: Negative for polydipsia. Does not bruise/bleed easily. Psychiatric/Behavioral: Negative for depression. The patient is not nervous/anxious and does not have insomnia. Patient Active Problem List Diagnosis ??? Hyperlipidemia ??? Epididymal cyst ??? Obesity ??? Testicular mass ??? Chronic pain of right knee ??? Knee effusion, right ??? Furuncle of lower leg ??? Bucket-handle tear of medial meniscus of right knee as current injury, subsequent encounter ??? Alcohol dependence with alcohol-induced anxiety disorder (CMS/HCC) Past Medical History: Diagnosis Date ??? ADD (attention deficit disorder) ??? Alcoholism (CMS/HCC) ??? Anxiety ??? Compartment syndrome (CMS/HCC) Past Surgical History: Procedure Laterality Date ??? AMPUTATION FINGER Left fingertip amp, reattached ??? CARPAL TUNNEL RELEASE Right right and left sides ??? DENTAL PROCEDURE wisdom teeth ??? FASCIOTOMY,ILIOTIBIAL,OPEN Left ??? KNEE SCOPE,MED OR LAT MENIS REPAIR Right 12/2019 ??? KNEE SURGERY Family History Problem Relation [...] resource strain: Not on file ??? Food insecurity Worry: Not on file Inability: Not on file ??? Transportation needs Medical: Not on file Non-medical: Not on file Tobacco Use ??? Smoking status: Never Smoker ??? Smokeless tobacco: Never Used Substance and Sexual Activity ??? Alcohol use: Yes Comment: daily 1/5 hard liquor ??? Drug use: Never ??? Sexual activity: Not on file Lifestyle ??? Physical activity Days per week: Not on file Minutes per session: Not on file ??? Stress: Not on file Relationships ??? Social connections Talks on phone: Not on file Gets together: Not on file Attends hindu service: Not on file Active member of club or organization: Not on file Attends meetings of clubs or organizations: Not on file Relationship status: Not on file ??? Intimate partner violence Fear of current or ex partner: Not on file Emotionally abused: Not on file Physically abused: Not on file Forced sexual activity: Not on file Other Topics Concern ??? Not on file Social History Narrative ??? Not on file There is no immunization history on file for this patient. Current Outpatient Medications Medication Sig Dispense Refill ??? docusate sodium 100 MG capsule Take 1 capsule (100 mg total) by mouth 2 (two) times daily for 21 days. 42 capsule 0 ??? HYDROcodone-acetaminophen (NORCO) 5-325 MG tablet Take 1 tablet by mouth every 6 (six) hours asneeded. Indications: Acute Pain < 7 Day Supply 16 tablet 0 ??? ibuprofen 600 MG tablet Take 1 tablet (600 mg total) by mouth every 6 (six) hours as needed. 30tablet 0 ??? naproxen 500 MG tablet Take 1 tablet (500 mg total) by mouth every 12 (twelve) hours as needed.Take one tab twice daily with food for 7 days. Then take only as needed. 60 tablet 1 No current facility-administered medications for this visit. No Known Allergies Objective: Filed Vitals: 11/03/20 0946 BP: 128/80 Pulse: 116 Resp: 17 Temp: 98.1 ??F (36.7 ??C) TempSrc: Temporal SpO2: 97% Weight: 76.8 kg (169 lb 6.4 oz) Height: 5' 10 (1.778 m) Body mass index is 24.31 kg/m??. Physical Exam Constitutional: He is oriented to person, place, and time and well-developed, well-nourished, and in no distress. No distress. HENT: Head: Normocephalic and atraumatic. Eyes: Right eye exhibits no discharge. Left eye exhibits no discharge. Pulmonary/Chest: Effort normal. No respiratory distress. Musculoskeletal: General: Tenderness (about the clavicle and with most active and passive movements of the right shoulder, strength and ROM decreased secondary to pain) present. Neurological: He is alert and oriented to person, place, and time. Gait normal. Skin: He is not diaphoretic. Psychiatric: Mood, memory, affect and judgment normal. Nursing note and vitals reviewed. Assessment: Patient Active Problem List Diagnosis ??? Hyperlipidemia ??? Epididymal cyst ??? Obesity ??? Testicular mass ??? Chronic pain of right knee ??? Knee effusion, right ??? Furuncle of lower leg ??? Bucket-handle tear of medial meniscus of right knee as current injury, subsequent encounter ??? Alcohol dependence with alcohol-induced anxiety disorder (CMS/HCC) Plan: Raffaele was seen today for follow up. Diagnoses and all orders for this visit: Closed displaced fracture of acromial end of right clavicle with routine healing, subsequent encounter - Ambulatory referral to Orthopedics (OTHER) Therapeutic opioid induced constipation - docusate sodium 100 MG capsule; Take 1 capsule (100 mg total) by mouth 2 (two) times daily for 21days. Discussion/Summary: 1. Closed displaced fracture of acromial end of right clavicle with routine healing, subsequent encounter He has a severely comminuted right clavicular fracture and will need a referral on to orthopedics. He will continue with the sling and do his best not to move it until instructed otherwise. 2. Therapeutic opioid induced constipation Will use colace 100 mg po bid. Will push oral fluids as well as try to get walk. Follow-up and Dispositions ?? Return if symptoms worsen or fail to improve. BALJEET DORAN MD documented in this encounter Plan of Treatment Scheduled Referrals Name Type Priority Associated Diagnoses Orde r Schedule Ambulatory referral to Orthopedics (OTHER) Referral STAT Closed displaced fracture of acromial end of right clavicle with routine healing, subsequent encounter Ordered: 11/03/2020 documented as of this encounter Visit Diagnoses Diagnosis Closed displaced fracture of acromial end of right clavicle with routine healing, subsequent encounter- Primary Therapeutic opioid induced constipation documented in this encounter Care Teams Real Estate Accountant Relationship Specialty Start Date End Date Baljeet Doran MD [address] [address] PCP - General 11/24/16 documented as of this encounter
--- OUTSIDE RECORDS SUMMARY | 2024-07-20 15:37 | XMS_ITS | Encounter Summary ---
Author Organization [facility] Address [facility], [id number] [facility] [place] [address] [place] [address] Care Team Providers Care Mold Bunch Trimmer Name Role Phone Baljeet Doran MD Primary Care Provider Reason for Referral * Consultation (Routine) - Closed Specialty Diagnoses / Procedures Referred By Keny kunz Referred To Contact UROLOGY Diagnoses Testicular cyst Baljeet Doran MD [address] [address] Phone: tel: fax: Jacky Leary MD Phone: tel: fax: Referral ID Status Reason Start Date Expiration Date Visits Re quested Visits Authorized [id number] Closed 08/06/2019 09/05/2020 100 100 OTYPE MACHINIST * Consultation (Urgent) - Closed Specialty Diagnoses / Procedures Referred By Contdeni t Referred To Contact ORTHOPAEDICS Diagnoses Chronic pain of right knee Baljeet Doran MD [address] [address] Phone: tel: fax: Delonte Agudeol MD Phone: tel: fax: Referral ID Status Reason Start Date Expiration Date V isits Requested Visits Authorized [id number] Closed Specialty Services 08/06/2019 09/05/2020 100 100 OTYPE MACHINIST * Imaging (Urgent) - Closed Specialty Diagnoses / Procedures Referred By Keny kunz Referred To Contact RADIOLOGY Diagnoses Chronic pain of right knee Procedures MRI KNEE RT WO CON Baljeet Doran MD [address] [facility] [address] [place] [address] Phone: tel: fax: Referral ID Status Reason Start Date Expiration Date Visits Re quested Visits Authorized [id number] Closed 08/06/2019 09/04/2019 1 1 OTYPE MACHINIST * Imaging (Routine) - Closed Specialty Diagnoses / Procedures Referred By Keny kunz Referred To Contact RADIOLOGY Diagnoses Testicular cyst Procedures US TESTICULAR Baljeet Doran MD [address] [place] [address] [place] [address] Phone: tel: fax: Referral ID Status Reason Start Date Expiration Date Visits Re quested Visits Authorized [id number] Closed 08/06/2019 09/06/2020 1 1 OTYPE MACHINIST Reason for Visit * Reason Comments Follow Up for almost a year hi s knee pops and locks when he bends and straightens his knee almost like dislocating. after a full days work he can't put full weight on his knee when getting up due to it possibly locking. also he has a cyst on his testical which is getting bigger and needs to see urologist. Encounter Details Date Type Department Care Team (Late st Contact Info) Description 08/06/2019 10:20 AM PROTOTYPE MACHINIST Office Visit [facility] Family Medicine - [address], [address] [place] [address] Baljeet Doran MD [address] [facility] [address] [place] [id number] Follow Up (for almost a year his knee pops and locks when he bends and straightens his knee almost like dislocating. after a full days work he can't put full weight on his knee when getting up due to it possibly locking. also he has a cyst on his testical which is getting bigger and needs to see urologist.) Social History Tobacco Use Types Packs/Day Years Used Date Smoking Tobacco: Never Smokeless Tobacco: Never Sex and Gender Information Value Date Recorded Sex Assigned at Not on file Legal Sex Male 12:41 AM CDT Gender Identity Not on file Sexual Orientation Not on file documented as of this encounter Last Filed Vital Signs Vital Sign Reading Time Taken Comments Blood Pressure 116/70 08/06/2019 10:22 AM PROTOTYPE MACHINIST Pulse 79 08/06/2019 10:22 AM PROTOTYPE MACHINIST Temperature - - Respiratory Rate 18 08/06/2019 10:22 AM PROTOTYPE MACHINIST Oxygen Saturation 97% 08/06/2019 10:22 AM PROTOTYPE MACHINIST Inhaled Oxygen Concentration - - Weight 86.2 kg (190 lb) 08/06/2019 10:22 AM PROTOTYPE MACHINIST Height 177.8 cm (5' 10 ) 08/06/2019 10:22 AM PROTOTYPE MACHINIST Body Mass Index 27.26 08/06/2019 10:22 AM PROTOTYPE MACHINIST documented in this encounter Progress Notes * Baljeet Doran MD - 08/06/2019 10:20 AM CST Images from the original note were not included. OFFICE VISIT Encounter Date: 08/06/2019 Chief Complaint: 39-year-old male presents for Follow Up (for almost a year his knee pops and locks when he bends and straightens his knee almost like dislocating. after a full days work he can't put full weight on his knee when getting up due to it possibly locking. also he has a cyst on his testical which is getting bigger and needs to see urologist.) . HPI He has complaints of right knee pain, no prior films. He does walking for exercise about 1.5 miles every other day. 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 At times he cannot put hisweight on it. He feels like it pops in and out with very loud audible clicking and popping. He has had more pain over the last 6 months. He has locking that prevents him from straightening. He has nospecific injury. This has been pretty bad for about 10 months. He has a testicular cyst that is growing in size and will need repeat imaging and possible referralto urology. This is causing some discomfort and possibly affecting the testicle. He has a h/o impaired fasting glucose, HLP and hypertriglyceridemia and has not had any recent fasting labs. Patient Active Problem List Component Date Value Ref Range Status ??? Spec. Description 11/12/2018 THROAT Final ??? Special Requests: 11/12/2018 NO SPECIAL REQUEST Final ??? Culture Result: 11/12/2018 Final Value:LIGHT GROWTH OF NORMAL KAPIL PRESENT Review of Systems Constitutional: Negative for chills and fever. HENT: Negative for congestion, ear pain, sinus pain and sore throat. Eyes: Negative for discharge and redness. Respiratory: Negative for cough, sputum production, shortness of breath and wheezing. Cardiovascular: Negative for chest pain and leg swelling. Gastrointestinal: Negative for abdominal pain, blood in stool, constipation, diarrhea, heartburn, nausea and vomiting. Genitourinary: Negative for dysuria, flank pain, frequency, hematuria and urgency. Musculoskeletal: Positive for joint pain (right knee pain and locking with loud popping). Negative for back pain and myalgias. Neurological: Negative for dizziness and headaches. Psychiatric/Behavioral: Negative for depression. The patient is not nervous/anxious and does not have insomnia. Patient Active Problem List Diagnosis ??? Hyperlipidemia ??? Epididymal cyst ??? Obesity ??? Testicular mass History reviewed. No pertinent past medical history. History reviewed. No pertinent surgical history. No family history on file. Social History Socioeconomic History ??? Marital status: [...] Substance and Sexual Activity ??? Alcohol use: Not on file ??? Drug use: Not on file ??? Sexual activity: Not on file Lifestyle ??? Physical activity: Days per week: Not on file Minutes per session: Not on file ??? Stress: Not on file Relationships ??? Social connections: Talks on phone: Not on file Gets together: Not on file Attends yarsani service: Not on file Active member of [...] Outpatient Medications Medication Sig Dispense Refill ??? cyclobenzaprine 10 MG tablet Take 1 tablet (10 mg total) by mouth 3 (three) times daily as needed for Muscle Spasms. 40 tablet 1 ??? naproxen 500 MG tablet Take 1 tablet (500 mg total) by mouth every 12 (twelve) hours as needed.60 tablet 1 No current facility-administered medications for this visit. No Known Allergies Objective: Filed Vitals: 08/06/19 1022 BP: 116/70 Pulse: 79 Resp: 18 SpO2: 97% Weight: 86.2 kg (190 lb) Height: 5' 10 (1.778 m) Body mass index is 27.26 kg/m??. Physical Exam Constitutional: He is oriented to person, place, and time and well-developed, well-nourished, and in no distress. No distress. HENT: Head: Normocephalic and atraumatic. Eyes: Right eye exhibits no discharge. Left eye exhibits no discharge. Pulmonary/Chest: Effort normal. No respiratory distress. Musculoskeletal: Normal range of motion. He exhibits no edema or tenderness (he has locking and demonstrates loud clunking when getting up from a kneeling position, normal strength). Neurological: He is alert and oriented to person, place, and time. Gait normal. Skin: He is not diaphoretic. Psychiatric: Mood, memory, affect and judgment normal. Nursing note and vitals reviewed. Assessment: Patient Active Problem List Diagnosis ??? Hyperlipidemia ??? Epididymal cyst ??? Obesity ??? Testicular mass Plan: Raffaele was seen today for follow up. Diagnoses and all orders for this visit: Mixed hyperlipidemia - LIPID PANEL; Future - LIPID PANEL Hypertriglyceridemia - LIPID PANEL; Future - LIPID PANEL Impaired fasting glucose - BASIC METABOLIC PANEL; Future - BASIC METABOLIC PANEL Chronic pain of right knee - XR KNEE+SUNRISE RT 3V; Future - XR KNEE+SUNRISE RT 3V - MRI KNEE RT WO CON; Future - AMBULATORY REFERRAL TO SPORTS MEDICINE - MRI KNEE RT WO CON Testicular cyst - US TESTICULAR; Future - AMB REFERRAL TO UROLOGY - US TESTICULAR Discussion/Summary: 1. Mixed hyperlipidemia Will repeat labs. Will have the nurse call back with results and plan. 2. Hypertriglyceridemia Will repeat labs. 3. Impaired fasting glucose Will repeat labs, he has lost quite a bit of weight and is eating healthier and exercising at work. 4. Chronic pain of right knee Will need plain films and an MRI, will also refer on to sports medicine for treatment as this is affecting his livelihood. 5. Testicular cyst Will repeat testicular US due to growth, but also refer on to urology for further evaluation and treatment. Follow-up and Disposition Return if symptoms worsen or fail to improve. BALJEET DORAN MD OTYPE MACHINIST * Baljeet Doran MD - 08/06/2019 10:20 AM CST Will try to get the MRI approved as they just wanted this to prove there was no fracture, will process this Monday OTYPE MACHINIST documented in this encounter Plan of Treatment Scheduled Orders Name Type Priority Associated Diagnoses Orde r Schedule LIPID PANEL Lab Routine Mixed hyperlipidemia Hypertriglyceridemia Expected: 08/06/2019, Expires: 08/06/2020 BASIC METABOLIC PANEL Lab Routine Impaired fasting glucose Expected: 08/06/2019, Expires: 08/06/2020 US TESTICULAR Ultrasound Routine Testicular cyst Expected: 08/06/2019, Expires: 08/06/2020 MRI KNEE RT WO CON MRI [facility] Chronic pain of right knee Expected: 08/06/2019, Expires: 08/06/2020 Scheduled Referrals Name Type Priority Associated Diagnoses Orde r Schedule Ambulatory Referral to Sports Medicine Referral Routine Chronic pain of right knee Ordered: 08/06/2019 Ambulatory referral to Urology (OTHER) Referral Routine Testicular cyst Ordered: 08/06/2019 documented as of this encounter Procedures Procedure Name Priority Date/Time Associated Diagnosis Comments XR KNEE+SUNRISE RT 3V Routine 08/09/2019 Chronic pain of right knee documented in this encounter Results * XR KNEE+SUNRISE RT 3V (08/09/2019) Anatomical Region Laterality Modality Knee Radiographic Ree ging Baljeet Droan MD GENERAL IMAGING Edited Result - Final documented in this encounter Visit Diagnoses Diagnosis Mixed hyperlipidemia- Primary Hypertriglyceridemia Pure hyperglyceridemia Impaired fasting glucose Chronic pain of right knee Testicular cyst Other specified disorder of male genital organs documented in this encounter Care Teams Mold Bunch Trimmer Relationship Specialty Start Date End Date Baljeet Doran MD [address] [facility] [address] [place] [address] PCP - General 11/24/16 documented as of this encounter
--- OUTSIDE RECORDS SUMMARY | 2024-07-20 15:37 | XMS_ITS | Encounter Summary ---
Author Organization [facility] Address [facility] [facility] 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 Name Role Phone Baljeet Doran MD Primary Care Provider Reason for Referral * (Routine) - Closed Specialty Diagnoses / Procedures Referred By Contac t Referred To Contact Diagnoses Chronic pain of right knee Internal derangement of right knee Knee effusion, right Procedures Right knee cortisone injection aspiration Madison Murillo MD Phone: tel: fax: Referral ID Status Reason Start Date Expiration Date Visits Re quested Visits Authorized [id number] Closed 10/25/2019 11/23/2020 1 1 * Imaging (Routine) - Closed Specialty Diagnoses / Procedures Referred By Contac t Referred To Contact RADIOLOGY Diagnoses Chronic pain of right knee Internal derangement of right knee Knee effusion, right Procedures MRI KNEE RT WO CON Madison Murillo MD Phone: tel: fax: Referral ID Status Reason Start Date Expiration Date Visits Re quested Visits Authorized [id number] Closed 10/29/2019 11/27/2019 1 1 Reason for Visit * Reason Comments Knee Pain R knee pain * Consultation (Urgent) - Closed Specialty Diagnoses / Procedures Referred By Contac t Referred To Contact ORTHOPAEDICS Diagnoses Chronic pain of right knee Baljeet Doran MD [address] [place] [address] Phone: tel: fax: Delonte Agudelo MD Phone: tel: fax: Referral ID Status Reason Start Date Expiration Date V isits Requested Visits Authorized [id number] Closed Specialty Services 08/06/2019 09/05/2020 100 100 Encounter Details Date Type Department Care Team (Latest Contact Info) Description 10/25/2019 9:00 AM CDT Office Visit [facility] [address], [address] [place] [address] Madison Murillo MD [address], [place] [id number] Knee Pain (R knee pain ) Social History Tobacco Use Types Packs/Day Years [...] Sign Reading Time Taken Comments Blood Pressure 140/88 10/25/2019 9:26 AM CDT Pulse 109 10/25/2019 9:26 AM CDT Temperature - - Respiratory Rate - - Oxygen Saturation - - Inhaled Oxygen Concentration - - Weight 85.3 kg (188 lb) 10/25/2019 9:26 AM CDT Height 177.8 cm (5' 10 ) 10/25/2019 9:26 AM CDT Body Mass Index 26.98 10/25/2019 9:26 AM CDT documented in this encounter Progress Notes * Madison Murillo MD - 10/25/2019 9:00 AM CDTAssociated Order(s): Right knee cortisone injection aspiration Post-Procedure Diagnose(s): Chronic pain of right knee; Internal derangement of right knee; Knee effusion, right Images from the original note were not included. Office Progress Note Reason for Visit: Knee Pain (R knee pain ) History of Present Illness: Patient referred for evaluation of chronic right knee pain symptoms. Presented to his primary care physician in July for similar symptomatology. At that time had x-ray and MRI ordered MRI was declined by his insurance company. X-ray nonweightbearing showed degenerative changes patellofemoral compartment. Treated conservatively with naproxen medication and Mnoty wrap. Patient has had intermittentpersistent pain symptoms since that time recent worsening over the last month. Has locking sensation in the knee at times. Significant difficulty bending the knee fully and doing deep knee bends due to pain symptoms. Intermittent swelling at times. 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 Patient has continue to work throughout the course of his injury over this last week is had to take time off due to pain symptoms and locking sensation in the knee. Patient reports on and off knee pain symptoms on that right side going on a year or more but as stated above worsening since beginning of this year. Patient denies any significant trauma, fall, twisting injury. No prior history of surgery or injection. Has not had any physical therapy for this. Pain is generally aching sometimes sharp stabbing always localized on the medial aspect of the knee andpatellofemoral compartment. No radiation into the lower leg or ankle. Patient would like to avoid surgery if possible. Starting to enter the busy point of his work season would like to be able to work throughout the season if he can get his pain symptoms under control. Past medical/surgical/medication was history reviewed updated as written below. ROS: Musculoskeletal: See HPI Constitutional: Negative for fever, chills, systemic symptoms Skin: Negative for rash/skin infection Neurological: Negative radicular pain Respiratory: Negative. Cardiovascular: Negative Endo/Heme/Allergies: Negative. Medications: Current Outpatient Medications: ??? naproxen 500 MG tablet, Take 1 tablet (500 mg total) by mouth 2 (two) times daily., Disp: 60 tablet, Rfl: 3 ??? amphetamine-dextroamphetamine 5 MG tablet, Take 1 [...] as needed., Disp: 60 tablet, Rfl: 1 Current Facility-Administered Medications: ??? triamcinolone acetonide (KENALOG-40) injection 40 mg, 40 mg, Intra- articular, Once, Madison Murillo MD Allergies: No Known Allergies Medical History: No past medical history on file. Surgical History: No past surgical history on file. Social History: Social History Socioeconomic History ??? [...] file Gets together: Not on file Attends congregation service: Not on file Active member of [...] family history on file. VITALS: Filed Vitals: 10/25/19 0926 BP: 140/88 Pulse: 109 Weight: 85.3 kg (188 lb) Height: 5' 10 (1.778 m) PE: Physical exam: General: Patient's appearance is normal, well-nourished, well-developed, no apparent distress Neuro psych: Alert and oriented x4, normal voice/speech/tone, normal judgment and mood Skin: No significant rash or erythematous eruption, swelling or evidence of skin infection Neuromuscular: General strength and tone throughout normal gait is antalgic, limping Musculoskeletal: Right knee: Moderate effusion, no redness or rash. No muscular atrophy. Tenderness palpation medialjoint line and medial patellofemoral compartment. No lateral joint line condyle or tibial plateau tenderness to palpation. No medial femoral condyle tenderness palpation. Range of motion 0 to 130 degrees pain and stiffness at terminal flexion. Negative varus valgus stress for instability. Negative posterior drawer negative Lockman. Mallory's positive for pain medially but no clicking or popping.Mallory's negative laterally. Extensor mechanism intact normal strength. Negative patellar grind. Right knee cortisone injection aspiration Date/Time: 10/25/2019 10:44 AM Performed by: Madison Murillo MD Authorized by: Madison Murillo MD Indications: pain Body area: knee Joint: right knee Local anesthesia used: yes Anesthesia: local infiltration Anesthesia: Local anesthesia used: yes Local Anesthetic: lidocaine 2% without epinephrine Anesthetic total: 2 mL Sedation: Patient sedated: no Preparation: Patient was prepped and draped in the usual sterile fashion. Needle size: 22 G Ultrasound guidance: yes Approach: lateral Aspirate: yellow and clear Aspirate amount: 40 mL Triamcinolone amount: 40 mg Lidocaine 2% amount: 3 mL Patient tolerance: Patient tolerated the procedure well with no immediate complications Oxr Rt Knee 3v Result Date: 10/25/2019 Right knee Findings: No acute osseous abnormality, fracture, dislocation. enesthophyte superior patellar pole. Mild degenerative changes patellofemoral compartment. No significant medial lateral joint space narrowing or degenerative changes. Moderate effusion. Diagnoses/Impression: 1. Chronic pain of right knee naproxen 500 MG tablet MRI KNEE RT WO CON ARTHROCENTESIS MAJOR JOINT W/ ULTRASOUND GUIDANCE triamcinolone acetonide (KENALOG-40) injection 40 mg 2. Internal derangement of right knee naproxen 500 MG tablet MRI KNEE RT WO CON ARTHROCENTESIS MAJOR JOINT W/ ULTRASOUND GUIDANCE triamcinolone acetonide (KENALOG-40) injection 40 mg 3. Knee effusion, right MRI KNEE RT WO CON ARTHROCENTESIS MAJOR JOINT W/ ULTRASOUND GUIDANCE triamcinolone acetonide (KENALOG-40) injection 40 mg Recommendations and Plan: Right knee pain/internal derangement/meniscal tear: Exam more consistent with meniscal etiology as to the underlying cause of his pain symptoms and mechanical symptoms. Cortisone injection completed today to help alleviate pain symptoms after aspiration of 40 cc of fluid. Education on nature of condition and my diagnostic thoughts. Given mechanical symptoms will obtain MRI to rule out significantmeniscal tear that may be best treated with surgical intervention down the road. Continue naproxen twice daily as needed for pain symptoms. We will have him follow-up in 1 month to review MRI and seehow this cortisone injections were performed. Hold off on work activities over the next 3 to 4 days to wait for the effect of the cortisone injection. Compressive knee brace also provided patient to help alleviate pain symptoms and sport any better. Routine postinjection precautions. MADISON MURILLO MD 10/25/2019 documented in this encounter Plan of Treatment Scheduled Orders Name Type Priority Associated Diagnoses Orde r Schedule Arthrocentesis, aspiration and/or injection, major joint or bursa; with ultrasound guidance, with permanent recording and reporting Procedures Routine Chronic pain of right knee Internal derangement of right knee Knee effusion, right Ordered: 10/25/2019 documented as of this encounter Procedures Procedure Name Priority Date/Time Associated Diagnosis Comments JOINT ASPIRATION/INJECTIO N Routine 10/25/2019 9:00 AM CDT Chronic pain of right knee Internal [...] By: Rick Huynh MD, 11/01/2019 5:42 PM Madison Murillo MD MRI Final Result * Right knee cortisone injection aspiration (10/25/2019 9:00 AM CDT) Madison Lott MD - 10/25/2019 9:00 AM CDT Madison Murillo MD ? 10/25/2019 10:54 AM Right knee cortisone injection aspiration Date/Time: 10/25/2019 10:44 AM Performed by: Madison Murillo MD Authorized by: Madison Murillo MD Indications: pain Body area: knee Joint: right knee Local anesthesia used: yes Anesthesia: local infiltration Anesthesia: Local anesthesia used: yes Local Anesthetic: lidocaine 2% without epinephrine Anesthetic total: 2 mL Sedation: Patient sedated: no Preparation: Patient was prepped and draped in the usual sterile fashion. Needle size: 22 G Ultrasound guidance: yes Approach: lateral Aspirate: yellow and clear Aspirate amount: 40 mL Triamcinolone amount: 40 mg Lidocaine 2% amount: 3 mL Patient tolerance: Patient tolerated the procedure well with no immediate complications Madison Murillo MD PROCEDURE/MINOR SURGICAL ORDERA BLES Final Result documented in this encounter Visit Diagnoses Diagnosis Chronic pain of right knee- Primary Internal derangement of right knee Unspecified internal derangement of knee Knee effusion, right Effusion of lower leg joint Chronic pain of right knee Internal derangement of right knee Unspecified internal derangement of knee Knee effusion, right Effusion of lower leg joint documented in this encounter Administered Medications Inactive Administered Medications - up to 3 most recent administrations Medication Order MAR Action Action Date Dose Rate Site triamcinolone acetonide (KENALOG-40) injection 40 mg 40 mg, Intra-articular, Once, 1 dose, On Mon10/25/19 at 1100, Shake WellIndications:Chronic pain of right knee,Internal derangement of right knee,Knee effusion, right Given 10/25/2019 2:51 PM CDT 40 mg Right Knee documented in this encounter Care Teams Carton Stenciler Relationship Specialty Start Date End Date Baljeet Doran MD [address] [facility] [address] [place] [address] PCP - General 11/24/16 documented as of this encounter
--- OUTSIDE RECORDS SUMMARY | 2024-07-20 15:37 | XMS_ITS | Encounter Summary ---
Author Organization [facility] Address Formerly [facility] [place] [address] [place] [address] Care Team Providers Care Pipe Fitter Helper Name Role Phone Baljeet Doran MD Primary Care Provider Encounter Details Date Type Department Care Team (Late st Contact Info) Description 04/26/2017 Abstract [facility] Family Medicine - [place] [address] [place] [phone] Baljeet Doran MD [address] [place], [place] [id number] Social History Tobacco Use Types Packs/Day Years Used Date Smoking Tobacco: Never Assessed Sex and Gender Information Value Date Recorded Sex Assigned at Not on file Legal Sex Male 12:41 AM CDT Gender Identity Not on file Sexual Orientation Not on file documented as of this encounter Last Filed Vital Signs Vital Sign Reading Time Taken Comments Blood Pressure 124/74 04/26/2017 8:51 AM CDT Pulse 66 04/26/2017 8:51 AM CDT Temperature - - Respiratory Rate - - Oxygen Saturation - - Inhaled Oxygen Concentration - - Weight 101.6 kg (224 lb) 04/26/2017 8:51 AM CDT Height 177.8 cm (5' 10 ) 04/26/2017 8:51 AM CDT Body Mass Index 32.14 04/26/2017 8:51 AM CDT documented in this encounter Progress Notes * Baljeet Doran MD - 04/26/2017 5:44 PM CDT Verified Results Basic Metabolic Prof ( BMP ) 24Apr2017 11:49AM Baljeet Doran Test Name Result Flag Reference Glucose 99 mg/dL 70-99 Blood Urea Nitrogen (BUN) 14 mg/dL 8-23 Creatinine 1.05 mg/dL 0.70-1.20 Sodium (Na) 139 mmol/L 136-145 Potassium (K) 5.0 mmol/L 3.5-5.1 Chloride (Cl) 102 mmol/L 98-107 Carbon Dioxide (CO2) 28 mmol/L 22-29 Calcium 9.4 mg/dL 8.6-10.2 Anion Gap 14 8-20 Glomerular Filt Rate Calc >60 mL/min/1.73m'2 >60 Glomerular Filt Rate (AA) Calc >60 >60 NOTE: eGFR is not calculated for patients <18 years of age. This is an estimated GFR (CKD EPI) and should not be used for calculating drug doses. mL/min/1.73m'2 Lipid Profile 24Apr2017 11:49AM Baljeet Doran Test Name Result Flag Reference CHOLESTEROL 213 MG/DL H <200 NOTE: Acetaminophen, N Acetyl p benzoquinone imine (NAPQI), N acetylcysteine (NAC), Metamizole, 4 Aminoantipyrine (4 AAP) and 4 Methylamino antipyrine (4 MAP) at high concentrations can cause falsely low results on Lactate, Uric Acid, Cholesterol, Triglyceride, HDL, and Direct LDL. TRIGLYCERIDE 221 MG/DL H <150 HDL CHOLESTEROL 43 MG/DL L >59 LDL CALCULATED 126 MG/DL H <100 Non HDL, Calc 170 MG/DL H <130 NOTE: WHEN THE TRIGLYCERIDES ARE >200 mg/dL, NON HDL C IS A SECONDARY TARGET OF THERAPY, WITH A GOAL 30 mg/dL HIGHER THAN THE IDENTIFIED LDL C GOAL. CHOL/HDL RATIO 5.0 H 0.0-4.5 VLDL Cholesterol 44 MG/DL 5-55 Lipid Profile Comment 1 (Report) NIH CONCENSUS REPORT RECOMMENDATIONS: ADULT CHILD LOW RISK: CHOLESTEROL <200 <170 TRIGLYCERIDE <150 --- HDL >=60 --- LDL <100 <110 BORDERLINE: CHOLESTEROL 200-239 170-199 TRIGLYCERIDE 150-199 --- HDL 40-59 --- LDL 100-159 110-129 HIGH RISK: CHOLESTEROL >=240 >=200 TRIGLYCERIDE >=200 --- HDL <40 --- LDL >=160 >=130 * Baljeet Doran MD - 04/26/2017 9:00 AM CDT Chief Complaint annual px with labs BMI 32.14 History of Present Illness HM, Adult Male: The patient is being seen for a health maintenance evaluation. The last health maintenance visit was 1 year(s) ago. General Health: The patient's health since the last visit is described as good. He has regular dental visits. He denies vision problems. He denies hearing loss. Lifestyle:. He does not have a healthy diet. He has weight concerns. He does not exercise regularly. He does not use tobacco. He consumes alcohol. He reports occasional alcohol use. He typically drinks once a week. Alcohol concern: The patient has no concerns about alcohol abuse. He denies drug use. Reproductive health:. He denies erectile dysfunction. no nocturia, no straining, no incomplete emptying, no constipation, no diarrhea. Screening: Prostate cancer screening includes no previous evaluation. Testicular cancer screening includes no previous evaluation. Colorectal cancer screening includes no previous screening. metabolic screening reviewed and current. HPI: He has hypertriglyceridemia with a TriG level of 221 and is still eating a lot of carbs. He has obesity with a BMI of 32 and will be working on both diet and exercise. He has had some pressure in the right ear and on the right side of the head. He has no drainage, bleeding or pain in the ear. He may have a bit of a balance issues, but no dizziness or lightheadedness. He has a loud rushing sound as well. No ringing in the ear. Review of Systems Constitutional: negative. Head and Face: negative. Eyes: negative. ENT: negative. Cardiovascular: negative. Respiratory: negative. Gastrointestinal: negative. Genitourinary: negative. Musculoskeletal: negative. Neurological: negative. Psychiatric: negative. Endocrine: negative. Hematologic and Lymphatic: negative. Active Problems 1. Hyperlipidemia (272.4) (E78.5) 2. Impaired fasting glucose (790.21) (R73.01) 3. Testicular mass (608.89) (N50.9) Surgical History ?? History of Elbow Surgery ?? repair in 2007 work accident on the left, right side in 2000 Family History Father ?? Family history of coronary arteriosclerosis (V17.3) (Z82.49) ?? Family history of stroke (V17.1) (Z82.3) Maternal Grandmother ?? Family history of stroke (V17.1) (Z82.3) Social History ? mother Jyothi Ferguson, mother's dog a little pug ?? High school graduate ?? Lack of exercise (V69.0) (Z72.3) ?? Never smoker ?? No drug use ?? No scientology beliefs ?? Occasional alcohol use ?? beer on special occasions ?? Occupation ?? [employer] ?? Recreational activities ?? dirt track racing events, baseball games, socializing with family Current Meds 1. Cyclobenzaprine HCl - 10 MG Oral Tablet; TAKE 1 TABLET AT BEDTIME; Therapy: 24Nov2016 to (Evaluate:22Dec2016) Requested for: 24Nov2016; Last Rx:[id number] Ordered Rx By: Baljeet Doran; Dispense: 14 Days ; #:14 Tablet; Refill: 1; For: PMH: Upper back pain; ANTONIETTA= N; Verified Transmission to [facility]; Last Updated By: Morning Tec; 11/24/2016 9:54:56 AM 2. Naproxen 500 MG Oral Tablet; TAKE 1 TABLET EVERY 12 HOURS NEEDED; Therapy: 24Nov2016 to (Evaluate:22Dec2016) Requested for: 24Nov2016; Last Rx:[id number] Ordered Rx By: Baljeet Doran; Dispense: 14 Days ; #:28 Tablet; Refill: 1; For: PMH: Upper back pain; ANTONIETTA= N; Verified Transmission to [facility]; Last Updated By: Morning Tec; 04/26/2017 8:54:16 AM Allergies 1. No Known Drug Allergies Recorded By: Kamille Willson; 05/25/2016 8:22:23 AM Vitals Recorded: 26Apr2017 08:51AM Temperature 97.6 F, Oral Heart Rate 66 Respiration 18 Systolic 124, L Brachial Artery, Sitting Diastolic 74, L Brachial Artery, Sitting O2 Saturation 98 Height 5 ft 10 in Weight 224 lb BMI Calculated 32.14 BSA Calculated 2.19 Physical Exam Constitutional General appearance: No acute distress, well appearing and well nourished. Eyes Conjunctiva and lids: No swelling, erythema, or discharge. Pupils and irises: Equal, round and reactive to light. Ears, Nose, Mouth, and Throat External inspection of ears and nose: Normal. Otoscopic examination: Tympanic membrane translucent with normal light reflex. Canals patent without erythema. Oropharynx: Normal with no erythema, edema, exudate or lesions. Pulmonary Respiratory effort: No increased work of breathing or signs of respiratory distress. Auscultation of lungs: Clear to auscultation. Cardiovascular Auscultation of heart: Normal rate and rhythm, normal S1 and S2, without murmurs. Examination of extremities for edema and/or varicosities: Normal. Abdomen Abdomen: Non-tender, no masses. Liver and spleen: No hepatomegaly or splenomegaly. Lymphatic Palpation of lymph nodes in neck: No lymphadenopathy. Musculoskeletal Gait and station: Normal. Digits and nails: Normal without clubbing or cyanosis. Inspection/palpation of joints, bones, and muscles: Normal. Skin Skin and subcutaneous tissue: Normal without rashes or lesions. Neurologic Cranial nerves: Cranial nerves 2-12 intact. Reflexes: 2+ and symmetric. Sensation: No sensory loss. Psychiatric Orientation to person, place and time: Normal. Mood and affect: Normal. Results/Data Basic Metabolic Prof ( BMP ) 24Apr2017 11:49AM AndreeaBaljeet low Test Name Result Flag Reference Glucose 99 mg/dL 70-99 Blood Urea Nitrogen (BUN) 14 mg/dL 8-23 Creatinine 1.05 mg/dL 0.70-1.20 Sodium (Na) 139 mmol/L 136-145 Potassium (K) 5.0 mmol/L 3.5-5.1 Chloride (Cl) 102 mmol/L 98-107 Carbon Dioxide (CO2) 28 mmol/L 22-29 Calcium 9.4 mg/dL 8.6-10.2 Anion Gap 14 8-20 Glomerular Filt Rate Calc >60 mL/min/1.73m'2 >60 Glomerular Filt Rate (AA) Calc >60 >60 NOTE: eGFR is not calculated for patients <18 years of age. This is an estimated GFR (CKD EPI) and should not be used for calculating drug doses. mL/min/1.73m'2 Lipid Profile 24Apr2017 11:49AM Baljeet Doran Test Name Result Flag Reference CHOLESTEROL 213 MG/DL H <200 NOTE: Acetaminophen, N Acetyl p benzoquinone imine (NAPQI), N acetylcysteine (NAC), Metamizole, 4 Aminoantipyrine (4 AAP) and 4 Methylamino antipyrine (4 MAP) at high concentrations can cause falsely low results on Lactate, Uric Acid, Cholesterol, Triglyceride, HDL, and Direct LDL. TRIGLYCERIDE 221 MG/DL H <150 HDL CHOLESTEROL 43 MG/DL L >59 LDL CALCULATED 126 MG/DL H <100 Non HDL, Calc 170 MG/DL H <130 NOTE: WHEN THE TRIGLYCERIDES ARE >200 mg/dL, NON HDL C IS A SECONDARY TARGET OF THERAPY, WITH A GOAL 30 mg/dL HIGHER THAN THE IDENTIFIED LDL C GOAL. CHOL/HDL RATIO 5.0 H 0.0-4.5 VLDL Cholesterol 44 MG/DL 5-55 Lipid Profile Comment 1 (Report) NIH CONCENSUS REPORT RECOMMENDATIONS: ADULT CHILD LOW RISK: CHOLESTEROL <200 <170 TRIGLYCERIDE <150 --- HDL >=60 --- LDL <100 <110 BORDERLINE: CHOLESTEROL 200-239 170-199 TRIGLYCERIDE 150-199 --- HDL 40-59 --- LDL 100-159 110-129 HIGH RISK: CHOLESTEROL >=240 >=200 TRIGLYCERIDE >=200 --- HDL <40 --- LDL >=160 >=130 Assessment 1. Encounter for preventive health examination (V70.0) (Z00.00) 2. Hyperlipidemia (272.4) (E78.5) 3. Impaired fasting glucose (790.21) (R73.01) 4. Obesity (278.00) (E66.9) 5. Ear fullness (388.8) (H93.8X9) 6. Epididymal cyst (608.89) (N50.3) Plan Epididymal cyst ?? Urology Referral Outpatient 37 yo male with a small epididymal mass that is causing discomfort, last US was a few months ago. please eval & treat, thanks. Status: Need Information - Financial Authorization Requested for: 26Apr2017 Ordered; For: Epididymal cyst; Ordered By: Baljeet Doran Performed: Due: 10May2017 Health Maintenance ?? Diets that are low in carbohydrates and high in protein are very popular for weight loss.; Status:Complete; Done: 26Apr2017 09:28AM Ordered; For:Health Maintenance; Ordered By:Baljeet Doran; Hyperlipidemia ?? Follow-up visit in 3 months Outpatient Follow-up Status: Hold For - Scheduling Requested for: 26Apr2017 Ordered; For: Hyperlipidemia; Ordered By: Baljeet Doran Performed: Due: 10May2017 ?? Lipid Profile; Status:Active; Requested for:27Jul2017; Perform:[facility]; Due:[id number];Ordered; For:Hyperlipidemia; Ordered By:Baljeet Doran; Impaired fasting glucose ?? Basic Metabolic Prof ( BMP ); Status:Active; Requested for:27Jul2017; Perform:[facility]; Due:[id number];Ordered; For:Impaired fasting glucose; OrderedBy:Baljeet Doran; Obesity ?? Avoid food and drinks with a lot of sugar and carbohydrates such as white bread, fruit juice, soda and sweets.; Status:Complete; Done: 26Apr2017 09:28AM Ordered; For:Obesity; Ordered By:Baljeet Doran; ?? Exercise daily and eat a diet low in salt, fats, and sweets.; Status:Complete; Done: 26Apr2017 09:28AM Ordered; For:Obesity; Ordered By:Baljeet Doran; ?? We encourage all of our patients to exercise regularly. 30 minutes of exercise or physical activity five or more days a week is recommended for children and adults.; Status:Complete; Done: 26Apr2017 09:28AM Ordered; For:Obesity; Ordered By:Baljeet Doran; ?? Weigh yourself every day. We can use this information to help us treat your problem.; Status:Complete; Done: 26Apr2017:28AM Ordered; For:Obesity; Ordered By:Baljeet Doran; ?? Your child's body mass index (BMI) is high for his/her age.; Status:Complete; Done: 26Apr2017 09:28AM Ordered; For:Obesity; Ordered By:Baljeet Doran; PMH: Upper back pain ?? Naproxen 500 MG Oral Tablet; TAKE 1 TABLET EVERY 12 HOURS NEEDED Rx By: Baljeet Doran; Dispense: 14 Days ; #:28 Tablet; Refill: 1; For: PMH: Upper back pain; ANTONIETTA= N; Verified Transmission to [facility]; Last Updated By: Yanique Gorman; 04/26/2017 8:54:16 AM Discussion/Summary Impression: healthy adult male. Currently, he eats a poor diet and has an inadequate exercise regimen. Prostate cancer screening: the risks and benefits of prostate cancer screening were discussed and PSA is not indicated. Testicular cancer screening: the risks and benefits of testicular cancer screening were discussed and testicular cancer screening is not indicated. Colorectal cancer screening:the risks and benefits of colorectal cancer screening were discussed and the next colonoscopy is due 48 yo. Advice and education were given regarding nutrition, aerobic exercise, weight bearing exercise, weight loss, sunscreen use and seat belt use. Patient discussion: discussed with the patient. HLP: LDL is controlled without medication at this time, LDL of 126. Hypertriglyceridemia: TriG level is at 221 and will work on carb reduction and weight loss and repeat in 3 months. Obesity: He has a BMI of 32 as he has not been exercising, will try to lose 12 pounds in 3 months. Impaired fasting glucose: Currently controlled with a FBS of 99 and will repeat in 3 months. Ear fullness: Will call if he requires a referral to ENT for the rushing and pressure in the ear. Epididymal cyst: He is requesting referral to see a urologist. f/u in 3 months. Declines a flu shot despite recommendation. Tobacco use screening completed. Signatures Electronically signed by : Baljeet Doran M.D.; Apr 26 2017 9:37AM MACHINE HEEL SPRAYER (Author) documented in this encounter Plan of Treatment Not on file documented as of this encounter Visit Diagnoses Not on filedocumented in this encounter Care Teams Pipe Fitter Helper Relationship Specialty Start Date End Date Baljeet Doran MD [address] [facility] [address] [place] [address] PCP - General 11/24/16 documented as of this encounter
--- OUTSIDE RECORDS SUMMARY | 2024-07-20 15:37 | XMS_ITS | Encounter Summary ---
Author Organization [facility] Address [facility] [place] [address] [place] [address] Care Team Providers Care Business Solutions Architect Name Role Phone Baljeet Doran MD Primary Care Provider Encounter Details Date Type Department Care Team (Late st Contact Info) Description 04/26/2017 Orders Only [facility] [address] [place], [place] [id number] Baljeet Doran MD [address] [facility] [address] [place], [place] [id number] Social History Tobacco Use Types Packs/Day Years Used Date Smoking Tobacco: Never Assessed Sex and Gender Information Value Date Recorded Sex Assigned at Not on file Legal Sex Male 12:41 AM CDT Gender Identity Not on file Sexual Orientation Not on file documented as of this encounter Plan of Treatment Not on file documented as of this encounter Visit Diagnoses Diagnosis Impaired fasting glucose Hyperlipidemia Other and unspecified hyperlipidemia documented in this encounter Care Teams Business Solutions Architect Relationship Specialty Start Date End Date Baljeet Doran MD [address] [place], [place] [address] PCP - General 11/24/16 documented as of this encounter
--- OUTSIDE RECORDS SUMMARY | 2024-07-20 15:37 | XMS_ITS | Encounter Summary ---
Author Organization [facility] Address [facility] [place] [address] [place] [address] Care Team Providers Care Tipple Supervisor Name Role Phone Baljeet Doran MD Primary Care Provider Encounter Details Date Type Department Care Team (Latest Contact Info) Description 01/15/2020 Travel Social History Tobacco Use Types Packs/Day [...] on filedocumented in this encounter Care Teams Tipple Supervisor Relationship Specialty Start Date End Date Baljeet Doran MD [address] [place] [address] PCP - General 11/24/16 documented as of this encounter
--- OUTSIDE RECORDS SUMMARY | 2024-07-20 15:37 | XMS_ITS | Encounter Summary ---
Author Organization [facility] Address [facility]6 [place] [address] [place] [address] Care Team Providers Care Senior Web Analyst Name Role Phone Baljeet Doran MD Primary Care Provider Encounter Details Date Type Department Care Team (Latest Contact Info) Description 11/03/2020 Travel Social History Tobacco Use Types Packs/Day [...] filedocumented in this encounter Care Teams Senior Web Analyst Relationship Specialty Start Date End Date Baljeet Doran MD [address] [facility] [address] [place] [address] PCP - General 11/24/16 documented as of this encounter
--- OUTSIDE RECORDS SUMMARY | 2024-07-20 15:37 | XMS_ITS | Encounter Summary ---
Author Organization [facility] Address [facility] [place] [address] [place] [address] Care Team Providers Care Maintenance Porter Name Role Phone Baljeet Doran MD Primary Care Provider Encounter Details Date Type Department Care Team (Latest Contact Info) Description 08/09/2019 Scan [facility] Scanned, Documents Social History [...] Procedure Name Priority Date/Time Associated Diagnosis Comments US TESTICULAR W DOPPLER Routine 08/09/2019 Testicular cyst documented in this encounter Results * US TESTICULAR W DOPPLER (08/09/2019) Anatomical Region Laterality Modality Pelvis Ultrasound us Baljeet Doran MD ULTRASOUND Edited Result - Final documented in this encounter Visit Diagnoses Diagnosis Testicular cyst Other specified disorder of male genital organs documented in this encounter Care Teams Maintenance Porter Relationship Specialty Start Date End Date Baljeet Doran MD [address] [place] [address] PCP - General 11/24/16 documented as of this encounter
--- OUTSIDE RECORDS SUMMARY | 2024-07-20 15:37 | XMS_ITS | Encounter Summary ---
Author Organization [facility] Address [facility] hospital6 [facility] [place] [address] [place] [address] Care Team Providers Care Medical Transcriptionist Name Role Phone Baljeet Doran MD Primary Care Provider Reason for Visit * Reason Onset Date Comments Question 10/24/2019 Encounter Details Date Type Department Care Team (Late st Contact Info) Description 10/24/2019 Telephone [facility] Multispecialty Care - [facility] [address] [facility] [place] [address] Tate Thomas MD [address] [place], [place] [id number] Question Social History Tobacco Use Types Packs/Day Years Used Date Smoking Tobacco: Never Smokeless Tobacco: Never Sex and Gender Information Value Date Recorded Sex Assigned at Not on file Legal Sex Male 12:41 AM CDT Gender Identity Not on file Sexual Orientation Not on file documented as of this encounter Progress Notes * Hunter Patten MA - 10/24/2019 3:06 PM CDT Looks like patient is scheduled to see tomorrow. * Hunter Patten MA - 10/24/2019 11:57 AM CDT Not able to reach patient by phone, left message to call back. * Hunter Patten MA - 10/24/2019 11:51 AM CDT Spoke to and he would like to see patient to tomorrow morning at 9 am. I will call patientto see if he would like to come in. * Rosa Duron - 10/24/2019 10:11 AM CDT Pt called in stating that they have an appointment for 11/10 but needs to be seen yisel. Pt's knee islocked up and can't walk and is in a lot of pain. Ice and heat are not helping documented in this encounter Plan of Treatment Not on file documented as of this encounter Visit Diagnoses Not on filedocumented in this encounter Care Teams Medical Transcriptionist Relationship Specialty Start Date End Date Baljeet Doran MD [address] [address] PCP - General 11/24/16 documented as of this encounter
--- OUTSIDE RECORDS SUMMARY | 2024-07-20 15:37 | XMS_ITS | Encounter Summary ---
Author Organization [facility] Address [facility]6 [facility] [place] [address] [place] [address] Care Team Providers Care Bottom Cementer Name Role Phone Baljeet Doran MD Primary Care Provider Encounter Details Date Type Department Care Team (Latest Contact Info) Description 12/31/2019 Travel Social History Tobacco Use Types Packs/Day [...] on filedocumented in this encounter Care Teams Bottom Cementer Relationship Specialty Start Date End Date Baljeet Doran MD [address] [place] [address] PCP - General 11/24/16 documented as of this encounter
--- OUTSIDE RECORDS SUMMARY | 2024-07-20 15:37 | XMS_ITS | Encounter Summary ---
Author Organization [facility] Address [facility]6 [facility] [place] [address] [place] [address] Care Team Providers Care Machine Heel Seat Laster Name Role Phone Baljeet Doran MD Primary Care Provider Encounter Details Date Type Department Care Team (Late st Contact Info) Description 11/12/2018 Orders Only [facility] Family Medicine - [place] [address] [place] [id number] Alondra Leavitt MA Social History Tobacco Use Types Packs/Day Years [...] on filedocumented in this encounter Care Teams Machine Heel Seat Laster Relationship Specialty Start Date End Date Baljeet Doran MD [address] [place] [address] PCP - General 11/24/16 documented as of this encounter
--- OUTSIDE RECORDS SUMMARY | 2024-07-20 15:37 | XMS_ITS | Encounter Summary ---
Author Organization [facility] Address [facility] [place] [address] [place] [address] Care Team Providers Care Road Roller Engineer Name Role Phone Baljeet Doran MD Primary Care Provider Reason for Visit * Reason Comments Knee Pain R knee pain * Consultation (Urgent) - Closed Specialty Diagnoses / Procedures Referred By Contac t Referred To Contact ORTHOPAEDICS Diagnoses Chronic pain of right knee Baljeet Doran MD [address] [place] [address] Phone: tel: fax: Delonte Agudelo MD Phone: tel: fax: Referral ID Status Reason Start Date Expiration Date V isits Requested Visits Authorized [id number] Closed Specialty Services 08/06/2019 09/05/2020 100 100 Encounter Details Date Type Department Care Team (Latest Contact Info) Description 11/22/2019 10:40 AM CDT Office Visit [facility] Multispecialty Care - [facility] [address] [place] [id number] Madison Murillo MD [address] [place] [address] Knee Pain (R knee pain ) Social [...] have Coronavirus / COVID-19? No / Unsure 11/22/2019 10:46 AM CDT documented as of this encounter Last Filed Vital Signs Vital Sign Reading Time Taken Comments Blood Pressure 130/84 11/22/2019 11:04 AM CDT Pulse 97 11/22/2019 11:04 AM CDT Temperature - - Respiratory Rate - - Oxygen Saturation - - Inhaled Oxygen Concentration - - Weight 85.7 kg (189 lb) 11/22/2019 11:04 AM CDT Height - - Body Mass Index 27.12 11/18/2019 3:58 PM CDT documented in this encounter Progress Notes * Madison Murillo MD - 11/22/2019 10:40 AM CDT Images from the original note were not included. Office Progress Note Reason for Visit: Knee Pain (R knee pain ) History of Present Illness: Patient returns for follow-up on rt knee. Previously diagnosed with meniscal tear. No significant flipped meniscal tear patient was having pain symptoms over the last several months worse with deep knee bending activities occasional locking sensation. At last visit completed cortisone injection to the knee to help alleviate pain symptoms and provided him a hinged knee stabilization brace. Between that time and this follow-up patient has had interval development of a small furuncle/superficial infection on the posterior calf. Skin swelling and some puslike drainage earlier this week prompting visit to the emergency room was put on doxycycline medication twice daily which she has beentaking regularly over the last 3 days. Patient has had to stop work activities not only due to some of the knee pain symptoms he was having but also because of this superficial infection. Since being on the antibiotics patient has noted decrease size in the area of swelling and redness pain symptoms have subsided somewhat. He still in the calf and lower ankle region of the leg but he is able to tolerate ambulation activities. Again hehas stopped work activities over the last week. Patient was thinking about getting the referral to a surgeon that I discussed at last visit to do medical care. Patient thinks that it is giving him enough dysfunction with work activities that he thinks he is wanting to definitively address this. Patient does have naproxen medication that is using for pain symptoms. Denies any significant fevers, chills or systemic symptoms. Has felt a bit warm but no measured temperature. ROS: Musculoskeletal: See HPI Constitutional: See HPI Skin: Superficial infection left posterior calf Neurological: Negative numbness tingling or paresthesia in the lower extremities Respiratory: Negative. Cardiovascular: Negative Endo/Heme/Allergies: Negative. Medications: Current Outpatient Medications: ??? doxycycline hyclate 100 MG capsule, Take 1 capsule (100 mg total) by mouth 2 (two) times daily for 10 days., Disp: 20 capsule, Rfl: 0 ??? amphetamine-dextroamphetamine 5 MG tablet, Take 1 [...] file Gets together: Not on file Attends moravian service: Not on file Active member of [...] family history on file. VITALS: Filed Vitals: 11/22/19 1104 BP: 130/84 Pulse: 97 Weight: 85.7 kg (189 lb) PE: Physical exam: General: Patient's appearance is normal, well-nourished, well-developed, no apparent distress Neuro psych: Alert and oriented x4, normal voice/speech/tone, normal judgment and mood Skin: No significant rash or erythematous eruption, swelling or evidence of skin infection Neuromuscular: General strength and tone throughout normal gait is normal Musculoskeletal: Rt leg/calf: Mild swelling in the calf and lower ankle 1+ posteriorly there is a central ulcerationtype furuncle with some minimal serous drainage. Surrounding erythema and induration about 5 to 6 cm patient reports this is decreased in size from previous in the week. Fairness to palpation of thisarea. No streaking redness generating from the area. Posterior compartment is soft and nontender. Anterior and lateral compartments of the leg also soft nontender full range of motion at the ankle without significant pain symptoms. Negative Homans. Neurovascular intact distally. Rt knee: No effusion no significant redness or rash on the knee. Range of motion is full 0 to 140 degrees negative varus valgus stress or instability. Normal strength. Procedures Oxr Rt Knee 3v Result Date: 10/25/2019 Right knee Findings: No acute osseous abnormality, fracture, dislocation. enesthophyte superior patellar pole. Mild degenerative changes patellofemoral compartment. No significant medial lateral joint space narrowing or degenerative changes. Moderate effusion. Mri Knee Rt Wo Con Result Date: 11/01/2019 EXAMINATION: MRI KNEE RT WO CON HISTORY: Medial knee pain and popping DATE: 11/01/2019 5:06 PM COMPARISON: X-ray 10/25/2019 TECHNIQUE: Multisequence multiplanar unenhanced imaging FINDINGS: Quadriceps and patellar tendons are intact. Mild edema in the suprapatellar fat pad. Patellofemoral ligaments are intact. Cruciate ligaments are intact. Collateral ligaments are intact. There is a bucket-handle tear of the medial meniscus with displaced meniscal tissue flipped into the central aspect of the medial compartment. Lateral meniscus is intact. Articular cartilage appears grossly unremarkable. No fracture. Miniscule amount bone marrow edema in the medial tibial plateau near the area of meniscal tear. Small joint effusion. No Hu's cyst. No evidence of muscle strain. Popliteus tendon is intact. IMPRESSION: Bucket-handle tear of the medial meniscus. Interpreted By: Rick Huynh MD, 11/01/2019 5:42 PM Diagnoses/Impression: 1. Furuncle of lower leg doxycycline hyclate 100 MG capsule 2. Internal derangement of right knee 3. Bucket-handle tear of medial meniscus of right knee as current injury, subsequent encounter Recommendations and Plan: Furuncle right leg/superficial skin infection: Improving over the last 3 days on and continue with doxycycline 100 mg twice daily for full 2 weeks course. Follow-up in 10 days to check on his resolution of the infection sooner if needed. Once the infection is resolved and there is no residual signsof infection on the lower leg will refer over to Dr. Agudelo for arthroscopic debridement of the meniscal tear in the knee. Daily dressing changes to the area maintained off work status elevate the leg use naproxen as needed for pain symptoms. Continue with ankle pumps and knee range of motion exercises Knee meniscal tear: See above. Recommend being off work for the next 2 weeks while he is recoveringfrom this superficial infection. MADISON MURILLO MD 11/22/2019 documented in this encounter Plan of Treatment Not on file documented as of this encounter Visit Diagnoses Diagnosis Furuncle of lower leg- Primary Carbuncle and furuncle of leg, except foot Internal derangement of right knee Unspecified internal derangement of knee Bucket-handle tear of medial meniscus of right knee as current injury, subsequent encounter documented in this encounter Care Teams Road Roller Engineer Relationship Specialty Start Date End Date Baljeet Doran MD [address] [address] PCP - General 11/24/16 documented as of this encounter
--- OUTSIDE RECORDS SUMMARY | 2024-07-20 15:37 | XMS_ITS | Encounter Summary ---
Author Organization [facility] Address [facility] [facility] [place] [address] [place] [address] Care Team Providers Care Industrial Insulator Name Role Phone Baljeet Doran MD Primary Care Provider Encounter Details Date Type Department Care Team (Latest Contact Info) Description 12/06/2016 Abstract [facility] Social History Tobacco Use Types Packs/Day Years Used Date Smoking Tobacco: Never Assessed Sex and Gender Information Value Date Recorded Sex Assigned at Not on file Legal Sex Male 12:41 AM CDT Gender Identity Not on file Sexual Orientation Not on file documented as of this encounter Progress Notes * Oneida Mendiola Md, MD - 12/06/2016 10:15 AM CDT Message Recorded as Task Date: 11/24/2016 12:18 PM, Created By: Baljeet Doran Task Name: Call Patient with results Assigned To: [facility] - NURSES Regarding Patient: Raffaele Valenzuela, Status: In Progress Comment: Baljeet Doran - 24 Nov 2016 12:18 PM Patient normal X-ray of the back, continue with current medications Amy Phillips - 25 Nov 2016 6:50 AM TASK REASSIGNED: Previously Assigned To Baljeet Doran Dawn - 25 Nov 2016 3:02 PM TASK IN PROGRESS Message: Multiple attempts to contact patient with no response to discuss results. Letter sent. Phoebe Signatures Electronically signed by : Amy Phillips, ; Dec 06 2016 10:15AM GROUP MANAGING DIRECTOR (Author) documented in this encounter Plan of Treatment Not on file documented as of this encounter Visit Diagnoses Not on filedocumented in this encounter Care Teams Industrial Insulator Relationship Specialty Start Date End Date Baljeet Doran MD [address] [address] PCP - General 11/24/16 documented as of this encounter
--- OUTSIDE RECORDS SUMMARY | 2024-07-20 15:37 | XMS_ITS | Encounter Summary ---
Author Organization [facility] Address [facility] [place] [address] [place] [address] Care Team Providers Care Residential Building Inspector Name Role Phone Baljeet Doran MD Primary Care Provider Reason for Visit * Reason Comments New Patient right knee * Consultation (Urgent) - Closed Specialty Diagnoses / Procedures Referred By Contac t Referred To Contact ORTHOPAEDICS Diagnoses Chronic pain of right knee Baljeet Doran MD [address] [place] [address] Phone: tel: fax: Victoriano Parker MD Phone: tel: fax: Referral ID Status Reason Start Date Expiration Date V isits Requested Visits Authorized [id number] Closed Specialty Services 08/06/2019 09/05/2020 100 100 Encounter Details Date Type Department Care Team (Latest Contact Info) Description 12/25/2019 1:20 PM CDT Office Visit [facility] Multispecialty Care - [facility] [address] [place] [phone] Victoriano Parker MD [address] [place] [address] New Patient (right knee) Social History Tobacco Use Types [...] have Coronavirus / COVID-19? No / Unsure 12/25/2019 1:18 PM CDT documented as of this encounter Last Filed Vital Signs Vital Sign Reading Time Taken Comments Blood Pressure 127/66 12/25/2019 1:43 PM CDT Pulse 89 12/25/2019 1:42 PM CDT Temperature 36.7 ??C (98.1 ??F) 12/25/2019 1:42 PM CD T Respiratory Rate - - Oxygen Saturation 98% 12/25/2019 1:42 PM CDT Inhaled Oxygen Concentration - - Weight 83.1 kg (183 lb 1.6 oz) 12/25/2019 1:42 P M CDT Height 177.8 cm (5' 10 ) 12/25/2019 1:42 PM CDT Body Mass Index 26.27 12/25/2019 1:42 PM CDT documented in this encounter Progress Notes * Victoriano Parker MD - 12/25/2019 1:20 PM CDT [...] file Gets together: Not on file Attends christianity service: Not on file Active member of [...] Family History: No family history on file. VICTORIANO PARKER MD 12/25/2019 documented in this encounter Plan of Treatment Not on file documented as of this encounter Visit Diagnoses Diagnosis Bucket-handle tear of medial meniscus of right knee as current injury, subsequent encounter- Primary documented in this encounter Care Teams Residential Building Inspector Relationship Specialty Start Date End Date Baljeet Doran MD [address] [address] PCP - General 11/24/16 documented as of this encounter
--- OUTSIDE RECORDS SUMMARY | 2024-07-20 15:37 | XMS_ITS | Encounter Summary ---
Author Organization [facility] Address [facility] [place] [address] [place] [address] Care Team Providers Care Ammonia Box Tender Name Role Phone Baljeet Doran MD Primary Care Provider Encounter Details Date Type Department Care Team (Latest Contact Info) Description 01/28/2020 Travel Social History Tobacco Use Types Packs/Day [...] on filedocumented in this encounter Care Teams Ammonia Box Tender Relationship Specialty Start Date End Date Baljeet Doran MD [address] [place] [address] PCP - General 11/24/16 documented as of this encounter
--- OUTSIDE RECORDS SUMMARY | 2024-07-20 15:37 | XMS_ITS | Encounter Summary ---
Author Organization [facility] Address [facility] [facility] [address] [place] [address] Care Team Providers Care Pulmonology Physician Name Role Phone Baljeet Doarn MD Primary Care Provider Reason for Visit * Reason Onset Date Comments Returned Call 11/04/2019 Encounter Details Date Type Department Care Team (Late st Contact Info) Description 11/04/2019 Telephone [facility] Multispecialty Care - [facility] [address] [facility] [place] [address] Tate Thomas MD [address] [place] [address] Returned Call Social History Tobacco Use Types Packs/Day [...] Progress Notes * Eddy Beltran MA - 11/05/2019 11:39 AM CDT GRACIELA LVM for the patient to call back regarding his MRI * Eddy Beltran MA - 11/05/2019 9:[address] Thomas is calling this patient to speak on his MRI. * Kitty Marti - 11/04/2019 7:57 AM CDT Pt missed a call fro Diamond Thomas re: MRI. He is working, would love to speak to Dr Thomas around 12-12:30 pm if you could give him a call then documented in this encounter Plan of Treatment Not on file documented as of this encounter Visit Diagnoses Not on filedocumented in this encounter Care Teams Pulmonology Physician Relationship Specialty Start Date End Date Baljeet Doran MD [address] [place] [place] [address] PCP - General 11/24/16 documented as of this encounter
--- OUTSIDE RECORDS SUMMARY | 2024-07-20 15:37 | XMS_ITS | Encounter Summary ---
Author Organization [facility] Address [facility] [place] [address] [place] [address] Care Team Providers Care Corner Former Name Role Phone Baljeet Doran MD Primary Care Provider Encounter Details Date Type Department Care Team (Late st Contact Info) Description 04/24/2017 Abstract [facility] [place] [address] Baljeet Doran MD [address] [place] [address] Social History Tobacco Use Types Packs/Day Years [...] Procedure Name Priority Date/Time Associated Diagnosis Comments BASIC METABOLIC PANEL Routine 04/24/2017 11:49 AM CDT LIPID PANEL Routine 04/24/2017 11:49 AM CDT documented in this encounter Results * (ABNORMAL) LIPID PANEL (04/24/2017 11:49 AM CDT) CHOLESTEROL 213(H) <200 MG/DL 04/24/2017 7:15 PM CDT [facility] Comment: NOTE: Acetaminophen, N Acetyl p benzoquinone imine (NAPQI), N acetylcysteine (NAC), Metamizole, 4 Aminoantipyrine (4 AAP) and 4 Methylamino antipyrine (4 MAP) at high concentrations can cause falsely low results on Lactate, Uric Acid, Cholesterol, Triglyceride, HDL, and Direct LDL. TRIGLYCERIDES 221(H) <150 MG/DL 04/24/2017 7:15 PM T [facility] HDL 43(L) >59 MG/DL 04/24/2017 7:15 PM [facility] LDL (CALCULATED) 126(H) <100 MG/DL 04/24/2017 7:15 PM [facility] NON HDL CHOLESTEROL 170(H) <130 MG/DL 04/24/2017 7:15 PM [facility] Comment: NOTE: WHEN THE TRIGLYCERIDES ARE >200 mg/dL, NON HDL C IS A SECONDARY TARGET OF THERAPY, WITH A GOAL 30 mg/dL HIGHER THAN THE IDENTIFIED LDL C GOAL. CHOL/HDL RATIO 5.0(H) 0.0 - 4.5 04/24/2017 7:15 PM [facility] VLDL CALCULATION 44 5 - 55 MG/DL 04/24/2017 7:15 PM [facility] LIPID INTERPRETATION 04/24/2017 7:15 PM [facility] Comment: NIH CONCENSUS REPORT RECOMMENDATIONS: ?ADULT ?CHILD ??LOW RISK: ?CHOLESTEROL ? <200 ? <170 ?TRIGLYCERIDE ?<150 ?--- ?HDL ? >=60 ?--- ?LDL ? <100 ? <110 ??BORDERLINE: ?CHOLESTEROL ? 200-239 ?? 170-199 ?TRIGLYCERIDE ?150-199 ? --- ?HDL ?40-59 ?--- ?LDL ? 100-159 ?? 110-129 ??HIGH RISK: ?CHOLESTEROL ? >=240 ?>=200 ?TRIGLYCERIDE ?>=200 ? --- ?HDL ?<40 ?--- ?LDL ? >=160 ?>=130 04/24/2017 11:4 9 AM CDT 04/24/2017 12:24 PM CDT us Generic Conversion Md [facility] Final R esult [facility] [address] [place] [id number], * BASIC METABOLIC PANEL (04/24/2017 11:49 AM CDT) GLUCOSE 99 70 - 99 mg/dL 04/24/2017 7:15 PM CDT [facility] BUN 14 8 - 23 mg/dL 04/24/2017 7:15 PM CDT [facility] CREATININE S/P/B 1.05 0.70 - 1.20 mg/dL 04/24/2017 7:15 PM CDT [facility] SODIUM S/P/B 139 136 - 145 mmol/L 04/24/2017 7:15 PM CDT [facility] POTASSIUM S/P/B 5.0 3.5 - 5.1 mmol/L 04/24/2017 7:15 PM CDT [facility] CHLORIDE S/P/B 102 98 - 107 mmol/L 04/24/2017 7:15 PM CDT [facility] CO2 28 22 - 29 mmol/L 04/24/2017 7:15 PM CDT [facility] CALCIUM S/P/B 9.4 8.6 - 10.2 mg/dL 04/24/2017 7:15 PM CDT [facility] ANION GAP 14 8 - 20 04/24/2017 7:15 PM CDT [facility] EGFR NON-AFR. AMER. >60 >60 mL/min/1.7 3m'2 04/24/2017 7:15 PM CDT [facility] EGFR AFR. AMER. >60 >60 mL/min/1.7 3m'2 04/24/2017 7:15 PM CDT [facility] Comment: NOTE: eGFR is not calculated for patients <18 years of age. This is an estimated GFR (CKD EPI) and should not be used for calculating drug doses. 04/24/2017 11:4 9 AM CDT 04/24/2017 12:24 PM CDT us Generic Conversion Md [facility] Final R esult [facility] [address], [place] [phone] documented in this encounter Visit Diagnoses Diagnosis Impaired fasting glucose documented in this encounter Care Teams Corner Former Relationship Specialty Start Date End Date Baljeet Doran MD [address] [id number] PCP - General 11/24/16 documented as of this encounter
--- OUTSIDE RECORDS SUMMARY | 2024-07-20 15:37 | XMS_ITS | Encounter Summary ---
Author Organization [facility] Address [facility] [place] [address] [place] [address] Care Team Providers Care Oil Tank Car Cleaner Name Role Phone Baljeet Dorna MD Primary Care Provider Reason for Visit * Reason Onset Date Comments Back Pain 11/03/2020 left flank pain Encounter Details Date Type Department Care Team (Late st Contact Info) Description 11/03/2020 Nurse Triage [facility] Family Medicine - [place] [address] [facility] [place] [phone] Baljeet Doran MD [address] [place], [place] [phone] Back Pain (left flank pain) Social History Tobacco Use Types Packs/Day [...] have Coronavirus / COVID-19? No / Unsure 10/31/2020 8:54 AM CDT documented as of this encounter Progress Notes * Iris Lombardi RN - 11/03/2020 8:43 AM CDT Patient called stating he was seen at [facility] ER on 10/31/20 for a fall. He was diagnosed with right clavicle fracture. He states he has bruising from the fall. He states he has pain in his left flank area. Denies blood in urine. Denies burning, frequency, or urgency with urination. Denies fever, body aches, chills. Patient is taking [place] right now due to the clavicle fracture. Patient iswanting to be seen by Dr. Doran for f/u post fall. Appointment scheduled for today, 11/03/20. COVID Screening Does the patient report a cough? No Does the patient have a fever? No Does the patient report a sore throat? No Does the patient have shortness of breath? No Has the patient been exposed to a confirmed positive COVID-19 case? No Are you a healthcare worker or clinic nurse? No Reason for Disposition ??? MODERATE pain (e.g., interferes with normal activities or awakens from sleep) Protocols used: FLANK [id number] documented in this encounter Plan of Treatment Not on file documented as of this encounter Visit Diagnoses Not on filedocumented in this encounter Care Teams Oil Tank Car Cleaner Relationship Specialty Start Date End Date Baljeet Doran MD [address] [address] PCP - General 11/24/16 documented as of this encounter
--- OUTSIDE RECORDS SUMMARY | 2024-07-20 15:37 | XMS_ITS | Encounter Summary ---
Author Organization [facility] Address [facility] [place] [address] [place] [address] Care Team Providers Care Retail Pricing Coordinator Name Role Phone Baljeet Doran MD Primary Care Provider Reason for Visit * Reason Comments Fall Encounter Details Date Type Department Care Team (Late st Contact Info) Description 10/31/2020 8:59 AM CDT - 10/31/2020 10:35 AM CDT Emergency [facility] [place] [address] Stella Gillespie NP [address] [address] Fall Discharge Disposition: Home or Self Care (Routine [...] Sign Reading Time Taken Comments Blood Pressure 148/101 10/31/2020 8:55 AM CDT Pulse 89 10/31/2020 8:55 AM CDT Temperature 36.3 ??C (97.4 ??F) 10/31/2020 8:55 AM CD T Respiratory Rate 20 10/31/2020 8:55 AM CDT Oxygen Saturation 100% 10/31/2020 8:55 AM CDT Inhaled Oxygen Concentration - - Weight 83.5 kg (184 lb) 10/31/2020 8:55 AM CDT Height 177.8 cm (5' 10 ) 10/31/2020 8:55 AM CDT Body Mass Index 26.4 10/31/2020 8:55 AM CDT documented in this encounter Discharge Instructions * Discharge Instructions* Stella Gillespie NP - 10/31/2020 10:26 AM CDT Apply ice pack to affected area for 20 minutes several times per day Sling for comfort IF you develop in crease in pain or sudden shortness of breath, return immediately. * Attachments The following attachments cannot be sent through Care Everywhere. * Clavicle Fracture Discharge Instructions (Montenegrin) documented in this encounter Medications at Time of Discharge HYDROcodone-aceta minophen (NORCO) 5-325 MG tabletIndications :Acute Pain < 7 Day Supply Take 1 tablet by mouth every 6 (six) hours as needed. Indications: Acute Pain < 7 Day Supply 16 tablet 10/31/2020 naproxen 500 MG tabletIndications :Sore throat Take 1 tablet (500 mg total) by mouth every 12 (twelve) hours as needed. Take one tab twice daily with food for 7 days. Then take only as needed. 60 tablet 1 12/31/2019 acamprosate EC 333 MG tabletIndications :Alcohol dependence with alcohol-induced anxiety disorder (CMS/HCC [facility]/HCC) Take 2 tablets (666 mg total) by mouth 3 (three) times daily. 180 tablet 1 01/28/2020 11/03/2020 ALPRAZolam 2 MG tablet 01/17/2020 11/03/2020 amphetamine-dextr oamphetamine 7.5 MG tablet Take 1 tablet by mouth 2 (two) times daily. 01/06/2020 11/03/2020 ibuprofen 600 MG tablet Take 1 tablet (600 mg total) by mouth every 6 (six) hours as needed. 30 tablet 10/31/2020 11/10/2020 sertraline 50 MG tabletIndications :Alcohol dependence with alcohol-induced anxiety disorder (CMS/HCC [facility]/HCC) Take 1 tablet (50 mg total) by mouth daily. 30 tablet 3 01/28/2020 11/03/2020 documented as of this encounter ED Notes * Gene Bobo RN - 10/31/2020 10:35 AM CDT Discharge instructions, new prescriptions, and follow up care reviewed with patient. Patient verbalized understanding and was ambulatory to ED exit with steady gait in no apparent distress. * Stella Gillespie NP - 10/31/2020 9:23 AM CDT Emergency Department Note Chief Complaint Chief Complaint Patient presents with ??? Fall History of Present Illness 40-year-old male with past medical history of ADD, anxiety, alcoholism and compartment syndrome with a complaint of right shoulder pain after reporting that he fell as he was running down a flight of steps. States he ran down the steps, lost hisfooting at the level ground and felt onto his right shoulder. This occurred about 3:00 yesterday afternoon. He has limited range of motion secondary to pain. He has taken nothing for symptoms. He denies other injury. Is right-handed dominant. NOTE: This patient was cared for in the middle of an unusual surge in emergency department census directly related to the SARS-2/COVID-19 pandemic. As a result, some of the time indices noted below may be inaccurate. Medical History ALLERGIES: No Known Allergies MEDICATIONS: Prior to Admission medications Medication Sig Start Date End Date Taking? Authorizing Provider HYDROcodone-acetaminophen (NORCO) 5-325 MG tablet Take 1 tablet by mouth every 6 (six) hours as needed. Indications: Acute Pain < 7 Day Supply 10/31/20 Yes Stella Gillespie NP ibuprofen 600 MG tablet Take 1 tablet (600 mg total) by mouth every 6 (six) hours as needed. 10/31/20 11/10/20 Yes Stella Gillespie NP acamprosate EC 333 MG tablet Take 2 tablets (666 mg total) by mouth 3 (three) times daily. 01/28/20 Baljeet Doran MD ALPRAZolam 2 MG tablet 01/17/20 [facility] amphetamine-dextroamphetamine 7.5 MG tablet Take 1 tablet by mouth 2 (two) times daily. 01/06/20 [facility] naproxen 500 MG tablet Take 1 tablet (500 mg total) by mouth every 12 (twelve) hours as needed. Take one tab twice daily with food for 7 days. Then take only as needed. 12/31/19 Delonte Agudelo MD sertraline 50 MG tablet Take 1 tablet (50 mg total) by mouth daily. 01/28/20 Baljeet Doran MD PAST MEDICAL HISTORY: Past Medical History: Diagnosis Date ??? ADD (attention deficit disorder) ??? Alcoholism (CMS/HCC) ??? Anxiety ??? Compartment syndrome (CMS/HCC) PAST SURGICAL HISTORY: Past Surgical History: Procedure Laterality Date ??? AMPUTATION FINGER Left fingertip amp, reattached ??? CARPAL TUNNEL RELEASE Right right and left sides ??? DENTAL PROCEDURE wisdom teeth ??? FASCIOTOMY,ILIOTIBIAL,OPEN Left ??? KNEE SURGERY FAMILY HISTORY: Family History [...] for chills and fever. HENT: Negative for sore throat. Eyes: Negative for visual disturbance. Respiratory: Negative for cough and shortness of breath. Cardiovascular: Negative for chest pain. Gastrointestinal: Negative for abdominal pain, constipation, diarrhea and nausea. Genitourinary: Negative for difficulty urinating. Musculoskeletal: Shoulder pain on the right Skin: Negative for rash. Neurological: Negative for light-headedness and headaches. Psychiatric/Behavioral: Negative for decreased concentration. All other systems reviewed and are negative. Physical Exam Filed Vitals: 10/31/20 0855 BP: (!) 148/101 Pulse: 89 Resp: 20 Temp: 97.4 ??F (36.3 ??C) TempSrc: Temporal SpO2: 100% Weight: 83.5 kg (184 lb) Height: 5' 10 (1.778 m) Physical Exam Constitutional: He is oriented to person, place, and time. He appears well- developed and well-nourished. No distress. HENT: Head: Normocephalic. Eyes: Pupils are equal, round, and reactive to light. Neck: Neck supple. Cardiovascular: Normal rate, regular rhythm, normal heart sounds and intact distal pulses. No murmur heard. Pulmonary/Chest: Effort normal and breath sounds normal. Abdominal: Soft. Bowel sounds are normal. There is no abdominal tenderness. Musculoskeletal: General: Tenderness present. No edema. Comments: Moderate swelling to superior surface of right shoulder and trapezius with bruising. Has limited abduction secondary to pain. Range of motion active is limited secondary to pain. His right radial pulse is palpable. There is no tenting of the skin Neurological: He is alert and oriented to person, place, and time. Skin: Skin is warm and dry. No pallor. Psychiatric: He has a normal mood and affect. His behavior is normal. Judgment and thought content normal. Vitals reviewed. Diagnostic Studies / Procedures ELECTROCARDIOGRAMS: No results found for this visit on 10/31/20. LABORATORY STUDIES: No results found for this visit on 10/31/20. IMAGING STUDIES XR SHOULDER RT MIN 2V Final Result by User, [id number] (10/31 1008) 3 VIEWS OF THE RIGHT SHOULDER Clinical History: Injury, pain Comparison: May 26, 2016 3 views of the right shoulder demonstrate a severely comminuted fracture of the distal clavicle with mild impaction, cephalic angulation, and posterior displacement. The glenohumeral joint is intact. The AC joint also appears grossly intact. The surrounding soft tissues are within normal limits IMPRESSION: Comminuted distal clavicular fracture Referred By: STELLA GILLESPIE Interpreted By: Ru Chauhan MD, 10/31/2020 10:03 AM XR CLAVICLE RT Final Result by User, [id number] (10/31 1004) 2 VIEWS OF THE RIGHT CLAVICLE Clinical History: Injury, pain Comparison: None 2 views of the right clavicle demonstrate a comminuted fracture of the clavicle with posterior and cephalic displacement. There are at least 4 fragments. The AC joint appears grossly intact. The surrounding soft tissues are within normal IMPRESSION: Comminuted distal clavicle fracture Referred By: STELLA GILLESPIE Interpreted By: Ru Chahuan MD, 10/31/2020 10:02 AM ED Course / Medical Decision Making Results: I reviewed old medical records, obtained from Care Everywhere, as well as internal past medical records, wwhere needed. I interpreted the patient's pulse oximeter at rest, which is 100% on room air, which is normal and determined that this patient is not hypoxic The elements of the HPI, review of systems, past medical history, past surgical history, past family history, social history, medication list, allergies, and examination documented above were personally obtained by me via direct interaction of the patient when possible, with the exception of circumstances or patient factors limiting my ability to do so, as above. In instances where nursing or other providers documented this information prior to my encounter, I personally confirmed the accuracy of this information to the best of my ability given the circumstances. Laboratory Data Reviewed: Noted labs, and abnormals noted on work sheet Imaging Studies Reviewed: Read interpretation report from radiologist. Reviewed images of xrays, independently. Did not speakwith radiologist re: xrays ED Course: Patient was provided with a prescription : see discharge instructions Outpatient referral to PCP /ortho ordered. Patient provided with phone number to call for an appointment. Patient instructed to call on the next business day during business hours. Patient informed that he should be evaluated by this specialist within 1 week Outpatient referral to primary care physician ordered. Patient provided with phone number to call for an appointment. Patient instructed to call on the next business day during business hours. Patient informed that he should be evaluated within 1 week Patient provided with printed and verbal discharge care instructions and was instructed to return to the emergency department immediately with worsening symptoms or new worrisome symptoms. I did spend time answering questions. Discharge instructions using teach back, understanding assessed and validated. Patient was instructed to follow-up with primary care physician within 1 week for further evaluation and treatment. Patient condition at time of discharge stable Diagnoses & treatment discussed with patient Patient expressed understanding and agreed. In my judgement, the evaluation and treatment of this patient, while thorough and complete to the best of my abilities, is potentially limited by the reduced resources available due to the COVID-19 pandemic. ED Diagnosis: Clinical Impression Closed displaced fracture of right clavicle, unspecified part of clavicle, initial encounter (Primary) Disposition: Discharge Medications HYDROcodone-acetaminophen (NORCO) 5-325 MG tablet 1 tablet (1 tablet Oral Given 10/31/20925) Clinical Impression Closed displaced fracture of right clavicle, unspecified part of clavicle, initial encounter (Primary) Discharge Medication List as of 10/31/2020 10:27 AM START taking these medications Details HYDROcodone-acetaminophen (NORCO) 5-325 MG tablet Take 1 tablet by mouth every 6 (six) hours as needed. Indications: Acute Pain < 7 Day Supply, Starting 10/31/2020, Eprescribe Class: Eprescribe Pharmacy: [facility]/pharmacy #[address] [place] [address] (Ph #: [phone]) ibuprofen 600 MG tablet Take 1 tablet (600 mg total) by mouth every 6 (six) hours as needed., Starting 10/31/2020, Until Mon11/10/2020, Eprescribe Class: Eprescribe Pharmacy: [facility]/pharmacy #[address] [place] [address] (Ph #: [phone]) Medications HYDROcodone-acetaminophen (NORCO) 5-325 MG tablet 1 tablet (1 tablet Oral Given 10/31/20925) Discharge Medication List as of 10/31/2020 10:27 AM START taking these medications Details HYDROcodone-acetaminophen (NORCO) 5-325 MG tablet Take 1 tablet by mouth every 6 (six) hours as needed. Indications: Acute Pain < 7 Day Supply, Starting 10/31/2020, Eprescribe Class: Eprescribe Pharmacy: [facility]/pharmacy #[address] [place] [address] (Ph #: [phone]) ibuprofen 600 MG tablet Take 1 tablet (600 mg total) by mouth every 6 (six) hours as needed., Starting 10/31/2020, Until Mon11/10/2020, Eprescribe Class: Eprescribe Pharmacy: [facility]/pharmacy #[id number] - [place], [place] - [address] ( #: [phone]) Disposition: Discharge Follow-Up: Baljeet Doran MD [address] [place] [address] As needed Allan Berg MD [address] [facility] [address] [place] [address] Schedule an appointment as soon as possible for a visit STELLA GILLESPIE NP 10/31/2020 Note: This H+P / note was created with the aid of dictation software, thus there may be some word substitutions or errors. Stella Gillespie NP 10/31/201999 Cosigned by Tristin Sweeney MD at 11/01/2020 6:58 AM CDT * Nory Ravi RN - 10/31/2020 8:57 AM CDT Pt reports yesterday while at [employer] fell down a couple of stairs landing on his right shoulder and has since then had pain with decreased ROM. Pt has jacket on, unable to visualize right shoulder. Cap refill less than 3 seconds, NVI Pt denies hitting head, LOC, neck or back pain. documented in this encounter Plan of Treatment Not on file documented as of this encounter Procedures Procedure Name Priority Date/Time Associated Diagnosis Comments XR SHOULDER RT MIN 2V STAT 10/31/2020 10:00 AM CDT XR CLAVICLE RT STAT 10/31/2020 10:00 AM CDT documented in this encounter Results * XR CLAVICLE RT (10/31/2020 10:00 AM CDT) Anatomical Region Laterality Modality Shoulder Radiographic Ree ging 10/31/2020 10:0 2 AM CDT Impressions 10/31/2020 10:03 AM CDT IMPRESSION: Comminuted distal clavicle fracture Referred By: STELLA GILLESPIE Interpreted By: Ru Chauhan MD, 10/31/2020 10:02 AM Narrative 10/31/2020 10:03 AM CDT 2 VIEWS OF THE RIGHT CLAVICLE Clinical History: Injury, pain Comparison: None 2 views of the right clavicle demonstrate a comminuted fracture of the clavicle with posterior and cephalic displacement. There are at least 4 fragments. The AC joint appears grossly intact. The surrounding soft tissues are within normal Procedure Note Ru Chauhan MD - 10/31/2020 2 VIEWS OF THE RIGHT CLAVICLE Clinical History: Injury, pain Comparison: None 2 views of the right clavicle demonstrate a comminuted fracture of the clavicle with posterior and cephalic displacement. There are at least 4 fragments. The AC joint appears grossly intact. The surrounding soft tissues are within normal IMPRESSION: Comminuted distal clavicle fracture Referred By: STELLA GILLESPIE Interpreted By: Ru Chauhan MD, 10/31/2020 10:02 AM us Stella Gillespie DIRECTOR [facility] Final Result * XR SHOULDER RT MIN 2V (10/31/2020 10:00 AM CDT) Anatomical Region Laterality Modality Shoulder Radiographic Ree ging 10/31/2020 10:0 3 AM CDT Impressions 10/31/2020 10:04 AM CDT IMPRESSION: Comminuted distal clavicular fracture Referred By: STELLA GILLESPIE Interpreted By: Ru Chauhan MD, 10/31/2020 10:03 AM Narrative 10/31/2020 10:04 AM CDT 3 VIEWS OF THE RIGHT SHOULDER Clinical History: Injury, pain Comparison: May 26, 2016 3 views of the right shoulder demonstrate a severely comminuted fracture of the distal clavicle with mild impaction, cephalic angulation, and posterior displacement. The glenohumeral joint is intact. The AC joint also appears grossly intact. The surrounding soft tissues are within normal limits Procedure Note Ru Chauhan MD - 10/31/2020 3 VIEWS OF THE RIGHT SHOULDER Clinical History: Injury, pain Comparison: May 26, 2016 3 views of the right shoulder demonstrate a severely comminuted fractureof the distal clavicle with mild impaction, cephalic angulation, andposterior displacement. The glenohumeral joint is intact. The AC joint alsoappears grossly intact. The surrounding soft tissues are within normal limits IMPRESSION: Comminuted distal clavicular fracture Referred By: STELLA GILLESPIE Interpreted By: Ru Chauhan MD, 10/31/2020 10:03 AM Stella Gillespie DIRECTOR [employer] [facility] Final Result documented in this encounter Visit Diagnoses Diagnosis Closed displaced fracture of right clavicle, unspecified part of clavicle, initial encounter- Primary documented in this encounter Administered Medications Inactive Administered Medications - up to 3 most recent administrations Medication Order MAR Action Action Date Dose Rate Site HYDROcodone-acetaminophen (NORCO) 5-325 MG tablet 1 tablet 1 tablet, Oral, Once, 1 dose, On 10/31/20 at 0930, Maximum dose of acetaminophen is 4000 mg from all sources in 24 hours. Given 10/31/2020 9:26 AM CDT 1 tablet documented in this encounter Active and Recently Administered Medications Times are shown in CDT. Scheduled Medication Order 10/29/2020 10/30/2020 10/31/2020 HYDROcodone-acetaminophen (NORCO) 5-325 MG tablet 1 tablet (COMPLETED) 1 tablet, Oral, Once, 1 dose, On 10/31/20 at 0930, Maximum dose of acetaminophen is 4000 mg from all sources in 24 hours. 0926 (Given - Provid er: Gene Bobo RN) documented in this encounter Care Teams Retail Pricing Coordinator Relationship Specialty Start Date End Date Baljeet Doran MD [address] [address] PCP - General 11/24/16 documented as of this encounter
--- OUTSIDE RECORDS SUMMARY | 2024-07-20 15:37 | XMS_ITS | Encounter Summary ---
Author Organization [facility] Address [facility] [place] [address] [place] [address] Care Team Providers Care Varnish Blender Name Role Phone Baljeet Doran MD Primary Care Provider Reason for Visit * Reason Onset Date Comments Lab Order 10/31/2018 Encounter Details Date Type Department Care Team (Late st Contact Info) Description 10/31/2018 Telephone [facility] Family Medicine - [place] [address], [address] [place] [id number] Baljeet Doran MD [address] [place], [place] [id number] Lab Order Social History Tobacco Use Types Packs/Day Years Used Date Smoking Tobacco: Never Assessed Sex and Gender Information Value Date Recorded Sex Assigned at Not on file Legal Sex Male 12:41 AM CDT Gender Identity Not on file Sexual Orientation Not on file documented as of this encounter Progress Notes * Nargis Feng MA - 11/02/2018 12:56 PM CDT Pt notified that labwork is ready to be picked up * Nargis Feng MA - 11/01/2018 4:21 PM CDT Left generic message. If pt calls back his lab is ready to be picked up or he can go to [facility] * Baljeet Doran MD - 11/01/2018 4:02 PM CDT Lab printed * Rafaela Garcia - 10/31/2018 9:21 AM CDT Patient was donating plasma last Monday and last Monday at [facility] plasma in [place]. He was told by them that he was Hepatitis B positive. He would like for the doctor to write up a lab order for this to get a correct result. documented in this encounter Plan of Treatment Not on file documented as of this encounter Visit Diagnoses Diagnosis Hepatitis B antibody positive- Primary Other and unspecified nonspecific immunological findings documented in this encounter Care Teams Varnish Blender Relationship Specialty Start Date End Date Baljeet Doran MD [address] [address] PCP - General 11/24/16 documented as of this encounter
--- OUTSIDE RECORDS SUMMARY | 2024-07-20 15:37 | XMS_ITS | Encounter Summary ---
Author Organization [place] Address [facility] [place] [address] [place] [address] Care Team Providers Care Cutter [employer] Name Role Phone Baljeet Doran MD Primary Care Provider Reason for Visit * Reason Onset Date Comments Error 11/12/2018 Encounter Details Date Type Department Care Team (Late st Contact Info) Description 11/12/2018 Telephone [facility] Family Medicine - [place] [address] [place] [phone] Baljeet Doran MD [address] [facility] [address] [place], [place] [id number] Error Social History Tobacco Use Types Packs/Day Years [...] on filedocumented in this encounter Care Teams C[employer] Relationship Specialty Start Date End Date Baljeet Doran MD [address] [place], [place] [address] PCP - General 11/24/16 documented as of this encounter
--- OUTSIDE RECORDS SUMMARY | 2024-07-20 15:37 | XMS_ITS | Encounter Summary ---
Author Organization [facility] - [facility] Address [facility] [place] [address] [place] [address] Care Team Providers Care Drawing Supervisor Name Role Phone Baljeet Doran MD Primary Care Provider Reason for Visit * Reason Onset Date Comments Wound 11/18/2019 Encounter Details Date Type Department Care Team (Late st Contact Info) Description 11/18/2019 Telephone [facility] Multispecialty Care - [facility] [address] [facility], [address] [place] [address] Tate Thomas MD [address] [place] [address] Wound Social History Tobacco Use Types Packs/Day Years [...] Progress Notes * Eddy Beltran MA - 11/19/2019 2:[address] Thomas did speak to the patient and patient is going back to the ER due to pain symptoms. Patientwas having increased pain and redness with slight fever. Pt is going now to ER due to staph * Patricia Can - 11/19/2019 2:45 PM CDT Pt called to see again on if we are able to get him in sooner. I informed him that we unfortunatelycannot get him in before Monday. He was very upset that we are not doing anything to get him in sooner especially since he has a staph infection and how we aren't taking him seriously and how swollenand severe his entire leg has gotten and how he cannot walk unless someone puts him over their shoulder and how he needs to go somewhere else for another opinion. I informed him if there is anything we can do to get him in sooner than Monday, we will let him know. * Eddy Beltran MA - 11/19/2019 2:22 PM CDT LVM for the patient letting him know I do not have anything sooner. Patient has an apt on Monday which he can keep. OTC medication and icing until he is seen * Eddy Beltran MA - 11/19/2019 1:03 PM CDT He can keep his apt we do not have anything sooner * Kitty Marti - 11/19/2019 9:49 AM CDT Pt went to ER yesterday, given doxycycline 100 mg bid x 10 days ([facility]), told him to f/u with us. He is calling today because pain is getting worse, he has a torn meniscus and is not working at this time. Wants surgery. Has appt Monday but is asking if we can see him sooner to get the ball rolling. Asking for a call back please * Eddy Beltran MA - 11/18/2019 9:21 AM CDT Called patient and explained he would need to go to the ER He stated he had a lump the size of a mini basketball behind knee. Patient also noted this was hot and red. Patient noted that it did have some pus as well. Answered all questions. * Edyd Beltran MA - 11/18/2019 8:48 AM CDT He will need ER for this. Stop using brace and either the ER or PCP. I will call the patient to discuss * Jonelle Guzman - 11/18/2019 8:27 AM CDT Knee brace rubbed on his leg and he thinks he now has a staph infection on the back of his leg/knee, it's the size of a softball ad he squeezed it and some pus and blood came out but area is hard andhot to the touch, he is in a lot of pain. Please call him back. documented in this encounter Plan of Treatment Not on file documented as of this encounter Visit Diagnoses Not on filedocumented in this encounter Care Teams Drawing Supervisor Relationship Specialty Start Date End Date Baljeet Doran MD [address] [facility] [address] [place] [address] PCP - General 11/24/16 documented as of this encounter
--- OUTSIDE RECORDS SUMMARY | 2024-07-20 15:37 | XMS_ITS | Encounter Summary ---
Author Organization [facility] Address [facility] [place] [address] [place] [address] Care Team Providers Care Table Worker Name Role Phone Baljeet Doran MD Primary Care Provider Encounter Details Date Type Department Care Team (Latest Contact Info) Description 11/22/2019 Travel Social History Tobacco Use Types Packs/Day [...] on filedocumented in this encounter Care Teams Table Worker Relationship Specialty Start Date End Date Baljeet Doran MD [address] [place] [address] PCP - General 11/24/16 documented as of this encounter
--- OUTSIDE RECORDS SUMMARY | 2024-07-20 15:37 | XMS_ITS | Encounter Summary ---
Author Organization [facility] Address [facility] [place] [address] [place] [address] Care Team Providers Care Machine Fitter Name Role Phone Baljeet Doran MD Primary Care Provider Encounter Details Date Type Department Care Team (Latest Contact Info) Description 11/01/2019 Travel Social History Tobacco Use Types Packs/Day [...] filedocumented in this encounter Care Teams Machine Fitter Relationship Specialty Start Date End Date Baljeet Doran MD [address] [facility] [address] [place] [address] PCP - General 11/24/16 documented as of this encounter
--- OUTSIDE RECORDS SUMMARY | 2024-07-20 15:37 | XMS_ITS | Encounter Summary ---
Author Organization [facility] Address [facility] [place] [address] [place] [address] Care Team Providers Care Grease Refiner Operator Name Role Phone Baljeet Doran MD Primary Care Provider Reason for Referral * Imaging (Routine) - Closed Specialty Diagnoses / Procedures Referred By Contac t Referred To Contact RADIOLOGY Diagnoses Testicular cyst Procedures US TESTICULAR W DOPPLER Baljeet Doran MD [address] [address] Phone: tel: fax: [place] [address] Phone: tel: fax: Referral ID Status Reason Start Date Expiration Date Visits Re quested Visits Authorized [id number] Closed 08/06/2019 09/04/2020 1 1 WALKER Reason for Visit * Reason Onset Date Comments Orders 08/06/2019 Testicular US Encounter Details Date Type Department Care Team (Late st Contact Info) Description 08/06/2019 Telephone [facility] Family Medicine - [place] [address], [address] [facility] [id number] Baljeet Doran MD [address] [place] [address] Orders (Testicular US) Social History Tobacco Use Types Packs/Day Years Used Date Smoking Tobacco: Never Smokeless Tobacco: Never Sex and Gender Information Value Date Recorded Sex Assigned at Not on file Legal Sex Male 12:41 AM CDT Gender Identity Not on file Sexual Orientation Not on file documented as of this encounter Progress Notes * Estela Diaz RN - 08/06/2019 1:55 PM CST Gaye from [facility] is calling because pt is trying to schedule testicular US. States thatthe order will need to be US Testicular with doppler. Order made and faxed to [phone]. Fax confirmation received and confirmed. Pt states he tried to have US done with [facility] but they told him that they don't accept his insurance so this is why he is going to [facility] to have this done. Pt transferred to scheduling tocancel appt with [facility]. 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
--- OUTSIDE RECORDS SUMMARY | 2024-07-20 15:37 | XMS_ITS | Encounter Summary ---
Author Organization [facility] Address [facility]6 [facility] [place] [address] [place] [address] Care Team Providers Care Jaw Skinner Name Role Phone Baljeet Doran MD Primary Care Provider Reason for Visit * Reason Onset Date Comments Medication 12/31/2019 Encounter Details Date Type Department Care Team (Late st Contact Info) Description 12/31/2019 Telephone [facility] Multispecialty Care - [facility] 3 [facility], [address] [place] [address] Delonte Agudelo MD [address] [place] [phone] Medication Social History Tobacco Use Types Packs/Day Years [...] Progress Notes * Cinthia Maurice RN - 12/31/2019 3:55 PM CDT Spoke to Yas at [facility] pharmacy. Clarified the dosage and instructions for naproxen and docusate sodium RX. * Mikala Chao - 12/31/2019 3:06 PM CDT [facility] Pharmacy called in, received scripts for Naproxen 1 every 12 hours for 7 days but quantity is 60 Docusate 1 every 12 hours for 7 days but quantity is 60 Please follow up with [facility] to clarify. documented in this encounter Plan of Treatment Not on file documented as of this encounter Visit Diagnoses Not on filedocumented in this encounter Care Teams Jaw Skinner Relationship Specialty Start Date End Date Baljeet Doran MD [address] [address] PCP - General 11/24/16 documented as of this encounter
--- OUTSIDE RECORDS SUMMARY | 2024-07-20 15:37 | XMS_ITS | Encounter Summary ---
Author Organization [facility] - [facility] Address [facility]6 [facility] [place] [address] [place] [address] Care Team Providers Care Front Desk Clerk Name Role Phone Baljeet Doran MD Primary Care Provider Encounter Details Date Type Department Care Team (Late st Contact Info) Description 08/19/2019 Orders Only [facility] Multispecialty Care - [facility] 3 [facility], [address] [place] [id number] Alondra Adamson MA Social History Tobacco Use Types Packs/Day [...] on filedocumented in this encounter Care Teams Front Desk Clerk Relationship Specialty Start Date End Date Baljeet Doran MD [address] [place] [address] PCP - General 11/24/16 documented as of this encounter
--- OUTSIDE RECORDS SUMMARY | 2024-07-20 15:37 | XMS_ITS | Encounter Summary ---
Author Organization [facility] Address [facility] [place] [address] [place] [address] Care Team Providers Care Java Jsf Developer Name Role Phone Baljeet Doran MD Primary Care Provider Encounter Details Date Type Department Care Team (Latest Contact Info) Description 12/25/2019 Scan HEALTH INFO SR[facility] Scanned, Documents Social [...] documented as of this encounter Care Teams Java Jsf Developer Relationship Specialty Start Date End Date Baljeet Doran MD [address] [place] [address] PCP - General 11/24/16 documented as of this encounter
--- OUTSIDE RECORDS SUMMARY | 2024-07-20 15:37 | XMS_ITS | Encounter Summary ---
Author Organization [facility] Address [facility]6 [facility] [place] [address] [place] [address] Care Team Providers Care Sewing Machine Operator Semiautomatic Name Role Phone Baljeet Doran MD Primary Care Provider Encounter Details Date Type Department Care Team (Latest Contact Info) Description 10/31/2020 Travel Social History Tobacco Use Types Packs/Day [...] on filedocumented in this encounter Care Teams Sewing Machine Operator Semiautomatic Relationship Specialty Start Date End Date Baljeet Doran MD [address] [place] [address] PCP - General 11/24/16 documented as of this encounter
--- OUTSIDE RECORDS SUMMARY | 2024-07-20 15:38 | XMS_ITS | Encounter Summary ---
Author Organization [facility] Address [address] [place] [address] [place] [address] Care Team Providers Care Pressing Department Supervisor Name Role Phone Baljeet Doran MD Primary Care Provider Baljeet Doran MD Primary Care Provider Baljeet Doran MD Primary Care Provider Encounter Details Date Type Department Care Team (Latest Contact Info) Description 06/27/2016 Abstract [facility] Group Baljeet Doran MD [address] [place] [address] Social History Tobacco Use Types Packs/Day [...] on filedocumented in this encounter Care Teams Pressing Department Supervisor Relationship Specialty Start Date End Date Baljeet Doran MD [address] [place] [address] PCP - General 11/24/16 Baljeet Doran MD [address] [place], [place] [id number] PCP - General 07/26/16 11/23/16 Baljeet Doran MD [address] [place] [id number] PCP - General 06/01/16 07/25/16 documented as of this encounter
--- OUTSIDE RECORDS SUMMARY | 2024-07-20 15:38 | XMS_ITS | Encounter Summary ---
Author Organization [facility] Address [facility] [place] [address] [place] [address] Care Team Providers Care Mortuary Beautician Name Role Phone Baljeet Doran MD Primary Care Provider Baljeet Doran MD Primary Care Provider Baljeet Doran MD Primary Care Provider Baljeet Doran MD Primary Care Provider Md Generic Conversion Primary Care Provider Unavailable Md Generic Conversion Primary Care Provider Unavailable Encounter Details Date Type Department Care Team (Late st Contact Info) Description 11/29/2012 Emergency [facility] [place] [address] Basim Sanford MD Social History Tobacco Use Types Packs/Day Years Used Date Smoking Tobacco: Never Assessed Sex and Gender Information Value Date Recorded Sex Assigned at Not on file Legal Sex Male 12:41 AM CDT Gender Identity Not on file Sexual Orientation Not on file documented as of this encounter Plan of Treatment Not on file documented as of this encounter Visit Diagnoses Diagnosis Anxiety state Anxiety state, unspecified documented in this encounter Care Teams Mortuary Beautician Relationship Specialty Start Date End Date Baljeet Doran MD [address] [place] [address] PCP - General 11/24/16 Baljeet Doran MD [address] [place], [place] [address] PCP - General 07/26/16 11/23/16 Baljeet Doran MD [address] [place], [place] [address] PCP - General 06/01/16 07/25/16 Baljeet Doran MD [address] [place], [place] [address] PCP - General 05/26/16 05/31/16 , Generic Conversion, PCP - General 01/12/13 , Generic Conversion, PCP - General 11/29/12 documented as of this encounter
--- OUTSIDE RECORDS SUMMARY | 2024-07-20 15:38 | XMS_ITS | Encounter Summary ---
Author Organization [facility] Address [facility]6 [facility] [place] [address] [place] [address] Care Team Providers Care Medical Record Librarians Teacher Name Role Phone Baljeet Doran MD Primary Care Provider Baljeet Doran MD Primary Care Provider Baljeet Doran MD Primary Care Provider Baljeet Doran MD Primary Care Provider Encounter Details Date Type Department Care Team (Latest Contact Info) Description 05/27/2016 Abstract [facility] Social History Tobacco Use Types Packs/Day Years Used Date Smoking Tobacco: Never Assessed Sex and Gender Information Value Date Recorded Sex Assigned at Not on file Legal Sex Male 12:41 AM CDT Gender Identity Not on file Sexual Orientation Not on file documented as of this encounter Progress Notes * Generic Conversion MD Joe - 05/27/2016 12:51 PM CST Message Recorded as Task Date: 05/26/2016 03:42 PM, Created By: Baljeet Doran Task Name: Call Patient with results Assigned To: [facility] - NURSES Regarding Patient: Raffaele Valenzuela, Status: Complete Comment: Baljeet Doran - 26 May 2016 3:42 PM 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 Appointment was scheduled for 06/01/2016 at 0930. Patient verbalized understanding with no further questions. [email or web address] Signatures Electronically signed by : Amy Phillips, ; May 27 2016 12:52PM DATA PROCESSING CLERK (Author) documented in this encounter Plan of Treatment Not on file documented as of this encounter Visit Diagnoses Not on filedocumented in this encounter Care Teams Medical Record Librarians Teacher Relationship Specialty Start Date End Date Baljeet Doran MD [address] [place] [address] PCP - General 11/24/16 Baljeet Doran MD [address] [place], [place] [address] PCP - General 07/26/16 11/23/16 Baljeet Doran MD [address] [place], [place] [address] PCP - General 06/01/16 07/25/16 Baljeet Doran MD [address] [place], [place] [address] PCP - General 05/26/16 05/31/16 documented as of this encounter
--- OUTSIDE RECORDS SUMMARY | 2024-07-20 15:38 | XMS_ITS | Encounter Summary ---
Author Organization [facility] Address [facility]6 [place] [address] [place] [address] Care Team Providers Care Processing Operator Name Role Phone Baljeet Doran MD [...] Care Team (Late st Contact Info) Description 01/09/[address] [facility] [address] [place], [place] [id number] Vicky Vora, ROOM WORKER [address] [facility] [address] [place] [address] Social History Tobacco Use Types Packs/Day Years Used Date Smoking Tobacco: Never Assessed Sex and Gender Information Value Date Recorded Sex Assigned at Not on file Legal Sex Male 12:41 AM CDT Gender Identity Not on file Sexual Orientation Not on file documented as of this encounter Plan of Treatment Not on file documented as of this encounter Visit Diagnoses Diagnosis Periapical abscess without sinus tract Periapical abscess without sinus documented in this encounter Care Teams Processing Operator Relationship Specialty Start Date End Date Baljeet Doran MD [address] [place] [address] PCP - General 11/24/16 Baljeet Doran MD [address] [place], [place] [address] PCP - General 07/26/16 11/23/16 Baljeet Doran MD [address] [place], [place] [address] PCP - General 06/01/16 07/25/16 Baljeet Doran MD [address] [place], [place] [address] PCP - General 05/26/16 05/31/16 , Generic Conversion, PCP - General 01/12/13 , Generic Conversion, PCP - General 11/29/12 , Generic Conversion, PCP - General 11/28/12 , Generic Conversion, PCP - General 01/09/12 documented as of this encounter
--- OUTSIDE RECORDS SUMMARY | 2024-07-20 15:38 | XMS_ITS | Encounter Summary ---
Author Organization [facility] Address [address] [place] [address] [place] [address] Care Team Providers Care Putty And Patch Worker Name Role Phone Baljeet Doran MD Primary Care Provider Baljeet Doran MD Primary Care Provider Encounter Details Date Type Department Care Team (Latest Contact Info) Description 08/02/2016 Abstract [facility] Baljeet Doran MD [address] [place] [address] Social History Tobacco Use Types [...] on filedocumented in this encounter Care Teams Putty And Patch Worker Relationship Specialty Start Date End Date Baljeet Doran MD [address] [place], [place] [id number] PCP - General 11/24/16 Baljeet Doran MD [address] [place], [place] [phone] PCP - General 07/26/16 11/23/16 documented as of this encounter
--- OUTSIDE RECORDS SUMMARY | 2024-07-20 15:38 | XMS_ITS | Encounter Summary ---
Author Organization [facility] Address [address] [facility] [address] [place] [address] Care Team Providers Care House Manager Name Role Phone Baljeet Doran MD [...] Care Team (Late st Contact Info) Description 07/17/2010 Emergency [facility] Emergency Room [address] [place], [place] [id number] Ayla Carney MD [address] [place] [address] Social History Tobacco Use Types Packs/Day Years Used Date Smoking Tobacco: Never Assessed Sex and Gender Information Value Date Recorded Sex Assigned at Not on file Legal Sex Male 12:41 AM CDT Gender Identity Not on file Sexual Orientation Not on file documented as of this encounter Plan of Treatment Not on file documented as of this encounter Visit Diagnoses Diagnosis Opioid abuse ([facility]) Opioid abuse, unspecified documented in this encounter Care Teams House Manager Relationship Specialty Start Date End Date Baljeet Doran MD [address] [place] [address] PCP - General 11/24/16 Baljeet Doran MD [address] [place] [address] PCP - General 07/26/16 11/23/16 Baljeet Doran MD [address] [place], [place] [address] PCP - General 06/01/16 07/25/16 Baljeet Doran MD [address] [place], [place] [address] PCP - General 05/26/16 05/31/16 Md Generic Conversion, PCP - General 01/12/13 Md Generic Conversion, PCP - General 11/29/12 Md Generic Conversion, PCP - General 11/28/12 Md Generic Conversion, PCP - General 01/09/12 Md Generic Conversion, PCP - General 01/08/12 Md Generic Conversion, PCP - General 04/23/11 Md Generic Conversion, PCP - General 02/22/11 Md Generic Conversion, PCP - General 02/21/11 1 Md, Generic Conversion, MD PCP - General 02/20/11 1 , Generic Conversion, MD PCP - General 01/22/11 1 , Generic Conversion, PCP - General 01/21/11 1 Md Generic Conversion, PCP - General 07/17/10 1 documented as of this encounter
--- OUTSIDE RECORDS SUMMARY | 2024-07-20 15:38 | XMS_ITS | Encounter Summary ---
Author Organization [facility] Address [facility] [place] [address] [place] [address] Care Team Providers Care Architecture Department Chair Name Role Phone Baljeet Doran MD Primary Care Provider Encounter Details Date Type Department Care Team (Late st Contact Info) Description 11/24/2016 Abstract [facility] Family Medicine - [place] [address], [address] [place] [id number] Baljeet Doran MD [address] [place], [place] [id number] Social History Tobacco Use Types Packs/Day Years Used Date Smoking Tobacco: Never Assessed Sex and Gender Information Value Date Recorded Sex Assigned at Not on file Legal Sex Male 12:41 AM CDT Gender Identity Not on file Sexual Orientation Not on file documented as of this encounter Last Filed Vital Signs Vital Sign Reading Time Taken Comments Blood Pressure 120/68 11/24/2016 9:21 AM CDT Pulse 72 11/24/2016 9:21 AM CDT Temperature - - Respiratory Rate - - Oxygen Saturation - - Inhaled Oxygen Concentration - - Weight 93.4 kg (206 lb) 11/24/2016 9:21 AM CDT Height - - Body Mass Index 29.56 05/25/2016 8:15 AM MEDICAL EDUCATOR documented in this encounter Progress Notes * Baljeet Doran MD - 11/24/2016 12:18 PM CDT Message normal X-ray of the back, continue with current medications Verified Results XR T-SPINE 3 VIEW ( Routine ) [id number] 10:38AM Baljeet Doran Test Name Result Flag Reference XR T-SPINE 3 VIEW (Report) GIOVANA LEBRON ADMIT/SERVICE DATE: 11/24/16 ACCT: [id number] DISCHARGE DATE: : 1980 SEX: M ORD SITE: [facility] PT TYPE: REG CLI ORDERING MD: BALJEET DORAN MD STUDY DATE REPORT # ORDER # EXT ORDER ID 11/24/16 [id number] PROC CODE: [id number] PROCEDURE DESCRIPTION: XR THORACIC SPINE 3 VIEWS IMPRESSION: UNREMARKABLE THORACIC SPINE. EXAMINATION: THORACIC SPINE EXAM DATE/TIME: 11/24/2016 10:27 AM CLINICAL HISTORY: BACK PAIN COMPARISON: NONE TECHNIQUE: 3 VIEWS FINDINGS: 12 THORACIC TYPE VERTEBRAE ARE IDENTIFIED. VERTEBRAL BODY HEIGHT AND ALIGNMENT ARE NORMAL AT ALL LEVELS. NO EVIDENCE OF FRACTURE OR MALALIGNMENT. ELECTRONICALLY SIGNED BY: LONNIE SANTACRUZ11/24/2016 10:54 AM * Baljeet Doran MD - 11/24/2016 9:45 AM CDT Reason For Visit Reason For Visit: Acute Visit, Other: Chief Complaint back pain between shoulders with worsening pain. History of Present Illness HPI Free Text: He has pain in the middle of the back between the shoulder blades. He has not had physical therapy for this. This started years ago and flares up everyday 6- 10 hours after work. He has no pain radiating down, but it seems to radiate up. If he rolls his neck he has pain. He has not tried anything other than Tylenol which helps somewhat. He has had some muscle spasms when he tries to wipe after using the restroom. He has no radiation down the arms. At times when he steps off a curb, that will give him a twinge of pain. He has less pain when he wakes in the AM. He doesn't recall any specific injury. He states he has been to a chiropractor back in 2001 for this issue. He has had X-ray several years ago. He has impaired fasting glucose and HLP and has not changed his diet or repeated his fasting labs. He will need to work on this and repeat the labs. Review of Systems Constitutional: Normal. ENT: normal. Cardiovascular: Normal. Respiratory: Normal. Gastrointestinal: Normal. Genitourinary: Normal. Integumentary: Normal. Musculoskeletal: Normal. Neurological: Normal. Psychiatric: Normal. Active Problems 1. Hyperlipidemia (272.4) (E78.5) 2. Impaired fasting glucose (790.21) (R73.01) 3. Testicular mass (608.89) (N50.9) Past Medical History Patient indicats no significant past medical history. Surgical History 1. History of Elbow Surgery ?? repair in 2007 work accident on the left, right side in 2000 Family History Father 1. Family history of coronary arteriosclerosis (V17.3) (Z82.49) 2. Family history of stroke (V17.1) (Z82.3) Maternal Grandmother 3. Family history of stroke (V17.1) (Z82.3) Social History ? mother Jyothi Ferguson, mother's dog a little pug ?? High school graduate ?? Lack of exercise (V69.0) (Z72.3) ?? Never smoker ?? No drug use ?? No pentecostalism beliefs ?? Occasional alcohol use ?? beer on special occasions ?? Occupation ?? [employer] ?? Recreational activities ?? dirt track racing events, baseball games, socializing with family Current Meds 1. No Reported Medications Recorded ANTONIETTA = N; ; Last Updated By: Kamille Willson; 07/05/2016 11:55:50 AM Allergies 1. No Known Drug Allergies Recorded By: Kamille Willson; 05/25/2016 8:22:23 AM Vitals Recorded: [id number] 09:21AM Temperature 97.6 F Heart Rate 72 Respiration 16 Systolic 120 Diastolic 68 O2 Saturation 98 Weight 206 lb BMI Calculated 29.56 BSA Calculated 2.11 Physical Exam Constitutional General appearance: No acute distress, well appearing and well nourished. Pulmonary Respiratory effort: No increased work of breathing or signs of respiratory distress. Auscultation of lungs: Clear to auscultation. Cardiovascular Auscultation of heart: Normal rate and rhythm, normal S1 and S2, without murmurs. Examination of extremities for edema and/or varicosities: Normal. Abdomen Abdomen: Non-tender, no masses. Liver and spleen: No hepatomegaly or splenomegaly. Musculoskeletal Gait and station: Normal. Inspection/palpation of joints, bones, and muscles: Abnormal. no spinal tenderness, positive paraspinal muscle tenderness in the upper thoracic region. Psychiatric Orientation to person, place and time: Normal. Mood and affect: Normal. Assessment 1. Upper back pain (724.5) (M54.9) 2. Overweight (278.02) (E66.3) 3. Hyperlipidemia (272.4) (E78.5) 4. Impaired fasting glucose (790.21) (R73.01) Plan Hyperlipidemia 1. Lipid Profile; Status:Active; Requested for:22Nov2016; Perform:[facility]; Due:22Dec2016; Last Updated By:Merissa Valladares; 11/22/2016 5:27:30 PM;Ordered; For:Hyperlipidemia; Ordered By:Baljeet Doran; Impaired fasting glucose 2. Basic Metabolic Prof ( BMP ); Status:Active; Requested for:22Nov2016; Perform:[facility]; Due:22Dec2016; Last Updated By:Merissa Valladares; 11/22/2016 5:27:30 PM;Ordered; For:Impaired fasting glucose; Ordered By:Baljeet Doran; Overweight 3. Avoid food and drinks with a lot of sugar and carbohydrates such as white bread, fruit juice, soda and sweets.; Status:Complete; Done: 24Nov2016 09:54AM Ordered; For:Overweight; Ordered By:Baljeet Doran; 4. Diets that are low in carbohydrates and high in protein are very popular for weight loss.; Status:Complete; Done: 24Nov2016 09:54AM Ordered; For:Overweight; Ordered By:Baljeet Doran; 5. Exercise daily and eat a diet low in salt, fats, and sweets.; Status:Complete; Done: 24Nov2016 09:54AM Ordered; For:Overweight; Ordered By:Blajeet Doran; 6. We encourage all of our patients to exercise regularly. 30 minutes of exercise or physical activity five or more days a week is recommended for children and adults.; Status:Complete; Done: 24Nov2016 09:54AM Ordered; For:Overweight; Ordered By:Baljeet Doran; 7. Weigh yourself every day. We can use this information to help us treat your problem.; Status:Complete; Done: 24Nov2016 09:54AM Ordered; For:Overweight; Ordered By:Baljeet Doran; 8. Your child's body mass index (BMI) is high for his/her age.; Status:Complete; Done: 24Nov2016 09:54AM Ordered; For:Overweight; Ordered By:Baljeet Doran; Upper back pain 9. Cyclobenzaprine HCl - 10 MG Oral Tablet; TAKE 1 TABLET AT BEDTIME Rx By: Baljeet Doran; Dispense: 14 Days ; #:14 Tablet; Refill: 1; For: Upper back pain; ANTONIETTA = N;Sent To: [facility] 10. Naproxen 500 MG Oral Tablet; TAKE 1 TABLET EVERY 12 HOURS NEEDED Rx By: Baljeet Doran; Dispense: 14 Days ; #:28 Tablet; Refill: 1; For: Upper back pain; ANTONIETTA = N;[facility] 11. Physical Therapy Referral Outpatient 36 yo male with acute on chronic upper back pain that started back in 2001 with no known injury. This flares up with his active job and bothers him on daily basis. No significant radiation. please eval & treat, thanks. Status: Need Information - Financial Authorization Requested for: 24Nov2016 Ordered; For: Upper back pain; Ordered By: Baljeet Doran Performed: Due: 08Dec2016 12. XR T-SPINE 3 VIEW ( Routine ); Status:Active; Requested for:24Nov2016; Perform:[facility]; Due:24Dec2016;Ordered; For:Upper back pain; Ordered By:Baljeet Doran; Discussion/Summary Upper back pain: This is between the shoulder blades and is aggravates by his job. He has no radiation down the arms or the spine. Will try naprosyn 500 mg po bid, flexeril 10 mg po qHS and physical therapy. Will also get plain films. RTC if no resolution. Impaired fasting glucose: He is just overdue for these repeat labs and will get them and f/u afterwards. HLP/Hypertriglyceridemia: WIll work on diet and exercise and repeat the fasting labs. f/u after fasting labs in 4-6 weeks for an annual physical Signatures Electronically signed by : Baljeet Doran M.D.; Nov 24 2016 9:54AM MEDICAL EDUCATOR (Author) documented in this encounter Plan of Treatment Not on file documented as of this encounter Procedures Procedure Name Priority Date/Time Associated Diagnosis Comments BASIC METABOLIC PANEL Routine 04/24/2017 11:49 AM CDT LIPID PANEL Routine 04/24/2017 11:49 AM CDT XR THOR SPINE 3V Routine 11/24/2016 10:3 8 AM CDT documented in this encounter Results * (ABNORMAL) LIPID PANEL (04/24/2017 11:49 AM CDT) CHOLESTEROL 213(H) <200 MG/DL [facility] TO EPIC CONVERSION Comment: Result Comment: NOTE: Acetaminophen, N Acetyl p benzoquinone imine (NAPQI), N acetylcysteine (NAC), Metamizole, 4 Aminoantipyrine (4 AAP) and 4 Methylamino antipyrine (4 MAP) at high concentrations can cause falsely low results on Lactate, Uric Acid, Cholesterol, Triglyceride, HDL, and Direct LDL. TRIGLYCERIDES 221(H) <150 MG/DL [facility] TO EPIC CONVERSION HDL 43(L) >59 MG/DL [facility] TO EPIC CONVERSION LDL (CALCULATED) 126(H) <100 MG/DL [facility] TO EPIC CONVERSION NON HDL CHOLESTEROL 170(H) <130 MG/DL [facility] TO EPIC CONVERSION Comment: Result Comment: NOTE: WHEN THE TRIGLYCERIDES ARE >200 mg/dL, NON HDL C IS A SECONDARY TARGET OF THERAPY, WITH A GOAL 30 mg/dL HIGHER THAN THE IDENTIFIED LDL C GOAL. CHOL/HDL RATIO 5.0(H) 0.0 - 4.5 [facility] TO EPIC CONVERSION VLDL CHOLESTEROL (LMP) 44 5 - 55 MG/DL [facility] TO EPIC CONVERSION LIPID INTERPRETATION NIH CONCENSUS REPORT RECOMMENDATI ONS: ?ADULT ?CHILD ??LOW RISK: ?CHOLESTERO L ? <200 ? <170 ?TRIGLYCERI DE ?<150 ?--- ?HDL ? >=60 ?--- ?LDL ? <100 ? <110 ?BORDERLINE : ?CHOLESTERO L ? 200-239 ?? 170-199 ?TRIGLYCERI DE ?150-199 ? --- ?HDL ?40-59 ?--- ?LDL ? 100-159 ?? 110-129 ?HIGH RISK: ?CHOLESTERO L ? >=240 ?>=200 ?TRIGLYCERI DE ?>=200 ? --- ?HDL ?<40 ?--- ?LDL ? >=160 ?>=130 [facility] TO EPIC CONVERSION 04/24/2017 11:4 9 AM CDT 04/24/2017 11:49 AM CDT Narrative [facility] TO [facility]IC CONVERSION - 04/24/2017 7:15 PM CDT 26Apr2017 5:44PM by Baljeet Doran: ??hypertriglyceridemia Result Communication: Discussed results with patient us Baljeet Doran MD LABORATORY Final R esult [facility] TO EPIC CONVERSION * BASIC METABOLIC PANEL (04/24/2017 11:49 AM CDT) [facility] GLUCOSE 99 70 - 99 mg/dL [facility] TO [facility]IC CONVERSION BUN 14 8 - 23 mg/dL [facility] TO [facility]IC CONVERSION CREATININE S/P/B 1.05 0.70 - 1.20 mg/dL [facility] TO EPIC CONVERSION SODIUM S/P/B 139 136 - 145 mmol/L [facility] TO EPIC CONVERSION POTASSIUM S/P/B 5.0 3.5 - 5.1 mmol/L [facility] TO EPIC CONVERSION CHLORIDE S/P/B 102 98 - 107 mmol/L [facility] TO EPIC CONVERSION CO2 28 22 - 29 mmol/L [facility] TO EPIC CONVERSION CALCIUM S/P/B 9.4 8.6 - 10.2 mg/dL [facility] TO EPIC CONVERSION ANION GAP 14 8 - 20 [facility] T O EPIC CONVERSION GFR ESTIMATE >60 >60 mL/min/1. 73m'2 [facility] TO EPIC CONVERSION EGFR AFR. AMER. >60 NOTE: eGFR is not calculated for patients <18 years of age. This is an estimated GFR (CKD EPI) and should not be used for calculating drug doses. >60 mL/min/1. 73m'2 [facility] TO EPIC CONVERSION 04/24/2017 11:4 9 AM CDT 04/24/2017 11:49 AM CDT Narrative [facility] TO [facility]IC CONVERSION - 04/24/2017 7:15 PM CDT 26Apr2017 5:45PM by Baljeet Doran: ??hypertriglyceridemia Result Communication: Discussed results with patient us Baljeet Doran MD LABORATORY Final R esult [facility] TO EPIC CONVERSION * XR THOR SPINE 3V (11/24/2016 10:38 AM CDT) Anatomical Region Laterality Modality Spine Radiographic Ree ging 11/24/2016 10:3 8 AM CDT 11/24/2016 10:38 AM CDT Narrative 11/24/2016 10:58 AM CDT BERNARDINOGIOVANAChristiano LASSITER ? ADMIT/SERVICE DATE: 11/24/16 ?? ACCT: [id number] ?DISCHARGE DATE: ?? : 1980 ??SEX: M ?ORD SITE: [facility] ?? PT TYPE: REG CLI ? ORDERING MD: ALYSON,BALJEET MD ? STUDY DATE ? REPORT # ?ORDER # ? EXT ORDER ID ?? 11/24/16 ? [id number] ? [id number] ?[id number] ? PROC CODE: ? [id number] ? PROCEDURE DESCRIPTION: ?? XR THORACIC SPINE 3 VIEWS ? IMPRESSION: ?? UNREMARKABLE THORACIC SPINE. ? EXAMINATION: THORACIC SPINE ? EXAM DATE/TIME: 11/24/2016 10:27 AM ? CLINICAL HISTORY: BACK PAIN ? COMPARISON: NONE ? TECHNIQUE: ??3 VIEWS ? FINDINGS: ?? 12 THORACIC TYPE VERTEBRAE ARE IDENTIFIED. ? VERTEBRAL BODY HEIGHT AND ALIGNMENT ARE NORMAL AT ALL LEVELS. ? NO EVIDENCE OF FRACTURE OR MALALIGNMENT. ? ELECTRONICALLY SIGNED BY: LONNIE SANTACRUZ11/24/2016 10:54 AM ? Procedure Note Oneida Diaz MD - 05/11/2018 GIOVANA LEBRON ADMIT/SERVICE DATE:11/24/16 ACCT: [id number] DISCHARGE DATE: : 1980 SEX: M [facility] TYPE: REG CLI ORDERING MD:BALJEET DORAN MD STUDY DATE REPORT # ORDER # EXT ORDER ID 11/24/16 [id number] PROC CODE: [id number] PROCEDURE DESCRIPTION: XR THORACIC SPINE 3 VIEWS IMPRESSION: UNREMARKABLE THORACIC SPINE. EXAMINATION: THORACIC SPINE EXAM DATE/TIME: 11/24/2016 10:27 AM CLINICAL HISTORY: BACK PAIN COMPARISON: NONE TECHNIQUE: 3 VIEWS FINDINGS: 12 THORACIC TYPE VERTEBRAE ARE IDENTIFIED. VERTEBRAL BODY HEIGHT AND ALIGNMENT ARE NORMAL AT ALL LEVELS. NO EVIDENCE OF FRACTURE OR MALALIGNMENT. ELECTRONICALLY SIGNED BY: LONNIE SANTACRUZ11/24/2016 10:54 AM Baljeet Doran MD GENERAL IMAGING Final R esult documented in this encounter Visit Diagnoses Not on filedocumented in this encounter Care Teams Architecture Department Chair Relationship Specialty Start Date End Date Baljeet Doran MD [address] [place] [address] PCP - General 11/24/16 documented as of this encounter
--- OUTSIDE RECORDS SUMMARY | 2024-07-20 15:38 | XMS_ITS | Encounter Summary ---
Author Organization [facility] Address [address] [place] [address] [place] [address] Care Team Providers Care Software Engineering Manager Name Role Phone Baljeet Doran MD Primary Care Provider Baljeet Doran MD Primary Care Provider Baljeet Doran MD Primary Care Provider Baljeet Doran MD Primary Care Provider Oneida Rice MD Primary Care Provider Unavailable Md Generic Maury RICE Primary Care Provider Unavailable Md Generic Maury RICE Primary Care Provider Unavailable Md Generic Maury RICE Primary Care Provider Unavailable Md Generic Maury RICE Primary Care Provider Unavailable Md Generic Maury RICE Primary Care Provider Unavailable Oneida Rice MD Primary Care Provider Unavailable Md Generic Maury RICE Primary Care Provider Unavailable Md Generic Maury RICE Primary Care Provider Unavailable Md Generic Maury RICE Primary Care Provider Unavailable Md Generic Maury RICE Primary Care Provider Unavailable Md Generic Maury RICE Primary Care Provider Unavailable Encounter Details Date Type Department Care Team (Late st Contact Info) Description 08/30/2005 Emergency [facility] Emergency [place], [place] [address] Oneida Rice MD Social History Tobacco Use Types Packs/Day [...] on filedocumented in this encounter Care Teams Software Engineering Manager Relationship Specialty Start Date End Date Baljeet Doran MD [address] [place] [address] PCP - General 11/24/16 Baljeet Doran MD [address] [place] [address] PCP - General 07/26/16 11/23/16 Baljeet Doran MD [address] [place], [place] [address] PCP - General 06/01/16 07/25/16 Baljeet Doran MD [address] [place], [place] [address] PCP - General 05/26/16 05/31/16 Md Generic Conversion, PCP - General 01/12/13 , Generic Conversion, PCP - General 11/29/12 , Generic Conversion, PCP - General 11/28/12 , Generic Conversion, PCP - General 01/09/12 , Generic Conversion, PCP - General 01/08/12 , Generic Conversion, PCP - General 04/23/11 , Generic Conversion, PCP - General 02/22/11 , Generic Conversion, PCP - General 02/21/11 1 , Generic Conversion, PCP - General 02/20/11 1 , Generic Conversion, PCP - General 01/22/11 1 Md, Generic Conversion, PCP - General 01/21/11 1 , Generic Conversion, PCP - General 07/17/10 1 documented as of this encounter
--- OUTSIDE RECORDS SUMMARY | 2024-07-20 15:38 | XMS_ITS | Encounter Summary ---
Author Organization [facility] Address [address] [place] [address] [place] [address] Care Team Providers Care Metal Framer Name Role Phone Baljeet Doran MD Primary Care Provider Baljeet Doran MD Primary Care Provider Baljeet Doran MD Primary Care Provider Baljeet Doran MD Primary Care Provider Md Generic Maury RICE Primary Care Provider Unavailable Md Generic Conversion [...] Care Team (Late st Contact Info) Description 03/21/2008 [place] [address] Oneida Rice MD Social History Tobacco Use [...] on filedocumented in this encounter Care Teams Metal Framer Relationship Specialty Start Date End Date Baljeet Doran MD [address] [place] [address] PCP - General 11/24/16 Baljeet Doran MD [address] [place] [address] PCP - General 07/26/16 11/23/16 Baljeet Doran MD [address] [place] [address] PCP - General 06/01/16 07/25/16 Baljeet Doran MD [address] [place], [place] [address] PCP - General 05/26/16 05/31/16 , Generic [...] - General 02/21/11 1 Md, Generic Conversion, PCP - General 02/20/11 1 , Generic Conversion, PCP - General 01/22/11 1 , Generic Conversion, PCP - General 01/21/11 1 Md, Generic Conversion, MD PCP - General 07/17/10 1 documented as of this encounter
--- OUTSIDE RECORDS SUMMARY | 2024-07-20 15:38 | XMS_ITS | Encounter Summary ---
Author Organization [facility] Address [facility] [place] [address] [place] [address] Care Team Providers Care Silk Screen Printer Machine Name Role Phone Baljeet Doran MD Primary Care Provider Baljeet Doran MD Primary Care Provider Baljeet Doran MD Primary Care Provider Baljeet Doran MD Primary Care Provider Encounter Details Date Type Department Care Team (Latest Contact Info) Description 05/26/2016 Abstract [facility] Oneida Diaz MD Social History Tobacco Use Types Packs/Day Years Used Date Smoking Tobacco: Never Assessed Sex and Gender Information Value Date Recorded Sex Assigned at Not on file Legal Sex Male 12:41 AM CDT Gender Identity Not on file Sexual Orientation Not on file documented as of this encounter Progress Notes * Oneida Mendiola Md, MD - 05/26/2016 5:26 PM CST Message Recorded as Task Date: 05/26/2016 03:42 PM, Created By: Baljeet Doran Task Name: Call Patient with results Assigned To: [facility] - NURSES Regarding Patient: Raffaele Valenzuela, Status: Active Comment: Baljeet Doran - 26 May 2016 3:42 PM Patient 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 No answer. LMOM advising of xr results and option for shoulder steroid injection. Requested pt call us back and speak with nursing so wecan discuss steroid injection. depRN Signatures Electronically signed by : Kajal Baum R.N.; May 26 2016 5:28PM HAND KNITTER (Author) * Baljeet Doran MD - 05/26/2016 4:50 PM CST Verified Results Basic Metabolic Prof ( BMP ) 26May2016 07:55AM Baljeet Doran Test Name Result Flag Reference Glucose 102 mg/dL H 70-99 Blood Urea Nitrogen (BUN) 13 mg/dL 8-23 Creatinine 0.85 mg/dL 0.70-1.20 Sodium (Na) 143 mmol/L 136-145 Potassium (K) 4.0 mmol/L 3.5-5.1 Chloride (Cl) 99 mmol/L 98-107 Carbon Dioxide (CO2) 33 mmol/L H 22-29 Calcium 9.7 mg/dL 8.6-10.2 Anion Gap 15 8-20 Glomerular Filt Rate Calc >60 mL/min/1.73m'2 >60 Glomerular Filt Rate (AA) Calc >60 >60 NOTE: eGFR is not calculated for patients <18 years of age. This is an estimated GFR (CKD EPI) and should not be used for calculating drug doses. mL/min/1.73m'2 Lipid Profile 26May2016 07:55AM Baljeet Doran Test Name Result Flag Reference CHOLESTEROL 203 MG/DL H <200 NOTE: Acetaminophen, N Acetyl p benzoquinone imine (NAPQI), N acetylcysteine (NAC), Metamizole, 4 Aminoantipyrine (4 AAP) and 4 Methylamino antipyrine (4 MAP) at high concentrations can cause falsely low results on Lactate, Uric Acid, Cholesterol, Triglyceride, HDL, and Direct LDL. TRIGLYCERIDE 156 MG/DL H <150 HDL CHOLESTEROL 41 MG/DL L >59 LDL CALCULATED 131 MG/DL H <100 Non HDL, Calc 162 MG/DL H <130 NOTE: WHEN THE TRIGLYCERIDES ARE >200 mg/dL, NON HDL C IS A SECONDARY TARGET OF THERAPY, WITH A GOAL 30 mg/dL HIGHER THAN THE IDENTIFIED LDL C GOAL. CHOL/HDL RATIO 5.0 H 0.0-4.5 VLDL Cholesterol 31 MG/DL 5-55 Lipid Profile Comment 1 (Report) NIH CONCENSUS REPORT RECOMMENDATIONS: ADULT CHILD LOW RISK: CHOLESTEROL <200 <170 TRIGLYCERIDE <150 --- HDL >=60 --- LDL <100 <110 BORDERLINE: CHOLESTEROL 200-239 170-199 TRIGLYCERIDE 150-199 --- HDL 40-59 --- LDL 100-159 110-129 HIGH RISK: CHOLESTEROL >=240 >=200 TRIGLYCERIDE >=200 --- HDL <40 --- LDL >=160 >=130 * Baljeet Doran MD - 05/26/2016 3:42 PM CST Message mild arthritis in the shoulder and neck, consider a steroid injection in the shoulder if he desires Verified Results XR SHOULDER 2+ VIEW RT ( Routine ) 26May2016 08:51AM Baljeet Doran Test Name Result Flag Reference XR SHOULDER 2+ VIEW LT (Report) RAFFAELE VALENZUELA SRAVANI ADMIT/SERVICE DATE: 05/26/16 ACCT: [id number] DISCHARGE DATE: : 1980 SEX: M ORD SITE: [facility] PT TYPE: REG CLI ORDERING MD: BALJEET DORAN MD STUDY DATE REPORT # ORDER # EXT ORDER ID 05/26/16 [id number] PROC CODE: [id number] PROCEDURE DESCRIPTION: XR SHOULDER 2 OR MORE VIEWS RT IMPRESSION: THERE IS MILD ARTHRITIS RIGHT SHOULDER EXAMINATION: 3 OR MORE VIEWS RIGHT SHOULDER EXAM DATE/TIME: 05/26/2016 8:07 AM CLINICAL HISTORY: NO INJURY, RIGHT SHOULDER PAIN COMPARISON: NONE TECHNIQUE: AP, AP POSTERIOR OBLIQUE VIEWS WERE OBTAINED WITH INTERNAL AND EXTERNAL ROTATION OF THE HUMERUS AND TRANSSCAPULAR Y VIEW AXILLARY VIEW WAS ALSO OBTAINED. FINDINGS: THERE IS MILD DEGENERATIVE SPURRING AT THE ACROMIOCLAVICULAR JOINT. THERE IS MILD SPURRING OF THE GLENOID. THERE IS NO FRACTURE. THERE IS NO DISLOCATION. ELECTRONICALLY SIGNED BY: BAN PYLE05/26/2016 8:51 AM XR C-SPINE 2-3V 26May2016 08:43AM Baljeet Doran Test Name Result Flag Reference XR C-SPINE 2-3V (Report) RAFFAELE VALENZUELA ADMIT/SERVICE DATE: 05/26/16 ACCT: [id number] DISCHARGE DATE: : 1980 SEX: M ORD SITE: [facility] PT TYPE: REG CLI ORDERING MD: BALJEET DORAN MD STUDY DATE REPORT # ORDER # EXT ORDER ID 05/26/16 [id number] PROC CODE: [id number] PROCEDURE DESCRIPTION: XR CERVICAL SPINE 3 VWS OR LSS IMPRESSION: MINIMAL ARTHRITIS CERVICAL SPINE. EXAMINATION: CERVICAL SPINE X-RAYS EXAM DATE/TIME: 05/26/2016 8:07 AM CLINICAL HISTORY: NECK PAIN. PAINFUL RANGE OF MOTION. SYMPTOMS FOR 2 YEARS. RIGHT SHOULDER PAIN. COMPARISON: CT SCAN CERVICAL SPINE 01/12/2013. TECHNIQUE: LATERAL, SWIMMER'S LATERAL, OPEN-MOUTH, AND AP VIEWS. FINDINGS: NO COMPRESSION FRACTURE. MINIMAL ARTHRITIS. PREVERTEBRAL SOFT TISSUES ARE NORMAL. ELECTRONICALLY SIGNED BY: ALIZE DE JESUS05/26/2016 8:44 AM documented in this encounter Plan of Treatment Not on file documented as of this encounter Visit Diagnoses Not on filedocumented in this encounter Care Teams Silk Screen Printer Machine Relationship Specialty Start Date End Date Baljeet Doran MD [address] [place] [address] PCP - General 11/24/16 Baljeet Doran MD [address] [place], [place] [id number] PCP - General 07/26/16 11/23/16 Baljeet Doran MD [address] [place] [address] PCP - General 06/01/16 07/25/16 Baljeet Doran MD [address] [place], [place] [id number] PCP - General 05/26/16 05/31/16 documented as of this encounter
--- OUTSIDE RECORDS SUMMARY | 2024-07-20 15:38 | XMS_ITS | Encounter Summary ---
Author Organization [facility] Address [facility] [place] [address] [place] [address] Care Team Providers Care Container Repairer Name Role Phone Baljeet Doran MD Primary Care Provider Encounter Details Date Type Department Care Team (Late st Contact Info) Description 11/24/2016 Abstract [facility] [address] [place] [address] Baljeet Doran MD [address] [facility] [address] [place], [place] [address] Social History Tobacco Use Types Packs/Day Years Used Date Smoking Tobacco: Never Assessed Sex and Gender Information Value Date Recorded Sex Assigned at Not on file Legal Sex Male 12:41 AM CDT Gender Identity Not on file Sexual Orientation Not on file documented as of this encounter Plan of Treatment Not on file documented as of this encounter Visit Diagnoses Diagnosis Dorsalgia Pain in thoracic spine documented in this encounter Care Teams Container Repairer Relationship Specialty Start Date End Date Baljeet Doran MD [address] [place], [place] [address] PCP - General 11/24/16 documented as of this encounter
--- OUTSIDE RECORDS SUMMARY | 2024-07-20 15:38 | XMS_ITS | Encounter Summary ---
Author Organization [facility] Address [address] [facility] [place] [address] [place] [address] Care Team Providers Care College Teacher Name Role Phone Baljeet Doran MD [...] Conversion Primary Care Provider Unavailable Md Generic Maury RICE Primary Care Provider Unavailable Md Generic Maury RICE Primary Care Provider Unavailable Md Generic Conversion Primary Care Provider Unavailable Md Generic Conversion Primary Care Provider Unavailable Md Generic Conversion Primary Care Provider Unavailable Md Generic Conversion Primary Care Provider Unavailable Encounter Details Date Type Department Care Team (Late st Contact Info) Description 03/12/2001 Abstract [facility] [address] [place] [address] Oneida Rice MD Social History [...] on filedocumented in this encounter Care Teams College Teacher Relationship Specialty Start Date End Date Baljeet Doran MD [address] [place] [address] PCP - General 11/24/16 Baljeet Doran MD [address] [place] [address] PCP - General 07/26/16 11/23/16 Baljeet Doran MD [address] [place] [address] PCP - General 06/01/16 07/25/16 Baljeet Doran MD [address] [place], [place] [address] PCP - General 05/26/16 05/31/16 Md Generic [...]
--- OUTSIDE RECORDS SUMMARY | 2024-07-20 15:38 | XMS_ITS | Encounter Summary ---
Author Organization [facility] Address [address] [facility] [place] [address] [place] [address] Care Team Providers Care Car Wrecker Name Role Phone Baljeet Doran MD Primary [...] Care Team (Late st Contact Info) Description 09/15/2007 Abstract [facility] [address] [place] [address] Oneida Rice MD Social History [...] on filedocumented in this encounter Care Teams Car Wrecker Relationship Specialty Start Date End Date Baljeet Doran MD [address] [place] [address] PCP - General 11/24/16 Baljeet Doran MD [address] [place] [address] PCP - General 07/26/16 11/23/16 Baljeet Doran MD [address] [place] [address] PCP - General 06/01/16 07/25/16 Baljeet Doran MD [address] [place], [place] [address] PCP - General 05/26/16 05/31/16 Md Generic [...]
--- OUTSIDE RECORDS SUMMARY | 2024-07-20 15:38 | XMS_ITS | Encounter Summary ---
Author Organization [facility] Address [address] [facility] [address] [place] [address] Care Team Providers Care Vaccine Customer Representative Name Role Phone Baljeet Doran MD Primary [...] Care Team (Late st Contact Info) Description 02/18/2002 Abstract [facility] [address] [place] [address] Oneida Rice MD Social History [...] on filedocumented in this encounter Care Teams Vaccine Customer Representative Relationship Specialty Start Date End Date Baljeet Doran MD [address] [place] [address] PCP - General 11/24/16 Baljeet Doran MD [address] [place] [address] PCP - General 07/26/16 11/23/16 Baljeet Doran MD [address] [place] [address] PCP - General 06/01/16 07/25/16 Baljeet Doran MD [address] [place], [place] [address] PCP - General 05/26/16 05/31/16 Md Generic [...]
--- OUTSIDE RECORDS SUMMARY | 2024-07-20 15:38 | XMS_ITS | Encounter Summary ---
Author Organization [facility] Address [facility] [place] [address] [place] [address] Care Team Providers Care Brick Setter Name Role Phone Baljeet Doran MD Primary [...] Care Team (Late st Contact Info) Description 02/21/2011 Abstract [facility] [place] [address] Md Generic MD Maury Social History Tobacco Use Types Packs/Day Years Used Date Smoking Tobacco: Never Assessed Sex and Gender Information Value Date Recorded Sex Assigned at Not on file Legal Sex Male 12:41 AM CDT Gender Identity Not on file Sexual Orientation Not on file documented as of this encounter Plan of Treatment Not on file documented as of this encounter Visit Diagnoses Diagnosis Poisoning by aromatic analgesics, not elsewhere classified(965.4) Poisoning by aromatic analgesics, not elsewhere classified documented in this encounter Care Teams Brick Setter Relationship Specialty Start Date End Date Baljeet Doran MD [address] [place] [address] PCP - General 11/24/16 Baljeet Doran MD [address] [place] [address] PCP - General 07/26/16 11/23/16 Baljeet Doran MD [address] [place], [place] [address] PCP - General 06/01/16 07/25/16 Baljeet Doran MD [address] [place] [address] PCP - General 05/26/16 05/31/16 , Generic Conversion, PCP - General 01/12/13 , Generic Conversion, PCP - General 11/29/12 , Generic Conversion, PCP - General 11/28/12 , Generic Conversion, PCP - General 01/09/12 , Generic Conversion, PCP - General 01/08/12 , Generic Conversion, PCP - General 04/23/11 , Generic Conversion, PCP - General 02/22/11 Md, Generic Conversion, PCP - General 02/21/11 1 documented as of this encounter
--- OUTSIDE RECORDS SUMMARY | 2024-07-20 15:38 | XMS_ITS | Encounter Summary ---
Author Organization [facility] Address [facility] [facility] [place] [address] [place] [address] Care Team Providers Care Direct Marketing Representative Name Role Phone Baljeet Doran MD Primary Care Provider Baljeet Doran MD Primary Care Provider Baljeet Doran MD Primary Care Provider Encounter Details Date Type Department Care Team (Latest Contact Info) Description 06/22/2016 Abstract [facility] , Oneida Mendiola MD Social History Tobacco Use Types Packs/Day Years Used Date Smoking Tobacco: Never Assessed Sex and Gender Information Value Date Recorded Sex Assigned at Not on file Legal Sex Male 12:41 AM CDT Gender Identity Not on file Sexual Orientation Not on file documented as of this encounter Progress Notes * Generic Conversion MD Joe - 06/22/2016 9:28 AM CST Message Recorded as Task Date: 06/05/2016 04:30 PM, Created By: Baljeet Doran Task Name: Call Patient with results Assigned To: [facility] - NURSES Regarding Patient: Raffaele Valenzuela, Status: In Progress Comment: Baljeet Doran - 05 Jun 2016 4:30 PM Patient no mass or torsion, but if it is still bothersome he may have a referral to urology Amy Phillips - 06 Jun 2016 8:04 AM TASK REASSIGNED: Previously Assigned To Baljeet Doran Julie - 06 Jun 2016 11:31 AM TASK IN PROGRESS Message: Finally able to make contact with pt. Reviewed US results with pt. He is noticing a pulling sensation in his scrotum, can still feel the lump . Pt would like to see urologist. Advised if he hasn't heard from urology by 07-02-16, to call and speak with TICO Craven to check on referral status. Pt states the [phone] number listed for him doesn't receive service all the time and that is probably why we haven't been able to contact him. Requested we call him on [phone] from now on, and the [phone] as an alternate number. Pt verbalized understanding of all and in agreement with plan. depRN Signatures Electronically signed by : Kajal Baum R.N.; Jun 22 2016 9:34AM DIE STAMPING PRESS OPERATOR (Author) documented in this encounter Plan of Treatment Not on file documented as of this encounter Visit Diagnoses Not on filedocumented in this encounter Care Teams Direct Marketing Representative Relationship Specialty Start Date End Date Baljeet Doran MD [address] [place], [place] [address] PCP - General 11/24/16 Baljeet Doran MD [address] [place], [place] [address] PCP - General 07/26/16 11/23/16 Baljeet Doran MD [address] [place], [place] [id number] PCP - General 06/01/16 07/25/16 documented as of this encounter
--- OUTSIDE RECORDS SUMMARY | 2024-07-20 15:38 | XMS_ITS | Encounter Summary ---
Author Organization [facility] Address [address] [facility] [place] [address] [place] [address] Care Team Providers Care Zoo Director Name Role Phone Baljeet Doran MD [...] Care Team (Late st Contact Info) Description 03/02/2009 Abstract [facility] [address] [place], [place] [address] Peri Granado MD [address] [place] [id number] Social History Tobacco Use Types Packs/Day Years [...] on filedocumented in this encounter Care Teams Zoo Director Relationship Specialty Start Date End Date Baljeet Doran MD [address] [place] [address] PCP - General 11/24/16 Baljeet Doran MD [address] [place], [place] [address] PCP - General 07/26/16 11/23/16 Baljeet Doran MD [address] [place], [place] [address] PCP - General 06/01/16 07/25/16 Baljeet Doran MD [address] [place], [place] [phone] PCP - General 05/26/16 05/31/16 Md Generic [...] Generic Conversion, PCP - General 02/20/11 1 Md, Generic Conversion, PCP - General 01/22/11 1 , Generic Conversion, PCP - General 01/21/11 1 Md Generic Conversion, PCP - General 07/17/10 1 documented as of this encounter
--- OUTSIDE RECORDS SUMMARY | 2024-07-20 15:38 | XMS_ITS | Encounter Summary ---
Author Organization [facility] Address Replaced by [facility] [place] [address] [place] [address] Care Team Providers Care Teacher Private Name Role Phone Baljeet Doran MD Primary Care Provider Baljeet Doran MD Primary Care Provider Baljeet Doran MD Primary Care Provider Encounter Details Date Type Department Care Team (Late st Contact Info) Description 06/01/2016 Abstract [facility] Family Medicine - [place] [address] [place] [address] Baljeet Doran MD [address] [place], [place] [id number] Social History Tobacco Use Types Packs/Day Years Used Date Smoking Tobacco: Never Assessed Sex and Gender Information Value Date Recorded Sex Assigned at Not on file Legal Sex Male 12:41 AM CDT Gender Identity Not on file Sexual Orientation Not on file documented as of this encounter Last Filed Vital Signs Vital Sign Reading Time Taken Comments Blood Pressure 112/60 06/01/2016 9:48 AM RUBBER ATTACHER Pulse 72 06/01/2016 9:48 AM RUBBER ATTACHER Temperature - - Respiratory Rate - - Oxygen Saturation - - Inhaled Oxygen Concentration - - Weight 92.1 kg (203 lb) 06/01/2016 9:48 AM RUBBER ATTACHER Height - - Body Mass Index 29.13 05/25/2016 8:15 AM RUBBER ATTACHER documented in this encounter Procedure Notes * Baljeet Doran MD - 06/01/2016 9:30 AM CST Chief Complaint STEROID RIGHT SHOULDER INJECTION Current Meds 1. Naproxen 500 MG Oral Tablet; TAKE 1 TABLET EVERY 12 HOURS NEEDED; Therapy: 25May2016 to (Evaluate:08Jun2016) Requested for: 25May2016; Last Rx:25May2016 Ordered Allergies 1. No Known Drug Allergies Vitals Recorded: 01Jun2016 09:48AM Temperature 98.7 F Heart Rate 72 Respiration 16 Systolic 112 Diastolic 60 O2 Saturation 98 Weight 203 lb BMI Calculated 29.13 BSA Calculated 2.1 Procedure Procedure: Injection of the shoulder injection joint on the right Indication: inflammation, joint pain, osteoarthritis and diagnostic. Risk, benefits, alternatives, bleeding risk and infection risk were discussed with the patient. Verbal consent was obtained prior to the procedure. Written consent was obtained prior to the procedureand is detailed in the patient's record. Prior to the start of the procedure a time out was taken and the identity of the patient was confirmed via name and date of with the patient. The correct site and the procedure to be performed were confirmed and the site marked as appropriate. The correct side was confirmed if applicable. The positioning of the patient was verified. The availability of the correct equipment was verified. Preparation: betadine was used to prep the area. Procedure Note: Using sterile technique, the aspiration/injection needle was then directed from a lateral aspect. A 25-gauge and 1.5 inch was used to inject 1 mL 0.5% Bupivacaine, 1 mL of 2% Lidocaine and 2 mL of 40mg/mL triamcinolone. A bandage was applied. Post-Procedure: the patient tolerated the procedure well. Complications: None. Patient instructed to avoid strenuous activity for 1 day(s). Follow-up in the office as needed. Assessment 1. Right shoulder pain (719.41) (M25.511) Plan Right shoulder pain ?? Naproxen 500 MG Oral Tablet; TAKE 1 TABLET EVERY 12 HOURS NEEDED Rx By: Baljeet Doran; Dispense: 14 Days ; #:28 Tablet; Refill: 0; For: Right shoulder pain; ANTONIETTA = N; Verified Transmission to [facility]; Last Updated By: Kamille Willson; 06/01/2016 9:52:04 AM Discussion/Summary Right shoulder pain: Steroid injection performed as above, if helpful he may repeat after 3 months if needed. Signatures Electronically signed by : Baljeet Doran M.D.; Jun 01 2016 10:17AM RUBBER ATTACHER (Author) documented in this encounter Plan of Treatment Not on file documented as of this encounter Visit Diagnoses Not on filedocumented in this encounter Care Teams Teacher Private Relationship Specialty Start Date End Date Baljeet Doran MD [address] [place], [place] [address] PCP - General 11/24/16 Baljeet Doran MD [address] [place] [address] PCP - General 07/26/16 11/23/16 Baljeet Doran MD [address] [place] [address] PCP - General 06/01/16 07/25/16 documented as of this encounter
--- OUTSIDE RECORDS SUMMARY | 2024-07-20 15:38 | XMS_ITS | Encounter Summary ---
Author Organization [facility] Address [address] [place] [address] [place] [address] Care Team Providers Care Vending Machine Refiller Name Role Phone Baljeet Doran MD Primary [...] Care Team (Late st Contact Info) Description 06/25/2007 Abstract [facility] [address] [facility] [address] [place], [place] [address] Larry Maldonado MD [address] [place] [address] Social History Tobacco Use Types Packs/Day Years [...] on filedocumented in this encounter Care Teams Vending Machine Refiller Relationship Specialty Start Date End Date Baljeet Doran MD [address] [place] [address] PCP - General 11/24/16 Baljeet Doran MD [address] [place], [place] [address] PCP - General 07/26/16 11/23/16 Baljeet Doran MD [address] [place], [place] [address] PCP - General 06/01/16 07/25/16 Baljeet Doran MD [address] [place], [place] [address] PCP - General 05/26/16 05/31/16 Md Generic Conversion, PCP - General 01/12/13 Md Generic Conversion, PCP - General 11/29/12 , Generic Conversion, PCP - General 11/28/12 , Generic Conversion, PCP - General 01/09/12 , Generic Conversion, PCP - General 01/08/12 Md Generic Conversion, PCP - General 04/23/11 Md Generic Conversion, PCP - General 02/22/11 Md Generic Conversion, PCP - General 02/21/11 1 Md Generic Conversion, PCP - General 02/20/11 1 , Generic Conversion, PCP - General 01/22/11 1 , Generic Conversion, PCP - General 01/21/11 1 Md Generic Conversion, PCP - General 07/17/10 1 documented as of this encounter
--- OUTSIDE RECORDS SUMMARY | 2024-07-20 15:38 | XMS_ITS | Encounter Summary ---
Author Organization [facility] Address [facility] [place] [address] [place] [address] Care Team Providers Care Upper Cutter Machine Name Role Phone Baljeet Doran MD [...] Care Team (Late st Contact Info) Description 01/08/2012 Emergency [facility] Emergency Room [address] [place], [place] [id number] Barb Waggoner L, DO [address] [place] [address] Social History Tobacco Use Types Packs/Day Years Used Date Smoking Tobacco: Never Assessed Sex and Gender Information Value Date Recorded Sex Assigned at Not on file Legal Sex Male 12:41 AM CDT Gender Identity Not on file Sexual Orientation Not on file documented as of this encounter Plan of Treatment Not on file documented as of this encounter Visit Diagnoses Diagnosis Procedure not carried out because of patient's decision documented in this encounter Care Teams Upper Cutter Machine Relationship Specialty Start Date End Date Andreea, Baljeet Vern, MD [address] [place] [address] PCP - General 11/24/16 Baljeet Doran MD [address] [place] [address] PCP - General 07/26/16 11/23/16 Baljeet Doran MD [address] [place], [place] [address] PCP - General 06/01/16 07/25/16 Baljeet Doran MD [address] [place], [place] [address] PCP - General 05/26/16 05/31/16 Md Generic Conversion, PCP - General 01/12/13 Md Generic Conversion, PCP - General 11/29/12 Md Generic Conversion, PCP - General 11/28/12 Md Generic Conversion, PCP - General 01/09/12 Md Generic Conversion, PCP - General 01/08/12 documented as of this encounter
--- OUTSIDE RECORDS SUMMARY | 2024-07-20 15:38 | XMS_ITS | Encounter Summary ---
Author Organization [facility] Address [address] [place] [address] [place] [address] Care Team Providers Care Lower School Spanish Teacher Name Role Phone Baljeet Doran MD Primary Care Provider Baljeet Doran MD Primary Care Provider Baljeet Doran MD Primary Care Provider Baljeet Doran MD Primary Care Provider Encounter Details Date Type Department Care Team (Latest Contact Info) Description 05/30/2016 Abstract [facility] Social History Tobacco Use [...] on filedocumented in this encounter Care Teams Lower School Spanish Teacher Relationship Specialty Start Date End Date Baljeet Doran MD [address] [place], [place] [phone] PCP - General 11/24/16 Baljeet Doran MD [address] [place], [place] [address] PCP - General 07/26/16 11/23/16 Baljeet Doran MD [address] [id number] PCP - General 06/01/16 07/25/16 Baljeet Doran MD [address] [phone] PCP - General 05/26/16 05/31/16 documented as of this encounter
--- OUTSIDE RECORDS SUMMARY | 2024-07-20 15:38 | XMS_ITS | Encounter Summary ---
Author Organization [facility] Address [facility] [place] [address] [place] [address] Care Team Providers Care Stone Carver Name Role Phone Baljeet Doran MD Primary [...] Care Team (Late st Contact Info) Description 02/22/2011 [place] [address] Peri Granado MD [address] [place] [id number] Social History Tobacco Use Types Packs/Day Years Used Date Smoking Tobacco: Never Assessed Sex and Gender Information Value Date Recorded Sex Assigned at Not on file Legal Sex Male 12:41 AM CDT Gender Identity Not on file Sexual Orientation Not on file documented as of this encounter Plan of Treatment Not on file documented as of this encounter Visit Diagnoses Diagnosis Opioid type dependence, abuse (CMS/HCC [facility]) Opioid type dependence, unspecified documented in this encounter Care Teams Stone Carver Relationship Specialty Start Date End Date Baljeet Doran MD [address] [place] [address] PCP - General 11/24/16 Baljeet Doran MD [address] [place] [address] PCP - General 07/26/16 11/23/16 Baljeet Doran MD [address] [place], [place] [address] PCP - General 06/01/16 07/25/16 Baljeet Doran MD [address] [place], [place] [address] PCP - General 05/26/16 05/31/16 Md Generic Conversion, PCP - General 01/12/13 , Generic Conversion, PCP - General 11/29/12 Md, Generic Conversion, PCP - General 11/28/12 , Generic Conversion, PCP - General 01/09/12 , Generic Conversion, PCP - General 01/08/12 , Generic Conversion, PCP - General 04/23/11 Md, Generic Conversion, PCP - General 02/22/11 documented as of this encounter
--- OUTSIDE RECORDS SUMMARY | 2024-07-20 15:38 | XMS_ITS | Encounter Summary ---
Author Organization [facility] Address [address] [facility] [address] [place] [address] Care Team Providers Care Electrical Discharge Machine Operator Name Role Phone Baljeet Doran MD Primary Care Provider Baljeet Doran MD Primary Care Provider Encounter Details Date Type Department Care Team (Latest Contact Info) Description 08/26/2016 Abstract [facility] Medical Group Baljeet Doran MD [address] [place] [address] Social History Tobacco Use Types Packs/Day [...] on filedocumented in this encounter Care Teams Electrical Discharge Machine Operator Relationship Specialty Start Date End Date Baljeet Doran MD [address] [place], [place] [phone] PCP - General 11/24/16 Baljeet Doran MD [address] [place], [place] [phone] PCP - General 07/26/16 11/23/16 documented as of this encounter
--- OUTSIDE RECORDS SUMMARY | 2024-07-20 15:38 | XMS_ITS | Encounter Summary ---
Author Organization [facility] Address [facility] [place], [place] [id number] [place] [address] Care Team Providers Care Ground Equipment Mechanic Name Role Phone Baljeet Doran MD Primary [...] Care Team (Late st Contact Info) Description 04/23/[address] [facility] [address] [place] [address] Oneida Rice MD Social History [...] as of this encounter Visit Diagnoses Diagnosis Impacted cerumen documented in this encounter Care Teams Ground Equipment Mechanic Relationship Specialty Start Date End Date Baljeet Doran MD [address] [facility] [address] [place] [address] PCP - General 11/24/16 Baljeet Doran MD [address] [place] [address] PCP - General 07/26/16 11/23/16 Baljeet Doran MD [address] [place] [address] PCP - General 06/01/16 07/25/16 Baljeet Doran MD [address] [place] [address] PCP - General 05/26/16 05/31/16 Md, Generic Conversion, PCP - General 01/12/13 Md, Generic Conversion, MD PCP - General 11/29/12 Md, Generic Conversion, MD PCP - General 11/28/12 , Generic Conversion, PCP - General 01/09/12 Md, Generic Conversion, MD PCP - General 01/08/12 Md, Generic Conversion, MD PCP - General 04/23/11 documented as of this encounter
--- OUTSIDE RECORDS SUMMARY | 2024-07-20 15:38 | XMS_ITS | Encounter Summary ---
Author Organization [facility] Address [facility] [place] [address] [place] [address] Care Team Providers Care Spray Painter Helper Name Role Phone Baljeet Doran MD Primary Care Provider Baljeet Doran MD Primary Care Provider Baljeet Doran MD Primary Care Provider Baljeet Doran MD Primary Care Provider Oneida Diaz MD Primary Care Provider Unavailable Encounter Details Date Type Department Care Team (Late st Contact Info) Description 05/25/2016 Abstract [facility] Medical [facility] Family Medicine - [place] [address] [facility] [place] [phone] Baljeet Doran MD [address] [place] [phone] Social History Tobacco Use Types Packs/Day Years Used Date Smoking Tobacco: Never Assessed Sex and Gender Information Value Date Recorded Sex Assigned at Not on file Legal Sex Male 12:41 AM CDT Gender Identity Not on file Sexual Orientation Not on file documented as of this encounter Last Filed Vital Signs Vital Sign Reading Time Taken Comments Blood Pressure 126/70 05/25/2016 8:15 AM BRANCH LEAD Pulse 77 05/25/2016 8:15 AM BRANCH LEAD Temperature - - Respiratory Rate - - Oxygen Saturation - - Inhaled Oxygen Concentration - - Weight 92.1 kg (203 lb) 05/25/2016 8:15 AM BRANCH LEAD Height 177.8 cm (5' 10 ) 05/25/2016 8:15 AM BRANCH LEAD Body Mass Index 29.13 05/25/2016 8:15 AM BRANCH LEAD documented in this encounter Progress Notes * Baljeet Doran MD - 05/25/2016 8:15 AM CST Reason For Visit New Patient Visit Chief Complaint establish care History of Present Illness HPI Free Text: He has not yet had an annual physical, no recent fasting labs. He has not had a doctor in some time. He has not yet had a flu shot. He has never had a flu shot before. He has some shoulder pain on the right side. He has an isolated spot between the spine and the shoulder blade. He has seen a chiropractor with no improvement. This is not in pain all the time, only wit certain movements. He also notes that when he rolls the neck or looks down the area tightens up. He has pain leaning up out of bad. he has no radiation of pain or numbness down the right arm. He has tried ibuprofen and tylenol, but typically doesn't do anything. He has no weakness in the right shoulder. Last year he fell in a whole at work and reached out and grabbed a piece of rebar. He felt a twingeon the anterior surface of the right shoulder. As the year progressed he felt it a bit more, now inthe last few months he has some decreased range of motion and he cannot sleep on the right shoulder. He has had to keep the arm down and not above the head due to this pain. 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 Review of Systems Constitutional: negative. Head and Face: negative. Eyes: negative. ENT: negative. Cardiovascular: negative. Respiratory: negative. Gastrointestinal: negative. Genitourinary: negative. Musculoskeletal: negative and back pain. Neurological: negative. Psychiatric: negative. Endocrine: negative. Hematologic and Lymphatic: negative. Surgical History 1. History of Elbow Surgery [...] smoker ?? No drug use ?? No worship beliefs ?? Occasional alcohol use ?? beer on special occasions ?? Occupation ?? [employer] ?? Recreational activities ?? dirt track racing events, baseball games, socializing with family Current Meds 1. No Reported Medications Recorded ANTONIETTA = N; ; Last Updated By: Kamille Willson; 05/25/2016 8:22:23 AM Allergies 1. No Known Drug Allergies Recorded By: Kamille Willson; 05/25/2016 8:22:23 AM Vitals Recorded: 25May2016 08:15AM Temperature 98.3 F Heart Rate 77 Respiration 16 Systolic 126 Diastolic 70 O2 Saturation 99 Height 5 ft 10 in Weight 203 lb BMI Calculated 29.13 BSA Calculated 2.1 Physical Exam Constitutional General appearance: No acute [...] cyanosis. Inspection/palpation of joints, bones, and muscles: Abnormal. trigger point on the right shoulder blade, He has good range of motion and strength of the right shoulder. no pain at the AC or with reaching across the chest. Skin Skin and subcutaneous tissue: Normal without rashes or lesions. Neurologic Cranial nerves: Cranial nerves 2-12 intact. Reflexes: 2+ and symmetric. Sensation: No sensory loss. Psychiatric Orientation to person, place and time: Normal. Mood and affect: Normal. Assessment 1. Right shoulder pain (719.41) (M25.511) 2. Shoulder blade pain (733.90) (M89.8X1) Plan Health Maintenance 1. Basic Metabolic Prof ( BMP ); Status:Active; Requested for:25May2016; Perform:[facility]; Due:[id number];Ordered; For:Health Maintenance; Ordered By:Baljeet Doran; 2. Lipid Profile; Status:Active; Requested for:25May2016; Perform:[facility]; Due:[id number];Ordered; For:Health Maintenance; Ordered By:Baljeet Doran; Right shoulder pain 3. Naproxen 500 MG Oral Tablet; TAKE 1 TABLET EVERY 12 HOURS NEEDED Rx By: Baljeet Doran; Dispense: 14 Days ; #:28 Tablet; Refill: 0; For: Right shoulder pain; ANTONIETTA = N; Sent To: [facility] 361 4. XR SHOULDER 2+ VIEW RT ( Routine ); Status:Active; Requested for:25May2016; Perform:[facility]; Due:[id number];Ordered; For:Right shoulder pain; Ordered By:Baljeet Doran; Shoulder blade pain 5. XR C-SPINE 2-3V; Status:Active; Requested for:25May2016; Perform:[facility]; Due:[id number];Ordered; For:Shoulder blade pain; Ordered By:Baljeet Doran; 6. Follow-up visit in 1 month Outpatient Follow-up Status: Hold For - Scheduling Requested for: 25May2016 Ordered; For: Shoulder blade pain; Ordered By: Baljeet Doran Performed: Due: 08Jun2016 Discussion/Summary Right shoulder pain: no signs of rotator cuff tear, more likely impingement syndrome. Right shoulder blade and back pain: cervical/thoracic films although he has no radiculopathy, he really notes this when he moves his neck. Will consider OMT and trigger point injections. f/u in 4 weeks for an annual physical after fasting labs. Signatures Electronically signed by : Baljeet Doran M.D.; May 25 2016 9:02AM BRANCH LEAD (Author) documented in this encounter Plan of Treatment Not on file documented as of this encounter Procedures Procedure Name Priority Date/Time Associated Diagnosis Comments XR SHOULDER RT MIN 2V Routine 05/26/2016 8:51 AM BRANCH LEAD XR CERV SPINE 3V Routine 05/26/2016 8:43 AM BRANCH LEAD BASIC METABOLIC PANEL Routine 05/26/2016 7:55 AM BRANCH LEAD LIPID PANEL Routine 05/26/2016 7:55 AM BRANCH LEAD documented in this encounter Results * XR SHOULDER RT MIN 2V (05/26/2016 8:51 AM BRANCH LEAD) Anatomical Region Laterality Modality Shoulder Radiographic Ree ging 05/26/2016 8:51 AM BRANCH LEAD 05/26/2016 8:51 AM BRANCH LEAD Narrative 05/26/2016 8:55 AM BRANCH LEAD GI[facility] LEBRON ? ADMIT/SERVICE DATE: 05/26/16 ?? ACCT: [id number] ?DISCHARGE DATE: ?? : 1980 ??SEX: M ?ORD SITE: [facility] ?? PT TYPE: REG CLI ? ORDERING MD: BALJEET DORAN MD ? STUDY DATE ? REPORT # ?ORDER # ? EXT ORDER ID ?? 05/26/16 ?[id number] ? PROC CODE: ? [id number]+VR ? PROCEDURE DESCRIPTION: ?? XR SHOULDER 2 OR MORE VIEWS RT ? IMPRESSION: ?? THERE IS MILD ARTHRITIS RIGHT SHOULDER ? EXAMINATION: 3 OR MORE VIEWS RIGHT SHOULDER ? EXAM DATE/TIME: 05/26/2016 8:07 AM ? CLINICAL HISTORY: NO INJURY, RIGHT SHOULDER PAIN ? COMPARISON: NONE ? TECHNIQUE: AP, AP POSTERIOR OBLIQUE VIEWS WERE OBTAINED WITH INTERNAL ?? AND EXTERNAL ROTATION OF THE HUMERUS AND TRANSSCAPULAR Y VIEW ??AXILLARY ?? VIEW WAS ALSO OBTAINED. ? FINDINGS: THERE IS MILD DEGENERATIVE SPURRING AT THE ACROMIOCLAVICULAR ?? JOINT. THERE IS MILD SPURRING OF THE GLENOID. THERE IS NO FRACTURE. ?? THERE IS NO DISLOCATION. ? ELECTRONICALLY SIGNED BY: BAN PYLE05/26/2016 8:51 AM ? Procedure Note Oneida Diaz MD - 05/09/2018 [facility] ADMIT/SERVICE DATE:05/26/16 ACCT: [id number] DISCHARGE DATE: : 1980 SEX: M [facility] PT TYPE: REG CLI ORDERING MD:BALJEET DORAN MD STUDY DATE REPORT # ORDER # EXT ORDER ID 05/26/16 [id number] PROC CODE: [id number] PROCEDURE DESCRIPTION: XR SHOULDER [...] ELECTRONICALLY SIGNED BY: BAN PYLE05/26/2016 8:51 AM us Baljeet Doran MD GENERAL IMAGING Final R esult * XR CERV SPINE 3V (05/26/2016 8:43 AM BRANCH LEAD) Anatomical Region Laterality Modality Spine Radiographic Ree ging 05/26/2016 8:43 AM BRANCH LEAD 05/26/2016 8:43 AM BRANCH LEAD Narrative 05/26/2016 8:46 AM BRANCH LEAD GIOVANA LEBRON ? ADMIT/SERVICE DATE: 05/26/16 ?? ACCT: [id number] ?DISCHARGE DATE: ?? : 1980 ??SEX: M ?ORD SITE: [facility] ?? PT TYPE: REG CLI ? ORDERING MD: BALJEET DORAN MD ? STUDY DATE ? REPORT # ?ORDER # ? EXT ORDER ID ?? 05/26/16 ? [id number] ?[id number] ? PROC CODE: ? [id number] ? PROCEDURE DESCRIPTION: ?? XR CERVICAL SPINE 3 VWS OR LSS ? IMPRESSION: ?? MINIMAL ARTHRITIS CERVICAL SPINE. ? EXAMINATION: CERVICAL SPINE X-RAYS ? EXAM DATE/TIME: 05/26/2016 8:07 AM ? CLINICAL HISTORY: NECK PAIN. PAINFUL RANGE OF MOTION. SYMPTOMS FOR 2 ?? YEARS. RIGHT SHOULDER PAIN. ? COMPARISON: CT SCAN CERVICAL SPINE 01/12/2013. ? TECHNIQUE: ??LATERAL, SWIMMER'S LATERAL, OPEN-MOUTH, AND AP VIEWS. ? FINDINGS: NO COMPRESSION FRACTURE. MINIMAL ARTHRITIS. PREVERTEBRAL SOFT ?? TISSUES ARE NORMAL. ? ELECTRONICALLY SIGNED BY: ALIZE DE JESUS05/26/2016 8:44 AM ? Procedure Note Oneida Diaz MD - 05/10/2018 GIOVA[facility] LEBRON ADMIT/SERVICE DATE:05/26/16 ACCT: [id number] DISCHARGE DATE: : 1980 SEX: M [facility] PT TYPE: REG CLI ORDERING MD:BALJEET DORAN MD STUDY DATE REPORT # ORDER # EXT ORDER ID 05/26/16 [id number] PROC CODE: [id number] PROCEDURE DESCRIPTION: XR CERVICAL [...] SIGNED BY: ALIZE DE JESUS05/26/2016 8:44 AM us Baljeet Doran MD GENERAL IMAGING Final R esult * (ABNORMAL) LIPID PANEL (05/26/2016 7:55 AM BRANCH LEAD) CHOLESTEROL 203(H) <200 MG/DL [facility] TO EPIC CONVERSION Comment: Result Comment: NOTE: Acetaminophen, N Acetyl p benzoquinone imine (NAPQI), N acetylcysteine (NAC), Metamizole, 4 Aminoantipyrine (4 AAP) and 4 Methylamino antipyrine (4 MAP) at high concentrations can cause falsely low results on Lactate, Uric Acid, Cholesterol, Triglyceride, HDL, and Direct LDL. TRIGLYCERIDES 156(H) <150 MG/DL [facility] TO EPIC CONVERSION HDL 41(L) >59 MG/DL [facility] TO EPIC CONVERSION LDL (CALCULATED) 131(H) <100 MG/DL [facility] TO EPIC CONVERSION NON HDL CHOLESTEROL 162(H) <130 MG/DL [facility] TO EPIC CONVERSION Comment: Result Comment: NOTE: WHEN THE TRIGLYCERIDES ARE >200 mg/dL, NON HDL C IS A SECONDARY TARGET OF THERAPY, WITH A GOAL 30 mg/dL HIGHER THAN THE IDENTIFIED LDL C GOAL. CHOL/HDL RATIO 5.0(H) 0.0 - 4.5 [facility] TO EPIC CONVERSION VLDL CHOLESTEROL (LMP) 31 5 - 55 MG/DL [facility] TO EPIC [...] ? >=160 ?>=130 [facility] TO EPIC CONVERSION 05/26/2016 7:55 AM BRANCH LEAD 05/26/2016 7:55 AM BRANCH LEAD Narrative [facility] TO EPIC CONVERSION - 05/26/2016 4:11 PM BRANCH LEAD 26May2016 4:50PM by Baljeet Doran: ??appt 06/23 impaired fasting glucose, HLP and hypertriglyceridemia. Result Communication: No patient communication needed at this time us Baljeet Doran MD LABORATORY Final R esult [facility] TO EPIC CONVERSION * (ABNORMAL) BASIC METABOLIC PANEL (05/26/2016 7:55 AM BRANCH LEAD) GLUCOSE 102(H) 70 - 99 mg/dL [facility] TO EPIC CONVERSION BUN 13 8 - 23 mg/dL [facility] TO EPIC CONVERSION CREATININE S/P/B 0.85 0.70 - 1.20 mg/dL [facility] TO EPIC CONVERSION SODIUM S/P/B 143 136 - 145 mmol/L [facility] TO EPIC CONVERSION POTASSIUM S/P/B 4.0 3.5 - 5.1 mmol/L [facility] TO EPIC CONVERSION CHLORIDE S/P/B 99 98 - 107 mmol/L [facility] TO EPIC CONVERSION CO2 33(H) 22 - 29 mmol/L [facility] TO EPIC CONVERSION CALCIUM S/P/B 9.7 8.6 - 10.2 mg/dL [facility] TO EPIC CONVERSION ANION GAP 15 8 - 20 [facility] T O EPIC CONVERSION GFR ESTIMATE >60 >60 mL/min/1. 73m'2 [facility] TO EPIC CONVERSION EGFR AFR. AMER. >60 NOTE: eGFR is not calculated for patients <18 years of age. This is an estimated GFR (CKD EPI) and should not be used for calculating drug doses. >60 mL/min/1. 73m'2 [facility] TO EPIC CONVERSION 05/26/2016 7:55 AM BRANCH LEAD 05/26/2016 7:55 AM BRANCH LEAD Narrative [facility] TO EPIC CONVERSION - 05/26/2016 4:11 PM BRANCH LEAD [id number] 4:50PM by Baljeet Doran: ??appt 06/23 impaired fasting glucose, HLP and hypertriglyceridemia. Result Communication: No patient communication needed at this time us Baljeet Doran MD LABORATORY Final R esult [facility] TO EPIC CONVERSION documented in this encounter Visit Diagnoses Not on filedocumented in this encounter Care Teams Spray Painter Helper Relationship Specialty Start Date End Date Baljeet Doran MD [address] [place] [address] PCP - General 11/24/16 Baljeet Doran MD [address] [place], [place] [address] PCP - General 07/26/16 11/23/16 Baljeet Doran MD [address] [place], [place] [phone] PCP - General 06/01/16 07/25/16 Baljeet Doran MD [address] [place], [place] [phone] PCP - General 05/26/16 05/31/16 Oneida Diaz MD PCP - General 01/12/13 documented as of this encounter
--- OUTSIDE RECORDS SUMMARY | 2024-07-20 15:38 | XMS_ITS | Encounter Summary ---
Author Organization [facility] Address [address] [facility] [place] [address] [place] [address] Care Team Providers Care Deli Department Manager Name Role Phone Baljeet Doran MD [...] Care Team (Late st Contact Info) Description [facility]/12/2007 [facility] [address] [facility] [address] [place], [place] [id number] Larry Maldonado MD [address] [phone] Social History Tobacco Use Types Packs/Day [...] on filedocumented in this encounter Care Teams Deli Department Manager Relationship Specialty Start Date End Date Baljeet Doran MD [address] [place] [address] PCP - General 11/24/16 Baljeet Doran MD [address] [place], [place] [address] PCP - General 07/26/16 11/23/16 Baljeet Doran MD [address] [place], [place] [address] PCP - General 06/01/16 07/25/16 Baljeet Doran MD [address] [place], [place] [address] PCP - General 05/26/16 05/31/16 Md Generic [...]
--- OUTSIDE RECORDS SUMMARY | 2024-07-20 15:38 | XMS_ITS | Encounter Summary ---
Author Organization [facility] Address [address] [facility] [place] [address] [place] [address] Care Team Providers Care Granulator Name Role Phone Baljeet Doran MD Primary [...] Care Team (Late st Contact Info) Description 01/22/2011 Abstract [facility] [place] [address] Peri Granado MD [address] [place] [phone] Nikita Ward MD [address] [place] [address] Social History Tobacco Use Types Packs/Day Years Used Date Smoking Tobacco: Never Assessed Sex and Gender Information Value Date Recorded Sex Assigned at Not on file Legal Sex Male 12:41 AM CDT Gender Identity Not on file Sexual Orientation Not on file documented as of this encounter Plan of Treatment Not on file documented as of this encounter Visit Diagnoses Diagnosis Adjustment disorder with depressed mood documented in this encounter Care Teams Granulator Relationship Specialty Start Date End Date Baljeet Doran MD [address] [place] [address] PCP - General 11/24/16 Baljeet Doran MD [address] [place] [address] PCP - General 07/26/16 11/23/16 Baljeet Doran MD [address] [place], [place] [address] PCP - General 06/01/16 07/25/16 Baljeet Doran MD [address] [place], [place] [address] PCP - General 05/26/16 05/31/16 Md Generic [...] Generic Conversion, PCP - General 02/20/11 1 Md Generic Conversion, PCP - General 01/22/11 1 documented as of this encounter
--- OUTSIDE RECORDS SUMMARY | 2024-07-20 15:38 | XMS_ITS | Encounter Summary ---
Author Organization [facility] Address [facility] [place] [address] [place] [address] Care Team Providers Care Clinical Biostatistician Name Role Phone Baljeet Doran MD Primary Care Provider Baljeet Doran MD Primary Care Provider Baljeet Doran MD Primary Care Provider Encounter Details Date Type Department Care Team (Latest Contact Info) Description 06/06/2016 Abstract [facility] Social History Tobacco Use Types Packs/Day Years Used Date Smoking Tobacco: Never Assessed Sex and Gender Information Value Date Recorded Sex Assigned at Not on file Legal Sex Male 12:41 AM CDT Gender Identity Not on file Sexual Orientation Not on file documented as of this encounter Progress Notes * Generic Conversion MD Joe - 06/06/2016 11:31 AM CST Message Recorded as Task Date: 06/05/2016 04:30 PM, Created By: Baljeet Doran Task Name: Call Patient with results Assigned To: [facility] - NURSES Regarding Patient: Raffaele Valenzuela, Status: Active Comment: Baljeet Doran - 05 Jun 2016 4:30 PM Patient no mass or torsion, but if it is still bothersome he may have a referral to urology Amy Phillips - 06 Jun 2016 8:04 AM TASK REASSIGNED: Previously Assigned To Baljeet Doran Message: Called patient to discuss US results. NA, LMOM to ask for Julie. Sandhu Signatures Electronically signed by : Amy Phillips, ; Jun 06 2016 11:31AM SENIOR STAFF CONSULTANT (Author) documented in this encounter Plan of Treatment Not on file documented as of this encounter Visit Diagnoses Not on filedocumented in this encounter Care Teams Clinical Biostatistician Relationship Specialty Start Date End Date Baljeet Doran MD [address] [facility] [address] [place], [place] [address] PCP - General 11/24/16 Baljeet Doran MD [address] [facility] [address] [place], [place] [phone] PCP - General 07/26/16 11/23/16 Baljeet Doran MD [address] [facility] [address] [place], [place] [phone] PCP - General 06/01/16 07/25/16 documented as of this encounter
--- OUTSIDE RECORDS SUMMARY | 2024-07-20 15:38 | XMS_ITS | Encounter Summary ---
Author Organization [facility] Address [facility] [place] [address] [place] [address] Care Team Providers Care Engineering Aide Name Role Phone Baljeet Doran MD Primary Care Provider Encounter Details Date Type Department Care Team (Latest Contact Info) Description 11/25/2016 Abstract [facility] Social History Tobacco Use Types Packs/Day Years Used Date Smoking Tobacco: Never Assessed Sex and Gender Information Value Date Recorded Sex Assigned at Not on file Legal Sex Male 12:41 AM CDT Gender Identity Not on file Sexual Orientation Not on file documented as of this encounter Progress Notes * Generic Conversion MD Joe - 11/25/2016 3:04 PM CDT Message Recorded as Task Date: 11/24/2016 12:18 PM, Created By: Baljeet Doran Task Name: Call Patient with results Assigned To: [facility] - NURSES Regarding Patient: Raffaele Valenzuela, Status: In Progress Comment: Baljeet Doran - 24 Nov 2016 12:18 PM Patient normal X-ray of the back, continue with current medications Amy Phillips - 25 Nov 2016 6:50 AM TASK REASSIGNED: Previously Assigned To Baljeet Doran Dawn - 25 Nov 2016 3:02 PM TASK IN PROGRESS Message: Call placed to pt to discuss Tspine results. No answer. LMOM for pt to call and speak withnursing re results. depRn Signatures Electronically signed by : Kajal Baum R.N.; Nov 25 2016 3:05PM INVENTORY TECHNICIAN (Author) documented in this encounter Plan of Treatment Not on file documented as of this encounter Visit Diagnoses Not on filedocumented in this encounter Care Teams Engineering Aide Relationship Specialty Start Date End Date Baljeet Doran MD [address] [id number] PCP - General 11/24/16 documented as of this encounter
--- OUTSIDE RECORDS SUMMARY | 2024-07-20 15:38 | XMS_ITS | Encounter Summary ---
Author Organization [facility] Address [facility]6 [place] [address] [place] [address] Care Team Providers Care Merchandise Team Manager Name Role Phone Baljeet Doran MD Primary Care Provider Baljeet Doran MD Primary Care Provider Baljeet Doran MD Primary Care Provider Baljeet Doran MD Primary Care Provider Oneida Diaz MD Primary Care Provider Unavailable Encounter Details Date Type Department Care Team (Late st Contact Info) Description 01/12/2013 Abstract [facility] [place] [address] Mayito Narvaez MD Social History Tobacco Use Types Packs/Day [...] this encounter Visit Diagnoses Diagnosis Poisoning by benzodiazepine-based tranquilizers(969.4) Poisoning by benzodiazepine-based tranquilizers documented in this encounter Care Teams Merchandise Team Manager Relationship Specialty Start Date End Date Baljeet Doran MD [address] [facility] [address] [place] [address] PCP - General 11/24/16 Baljeet Doran MD [address] [email or web address] [address] [place], [place] [address] PCP - General 07/26/16 11/23/16 Baljeet Doran MD [address] [facility] [[email or web address] [address] [place], [place] [address] PCP - General 06/01/16 07/25/16 Baljeet Doran MD [address] [facility] [[email or web address] [address] [place], [place] [address] PCP - General 05/26/16 05/31/16 Oneida Diaz MD PCP - General 01/12/13 documented as of this encounter
--- OUTSIDE RECORDS SUMMARY | 2024-07-20 15:38 | XMS_ITS | Encounter Summary ---
Author Organization [facility] Address [facility]6 [facility] [place] [address] [place] [address] Care Team Providers Care Fire Coordinator Name Role Phone Baljeet Doran MD Primary Care Provider Baljeet Doran MD Primary Care Provider Baljeet Doran MD Primary Care Provider Encounter Details Date Type Department Care Team (Late st Contact Info) Description 06/01/2016 Abstract [facility] [address] [place], [place] [phone] Baljeet Doran MD [address] [facility] [place] [place], [place] [phone] Social History Tobacco Use Types Packs/Day Years Used Date Smoking Tobacco: Never Assessed Sex and Gender Information Value Date Recorded Sex Assigned at Not on file Legal Sex Male 12:41 AM CDT Gender Identity Not on file Sexual Orientation Not on file documented as of this encounter Plan of Treatment Not on file documented as of this encounter Visit Diagnoses Diagnosis Disorder of male genital organs Unspecified disorder of male genital organs documented in this encounter Care Teams Fire Coordinator Relationship Specialty Start Date End Date Baljeet Doran MD [address] [place] [place], [place] [phone] PCP - General 11/24/16 Baljeet Doran MD [address] [id number] PCP - General 07/26/16 11/23/16 Baljeet Doran MD [address] [phone] PCP - General 06/01/16 07/25/16 documented as of this encounter
--- OUTSIDE RECORDS SUMMARY | 2024-07-20 15:38 | XMS_ITS | Encounter Summary ---
Author Organization [facility] Address [address] [facility] [place] [address] [place] [address] Care Team Providers Care Tier Over Name Role Phone Baljeet Doran MD Primary Care Provider Baljeet Doran MD Primary Care Provider Encounter Details Date Type Department Care Team (Late st Contact Info) Description 07/26/2016 Abstract [facility] Physical Therapy [address] [place], [place] [phone] Baljeet Doran MD [address] [address] Social History Tobacco Use Types Packs/Day Years Used Date Smoking Tobacco: Never Assessed Sex and Gender Information Value Date Recorded Sex Assigned at Not on file Legal Sex Male 12:41 AM CDT Gender Identity Not on file Sexual Orientation Not on file documented as of this encounter Plan of Treatment Not on file documented as of this encounter Visit Diagnoses Diagnosis Pain in right shoulder Pain in joint, shoulder region documented in this encounter Care Teams Tier Over Relationship Specialty Start Date End Date Baljeet Doran MD [address] [place] [place], [place] [phone] PCP - General 11/24/16 Baljeet Doran MD [address] [address] PCP - General 07/26/16 11/23/16 documented as of this encounter
--- OUTSIDE RECORDS SUMMARY | 2024-07-20 15:38 | XMS_ITS | Encounter Summary ---
Author Organization [facility] Address [address] [facility] [place] [address] [place] [address] Care Team Providers Care Home Appliance Technician Name Role Phone Baljeet Doran MD Primary [...] Care Team (Late st Contact Info) Description 01/21/2011 Emergency [facility] [place] [address] [facility] [place] [address] Social History Tobacco Use Types Packs/Day Years Used Date Smoking Tobacco: Never Assessed Sex and Gender Information Value Date Recorded Sex Assigned at Not on file Legal Sex Male 12:41 AM CDT Gender Identity Not on file Sexual Orientation Not on file documented as of this encounter Plan of Treatment Not on file documented as of this encounter Visit Diagnoses Diagnosis Other depressive disorder documented in this encounter Care Teams Home Appliance Technician Relationship Specialty Start Date End Date Baljeet Doran MD [address] [place] [address] [place] [address] PCP - General 11/24/16 Baljeet Doran MD [address] [place] [address] [place], [place] [address] PCP - General 07/26/16 11/23/16 Baljeet Doran MD [address] [place] [address] [place], [place] [address] PCP - General 06/01/16 07/25/16 Baljeet Doran MD [address] [place] [address] [place], [place] [address] PCP - General 05/26/16 05/31/16 Md Generic Conversion, PCP - General 01/12/13 , Generic Conversion, PCP - General 11/29/12 , Generic Conversion, PCP - General 11/28/12 Md Generic Conversion, PCP - General 01/09/12 , Generic Conversion, PCP - General 01/08/12 , Generic Conversion, PCP - General 04/23/11 , Generic Conversion, PCP - General 02/22/11 , Generic Conversion, PCP - General 02/21/11 1 , Generic Conversion, PCP - General 02/20/11 1 Md, Generic Conversion, MD PCP - General 01/22/11 1 , Generic Conversion, MD PCP - General 01/21/11 1 documented as of this encounter
--- OUTSIDE RECORDS SUMMARY | 2024-07-20 15:38 | XMS_ITS | Encounter Summary ---
Author Organization [facility] Address [facility]6 [facility]. [place], [place] [address] [place] [address] Care Team Providers Care Engine Research Engineer Name Role Phone Baljeet Doran MD Primary Care Provider Baljeet Doran MD Primary Care Provider Baljeet Doran MD Primary Care Provider Baljeet Doran MD Primary Care Provider Md Generic Conversion Primary Care Provider Unavailable Md Generic Conversion Primary Care Provider Unavailable Md Generic Conversion Primary Care Provider Unavailable Encounter Details Date Type Department Care Team (Late st Contact Info) Description 11/28/2012 Emergency [facility] Emergency Room [address] [place], [place] [phone] Sae Bernard N, DO [address] [facility] [address] [place] [address] Social History Tobacco Use Types Packs/Day Years Used Date Smoking Tobacco: Never Assessed Sex and Gender Information Value Date Recorded Sex Assigned at Not on file Legal Sex Male 12:41 AM CDT Gender Identity Not on file Sexual Orientation Not on file documented as of this encounter Plan of Treatment Not on file documented as of this encounter Visit Diagnoses Diagnosis Dehydration documented in this encounter Care Teams Engine Research Engineer Relationship Specialty Start Date End Date Baljeet Doran MD [address] [place] [address] [place] [address] PCP - General 11/24/16 Baljeet Doran MD [address] [place] [address] [place], [place] [address] PCP - General 07/26/16 11/23/16 Baljeet Doran MD [address] [place] [address] [place], [place] [address] PCP - General 06/01/16 07/25/16 Baljeet Doran MD [address] [facility] [address] [place], [place] [address] PCP - General 05/26/16 05/31/16 , Generic Conversion, PCP - General 01/12/13 , Generic Conversion, PCP - General 11/29/12 Md Generic Conversion, PCP - General 11/28/12 documented as of this encounter
--- OUTSIDE RECORDS SUMMARY | 2024-07-20 15:38 | XMS_ITS | Encounter Summary ---
Author Organization [facility] Address [facility] [place] [address] [place] [address] Care Team Providers Care Manager Drive Name Role Phone Baljeet Doran MD Primary Care Provider Baljeet Doran MD Primary Care Provider Baljeet Doran MD Primary Care Provider Encounter Details Date Type Department Care Team (Latest Contact Info) Description 06/05/2016 Abstract [facility] Social History Tobacco Use Types Packs/Day Years Used Date Smoking Tobacco: Never Assessed Sex and Gender Information Value Date Recorded Sex Assigned at Not on file Legal Sex Male 12:41 AM CDT Gender Identity Not on file Sexual Orientation Not on file documented as of this encounter Progress Notes * Baljeet Doran MD - 06/05/2016 4:30 PM CST Message no mass or torsion, but if it is still bothersome he may have a referral to urology Verified Results US SCROTUM/TESTICULAR 01Jun2016 12:03PM Baljeet Doran Test Name Result Flag Reference US SCROTUM/TESTICULAR (Report) RAFFAELE LEBRON ADMIT/SERVICE DATE: 06/01/16 ACCT: [id number] DISCHARGE DATE: : 1980 SEX: M ORD SITE: [facility] [place] OUTPAT[facility] IM[facility]ING PT TYPE: REG CLI ORDERING MD: BALJEET DORAN MD STUDY DATE REPORT # ORDER # EXT ORDER ID 06/01/16 [id number] PROC CODE: SCROT/TEST PROCEDURE DESCRIPTION: US SCROTUM TESTICULAR IMPRESSION: NO TESTICULAR MASS OR TESTICULAR TORSION BILATERALLY. MULTILOCULATED SEPTATED CYSTIC MASS IS SEEN INVOLVING THE LEFT EPIDIDYMIS CORRESPONDING TO THE PALPABLE LUMP. EXAMINATION: TESTICULAR AND SCROTAL ULTRASOUND WITH GRAYSCALE AND COLOR DOPPLER EVALUATION. EXAM DATE/TIME: 06/01/2016 11:06 AM CLINICAL HISTORY: PALPABLE LUMP LEFT SCROTAL REGION FOR THREE YEARS, NO INJURY, INTERMITTENT LEFT SCROTAL PAIN COMPARISON: NONE TECHNIQUE: ULTRASOUND EXAMINATION OF THE RIGHT AND LEFT TESTICLE AND SCROTUM WAS PERFORMED TO ASSESS GRAYSCALE APPEARANCE, AND COLOR DOPPLER FLOW. FINDINGS: RIGHT TESTES: NORMAL IN ECHOGENICITY, MEASURING 5.2 X 2.3 X 3 CM IN DIMENSION. THE COLOR BLOOD FLOW OF THE RIGHT TESTICLE IS NORMAL. NO RIGHT INTRATESTICULAR MASS IS SEEN. RIGHT EPIDIDYMIS: NORMAL IN ECHOGENICITY AND COLOR FLOW, . TINY RIGHT EPIDIDYMAL CYSTS ARE SEEN MEASURING 2 MM IN GREATEST DIMENSION RIGHT SCROTUM: NO RIGHT HYDROCELE. NO RIGHT VARICOCELE IS SEEN. LEFT TESTES: NORMAL IN ECHOGENICITY, MEASURING 4.8 X 2.3 X 3 CM IN DIMENSION. COLOR COLOR BLOOD FLOW OF THE LEFT TESTICLE IS NORMAL. NO LEFT INTRATESTICULAR MASS IS SEEN. LEFT EPIDIDYMIS: NORMAL COLOR BLOOD FLOW IS SEEN IN THE LEFT EPIDIDYMIS. THERE IS A MULTILOCULATED SEPTATED CYSTIC MASS CORRELATING TO THE PALPABLE LUMP MEASURING 3.5 X 2 X 2.7 CM IN GREATEST DIMENSION. LEFT SCROTUM: NO LEFT HYDROCELE. NO LEFT VARICOCELE IS SEEN. ELECTRONICALLY SIGNED BY: BAN PYLE06/01/2016 12:05 PM documented in this encounter Plan of Treatment Not on file documented as of this encounter Visit Diagnoses Not on filedocumented in this encounter Care Teams Manager Drive Relationship Specialty Start Date End Date Baljeet Doran MD [address] [place] [address] PCP - General 11/24/16 Baljeet Doran MD [address] [address] PCP - General 07/26/16 11/23/16 Baljeet Doran MD [address] [address] PCP - General 06/01/16 07/25/16 documented as of this encounter
--- OUTSIDE RECORDS SUMMARY | 2024-07-20 15:38 | XMS_ITS | Encounter Summary ---
Author Organization [facility] Address [facility]6 [facility] [place] [address] [place] [address] Care Team Providers Care Contract Management Specialist Name Role Phone Baljeet Doran MD Primary Care Provider Baljeet Doran MD Primary Care Provider Baljeet Doran MD Primary Care Provider Encounter Details Date Type Department Care Team (Latest Contact Info) Description 06/08/2016 Abstract [facility] Medical Group Social History Tobacco Use Types Packs/Day Years Used Date Smoking Tobacco: Never Assessed Sex and Gender Information Value Date Recorded Sex Assigned at Not on file Legal Sex Male 12:41 AM CDT Gender Identity Not on file Sexual Orientation Not on file documented as of this encounter Progress Notes * Generic Conversion MD Joe - 06/08/2016 10:36 AM CST Message Recorded as Task Date: 06/05/2016 04:30 PM, Created By: Baljeet Doran Task Name: Call Patient with results Assigned To: [facility] - NURSES Regarding Patient: Raffaele [...] 2016 11:31 AM TASK IN PROGRESS Message: Second called patient to discuss US results, NA, LMOM to ask for Julie. Sandhu Signatures Electronically signed by : Amy Phillips, ; Jun 08 2016 10:37AM SALES REPRESENTATIVE SUPERVISOR (Author) documented in this encounter Plan of Treatment Not on file documented as of this encounter Visit Diagnoses Not on filedocumented in this encounter Care Teams Contract Management Specialist Relationship Specialty Start Date End Date Baljeet Doran MD [address] [place] [place] [address] PCP - General 11/24/16 Baljeet Doran MD [address] [place] [address] [place], [place] [address] PCP - General 07/26/16 11/23/16 Baljeet Doran MD [address] [place] [place], [place] [phone] PCP - General 06/01/16 07/25/16 documented as of this encounter
--- OUTSIDE RECORDS SUMMARY | 2024-07-20 15:38 | XMS_ITS | Encounter Summary ---
Author Organization [facility] Address [facility]6 [facility] [place] [address] [place] [address] Care Team Providers Care Office Machines Teacher Name Role Phone Baljeet Doran MD Primary Care Provider Baljeet Doran MD Primary Care Provider Baljeet Doran MD Primary Care Provider Baljeet Doran MD Primary Care Provider Encounter Details Date Type Department Care Team (Late st Contact Info) Description 05/26/2016 Abstract [facility] [address] [place], [place] [phone] Baljeet Doran MD [address] [facility] [address] [place] [address] Social History Tobacco Use Types [...] Associated Diagnosis Comments BASIC METABOLIC PANEL Routine 05/26/2016 7:55 AM YOKE PRESSER LIPID PANEL Routine 05/26/2016 7:55 AM YOKE PRESSER documented in this encounter Results * (ABNORMAL) LIPID PANEL (05/26/2016 7:55 AM YOKE PRESSER) CHOLESTEROL 203(H) <200 MG/DL 05/26/2016 5:11 PM [facility] Comment: NOTE: Acetaminophen, N Acetyl p benzoquinone imine (NAPQI), N acetylcysteine (NAC), Metamizole, 4 Aminoantipyrine (4 AAP) and 4 Methylamino antipyrine (4 MAP) at high concentrations can cause falsely low results on Lactate, Uric Acid, Cholesterol, Triglyceride, HDL, and Direct LDL. TRIGLYCERIDES 156(H) <150 MG/DL 05/26/2016 5:11 PM [facility] HDL 41(L) >59 MG/DL 05/26/2016 5:11 PM [facility] LDL (CALCULATED) 131(H) <100 MG/DL 05/26/2016 5:11 PM [facility] NON HDL CHOLESTEROL 162(H) <130 MG/DL 05/26/2016 5:11 PM [facility] Comment: NOTE: WHEN THE TRIGLYCERIDES ARE >200 mg/dL, NON HDL C IS A SECONDARY TARGET OF THERAPY, WITH A GOAL 30 mg/dL HIGHER THAN THE IDENTIFIED LDL C GOAL. CHOL/HDL RATIO 5.0(H) 0.0 - 4.5 05/26/2016 5:11 PM [facility] VLDL CALCULATION 31 5 - 55 MG/DL 05/26/2016 5:11 PM [facility] LIPID INTERPRETATION 05/26/2016 5:11 PM [facility] Comment: NIH CONCENSUS REPORT RECOMMENDATIONS: ?ADULT ?CHILD ??LOW RISK: ?CHOLESTEROL ? <200 ? <170 ?TRIGLYCERIDE ?<150 ?--- ?HDL ? >=60 ?--- ?LDL ? <100 ? <110 ??BORDERLINE: ?CHOLESTEROL ? 200-239 ?? 170-199 ?TRIGLYCERIDE ?150-199 ? --- ?HDL ?40-59 ?--- ?LDL ? 100-159 ?? 110-129 ??HIGH RISK: ?CHOLESTEROL ? >=240 ?>=200 ?TRIGLYCERIDE ?>=200 ? --- ?HDL ?<40 ?--- ?LDL ? >=160 ?>=130 05/26/2016 7:55 AM YOKE PRESSER 05/26/2016 9:05 AM YOKE PRESSER us Generic Conversion Md [facility] Final R esult [facility] [address] [place] [address], * (ABNORMAL) BASIC METABOLIC PANEL (05/26/2016 7:55 AM YOKE PRESSER) GLUCOSE 102(H) 70 - 99 mg/dL 05/26/2016 5:11 PM YOKE PRESSER [facility] BUN 13 8 - 23 mg/dL 05/26/2016 5:11 PM [facility] CREATININE S/P/B 0.85 0.70 - 1.20 mg/dL 05/26/2016 5:11 PM [facility] SODIUM S/P/B 143 136 - 145 mmol/L 05/26/2016 5:11 PM [facility] POTASSIUM S/P/B 4.0 3.5 - 5.1 mmol/L 05/26/2016 5:11 PM [facility] CHLORIDE S/P/B 99 98 - 107 mmol/L 05/26/2016 5:11 PM [facility] CO2 33(H) 22 - 29 mmol/L 05/26/2016 5:11 PM [facility] CALCIUM S/P/B 9.7 8.6 - 10.2 mg/dL 05/26/2016 5:11 PM [facility] ANION GAP 15 8 - 20 05/26/2016 5:11 PM [facility] EGFR NON-AFR. AMER. >60 >60 mL/min/1.7 3m'2 05/26/2016 5:11 PM [facility] EGFR AFR. AMER. >60 >60 mL/min/1.7 3m'2 05/26/2016 5:11 PM [facility] Comment: NOTE: eGFR is not calculated for patients <18 years of age. This is an estimated GFR (CKD EPI) and should not be used for calculating drug doses. 05/26/2016 7:55 AM YOKE PRESSER 05/26/2016 9:05 AM YOKE PRESSER us Generic Conversion Md [facility] Final R esult [facility] [address] [place] [address], [place] [phone] documented in this encounter Visit Diagnoses Diagnosis Encounter for general adult medical examination without abnormal findings Unspecified general medical examination documented in this encounter Care Teams Office Machines Teacher Relationship Specialty Start Date End Date Baljeet Doran MD [address] [place], [place] [phone] PCP - General 11/24/16 Baljeet Doran MD [address] [place] [place], [place] [address] PCP - General 07/26/16 11/23/16 Baljeet Doran MD [address] [place] [place], [place] [phone] PCP - General 06/01/16 07/25/16 Baljeet Doran MD [address] [place], [place] [phone] PCP - General 05/26/16 05/31/16 documented as of this encounter
--- OUTSIDE RECORDS SUMMARY | 2024-07-20 15:38 | XMS_ITS | Encounter Summary ---
Author Organization [facility] Address [address] [facility] [place] [address] [place] [address] Care Team Providers Care Garbage Collector Driver Name Role Phone Baljeet Doran MD Primary [...] Care Team (Late st Contact Info) Description 12/07/2007 Abstract [facility] [place], [place] [address] Peri Granado MD [address] [place] [id number] Social History Tobacco Use Types Packs/Day [...] on filedocumented in this encounter Care Teams Garbage Collector Driver Relationship Specialty Start Date End Date Baljeet Doran MD [address] [place] [address] PCP - General 11/24/16 Baljeet Doran MD [address] [place], [place] [address] PCP - General 07/26/16 11/23/16 Baljeet Doran MD [address] [place], [place] [address] PCP - General 06/01/16 07/25/16 Baljeet Doran MD [address] [place], [place] [phone] PCP - General 05/26/16 05/31/16 Md Generic [...]
--- OUTSIDE RECORDS SUMMARY | 2024-07-20 15:38 | XMS_ITS | Encounter Summary ---
Author Organization [facility] Address [facility] [place] [address] [place] [address] Care Team Providers Care Director Of Community Center Name Role Phone Baljeet Doran MD Primary Care Provider Baljeet Doran MD Primary Care Provider Baljeet Doran MD Primary Care Provider Encounter Details Date Type Department Care Team (Late st Contact Info) Description 07/05/2016 Abstract [facility] Family Medicine - [place] [address] [place] [address] Baljeet Doran MD [address] [place], [place] [id number] Social History Tobacco Use Types Packs/Day Years Used Date Smoking Tobacco: Never Assessed Sex and Gender Information Value Date Recorded Sex Assigned at Not on file Legal Sex Male 12:41 AM CDT Gender Identity Not on file Sexual Orientation Not on file documented as of this encounter Last Filed Vital Signs Vital Sign Reading Time Taken Comments Blood Pressure 110/60 07/05/2016 11:52 AM MEDICAL ARTIST Pulse 73 07/05/2016 11:52 AM MEDICAL ARTIST Temperature - - Respiratory Rate - - Oxygen Saturation - - Inhaled Oxygen Concentration - - Weight 92.5 kg (204 lb) 07/05/2016 11:52 AM MEDICAL ARTIST Height - - Body Mass Index 29.27 05/25/2016 8:15 AM MEDICAL ARTIST documented in this encounter Progress Notes * Baljeet Doran MD - 07/05/2016 11:30 AM CST Reason For Visit Other: Chief Complaint Injections were done 5 weeks ago. Pt states some relief was obtained but he is having some pain currently and a burning sensation History of Present Illness HPI Free Text: He continues to have some pain in the right shoulder. He has had improvement with the steroid injection on the right shoulder. The deep pain that he had preventing him from sleeping on it has improved. He continues to have just anterior and superior to the shoulder. This is worse with resistance toraising the arm. He also notes pain when trying to push up to get out of bed. There is a burning sensation and feels like there is a type of tear. He feels like he has good strength, but he avoids picking things up due to pain and fear of tearing it further. Review of Systems Constitutional: Normal. ENT: normal. Cardiovascular: Normal. Respiratory: Normal. Gastrointestinal: Normal. Genitourinary: Normal. Integumentary: Normal. Musculoskeletal: joint pain, but Normal. Neurological: Normal. Psychiatric: Normal. Active Problems 1. Right shoulder pain (719.41) (M25.511) 2. Shoulder blade pain (733.90) (M89.8X1) 3. Testicular mass (608.89) (N50.9) Surgical History 1. History of Elbow Surgery [...] smoker ?? No drug use ?? No baptism beliefs ?? Occasional alcohol use ?? beer on special occasions ?? Occupation ?? [employer] ?? Recreational activities ?? dirt track racing events, baseball games, socializing with family Current Meds 1. Naproxen 500 MG Oral Tablet; TAKE 1 TABLET EVERY 12 HOURS NEEDED; Therapy: 25May2016 to (Evaluate:08Jun2016) Requested for: 01Jun2016; Last Rx:25May2016 Ordered 2. No Reported Medications Recorded Allergies 1. No Known Drug Allergies Vitals Recorded: [id number] 11:52AM Temperature 98.2 F Heart Rate 73 Respiration 16 Systolic 110 Diastolic 60 O2 Saturation 98 Weight 204 lb BMI Calculated 29.27 BSA Calculated 2.1 Physical Exam Constitutional General appearance: No acute distress, well appearing and well nourished. Musculoskeletal Gait and station: Normal. Inspection/palpation of joints, bones, and muscles: Normal. normal ROM, normal strength, negative empty can. He has negative apprehension sign on the right. No pain at the AC or with reaching across the chest. Psychiatric Orientation to person, place and time: Normal. Mood and affect: Normal. Results/Data XR SHOULDER 2+ VIEW RT ( Routine ) 26May2016 08:51AM Baljeet Doran Test Name Result Flag Reference XR SHOULDER 2+ VIEW LT (Report) NICOLASRAFFAELE ADMIT/SERVICE DATE: 05/26/16 ACCT: [id number] DISCHARGE DATE: : 1980 SEX: M ORD SITE: [facility] OUTPATNT IMAGING PT TYPE: REG CLI ORDERING MD: BALJEET DORAN MD STUDY DATE REPORT # ORDER # EXT ORDER ID 05/26/16 [id number] PROC CODE: [id number]+VR PROCEDURE DESCRIPTION: XR SHOULDER [...] Flag Reference XR C-SPINE 2-3V (Report) RAFFAELE LEBRON ADMIT/SERVICE DATE: 05/26/16 ACCT: [id number] DISCHARGE DATE: : 1980 SEX: M ORD SITE: [facility] OUTPATNT IMAGING PT TYPE: REG CLI ORDERING MD: BALJEET DORAN MD STUDY DATE REPORT # ORDER # EXT ORDER ID 05/26/16 [id number] PROC CODE: [id number] PROCEDURE DESCRIPTION: XR CERVICAL [...] SIGNED BY: ALIZE DE JESUS05/26/2016 8:44 AM Assessment 1. Right shoulder pain (719.41) (M25.511) Plan Right shoulder pain 1. Physical Therapy Referral Outpatient 36 yo male with right shoulder pain after an injury about February 2015 that has not fully resolved with anti-inflammatories and a steroid injection. He has pretty good strength, but is worried about injuring it further, X-rays have only demonstrated some arthritis. Most pain is with resistance. please eval & treat, thanks. Katiana in [place]. Status: Need Information - Financial Authorization Requested for: [id number] Ordered; For: Right shoulder pain; Ordered By: Baljeet Doran Performed: Due: 19Jul2016 Discussion/Summary Shoulder pain: He has had some improvement after the steroid injection, but no complete resolution after 6 weeks. He has good strength, but has pain with various movements with resistance. Will referon to physical therapy and consider an MRI if no improvement or resolution. He may require a referral to orthopedics. Signatures Electronically signed by : Baljeet Doran M.D.; Jul 05 2016 12:07PM MEDICAL ARTIST (Author) documented in this encounter Plan of Treatment Not on file documented as of this encounter Visit Diagnoses Not on filedocumented in this encounter Care Teams Director Of Community Center Relationship Specialty Start Date End Date Baljeet Doran MD [address] [place], [place] [address] PCP - General 11/24/16 Baljeet Doran MD [address] [facility] [address] [place], [place] [address] PCP - General 07/26/16 11/23/16 Baljeet Doran MD [address] [facility] [address] [place], [place] [address] PCP - General 06/01/16 07/25/16 documented as of this encounter
--- OUTSIDE RECORDS SUMMARY | 2024-07-20 15:38 | XMS_ITS | Encounter Summary ---
Author Organization [facility] Address [facility] [place] [address] [place] [address] Care Team Providers Care Layout Technician Name Role Phone Baljeet Doran MD Primary Care Provider Baljeet Doran MD Primary Care Provider Baljeet Doran MD Primary Care Provider Encounter Details Date Type Department Care Team (Latest Contact Info) Description 06/01/2016 Abstract [facility] Medical Group Blajeet Doran MD [address] [place] [address] Social History Tobacco Use Types [...] Priority Date/Time Associated Diagnosis Comments US TESTICULAR Routine 06/01/2016 12:03 PM RESIDENT ASSOCIATE documented in this encounter Results * US TESTICULAR (06/01/2016 12:03 PM RESIDENT ASSOCIATE) Anatomical Region Laterality Modality Pelvis Ultrasound 06/01/2016 12:0 3 PM RESIDENT ASSOCIATE 06/01/2016 12:03 PM RESIDENT ASSOCIATE Narrative 06/01/2016 12:09 PM RESIDENT ASSOCIATE RAFFAELE VALENZUELA ? ADMIT/SERVICE DATE: 06/01/16 ?? ACCT: [id number] ?DISCHARGE DATE: ?? : 1980 ??SEX: M ?ORD SITE: [facility] [place] [facility]NT IMAG[facility] ?? PT TYPE: REG CLI ? ORDERING MD: ALYSON,BALJEET RICE ? STUDY DATE ? REPORT # ?ORDER # ? EXT ORDER ID ?? 06/01/16 ? [id number] ? [id number] ?[id number] ? PROC CODE: ? SCROT/TEST ? PROCEDURE DESCRIPTION: ?? US SCROTUM TESTICULAR ? IMPRESSION: ?NO TESTICULAR MASS OR TESTICULAR TORSION BILATERALLY. ? MULTILOCULATED SEPTATED CYSTIC MASS IS SEEN INVOLVING THE LEFT ?? EPIDIDYMIS CORRESPONDING TO THE PALPABLE LUMP. ? EXAMINATION: TESTICULAR AND SCROTAL ULTRASOUND WITH GRAYSCALE AND COLOR ?? DOPPLER EVALUATION. ? EXAM DATE/TIME: 06/01/2016 11:06 AM ? CLINICAL HISTORY: PALPABLE LUMP LEFT SCROTAL REGION FOR THREE YEARS, NO ?? INJURY, INTERMITTENT LEFT SCROTAL PAIN ? COMPARISON: NONE ? TECHNIQUE: ULTRASOUND EXAMINATION OF THE RIGHT AND LEFT TESTICLE AND ?? SCROTUM WAS PERFORMED TO ASSESS GRAYSCALE APPEARANCE, AND COLOR DOPPLER ?? FLOW. ? FINDINGS: ?? RIGHT TESTES: NORMAL IN ECHOGENICITY, MEASURING 5.2 X 2.3 X 3 CM IN ?? DIMENSION. THE COLOR BLOOD FLOW ??OF THE RIGHT TESTICLE IS NORMAL. NO ?? RIGHT INTRATESTICULAR MASS IS SEEN. ?? RIGHT EPIDIDYMIS: NORMAL IN ECHOGENICITY AND COLOR FLOW, . TINY RIGHT ?? EPIDIDYMAL CYSTS ARE SEEN MEASURING 2 MM IN GREATEST DIMENSION ?? RIGHT SCROTUM: NO RIGHT HYDROCELE. NO RIGHT VARICOCELE IS SEEN. ? LEFT TESTES: NORMAL IN ECHOGENICITY, MEASURING 4.8 X 2.3 X 3 CM IN ?? DIMENSION. COLOR COLOR BLOOD FLOW OF THE LEFT TESTICLE IS NORMAL. NO ?? LEFT INTRATESTICULAR MASS IS SEEN. ?? LEFT EPIDIDYMIS: NORMAL COLOR BLOOD FLOW IS SEEN IN THE LEFT EPIDIDYMIS. ?? THERE IS A MULTILOCULATED SEPTATED CYSTIC MASS CORRELATING TO THE ?? PALPABLE LUMP MEASURING 3.5 X 2 X 2.7 CM IN GREATEST DIMENSION. ?? LEFT SCROTUM: NO LEFT HYDROCELE. NO LEFT VARICOCELE IS SEEN. ? ELECTRONICALLY SIGNED BY: BAN PYLE06/01/2016 12:05 PM ? Procedure Note Oneida Rice MD - 05/09/2018 RAFFAELE VALENZUELA ADMIT/SERVICE DATE:06/01/16 ACCT: [id number] DISCHARGE DATE: : 1980 SEX: M [facility] PT TYPE: REG CLI ORDERING MD:BALJEET DORAN MD STUDY DATE REPORT # ORDER # EXT ORDER ID 06/01/16 [id number] PROC CODE: SCROT/TEST PROCEDURE DESCRIPTION: US SCROTUM [...] ELECTRONICALLY SIGNED BY: BAN PYLE06/01/2016 12:05 PM Baljeet Doran MD ULTRASOUND Final R esult documented in this encounter Visit Diagnoses Not on filedocumented in this encounter Care Teams Layout Technician Relationship Specialty Start Date End Date Baljeet Doran MD [address] [place], [place] [address] PCP - General 11/24/16 Baljeet Doran MD [address] [place] [address] PCP - General 07/26/16 11/23/16 Baljeet Doran MD [address] [id number] PCP - General 06/01/16 07/25/16 documented as of this encounter
--- OUTSIDE RECORDS SUMMARY | 2024-07-20 15:38 | XMS_ITS | Encounter Summary ---
Author Organization [facility] Address [address] [facility] [place] [address] [place] [address] Care Team Providers Care Communications Analyst Name Role Phone Baljeet Doran MD Primary Care Provider Baljeet Doran MD Primary Care Provider Baljeet Doran MD Primary Care Provider Bajleet Doran MD Primary Care Provider Md Generic [...] Care Team (Late st Contact Info) Description 03/11/2001 [facility] [address] [place] [address] Oneida Rice MD Social History [...] on filedocumented in this encounter Care Teams Communications Analyst Relationship Specialty Start Date End Date Baljeet Doran MD [address] [place] [address] PCP - General 11/24/16 Baljeet Doran MD [address] [place] [address] PCP - General 07/26/16 11/23/16 Baljeet Doran MD [address] [place] [address] PCP - General 06/01/16 07/25/16 Baljeet Doran MD [address] [place], [place] [address] PCP - General 05/26/16 05/31/16 Md Generic [...]
--- OUTSIDE RECORDS SUMMARY | 2024-07-20 15:48 | XMS_ITS | Encounter Summary ---
Author Organization [facility] Address [address] [place] [address] Phone Care Team Providers Care Supervisor Audit Clerks Name Role Phone Vicky Galindo MD Primary Care Provider [phone] Encounter Details Date Type Department Care Team (Late st Contact Info) Description 12/25/2020 Orders Only [facility] Orthopaedic Surgery [address] [facility] Advanced Medicine [address]th [place] [address] [place] [address] Andi Eugene MD [address] [facility] [address] [place], [place] [id number] Closed displaced fracture of acromial end of right clavicle, sequela (Primary Dx) Social History Tobacco Use Types Packs/Day Years Used Date Smoking Tobacco: Never Smokeless Tobacco: Never Sex and Gender Information Value Date Recorded Sex Assigned at Not on file Legal Sex Male 6:06 AM SURGICAL ASST Gender Identity Not on file Sexual Orientation Straight 11/28/2020 9: 06 AM CDT documented as of this encounter Plan of Treatment Not on file documented as of this encounter Visit Diagnoses Diagnosis Closed displaced fracture of acromial end of right clavicle, sequela- Primary documented in this encounter Care Teams Supervisor Audit Clerks Relationship Specialty Start Date End Date Vicky Galindo MD PCP - General 11/16/20 06/02/24 documented as of this encounter
--- OUTSIDE RECORDS SUMMARY | 2024-07-20 15:48 | XMS_ITS | Encounter Summary ---
Author Organization [facility] Healthcare Address [address] [place] [address] Care Team Providers Care Account Director Name Role Phone Bear Cruz MD Primary Care Provider [phone] Reason for Visit * Reason Comments Dental Pain Encounter Details Date Type Department Care Team (Late st Contact Info) Description 06/03/2024 3:56 PM CONTRACT ADMINISTRATION SPECIALIST - 06/03/2024 5:29 PM CONTRACT ADMINISTRATION SPECIALIST Emergency [facility] Emergency Department [address] [place] [address] Pain, dental (Primary Dx) Discharge Disposition: Discharge to home or self care Social History Tobacco Use Types Packs/Day Years Used Date Smoking Tobacco: Never Smokeless Tobacco: Never Personal Safety Answer Date Recorded Have you ever been in or are you currently in a harmful physical or emotional relationship or is someone making you feel afraid or unsafe? Denies 06/03/2024 Sex and Gender Information Value Date Recorded Sex Assigned at Not on file Legal Sex Male 6:06 AM CONTRACT ADMINISTRATION SPECIALIST Gender Identity Not on file Sexual Orientation Straight 11/28/2020 9: 06 AM CDT documented as of this encounter Last Filed Vital Signs Vital Sign Reading Time Taken Comments Blood Pressure 145/100 06/03/2024 5:25 PM CONTRACT ADMINISTRATION SPECIALIST Pulse 84 06/03/2024 5:25 PM CONTRACT ADMINISTRATION SPECIALIST Temperature 36.7 ??C (98 ??F) 06/03/2024 3:42 PM CONTRACT ADMINISTRATION SPECIALIST Respiratory Rate 18 06/03/2024 5:25 PM CONTRACT ADMINISTRATION SPECIALIST Oxygen Saturation 100% 06/03/2024 5:25 PM CONTRACT ADMINISTRATION SPECIALIST Inhaled Oxygen Concentration - - Weight 89 kg (196 lb 3.4 oz) 06/03/2024 3:42 PM CONTRACT ADMINISTRATION SPECIALIST Height 175.3 cm (5' 9 ) 06/03/2024 3:42 PM CONTRACT ADMINISTRATION SPECIALIST Body Mass Index 28.98 06/03/2024 3:42 PM CONTRACT ADMINISTRATION SPECIALIST documented in this encounter Discharge Instructions * Discharge Instructions* Henny Valdez PA - 06/03/2024 5:13 PM CONTRACT ADMINISTRATION SPECIALIST 1) Finish full course of antibiotics even if improving. Ibuprofen per packet instructions for pain relief. Use pain medication for severe/breakthrough pain. Do not drive or operate heavy machinery onmedication. Do not exceed 4g of acetaminophen in a day. 2) follow-up with dentist as soon as possible 3) Return to the emergency room if you develop new or worsening of symptoms especially for facial swelling extending into neck or causing inability to open jaw, fever, trouble swallowing/breathing orother new emergent concern RACT ADMINISTRATION SPECIALIST * Attachments The following attachments cannot be sent through Care Everywhere. * Toothache (AfterCare(R) Instructions(ER/ED)) (Montenegrin) documented in this encounter Medications at Time of Discharge ALPRAZolam (XANAX) 2 mg tablet 09/07/2020 chlorhexidine (PERIDEX) 0.12 % oral rinse Apply 15 mL to the mouth or throat 2 (two) times a day 120 mL 06/03/2024 clindamycin (CLEOCIN) 300 mg capsule TAKE 1 CAPSULE BY MOUTH EVERY 8 HOURS FOR 7 DAYS 08/14/2020 dextroamphetamine -amphetamine (ADDERALL) 7.5 mg tablet Take 7.5 mg by mouth 2 (two) times a day 08/27/2020 HYDROcodone-aceta minophen (NORCO) 5-325 mg per tabletIndications :Pain Take 1 tablet by mouth every 6 (six) hours as needed for pain 6 tablet 06/03/2024 ibuprofen (ADVIL,MOTRIN) 600 mg tablet Take 1 tablet (600 mg total) by mouth every 6 (six) hours as needed for pain 30 tablet 06/03/2024 lidocaine viscous (XYLOCAINE) 2 % solution Apply 10 mL to the mouth or throat 3 (three) times a day as needed (for mouth/dental pain) 120 mL 06/03/2024 sulfamethoxazole- trimethoprim (BACTRIM DS) 800-160 mg per tablet Take 1 tablet by mouth every 12 (twelve) hours 08/08/2020 amoxicillin-clavu lanate (Augmentin) 875-125 mg per tablet Take 1 tablet by mouth 2 (two) times a day for 7 days 14 tablet 06/03/2024 06/10/2024 documented as of this encounter Ordered Prescriptions Prescription Sig Dispense Quantity Refills Last Filled Start Date End Date HYDROcodone-acetam inophen (NORCO) 5-325 mg per tabletIndications: Pain Take 1 tablet by mouth every 6 (six) hours as needed for pain 6 tablet 06/03/2024 lidocaine viscous (XYLOCAINE) 2 % solution Apply 10 mL to the mouth or throat 3 (three) times a day as needed (for mouth/dental pain) 120 mL 06/03/2024 chlorhexidine (PERIDEX) 0.12 % oral rinse Apply 15 mL to the mouth or throat 2 (two) times a day 120 mL 06/03/2024 ibuprofen (ADVIL,MOTRIN) 600 mg tablet Take 1 tablet (600 mg total) by mouth every 6 (six) hours as needed for pain 30 tablet 06/03/2024 amoxicillin-clavul anate (Augmentin) 875-125 mg per tablet Take 1 tablet by mouth 2 (two) times a day for 7 days 14 tablet 06/03/2024 06/10/2024 documented in this encounter Discharge Disposition Disposition Code Departure Means Destination Comment s Discharge to home or self care documented in this encounter ED Notes * Henny Valdez PA - 06/03/2024 4:24 PM CST Images from the original note were not included. ED NOTE Chief Complaint Chief Complaint Patient presents with Dental Pain History of Present Illness The patient is a 44 y.o. male who presents for evaluation of left lower dental pain that started earlier today while eating at [employer]. He said he bit down on a piece of food and immediately felt a sharp zing of pain. He says that he has had similar pain in the past, but that it only lasts a few seconds. He is now having sharp pain more frequently when air runs over the tooth or he runs his tongue over it. He states that the pain radiates through his left jaw and into his ear. Patient has hadtooth extractions in the past and currently wears a partial upper denture. He recalls having a filling placed on this tooth 20+ years ago and feels as though it may have fallen off. No shortness of breath, dyspnea, or any other complaints at this time. Medical History ALLERGIES: No Known Allergies MEDICATIONS: Prior to Admission medications Medication Sig Start Date End Date Taking? Authorizing Provider ALPRAZolam (XANAX) 2 mg tablet 09/07/20 Naheed Billy MD clindamycin (CLEOCIN) 300 mg capsule TAKE 1 CAPSULE BY MOUTH EVERY 8 HOURS FOR 7 DAYS 08/14/20 Naheed Billy MD dextroamphetamine-amphetamine (ADDERALL) 7.5 mg tablet Take 7.5 mg by mouth 2 (two) times a day 08/27/20 Naheed Billy MD HYDROcodone-acetaminophen (NORCO) 5-325 mg per tablet Take 1 tablet by mouth every 6 (six) hours asneeded 10/31/20 Naheed Billy MD naproxen (NAPROSYN) 500 mg tablet Take 500 mg by mouth every 12 (twelve) hours as needed 12/31/19 Naheed Billy MD sulfamethoxazole-trimethoprim (BACTRIM DS) 800-160 mg per tablet Take 1 tablet by mouth every 12 (twelve) hours 08/08/20 Naheed Billy MD PAST MEDICAL HISTORY: No past medical history on file. PAST SURGICAL HISTORY: No past surgical history on file. FAMILY HISTORY: No family history on file. SOCIAL HISTORY: Social History Tobacco Use Smoking status: Never Smokeless tobacco: Never Substance and Sexual Activity Drug use: Not on file Sexual activity: Not on file Alcohol Use: Not on file Review of Systems All systems reviewed and are neg or non contributory for this patients presentation today other than as stated in the HPI . Physical Exam BP 145/100 Pulse 84 Temp 36.7 ??C (98 ??F) (Oral) Resp 18 Ht 175.3 cm (5' 9 ) Wt 89 kg (196 lb 3.4 oz) SpO2 100% BMI 28.98 kg/m?? Physical Exam Vitals and nursing note reviewed. Constitutional: Appearance: Normal appearance. HENT: Right Ear: Tympanic membrane and ear canal normal. Left Ear: Tympanic membrane and ear canal normal. Mouth/Throat: Comments: Filling appears to have broken out. several dental caries throughout mouth. No drainable abscess or areas of fluctuance warranting drainage. No associated oral floor elevation, soft palate swelling, trismus, drooling, neck swelling/facial swelling, tongue or lip swelling, neck induration or meningismus. Speaking in clear full sentences without any significant voice change. Eyes: Conjunctiva/sclera: Conjunctivae normal. Cardiovascular: Rate and Rhythm: Normal rate and regular rhythm. Pulses: Normal pulses. Heart sounds: Normal heart sounds. Pulmonary: Effort: Pulmonary effort is normal. Breath sounds: Normal breath sounds. Musculoskeletal: General: Normal range of motion. Cervical back: Normal range of motion and neck supple. Skin: General: Skin is warm. Capillary Refill: Capillary refill takes less than 2 seconds. Neurological: General: No focal deficit present. Mental Status: He is alert and oriented to person, place, and time. Psychiatric: Mood and Affect: Mood normal. Diagnostic Studies / Procedures LABORATORY STUDIES: Labs Reviewed - No data to display IMAGING STUDIES: No orders to display No results found. Procedures ED Course / Medical Decision Making MDM Number of Diagnoses or Management Options Pain, dental Diagnosis management comments: DDX includes: Dental caries, dental abscess, tooth fracture, avulsion, Esteban's, gingivitis Patient presents with right lower toothache. Appears filling may have came out. We will plan for discharge with antibiotic pain control. Patient has follow up with dentist in 2 days. Strict verbal return precautions reviewed. Patient expresses verbal understanding and agreement with plan. All questions answered to the best of my ability. Nontoxic exit exam. Patient discharged home in stable condition. Medications HYDROcodone-acetaminophen (NORCO) 5-325 mg per tablet 1 tablet (1 tablet oral Given 06/03/241723) ibuprofen (ADVIL,MOTRIN) tablet/capsule 600 mg (600 mg oral Given 06/03/241723) Diagnoses that have been ruled out: None Diagnoses that are still under consideration: None Final diagnoses: Pain, dental Disposition: DISPOSITION: Home Follow-Up: Bear Cruz MD [facility] [address] [address] [place] 06/03/2024 Henny Valdez PA 06/03/241753 Cosigned by Iván Azevedo DO at 06/03/2024 6:11 PM CONTRACT ADMINISTRATION SPECIALIST RACT ADMINISTRATION SPECIALIST RACT ADMINISTRATION SPECIALIST * Stella Horowitz RN - 06/03/2024 3:38 PM CST About 1 hour ago was eating chicken wings and got severe pain left lower tooth RACT ADMINISTRATION SPECIALIST documented in this encounter Plan of Treatment Not on file documented as of this encounter Visit Diagnoses Diagnosis Pain, dental- Primary documented in this encounter Administered Medications Inactive Administered Medications - up to 3 most recent administrations Medication Order MAR Action Action Date Dose Rate Site HYDROcodone-acetaminophen (NORCO) 5-325 mg per tablet 1 tablet 1 tablet, oral, Once, On Mon06/03/24 at 1712, For 1 dose, Indications: PainIndications:Pain Given 06/03/2024 5:24 PM CONTRACT ADMINISTRATION SPECIALIST 1 tablet ibuprofen (ADVIL,MOTRIN) tablet/capsule 600 mg 600 mg, oral, Once, On 06/03/24 at 1712, For 1 dose Given 06/03/2024 5:24 PM CONTRACT ADMINISTRATION SPECIALIST 600 mg documented in this encounter Discontinued Medications Medication Sig Discontinue Reason Start Date End Da te naproxen (NAPROSYN) 500 mg tablet Take 500 mg by mouth every 12 (twelve) hours as needed Therapy completed 12/31/2019 06/03/2024 HYDROcodone-acetaminophe n (NORCO) 5-325 mg per tablet Take 1 tablet by mouth every 6 (six) hours as needed Therapy completed 10/31/2020 06/03/2024 documented as of this encounter Active and Recently Administered Medications Times are shown in CONTRACT ADMINISTRATION SPECIALIST. Scheduled Medication Order 06/01/2024 06/02/2024 06/03/2024 HYDROcodone-acetaminophen (NORCO) 5-325 mg per tablet 1 tablet (COMPLETED) 1 tablet, oral, Once, On 06/03/24 at 1712, For 1 dose, Indications: Pain 1724 (Given - Provid er: Leora Palacio RN) ibuprofen (ADVIL,MOTRIN) tablet/capsule 600 mg (COMPLETED) 600 mg, oral, Once, On 06/03/24 at 1712, For 1 dose 1724 (Given - Provid er: Leora Palacio RN) documented in this encounter Care Teams Account Director Relationship Specialty Start Date End Date Bear Cruz MD [address] [place] [id number] PCP - General Emergency Medicine 06/03/24 documented as of this encounter
--- OUTSIDE RECORDS SUMMARY | 2024-07-20 15:48 | XMS_ITS | Encounter Summary ---
Author Organization [facility] Address [address] [place] [address] Phone Care Team Providers Care Farm Crew Leader Name Role Phone Vicky Galindo MD Primary Care Provider [phone] Reason for Referral * Diagnostic Imaging (Routine) - Closed Specialty Diagnoses / Procedures Referred By Keny t Referred To Contact Diagnoses Closed displaced fracture of acromial end of right clavicle, sequela Procedures XR Clavicle Right Andi Eugene MD [address] [facility] [place] [place] [address] Phone: tel: fax: [address] [address] Referral ID Status Reason Start Date Expiration Date Visits Re quested Visits Authorized [id number] Closed 11/27/2020 12/27/2021 1 1 Encounter Details Date Type Department Care Team (Late st Contact Info) Description 11/27/2020 Orders Only [facility] Orthopaedic Surgery [address] [facility] [address] [place] [address] [place] [address] Andi Eugene MD [address] [facility] [address] [place] [address] Closed displaced fracture of acromial end of right clavicle, sequela (Primary Dx) Social History Tobacco Use Types Packs/Day Years Used Date Smoking Tobacco: Never Smokeless Tobacco: Never Sex and Gender Information Value Date Recorded Sex Assigned at Not on file Legal Sex Male 6:06 AM INSTRUMENTS SALES REPRESENTATIVE Gender Identity Not on file Sexual Orientation Straight 11/28/2020 9: 06 AM CDT documented as of this encounter Plan of Treatment Not on file documented as of this encounter Results * XR Clavicle Right (11/30/2020 8:15 AM CDT) Anatomical Region Laterality Modality Clavicle, Chest Right Computed Radiogr aphy 11/30/2020 8:26 AM CDT Impressions 11/30/2020 8:26 AM CDT Healing comminuted mid to distal right clavicular shaft fracture in unchanged alignment. Electronically signed by: Vishal Rojas M.D. Narrative 11/30/2020 8:26 AM CDT EXAMINATION: Right clavicle complete HISTORY: Right clavicle fracture FINDINGS: 2 views of the right clavicle were performed with comparison made to 11/16/2020. There is a comminuted right mid to distal clavicular fracture in unchanged alignment with apex cranial angulation of the proximal clavicle. Developing callus is noted. There is approximately 1 1/2 and shaft width displacement. No new fracture is identified. Procedure Note Vishal Rojas MD PhD - 11/30/2020 EXAMINATION: Right clavicle complete HISTORY: Right clavicle fracture FINDINGS: 2 views of the right clavicle were performed with comparison made to 11/16/2020. There is a comminuted right mid to distal clavicular fracture in unchanged alignment with apex cranial angulation of the proximal clavicle. Developing callus is noted. There is approximately 1 1/2 and shaft width displacement. No new fracture is identified. IMPRESSION: Healing comminuted mid to distal right clavicular shaft fracture in unchanged alignment. Electronically signed by: Vishal Rojas M.D. Andi Eugene MD IMG XR PROCEDURES Final Result documented in this encounter Visit Diagnoses Diagnosis Closed displaced fracture of acromial end of right clavicle, sequela- Primary Closed displaced fracture of acromial end of right clavicle, sequela documented in this encounter Care Teams Farm Crew Leader Relationship Specialty Start Date End Date Vicky Galindo MD PCP - General 11/16/20 06/02/24 documented as of this encounter
--- OUTSIDE RECORDS SUMMARY | 2024-07-20 15:48 | XMS_ITS | Encounter Summary ---
Author Organization [facility] Address [address] [place] [address] Phone Care Team Providers Care Roll Cleaner Name Role Phone Vicky Galindo MD Primary Care Provider [phone] Reason for Visit * Reason Comments Follow-up Encounter Details Date Type Department Care Team (Late st Contact Info) Description 11/30/2020 8:15 AM CDT Office Visit [facility] Orthopaedic Surgery [address] [facility] [address] [place] [address] Andi Eugene MD [address] [facility] [address] [place] [address] Closed displaced fracture of acromial end of right clavicle, sequela (Primary Dx) Social History Tobacco Use Types Packs/Day Years Used Date Smoking Tobacco: Never Smokeless Tobacco: Never Sex and Gender Information Value Date Recorded Sex Assigned at Not on file Legal Sex Male 6:06 AM ROOM SERVICE CLERK Gender Identity Not on file Sexual Orientation Straight 11/28/2020 9: 06 AM CDT documented as of this encounter Progress Notes * Andi Eugene MD - 11/30/2020 8:15 AM CDT ESTABLISHED PATIENT VISIT INTERIM HISTORY This Is a 40-year-old male who returns today for follow-up of his right distal clavicle fracture. He had a UDS performed on Monday that had no positives. He reports that he has been decreasing his index dose has not completely eliminated it. He is now 4 weeks out from his injury. He has had substantial improvement in his overall pain and function. He has decreased his sling use and has been using his right shoulder. PHYSICAL EXAMINATION No acute distress, alert and oriented X 3. He can forward elevate his right shoulder to 130??. He can externally rotate to 40??. He can internally rotate to the sacrum. He has decreased tenderness to palpation over the distal clavicle. His motor and sensory exam demonstrates intact axillary, median, ulnar, radial, and musculocutaneous nervedistributions. REVIEW OF X-RAYS/STUDIES X-rays of the right shoulder were ordered, obtained, and independently reviewed by me today. These demonstrate stable right distal clavicle fracture with unchanged displacement and interval callus formation. I UDS obtained on Monday is negative for all drugs including benzodiazepines. IMPRESSION/DIAGNOSIS Doing well conservative management for right distal clavicle fracture TREATMENT/PLAN Given his in significant improvement in his symptoms, now time from his injury, and his overall improvement and radiographic appearance, I recommended that we continue with conservative management. He is in agreement with this plan. We are going to initiate physical therapy. He is going to continuehis use of the right upper extremity to less than 5 lb. He will continue sling use at this time. All questions were answered. FOLLOW UP Three weeks with x[facility]ray [facility] Dr Eugene dictating via MModal. Assistant Track And Field Coach variances may occur. documented in this encounter Plan of Treatment Not on file documented as of this encounter Visit Diagnoses Diagnosis Closed displaced fracture of acromial end of right clavicle, sequela- Primary documented in this encounter Care Teams Roll Cleaner Relationship Specialty Start Date End Date Vicky Galindo MD PCP - General 11/16/20 06/02/24 documented as of this encounter
--- OUTSIDE RECORDS SUMMARY | 2024-07-20 15:48 | XMS_ITS | CONTINUITY OF CARE DOCUMENT ---
Author Name eraneran Address Unknown Organization [facility] Address [address] [place] [address] Phone [phone] Care Team Providers Care Spiral Tube Winder Name Role Phone Matt King MD Unavailable [phone] Matt King MD Unavailable [phone] CHRIS HELTON MD Unavailable [phone] INSURANCE PROVIDERS Payer name Policy type / Coverage type Eddie red libertarian ID [facility] MEDICAID (2) Medicaid [id number]
--- OUTSIDE RECORDS SUMMARY | 2024-07-20 15:48 | XMS_ITS | Referral Summary ---
Author Organization [facility] [address] [place] [address] Care Team Providers Care Raker Buffing Wheel Name Role Phone Bear Cruz MD Primary Care Provider [phone] Encounters Date Type Department Care Team Description 06/03/2024 3:56 PM BAND SAW MARKER - 06/03/2024 5:29 PM [facility] Emergency [facility] Emergency Department [address] [place] [address] Pain, dental (Primary Dx) Discharge Disposition: Discharge to home or self care from Last 3 Months Allergies No known active allergies Medications ALPRAZolam (XANAX) 2 mg tablet 09/07/2020 Active dextroamphetami ne-amphetamine (ADDERALL) 7.5 mg tablet Take 7.5 mg by mouth 2 (two) times a day 08/27/2020 Active clindamycin (CLEOCIN) 300 mg capsule TAKE 1 CAPSULE BY MOUTH EVERY 8 HOURS FOR 7 DAYS 08/14/2020 Active sulfamethoxazol e-trimethoprim (BACTRIM DS) 800-160 mg per tablet Take 1 tablet by mouth every 12 (twelve) hours 08/08/2020 Active ibuprofen (ADVIL,MOTRIN) 600 mg tablet Take 1 tablet (600 mg total) by mouth every 6 (six) hours as needed for pain 30 tablet 06/03/2024 Active chlorhexidine (PERIDEX) 0.12 % oral rinse Apply 15 mL to the mouth or throat 2 (two) times a day 120 mL 06/03/2024 Active lidocaine viscous (XYLOCAINE) 2 % solution Apply 10 mL to the mouth or throat 3 (three) times a day as needed (for mouth/dental pain) 120 mL 06/03/2024 Active HYDROcodone-carl taminophen (NORCO) 5-325 mg per tabletIndicatio ns:Pain Take 1 tablet by mouth every 6 (six) hours as needed for pain 6 tablet 06/03/2024 Active Active Problems Problem Noted Date Diagnosed Date 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 Overview (11/06/2020): Added automatically from request for surgery [id number] 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 Social History Tobacco Use Types Packs/Day Years [...] on file Legal Sex Male 6:06 AM BAND SAW MARKER Gender Identity Not on file Sexual Orientation Straight 11/28/2020 9: 06 AM CDT Last Filed Vital Signs Vital Sign Reading Time Taken Comments Blood Pressure 145/100 06/03/2024 5:25 PM BAND SAW MARKER Pulse 84 06/03/2024 5:25 PM BAND SAW MARKER Temperature 36.7 ??C (98 ??F) 06/03/2024 3:42 PM BAND SAW MARKER Respiratory Rate 18 06/03/2024 5:25 PM BAND SAW MARKER Oxygen Saturation 100% 06/03/2024 5:25 PM BAND SAW MARKER Inhaled Oxygen Concentration - - Weight 89 kg (196 lb 3.4 oz) 06/03/2024 3:42 PM BAND SAW MARKER Height 175.3 cm (5' 9 ) 06/03/2024 3:42 PM BAND SAW MARKER Body Mass Index 28.98 06/03/2024 3:42 PM BAND SAW MARKER Plan of Treatment Not on file Procedures Procedure Name Priority Date/Time Associated Diagnosis Comments SERUM HEPATITIS PANEL Routine 02/11/2013 4:11 AM CDT from Last 3 Months or Most Recently Relevant to Health Maintenance Results * Serum Hepatitis panel (02/11/2013 4:11 AM CDT) HBV surface ag Negative NEG HISTO RICAL RESULTS HCV ab Negative NEG HISTORICAL RESULTS Comment: Interpretive Data If confirmation is required, call Laboratory Customer Service to request sample to be sent to [facility] for Hepatitis C Virus (HCV) RNA Detection and Quantitation by Real-Time Reverse Hospital Orderly-PCR (RT-PCR). Current interpretive data was last revised on 2011 HBV core ab, IgM Negative NEG HIS TORICAL RESULTS Comment: Interpretive Data If test is reported as Equivocal, new sample should be drawn for testing. Current interpretive data was last revised on 2008. HAV ab, IgM Negative NEG HISTORIC AL RESULTS Comment: Interpretive Data If test is reported as Equivocal, new sample should be drawn in two weeks for testing. Current interpretive data was last revised on 2008. Serum 02/11/2013 4:11 AM CDT Christy Gutiérrez MD LAB BLOOD ORDERABLES Final Result HISTORICAL RESULTS from Last 3 Months or Most Recently Relevant to Health Maintenance [facility] Care Teams Raker Buffing Wheel Relationship Specialty Start Date End Date Bear Cruz MD [address] [address] PCP - General Emergency Medicine 06/03/24
--- OUTSIDE RECORDS SUMMARY | 2024-07-20 15:48 | XMS_ITS | Encounter Summary ---
Author Organization [facility] Healthcare Address [address] [place] [address] Care Team Providers Care Rubber Stamp Die Inspector Name Role Phone Vicky Galindo MD Primary Care Provider +- [phone] Reason for Visit * Reason Onset Date Comments No Show 12/29/2020 called patient n o answer Encounter Details Date Type Department Care Team (Late st Contact Info) Description 12/29/2020 Documentation [facility] OP Physical Therapy [address] [place] [id number] Idalmis Padilla PTA No Show (called patient no answer) Social History Tobacco Use Types Packs/Day Years Used Date Smoking Tobacco: Never Smokeless Tobacco: Never Sex and Gender Information Value Date Recorded Sex Assigned at Not on file 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
--- OUTSIDE RECORDS SUMMARY | 2024-07-20 15:48 | XMS_ITS | Encounter Summary ---
Author Organization [facility] Healthcare Address [address] [place] [address] Care Team Providers Care Churn Tender Name Role Phone Vicky Galindo MD Primary Care Provider [phone] Reason for Referral * Diagnostic Imaging (Routine) - Closed Specialty Diagnoses / Procedures Referred By Keny kunz Referred To Contact Diagnoses Closed displaced fracture of acromial end of right clavicle, sequela Procedures XR Clavicle Right Andi Eugene MD [address] [place] [address] Phone: tel: fax: [address] [phone] Referral ID Status Reason Start Date Expiration Date Visits Re quested Visits Authorized [id number] Closed 11/27/2020 12/27/2021 1 1 Reason for Visit * Diagnostic Imaging (Routine) - Closed Specialty Diagnoses / Procedures Referred By Keny kunz Referred To Contact Diagnoses Closed displaced fracture of acromial end of right clavicle, sequela Procedures XR Clavicle Right Andi Eugene MD [address] [place] [address] Phone: tel: fax: [address] [phone] Referral ID Status Reason Start Date Expiration Date Visits Re quested Visits Authorized [id number] Closed 11/27/2020 12/27/2021 1 1 Encounter Details Date Type Department Care Team (Latest Contact Info) Description 11/30/2020 8:11 AM CDT - 11/30/2020 11:59 PM CDT Hospital Encounter [facility] [address] [place] [id number] Andi Eugene MD [address] [facility] [address] [place] [address] Closed displaced fracture of acromial end of right clavicle, sequela Discharge Disposition: Discharge to home or self care Social History Tobacco Use Types Packs/Day Years Used Date Smoking Tobacco: Never Smokeless Tobacco: Never Sex and Gender Information Value Date Recorded Sex Assigned at Not on file 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 CLEANER Gender Identity Not on file Sexual Orientation Straight 11/28/2020 9: 06 AM CDT documented as of this encounter Medications at Time of Discharge ALPRAZolam (XANAX) 2 mg tablet 09/07/2020 clindamycin (CLEOCIN) 300 mg capsule TAKE 1 CAPSULE BY MOUTH EVERY 8 HOURS FOR 7 DAYS 08/14/2020 dextroamphetamine -amphetamine (ADDERALL) 7.5 mg tablet Take 7.5 mg by mouth 2 (two) times a day 08/27/2020 sulfamethoxazole- trimethoprim (BACTRIM DS) 800-160 mg per tablet Take 1 tablet by mouth every 12 (twelve) hours 08/08/2020 HYDROcodone-aceta minophen (NORCO) 5-325 mg per tablet Take 1 tablet by mouth every 6 (six) hours as needed 10/31/2020 06/03/2024 naproxen (NAPROSYN) 500 mg tablet Take 500 mg by mouth every 12 (twelve) hours as needed 12/31/2019 06/03/2024 documented as of this encounter Discharge Disposition Disposition Code Departure Means Destination Discharge to home or self care documented in this encounter Plan of Treatment Not on file documented as of this encounter Procedures Procedure Name Priority Date/Time Associated Diagnosis Comments XR CLAVICLE RIGHT COMPLETE Schedule Routine, Read Routine (OP Routine) 11/30/2020 8:15 AM CDT Closed displaced fracture of acromial end of right clavicle, sequela documented in this encounter Results * XR Clavicle Right [...] sequela documented in this encounter Care Teams Churn Tender Relationship Specialty Start Date End Date Vicky Galindo MD PCP - General 11/16/20 06/02/24 documented as of this encounter
--- OUTSIDE RECORDS SUMMARY | 2024-07-20 15:48 | XMS_ITS | Clinical Summary ---
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 Encounters Date Type Department Care Team Description 06/03/2024 3:56 PM EYE TECHNICIAN - 06/03/2024 5:29 PM EYE TECHNICIAN Emergency [facility] Emergency Department [address] [place] [phone] Pain, dental (Primary Dx) Discharge Disposition: Discharge to home or self care from Last 3 Months Social History Tobacco Use Types Packs/Day Years [...] on file Legal Sex Male 6:06 AM EYE TECHNICIAN Gender Identity Not on file Sexual Orientation Straight 11/28/2020 9: 06 AM CDT Obstetrics History Last Filed Vital Signs Vital Sign Reading Time Taken Comments Blood Pressure 145/100 06/03/2024 5:25 PM EYE TECHNICIAN Pulse 84 06/03/2024 5:25 PM EYE TECHNICIAN Temperature 36.7 ??C (98 ??F) 06/03/2024 3:42 PM EYE TECHNICIAN Respiratory Rate 18 06/03/2024 5:25 PM EYE TECHNICIAN Oxygen Saturation 100% 06/03/2024 5:25 PM EYE TECHNICIAN Inhaled Oxygen Concentration - - Weight 89 kg (196 lb 3.4 oz) 06/03/2024 3:42 PM EYE TECHNICIAN Height 175.3 cm (5' 9 ) 06/03/2024 3:42 PM EYE TECHNICIAN Body Mass Index 28.98 06/03/2024 3:42 PM EYE TECHNICIAN Plan of Treatment Health Maintenance Due Date Last Done Comments Colon Cancer Screening-Colonoscopy 1978 Depression Screening 1980 Hepatitis B Screening 02/15/1996 Regular Well Visit/Exam 18-64 02/15/1996 Influenza Vaccine (#1) 2024 DTaP/Tdap/Td Vaccine (2 - Td or Tdap) 01/12/2025 01/12/2015 Hepatitis C Screening Completed 02/11/2013 HPV Vaccines Aged Out No longer eligi ble based on patient's age to complete this topic Pneumococcal vaccine <65 Aged Out No longer eligible based on patient's age to complete this topic Procedures Procedure Name Priority Date/Time Associated Diagnosis [...] to request sample to be sent to [facility] for Hepatitis C Virus (HCV) RNA Detection and Quantitation by Real-Time Reverse Choir Member-PCR (RT-PCR). Current interpretive data was last revised [...] Most Recently Relevant to Health Maintenance Insurance [facility] Care Teams Electronic Health Records Specialist Relationship Specialty Start Date End Date Bear Cruz MD [address] [place] [phone] PCP - General Emergency Medicine 06/03/24
--- OUTSIDE RECORDS SUMMARY | 2024-07-20 15:48 | XMS_ITS | Encounter Summary ---
Author Organization [facility] Healthcare Address [address] [place] [address] Care Team Providers Care Assembly Leader Name Role Phone Vicky Galindo MD Primary Care Provider [phone] Encounter Details Date Type Department Care Team (Late st Contact Info) Description 12/18/2020 7:43 AM CDT - 12/18/2020 11:59 PM CDT Hospital Encounter [facility] INTERIM Andi Eugene MD [address] [facility] [address] [place] [address] Discharge Disposition: Discharge to home or self care Social History Tobacco Use Types Packs/Day Years Used Date Smoking Tobacco: Never Smokeless Tobacco: Never Sex and Gender Information Value Date Recorded Sex Assigned at Not on file 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
--- OUTSIDE RECORDS SUMMARY | 2024-07-20 15:48 | XMS_ITS | Encounter Summary ---
Author Organization [facility] Healthcare Address [address] [place] [address] Care Team Providers Care Solutions Sales Consultant Name Role Phone Vicky Galindo MD Primary Care Provider +- [phone] Reason for Visit * Reason Onset Date Comments No Show 01/05/2021 Called patient n o answer Encounter Details Date Type Department Care Team (Late st Contact Info) Description 01/05/2021 Documentation [facility] Hand [facility] Shoulder [address] [place] [id number] Idalmis Padilla PTA No Show (Called patient no answer) Social History Tobacco Use Types Packs/Day Years Used Date Smoking Tobacco: Never Smokeless Tobacco: Never Sex and Gender Information Value Date Recorded Sex Assigned at Not on file 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 documented in this encounter Plan of Treatment Not on file documented as of this encounter Visit Diagnoses Not on filedocumented in this encounter Care Teams Solutions Sales Consultant Relationship Specialty Start Date End Date Vicky Galindo MD [phone] (work) PCP - General 11/16/20 06/02/24 documented as of this encounter
--- OUTSIDE RECORDS SUMMARY | 2024-07-20 15:49 | XMS_ITS | Encounter Summary ---
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); Other early complication of trauma; Accidental poisoning by salicylates; Poisoning by benzodiazepine-based tranquilizers; Acute renal failure (HCC); Accidental poisoning by heroin (CMS/HCC) (HCC) Social History Tobacco Use Types Packs/Day Years Used Date Smoking Tobacco: Never Assessed Sex and Gender Information Value Date Recorded Sex Assigned at Not on file 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 Gender Identity Not on file Sexual Orientation Straight 11/28/2020 9: 06 AM CDT documented as of this encounter Last Filed Vital Signs Vital Sign Reading Time Taken Comments Blood Pressure 126/90 02/09/2013 3:52 PM CDT Pulse 85 02/09/2013 3:52 PM CDT Temperature 36.7 ??C (98 ??F) 02/09/2013 3:52 PM CDT Respiratory Rate - - Oxygen Saturation 100% 02/09/2013 3:52 PM CDT Inhaled Oxygen Concentration - - Weight 96.3 kg (212 lb 6 oz) 02/09/2013 3:52 PM CDT Height 172.7 cm (5' 8 ) 02/09/2013 3:52 PM CDT Body Mass Index 32.29 02/09/2013 3:52 PM CDT documented in this encounter Plan of Treatment Not on file documented as of this encounter Procedures Procedure Name Priority Date/Time Associated Diagnosis Comments CREATININE WITH GFR Routine 02/10/2013 7 :34 AM CDT LACTATE Routine 02/10/2013 7:34 AM CDT CBC WITH AUTO DIFFERENTIAL Routine 02/10/2013 7:34 AM CDT TROPONIN I Routine 02/10/2013 7:34 AM CDT CRP (ACUTE PHASE) Routine 02/10/2013 7:3 4 AM CDT CREATINE KINASE (CK), TOTAL Routine 02/10/2013 7:34 AM CDT COMPREHENSIVE METABOLIC PANEL Routine 02/10/2013 7:34 AM CDT TROPONIN I Routine 02/10/2013 1:52 AM CDT TRANSESOPHAGEAL ECHO (EKATERINA) W DOPPLER/CF Routine 02/10/2013 12:00 AM CDT TROPONIN I Routine 02/09/2013 7:04 PM CDT OSMOLALITY, BLOOD Routine 02/09/2013 12: 25 PM CDT MICROBIOLOGY SPECIMEN REPORT (CONVERTED) Routine 02/09/2013 12:14 PM CDT MICROBIOLOGY SPECIMEN REPORT (CONVERTED) Routine 02/09/2013 12:11 PM CDT BLOOD GAS (INCLUDES COOX) Routine 02/09/2013 11:20 AM CDT HEMOGRAM WITH MANUAL DIFFERENTIAL Routine 02/09/2013 11:18 AM CDT LACTATE Routine 02/09/2013 11:18 AM CDT PROTIME-INR Routine 02/09/2013 11:18 AM CDT CREATINE KINASE (CK), TOTAL Routine 02/09/2013 11:18 AM CDT ETHANOL Routine 02/09/2013 11:18 AM CDT ACETAMINOPHEN LEVEL Routine 02/09/2013 1 1:18 AM CDT SALICYLATE LEVEL Routine 02/09/2013 11:1 8 AM CDT COMPREHENSIVE METABOLIC PANEL Routine 02/09/2013 11:18 AM CDT RAPID URINE DRUG SCREEN Routine 02/10/20 13 11:12 AM CDT URINALYSIS AND REFLEX TO MICROSCOPIC AND CULTURE Routine 02/09/2013 11:12 AM CDT XR CHEST 1 VIEW Routine 02/09/2013 11:00 AM CDT CARDIOLOGY REPORT 02/09/2013 12: 00 AM CDT XR CHEST 1 VIEW Routine 02/09/2013 12:[address] HEAD WO CONTRAST Routine 02/09/2013 1 2:00 AM CDT XR HAND LEFT 2 VIEWS Routine 02/09/2013 12:00 AM CDT XR WRIST LEFT 2 VIEWS Routine 02/09/2013 12:00 AM CDT documented in this encounter Results * (ABNORMAL) Creatine kinase (CK), total (02/10/2013 7:34 AM CDT) Creatine Kinase 46286(H) 20 - 200 U/L Comment: 02/10/2013 7:34 AM CDT 02/10/2013 7:39 AM CDT us Oz Posada MD LAB BLOOD ORDERABLES [facility] Performing Organization Address City/[facility] Co de Phone Number [facility] HISTORICAL RESULTS * (ABNORMAL) Creatinine with GFR (02/10/2013 7:34 AM CDT) Creatinine 3.7(H) 0.5 - 1.3 mg/dL Kidney Disease Stage 20 mL/MIN Comment: NOTE; ??The GFR is an estimated value using the creatinine, sex, age, and race of the patient. THE ESTIMATED GFR IS VALIDATED FOR AGES 18-70 YEARS STAGE ?mL/Min ?DESCRIPTION ??1 ?90 mL/min or more ?Normal or elevated GFR ??2 ? 60-89 mL/min ?Mildly decreased GFR ??3 ? 30-59 mL/min ?Moderately decreased GFR ??4 ? 15-29 mL/min ?Severely decreased GFR ??5 ? <15 mL/min ? Kidney failure or on dialysis @ 02/10/2013 7:34 AM CDT 02/10/2013 7:39 AM CDT us Oz Posada MD LAB URINE ORDERABLES Final R [facility] Performing Organization Address [facility] Co de Phone Number [facility] HISTORICAL RESULTS * (ABNORMAL) Troponin I (02/10/2013 7:34 AM CDT) Troponin I 1.040(HH) 0.000 - 0.300 ng/mL Comment: CRITICAL VALUE previously reported. See results in EMR. ? Reference using EDUARDO Chemiluminescence ? [facility] with [facility]: ? Clinical and Laboratory correlation is recommended. ? 02/10/2013 7:34 AM CDT 02/10/2013 7:39 AM CDT Oz Posada MD LAB BLOOD ORDERABLES Final R esult Performing Organization Address [facility] Co de Phone Number [facility] HISTORICAL RESULTS * Lactate (02/10/2013 7:34 AM CDT) Pathologist [facility] [place] L-Lactate 1.1 0.5 - 2.2 mmol/L 02/10/2013 7:34 AM CDT 02/10/2013 7:39 AM CDT Oz Posada MD LAB BLOOD ORDERABLES Final R esult Performing Organization Address [facility] Co de Phone Number [facility] HISTORICAL RESULTS * (ABNORMAL) Comprehensive metabolic panel (02/10/2013 7:34 AM CDT) Pathologist [facility] [place] Sodium 129(L) 135 - 145 mmol/L Potassium 4.6 3.3 - 5.1 mmol/L Chloride 97 96 - 108 mmol/L Carbon Dioxide 22 22 - 32 mmol/L Anion Gap 10 Glucose 101 70 - 110 mg/dL BUN 33(H) 6 - 20 mg/dL Comment:Results reviewed Creatinine 3.7(H) 0.5 - 1.3 mg/dL Comment:Results reviewed Kidney Disease Stage 20 mL/MIN Comment: NOTE; ??The GFR is an estimated value using the creatinine, sex, age, and race of the patient. THE ESTIMATED GFR IS VALIDATED FOR AGES 18-70 YEARS STAGE ?mL/Min ?DESCRIPTION ??1 ?90 mL/min or more ?Normal or elevated GFR ??2 ? 60-89 mL/min ?Mildly decreased GFR ??3 ? 30-59 mL/min ?Moderately decreased GFR ??4 ? 15-29 mL/min ?Severely decreased GFR ??5 ? <15 mL/min ? Kidney failure or on dialysis @ Calcium 1.70(L) 2.15 - 2.55 mmol/L Total Protein 5.1(L) 6.4 - 8.4 g/dL Albumin 2.8(L) 3.5 - 5.2 g/dL Globulin 2.3 2.3 - 3.5 gm/dL Albumin/Globulin Ratio 1.2 1.1 - 1.8 Total Bilirubin 0.8 0.0 - 1.2 mg/dL AST 1455(H) 0 - 38 U/L 02/10/2013 9:04 AM CDT [facility] Comment: ALT 1163(H) 0 - 41 U/L Comment: Alkaline Phosphatase 58 40 - 129 U/L 02/10/2013 7:34 AM CDT 02/10/2013 7:39 AM CDT us Oz Posada MD LAB BLOOD ORDERABLES Final R esult [facility] HISTORICAL RESULTS * (ABNORMAL) CBC with auto differential (02/10/2013 7:34 AM CDT) WBC 19.3(H) 4.6 - 10.2 x10 3/ul RBC 4.66 4.11 - 5.71 x10 6/ul 02/10/2013 7:48 AM CDT [facility] RESULTS Hemoglobin 13.1 13.0 - 17.0 g/dl Hct 37.5(L) 38.2 - 48.5 % 02/10/2013 7:48 AM CDT [facility] RESULTS MCV 80.5 80.0 - 97.0 fl MCH 28.1 27.0 - 31.2 pg 02/10/2013 7:48 AM CDT [facility] RES[facility] MCHC 34.9 31.8 - 35.4 g/dl 02/10/2013 7:48 AM CDT [facility] RESULTS RDW 13.3 11.6 - 14.8 % 02/10/2013 7:48 AM CDT [facility] RESULTS Plt Count 77(L) 124 - 400 x10 3/ul MPV 9.8 7.4 - 10.4 fl Differential Method AUTOMATED DIFF --------- -- Neut % 87.0(H) 37.0 - 85.0 % Immature Gran % 0.3 0.0 - 3.0 % Lymph % 6.2 5.0 - 45.0 % Rusk % 5.3 3.0 - 15.0 % Eos % 1.0 0.0 - 7.0 % Baso % 0.2 0.0 - 2.0 % ABSOLUTE COUNTS ABSOLUTE COUNTS --------- -- Absolute Neuts (auto) 16.8(H) 1.7 - 8.7 x10 3/ul Immature Gran # 0.1 0.0 - 0.3 x10 3/ul Absolute Lymphs (auto) 1.2 0.2 - 4.6 x10 3/ul Absolute Monos (auto) 1.0 0.1 - 1.5 x10 3/ul Absolute Eos (auto) 0.2 0.0 - 0.7 x10 3/ul Absolute Basos (auto) 0.0 0.0 - 0.2 x10 3/ul 02/10/2013 7:34 AM CDT 02/10/2013 7:39 AM CDT Oz Posada MD LAB BLOOD ORDERABLES Final R esult Performing Organization Address [facility] de Phone Number [facility] HISTORICAL RESULTS * (ABNORMAL) CRP (acute phase) (02/10/2013 7:34 AM CDT) C-Reactive Protein 78.2(H) 0.0 - 4.9 mg/L 02/10/2013 7:34 AM CDT 02/10/2013 7:39 AM CDT Oz Posada MD LAB BLOOD ORDERABLES Final R esult Performing Organization Address [facility] Phone Number [facility] HISTORICAL RESULTS * (ABNORMAL) Troponin I (02/10/2013 1:52 AM CDT) Troponin I 1.580(HH) 0.000 - 0.300 ng/mL Comment: CRITICAL VALUE CALLED and REPEATED. ?? at:0314 02/10/13 by:Vitor Goodrich to:HAILY SANTOS RN ?? Reference using EDUARDO Chemiluminescence ? Consistent with [facility]: ? Clinical and Laboratory correlation is recommended. ? 02/10/2013 1:52 AM CDT 02/10/2013 2:08 AM CDT Narrative [facility] HISTORICAL RESULTS - 02/10/2013 3:15 AM CDT Line Draw by RN ?? Oz Posada MD LAB BLOOD ORDERABLES Final R esult Performing Organization Address [facility] Phone Number [facility] HISTORICAL RESULTS * Transesophageal Echo W Doppler/CF (02/10/2013 12:00 AM CDT) Anatomical Region Laterality Modality Ultrasound 02/10/2013 Narrative 02/10/2013 12:53 PM CDT Results viewable in EMR, Cardiovasular [EOD] Procedure Note Provider, Naheed, - 11/30/2020 Results viewable in EMR, Cardiovasular [EOD] us Oz Posada MD CV ECHO PROCEDURES Final Res ult * (ABNORMAL) Troponin I (02/09/2013 7:04 PM CDT) [facility] Troponin I 1.260(HH) 0.000 - 0.300 ng/mL Comment: CRITICAL VALUE CALLED and REPEATED. ?? at:1932 02/09/13 by:Izzy Lee to:EUSEBIO SANTOS RN ?? Reference using EDUARDO Chemiluminescence ? Consistent with [facility]: ? Clinical and Laboratory correlation is recommended. ? 02/09/2013 7:04 PM CDT 02/09/2013 7:06 PM CDT Oz Posada MD LAB BLOOD ORDERABLES Final R esult [facility] HISTORICAL RESULTS * Osmolality, blood (02/09/2013 12:25 PM CDT) [facility] Serum Osmolality 293 270 - 300 mOsm/kg 02/09/2013 12:2 5 PM CDT 02/09/2013 12:28 PM CDT Heidy Grayson MD LAB BLOOD ORDERABLES Final Result [facility] HISTORICAL RESULTS * Microbiology Specimen Report (Converted) (02/09/2013 12:14 PM CDT) 02/09/2013 12:1 4 PM CDT 02/09/2013 12:28 PM CDT Narrative [facility] HISTORICAL RESULTS - 02/09/2013 12:14 PM CDT Microbiology Specimen Report (Converted) SPECIMEN [id number] ?? COLLECTED: 2013-02-09 12:14:00 [id number] ?? REQ#: [id number] REQUESTING DR: Heidy Grayson MD ?? SOURCE: BLOOD ?? SP DESC: COMMENT: MLS DRAWN: 20CC ? ANATOMIC SITE: RT AC ? [place] [id number] 02/09/13 1228 --- PROCEDURE --- ?--- RESULT --- ?? CULTURE BLOOD ADULT (SET OF 2) ??(Final) ??- ??Performed at [facility] ?* NO GROWTH DAY 5 - [facility] ? [address] ? [place] [address] ? Nikita Reese MD Procedure Note 10/06/2018 Microbiology Specimen Report (Converted) SPECIMEN [id number] COLLECTED: 2013-02-09 12:14:00 [id number] REQ#:[id number] REQUESTING DR: Heidy Grayson MD SOURCE: BLOOD SP DESC: COMMENT: MLS DRAWN: 20CC ANATOMIC SITE: [place] [id number] 02/09/13 1228 --- PROCEDURE --- --- RESULT --- CULTURE BLOOD ADULT (SET OF 2) (Final) - Performed at [facility] * NO GROWTH DAY 5 - [facility] [address] [place] [address] Nikita Reese MD Heidy Grayson MD LAB BLOOD ORDERABLES Final Result [facility] HISTORICAL RESULTS * Microbiology Specimen Report (Converted) (02/09/2013 12:11 PM CDT) 02/09/2013 12:1 1 PM CDT 02/09/2013 12:28 PM CDT Narrative [facility] HISTORICAL RESULTS - 02/09/2013 12:11 PM CDT Microbiology Specimen Report (Converted) SPECIMEN [id number] ?? COLLECTED: 2013-02-09 12:11:00 [id number] ?? REQ#: [id number] REQUESTING DR: Heidy Grayson MD ?? SOURCE: BLOOD ?? SP DESC: COMMENT: MLS DRAWN: 20CC ? ANATOMIC SITE: RT AC ? [place] [id number] 02/09/13 1228 --- PROCEDURE --- ?--- RESULT --- ?? CULTURE BLOOD ADULT (SET OF 2) ??(Final) ??- ??Performed at [facility] ?* NO GROWTH DAY 5 - [facility] ? [address] [place] [address] ? [place] [address] ? Nikita Reese MD Procedure Note 10/06/2018 Microbiology Specimen Report (Converted) SPECIMEN [id number] COLLECTED: 2013-02-09 12:11:00 [id number] REQ#:[id number] REQUESTING DR: Heidy Grayson MD SOURCE: BLOOD SP DESC: COMMENT: MLS DRAWN: 20CC ANATOMIC SITE: [place] [id number] 02/09/13 1228 --- PROCEDURE --- --- RESULT --- CULTURE BLOOD ADULT (SET OF 2) (Final) - Performed at [facility] * NO GROWTH DAY 5 - [facility] [address] [place] [address] Nikita Reese MD Heidy Grayson MD LAB BLOOD ORDERABLES Final Result [facility] HISTORICAL RESULTS * (ABNORMAL) Blood gas (includes COOX) (02/09/2013 11:20 AM CDT) Specimen Type ARTERIAL Puncture Site RB Patient Temperature 37 C 02/09 11:38 AM [facility] HISTORICAL RESULTS pH 7.268(LL) 7.350 - 7.450 pCO2 44.4 34.0 - 45.0 mmHg pO2 365.0(H) 92.0 - 100.0 mmHg HCO3 19.6(L) 22.0 - 26.0 mmol/L Total CO2 21.0(L) 26.0 - 28.0 mmol/L Base Excess -6.8(L) -2.0 - 2.0 mmol/L Hemoglobin 14.9 13.5 - 18.0 gm/dL O2 Saturation 98.1 >=95.0 % ABG Carboxyhemoglobin 0.5 <=3.0 % ABG Methemoglobin 0.9 0.4 - 1.5 % ABG O2 Content 21.5 17.6 - 24.3 Vol % A-a O2 Difference 280.5(H) <=10.0 013 11:38 AM [facility] HISTORICAL RESULTS a/A Ratio 0.6(L) >=0.8 O2 Delivery Device NR MASK 2012 11:38 AM CDT [facility] HISTORICAL RESULTS FiO2 100.0 % Portrait Consultant ID [id number] 02/09/2013 11:2 0 AM CDT 02/09/2013 11:30 AM CDT Narrative [facility] HISTORICAL RESULTS - 02/09/2013 11:38 AM CDT Type ARTERIAL LINE Heidy Grayson MD LAB BLOOD ORDERABLES Final Result [facility] HISTORICAL RESULTS * (ABNORMAL) Creatine kinase (CK), total (02/09/2013 11:18 AM CDT) Creatine Kinase 74865(H) 20 - 200 U/L 02/09/2013 11:1 8 AM CDT 02/09/2013 11:20 AM CDT us Heidy Grayson MD LAB BLOOD ORDERABLES Final Result Performing Organization Address [facility] Co de Phone Number [facility] HISTORICAL RESULTS * (ABNORMAL) Hemogram with manual differential (02/09/2013 11:18 AM CDT) WBC 28.3(H) 4.6 - 10.2 x10 3/ul 02/09/2013 11:29 AM CDT [facility] RESULTS RBC 5.24 4.11 - 5.71 x10 6/ul 02/09/2013 11:29 AM CDT [facility]OR[facility] RESULTS Hemoglobin 15.0 13.0 - 17.0 g/dl Hct 43.9 38.2 - 48.5 % MCV 83.8 80.0 - 97.0 fl 02/09/2013 11:29 AM CDT [facility] HISTORICAL RESULTS MCH 28.6 27.0 - 31.2 pg MCHC 34.2 31.8 - 35.4 g/dl RDW 12.8 11.6 - 14.8 % Plt Count 111(L) 124 - 400 x10 3/ul MPV 9.6 7.4 - 10.4 fl Differential Method AUTOMATED DIFF --------- -- Neut % 90.0(H) 37.0 - 85.0 % Immature Gran % 0.5 0.0 - 3.0 % Lymph % 3.3(L) 5.0 - 45.0 % Rusk % 6.1 3.0 - 15.0 % Eos % 0.0 0.0 - 7.0 % Baso % 0.1 0.0 - 2.0 % ABSOLUTE COUNTS ABSOLUTE COUNTS --------- -- Absolute Neuts (auto) 25.5(H) 1.7 - 8.7 x10 3/ul Immature Gran # 0.1 0.0 - 0.3 x10 3/ul Absolute Lymphs (auto) 0.9 0.2 - 4.6 x10 3/ul Absolute Monos (auto) 1.7(H) 0.1 - 1.5 x10 3/ul Absolute Eos (auto) 0.0 0.0 - 0.7 x10 3/ul Absolute Basos (auto) 0.0 0.0 - 0.2 x10 3/ul Platelet Evaluation AGREE AGREE Comment:Slide review of plat elets correlates with instrument count. RBC Morphology NORMAL NORMAL 02/09/2013 11:1 8 AM CDT 02/09/2013 11:20 AM CDT Heidy Grayson MD LAB BLOOD ORDERABLES Final Result Performing Organization Address [facility] Co de Phone Number [facility] HISTORICAL RESULTS * Salicylate level (02/09/2013 11:18 AM CDT) Salicylates < 1 0 - 29 mg/dL 02/09/2013 11:1 8 AM CDT 02/09/2013 11:20 AM CDT Heidy Grayson MD LAB BLOOD ORDERABLES Final Result Performing Organization Address [facility] Co de Phone Number [facility] HISTORICAL RESULTS * (ABNORMAL) Protime-INR (02/09/2013 11:18 AM CDT) PT 17.6(H) 12.2 - 14.8 SECONDS INR 1.40 0.01 - 5.99 Comment: Recommended Therapeutic range for Oral Anticoagulant Therapy No anti-coagulation therapy ? Normal Range: ?0.8-1.4 Anti-coagulation therapy ? Low intensity therapy ?2.0-3.0 ? High intensity therapy ?? 2.5-3.5 Critical Value ? Greater than or equal to 6.0 Patients should be monitored for serious bleeding. ?? 02/09/2013 11:1 8 AM CDT 02/09/2013 11:20 AM CDT us Heidy Grayson MD LAB BLOOD ORDERABLES Final Result Performing Organization Address [facility] de Phone Number [facility] HISTORICAL RESULTS * (ABNORMAL) Lactate (02/09/2013 11:18 AM CDT) L-Lactate 8.2(HH) 0.5 - 2.2 mmol/L Comment: CRITICAL VALUE CALLED and REPEATED. ?? at:1150 02/09/13 by:Sabine Alcantara to:Ana Vyas ?? 02/09/2013 11:1 8 AM CDT 02/09/2013 11:20 AM CDT us Heidy Grayson MD LAB BLOOD ORDERABLES Final Result Performing Organization Address [facility] de Phone Number [facility] HISTORICAL RESULTS * Ethanol (02/09/2013 11:18 AM CDT) Ethyl Alcohol < 10 mg/dL Comment:% = mg/dL x .001 02/09/2013 11:1 8 AM CDT 02/09/2013 11:20 AM CDT Heidy Grayson MD LAB BLOOD ORDERABLES Final Result Performing Organization Address [facility]/ZIP Co de Phone Number [facility] HISTORICAL RESULTS * (ABNORMAL) Comprehensive metabolic panel (02/09/2013 11:18 AM CDT) [facility] Sodium 137 135 - 145 mmol/L Potassium 4.9 3.3 - 5.1 mmol/L Chloride 94(L) 96 - 108 mmol/L Carbon Dioxide 23 22 - 32 mmol/L Anion Gap 20 Glucose 131(H) 70 - 110 mg/dL BUN 15 6 - 20 mg/dL Creatinine 2.1(H) 0.5 - 1.3 mg/dL Kidney Disease Stage 39 mL/MIN Comment: NOTE; ??The GFR is an estimated value using the creatinine, sex, age, and race of the patient. THE ESTIMATED GFR IS VALIDATED FOR AGES 18-70 YEARS STAGE ?mL/Min ?DESCRIPTION ??1 ?90 mL/min or more ?Normal or elevated GFR ??2 ? 60-89 mL/min ?Mildly decreased GFR ??3 ? 30-59 mL/min ?Moderately decreased GFR ??4 ? 15-29 mL/min ?Severely decreased GFR ??5 ? <15 mL/min ? Kidney failure or on dialysis @ Calcium 1.93(L) 2.15 - 2.55 mmol/L Total Protein 7.0 6.4 - 8.4 g/dL Albumin 4.4 3.5 - 5.2 g/dL Globulin 2.6 2.3 - 3.5 gm/dL Albumin/Globulin Ratio 1.7 1.1 - 1.8 Total Bilirubin 0.4 0.0 - 1.2 mg/dL AST 697(H) 0 - 38 U/L ALT 753(H) 0 - 41 U/L Alkaline Phosphatase 77 40 - 129 U/L 02/09/2013 11:1 8 AM CDT 02/09/2013 11:20 AM CDT Heidy Grayson MD LAB BLOOD ORDERABLES Final Result [facility] HISTORICAL RESULTS * Acetaminophen level (02/09/2013 11:18 AM CDT) Acetaminophen < 15.0 10.0 - 30.0 ug/mL Comment: Acetaminophen concentrations greater than 200 ug/mL at four hours after ingestion and greater than 50 ug/mL at 12 hours after ingestion are often associated with toxicity. 02/09/2013 11:1 8 AM CDT 02/09/2013 11:20 AM CDT us Heidy Grayson MD LAB BLOOD ORDERABLES Final Result [facility] HISTORICAL RESULTS * (ABNORMAL) Urinalysis reflex to microscopic and culture (02/09/2013 11:12 AM CDT) Ur Collection Type VOIDED Ur Culture Indicated? C&S NOT INDICATED Urine Color DURGA YELLOW Urine Clarity CLEAR CLEAR Urine Glucose (UA) 500(H) NORMAL mg/dL Urine Bilirubin NEGATIVE NEGATIVE mg/dl Urine Ketones NEGATIVE NEGATIVE mg/dL 02/09/2013 11:32 AM [facility] Ur Specific Hardin 1.020 1.005 - 1.025 02/09/2013 11:32 AM [facility] Urine Blood 1.0(H) NEGATIVE mg/dl Urine pH 5.0 5.0 - 8.0 02/09/2013 11:32 AM [facility] Urine Protein 30(H) NEGATIVE mg/dL 02/09/2013 11:32 AM [facility] Urine Urobilinogen NORMAL NORMAL mg/dL 02/09/2013 11:32 AM [facility] Urine Nitrite NEGATIVE NEGATIVE 02/09/2013 11:32 AM [facility] Ur Leukocyte Esterase NEGATIVE NEGATIVE Gokul/ul 02/09/2013 11:32 AM [facility] Ur Microscopic Review Indicated or Ordered 02/09/2013 11:32 AM [facility] Urine RBC 1 0 - 2 /HPF 02/09/2013 11:32 AM [facility] Urine WBC 3 0 - 2 /HPF 02/09/2013 11:32 AM [facility] Urine Bacteria Few /HPF 02/09/2013 11:32 AM CDT [facility] Urine Yeast (Budding) Mod /HPF 02/09/2013 11:32 AM CDT [facility] Urine Mucus Few /LPF 02/09/2013 11:32 AM T [facility] Ur Squamous Epith Cells Rare /HPF 02/09/2013 11:32 AM T [facility] Hyaline Casts 12 0 - 2 /LPF 02/09/2013 11:1 2 AM CDT 02/09/2013 11:18 AM CDT Narrative [facility] - 02/09/2013 11:32 AM CDT Collected By cs ?? [id number] ?? Heidy Grayson MD LAB MICROBIOLOGY - GE NERAL ORDERABLES Final Result [facility] HISTORICAL RESULTS * (ABNORMAL) Rapid Urine Drug Screen (02/09/2013 11:12 AM CDT) Urine cannabinoid NEGATIVE NEGATIVE 013 11:46 AM [facility] Comment: Cut-off Limit: 50 ng/mL Note: ??Positive results from this drug screen are unconfirmed. ??Unconfirmed screening results should not be used for non-medical purposes. ALTERNATE DRUG SCREEN METHOD IN USE ? DUE TO INSTRUMENT DOWNTIME Urine cocaine POSITIVE(H) NEGATIVE 02/09/2013 11:46 AM [facility] Comment: RESULT CALLED at: 1145 02/09/13 by: [id number] to: ANA VYAS ?? CONFIRMATION on Positive result requested:NO Cutoff limit: ??300 ng/mL Urine opiate POSITIVE(H) NEGATIVE 02/09/2013 11:46 AM [facility] Comment: RESULT CALLED at: 1145 02/09/13 by: [id number] to: ANA VYAS ?? CONFIRMATION on Positive result requested:NO Cutoff Limit: ??300 ng/mL Urine amphetamine NEGATIVE NEGATIVE 013 11:46 AM T [facility] HISTORICAL RESULTS Comment:Cutoff Limit: 1000 n g/mL Urine methamphetamine NEGATIVE NEGATIVE Comment:Cutoff Limit: 1000 n g/mL Urine PCP NEGATIVE NEGATIVE Comment:Cutoff Limit: 25 ng/ mL Urine MDMA (Ecstasy) NEGATIVE NEGATIVE Comment:Cutoff Limit: 500 ng /mL Urine barbiturate NEGATIVE NEGATIVE 013 11:46 AM T [facility] HISTORICAL RESULTS Comment:Cut-off limit: 300 n g/mL Urine benzodiazepine POSITIVE(H) NEGATIVE Comment: RESULT CALLED at: 1146 02/09/13 by: [id number] to: ANA VYAS ?? CONFIRMATION on Positive result requested:NO Cut-off limit: 300 ng/mL Urine methadone NEGATIVE NEGATIVE 3 11:46 AM T [facility] HISTORICAL RESULTS Comment:Cutoff Limit: 300 ng /mL Urine tricyclic antidepressant NEGATIVE NEGATIVE Comment:Cutoff Limit: 1000 n g/mL Urine oxycodone NEGATIVE NEGATIVE 3 11:46 AM [facility] HISTORICAL RESULTS Comment:Cutoff Limit: 100 ng /mL 02/09/2013 11:1 2 AM CDT 02/09/2013 11:18 AM CDT Narrative [facility] HISTORICAL RESULTS - 02/09/2013 11:46 AM CDT Collected By cs ?? [id number] Heidy Grayson MD LAB BLOOD ORDERABLES Final Result [facility] HISTORICAL RESULTS * XR Chest 1 View (02/09/2013 11:00 AM CDT) Anatomical Region Laterality Modality Body, Chest N/A Radiographic Ree ging 02/09/2013 11:0 0 AM CDT Impressions 02/09/2013 11:42 AM CDT ?? No radiographic evidence of an acute cardiopulmonary process. THIS IS AN ELECTRONICALLY VERIFIED REPORT 02/09/2013 11:39 AM: ??Nikolai Castorena M.D. Nikolai Castorena M.D. AT:at 11:39 AM 11:[address] [facility] [EOD] Narrative 02/09/2013 11:42 AM CDT EXAMINATION: ??AP radiograph of the chest. ?? DATE: ??02/09/2013 at 11:28 a.m. COMPARISON: ??09/17/2008 HISTORY: ??Drowsiness and stupor TECHNIQUE: ??Single AP radiograph of the chest was submitted for review. Interpretation provided at: ??[facility] FINDINGS: ?? The cardiac silhouette is within normal limits. ??The trachea is midline. ??The lungs are normally expanded without evidence of consolidation, pneumothorax, or large pleural effusion. ??The osseous structures are unremarkable. Procedure Note Provider, MD Naheed - 11/30/2020 EXAMINATION: AP radiograph of the chest. DATE: 02/09/2013 at 11:28 a.m. COMPARISON: 09/17/2008 HISTORY: Drowsiness and stupor TECHNIQUE: Single AP radiograph of the chest was submitted for review. Interpretation provided at: [facility] FINDINGS: The cardiac silhouette is within normal limits. The trachea is midline.The lungs are normally expanded without evidence of consolidation,pneumothorax, or large pleural effusion. The osseous structures are unremarkable. IMPRESSION: No radiographic evidence of an acute cardiopulmonary process. THIS IS AN ELECTRONICALLY VERIFIED REPORT 02/09/2013 11:39 AM: Nikolai Castorena M.D. Nikolai Castorena M.D. AT:at 11:39 AM 11:[address] [facility] [EOD] us Heidy Grayson MD IMG XR PROCEDURES Fin al Result * CARDIOLOGY REPORT (02/09/2013 12:00 AM CDT) Anatomical Region Laterality Modality Other Narrative 02/09/2013 12:00 AM CDT Ordered by an unspecified provider. Historical Provider [facility] AIYANA LOYA Final Result * XR Hand Left 2 Views (02/09/2013 12:00 AM CDT) Anatomical Region Laterality Modality Upper Extremities, Hand Left Radiogra phic Imaging 02/09/2013 Impressions 02/09/2013 1:01 PM CDT ?? 1. ??No definite evidence of fracture. 2. ??The fingers are held in flexion throughout the examination. ??Correlation with physical examination is recommended to exclude extensor tendon injury. THIS IS AN ELECTRONICALLY VERIFIED REPORT 02/09/2013 12:58 PM: ??Nikolai Castorena M.D. Nikolai Castorena M.D. AT:at 12:58 PM 12:[address] [facility] [EOD] Narrative 02/09/2013 1:01 PM CDT EXAMINATION: ??2 Views of the left hand. DATE: ??02/09/2013 COMPARISON: ??None. HISTORY: ??Pain. TECHNIQUE: ??AP and lateral radiographs of the left hand were obtained. Interpretation provided at: ??[facility] FINDINGS: Evaluation is moderately limited due to the patients second, third, fourth, and fifth fingers being held slightly in flexion. ??Within that limitation, there is no radiographic evidence of fracture. ??No radiopaque foreign bodies are present. Procedure Note Provider, Naheed, - 11/30/2020 EXAMINATION: 2 Views of the left hand. DATE: 02/09/2013 COMPARISON: None. HISTORY: Pain. TECHNIQUE: AP and lateral radiographs of the left hand were obtained. Interpretation provided at: [facility] FINDINGS: Evaluation is moderately limited due to the patients second, third,fourth, and fifth fingers being held slightly in flexion. Within that limitation, there is no radiographic evidence of fracture. No radiopaque foreignbodies are present. IMPRESSION: 1. No definite evidence of fracture. 2. The fingers are held in flexion throughout the examination.Correlation with physical examination is recommended to exclude extensor tendoninjury. THIS IS AN ELECTRONICALLY VERIFIED REPORT 02/09/2013 12:58 PM: Nikolai Castorena M.D. Nikolai Castorena M.D. AT:at 12:58 PM 12:[address] [facility] [EOD] us Heidy Grayson MD IMG XR PROCEDURES Fin al Result * XR Chest 1 View (02/09/2013 12:00 AM CDT) Anatomical Region Laterality Modality Body, Chest N/A Radiographic Ree ging 02/09/2013 Impressions 02/09/2013 3:19 PM CDT ?? 1. ??Interval right central venous catheter placement, with no pneumothorax seen. 2. ??Prominence of the superior mediastinum may be artifactual. ??See text above. THIS IS AN ELECTRONICALLY VERIFIED REPORT 02/09/2013 3:15 PM: ??Roshni Mendez M.D. Roshni Mendez M.D. KL:vito 03:15 PM 03:[address] [facility] [EOD] Narrative 02/09/2013 3:19 PM CDT EXAMINATION: ??Portable Chest Radiograph HISTORY: ??Line placement TECHNIQUE: An AP portable chest radiograph was obtained. COMPARISON: ??Chest radiograph from earlier today. FINDINGS: ?? A right IJ dual lumen central venous catheter has been placed, the tip overlies the superior vena cava. ??No pneumothorax is evident. Lung volumes are low. ??Cardiac silhouette is moderately enlarged, which is likely due to technique. ??Prominence of the superior mediastinum is seen, which may be due to supine technique. ??Recommend a standard two-view chest radiograph when clinically feasible for further evaluation. ??No dense focal consolidation, or pleural effusion is seen. ??Osseous structures appear intact as imaged. Procedure Note Provider, MD Naheed - 11/30/2020 EXAMINATION: Portable Chest Radiograph HISTORY: Line placement TECHNIQUE: An AP portable chest radiograph was obtained. COMPARISON: Chest radiograph from earlier today. FINDINGS: A right IJ dual lumen central venous catheter has been placed, the tip overlies the superior vena cava. No pneumothorax is evident. Lung volumes are low. Cardiac silhouette is moderately enlarged, which is likely due to technique. Prominence of the superior mediastinum is seen, which may be due to supine technique. Recommend a standard two-view chest radiograph when clinically feasible for further evaluation. No densefocal consolidation, or pleural effusion is seen. Osseous structures appearintact as imaged. IMPRESSION: 1. Interval right central venous catheter placement, with no pneumothorax seen. 2. Prominence of the superior mediastinum may be artifactual. See textabove. THIS IS AN ELECTRONICALLY VERIFIED REPORT 02/09/2013 3:15 PM: Roshni Mendez M.D. Roshni Mendez M.D. KL:vito 03:15 PM 03:[address] [facility] [EOD] us Heidy Grayson MD IMG XR PROCEDURES Fin al Result * CT Head WO Contrast (02/09/2013 12:00 AM CDT) Anatomical Region Laterality Modality Head and Neck N/A Computed Tomogra phy 02/09/2013 Impressions 02/09/2013 11:59 AM CDT ?? No evidence of acute intracranial hemorrhage or ischemia. Stable examination. THIS IS AN ELECTRONICALLY VERIFIED REPORT 02/09/2013 11:56 AM: ??Nikolai Castorena M.D. Nikolai Castorena M.D. AT:at 11:56 AM 11:[address] [facility] [EOD] Narrative 02/09/2013 11:59 AM CDT EXAMINATION: CT ??HEAD WITHOUT CONTRAST DATE: ??02/09/2013 COMPARISON: ??08/19/2011 HISTORY: Altered consciousness, overdose TECHNIQUE: 3 mm axial images of the head were acquired without contrast. Interpretation provided at: ??[facility] FINDINGS: ?? There is no evidence of acute intracranial hemorrhage. ??There is no evidence of midline shift or mass effect. ??There are no abnormal intra- or extra- axial fluid collections. ??The garduno white junction remains distinct and there is no evidence of abnormal attenuation in an arterial territory distribution to suggest acute ischemia. ??The ventricles are symmetric and proportional to the sulci.Basal ganglia calcifications are noted. The skull is intact. ??The visualized paranasal sinuses and mastoid air cells are clear.There is redemonstration of a tiny hyperdense focus within the preseptal region overlying the right eye. Procedure Note Provider, MD Naheed - 11/30/2020 EXAMINATION: CT HEAD WITHOUT CONTRAST DATE: 02/09/2013 COMPARISON: 08/19/2011 HISTORY: Altered consciousness, overdose TECHNIQUE: 3 mm axial images of the head were acquired without contrast. Interpretation provided at: [facility] FINDINGS: There is no evidence of acute intracranial hemorrhage. There is noevidence of midline shift or mass effect. There are no abnormal intra- or extra-axial fluid collections. The garduno white junction remains distinct and there isno evidence of abnormal attenuation in an arterial territory distribution to suggest acute ischemia. The ventricles are symmetric and proportional tothe sulci.Basal ganglia calcifications are noted. The skull is intact. The visualized paranasal sinuses and mastoid aircells are clear.There is redemonstration of a tiny hyperdense focus within the preseptal region overlying the right eye. IMPRESSION: No evidence of acute intracranial hemorrhage or ischemia. Stableexamination. THIS IS AN ELECTRONICALLY VERIFIED REPORT 02/09/2013 11:56 AM: Nikolai Castorena M.D. Nikolai Castorena M.D. AT:at 11:56 AM 11:[address] [facility] [EOD] us Heidy Grayson MD IMG CT PROCEDURES Fin al Result * XR Wrist Left 2 Views (02/09/2013 12:00 AM CDT) Anatomical Region Laterality Modality Upper Extremities, Wrist Left Radiogr aphic Imaging 02/09/2013 Impressions 02/09/2013 12:58 PM CDT ?? No evidence of fracture. THIS IS AN ELECTRONICALLY VERIFIED REPORT 02/09/2013 12:56 PM: ??Nikolai Castorena M.D. Nikolai Castorena M.D. AT:at 12:56 PM 12:[address] [facility] [EOD] Narrative 02/09/2013 12:58 PM CDT EXAMINATION: ??2 Views of the left wrist. DATE: ??02/09/2013 COMPARISON: ??None. HISTORY: ??Pain. TECHNIQUE: ??AP and lateral radiographs of the left wrist were obtained. Interpretation provided at: ??[facility] FINDINGS: The osseous structures are intact without evidence of fracture. ??No radiopaque foreign bodies are identified. ??No focal soft tissue swelling is seen. ??No significant degenerative changes are identified. Procedure Note Provider, MD Naheed - 11/30/2020 EXAMINATION: 2 Views of the left wrist. DATE: 02/09/2013 COMPARISON: None. HISTORY: Pain. TECHNIQUE: AP and lateral radiographs of the left wrist were obtained. Interpretation provided at: [facility] FINDINGS: The osseous structures are intact without evidence of fracture. Noradiopaque foreign bodies are identified. No focal soft tissue swelling is seen. No significant degenerative changes are identified. IMPRESSION: No evidence of fracture. THIS IS AN ELECTRONICALLY VERIFIED REPORT 02/09/2013 12:56 PM: Nikolai Castorena M.D. Nikolai Castorena M.D. AT:at 12:56 PM 12:[address] [facility] [EOD] Heidy Grayson MD IMG XR PROCEDURES Fin al Result documented in this encounter Visit Diagnoses Diagnosis Poisoning by heroin (HCC) Other early complication of trauma Accidental poisoning by salicylates Poisoning by benzodiazepine-based tranquilizers Acute renal failure (HCC) Acute kidney failure, unspecified Accidental poisoning by heroin (CMS/HCC) (HCC) documented in this encounter
--- OUTSIDE RECORDS SUMMARY | 2024-07-20 15:49 | XMS_ITS | Encounter Summary ---
Author Organization [facility] Healthcare Address [address] [place] [address] Care Team Providers Care Photonics Engineer Name Role Phone Unavailable Primary Care Provider Unavailabl e Encounter Details Date Type Department Care Team (Late st Contact Info) Description 07/16/2020 12:47 PM CABLE MAINTAINER - 07/16/2020 2:44 PM [facility] Emergency [address] [place] [address] Unknown, Kelly Pacheco MD [facility] [place] [address] Discharge Disposition: Discharge to home or self care Social History Tobacco Use Types Packs/Day Years Used Date Smoking Tobacco: Never Assessed Sex and Gender Information Value Date Recorded Sex Assigned at Not on file Legal Sex Male 6:06 AM CABLE MAINTAINER Gender Identity Not on file Sexual Orientation Straight 11/28/2020 9: 06 AM CDT documented as of this encounter Last Filed Vital Signs Vital Sign Reading Time Taken Comments Blood Pressure 112/85 07/16/2020 12:47 PM CABLE MAINTAINER Pulse 97 07/16/2020 12:47 PM CABLE MAINTAINER Temperature 36.7 ??C (98 ??F) 07/16/2020 12:47 PM CABLE MAINTAINER Respiratory Rate - - Oxygen Saturation 100% 07/16/2020 12:47 PM CABLE MAINTAINER Inhaled Oxygen Concentration - - Weight 100 kg (220 lb 7.4 oz) 07/16/2020 12:47 P M CABLE MAINTAINER Height 175.3 cm (5' 9 ) 07/16/2020 12:47 PM CABLE MAINTAINER Body Mass Index 32.56 07/16/2020 12:47 PM CABLE MAINTAINER documented in this encounter Medications at Time of Discharge naproxen (NAPROSYN) 500 mg tablet Take 500 mg by mouth every 12 (twelve) hours as needed 12/31/2019 06/03/2024 documented as of this encounter Discharge Disposition Disposition Code Departure Means Destination Discharge to home or self care documented in this encounter Plan of Treatment Not on file documented as of this encounter Procedures Procedure Name Priority Date/Time Associated Diagnosis Comments URINALYSIS, COMPLETE Routine 07/16/2020 1:25 PM CABLE MAINTAINER URINALYSIS AND REFLEX TO MICROSCOPIC Routine 07/16/2020 1:25 PM CABLE MAINTAINER DRUGS OF ABUSE SCREEN, URINE WITHOUT CONFIRMATION Routine 07/16/2020 1:25 PM CABLE MAINTAINER documented in this encounter Results * Drugs of Abuse Screen, Urine without Confirmation (07/16/2020 1:25 PM CABLE MAINTAINER) [facility] Amphetamines DETECTED [facility] Comment: This assay uses 500 ng/mL as a cutoff for a positive result. Barbiturates NOT DETECTED [facility] Comment: This assay uses 200 ng/mL as a cutoff for a positive result. Urine Fentanyl DETECTED [facility] Comment: This assay uses 1 ng/mL as a cutoff for a positive result. Benzodiazepines DETECTED [facility] Comment: This assay uses 100 ng/mL as a cutoff for a positive result. Cannabinoids NOT DETECTED [facility] Comment: This assay uses 50 ng/mL as a cutoff for a positive result. Cocaine NOT DETECTED [facility] Comment: This assay uses 150 ng/mL as a cutoff for a positive result. Opiates NOT DETECTED [facility] Comment: This assay uses 300 ng/mL as a cutoff for a positive result. Urine methadone NOT DETECTED [facility] Comment: This assay uses 300 ng/mL as a cutoff for a positive result. Urine phencyclidine plus NOT DETECTED [facility] Comment: This assay uses 25 ng/mL as a cutoff for a positive result. Oxycodone NOT DETECTED [facility] Comment: This assay uses 100 ng/mL as a cutoff for a positive result. Urine Creatinine/MARTELL 213.0 mg/dL [facility] Comment: If Creatinine is < 40 mg/dL, recollection is suggested. Drug of abuse screening is performed by immunoassay for medical purposes only. This is not to be used for Pain Management purposes. 07/16/2020 1:25 PM CABLE MAINTAINER 07/16/2020 1:44 PM CABLE MAINTAINER Narrative Resulting Agency Comment ER us Kelly Reaves MD LAB URINE ORDERABLES Nettie pierre Result [facility] [address] [place] [address], [facility] [phone] * (ABNORMAL) Urinalysis, Complete (07/16/2020 1:25 PM CABLE MAINTAINER) Ur Collection Type OTHER [facility] Urine Color YELLOW YELLOW [facility] Urine Clarity Slightly-Leonila udy CLEAR [facility] Urine Glucose (UA) 50(A) NORMAL mg/dL [facility] Urine Bilirubin NEGATIVE NEGATIVE mg/dl [facility] Urine Ketones NEGATIVE NEGATIVE mg/dL [facility] Ur Specific Powersite 1.024 1.005 - 1.025 [facility] Urine Blood NEGATIVE NEGATIVE mg/dl [facility] Urine pH 5.0 5.0 - 8.0 [facility] Urine Protein NEGATIVE NEGATIVE mg/dL [facility] Urine Urobilinogen 2(A) NORMAL mg/dL [facility] Urine Nitrite NEGATIVE NEGATIVE [facility] Ur Leukocyte Esterase NEGATIVE NEGATIVE Gokul/ul [facility] Ur Microscopic Review Indicated or Ordered [facility] Urine RBC 0-2 0 - 2 /HPF [facility] Urine WBC 0-5 0 - 2 /HPF [facility] Urine Bacteria Trace /HPF [facility] Urine Mucus Present /LPF [facility] Urine Sperm Present /HPF [facility] 07/16/2020 1:25 PM CABLE MAINTAINER 07/16/2020 1:44 PM CABLE MAINTAINER Narrative [facility] - 07/16/2020 2:00 PM CABLE MAINTAINER mm Other Resulting Agency Comment ER Kelly Reaves MD LAB URINE ORDERABLES Nettie l Result [facility] [address] [place], [place] [id number] [place] [address] * (ABNORMAL) Urinalysis reflex to microscopic (07/16/2020 1:25 PM CABLE MAINTAINER) Ur Collection Type OTHER [facility] Urine Color YELLOW YELLOW [facility] Urine Clarity Slightly-Leonila udy CLEAR [facility] Urine Glucose (UA) 50(A) NORMAL mg/dL [facility] Urine Bilirubin NEGATIVE NEGATIVE mg/dl [facility] Urine Ketones NEGATIVE NEGATIVE mg/dL [facility] Ur Specific Powersite 1.024 1.005 - 1.025 [facility] Urine Blood NEGATIVE NEGATIVE mg/dl [facility] Urine pH 5.0 5.0 - 8.0 [facility] Urine Protein NEGATIVE NEGATIVE mg/dL [facility] Urine Urobilinogen 2(A) NORMAL mg/dL [facility] Urine Nitrite NEGATIVE NEGATIVE [facility] Ur Leukocyte Esterase NEGATIVE NEGATIVE Gokul/ul [facility] Ur Microscopic Review Indicated or Ordered [facility] Urine RBC 0-2 0 - 2 /HPF [facility] Urine WBC 0-5 0 - 2 /HPF [facility] Urine Bacteria Trace /HPF [facility] Urine Mucus Present /LPF [facility] Urine Sperm Present /HPF [facility] 07/16/2020 1:25 PM CABLE MAINTAINER 07/16/2020 1:44 PM CABLE MAINTAINER Narrative [facility] - 07/16/2020 2:00 PM CABLE MAINTAINER mm Other Resulting Agency Comment ER us Kelly Reaves MD LAB URINE ORDERABLES Nettie pierre Result [address] [address], [facility] [phone] documented in this encounter Visit Diagnoses Not on filedocumented in this encounter
--- OUTSIDE RECORDS SUMMARY | 2024-07-20 15:49 | XMS_ITS | Encounter Summary ---
Author Organization [facility] Address [address] [place] [address] Phone Care Team Providers Care [employer] Registrar Name Role Phone Baljeet Doran MD Primary Care Provider + [phone] Vicky Galindo MD Primary Care Provider + [phone] Bear Cruz MD Primary Care Provider [phone] Encounter Details Date Type Department Care Team (Late st Contact Info) Description 11/12/2020 Documentation [facility] Orthopaedic Surgery [address] [facility] Advanced [facility] 12th [place] [address] [place] [phone] Ilene Dong RN Social History Tobacco Use Types Packs/Day Years Used Date Smoking Tobacco: Never Smokeless Tobacco: Never Sex and Gender Information Value Date Recorded Sex Assigned at Not on file Legal Sex Male 6:06 AM MANAGER ACQUISITION Gender Identity Not on file Sexual Orientation Straight 11/28/2020 9: 06 AM CDT documented as of this encounter Plan of Treatment Not on file documented as of this encounter Visit Diagnoses Not on filedocumented in this encounter Care Teams [employer] Registrar Relationship Specialty Start Date End Date Baljeet Doran MD [address] [facility] [address] [place] [address] PCP - General Family Medicine 11/04/20 11/15/20 Vicky Galindo MD [address] [facility] [address] [place] [address] PCP - General 11/16/20 06/02/24 Bear Cruz MD [address] [facility] [address] [place] [address] PCP - General Emergency Medicine 06/03/24 documented as of this encounter
--- OUTSIDE RECORDS SUMMARY | 2024-07-20 15:49 | XMS_ITS | Encounter Summary ---
Author Organization [facility] Address [address] [place] [address] Phone Care Team Providers Care Housekeeping Room Attendant Name Role Phone Baljeet Doran MD Primary Care Provider +1- [phone] Reason for Visit * Reason Comments Pain Encounter Details Date Type Department Care Team (Late st Contact Info) Description 11/05/2020 12:45 PM CDT Office Visit [facility] Orthopaedic Surgery [address] [facility] Medical Office Building [address] [place] [id number] Andi Eugene MD [address] [facility] [address] [place] [address] Closed displaced fracture of acromial end of right clavicle, initial encounter (Primary Dx) Social History Tobacco Use Types Packs/Day Years Used Date Smoking Tobacco: Never Smokeless Tobacco: Never Sex and Gender Information Value Date Recorded Sex Assigned at Not on file Legal 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: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 Gender Identity Not on file Sexual Orientation Straight 11/28/2020 9: 06 AM CDT documented as of this encounter Last Filed Vital Signs Vital Sign Reading Time Taken Comments Blood Pressure - - Pulse - - Temperature - - Respiratory Rate - - Oxygen Saturation - - Inhaled Oxygen Concentration - - Weight 83.9 kg (185 lb) 11/05/2020 12:37 PM CDT Height 175.3 cm (5' 9 ) 11/05/2020 12:37 PM CDT Body Mass Index 27.32 11/05/2020 12:37 PM CDT documented in this encounter Progress Notes * Andi Eugene MD - 11/05/2020 12:45 PM CDT NEW PATIENT VISIT CHIEF COMPLAINT Pain of the Right Clavicle HISTORY OF PRESENT ILLNESS Raffaele Valenzuela is a 40-year-old male who presents with right shoulder pain after a fall last Mondaydripping down the stairs of [place]. He landed on his right shoulder. He had immediate onset right shoulder pain. He went to the emergency room in [place], [place] where he was diagnosed with a distal clavicle fracture. Comes in today to discuss definitive management for this. He has been taking narcotic pain medications for pain. He is otherwise relatively healthy. 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 PAST MEDICAL HISTORY Past medical history includes attention deficit disorder and anxiety PAST SURGICAL HISTORY He has had partial meniscectomy on the right knee. INITIAL REVIEW OF MEDICATIONS He has a current medication list which includes the following prescription(s): hydrocodone-acetaminophen, ibuprofen, alprazolam, and dextroamphetamine-amphetamine. DRUG ALLERGIES He has No Known Allergies. SOCIAL HISTORY He reports that he has never smoked. He has never used smokeless tobacco. Reports social alcohol use and previous use of marijuana and LSD. FAMILY HISTORY His family history is not on file. REVIEW OF SYSTEMS Review of Systems Constitutional: Positive for unexpected weight change. HENT: Negative. Eyes: Negative. Respiratory: Positive for shortness of breath. Cardiovascular: Negative. Gastrointestinal: Negative. Endocrine: Negative. Genitourinary: Negative. Skin: Negative. Allergic/Immunologic: Negative. Hematological: Negative. Psychiatric/Behavioral: The patient is nervous/anxious. PHYSICAL EXAMINATION On physical exam, he is in no acute distress. Awake, alert, and oriented x3. He is able to answer questions appropriate participate in his exam. He has significant ecchymosis over the distal clavicleand right chest. He is able to forward elevate to approximately 70??. He can externally rotate to 40??. He can internally rotate to the low lumbar spine. His motor and sensory exam demonstrates intact axillary, median, ulnar, radial, and musculocutaneous nerve distributions. REVIEW OF X-RAYS/STUDIES X-rays of the right shoulder and clavicle that were previously obtained were independently reviewedby me today. These demonstrate a distal clavicle fracture that is comminuted around the cc ligaments. There is a fracture medial to the cc ligaments that is complete with over 100% displacement of the medial clavicle. IMPRESSION/DIAGNOSIS Right distal clavicle fracture TREATMENT PLAN A prolonged discussion the patient regarding his radiographic clinical findings. He has a significantly comminuted right distal clavicle fracture. This there is significantly displacement. We reviewed the potential risks with non operative management which includes a high rate of nonunion and subsequent ongoing pain and weakness in the right upper extremity. We reviewed the surgical option that would include potentially dual plating and possible reinforcement with CC FiberWire. We reviewed the potential risks of surgery which include nonunion, malunion, infection, and persistent pain. After review of the risks and benefits of both non operative and operative management as well as the required rehabilitation, he wishes to pursue surgical intervention. This will be scheduled. FOLLOW-UP For surgery Andi Eugene MD Road Equipment Operator of Orthopedic Surgery Shoulder and Elbow Service [facility] Orthopedics [facility] Dr. Chris Eugene dictating using Fluency Direct. Clean Energy Policy Analyst variances may occur. documented in this encounter Plan of Treatment Not on file documented as of this encounter Visit Diagnoses Diagnosis Closed displaced fracture of acromial end of right clavicle, initial encounter- Primary documented in this encounter Historical Medications * This list may reflect changes made after this encounter. dextroamphetamine -amphetamine (ADDERALL) 7.5 mg tablet Take 7.5 mg by mouth 2 (two) times a day 08/27/2020 ALPRAZolam (XANAX) 2 mg tablet 09/07/2020 HYDROcodone-aceta minophen (NORCO) 5-325 mg per tablet Take 1 tablet by mouth every 6 (six) hours as needed 10/31/2020 06/03/2024 ibuprofen (ADVIL,MOTRIN) 600 mg tablet Take 600 mg by mouth every 6 (six) hours as needed 10/31/2020 11/10/2020 added in this encounter Care Teams Housekeeping Room Attendant Relationship Specialty Start Date End Date Baljeet Doran MD [address] [facility] [address] [place] [address] PCP - General Family Medicine 11/04/20 11/15/20 documented as of this encounter
--- OUTSIDE RECORDS SUMMARY | 2024-07-20 15:49 | XMS_ITS | Encounter Summary ---
Author Organization [facility] Address [address] [place] [address] Phone Care Team Providers Care Bakery Sales Clerk Name Role Phone Baljeet Doran MD Primary Care Provider +1- [phone] Encounter Details Date Type Department Care Team (Late st Contact Info) Description 11/12/2020 Telephone [facility] Orthopaedic Surgery [address] [facility] 12th [place] [address] [place] [address] Andi Eugene MD [address] [facility] [address] [place] [address] Social History Tobacco Use Types Packs/Day Years Used Date Smoking Tobacco: Never Smokeless Tobacco: Never Sex and Gender Information Value Date Recorded Sex Assigned at Not on file Legal Sex Male 6:[address] WAITER/WAITRESS Gender Identity Not on file Sexual Orientation Straight 11/28/2020 9: 06 AM CDT documented as of this encounter Miscellaneous Notes * Telephone Encounter - Ilene Dong RN - 11/12/2020 12:52 PM CDT Pt was scheduled to have a right distal clavicle ORIF this past Friday 11/10 at [facility]. RN was informed by pt's mother prior to surgery making us aware that the patient was admitted to the hospital with pneumonia. Sx was cancelled on that day and message was left telling pt to inform our office oncept was discharged from the hospital. Pt returned call today making us aware that he was discharged from the hospital and ready to re-schedule his surgery. Upon asking the patient questions regarding his hospitalization, the pt informed RN that he was admitted to [facility] on Tuesday 11/07 after using heroin that was laced with something. the patient stated that he started hallucinating and becoming violent with himself and staff and that he had the strength of a gorilla. He was thenplaced in an induced coma and developed aspiration pneumonia. He was discharged from the hospital on 11/11 and given a script for antibiotics (Moxifloxacin 400 mg) to take daily. Pt states that he wasthrashing in the hospital and does not know how much further damage was done to his fracture. Dr. Eugene aware of information and orders received to have patient f/u with Dr. Eugene in the office on Thursday 11/16 at the . Appointment made and patient verbalizes understanding. documented in this encounter Plan of Treatment Not on file documented as of this encounter Visit Diagnoses Not on filedocumented in this encounter Care Teams Bakery Sales Clerk Relationship Specialty Start Date End Date Baljeet Doran MD [address] [address] PCP - General Family Medicine 11/04/20 11/15/20 documented as of this encounter
--- OUTSIDE RECORDS SUMMARY | 2024-07-20 15:49 | XMS_ITS | Encounter Summary ---
Author Organization [facility] Address [address] [place] [address] Phone Care Team Providers Care Stone And Plate Preparer Apprentice Name Role Phone Baljeet Doran MD Primary Care Provider +1- [phone] Encounter Details Date Type Department Care Team (Late st Contact Info) Description 11/04/2020 Orders Only [facility] Orthopaedic Surgery [address] [facility] 12th [place] [address] [place] [address] Andi Eugene MD [address] [facility] 6A[address]6B[address]A [place], [place] [id number] Pain of right clavicle (Primary Dx) Social History Tobacco Use Types Packs/Day Years Used Date Smoking Tobacco: Never Assessed Sex and Gender Information Value Date Recorded Sex Assigned at Not on file 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
--- OUTSIDE RECORDS SUMMARY | 2024-07-20 15:49 | XMS_ITS | Encounter Summary ---
Author Organization [facility] Address [address] [place] [address] Care Team Providers Care Steel Pourer Helper Name Role Phone Baljeet Doran MD Primary Care Provider +1- [phone] Encounter Details Date Type Department Care Team (Latest Contact Info) Description 11/05/2020 3:37 PM CDT - 11/05/2020 3:39 PM CDT Hospital Encounter [facility] [address] [place] [address] Discharge Disposition: Discharge to home or self care Social History Tobacco Use Types Packs/Day Years Used Date Smoking Tobacco: Never Smokeless Tobacco: Never Sex and Gender Information Value Date Recorded Sex Assigned at Not on file 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 Gender Identity Not on file Sexual [...] by mouth every 12 (twelve) hours 08/08/2020 docusate sodium (COLACE) 100 mg capsule Take 100 mg by mouth 2 (two) times a day 11/03/2020 11/24/2020 ibuprofen (ADVIL,MOTRIN) 600 mg tablet Take 600 mg by mouth every 6 (six) hours as needed 10/31/2020 11/10/2020 HYDROcodone-aceta minophen (NORCO) 5-325 mg per tablet [...] Name Priority Date/Time Associated Diagnosis Comments XR TRANSFER OF OUTSIDE FILMS Routine 11/05/2020 3:37 PM CDT Diagnosis unknown documented in this encounter Results * XR Outside Reference (11/05/2020 3:37 PM CDT) Impressions [facility] - 11/05/2020 3:37 PM CDT These images are for Reference purposes only and have not been reviewed by [facility]. ??There will be no report generated by a [facility]iologist. Narrative [facility] - 11/05/2020 3:37 PM CDT EXAMINATION: ??Images For Reference Purposes Only Andi Eugene MD IMG XR PROCEDURES Final Result [facility] documented in this encounter Visit Diagnoses Not on filedocumented in this encounter Care Teams Steel Pourer Helper Relationship Specialty Start Date End Date Baljeet Doran MD [address] [address] PCP - General Family Medicine 11/04/20 11/15/20 documented as of this encounter
--- OUTSIDE RECORDS SUMMARY | 2024-07-20 15:49 | XMS_ITS | Encounter Summary ---
Author Organization [facility] Address [address] [place] [address] Phone Care Team Providers Care Edger Tailer Name Role Phone Vicky Galindo MD Primary Care Provider +1- [phone] Reason for Referral * Diagnostic Imaging (Routine) - Closed Specialty Diagnoses / Procedures Referred By Keny t Referred To Contact Diagnoses Right shoulder pain, unspecified chronicity Procedures XR Shoulder Right 2 or More Views Andi Eugene MD [address] [place] [address] Phone: tel: fax: [address] [address] Referral ID Status Reason Start Date Expiration Date Visits Re quested Visits Authorized [id number] Closed 11/16/2020 12/16/2021 1 1 Encounter Details Date Type Department Care Team (Late st Contact Info) Description 11/16/2020 11:15 AM CDT Office Visit [facility] Orthopaedic Surgery [address] [facility] 2nd Floor [address] [place] [address] Andi Eugene MD [address] [employer] [address] [place] [address] Closed displaced fracture of acromial end of right clavicle, initial encounter (Primary Dx); Right shoulder pain, unspecified chronicity; Illicit drug use Social History Tobacco Use Types Packs/Day Years Used Date Smoking Tobacco: Never Smokeless Tobacco: Never Sex and Gender Information Value Date Recorded Sex Assigned at Not on file 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 He was supposed to have surgery last week. Unfortunately, he was admitted to the hospital in intubated. He then subsequently developed an aspiration pneumonia. Been on antibiotics for this. He admits to illicit drug use which resulted in hallucinations violent outbursts requiring intubation. He states that he has been clean. 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 He believes that as xanax pill he took was laced with something. He has been in his sling. PHYSICAL EXAMINATION No acute distress, alert and oriented X 3. His exam is unchanged. He has a distal clavicle fracture that is significantly displaced. Over[place]ingskin is intact. REVIEW OF X-RAYS/STUDIES New x-rays were obtained today to make sure there was no worsening of his displacement, comminution, or shoulder pathology. These were stable. IMPRESSION/DIAGNOSIS Displaced distal clavicle fracture with recent illicit drug use TREATMENT/PLAN A prolonged discussion with the patient regarding his radiographic clinical findings. We reviewed the implications of his drug use and how consistent drug use could place any surgery at risk especially in the postoperatively. He was made aware that surgical intervention could certainly make him worse if he was not compliant with his restrictions. It also poses risk for general anesthesia. He is adamant that he will be able to remain clean. We are going to test him over the next 2 weeks with theurinary drug screen and see him back in 2 weeks to discuss the results and options moving forward. It would not be ideal to treat this with surgery. However, if his UDS is persistently positive will not have another option. He was in agreement with this plan. FOLLOW UP Two weeks with x-rays MD Nan Floresissnicole Professor [facility] Dr Eugene dictating via MModal. Java Manager variances may occur. documented in this encounter Plan of Treatment Not on file documented as of this encounter Results * (ABNORMAL) Drugs of Abuse Screen, Urine with Reflex Confirmation (11/16/2020 1:21 PM CDT) Amphetamine, ur Detected(A) CutOff 500ng/mL [facility] Comment: Interpretive Data - Amphetamines: ??Samples containing greater than 500 ng/mL d-methamphetamine ??or other cross-reacting amphetamine compounds are reported as positive. ??Amphetamine immunoassays are subject to significant false positive rates due to cross-reactivity of non-amphetamine drugs. Current Interpretive Data was last reviewed 2018. Barbiturates, ur Detected(A) CutOff 200ng/mL [facility] Comment: Interpretive Data - Barbiturates: ??Samples containing greater than 200 ng/mL secobarbital or other cross-reacting barbiturate compounds are reported as positive. ??False positive and false negative results are possible. Current Interpretive Data was last reviewed 2018. Benzodiazepines, ur Detected(A) CutOff 100ng/mL [facility] Comment: Interpretive Data - Benzodiazepines: ??Samples containing greater than 100 ng/mL nordiazepam or other cross-reacting compounds are reported as positive. ?? False positive and false negative results are possible. ?? Current Interpretive Data was last reviewed 2018. Cannabinoids, ur Not Detected CutOff 50 ng/mL [facility] Comment: Interpretive Data - Cannabinoids: ??Samples containing greater than 50 ng/mL delta-9 THC -COOH or other cross-reacting compounds are reported as positive. ??False positive and false negative results are possible. ?? Current Interpretive Data was last reviewed 2018. Cocaine, ur Not Detected CutOff 150ng/mL [facility] Comment: Interpretive Data - Cocaine: ??Samples containing greater than 150 ng/mL benzoylecgonine or other cross-reacting compounds are reported as positive. False positive and false negative results are possible. Current Interpretive Data was last reviewed 2018. Fentanyl, Ur Detected(A) Cutoff 1 ng/mL [facility] Comment: Interpretive Data - Fentanyls: ??Samples containing greater than 1 ng/mL fentanyl or other cross-reacting fentanyl compounds are reported as detected. ??False positive and false negative results are possible. Current Interpretive Data was last reviewed 2019. Methadone, ur Not Detected CutOff 300ng/mL [facility] Comment: Interpretive Data - Methadone: ??Samples containing greater than 300 ng/mL d,l-methadone or other cross-reacting compounds are reported as positive. ??False positive and false negative results are possible. Current Interpretive Data was last reviewed 2018. Opiates, ur Detected(A) CutOff 300ng/mL [facility] Comment: Interpretive Data - Opiates: ??Samples containing greater than 300 ng/mL morphine or other cross-reacting compounds are reported as positive. ??False positive and false negative results are possible. Current Interpretive Data was last reviewed 2018. Oxycodone, ur Not Detected CutOff 100ng/mL [facility] Comment: Interpretive Data - Oxycodone: ??Samples containing greater than 100 ng/mL oxycodone or other cross-reacting compounds are reported as positive. ??False positive and false negative results are possible. ?? Current Interpretive Data was last reviewed 2018. Phencyclidine, ur Not Detected CutOff 25 ng/mL [facility] Comment: Interpretive Data - Phencyclidine: ??Samples containing greater than 25 ng/mL phencyclidine or other cross-reacting compounds are reported as positive. ??False positive and false negative results are possible. ?? Current Interpretive Data was last reviewed 2018. Urine Creatinine 223 mg/dL [facility] Comment: Interpretive Data Urine Creatinine: < 10 mg/dL is extremely dilute = or > 10 but < 20 mg/dL is dilute = or > 20 mg/dL is normal Current Interpretive Data was last revised on 2017. Urine 11/16/2020 1:21 PM CDT 11/16/2020 2:26 PM CDT Narrative [facility] - 11/16/2020 3:03 PM CDT Drug of Abuse screening is performed by immunoassay for medical purposes only. ??This is not to be used for Pain Management purposes. ??If Detected, confirmation testing will be performed for Amphetamines, Cocaine, Fentanyl, Methadone, Opiates, Oxycodone or Phencyclidine. Andi Eugene MD LAB URINE ORDERAB LES Final Result [facility] [address] Department [place] [address] * XR Shoulder Right 2 or More Views (11/16/2020 11:34 AM CDT) Anatomical Region Laterality Modality Upper Extremities, Shoulder Right Comp uted Radiography 11/16/2020 11:5 6 AM CDT Impressions 11/16/2020 11:56 AM CDT Comminuted displaced and angulated right mid to distal clavicular fracture. Electronically signed by: Vishal Rojas M.D. Narrative 11/16/2020 11:56 AM CDT EXAMINATION: 1. Right shoulder minimum 2 views 2. Right clavicle complete HISTORY: Right clavicle fracture FINDINGS: 2 views of the right clavicle and 4 views of the right shoulder were performed with comparison made to 10/31/2020. There is a comminuted right clavicular fracture involving the midshaft of the distal clavicle. There is apex cranial angulation and approximately one half shaft width displacement. The fracture likely extends to the acromioclavicular joint. The glenohumeral joint space is normal. Procedure Note Vishal Rojas MD PhD - 11/16/2020 EXAMINATION: 1. Right shoulder minimum 2 views 2. Right clavicle complete HISTORY: Right clavicle fracture FINDINGS: 2 views of the right clavicle and 4 views of the right shoulder were performed with comparison made to 10/31/2020. There is a comminuted right clavicular fracture involving the midshaft of the distal clavicle. There is apex cranial angulation and approximately one half shaft width displacement. The fracture likely extends to the acromioclavicular joint. The glenohumeral joint space is normal. IMPRESSION: Comminuted displaced and angulated right mid to distal clavicular fracture. Electronically signed by: Vishal Rojas M.D. Andi Eugene MD IMG XR PROCEDURES Final Result documented in this encounter Visit Diagnoses Diagnosis Closed displaced fracture of acromial end of right clavicle, initial encounter- Primary Right shoulder pain, unspecified chronicity Illicit drug use Illicit drug use documented in this encounter Care Teams Edger Tailer Relationship Specialty Start Date End Date Vicky Galindo MD PCP - General 11/16/20 06/02/24 documented as of this encounter
--- OUTSIDE RECORDS SUMMARY | 2024-07-20 15:49 | XMS_ITS | Encounter Summary ---
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, subsequent encounter (Primary Dx) Social History Tobacco Use Types Packs/Day Years Used Date Smoking Tobacco: Never Smokeless Tobacco: Never Sex and Gender Information Value Date Recorded Sex Assigned at Not on file 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
--- OUTSIDE RECORDS SUMMARY | 2024-07-20 15:49 | XMS_ITS | Encounter Summary ---
Author Organization [facility] Healthcare Address [address] [place] [address] Care Team Providers Care Administrator Of Home Health Name Role Phone Unavailable Primary Care Provider Unavailabl e Encounter Details Date Type Department Care Team (Latest Contact Info) Description 10/25/2015 1:13 AM CDT - 10/25/2015 4:24 AM CDT Hospital Encounter [facility] Ish Louis MD [address] [place] [address] Other psychoactive substance abuse, uncomplicated Social History Tobacco Use Types Packs/Day Years Used Date Smoking Tobacco: Never Assessed Sex and Gender Information Value Date Recorded Sex Assigned at Not on file 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 Gender Identity Not on file Sexual Orientation Straight 11/28/2020 9: 06 AM CDT documented as of this encounter Last Filed Vital Signs Vital Sign Reading Time Taken Comments Blood Pressure 136/83 10/25/2015 1:15 AM CDT Pulse 71 10/25/2015 1:15 AM CDT Temperature 36.9 ??C (98.5 ??F) 10/25/2015 1:15 AM CD T Respiratory Rate - - Oxygen Saturation 99% 10/25/2015 1:15 AM CDT Inhaled Oxygen Concentration - - Weight 86.2 kg (190 lb) 10/25/2015 1:15 AM CDT Height 175.3 cm (5' 9 ) 10/25/2015 1:15 AM CDT Body Mass Index 28.06 10/25/2015 1:15 AM CDT documented in this encounter Plan of Treatment Not on file documented as of this encounter Procedures Procedure Name Priority Date/Time Associated Diagnosis Comments CBC WITH AUTO DIFFERENTIAL Routine 10/25/2015 3:09 AM CDT ETHANOL Routine 10/25/2015 3:09 AM CDT ACETAMINOPHEN LEVEL Routine 10/25/2015 3 :09 AM CDT SALICYLATE LEVEL Routine 10/25/2015 3:09 AM CDT COMPREHENSIVE METABOLIC PANEL Routine 10/25/2015 3:09 AM CDT DRUGS OF ABUSE SCREEN, URINE WITHOUT CONFIRMATION Routine 10/25/2015 2:55 AM CDT documented in this encounter Results * Salicylate level (10/25/2015 3:09 AM CDT) Salicylates < 1 0 - 29 mg/dL 10/25/2015 3:09 AM CDT 10/25/2015 3:13 AM CDT Ish Harvey MD LAB BLOOD ORDERABLES Nettie l Result Performing Organization Address [facility] Co de Phone Number [facility] HISTORICAL RESULTS * (ABNORMAL) Acetaminophen level (10/25/2015 3:09 AM CDT) Acetaminophen < 5.0(L) 10.0 - 30.0 ug/mL Comment: Acetaminophen concentrations greater than 200 ug/mL at four hours after ingestion and greater than 50 ug/mL at 12 hours after ingestion are often associated with toxicity. 10/25/2015 3:09 AM CDT 10/25/2015 3:13 AM CDT Ish Harvey MD LAB BLOOD ORDERABLES Nettie l Result Performing Organization Address City/[facility]/ZIP Co de Phone Number [facility] HISTORICAL RESULTS * Ethanol (10/25/2015 3:09 AM CDT) Ethyl Alcohol < 10 mg/dL Comment:% = mg/dL x .001 10/25/2015 3:09 AM CDT 10/25/2015 3:13 AM CDT us Ish Harvey MD LAB BLOOD ORDERABLES Nettie l Result [facility] HISTORICAL RESULTS * (ABNORMAL) Comprehensive metabolic panel (10/25/2015 3:09 AM CDT) Pathologist [facility] Sodium 140 135 - 145 mmol/L Potassium 3.7 3.3 - 5.1 mmol/L Chloride 102 96 - 108 mmol/L Carbon Dioxide 29 22 - 32 mmol/L Anion Gap 9 7 - 16 Glucose 101(H) 70 - 100 mg/dL BUN 13 6 - 20 mg/dL Creatinine 0.8 0.5 - 1.3 mg/dL Comment: NOTE: Estimated GFR (Cockroft-Gault) will NOT be calculated unless patient Height and Weight were entered. Also, Kidney Disease Stage (GFR) and Estimated GFR (Cockroft-Gault) will NOT be calculated if Creatinine result is <0.2. Kidney Disease Stage > 90 mL/MIN Comment: NOTE; ??The GFR is an [...] ? Kidney failure or on dialysis @ Est GFR (Cockcroft-G) 137 ml/MIN 10/25/2015 3:38 AM [employer] [facility] [employer] HISTORICAL RESULTS Calcium 9.0 8.6 - 10.0 mg/dL 10/25/2015 3:38 AM [employer]Sheet [facility] [employer] HISTORICAL RESULTS Total Protein 6.7 6.4 - 8.3 g/dL 10/25/2015 3:38 AM [employer]Sheet [facility] [employer] HISTORICAL RESULTS Albumin 4.1 3.5 - 5.2 g/dL 10/25/2015 3:38 AM AppSheet [facility] [employer] [facility] HISTORICAL RESULTS Globulin 2.6 2.3 - 3.5 gm/dL 10/25/2015 3:38 AM AppSheet [facility] [employer] HISTORICAL RESULTS Albumin/Globulin Ratio 1.6 1.1 - 1.8 10/25/2015 3:38 AM [employer] [facility] [employer] [facility] HISTORICAL RESULTS Total Bilirubin 0.5 0.0 - 1.2 mg/dL 10/25/2015 3:38 AM [employer] HISTORICAL RESULTS AST 26 0 - 40 U/L 10/25/2015 3:38 AM [email or web address] [facility] [employer] HISTORICAL RESULTS ALT 27 0 - 41 U/L 10/25/2015 3:38 AM [employer] [facility] [employer] [facility] HISTORICAL RESULTS Alkaline Phosphatase 80 40 - 129 U/L 10/25/2015 3:38 AM [facility] [employer] [facility] HISTORICAL RESULTS 10/25/2015 3:09 AM CDT 10/25/2015 3:13 AM CDT Narrative [facility] HISTORICAL RESULTS - 10/25/2015 3:38 AM CDT Comment Glucose, blood, POC Ish Harvey MD LAB BLOOD ORDERABLES Nettie l Result [facility] HISTORICAL RESULTS * (ABNORMAL) CBC with auto differential (10/25/2015 3:09 AM CDT) [facility] WBC 8.9 4.6 - 10.2 x10 3/ul RBC 4.48 4.11 - 5.71 x10 6/ul Hemoglobin 12.9(L) 13.0 - 17.0 g/dl Hct 36.9(L) 38.2 - 48.5 % MCV 82.4 80.0 - 97.0 fl MCH 28.8 27.0 - 31.2 pg MCHC 35.0 31.8 - 35.4 g/dl RDW 12.9 11.6 - 14.8 % Plt Count 170 124 - 400 x10 3/ul MPV 8.9 7.4 - 10.4 fl Differential Method AUTOMATED DIFF --------- -- Neut % 68.0 37.0 - 85.0 % Immature Gran % 0.6 0.0 - 3.0 % Lymph % 19.6 5.0 - 45.0 % [place] % 8.3 3.0 - 15.0 % Eos % 3.1 0.0 - 7.0 % Baso % 0.4 0.0 - 2.0 % ABSOLUTE COUNTS ABSOLUTE COUNTS --------- -- Absolute Neuts (auto) 6.1 1.7 - 8.7 x10 3/ul Immature Gran # 0.1 0.0 - 0.3 x10 3/ul Absolute Lymphs (auto) 1.8 0.2 - 4.6 x10 3/ul Absolute Monos (auto) 0.7 0.1 - 1.5 x10 3/ul Absolute Eos (auto) 0.3 0.0 - 0.7 x10 3/ul Absolute Basos (auto) 0.0 0.0 - 0.2 x10 3/ul 10/25/2015 3:09 AM CDT 10/25/2015 3:13 AM CDT us Ish Harvey MD LAB BLOOD ORDERABLES Nettie l Result [facility] HISTORICAL RESULTS * (ABNORMAL) Drug Screen, Urine (10/25/2015 2:55 AM CDT) [facility] Ur Amphetamine Screen POSITIVE(H) NEGATIVE Comment: [place]: [address]10/25/15 by: [id number] to:YANELI LONGORIA RN ?? CONFIRMATION on Positive result requested:NO ?? Cutoff Limit: ??1000 ng/mL ??Detects MDMA, MDA, d-Amphetamine, d-Methamphetamine, ?MBDB-HCl, MDEA and BDB-HCl Note: ??Positive results from this drug screen are unconfirmed. ??Unconfirmed screening results should not be used for non-medical purposes. Ur Barbiturates Screen NEGATIVE NEGATIVE Comment: Cutoff limit: ??200 ng/mL ??Detects Secobarbitol, Cyclopentobarbital, Aprobarbital, ?Butalbital, Allobarbital, Butabarbital, ?Pentobarbital, Amobarbital and Phenobarbital U Benzodiazepines Scrn POSITIVE(H) NEGATIVE Comment: [place] CALLED at: 33710/25/15 by: [id number] to:YANELI LONGORIA RN ?? CONFIRMATION on Positive result requested:NO Cutoff limit: 300 ng/mL U Cannabinoids Screen NEGATIVE NEGATIVE Comment:Cutoff Limit: 50 ng/ mL U Cocaine Metab Screen NEGATIVE NEGATIVE Comment:Cutoff limit: 300 ng /mL Urine Opiates Screen POSITIVE(H) NEGATIVE Comment: [place]ED [place]: 33710/25/15 by: [id number] to:YANELI LONGORIA RN ?? CONFIRMATION on Positive result requested:NO Cutoff Limit: ??300 ng/mL Detects Morphine, Codeine, Ethyl Morphine, ?Diacetylmorphine, 6-Acetylmorphine, Dihydrocodeine, ?Buuhvrid-4-cftvxfuukfl and Hydrocodone Ur Oxycodone Screen NEGATIVE NEGATIVE Comment:Cutoff Limit: 100 ng /mL Urine Creatinine/MARTELL 188.0 mg/dL Comment:If Creatinine is < 4 0 mg/dL, recollection is suggested. 10/25/2015 2:55 AM CDT 10/25/2015 3:01 AM CDT Narrative [facility] HISTORICAL RESULTS - 10/25/2015 3:32 AM CDT Collected By [facility] us Ish Harvey MD LAB URINE ORDERABLES Nettie pierre Result [facility] HISTORICAL RESULTS documented in this encounter Visit Diagnoses Diagnosis Other psychoactive substance abuse, uncomplicated (HCC) documented in this encounter
--- OUTSIDE RECORDS SUMMARY | 2024-07-20 15:49 | XMS_ITS | Encounter Summary ---
Author Organization [facility] Healthcare Address [address] [place] [address] Care Team Providers Care Special Investigator Name Role Phone Unavailable Primary Care Provider Unavailabl e Encounter Details Date Type Department Care Team (Latest Contact Info) Description 06/03/2014 8:08 PM REGISTERED DIET TECHNICIAN - 06/04/2014 3:01 AM REGISTERED DIET TECHNICIAN Hospital Encounter [facility] ER Kelly Reaves MD [address] [facility] [place] [address] Poisoning by drug or medicinal substance; Altered mental status; Accidental poisoning by drug Social History Tobacco Use Types Packs/Day Years Used Date Smoking Tobacco: Never Assessed Sex and Gender Information Value Date Recorded Sex Assigned at Not on file Legal Sex Male 6:06 AM REGISTERED DIET TECHNICIAN Gender Identity Not on file Sexual Orientation Straight 11/28/2020 9: 06 AM CDT documented as of this encounter Last Filed Vital Signs Vital Sign Reading Time Taken Comments Blood Pressure 134/73 06/03/2014 8:08 PM REGISTERED DIET TECHNICIAN Pulse 83 06/03/2014 8:08 PM REGISTERED DIET TECHNICIAN Temperature 37.6 ??C (99.6 ??F) 06/03/2014 8:08 PM CS T Respiratory Rate - - Oxygen Saturation 96% 06/03/2014 8:08 PM REGISTERED DIET TECHNICIAN Inhaled Oxygen Concentration - - Weight 107 kg (235 lb 14.3 oz) 06/03/2014 8:08 P M REGISTERED DIET TECHNICIAN Height 172.7 cm (5' 8 ) 06/03/2014 8:08 PM REGISTERED DIET TECHNICIAN Body Mass Index 35.87 06/03/2014 8:08 PM REGISTERED DIET TECHNICIAN documented in this encounter Plan of Treatment Not on file documented as of this encounter Procedures Procedure Name Priority Date/Time Associated Diagnosis Comments HEMOGRAM WITH MANUAL DIFFERENTIAL Routine 06/03/2014 8:49 PM REGISTERED DIET TECHNICIAN ETHANOL Routine 06/03/2014 8:49 PM REGISTERED DIET TECHNICIAN ACETAMINOPHEN LEVEL Routine 06/03/2014 8 :49 PM REGISTERED DIET TECHNICIAN SALICYLATE LEVEL Routine 06/03/2014 8:49 PM REGISTERED DIET TECHNICIAN COMPREHENSIVE METABOLIC PANEL Routine 06/03/2014 8:49 PM REGISTERED DIET TECHNICIAN UA WITH CULTURE REFLEX Routine 4 8:16 PM REGISTERED DIET TECHNICIAN DRUGS OF ABUSE SCREEN, URINE WITHOUT CONFIRMATION Routine 06/03/2014 8:16 PM REGISTERED DIET TECHNICIAN XR CHEST 1 VIEW Routine 06/03/2014 12:00 AM REGISTERED DIET TECHNICIAN documented in this encounter Results * (ABNORMAL) Hemogram with manual differential (06/03/2014 8:49 PM REGISTERED DIET TECHNICIAN) WBC 24.3(H) 4.6 - 10.2 x10 3/ul 06/03/2014 8:58 PM REGISTERED DIET TECHNICIAN [employer] HISTORICAL RESULTS RBC 4.92 4.11 - 5.71 x10 6/ul 06/03/2014 8:58 PM REGISTERED DIET TECHNICIAN [employer] HISTORICAL RESULTS Hemoglobin 14.5 13.0 - 17.0 g/dl 06/03/2014 8:58 PM REGISTERED DIET TECHNICIAN [employer] HISTORICAL RESULTS Hct 42.1 38.2 - 48.5 % 06/03/2014 8:58 PM REGISTERED DIET TECHNICIAN [employer] HISTORICAL RESULTS MCV 85.6 80.0 - 97.0 fl 06/03/2014 8:58 PM REGISTERED DIET TECHNICIAN [employer] HISTORICAL RESULTS MCH 29.5 27.0 - 31.2 pg 06/03/2014 8:58 PM REGISTERED DIET TECHNICIAN [employer] HISTORICAL RESULTS MCHC 34.4 31.8 - 35.4 g/dl 06/03/2014 8:58 PM REGISTERED DIET TECHNICIAN [employer] HISTORICAL RESULTS RDW 12.3 11.6 - 14.8 % Plt Count 227 124 - 400 x10 3/ul MPV 9.6 7.4 - 10.4 fl Differential Method AUTOMATED DIFF --------- -- Neut % 88.6(H) 37.0 - 85.0 % Immature Gran % 0.5 0.0 - 3.0 % Lymph % 5.1 5.0 - 45.0 % Bond % 4.8 3.0 - 15.0 % Eos % 0.7 0.0 - 7.0 % Baso % 0.3 0.0 - 2.0 % ABSOLUTE COUNTS ABSOLUTE COUNTS --------- -- Absolute Neuts (auto) 21.5(H) 1.7 - 8.7 x10 3/ul Immature Gran # 0.1 0.0 - 0.3 x10 3/ul Absolute Lymphs (auto) 1.3 0.2 - 4.6 x10 3/ul Absolute Monos (auto) 1.2 0.1 - 1.5 x10 3/ul Absolute Eos (auto) 0.2 0.0 - 0.7 x10 3/ul Absolute Basos (auto) 0.1 0.0 - 0.2 x10 3/ul 06/03/2014 8:58 PM REGISTERED DIET TECHNICIAN [facility] HISTORICAL RESULTS Platelet Evaluation AGREE AGREE Comment:Slide review of plat elets correlates with instrument count. RBC Morphology NORMAL NORMAL 06/03/2014 8:49 PM REGISTERED DIET TECHNICIAN 06/03/2014 8:55 PM REGISTERED DIET TECHNICIAN us Kelly Reaves MD LAB BLOOD ORDERABLES Nettie l Result Performing Organization Address [facility] Co de Phone Number [facility] HISTORICAL RESULTS * Salicylate level (06/03/2014 8:49 PM REGISTERED DIET TECHNICIAN) Salicylates < 1 0 - 29 mg/dL 06/03/2014 9:19 PM REGISTERED DIET TECHNICIAN [facility] HISTORICAL RESULTS 06/03/2014 8:49 PM REGISTERED DIET TECHNICIAN 06/03/2014 8:55 PM REGISTERED DIET TECHNICIAN Kelly Reaves MD LAB BLOOD ORDERABLES Nettie l Result Performing Organization Address [facility] Co de Phone Number [facility] HISTORICAL RESULTS * Ethanol (06/03/2014 8:49 PM REGISTERED DIET TECHNICIAN) Ethyl Alcohol < 10 mg/dL 06/03/2014 9:18 PM REGISTERED DIET TECHNICIAN [facility] HISTORICAL RESULTS Comment:% = mg/dL x .001 06/03/2014 8:49 PM REGISTERED DIET TECHNICIAN 06/03/2014 8:55 PM REGISTERED DIET TECHNICIAN us Kelly Reaves MD LAB BLOOD ORDERABLES Nettie l Result Performing Organization Address [facility] Co de Phone Number [facility] HISTORICAL RESULTS * (ABNORMAL) Comprehensive metabolic panel (06/03/2014 8:49 PM REGISTERED DIET TECHNICIAN) Sodium 136 135 - 145 mmol/L 06/03/2014 9:18 PM REGISTERED DIET TECHNICIAN [facility] HISTORICAL RESULTS Potassium 4.2 3.3 - 5.1 mmol/L Chloride 96 96 - 108 mmol/L Carbon Dioxide 32 22 - 32 mmol/L Anion Gap 8 7 - 16 Glucose 194(H) 70 - 110 mg/dL BUN 17 6 - 20 mg/dL Creatinine 1.4(H) 0.5 - 1.3 mg/dL Kidney Disease Stage 61 mL/MIN Comment: NOTE; ??The GFR is an [...] Kidney failure or on dialysis @ Calcium 8.8 8.6 - 10.0 mg/dL Total Protein 7.0 6.4 - 8.3 g/dL Albumin 4.2 3.5 - 5.2 g/dL Globulin 2.8 2.3 - 3.5 gm/dL Albumin/Globulin Ratio 1.5 1.1 - 1.8 Total Bilirubin 0.4 0.0 - 1.2 mg/dL AST 62(H) 0 - 40 U/L ALT 37 0 - 41 U/L Alkaline Phosphatase 88 40 - 129 U/L 06/03/2014 8:49 PM REGISTERED DIET TECHNICIAN 06/03/2014 8:55 PM REGISTERED DIET TECHNICIAN Kelly Reaves MD LAB BLOOD ORDERABLES Nettie l Result Performing Organization Address [facility] de Phone Number [facility] HISTORICAL RESULTS * Acetaminophen level (06/03/2014 8:49 PM REGISTERED DIET TECHNICIAN) Pathologist [facility] Acetaminophen < 15.0 10.0 - 30.0 ug/mL Comment: Acetaminophen concentrations greater than 200 ug/mL at four hours after ingestion and greater than 50 ug/mL at 12 hours after ingestion are often associated with toxicity. 06/03/2014 8:49 PM REGISTERED DIET TECHNICIAN 06/03/2014 8:55 PM REGISTERED DIET TECHNICIAN Kelly Reaves MD LAB BLOOD ORDERABLES Nettie l Result Performing Organization Address [facility] de Phone Number [facility] HISTORICAL RESULTS * (ABNORMAL) Drug Screen, Urine (06/03/2014 8:16 PM REGISTERED DIET TECHNICIAN) Ur Amphetamine Screen NEGATIVE NEGATIVE Comment: Cutoff Limit: ??1000 ng/mL Note: ??Positive results from this drug screen are unconfirmed. ??Unconfirmed screening results should not be used for non-medical purposes. Ur Barbiturates Screen NEGATIVE NEGATIVE Comment:Cutoff limit: 200 ng /mL U Benzodiazepines Scrn POSITIVE(H) NEGATIVE 06/03/2014 9:22 PM REGISTERED DIET TECHNICIAN [facility] HISTORICAL RESULTS Comment: RESULT CALLED at: 211306/03/14 by: [id number] to: LUIZ JANSEN ?? CONFIRMATION on Positive result requested:NO Cutoff limit: 300 ng/mL U Cannabinoids Screen NEGATIVE NEGATIVE Comment:Cutoff Limit: 50 ng/ mL U Cocaine Metab Screen NEGATIVE NEGATIVE Comment:Cutoff limit: 300 ng /mL Urine Opiates Screen POSITIVE(H) NEGATIVE Comment: RESULT CALLED at: 212106/03/14 by: [id number] to: LUIZ JANSEN ?? CONFIRMATION on Positive result requested:NO Cutoff Limit: ??300 ng/mL Urine Creatinine/MARTELL 218.0 mg/dL Comment:If Creatinine is < 4 0 mg/dL, recollection is suggested. 06/03/2014 8:16 PM REGISTERED DIET TECHNICIAN 06/03/2014 8:33 PM REGISTERED DIET TECHNICIAN Narrative [facility] HISTORICAL RESULTS - 06/03/2014 9:13 PM REGISTERED DIET TECHNICIAN Collected By [email or web address] ?? [phone] us Kelly Reaves MD LAB URINE ORDERABLES Nettie l Result [facility] HISTORICAL RESULTS * (ABNORMAL) UA with Culture Reflex (06/03/2014 8:16 PM REGISTERED DIET TECHNICIAN) Ur Collection Type STRAIGHT CATH 06/03/2014 9:52 PM REGISTERED DIET TECHNICIAN [facility] HISTORICAL RESULTS Ur Culture Indicated? C&S NOT INDICATED Urine Color YELLOW YELLOW Urine Clarity CLEAR CLEAR Urine Glucose (UA) 300(H) NORMAL mg/dL Urine Bilirubin NEGATIVE NEGATIVE mg/dl Urine Ketones NEGATIVE NEGATIVE mg/dL Ur Specific [place] 1.018 1.005 - 1.025 Urine Blood NEGATIVE NEGATIVE mg/dl Urine pH 5.0 5.0 - 8.0 Urine Protein 10(H) NEGATIVE mg/dL Urine Urobilinogen NORMAL NORMAL mg/dL Urine Nitrite NEGATIVE NEGATIVE Ur Leukocyte Esterase NEGATIVE NEGATIVE Gokul/ul Ur Microscopic Review Not Indicated 06/03/2014 8:16 PM REGISTERED DIET TECHNICIAN 06/03/2014 8:33 PM REGISTERED DIET TECHNICIAN Kelly Reaves MD LAB URINE ORDERABLES Nettie pierre Result [facility] HISTORICAL RESULTS * XR Chest 1 View (06/03/2014 12:00 AM REGISTERED DIET TECHNICIAN) Anatomical Region Laterality Modality Body, Chest N/A Radiographic Ree ging 06/03/2014 Impressions 06/03/2014 10:10 PM REGISTERED DIET TECHNICIAN ??No active chest disease. THIS IS AN ELECTRONICALLY VERIFIED REPORT 06/03/2014 10:07 PM: ??Thom Asencio M.D. Thom Asencio M.D. RN:danilo 10:07 PM 10:07 PM NOR [EOD] Narrative 06/03/2014 10:10 PM REGISTERED DIET TECHNICIAN CHEST SINGLE VIEW HISTORY: ??Altered consciousness with possible cerebral infarction. FINDINGS: ??AP upright view the chest was obtained. ??There is a prior study from 02/09/2013. Lungs are expanded and clear. ??Heart size and pulmonary vascular caliber is within normal limits for technique. ??The osseous structures are intact. Procedure Note Provider, MD Naheed - 11/30/2020 CHEST SINGLE VIEW HISTORY: Altered consciousness with possible cerebral infarction. FINDINGS: AP upright view the chest was obtained. There is a prior study from 02/09/2013. Lungs are expanded and clear. Heart size and pulmonary vascular caliberis within normal limits for technique. The osseous structures are intact. IMPRESSION: No active chest disease. THIS IS AN ELECTRONICALLY VERIFIED REPORT 06/03/2014 10:07 PM: Thom Asencio M.D. Thom Asencio M.D. RN:danilo 10:07 PM 10:07 PM NOR [EOD] Kelly Reaves MD IMG XR PROCEDURES Final R esult documented in this encounter Visit Diagnoses Diagnosis Poisoning by drug or medicinal substance Poisoning by unspecified drug or medicinal substance Altered mental status Accidental poisoning by drug Poisoning by unspecified drug or medicinal substance documented in this encounter
--- OUTSIDE RECORDS SUMMARY | 2024-07-20 15:49 | XMS_ITS | Encounter Summary ---
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 Gender Identity Not on file Sexual Orientation Straight 11/28/2020 9: 06 AM CDT documented as of this encounter Plan of Treatment Not on file documented as of this encounter Procedures Procedure Name Priority Date/Time Associated Diagnosis Comments FENTANYL CONFIRMATION, MS URINE Routine 11/16/2020 1:21 PM CDT DRUGS OF ABUSE SCREEN, URINE WITH REFLEX CONFIRMATION Routine 11/16/2020 1:21 PM CDT Illicit drug use OPIATES CONFIRMATION MS, URINE Routine 11/16/2020 1:21 PM CDT AMPHETAMINE, URINE, CONFIRMATION Routine 11/16/2020 1:21 PM CDT documented in this encounter Results * Opiates Confirmation, Urine (11/16/2020 1:21 PM CDT) Codeine Conf, Ur Does Not Confirm CutOff 50 ng/mL [facility] Comment:Testing performed by : [facility], [address] [place] [address] 6- Acetylmorphine Conf, Ur Does Not Confirm CutOff 10 ng/mL [facility] Comment:Testing performed by : [facility], [address] [place] [address] Hydrocodone Conf, Ur Does Not Confirm CutOff 50 ng/mL [facility] Comment:Testing performed by : [facility], [address] [place] [address] Morphine Conf, Ur Does Not Confirm CutOff 50 ng/mL [facility] Comment:Testing performed by : [facility], [address] [place] [address] Hydromorphone Conf, Ur Does Not Confirm CutOff 50 ng/mL [facility] Comment: Interpretive Data This test detects the presence or absence of drug compounds using LC Tandem mass spectrometry and is not intended to assess compliance with prescribed medications. While this test is highly specific, false positive and false negative results may occur in very rare circumstances. Contact the laboratory for consultation, if needed. Performance characteristics were determined by the [facility] in a manner consistent with CLIA requirement and has not been cleared or approved by the U.S. Food and Drug Administration. Current interpretive data was last revised 2020. Testing performed by: [facility], [address] [place] [address] Urine 11/16/2020 1:21 PM CDT 11/16/2020 7:39 PM CDT us Andi Eugene MD LAB URINE ORDERAB LES Final Result [facility] [address] Department [place] [address] * Fentanyl Confirmation, Urine (11/16/2020 1:21 PM CDT) Fentanyl Conf, Ur Does Not Confirm Cutoff 0.3ng/mL [facility] Comment:Testing performed by : [facility], [address] [place] [address] Acetylfentanyl Conf, Ur Does Not Confirm Cutoff 1 ng/mL [facility] Comment:Testing performed by : [facility], [address] [place] [address] Acrylfentanyl Conf, Ur Does Not Confirm Cutoff 1 ng/mL [facility] Comment:Testing performed by : [facility], [address] [place] [address] Furanylfentanyl Conf, Ur Does Not Confirm Cutoff 1 ng/mL [facility] Comment:Testing performed by : [facility], [address] [place] [address] Fentanyl Metabolite (Norfentanyl) Conf, Ur Does Not Confirm CutOff 5 ng/mL [facility] Comment: Interpretive Data This test detects the presence or absence of drug compounds using LC Tandem mass spectrometry and is not intended to assess compliance with prescribed medications. While this test is highly specific, false positive and false negative results may occur in very rare circumstances. Contact the laboratory for consultation, if needed. Performance characteristics were determined by the [facility] in a manner consistent with CLIA requirement and has not been cleared or approved by the U.S. Food and Drug Administration. Current interpretive data was last revised 2020. Testing performed by: [facility], [address] [place] [address] Urine 11/16/2020 1:21 PM CDT 11/16/2020 7:39 PM CDT us Andi Eugene MD LAB URINE ORDERAB LES Final Result [facility] [address] Department [place] [address] * Amphetamine Confirmation, Urine (11/16/2020 1:21 PM CDT) Amphetamine Conf, Ur Confirmed Positive CutOff 150ng/mL [facility] Comment:Testing performed by : [facility], [address] [place] [address] Methamphetamine Conf, Ur Confirmed Positive CutOff 150ng/mL [facility] Comment:Testing performed by : [facility], [address] [place] [address] MDA Conf, Ur Does Not Confirm CutOff 150ng/mL [facility] Comment:Testing performed by : [facility], [address] [place] [address] MDMA Conf, Ur Does Not Confirm CutOff 50 ng/mL [facility] Comment:Testing performed by : [facility], [address] [place]., [address] MDEA Conf, Ur Does Not Confirm CutOff 150ng/mL [facility] Comment:Testing performed by : [facility], [address] [place] [address] MBDB Conf, Ur Does Not Confirm CutOff 150ng/mL [facility] Comment: Interpretive Data This test detects the presence or absence of drug compounds using LC Tandem mass spectrometry. While this test is highly specific, false positive and false negative results may occur in very rare circumstances. Contact the laboratory for consultation, if needed. Performance characteristics were determined by the [facility] in a manner consistent with CLIA requirement and has not been cleared or approved by the U.S. Food and Drug Administration. Current interpretive data was last revised on 2020. Testing performed by: [facility], [address] [place] [address] Urine 11/16/2020 1:21 PM CDT 11/16/2020 7:39 PM CDT us Andi Eugene MD LAB URINE ORDERAB LES Final Result [facility] [address] Department of [employer] [place], [place] [phone] * (ABNORMAL) Drugs of Abuse Screen, Urine with Reflex Confirmation (11/16/2020 1:21 PM CDT) [facility] Amphetamine, ur Detected(A) CutOff 500ng/mL [facility] Comment: Interpretive Data - Amphetamines: ??Samples containing greater than 500 ng/mL d-methamphetamine ??or other cross-reacting amphetamine compounds are reported as positive. ??Amphetamine immunoassays are subject to significant false positive rates due to cross-reactivity of non-amphetamine drugs. Current Interpretive Data was last reviewed 2018. Barbiturates, ur Detected(A) CutOff 200ng/mL [facility] Comment: Interpretive Data - Barbiturates: ??Samples containing greater than 200 ng/mL secobarbital or other cross-reacting barbiturate compounds are reported as positive. ??False positive and false negative results are possible. Current Interpretive Data was last reviewed 2018. Benzodiazepines, ur Detected(A) CutOff 100ng/mL [facility] Comment: Interpretive Data - Benzodiazepines: ??Samples containing greater than 100 ng/mL nordiazepam or other cross-reacting compounds are reported as positive. ?? False positive and false negative results are possible. ?? Current Interpretive Data was last reviewed 2018. Cannabinoids, ur Not Detected CutOff 50 ng/mL [facility] Comment: Interpretive Data - Cannabinoids: ??Samples containing greater than 50 ng/mL delta-9 THC -COOH or other cross-reacting compounds are reported as positive. ??False positive and false negative results are possible. ?? Current Interpretive Data was last reviewed 2018. Cocaine, ur Not Detected CutOff 150ng/mL [facility] Comment: Interpretive Data - Cocaine: ??Samples containing greater than 150 ng/mL benzoylecgonine or other cross-reacting compounds are reported as positive. False positive and false negative results are possible. Current Interpretive Data was last reviewed 2018. Fentanyl, Ur Detected(A) Cutoff 1 ng/mL [facility] Comment: Interpretive Data - Fentanyls: ??Samples containing greater than 1 ng/mL fentanyl or other cross-reacting fentanyl compounds are reported as detected. ??False positive and false negative results are possible. Current Interpretive Data was last reviewed 2019. Methadone, ur Not Detected CutOff 300ng/mL [facility] Comment: Interpretive Data - Methadone: ??Samples containing greater than 300 ng/mL d,l-methadone or other cross-reacting compounds are reported as positive. ??False positive and false negative results are possible. Current Interpretive Data was last reviewed 2018. Opiates, ur Detected(A) CutOff 300ng/mL [facility] Comment: Interpretive Data - Opiates: ??Samples containing greater than 300 ng/mL morphine or other cross-reacting compounds are reported as positive. ??False positive and false negative results are possible. Current Interpretive Data was last reviewed 2018. Oxycodone, ur Not Detected CutOff 100ng/mL [facility] Comment: Interpretive Data - Oxycodone: ??Samples containing greater than 100 ng/mL oxycodone or other cross-reacting compounds are reported as positive. ??False positive and false negative results are possible. ?? Current Interpretive Data was last reviewed 2018. Phencyclidine, ur Not Detected CutOff 25 ng/mL [facility] Comment: Interpretive Data - Phencyclidine: ??Samples containing greater than 25 ng/mL phencyclidine or other cross-reacting compounds are reported as positive. ??False positive and false negative results are possible. ?? Current Interpretive Data was last reviewed 2018. Urine Creatinine 223 mg/dL [facility] Comment: Interpretive Data Urine Creatinine: < 10 mg/dL is extremely dilute = or > 10 but < 20 mg/dL is dilute = or > 20 mg/dL is normal Current Interpretive Data was last revised on 2017. Urine 11/16/2020 1:21 PM CDT 11/16/2020 2:26 PM CDT Narrative [facility] - 11/16/2020 3:03 PM CDT Drug of Abuse screening is performed by immunoassay for medical purposes only. ??This is not to be used for Pain Management purposes. ??If Detected, confirmation testing will be performed for Amphetamines, Cocaine, Fentanyl, Methadone, Opiates, Oxycodone or Phencyclidine. us Andi Eugene MD LAB URINE ORDERAB LES Final Result [facility] [address] Department [place] [address] documented in this encounter Visit Diagnoses Diagnosis Illicit drug use documented in this encounter Care Teams Delinquent Notice Machine Operator Relationship Specialty Start Date End Date Vicky Galindo MD PCP - General 11/16/20 06/02/24 documented as of this encounter
--- OUTSIDE RECORDS SUMMARY | 2024-07-20 15:49 | XMS_ITS | Encounter Summary ---
Author Organization [facility] Address [address] [place] [address] Phone Care Team Providers Care Manager Online Name Role Phone Baljeet Doran MD Primary Care Provider [phone]- [phone] Vicky Galindo MD Primary Care Provider [phone]- [phone] Reason for Referral * Diagnostic Imaging (Routine) - Closed Specialty Diagnoses / Procedures Referred By Contac t Referred To Contact Diagnoses Closed displaced fracture of acromial end of right clavicle, sequela Procedures XR Clavicle Right Andi Eugene MD [address] [facility] [place] [address] Phone: tel: fax: [facility] [address] [place] [address] Referral ID Status Reason Start Date Expiration Date Visits Re quested Visits Authorized [id number] Closed 11/13/2020 12/13/2021 1 1 Encounter Details Date Type Department Care Team (Late st Contact Info) Description 11/13/2020 Orders Only [facility] Orthopaedic Surgery [address] [facility] 12th [place] [address] [place] [address] Andi Eugene MD [address] [facility] [address] Closed displaced fracture of acromial end of right clavicle, sequela (Primary Dx) Social History Tobacco Use Types Packs/Day Years Used Date Smoking Tobacco: Never Smokeless Tobacco: Never Sex and Gender Information Value Date Recorded Sex Assigned at Not on file 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 Gender Identity Not on file Sexual Orientation Straight 11/28/2020 9: 06 AM CDT documented as of this encounter Plan of Treatment Not on file documented as of this encounter Results * XR Clavicle Right (11/16/2020 11:35 AM CDT) Anatomical Region Laterality Modality Clavicle, Chest Right Computed Radiogr aphy 11/16/2020 11:5 6 AM CDT Impressions 11/16/2020 [...] of acromial end of right clavicle, sequela Right shoulder pain, unspecified chronicity documented in this encounter Care Teams Manager Online Relationship Specialty Start Date End Date Baljeet Doran MD [address] [address] [place] [address] PCP - General Family Medicine 11/04/20 11/15/20 Vicky Galindo MD [address] [address] [place] [address] PCP - General 11/16/20 06/02/24 documented as of this encounter
--- OUTSIDE RECORDS SUMMARY | 2024-07-20 15:49 | XMS_ITS | Encounter Summary ---
Author Organization [facility] Healthcare Address [address] [place] [address] Care Team Providers Care Wood Finisher Apprentice Name Role Phone Baljeet Doran MD Primary Care Provider +1- [phone] Encounter Details Date Type Department Care Team (Latest Contact Info) Description 11/05/2020 3:40 PM CDT - 11/05/2020 11:59 PM CDT Hospital Encounter [facility] [address] [place] [address] Discharge Disposition: Discharge to home or self care Social History Tobacco Use Types Packs/Day Years Used Date Smoking Tobacco: Never Smokeless Tobacco: Never Sex and Gender Information Value Date Recorded Sex Assigned at Not on file 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 ??There will be no report generated by a [facility]iologist. Narrative [facility] - 11/05/2020 3:40 PM CDT EXAMINATION: ??Images For Reference Purposes Only Andi Eugene MD IMG XR PROCEDURES Final Result [facility] documented in this encounter Visit Diagnoses Not on filedocumented in this encounter Care Teams Wood Finisher Apprentice Relationship Specialty Start Date End Date Baljeet Doran MD [address] [address] PCP - General Family Medicine 11/04/20 11/15/20 documented as of this encounter
--- OUTSIDE RECORDS SUMMARY | 2024-07-20 15:49 | XMS_ITS | Encounter Summary ---
Author Organization [facility] Healthcare Address [address] [place] [address] Care Team Providers Care Co Director Name Role Phone Vicky Galindo MD Primary Care Provider +1- [phone] Reason for Referral * Diagnostic Imaging (Routine) - Closed Specialty Diagnoses / Procedures Referred By Contac t Referred To Contact Diagnoses Right shoulder pain, unspecified chronicity Procedures XR Shoulder Right 2 or More Views Andi Eugene MD [address] [place] [address] Phone: tel: fax: [address] [address] Referral ID Status Reason Start Date Expiration Date Visits Re quested Visits Authorized [id number] Closed 11/16/2020 12/16/2021 1 1 * Diagnostic Imaging (Routine) - Closed Specialty Diagnoses / Procedures Referred By Contac t Referred To Contact Diagnoses Closed displaced fracture of acromial end of right clavicle, sequela Procedures XR Clavicle Right Andi Eugene MD [address] [place] [address] Phone: tel: fax: [address] [phone] Referral ID Status Reason Start Date Expiration Date Visits Re quested Visits Authorized [id number] Closed 11/13/2020 12/13/2021 1 1 Reason for Visit * Diagnostic Imaging (Routine) - Closed Specialty Diagnoses / Procedures Referred By Contac t Referred To Contact Diagnoses Closed displaced fracture of acromial end of right clavicle, sequela Procedures XR Clavicle Right Andi Eugene MD [address] [facility] [place] [address] Phone: tel: fax: [address] [phone] Referral ID Status Reason Start Date Expiration Date Visits Re quested Visits Authorized [id number] Closed 11/13/2020 12/13/2021 1 1 Encounter Details Date Type Department Care Team (Latest Contact Info) Description 11/16/2020 11:20 AM CDT - 11/16/2020 11:59 PM CDT Hospital Encounter [facility] [address] [place] [address] Andi Eugene MD [address] [facility] [address] [place] [address] Closed displaced fracture of acromial end of right clavicle, sequela; Right shoulder pain, unspecified chronicity Discharge Disposition: Discharge to home or self care Social History Tobacco Use Types Packs/Day Years Used Date Smoking Tobacco: Never Smokeless Tobacco: Never Sex and Gender Information Value Date Recorded Sex Assigned at Not on file 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 Gender Identity Not on file Sexual Orientation [...] 2 (two) times a day 11/03/2020 11/24/2020 HYDROcodone-aceta minophen (NORCO) 5-325 mg per tablet [...] COMPLETE Schedule Routine, Read Routine (OP Routine) 11/16/2020 11:35 AM CDT Closed displaced fracture of acromial end of right clavicle, sequela XR SHOULDER RIGHT 2 OR MORE VIEWS Schedule Routine, Read Routine (OP Routine) 11/16/2020 11:34 AM CDT Right shoulder pain, unspecified chronicity documented in this encounter Results * XR [...] Eugene MD IMG XR PROCEDURES Final Result * XR Shoulder Right 2 or More Views (11/16/2020 11:34 AM CDT) Anatomical Region Laterality Modality Upper Extremities, Shoulder Right Comp uted Radiography 11/16/2020 11:5 6 AM CDT Impressions 11/16/2020 11:56 AM CDT Comminuted displaced and angulated right mid to distal clavicular fracture. Electronically signed by: Vishal Rojas M.D. Located Within [facility] 11/16/2020 11:56 AM CDT EXAMINATION: 1. Right [...] chronicity documented in this encounter Care Teams Co Director Relationship Specialty Start Date End Date Vicky Galindo MD PCP - General 11/16/20 06/02/24 documented as of this encounter
--- OUTSIDE RECORDS SUMMARY | 2024-07-20 15:49 | XMS_ITS | Encounter Summary ---
Author Organization [facility] Address [address] [place] [address] Phone Care Team Providers Care Qc Chemist Name Role Phone Vicky Galindo MD Primary Care Provider [phone]- [phone] Encounter Details Date Type Department Care Team (Late st Contact Info) Description 11/19/2020 Orders Only [facility] Orthopaedic Surgery [address] 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 Gender Identity Not on file Sexual Orientation Straight 11/28/2020 9: 06 AM CDT documented as of this encounter Miscellaneous Notes * Addendum Note - Spencer Galindo MA - 11/19/2020 12:02 PM CDTAddended by: SPENCER GALINDO on: 11/27/2020 09:57 AM Modules accepted: Orders documented in this encounter Plan of Treatment Not on file documented as of this encounter Results * Drugs of Abuse Screen, Urine with Reflex Confirmation (11/27/2020 10:32 AM CDT) Pathologist [facility] Amphetamine, ur Not Detected CutOff 500ng/mL [facility] Comment: Interpretive Data - Amphetamines: ??Samples containing greater than 500 ng/mL d-methamphetamine ??or other cross-reacting amphetamine compounds are reported as positive. ??Amphetamine immunoassays are subject to significant false positive rates due to cross-reactivity of non-amphetamine drugs. Current Interpretive Data was last reviewed 2018. Barbiturates, ur Not Detected CutOff 200ng/mL [facility] Comment: Interpretive Data - Barbiturates: ??Samples containing greater than 200 ng/mL secobarbital or other cross-reacting barbiturate compounds are reported as positive. ??False positive and false negative results are possible. Current Interpretive Data was last reviewed 2018. Benzodiazepines, ur Not Detected CutOff 100ng/mL [facility] Comment: Interpretive Data - Benzodiazepines: ??Samples containing greater than 100 ng/mL nordiazepam or other cross-reacting compounds are reported as positive. ?? False positive and false negative results are possible. ?? Current Interpretive Data was last reviewed 2018. Cannabinoids, ur Not Detected CutOff 50 ng/mL [facility] Comment: Interpretive Data - Cannabinoids: ??Samples containing greater than 50 ng/mL delta-9 THC -COOH or other cross-reacting compounds are reported as positive. ??False positive and false negative results are possible. ?? Current Interpretive Data was last reviewed 2018. Cocaine, ur Not Detected CutOff 150ng/mL [facility] Comment: Interpretive Data - Cocaine: ??Samples containing greater than 150 ng/mL benzoylecgonine or other cross-reacting compounds are reported as positive. False positive and false negative results are possible. Current Interpretive Data was last reviewed 2018. Fentanyl, Ur Not Detected Cutoff 1 ng/mL [facility] Comment: Interpretive Data - Fentanyls: ??Samples containing greater than 1 ng/mL fentanyl or other cross-reacting fentanyl compounds are reported as detected. ??False positive and false negative results are possible. Current Interpretive Data was last reviewed 2019. Methadone, ur Not Detected CutOff 300ng/mL [facility] Comment: Interpretive Data - Methadone: ??Samples containing greater than 300 ng/mL d,l-methadone or other cross-reacting compounds are reported as positive. ??False positive and false negative results are possible. Current Interpretive Data was last reviewed 2018. Opiates, ur Not Detected CutOff 300ng/mL [facility] Comment: Interpretive Data - Opiates: ??Samples containing greater than 300 ng/mL morphine or other cross-reacting compounds are reported as positive. ??False positive and false negative results are possible. Current Interpretive Data was last reviewed 2018. Oxycodone, ur Not Detected CutOff 100ng/mL [facility] Comment: Interpretive Data - Oxycodone: ??Samples containing greater than 100 ng/mL oxycodone or other cross-reacting compounds are reported as positive. ??False positive and false negative results are possible. ?? Current Interpretive Data was last reviewed 2018. Phencyclidine, ur Not Detected CutOff 25 ng/mL [facility] Comment: Interpretive Data - Phencyclidine: ??Samples containing greater than 25 ng/mL phencyclidine or other cross-reacting compounds are reported as positive. ??False positive and false negative results are possible. ?? Current Interpretive Data was last reviewed 2018. Urine Creatinine 76 mg/dL [facility] Comment: Interpretive Data Urine Creatinine: < 10 mg/dL is extremely dilute = or > 10 but < 20 mg/dL is dilute = or > 20 mg/dL is normal Current Interpretive Data was last revised on 2017. Urine 11/27/2020 10:3 2 AM CDT 11/27/2020 10:32 AM CDT Narrative [facility] - 11/27/2020 11:00 AM CDT Drug of Abuse screening is performed by immunoassay for medical purposes only. ??This is not to be used for Pain Management purposes. ??If Detected, confirmation testing will be performed for Amphetamines, Cocaine, Fentanyl, Methadone, Opiates, Oxycodone or Phencyclidine. Andi Eugene MD LAB URINE ORDERAB LES Final Result [facility] [address] Department [place] [address] documented in this encounter Visit Diagnoses Diagnosis Illicit drug use- Primary Illicit drug use documented in this encounter Care Teams Qc Chemist Relationship Specialty Start Date End Date Vicky Galindo MD PCP - General 11/16/20 06/02/24 documented as of this encounter
--- OUTSIDE RECORDS SUMMARY | 2024-07-20 15:49 | XMS_ITS | Encounter Summary ---
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
--- OUTSIDE RECORDS SUMMARY | 2024-07-20 15:49 | XMS_ITS | Encounter Summary ---
Author Organization [facility] Address [address] [place] [address] Care Team Providers Care Coding Technician Name Role Phone Vicky Galindo MD Primary Care Provider [phone]- [phone] Encounter Details Date Type Department Care Team (Late st Contact Info) Description 11/27/2020 10:00 AM CDT Lab [address] [phone] Andi Eugene MD [address] [facility] [address] [place], [place] [id number] Illicit drug use Discharge Disposition: Discharge to home or self care Social History Tobacco Use Types Packs/Day Years Used Date Smoking Tobacco: Never Smokeless Tobacco: Never Sex and Gender Information Value Date Recorded Sex Assigned at Not on file 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 Gender Identity Not on file Sexual Orientation Straight 11/28/2020 9: 06 AM CDT documented as of this encounter Discharge Disposition Disposition Code Departure Means Destination Discharge to home or self care documented in this encounter Plan of Treatment Not on file documented as of this encounter Procedures Procedure Name Priority Date/Time Associated Diagnosis Comments DRUGS OF ABUSE SCREEN, URINE WITH REFLEX CONFIRMATION Routine 11/27/2020 10:32 AM CDT Illicit drug use documented in this encounter Results * Drugs of Abuse Screen, Urine with Reflex Confirmation (11/27/2020 10:32 AM CDT) Amphetamine, ur Not Detected CutOff 500ng/mL [facility] Comment: Interpretive Data - Amphetamines: ??Samples containing greater than 500 ng/mL d-methamphetamine ??or other cross-reacting amphetamine compounds are reported as positive. ??Amphetamine immunoassays are subject to significant false positive rates due to cross-reactivity of non-amphetamine drugs. Current Interpretive Data was last reviewed 2018. Barbiturates, ur Not Detected CutOff 200ng/mL [facility] Comment: Interpretive Data - Barbiturates: ??Samples containing greater than 200 ng/mL secobarbital or other cross-reacting barbiturate compounds are reported as positive. ??False positive and false negative results are possible. Current Interpretive Data was last reviewed 2018. Benzodiazepines, ur Not Detected CutOff 100ng/mL [facility] Comment: Interpretive Data - Benzodiazepines: ??Samples containing greater than 100 ng/mL nordiazepam or other cross-reacting compounds are reported as positive. ?? False positive and false negative results are possible. ?? Current Interpretive Data was last reviewed 2018. Cannabinoids, ur Not Detected CutOff 50 ng/mL [facility] Comment: Interpretive Data - Cannabinoids: ??Samples containing greater than 50 ng/mL delta-9 THC -COOH or other cross-reacting compounds are reported as positive. ??False positive and false negative results are possible. ?? Current Interpretive Data was last reviewed 2018. Cocaine, ur Not Detected CutOff 150ng/mL [facility] Comment: Interpretive Data - Cocaine: ??Samples containing greater than 150 ng/mL benzoylecgonine or other cross-reacting compounds are reported as positive. False positive and false negative results are possible. Current Interpretive Data was last reviewed 2018. Fentanyl, Ur Not Detected Cutoff 1 ng/mL [facility] Comment: Interpretive Data - Fentanyls: ??Samples containing greater than 1 ng/mL fentanyl or other cross-reacting fentanyl compounds are reported as detected. ??False positive and false negative results are possible. Current Interpretive Data was last reviewed 2019. Methadone, ur Not Detected CutOff 300ng/mL [facility] Comment: Interpretive Data - Methadone: ??Samples containing greater than 300 ng/mL d,l-methadone or other cross-reacting compounds are reported as positive. ??False positive and false negative results are possible. Current Interpretive Data was last reviewed 2018. Opiates, ur Not Detected CutOff 300ng/mL [facility] Comment: Interpretive Data - Opiates: ??Samples containing greater than 300 ng/mL morphine or other cross-reacting compounds are reported as positive. ??False positive and false negative results are possible. Current Interpretive Data was last reviewed 2018. Oxycodone, ur Not Detected CutOff 100ng/mL [facility] Comment: Interpretive Data - Oxycodone: ??Samples containing greater than 100 ng/mL oxycodone or other cross-reacting compounds are reported as positive. ??False positive and false negative results are possible. ?? Current Interpretive Data was last reviewed 2018. Phencyclidine, ur Not Detected CutOff 25 ng/mL [facility] Comment: Interpretive Data - Phencyclidine: ??Samples containing greater than 25 ng/mL phencyclidine or other cross-reacting compounds are reported as positive. ??False positive and false negative results are possible. ?? Current Interpretive Data was last reviewed 2018. Urine Creatinine 76 mg/dL [facility] Comment: Interpretive Data Urine Creatinine: < 10 mg/dL is extremely dilute = or > 10 but < 20 mg/dL is dilute = or > 20 mg/dL is normal Current Interpretive Data was last revised on 2017. Urine 11/27/2020 10:3 2 AM CDT 11/27/2020 10:32 AM CDT Narrative [facility] - 11/27/2020 11:00 AM CDT Drug of Abuse screening is performed by immunoassay for medical purposes only. ??This is not to be used for Pain Management purposes. ??If Detected, confirmation testing will be performed for Amphetamines, Cocaine, Fentanyl, Methadone, Opiates, Oxycodone or Phencyclidine. Andi Eugene MD LAB URINE ORDERAB LES Final Result [facility] [address] [place] [address] documented in this encounter Visit Diagnoses Diagnosis Illicit drug use documented in this encounter Care Teams Coding Technician Relationship Specialty Start Date End Date Vicky Galindo MD PCP - General 11/16/20 06/02/24 documented as of this encounter
--- OUTSIDE RECORDS SUMMARY | 2024-07-20 15:49 | XMS_ITS | Encounter Summary ---
Author Organization [facility] Care Team Providers Care Director Of Maternity Services Name Role Phone Unavailable Primary Care Provider Unavailabl e Encounter Details Date Type Department Care Team (Latest Contact Info) Description 02/10/2013 2:43 PM CDT - 02/26/2013 6:56 PM CDT Hospital Encounter [facility] Estela Mariee MD [address] [place] [address] Rhabdomyolysis; Acute renal failure with lesion of tubular necrosis (CMS/HCC) (HCC); Acidosis; Compartment syndrome of upper extremity, traumatic (HCC); Sedative, hypnotic or anxiolytic dependence, continuous abuse; Other secondary thrombocytopenia; Drug withdrawal (HCC); Contusion of forearm; Fall; Place of occurrence, public building; Edema; Anemia; Edema of male genital organs; Constipation; Personal history of allergy to penicillin; Essential hypertension; Elevation of level of transaminase and lactic acid dehydrogenase (LDH); Opioid abuse (HCC); Nonspecific (abnormal) findings on radiological and other examination of other intrathoracic organs Social History Tobacco Use Types Packs/Day Years Used Date Smoking Tobacco: Never Assessed Sex and Gender Information Value Date Recorded Sex Assigned at Not on file 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 Gender Identity Not on file Sexual Orientation Straight 11/28/2020 9: 06 AM CDT documented as of this encounter Last Filed Vital Signs Vital Sign Reading Time Taken Comments Blood Pressure 144/96 02/26/2013 2:35 PM CDT Pulse 104 02/26/2013 2:35 PM CDT Temperature - - Respiratory Rate - - Oxygen Saturation 95% 02/26/2013 2:35 PM CDT Inhaled Oxygen Concentration - - Weight 111.8 kg (246 lb 9.4 oz) 02/16/2013 5:00 AM CDT Height 175.3 cm (5' 9 ) 02/10/2013 2:56 PM CDT Body Mass Index 36.41 02/10/2013 2:56 PM CDT documented in this encounter Consult Notes * Provider, MD Naheed - 2013 12:00 AM CDT Patient: Giovana Lebron Reg No: [id number] [facility] #: [id number] Admit Dt.: 02/10/2013 : 1980 Room No: [id number] Attending: Medicine Medicine Consulting: Yamile Muñoz M.D. Dictating: Dick Montiel M.D. Service Dt: 2013 CONSULTATION REPORT PHYSICIAN REQUESTING CONSULTATION: Ysa Addison MD. SERVICE REQUESTING CONSULTATION: Medicine. REASON FOR CONSULTATION: Acute kidney injury. CHIEF COMPLAINT: Rhabdomyolysis. BRIEF HISTORY: Mr. Lebron is a 33-year-old white male with known history of Xanax and heroine abuse who presents from outside hospital. He initially was found down in a hotel room after partying. He presented with a crush injury. He was injured on the left forearm on 02/07/13 after ingestion. At the outside hospital, he was given Narcan and found to have a creatinine of 2.1 and a CK of 60,000. He received fluids at the outside hospital along with Vancomycin and Zosyn. His initial echocardiogram was suggestive of possible infective endocarditis, because or which, he was transferred to our hospital. On arrival, his creatinine was 4.35; however, creatinine has come up progressively to 8.96 at present. His repeat echocardiogram at our hospital is negative for infective endocarditis. Though he was initially on Vancomycin and Meropenem, they have been held. He has been getting a lot of fluids for his rhabdomyolysis but today it has been stopped because he has started developing swelling around his testicle and legs. He, however, denies shortness of breath. He also has had a fasciotomy done in the left arm for compartmental syndrome. PAST MEDICAL HISTORY: 1. Anxiety disorder. 2. Gastroesophageal reflux disease. MEDICATIONS: His current medications are as follows: 1. Carvedilol 12.5 mg twice a day. 2. Docusate sodium 100 mg twice a day. 3. Esomeprazole 20 daily. 4. Folic acid 1 daily. 5. Lorazepam 1 every 6 hours. 6. Senna 2 tabs twice a day. 7. Thiamine 100 mg daily. ALLERGIES: 1. Codeine. 2. Penicillin. FAMILY HISTORY: Reviewed and non-contributory. SOCIAL HISTORY: History of smoking in the past. History of alcohol, 6-7 beers at a particular time. History of heroine abuse and Xanax abuse, used to take up to 50 pills of Xanax a day. REVIEW OF SYSTEMS: He has constipation, complaining of edema in his testicles. No shortness of breath. All other review of systems apart from the ones given above are negative. PHYSICAL EXAMINATION: Vital Signs: Temperature 36.5, heart rate 73, blood pressure 150/98, respiratory rate 18, oxygen saturation 96% on room air, urine output 1.1 liters. HEENT: Eyes - pupils are equal, round and reactive to light. Chest: S1S2 normal, no murmurs, rubs or gallops. Lungs: Clear to auscultation. Abdomen: Soft, non-tender, non-distended, bowel sounds present. Genitourinary: He has swollen testicles. Skin: No evidence of edema. Extremities: He has a left sided splint with a dressing at the surgical site. Bilateral 2+ pitting edema. Neurologic: Alert, appropriate mood. Psychiatric: Appropriate affect. Skin: No rash LABORATORY AND X-RAY DATA: BMP - sodium 136, potassium 4.5, chloride 109, bicarb 18, BUN 55, creatinine 8.96, blood glucose 103. CBC - white blood cell count 9.6, hemoglobin 11.2, platelets 115. CK 66,365 on admission. Creatinine on initial presentation at the outside hospital was 2.1. Urinalysis is 0.004 specific gravity, 1+ protein, 2+ blood, 5 red blood cells. His urine sediment from today was planned. Ultrasound was right 12.2 cm, left 15.74 cm, no evidence of hydronephrosis. His highest Vancomycin level was 43.5. Chest x-ray was positive for a symmetric left pulmonary edema. IMPRESSION AND RECOMMENDATIONS: Acute kidney injury: Likely secondary to rhabdomyolysis. His creatinine is rapidly rising but he is nonoliguric at this time and he does not have an electrolyte disturbance or evidence of pulmonary edema. He does not require dialysis at this time.We checked urine sediment which is bland. Recommend checking urine Na and FeNa We recommend strict 1/O monitoring Volume Overload: At this time he has established INDER. We recommend IV loop diuretics to try and maintain his urine output and prevent further volume overload. If his renal function does not improve in the next 2-3 days he might need dialysis. Metabolic acidosis: Likely secondary to INDER. Continue to monitor. Can start oral NaHCO3 650mg tid. Enlarged kidney: It's unusual to see enlarged kidneys in ATN. He does have evidence of proteinuria and hematuria and therefore we recommend serological work up to rule out lupus, vasculitis etc. We will consider a kidney biopsy if his renal function does not improve in the next 2-3 days. Reviewed by Dick Montiel M.D. 02/17/2013 12:55 P Dick Montiel M.D. Edited and Electronically Signed By Yamile Muñoz M.D. 02/22/2013 01:45 P Yamile Muñoz M.D. SA/arunav #[id number] Editing MT: TD: 2013 18:16:00 cc: Tasha Gore M.D. Medicine Medicine Yamile Muñoz M.D. documented in this encounter Miscellaneous Notes * Op Note - Provider, MD Naheed - 02/12/2013 12:00 AM CDT Patient: Giovana Lebron Reg No: [id number] Critical [facility] #: [id number] Admit Dt.: 02/10/2013 : 1980 Pt Type: 100 Room No: [id number] Attending: Medicine Medicine Surgeon: Tate Ivan M.D. Dictating: Tate Ivan M.D. Service Dt: 02/12/2013 OPERATIVE REPORT ADDENDUM: I participated in the boyer portions of this procedure and was otherwise immediately available including the extended carpel tunnel incision across the flexor tendon crease into the distal forearm, division of transverse carpal ligament, inspection of median nerve, thenar fasciotomy to the longitudinal 4 cm incision and then dorsal hand fasciotomies over the index and long metacarpals followed by a dorsal forearm fasciotomy extending for 13 cm along the dorsal aspect of the forearm and a volar ulnar fasciotomy of the forearm. Irrigation and hemostasis. Electronically Signed By Tate Iavn M.D. 02/19/2013 11:44 A Tate Ivan M.D. [facility] #[id number] Editing MT: TD: 02/13/2013 12:12:00 cc: Tate Ivan M.D. Medicine Medicine * Op Note - Provider, MD Naheed - 02/12/2013 12:00 AM CDT Patient: Giovana Lebron Reg No: [id number] Critical Access Hospital #: [id number] Admit Dt.: 02/10/2013 : 1980 Pt Type: [facility] Room No: [id number] Attending: Medicine Medicine Surgeon: Tate Ivan M.D. Dictating: Valentina Pedraza M.D. Service Dt: 02/12/2013 OPERATIVE REPORT FIRST GRAIN BLENDER: Sharon Wolfe M.D. SECOND/THIRD GRAIN BLENDER: Tasha Fortune, MS4 PREOPERATIVE DIAGNOSIS (ES): Left forearm and hand compartment syndrome. POSTOPERATIVE DIAGNOSIS (ES): Left forearm and hand compartment syndrome. NAME OF OPERATION: 1. Left forearm fasciotomies, volar and dorsal. 2. Left hand fasciotomies, including thenar compartment and dorsal interossei. 3. Left extended carpal tunnel release. INDICATIONS FOR PROCEDURE: Giovana Lebron is a 32-year-old male who recently was unconscious due to presumed drug overdose. He was admitted to [facility] on Monday, where he was noted to have flexed posturing of the fingers on the left, and no longer had any pain, consistent with a late presentation of compartment syndrome. He had remaining flexor function of the digits and thumb, and a MRI was obtained to evaluate viability of muscle in the forearm. This revealed viability in the dorsal and volar compartments, but significant edema and rhabdomyolysis. He also had a positive Tinel's, and his two-point discrimination was out in all fingers. After a discussion of risks, benefits, potential complications, and alternative treatments, informed consent was obtained to proceed with the above surgical procedures. OPERATIVE FINDINGS: There was substantial subcutaneous edema diffusely throughout the volar and dorsal hand and forearm. The dorsal interossei muscles were released. These muscles were pink superficially, but dusky deeper within. We performed thenar compartment release, showing viable, pink muscle, with milder duskiness deep within the muscle belly of APB. Volar and dorsal muscle compartments revealed edematous muscle, but this was pink, with better bleeding than the intrinsic hand muscles, and no duskiness. An extended carpal tunnel release was performed, and the median nerve appeared injected and edematous. DESCRIPTION OF PROCEDURE: The patient was brought to the preoperative holding area, and informed consent was placed in the chart. The appropriate surgical site was marked. He was taken back to the operating room, where a multidisciplinary surgical timeout was performed. Perioperative antibiotics were given within one hour of incision. He was positioned, draped, and prepped in the usual sterile fashion after placement of a nonsterile upper arm tourniquet. First, attention was turned to extensile carpal tunnel release. An incision was taken through skin and subcutaneous tissue using a 15 blade knife in a curvilinear fashion around the thenars and ulnarward curve across the wrist flexion crease into the distal forearm. Tenotomy scissors were used to dissect down to the median nerve in the proximal aspect of the wound, where the median nerve was identified. Tissues superficial to the nerve were taken down from proximal to distal until the transverse carpal ligament was encountered. This was incised with a knife, using a hemostat deep to the ligament to provide a protective space between the knife blade and the nerve. This median nerve release was continued distally into the palm. We observed directly the complete transection of the transverse carpal ligament, and the nerve appeared quite injected and edematous, but intact. Next, attention was turned to thenar compartment fasciotomy. An incision was made with a knife through skin and subcutaneous tissue over the APB. Once the fascia was encountered, this too was incised with a knife for a total of approximately 5 centimeters. This muscle appeared pink superficially, but there was mild duskiness within. There was no bleeding noted from the muscle, albeit, with the tourniquet up. Next, attention was turned to the dorsum of the hand. Two longitudinal incisions were made through skin and subcutaneous tissue in line with the index and ring metacarpals. The incision about the index metacarpal was taken radially, and superficial branches of the radial nerve were identified and protected. Its fascia was incised. Next, the incision was shifted ulnarly to release the interosseous muscle. Next, in a similar fashion, we retracted the incision in line with the ring metacarpal radially and then ulnarly to release the remaining two dorsal interossei. These muscles were pink superficially, but slightly dusky deep within. Next, attention was turned to the dorsal forearm fasciotomy. An approximately 14 centimeter incision was made longitudinally from a point 1 centimeter anterior to the lateral epicondyle, headed toward the center of the wrist. This was taken through the skin, subcutaneous tissue, and then through extensor compartment fascia sharply with a knife, taking care to maintain hemostasis as crossing minor vessels were encountered. Next, attention was turned to the volar fasciotomies. A volar-ulnar incision was made with approximately 14 centimeters in length, in line with the ulnar wrist in a point 2 centimeters and medial to the medial epicondyle. This was taken through skin, subcutaneous tissue, and then fascia sharply with a knife, taking care to protect traversing nerve, and cauterizing minor veins as we proceeded with dissection. Both the dorsal and volar forearm fasciotomies were carried proximally and distally beyond the extent of the skin excision, under direct visualization. Both the volar and dorsal compartment muscles were found to be healthy and pink, with no duskiness, and they both demonstrated some punctate bleeding. The wounds were copiously irrigated with sterile saline. All wounds were closed with minimal tension with the exception of the volar compartment that had a moderate amount of tension but was easily closed with nylon sutures. The decision was made to close this primarily rather than to come back for a skin graft, as we were comfortable with the amount of tension here. A sterile soft dressing was placed, followed by a volar forearm-based resting splint. The tourniquet was then deflated. The patient aroused from anesthesia without incident and was taken to the Post-Anesthesia Care Unit in stable condition. ESTIMATED BLOOD LOSS: 25 mL. INTRAOPERATIVE FLUIDS: 500 mL crystalloid. TOURNIQUET TIME: 1 hour, 2 minutes at 280 mmHg. SPONGE/INSTRUMENT/NEEDLE COUNTS: Correct times two. ATTENDING PRESENCE STATEMENT: Please refer to Dr. Ivan's attending presence statement which has been dictated separately. Valentina Pedraza M.D. Electronically Signed By Tate Ivan M.D. 02/19/2013 11:44 A Tate Ivan M.D. [facility]/ryan #[id number] Editing MT: TD: 02/13/2013 13:05:00 cc: Tasha Hutton M.D. Medicine Medicine documented in this encounter Plan of Treatment Not on file documented as of this encounter Procedures Procedure Name Priority Date/Time Associated Diagnosis Comments SERUM MAGNESIUM Routine 02/26/2013 12:51 AM CDT PLASMA BASIC METABOLIC PANEL Routine 02/26/2013 12:51 AM CDT DISCHARGE LABORATORY CUMULATIVE REPORT Routine 02/26/2013 12:00 AM CDT SERUM MAGNESIUM Routine 02/24/2013 9:36 PM CDT PLASMA BASIC METABOLIC PANEL Routine 02/24/2013 9:36 PM CDT SERUM MAGNESIUM Routine 02/23/2013 9:28 PM CDT PLASMA BASIC METABOLIC PANEL Routine 02/23/2013 9:28 PM CDT PLASMA BASIC METABOLIC PANEL Routine 02/23/2013 10:09 AM CDT PLASMA BASIC METABOLIC PANEL Routine 02/22/2013 7:11 AM CDT SERUM CREATINE KINASE (CK) Routine 02/20 8:58 PM CDT PLASMA BASIC METABOLIC PANEL Routine 02/20/2013 8:58 PM CDT PLASMA BASIC METABOLIC PANEL Routine 02/19/2013 9:25 PM CDT US SCROTUM Routine 02/19/2013 10:29 AM CDT SERUM CREATINE KINASE (CK) Routine 02/18 10:13 PM CDT PLASMA BASIC METABOLIC PANEL Routine 02/18/2013 10:13 PM CDT BLOOD CELL COUNT Routine 02/18/2013 7:06 AM CDT BLOOD ABO, RH, INDIRECT AB SCREEN Routine 02/18/2013 7:06 AM CDT PLASMA BASIC METABOLIC PANEL Routine 02/17/2013 10:00 PM CDT BLOOD CELL COUNT (CBC) Routine 3 10:00 PM CDT PLASMA BASIC METABOLIC PANEL Routine 02/17/2013 6:27 AM CDT SERUM URIC ACID Routine 02/15/2013 10:41 PM CDT SERUM CREATINE KINASE (CK) Routine 02/15 10:41 PM CDT SERUM ANTINUCLEAR AB (APOORVA) Routine 02/15 10:41 PM CDT SERUM ANTINEUTROPHIL CYTOPLASMIC AB (ANCA) Routine 02/15/2013 10:41 PM CDT PLASMA BASIC METABOLIC PANEL Routine 02/15/2013 10:41 PM CDT BLOOD CALCIUM, IONIZED Routine 3 10:41 PM CDT BLOOD CELL COUNT (CBC) Routine 3 10:41 PM CDT SERUM COMPLEMENT C4, QUANTITATIVE Routine 02/15/2013 1:45 PM CDT SERUM COMPLEMENT C3, QUANTITATIVE Routine 02/15/2013 1:45 PM CDT SERUM COMPLEMENT C2 Routine 02/15/2013 1 :45 PM CDT SERUM CALCIUM, IONIZED Routine 3 8:07 AM CDT PLASMA COMPREHENSIVE METABOLIC PANEL Routine 2013 9:17 PM CDT BLOOD CELL COUNT (CBC) Routine 3 9:17 PM CDT URINE (AEROBIC) CULTURE, CDR Routine 2013 6:33 PM CDT URINE MICROSCOPY Routine 2013 6:33 PM CDT URINALYSIS Routine 2013 6:33 PM CDT URINE PROTEIN Routine 2013 3:46 PM CDT URINE CREATININE Routine 2013 3:46 PM CDT US RETROPERITONEAL COMPLETE Routine 2013 2:46 PM CDT PLASMA BASIC METABOLIC PANEL Routine 2013 1:06 PM CDT ALL MICROBIOLOGY REPORT SECTION Routine 2013 12:00 AM CDT SERUM CREATINE KINASE (CK) Routine 02/13 8:46 PM CDT PLASMA PROTHROMBIN TIME (PT) Routine 02/13/2013 8:46 PM CDT PLASMA HEPATIC FUNCTION PANEL Routine 02/13/2013 8:46 PM CDT PLASMA FIBRINOGEN Routine 02/13/2013 8:4 6 PM CDT PLASMA BASIC METABOLIC PANEL Routine 02/13/2013 8:46 PM CDT PLASMA AMYLASE Routine 02/13/2013 8:46 PM CDT BLOOD CELL COUNT (CBC) Routine 3 8:46 PM CDT XR CHEST 1 VIEW Routine 02/13/2013 6:16 PM CDT VLWU DUPLEX SCAN OF AORTA; INFERIOR VENA CAVA, ILIAC, COMPLETE BILATERAL Routine 02/13/2013 9:36 AM CDT CLOSTRIDIUM DIFFICILE TOXIN, CDR Routine 02/13/2013 12:59 AM CDT SERUM MAGNESIUM Routine 02/13/2013 12:54 AM CDT SERUM CREATINE KINASE (CK) Routine 02/13 12:54 AM CDT PLASMA PROTHROMBIN TIME (PT) Routine 02/13/2013 12:54 AM CDT PLASMA PHOSPHORUS Routine 02/13/2013 12: 54 AM CDT PLASMA PARTIAL THROMBOPLASTIN TIME (PTT) Routine 02/13/2013 12:54 AM CDT PLASMA BASIC METABOLIC PANEL Routine 02/13/2013 12:54 AM CDT BLOOD RETICULOCYTE COUNT Routine 013 12:54 AM CDT BLOOD CELL COUNT (CBC) Routine 3 12:54 AM CDT ELECTROCARDIOGRAPHY (ECG) 02/13/2013 ALL MICROBIOLOGY REPORT SECTION Routine 02/13/2013 12:00 AM CDT PLASMA BASIC METABOLIC PANEL Routine 02/12/2013 5:56 PM CDT EXTRA SLIDE PREPARATION Routine 02/13/20 13 5:56 PM CDT BLOOD POTASSIUM, MIXED VENOUS Routine 02/12/2013 5:56 PM CDT MRI UPPER EXTREMITY JOINT WO CONTRAST Routine 02/12/2013 5:05 PM CDT URINE MICROSCOPY Routine 02/12/2013 3:29 PM CDT URINALYSIS Routine 02/12/2013 3:29 PM CDT MRSA SURVEILLANCE CULTURE, CDR Routine 02/12/2013 11:41 AM CDT SERUM VANCOMYCIN DRUG LEVEL Routine 02/12/2013 9:59 AM CDT PLASMA BASIC METABOLIC PANEL Routine 02/12/2013 9:59 AM CDT CRITICAL RESULT CALL BACK Routine 2012 9:59 AM CDT XR CHEST 1 VIEW Routine 02/12/2013 5:16 AM CDT ALL MICROBIOLOGY REPORT SECTION Routine 02/12/2013 12:00 AM CDT SERUM MAGNESIUM Routine 02/11/2013 11:44 PM CDT SERUM CREATINE KINASE (CK) Routine 02/11 11:44 PM CDT PLASMA PHOSPHORUS Routine 02/11/2013 11: 44 PM CDT PLASMA BASIC METABOLIC PANEL Routine 02/11/2013 11:44 PM CDT BLOOD CELL COUNT (CBC) Routine 3 11:44 PM CDT SERUM CREATINE KINASE (CK) MB Routine 02/11/2013 5:09 PM CDT PLASMA BASIC METABOLIC PANEL Routine 02/11/2013 5:09 PM CDT SERUM LACTATE DEHYDROGENASE (LDH) Routine 02/11/2013 12:18 PM CDT SERUM CREATINE KINASE (CK) MB Routine 02/11/2013 12:18 PM CDT PLASMA BASIC METABOLIC PANEL Routine 02/11/2013 12:18 PM CDT PLASMA AMYLASE Routine 02/11/2013 12:18 PM CDT SERUM TROPONIN I Routine 02/11/2013 8:26 AM CDT SERUM LACTATE DEHYDROGENASE (LDH) Routine 02/11/2013 8:26 AM CDT SERUM CREATINE KINASE (CK) MB Routine 02/11/2013 8:26 AM CDT SERUM BILIRUBIN, DIRECT Routine 02/12/20 13 8:26 AM CDT PLASMA PROTHROMBIN TIME (PT) Routine 02/11/2013 8:26 AM CDT PLASMA COMPREHENSIVE METABOLIC PANEL Routine 02/11/2013 8:26 AM CDT PLASMA AMYLASE Routine 02/11/2013 8:26 AM CDT XR CHEST 1 VIEW Routine 02/11/2013 4:31 AM CDT SERUM URIC ACID Routine 02/11/2013 4:11 AM CDT SERUM LACTATE DEHYDROGENASE (LDH) Routine 02/11/2013 4:11 AM CDT SERUM HEPATITIS PANEL Routine 02/11/2013 4:11 AM CDT SERUM CREATINE KINASE (CK) MB Routine 02/11/2013 4:11 AM CDT PLASMA COMPREHENSIVE METABOLIC PANEL Routine 02/11/2013 4:11 AM CDT PLASMA BASIC METABOLIC PANEL Routine 02/11/2013 4:11 AM CDT PLASMA AMYLASE Routine 02/11/2013 4:11 AM CDT URINE (AEROBIC) CULTURE, CDR Routine 02/11/2013 1:00 AM CDT PLASMA PROTHROMBIN TIME (PT) Routine 02/11/2013 12:58 AM CDT PLASMA PARTIAL THROMBOPLASTIN TIME (PTT) Routine 02/11/2013 12:58 AM CDT SERUM URIC ACID Routine 02/11/2013 12:56 AM CDT SERUM TROPONIN I Routine 02/11/2013 12:5 6 AM CDT SERUM MAGNESIUM Routine 02/11/2013 12:56 AM CDT SERUM LACTATE DEHYDROGENASE (LDH) Routine 02/11/2013 12:56 AM CDT SERUM CREATINE KINASE (CK) MB Routine 02/11/2013 12:56 AM CDT SERUM CALCIUM, IONIZED Routine 3 12:56 AM CDT PLASMA PHOSPHORUS Routine 02/11/2013 12: 56 AM CDT PLASMA LACTIC ACID Routine 02/11/2013 12 :56 AM CDT PLASMA HEPATIC FUNCTION PANEL Routine 02/11/2013 12:56 AM CDT PLASMA BASIC METABOLIC PANEL Routine 02/11/2013 12:56 AM CDT PLASMA AMYLASE Routine 02/11/2013 12:56 AM CDT BLOOD CELL COUNT (CBC) Routine 3 12:56 AM CDT ELECTROCARDIOGRAPHY (ECG) 02/11/2013 ALL MICROBIOLOGY REPORT SECTION Routine 02/11/2013 12:00 AM CDT ABDOMINAL RADIOGRAPHY, FRONTAL (AP) Routine 02/10/2013 9:31 PM CDT BLOOD CULTURE, CDR Routine 02/10/2013 9: 00 PM CDT SERUM URIC ACID Routine 02/10/2013 9:00 PM CDT SERUM LACTATE DEHYDROGENASE (LDH) Routine 02/10/2013 9:00 PM CDT SERUM HUMAN IMMUNODEFICIENCY VIRUS (HIV) 1, 2 AB Routine 02/10/2013 9:00 PM CDT SERUM HEPATITIS C VIRAL RNA, PCR, QUANTITATIVE Routine 02/10/2013 9:00 PM CDT SERUM CREATINE KINASE (CK) Routine 02/10 9:00 PM CDT PLASMA HEPATIC FUNCTION PANEL Routine 02/10/2013 9:00 PM CDT BLOOD GLUCOSE, POC Routine 02/10/2013 7: 23 PM CDT BLOOD CULTURE, CDR Routine 02/10/2013 4: 46 PM CDT XR WRIST 3+ VW Routine 02/10/2013 4:36 PM CDT BLOOD CHECK SAMPLE Routine 02/10/2013 3: 27 PM CDT XR CHEST 1 VIEW Routine 02/10/2013 3:22 PM CDT SERUM TROPONIN I Routine 02/10/2013 3:10 PM CDT SERUM LIPID PANEL Routine 02/10/2013 3:1 0 PM CDT SERUM LIPASE Routine 02/10/2013 3:10 PM CDT SERUM CREATINE KINASE (CK) MB Routine 02/10/2013 3:10 PM CDT SERUM CALCIUM, IONIZED Routine 3 3:10 PM CDT PLASMA PROTHROMBIN TIME (PT) Routine 02/10/2013 3:10 PM CDT PLASMA PARTIAL THROMBOPLASTIN TIME (PTT) Routine 02/10/2013 3:10 PM CDT PLASMA LACTIC ACID Routine 02/10/2013 3: 10 PM CDT PLASMA HEPATIC FUNCTION PANEL Routine 02/10/2013 3:10 PM CDT PLASMA BASIC METABOLIC PANEL Routine 02/10/2013 3:10 PM CDT PLASMA AMYLASE Routine 02/10/2013 3:10 PM CDT BLOOD POTASSIUM, MIXED VENOUS Routine 02/10/2013 3:10 PM CDT BLOOD CELL COUNT (CBC) Routine 3 3:10 PM CDT BLOOD GAS, ARTERIAL Routine 02/10/2013 3 :10 PM CDT BLOOD ABO, RH, INDIRECT AB SCREEN Routine 02/10/2013 3:10 PM CDT MRSA SURVEILLANCE CULTURE, CDR Routine 02/10/2013 3:09 PM CDT VRE SCREEN, CDR Routine 02/10/2013 3:09 PM CDT ELECTROCARDIOGRAPHY (ECG) 02/10/2013 ALL MICROBIOLOGY REPORT SECTION Routine 02/10/2013 12:00 AM CDT ALL MICROBIOLOGY REPORT SECTION Routine 02/10/2013 12:00 AM CDT ALL MICROBIOLOGY REPORT SECTION Routine 02/10/2013 12:00 AM CDT ALL MICROBIOLOGY REPORT SECTION Routine 02/10/2013 12:00 AM CDT documented in this encounter Results * (ABNORMAL) Plasma basic metabolic panel (02/26/2013 12:51 AM CDT) Sodium 140 135 - 145 mmol/L HISTORICAL RESULTS K, pl 3.7 3.3 - 4.9 mmol/L HISTORICAL RESULTS Chloride 96(L) 97 - 110 mmol/L HISTORICAL RESULTS CO2 30 22 - 32 mmol/L HISTORICAL RESULTS A. gap 14 0 - 16 mmol/L HISTORICAL RESULTS Glucose 104 70 - 199 mg/dl HISTORICAL RESULTS BUN 66(H) 8 - 25 mg/dl HISTORICAL RESULTS Creatinine 6.17(H) 0.70 - 1.30 mg/dl HISTORICAL RESULTS Calcium 9.3 8.6 - 10.3 mg/dl HISTORICAL RESULTS Plasma 02/26/2013 12:5 1 AM CDT us Liliane Irene LAB BLOOD ORDERABLES Final Resul t HISTORICAL RESULTS * Serum magnesium (02/26/2013 12:51 AM CDT) Magnesium 2.0 1.4 - 2.5 mg/dl HISTORICAL RESULTS Serum 02/26/2013 12:5 1 AM CDT us Liliane D Teto LAB BLOOD ORDERABLES Final Resul t HISTORICAL RESULTS * Discharge Laboratory Cumulative Report (02/26/2013 12:00 AM CDT) 02/26/2013 Narrative HISTORICAL RESULTS - 02/26/2013 7:18 PM CDT ?[facility] ?Department of Laboratories ? [address] [facility] [place] ? [place] [id number] Patient Name: ??GIOVANA LEBRON Med Rec Number: [id number] Fin Number: ?[id number] Date: ?1980 Sex/Age: ? Male 33 years Admit Date: ?02/10/2013 Discharge Date: 02/26/2013 Doctor: ?[facility] , [facility] Facility: ?[facility] Location: ?[id number] Chart Printed: 02/26/2013 19:18 ?? * Abnormal ?? C Critical ?? f Footnote ?? ^ Corrected ?? L Low ?? H High ? i Interp Data ?? @ Reference Lab ?Chart Type:Cumulative ?BLOOD GASES ? Arterial Blood Gases ?Test: pH ? pCO2 ? pO2 ? Total CO2 ? Reference: [7.35-7.45] ??[35-45] ??[80-105] ??[21-30] ? Units: ?mmHg ? mmHg ?mmol/L 02/10/2013 ?? 15:10:53 ?? 7.34 ??L ?36 ? 104 ? 20 ??L ?Test: A-a Gradient ?% iO2 Art ? Vol iO2 Art ? Reference: ? Units: mmHg ?% ? L 02/10/2013 ?? 15:10:53 ?? Not Applicable ??Not Applicable ??Not Applicable ? SELECTED ELECTROLYTES ?Test: Sodium ? Plasma Potassium ??Chloride ? Reference: [135-145] ??[3.3-4.9] ? [97-110] ? Units: mmol/L ? mmol/L ?mmol/L 02/26/2013 ?? 00:51:00 ?? 140 ?3.7 ? 96 ??L 02/24/2013 ?? 21:36:00 ?? 142 ?4.0 ? 99 02/23/2013 ?? 21:28:00 ?? 139 ?4.1 ? 98 02/23/2013 ?? 10:09:00 ?? 139 ?4.3 ? 100 02/22/2013 ?? 07:11:00 ?? 136 ?3.9 ? 102 02/20/2013 ?? 20:58:00 ?? 137 ?3.9 ? 102 02/19/2013 ?? 21:25:00 ?? 138 ?3.9 ? 104 02/18/2013 ?? 22:13:00 ?? 138 ?3.8 ? 104 02/17/2013 ?? 22:00:24 ?? 137 ?3.9 ? 105 02/17/2013 ?? 06:27:00 ?? 136 ?3.8 ? 104 02/15/2013 ?? 22:41:03 ?? 135 ?4.2 ? 104 2013 ?? 21:17:39 ?? 134 ??L ? 4.2 ? 105 2013 ?? 13:06:00 ?? 136 ?4.2 ? 106 02/13/2013 ?? 20:46:21 ?? 136 ?4.5 ? 109 02/13/2013 ?? 00:54:51 ?? 136 ?4.5 ? 109 02/12/2013 ?? 17:56:00 ?? 135 ?4.3 ? 108 02/12/2013 ?? 09:59:00 ?? 136 ?4.5 ? 109 02/11/2013 ?? 23:44:49 ?? 133 ??L ? 4.6 ? 105 ? SELECTED ELECTROLYTES ?Test: Sodium ? Plasma Potassium ??Chloride ? Reference: [135-145] ??[3.3-4.9] ? [97-110] ? Units: mmol/L ? mmol/L ?mmol/L 02/11/2013 ?? 17:09:00 ?? 135 ?5.0 ??H ?106 02/11/2013 ?? 12:18:00 ?? 135 ?5.1 ??H ?105 02/11/2013 ?? 08:26:00 ?? 133 ??L ? 4.9 ? 104 02/11/2013 ?? 04:11:00 ?? 132 ??L ? 4.6 ? 102 02/11/2013 ?? 04:11:00 ?? 132 ??L ? 4.6 ? 103 02/11/2013 ?? 00:56:00 ?? 132 ??L ? 4.6 ? 101 02/10/2013 ?? 15:10:00 ?? 132 ??L ? 4.7 ? 100 ?Test: Total CO2 ??Anion Gap ? Reference: [22-32] ?[0-16] ? Units: mmol/L ? mmol/L 02/26/2013 ?? 00:51:00 ?? 30 ? 14 02/24/2013 ?? 21:36:00 ?? 28 ? 15 02/23/2013 ?? 21:28:00 ?? 25 ? 16 02/23/2013 ?? 10:09:00 ?? 25 ? 14 02/22/2013 ?? 07:11:00 ?? 21 ??L ?13 02/20/2013 ?? 20:58:00 ?? 22 ? 13 02/19/2013 ?? 21:25:00 ?? 24 ? 10 02/18/2013 ?? 22:13:00 ?? 23 ? 11 02/17/2013 ?? 22:00:24 ?? 22 ? 10 02/17/2013 ?? 06:27:00 ?? 21 ??L ?11 02/15/2013 ?? 22:41:03 ?? 20 ??L ?11 2013 ?? 21:17:39 ?? 18 ??L ?11 2013 ?? 13:06:00 ?? 19 ??L ?11 02/13/2013 ?? 20:46:21 ?? 18 ??L ?9 02/13/2013 ?? 00:54:51 ?? 18 ??L ?9 02/12/2013 ?? 17:56:00 ?? 17 ??L ?10 02/12/2013 ?? 09:59:00 ?? 18 ??L ?9 02/11/2013 ?? 23:44:49 ?? 18 ??L ?02/11/2013 ?? 17:09:00 ?? 19 ??L ?02/11/2013 ?? 12:18:00 ?? 18 ??L ?12 02/11/2013 ?? 08:26:00 ?? 18 ??L ?11 02/11/2013 ?? 04:11:00 ?? 20 ??L ?10 02/11/2013 ?? 04:11:00 ?? 19 ??L ?02/11/2013 ?? 00:56:00 ?? 21 ??L ?02/10/2013 ?? 15:10:00 ?? 22 ? 10 ? Whole Blood Electrolytes ?Test: Whole Blood Potassium ? Reference: [3.3-4.9] ? Units: mmol/L 02/12/2013 ?? 17:56:00 ?? 4.5 02/10/2013 ?? 15:10:15 ?? 4.6 ? STANDARD BLOOD CHEMISTRY ?Test: BUN ? Creatinine ?? Total Bilirubin ? Reference: [8-25] ??[0.70-1.30] ??[0.3-1.1] ? Units: mg/dL ?? mg/dL ?mg/dL 02/26/2013 ?? 00:51:00 ?? 66 ??H ?? 6.17 ??H 02/24/2013 ?? 21:36:00 ?? 71 ??H ?? 8.24 ??H 02/23/2013 ?? 21:28:00 ?? 74 ??H ?? 9.44 ??H 02/23/2013 ?? 10:09:00 ?? 76 ??H ?? 9.93 ??H 02/22/2013 ?? 07:11:00 ?? 78 ??H ?? 10.78 ??H 02/20/2013 ?? 20:58:00 ?? 75 ??H ?? 12.16 ??H 02/19/2013 ?? 21:25:00 ?? 75 ??H ?? 12.56 ??H 02/18/2013 ?? 22:13:00 ?? 70 ??H ?? 12.97 ??H 02/17/2013 ?? 22:00:24 ?? 69 ??H ?? 12.66 ??H 02/17/2013 ?? 06:27:00 ?? 68 ??H ?? 12.58 ??H 02/15/2013 ?? 22:41:03 ?? 65 ??H ?? 11.41 ??H 2013 ?? 21:17:39 ?? 61 ??H ?? 10.47 ??H ? 0.4 2013 ?? 13:06:00 ?? 57 ??H ?? 9.79 ??H 02/13/2013 ?? 20:46:21 ?? 55 ??H ?? 8.96 ??H ?0.4 02/13/2013 ?? 00:54:51 ?? 51 ??H ?? 8.31 ??H 02/12/2013 ?? 17:56:00 ?? 50 ??H ?? 7.81 ??H 02/12/2013 ?? 09:59:00 ?? 50 ??H ?? 7.54 ??H 02/11/2013 ?? 23:44:49 ?? 48 ??H ?? 6.75 ??H 02/11/2013 ?? 17:09:00 ?? 47 ??H ?? 6.48 ??H 02/11/2013 ?? 12:18:00 ?? 47 ??H ?? 6.29 ??H 02/11/2013 ?? 08:26:00 ?? 45 ??H ?? 5.94 ??H ?0.6 02/11/2013 ?? 04:11:00 ?? 43 ??H ?? 5.74 ??H 02/11/2013 ?? 04:11:00 ?? 45 ??H ?? 5.81 ??H ?0.6 02/11/2013 ?? 00:56:00 ?? 44 ??H ?? 5.30 ??H ?0.7 02/10/2013 ?? 21:00:00 ?0.7 02/10/2013 ?? 15:10:00 ?? 38 ??H ?? 4.35 ??H ?0.7 ?Test: Bilirubin, Direct ??Uric Acid ??Glucose ? Reference: [0.0-0.3] ?[3.0-8.0] ??[65-199] ? Units: mg/dL ?mg/dL ?mg/dL 02/15/2013 ?? 22:41:03 ?10.1 ??H 02/13/2013 ?? 20:46:21 ?? 0.1 ? 103 02/13/2013 ?? 00:54:51 ? 113 02/12/2013 ?? 17:56:00 ? 98 02/12/2013 ?? 09:59:00 ? 115 02/11/2013 ?? 23:44:49 ? 103 02/11/2013 ?? 17:09:00 ? 115 02/11/2013 ?? 12:18:00 ? 81 02/11/2013 ?? 08:26:00 ?? 0.2 ? 83 02/11/2013 ?? 04:11:00 ?9.6 ??H 02/11/2013 ?? 04:11:00 ? 84 02/11/2013 ?? 04:11:00 ? 86 02/11/2013 ?? 00:56:00 ?? 0.2 ? 88 02/11/2013 ?? 00:56:00 ?9.4 ??H 02/10/2013 ?? 21:00:00 ?? 0.2 ?9.3 ??H 02/10/2013 ?? 15:10:00 ?? 0.2 ? 113 ?Test: Glucose ?? Magnesium ??Total Calcium ? Reference: [70-199] ??[1.4-2.5] ??[8.6-10.3] ? Units: mg/dL ? mg/dL ?mg/dL 02/26/2013 ?? 00:51:00 ?? 104 ? 2.0 ?9.3 02/24/2013 ?? 21:36:00 ?? 131 ? 1.9 ?8.8 02/23/2013 ?? 21:28:00 ?? 130 ? 2.0 ?8.8 02/23/2013 ?? 10:09:00 ?? 100 ?8.4 ??L ? STANDARD BLOOD CHEMISTRY ?Test: Glucose ?? Magnesium ??Total Calcium ? Reference: [70-199] ??[1.4-2.5] ??[8.6-10.3] ? Units: mg/dL ? mg/dL ?mg/dL 02/22/2013 ?? 07:11:00 ?? 98 ? 8.3 ??L 02/20/2013 ?? 20:58:00 ?? 115 ?8.0 ??L 02/19/2013 ?? 21:25:00 ?? 105 ?8.0 ??L 02/18/2013 ?? 22:13:00 ?? 106 ?7.8 ??L 02/17/2013 ?? 22:00:24 ?? 119 ?8.0 ??L 02/17/2013 ?? 06:27:00 ?? 105 ?8.1 ??L 02/15/2013 ?? 22:41:03 ?? 114 ?8.0 ??L 2013 ?? 21:17:39 ?? 111 ?7.9 ??L 2013 ?? 13:06:00 ?? 91 ? 7.9 ??L 02/13/2013 ?? 20:46:21 ?7.6 ??L 02/13/2013 ?? 00:54:51 ? 1.9 ?7.4 ??L 02/12/2013 ?? 17:56:00 ?7.3 ??L 02/12/2013 ?? 09:59:00 ?7.3 ??02/11/2013 ?? 23:44:49 ? 1.9 ?7.3 ??L 02/11/2013 ?? 17:09:00 ?7.2 ??L 02/11/2013 ?? 12:18:00 ?7.1 ??02/11/2013 ?? 08:26:00 ?7.2 ??02/11/2013 ?? 04:11:00 ?7.0 ??L 02/11/2013 ?? 04:11:00 ?7.1 ??02/11/2013 ?? 00:56:00 ?7.2 ??02/11/2013 ?? 00:56:00 ? 1.8 02/10/2013 ?? 15:10:00 ?7.4 ??L ?Test: Plasma Phosphorus ??Plasma Total Protein ? Reference: [2.3-4.3] ?[6.5-8.5] ? Units: mg/dL ?g/dL 2013 ?? 21:17:39 ?4.7 ??L 02/13/2013 ?? 20:46:21 ?4.5 ??L 02/13/2013 ?? 00:54:51 ?? 4.0 02/11/2013 ?? 23:44:49 ?? 2.9 02/11/2013 ?? 08:26:00 ?4.9 ??L 02/11/2013 ?? 04:11:00 ?4.9 ??L 02/11/2013 ?? 00:56:00 ?4.9 ??L 02/11/2013 ?? 00:56:00 ?? 3.2 02/10/2013 ?? 21:00:00 ?5.2 ??L 02/10/2013 ?? 15:10:00 ?5.3 ??L ?Test: Albumin ? Reference: [3.6-5.0] ? Units: g/dL 2013 ?? 21:17:39 ?? 2.3 ??L 02/13/2013 ?? 20:46:21 ?? 2.1 ??L 02/11/2013 ?? 08:26:00 ?? 2.7 ??L 02/11/2013 ?? 04:11:00 ?? 2.7 ??L 02/11/2013 ?? 00:56:00 ?? 2.8 ??L 02/10/2013 ?? 21:00:00 ?? 3.0 ??L 02/10/2013 ?? 15:10:00 ?? 3.1 ??L ?LIPIDS ?Test: Total Cholesterol i ??HDL Cholesterol i ? Reference: [0-200] ?[40-199] ? Units: mg/dL ?mg/dL 02/10/2013 ?? 15:10:00 ?? 90 ? 27 ??L 02/10/2013 15:10:00 Total Cholesterol: Interpretive Data Desirable: ?<200 mg/dL Borderline high: ??200-239 mg/dL High: ? >240 mg/dL Literature Reference: National Cholesterol Education Program (NCEP) Expert Panel on Detection, Evaluation, and Treatment of High Blood Cholesterol in Adults (Adult Treatment Panel III). ??Circulation 2004; 110:227. Current interpretive data was last revised on 2005. 02/10/2013 15:10:00 HDL Cholesterol: Interpretive Data Less than 40 mg/dL - low; A major risk factor for heart disease. Greater than or equal to 60 mg/dL - High; ??considered protective of heart disease. Literature Reference: See Cholesterol Current interpretive data was last revised on 2008. ?Test: Triglycerides i ??LDL Chol (Calc) i ? Reference: [0-150] ?[0-129] ? Units: mg/dL ?mg/dL 02/10/2013 ?? 15:10:00 ?? 117 ?40 02/10/2013 15:10:00 Triglycerides: Interpretive Data Desirable: ? < 150 mg/dL Borderline High: ? 150 - 199 mg/dL High: ?> 200 mg/dL Literature Reference: See Cholesterol Current interpretive data was last revised on 07. 02/10/2013 15:10:00 LDL Chol (Calc): Interpretive Data Optimal: ? < 100 mg/dL Near Optimal: ?100 - 129 mg/dL Borderline High: ?? 130 - 159 mg/dL High: ?> 160 mg/dL Literature Reference: See Cholesterol Current interpretive data was last revised on 07. ?Test: non-HDL Cholesterol i ? Reference: ? Units: mg/dL 02/10/2013 ?? 15:10:00 ?? 63 ?LIPIDS 02/10/2013 15:10:00 non-HDL Cholesterol: Interpretive Data When triglycerides are >200 mg/dL, non-HDL C is a secondary target of therapy, with a goal 30 mg/dL higher than the identified LDL-C goal. Reference: ??See Cholesterol Reference. Current interpretive data was last revised 2012. ?ENZYMES ?Test: Alkaline Phosphatase ??ALT ?AST ? Reference: [38-126] ?[7-53] ?? [11-47] ? Units: Units/L ? Units/L ??Units/L 2013 ?? 21:17:39 ?? 45 ?408 ??H ?? 157 ??H 02/13/2013 ?? 20:46:21 ?? 46 ?566 ??H ?? 209 ??H 02/11/2013 ?? 08:26:00 ?? 56 ?1288 ??H ??1094 ??H 02/11/2013 ?? 04:11:00 ?? 57 ?1270 ??H ??1153 ??H 02/11/2013 ?? 00:56:00 ?? 57 ?1359 ??H ??1256 ??H 02/10/2013 ?? 21:00:00 ?? 61 ?1469 ??H ??1508 ??H 02/10/2013 ?? 15:10:00 ?? 63 ?1636 ??H ??1777 ??H ?Test: Total LD ?? Total CK ?? Amylase ?? Lipase ? Reference: [100-250] ??[30-200] ?? [28-100] ??[0-99] ? Units: Units/L ?Units/L ?Units/L ?? Units/L 02/20/2013 ?? 20:58:00 ?549 ??H 02/18/2013 ?? 22:13:00 ?934 ??H 02/15/2013 ?? 22:41:00 ?3353 ??H 02/13/2013 ?? 20:46:21 ? 60 02/13/2013 ?? 20:46:00 ?6636 ??H 02/13/2013 ?? 00:54:00 ?71791 ??C 02/11/2013 ?? 23:44:00 ?96224 ??Cf 02/11/2013 ?? 17:09:00 ?29466 ??Cf 02/11/2013 ?? 12:18:00 ?? 1238 ??H 02/11/2013 ?? 12:18:00 ?83312 ??Cf ??334 ??H 02/11/2013 ?? 08:26:00 ?? 1396 ??H ? 413 ??H 02/11/2013 ?? 08:26:00 ?41477 ??Cf 02/11/2013 ?? 04:11:00 ?? 1491 ??H 02/11/2013 ?? 04:11:00 ?61377 ??Cf ??490 ??H 02/11/2013 ?? 00:56:00 ?? 1555 ??H 02/11/2013 ?? 00:56:00 ? 578 ??H 02/11/2013 ?? 00:56:00 ?09223 ??Cf 02/10/2013 ?? 21:00:00 ?80368 ??Cf 02/10/2013 ?? 21:00:00 ?? 1884 ??H 02/10/2013 ?? 15:10:00 ?82372 ??Cf 02/10/2013 ?? 15:10:00 ? 1007 ??H ?? 29 02/11/2013 23:44:00 ??Total CK: Previous critical value noted 6 hours ago. 02/11/2013 17:09:00 ??Total CK: Repeated on dilution. ?? Previous critical value noted 4 hours ago. 02/11/2013 12:18:00 ??Total CK: Previous critical value noted 3 hours ago. ?ENZYMES 02/11/2013 08:26:00 ??Total CK: Previous critical value noted 4 hours ago. 02/11/2013 04:11:00 ??Total CK: Previous critical value noted 3 hours ago. 02/11/2013 00:56:00 ??Total CK: Previous critical value noted 3 hours ago. 02/10/2013 21:00:00 ??Total CK: Previous critical value noted 5 hours ago. 02/10/2013 15:10:00 ??Total CK: Critical result called to ruthy reyna) on 02/10/2013 16:25:10 CDT by raulito. ? CARDIAC PROTEINS ?Test: CK-MB ?Troponin I ? Reference: [0-7] ?[0.00-0.24] ? Units: ng/mL ?ng/mL 02/11/2013 ?? 17:09:00 ?? 88 ??Cf 02/11/2013 ?? 12:18:00 ?? 106 ??Cf 02/11/2013 ?? 08:26:00 ?0.19 02/11/2013 ?? 08:26:00 ?? 137 ??Cf 02/11/2013 ?? 04:11:00 ?? 159 ??Cf 02/11/2013 ?? 00:56:00 ?0.26 ??Cf 02/11/2013 ?? 00:56:00 ?? 174 ??Cf 02/10/2013 ?? 15:10:00 ?? 247 ??Cf ??0.60 ??Cf 02/10/2013 15:10:00 Troponin I: Interpretive Data Normal Range: <0.07 ng/mL: Negative 0.07 - 0.24 ng/mL: Elevated, may be consistent with Myocardial Injury/Ischemia but is nondiagnostic and of equivocal significance. Consider obtaining additional Troponin values. (JAM Vidal Cardiol 2000; 36:959. Circulation 2000; 102: 1193., 2002; 106: 1893., 2003: 108: 2543) Greater than or equal to 0.25 ng/mL: Positive Troponin, suggest establishing rising or falling pattern and evidence of Cardiac Ischemia for consideration of Myocardial Infarction. Current interpretive data was last revised on 2007. 02/11/2013 17:09:00 ??CK-MB: Previous critical value noted 4 hours ago. 02/11/2013 12:18:00 ??CK-MB: Previous critical value noted 3 hours ago. 02/11/2013 08:26:00 ??CK-MB: Previous critical value noted 4 hours ago. 02/11/2013 04:11:00 ??CK-MB: Previous critical value noted 3 hours ago. ? CARDIAC PROTEINS 02/11/2013 00:56:00 ??CK-MB: Previous critical value noted 9 hours ago. 02/10/2013 15:10:00 ??CK-MB: Critical result called to ruthy андрей (r.n.) on 02/10/2013 16:25:50 CDT by sd. 02/11/2013 00:56:00 ??Troponin I: Previous critical value noted 9 hours ago. 02/10/2013 15:10:00 ??Troponin I: Critical result called to ruthy tomasliv (r.n.) on 02/10/2013 16:22:27 CDT by sd. ?BLOOD HORMONES ?Test: Ionized Calcium ??Whole Blood Ion Calcium ? Reference: [4.50-5.10] ?[4.50-5.10] ? Units: mg/dL ?mg/dL 02/15/2013 ?? 22:41:00 ?4.63 02/15/2013 ?? 08:07:00 ?? 4.69 02/11/2013 ?? 00:56:00 ?? 4.15 ??L 02/10/2013 ?? 15:10:08 ?? 4.17 ??L ?METABOLITES ?Test: Plasma Lactate ? Reference: [0.7-2.1] ? Units: mmol/L 02/11/2013 ?? 00:56:00 ?? 0.8 02/10/2013 ?? 15:10:28 ?? 1.6 ? QUANTITATIVE URINE CHEMISTRY ?Test: Random Urine Creatinine ??Random Urine Protein i ? Reference: ? Units: mg/dL ?mg/dL 2013 ?? 15:46:57 ?? 39.85 2013 ?? 15:46:18 ?58.6 2013 15:46:18 Random Urine Protein: Interpretive Data Urine protein values from patients receiving aminoglycosides may be falsely elevated. Current interpretive data was last revised on 05. ? ANTIMICROBIAL DRUG ASSAYS ?Test: Vancomycin, Rnd ? Reference: ? Units: mcg/mL 02/12/2013 ?? 09:59:00 ?? 43.5 ??C ?URINALYSIS ?Macroscopic ?Test: Color ?Clarity ??Specific [place] ? Reference: [Yellow] ?? [Clear] ??[1.003-1.030] ? Units: 2013 ?? 18:33:00 ?? Colorless ??Clear ?1.004 02/12/2013 ?? 15:29:22 ?? Colorless ??Clear ?1.004 ?Test: pH ? Albumin ??Glucose ? Ketones ? Reference: [5.0-8.0] ??[Trace] ??[Negative] ??[Negative] ? Units: 2013 ?? 18:33:00 ?? 6.0 ?1+ ??* ?Negative ?Negative 02/12/2013 ?? 15:29:22 ?? 6.0 ?1+ ??* ?Negative ?Negative ?Test: Bilirubin ?? Blood ? Urobilinogen ? Reference: [Negative] ??[Negative] ??[0.0-2.0] ? Units: ? mg/dL 2013 ?? 18:33:00 ?? Negative ?2+ ??* ? <2.0 02/12/2013 ?? 15:29:22 ?? Negative ?2+ ??* ? <2.0 ?Test: Nitrite ? Leuk Esterase ? Reference: [Negative] ??[Negative] ? Units: 2013 ?? 18:33:00 ?? Negative ?Negative 02/12/2013 ?? 15:29:22 ?? Negative ?Negative ?Microscopic ?Test: Epithl Squam ??Mucus Thrds ??RBC Ur ??WBC Ur ? Reference: ?[0-3] ?? [0-5] ? Units: /LPF ?/HPF ? /HPF ?/HPF 2013 ?? 18:33:00 ? Small ?10 ??H ?? 1 02/12/2013 ?? 15:29:22 ?? 2 ? Small ?5 ??H ?1 ?Test: Bacteria Ur ??Epithl Renl Ur ? Reference: [Trace] ?[0-0] ? Units: ?/HPF 2013 ?? 18:33:00 ?? Trace ?0 02/12/2013 ?? 15:29:22 ?? Trace ?0 ? COMPLETE BLOOD COUNT ?Test: WBC ?RBC ?Hgb ? Reference: [3.8-9.8] ??[4.50-5.70] ??[13.8-17.2] ? Units: K/cumm ? M/cumm ? g/dL 02/18/2013 ?? 07:06:03 ?? 11.3 ??H ?3.45 ??L ?9.9 ??L 02/17/2013 ?? 22:00:24 ?? 10.6 ??H ?3.46 ??L ?9.7 ??L 02/15/2013 ?? 22:41:03 ?? 10.7 ??H ?3.71 ??L ?10.5 ??L 2013 ?? 21:17:39 ?? 9.8 ?3.97 ??L ?11.3 ??L 02/13/2013 ?? 20:46:21 ?? 9.6 ?3.97 ??L ?11.2 ??L 02/13/2013 ?? 00:54:51 ?? 12.6 ??H ?4.25 ??L ?12.2 ??L 02/11/2013 ?? 23:44:49 ?? 10.2 ??H ?3.83 ??L ?10.9 ??L 02/11/2013 ?? 00:56:00 ?? 12.6 ??H ?4.19 ??L ?12.1 ??L 02/10/2013 ?? 15:10:08 ?? 16.2 ??H ?4.57 ? 12.8 ??L ?Test: Hct ?Platelet Ct ??MCV ? Reference: [40.7-50.3] ??[140-440] ?[80.0-97.6] ? Units: % ?K/cumm ? fL 02/18/2013 ?? 07:06:03 ?? 28.4 ??L ?205 ?82.4 02/17/2013 ?? 22:00:24 ?? 29.4 ??L ?202 ?85.0 02/15/2013 ?? 22:41:03 ?? 30.8 ??L ?164 ?83.2 2013 ?? 21:17:39 ?? 32.8 ??L ?129 ??L ? 82.6 02/13/2013 ?? 20:46:21 ?? 33.9 ??L ?115 ??L ? 85.4 02/13/2013 ?? 00:54:51 ?? 35.6 ??L ?110 ??L ? 83.9 02/11/2013 ?? 23:44:49 ?? 32.0 ??L ?93 ??L ?83.5 02/11/2013 ?? 00:56:00 ?? 35.1 ??L ?86 ??L ?83.8 02/10/2013 ?? 15:10:08 ?? 39.3 ??L ?87 ??L ?85.9 ?Test: MCH ?MCHC ? RDW ? Reference: [26.7-33.7] ??[32.7-35.5] ??[11.8-14.6] ? Units: pg ? g/dL ? % 02/18/2013 ?? 07:06:03 ?? 28.7 ? 34.9 ? 14.7 ??H 02/17/2013 ?? 22:00:24 ?? 28.1 ? 33.1 ? 14.9 ??H 02/15/2013 ?? 22:41:03 ?? 28.3 ? 34.0 ? 13.9 2013 ?? 21:17:39 ?? 28.4 ? 34.4 ? 14.0 02/13/2013 ?? 20:46:21 ?? 28.3 ? 33.1 ? 14.1 02/13/2013 ?? 00:54:51 ?? 28.7 ? 34.3 ? 13.7 02/11/2013 ?? 23:44:49 ?? 28.4 ? 34.0 ? 13.4 02/11/2013 ?? 00:56:00 ?? 28.9 ? 34.5 ? 13.6 02/10/2013 ?? 15:10:08 ?? 28.1 ? 32.7 ? 13.4 ?Test: MPV ? Reference: [6.8-10.4] ? Units: fL 02/18/2013 ?? 07:06:03 ?? 7.4 02/17/2013 ?? 22:00:24 ?? 7.4 02/15/2013 ?? 22:41:03 ?? 8.0 2013 ?? 21:17:39 ?? 7.4 02/13/2013 ?? 20:46:21 ?? 7.7 02/13/2013 ?? 00:54:51 ?? 7.5 02/11/2013 ?? 23:44:49 ?? 7.8 02/11/2013 ?? 00:56:00 ?? 8.1 02/10/2013 ?? 15:10:08 ?? 7.9 ? AUTOMATED WHITE CELL DIFFERENTIAL ?Test: Neut Pct Auto ??Lymph Pct Auto ??Bates Pct Auto ? Reference: [38.7-74.5] ?[20.0-54.3] ? [4.3-13.5] ? Units: % ?% ? % 02/17/2013 ?? 22:00:24 ?? 72.5 ? 11.2 ??L ? 10.4 02/15/2013 ?? 22:41:03 ?? 72.3 ? 11.5 ??L ? 9.2 2013 ?? 21:17:39 ?? 69.9 ? 12.1 ??L ? 10.3 02/13/2013 ?? 20:46:21 ?? 74.7 ??H ?10.0 ??L ? 9.1 02/13/2013 ?? 00:54:51 ?? 88.3 ??H ?4.7 ??L ?6.1 02/11/2013 ?? 23:44:49 ?? 81.0 ??H ?9.4 ??L ?6.9 02/11/2013 ?? 00:56:00 ?? 84.2 ??H ?7.5 ??L ?5.5 02/10/2013 ?? 15:10:08 ?? 86.1 ??H ?6.1 ??L ?5.1 ?Test: Eos Pct Auto ??Baso Pct Auto ??Neut Abs Auto ? Reference: [0.0-6.0] ? [0.0-3.0] ?[1.8-6.6] ? Units: % ? % ?K/cumm 02/17/2013 ?? 22:00:24 ?? 5.4 ? 0.5 ?7.7 ??H 02/15/2013 ?? 22:41:03 ?? 6.6 ??H ?0.4 ?7.7 ??H 2013 ?? 21:17:39 ?? 7.4 ??H ?0.3 ?6.8 ??H 02/13/2013 ?? 20:46:21 ?? 5.9 ? 0.3 ?7.2 ??H 02/13/2013 ?? 00:54:51 ?? 0.7 ? 0.2 ?11.2 ??H 02/11/2013 ?? 23:44:49 ?? 2.7 ? 0.0 ?8.2 ??H 02/11/2013 ?? 00:56:00 ?? 2.5 ? 0.3 ?10.6 ??H 02/10/2013 ?? 15:10:08 ?? 2.6 ? 0.1 ?14.0 ??H ?Test: Lymph Abs Auto ??Bates Abs Auto ??Eos Abs Auto ? Reference: [1.2-3.3] ? [0.2-1.2] ?[0.0-0.5] ? Units: K/cumm ?K/cumm ? K/cumm 02/17/2013 ?? 22:00:24 ?? 1.2 ? 1.1 ?0.6 ??H 02/15/2013 ?? 22:41:03 ?? 1.2 ? 1.0 ?0.7 ??H 2013 ?? 21:17:39 ?? 1.2 ? 1.0 ?0.7 ??H 02/13/2013 ?? 20:46:21 ?? 1.0 ??L ?0.9 ?0.6 ??H 02/13/2013 ?? 00:54:51 ?? 0.6 ??L ?0.8 ?0.1 02/11/2013 ?? 23:44:49 ?? 1.0 ??L ?0.7 ?0.3 02/11/2013 ?? 00:56:00 ?? 0.9 ??L ?0.7 ?0.3 02/10/2013 ?? 15:10:08 ?? 1.0 ??L ?0.8 ?0.4 ?Test: Baso Abs Auto ? Reference: [0.0-0.2] ? Units: K/cumm 02/17/2013 ?? 22:00:24 ?? 0.1 02/15/2013 ?? 22:41:03 ?? 0.0 2013 ?? 21:17:39 ?? 0.0 02/13/2013 ?? 20:46:21 ?? 0.0 02/13/2013 ?? 00:54:51 ?? 0.0 02/11/2013 ?? 23:44:49 ?? 0.0 02/11/2013 ?? 00:56:00 ?? 0.0 02/10/2013 ?? 15:10:08 ?? 0.0 ?ANEMIA TESTING ?Test: Retic Count ??Retic Abs ? Reference: [0.4-1.9] ?[0.015-0.092] ? Units: % ?M/cumm 02/13/2013 ?? 00:54:39 ?? 2.0 ??H ? 0.084 ? MISCELLANEOUS HEMATOLOGY ?Test: Extra Slide ? Reference: ? Units: 02/12/2013 ?? 17:56:33 ?? Test Completed ? HEMOSTASIS AND THROMBOSIS ?Routine Coagulation Studies ?Test: PT ?INR ?aPTT ? Reference: [9.0-12.0] ??[0.90-1.20] ??[25.0-37.0] ? Units: sec ?sec 02/13/2013 ?? 20:46:21 ?? 11.6 ?1.10 02/13/2013 ?? 00:54:39 ?? 11.5 ?1.09 ? 25.2 02/11/2013 ?? 08:26:29 ?? 13.2 ??H ? 1.25 ??H 02/11/2013 ?? 00:58:00 ?? 13.5 ??H ? 1.27 ??H ?25.1 02/10/2013 ?? 15:10:08 ?? 13.5 ??H ? 1.27 ??H ?24.2 ??L 02/10/2013 15:10:08 INR: Interpretive Data Inpatient therapeutic ranges* Atrial fibrillation ?2.0-3.0 INR Venous thrombo-embolism ?2.0-3.0 INR Bioprosthetic heart valve ?* Mechanical heart valve, bileaflet or tilting disk,aortic position ? 2.0-3.0 INR All other,or bileaflet or tilting disk, in mitral position ? 2.5-3.5 INR *See the pharmacy resource directory (PHRED) for an updated copy of the Tool Book at [email or web address] Current Interpretive Data was last revised 2011. 02/10/2013 15:10:08 aPTT: Interpretive Data Therapeutic heparin range:60.0 - 94.0 sec based on correlation with therapeutic heparin activity range of 0.3 -0.7 Units/mL. Current interpretive data was last revised on 2011. ?Test: Fibrinogen ? Reference: [170-400] ? Units: mg/dL 02/13/2013 ?? 20:46:21 ?? 386 ?COMPLEMENTS ?Test: Complement, C2 i ??Complement, C3 ? Reference: [25-47] ? [83.0-185.0] ? Units: units/mL ?mg/dL 02/15/2013 ?? 13:45:00 ?? 49 ??H ? 96.1 02/15/2013 13:45:00 Complement, C2: Testing performed by: [facility], [place] [address]. ?Test: Complement, C4 ? Reference: [12.0-54.0] ? Units: mg/dL 02/15/2013 ?? 13:45:00 ?? 19.4 ?AUTOANTIBODIES ?Test: APOORVA, Qual i ??Neutrophil Cytoplas Ab, Qual ? Reference: [Negative] ? Units: 02/15/2013 ?? 22:41:00 ?? Negative ? Negative 02/15/2013 22:41:00 APOORVA, Qual: Interpretive Data Normal range for Apoorva Qualitative Antibody = Negative. 1. ??APOORVA titers are performed on all positive qualitative results. 2. ??A significantly positive APOORVA result is defined as a positive nuclear fluorescence at a titer of 1:80 or greater. 3. ??15% of normal people above age 65 have significantly positive APOORVA results. ??5% or less of normal people age 65 or under have significantly positive APOORVA results. Current interpretive data was last revised on 03. ?HEPATITIS TESTS ?Test: Hepatitis A IgM Antibody i ? Reference: [NEG] ? Units: 02/11/2013 ?? 04:11:00 ?? NEG 02/11/2013 04:11:00 Hepatitis A IgM Antibody: Interpretive Data If test is reported as Equivocal, new sample should be drawn in two weeks for testing. Current interpretive data was last revised on 2008. ?Test: Hepatitis B Surface Antigen ? Reference: [NEG] ? Units: 02/11/2013 ?? 04:11:00 ?? NEG ?HEPATITIS TESTS ?Test: Hepatitis B Core IgM Antibody i ? Reference: [NEG] ? Units: 02/11/2013 ?? 04:11:00 ?? NEG 02/11/2013 04:11:00 Hepatitis B Core IgM Antibody: Interpretive Data If test is reported as Equivocal, new sample should be drawn for testing. Current interpretive data was last revised on 2008. ?Test: Hepatitis C Antibody i ? Reference: [NEG] ? Units: 02/11/2013 ?? 04:11:00 ?? NEG 02/11/2013 04:11:00 Hepatitis C Antibody: Interpretive Data If confirmation is required, call Laboratory Customer Service to request sample to be sent to [facility] for Hepatitis C Virus (HCV) RNA Detection and Quantitation by Real-Time Reverse Ship Rigger Apprentice-PCR (RT-PCR). Current interpretive data was last revised on 2011 ?Test: Hepatitis C, PCR, Quantitative ? Reference: [Undetected] ? Units: IUnits/mL 02/10/2013 ?? 21:00:55 ?? Undetected ??f 02/10/2013 21:00:55 ??Hepatitis C, PCR, Quantitative: Result in log IU/mL is Undetected. The quantification range of this assay is 43 IU/mL to 69,000,000 IU/mL (1.63 log IU/mL to 7.84 log IU/mL). Testing was performed by the EDUARDO AmpliPrep/EDUARDO TaqMan HCV Test ([employer] Test Performed by: [place] [address] Coal Handler: Noel Unger III, M.D. ? HIV / HTLV TESTS ?Test: HIV 1-2 Antibodies ? Reference: [NEG] ? Units: 02/10/2013 ?? 21:00:00 ?? NEG ? TRANSFUSION MEDICINE ?Test: Indirect [place]. ??ABO/Rh Pat Interp ? Reference: ? Units: 02/18/2013 ?? 07:06:00 ?? Negative ?A Positive 02/10/2013 ?? 15:27:00 ? A Positive 02/10/2013 ?? 15:10:00 ?? Negative ?A Positive ?POINT OF CARE TESTS ? Chemistry ?Test: Gluc WB POC ? Reference: [65-866] ? Units: mg/dL 02/10/2013 ?? 19:23:00 ?? 97 ? SUMMARY OF CRITICAL CALLBACKS ?Test: Called By ??Called To ??Credentials ??Date Notified 02/12/2013 ??09:59:00 ??See Below ??See Below ??RN ? 02/12/2013 02/12/2013 ??09:59:00 ??Called By ? gisel 02/12/2013 ??09:59:00 ??Called To ? Eugenia Gannon ?Test: TestName ?? Time Notified 02/12/2013 ??09:59:00 ??See Below ??1121 02/12/2013 ??09:59:00 ??TestName ? Vancomycin Rnd ? MICROBIOLOGY - ALL TESTS ? PROCEDURE: Aerobic, Anaerobic and Mycology Culture, Blood ?SOURCE: Blood COLLECTED: 02/10/13 ??2100 ? BODY SITE: Peripheral STARTED: 02/10/13 ??2137 FREE TEXT SOURCE: FINAL REPORT REPORTED: 02/16/13622 No growth ? MICROBIOLOGY - ALL TESTS ? PROCEDURE: Aerobic, Anaerobic and Mycology Culture, Blood ?SOURCE: Blood COLLECTED: 02/10/13 ??1646 ? BODY SITE: Antecubital, right STARTED: 02/10/13 ??1739 FREE TEXT SOURCE: FINAL REPORT REPORTED: 02/16/13 0623 No growth ? PROCEDURE: Clostridium difficile Toxin ?SOURCE: Stool COLLECTED: 02/13/13 ??0059 ? BODY SITE: STARTED: 02/13/13 ??0212 FREE TEXT SOURCE: FINAL REPORT REPORTED: 02/14/13 0517 Negative for: Clostridium difficile toxin. ? PROCEDURE: MRSA Surveillance Culture ?SOURCE: Nasal COLLECTED: 02/12/13 ??1141 ? BODY SITE: STARTED: 02/12/13 ??1215 FREE TEXT SOURCE: FINAL REPORT REPORTED: 02/13/13 1326 Negative * * * ??Interpretive Results ??* * * (1)This test is for Infection Prevention surveillance; no charge to the patient. ? MICROBIOLOGY - ALL TESTS ? PROCEDURE: MRSA Surveillance Culture ?SOURCE: Nasal COLLECTED: 02/10/13 ??1509 ? BODY SITE: STARTED: 02/10/13 ??1549 FREE TEXT SOURCE: FINAL REPORT REPORTED: 02/12/13 0733 Negative * * * ??Interpretive Results ??* * * (1)This test is for Infection Prevention surveillance; no charge to the patient. ? PROCEDURE: Urine Culture ?SOURCE: Urine COLLECTED: 02/14/13 ??1833 ? BODY SITE: STARTED: 02/14/13 ??1932 FREE TEXT SOURCE: FINAL REPORT REPORTED: 02/16/13 1119 No growth ? PROCEDURE: Urine Culture ?SOURCE: Urine, catheterized COLLECTED: 02/11/13 ??0100 ? BODY SITE: Field STARTED: 02/11/13 ??0244 FREE TEXT SOURCE: FINAL REPORT REPORTED: 02/12/13 09 No growth ? MICROBIOLOGY - ALL TESTS ? PROCEDURE: VRE Screen Culture ?SOURCE: Rectal swab COLLECTED: 02/10/13 ??1509 ? BODY SITE: STARTED: 02/10/13 ??1549 FREE TEXT SOURCE: FINAL REPORT REPORTED: 02/13/13 1057 Negative ? MICROBIOLOGY - BLOOD/STERILE FLUID ? PROCEDURE: Aerobic, Anaerobic and Mycology Culture, Blood ?SOURCE: Blood COLLECTED: 02/10/13 ??2100 ? BODY SITE: Peripheral STARTED: 02/10/13 ??2137 FREE TEXT SOURCE: FINAL REPORT REPORTED: 02/16/13 0623 No growth ? PROCEDURE: Aerobic, Anaerobic and Mycology Culture, Blood ?SOURCE: Blood COLLECTED: 02/10/13 ??1646 ? BODY SITE: Antecubital, right STARTED: 02/10/13 ??1739 FREE TEXT SOURCE: FINAL REPORT REPORTED: 02/16/13 06 No growth ? MICROBIOLOGY - GASTROINTESTINAL ? PROCEDURE: Clostridium difficile Toxin ?SOURCE: Stool COLLECTED: 02/13/13 ??0059 ? BODY SITE: STARTED: 02/13/13 ??0212 FREE TEXT SOURCE: FINAL REPORT REPORTED: 02/14/13 0517 Negative for: Clostridium difficile toxin. ? PROCEDURE: VRE Screen Culture ?SOURCE: Rectal swab COLLECTED: 02/10/13 ??1509 ? BODY SITE: STARTED: 02/10/13 ??1549 FREE TEXT SOURCE: FINAL REPORT REPORTED: 02/13/13 1057 Negative ? MICROBIOLOGY - MISCELLANEOUS ? PROCEDURE: MRSA Surveillance Culture ?SOURCE: Nasal COLLECTED: 02/12/13 ??1141 ? BODY SITE: STARTED: 02/12/13 ??1215 FREE TEXT SOURCE: FINAL REPORT REPORTED: 02/13/13 1326 Negative * * * ??Interpretive Results ??* * * (1)This test is for Infection Prevention surveillance; no charge to the patient. ? MICROBIOLOGY - MISCELLANEOUS ? PROCEDURE: MRSA Surveillance Culture ?SOURCE: Nasal COLLECTED: 02/10/13 ??1509 ? BODY SITE: STARTED: 02/10/13 ??1549 FREE TEXT SOURCE: FINAL REPORT REPORTED: 02/12/13 0733 Negative * * * ??Interpretive Results ??* * * (1)This test is for Infection Prevention surveillance; no charge to the patient. ? MICROBIOLOGY - URINE ? PROCEDURE: Urine Culture ?SOURCE: Urine COLLECTED: 02/14/13 ??1833 ? BODY SITE: STARTED: 02/14/13 ??1932 FREE TEXT SOURCE: FINAL REPORT REPORTED: 02/16/13 1119 No growth ? PROCEDURE: Urine Culture ?SOURCE: Urine, catheterized COLLECTED: 02/11/13 ??0100 ? BODY SITE: Field STARTED: 02/11/13 ??0244 FREE TEXT SOURCE: FINAL REPORT REPORTED: 02/12/13912 No growth ? CANCELLED TESTS Date ?Time ?Test ?Cancel Reason 02/10/2013 ??15:09:00 ??C RESPST ?Lab Operations Cancel 02/10/2013 ??15:09:00 ??CK Totl ? NCHG Duplicate 02/10/2013 ??16:00:00 ??Comp Met Plas ? CANCELLED TESTS Date ?Time ?Test ?Cancel Reason 02/10/2013 ??20:00:00 ??Basic Met Plas ??NCHG Duplicate 02/10/2013 ??20:00:00 ??CKMB Prof 02/10/2013 ??20:00:00 ??Comp Met Plas 02/10/2013 ??20:30:00 ??Amylase 02/10/2013 ??20:30:00 ??Uric Acid 02/10/2013 ??21:49:00 ??Basic Met Plas ??NCHG Not Received 02/10/2013 ??23:59:00 ??Comp Met Plas 02/10/2013 ??23:59:00 ??CK Totl ? NCHG Duplicate 02/10/2013 ??23:59:00 ??PT ?Lab Operations Cancel 02/11/2013 ??08:00:00 ??Basic Met Plas ??NCHG Duplicate 02/11/2013 ??08:00:00 ??CK Totl ? NCHG Duplicate 02/11/2013 ??08:26:00 ??Hep FuncPnlP ?NCHG Duplicate 02/11/2013 ??18:00:00 ??Basic Met Plas 02/11/2013 ??18:00:00 ??CK Totl 02/15/2013 ??12:30:00 ??Comp C2 02/15/2013 ??12:30:00 ??Comp C3 02/15/2013 ??12:30:00 ??Comp C4 02/15/2013 ??12:30:00 ??ANCA Ql 02/15/2013 ??12:30:00 ??APOORVA Ab Ql 02/15/2013 ??13:46:00 ??ANCA Ql ? NCHG Duplicate 02/15/2013 ??13:46:00 ??APOORVA Ab Ql ? NCHG Duplicate us Historical Provider LAB BLOOD ORDERABLES Nettie pierre Result HISTORICAL RESULTS * (ABNORMAL) Plasma basic metabolic panel (02/24/2013 9:36 PM CDT) Sodium 142 135 - 145 mmol/L HISTORICAL RESULTS K, pl 4.0 3.3 - 4.9 mmol/L HISTORICAL RESULTS Chloride 99 97 - 110 mmol/L HISTORICAL RESULTS CO2 28 22 - 32 mmol/L HISTORICAL RESULTS A. gap 15 0 - 16 mmol/L HISTORICAL RESULTS Glucose 131 70 - 199 mg/dl HISTORICAL RESULTS BUN 71(H) 8 - 25 mg/dl HISTORICAL RESULTS Creatinine 8.24(H) 0.70 - 1.30 mg/dl HISTORICAL RESULTS Calcium 8.8 8.6 - 10.3 mg/dl HISTORICAL RESULTS Plasma 02/24/2013 9:36 PM CDT Liliane Maggy Bobbyl LAB BLOOD ORDERABLES Final Resul t Performing Organization Address [facility] de Phone Number HISTORICAL RESULTS * Serum magnesium (02/24/2013 9:36 PM CDT) Magnesium 1.9 1.4 - 2.5 mg/dl HISTORICAL RESULTS Serum 02/24/2013 9:36 PM CDT Liliane Maggy Teto LAB BLOOD ORDERABLES Final Resul t Performing Organization Address [facility] de Phone Number HISTORICAL RESULTS * (ABNORMAL) Plasma basic metabolic panel (02/23/2013 9:28 PM CDT) Sodium 139 135 - 145 mmol/L HISTORICAL RESULTS K, pl 4.1 3.3 - 4.9 mmol/L HISTORICAL RESULTS Chloride 98 97 - 110 mmol/L HISTORICAL RESULTS CO2 25 22 - 32 mmol/L HISTORICAL RESULTS A. gap 16 0 - 16 mmol/L HISTORICAL RESULTS Glucose 130 70 - 199 mg/dl HISTORICAL RESULTS BUN 74(H) 8 - 25 mg/dl HISTORICAL RESULTS Creatinine 9.44(H) 0.70 - 1.30 mg/dl HISTORICAL RESULTS Calcium 8.8 8.6 - 10.3 mg/dl HISTORICAL RESULTS Plasma 02/23/2013 9:28 PM CDT Patti Pelaez LAB BLOOD ORDERABLES Final Resul t Performing Organization Address [facility] de Phone Number HISTORICAL RESULTS * Serum magnesium (02/23/2013 9:28 PM CDT) Magnesium 2.0 1.4 - 2.5 mg/dl HISTORICAL RESULTS Serum 02/23/2013 9:28 PM CDT Patti Pelaez LAB BLOOD ORDERABLES Final Resul t Performing Organization Address [facility] de Phone Number HISTORICAL RESULTS * (ABNORMAL) Plasma basic metabolic panel (02/23/2013 10:09 AM CDT) Sodium 139 135 - 145 mmol/L HISTORICAL RESULTS K, pl 4.3 3.3 - 4.9 mmol/L HISTORICAL RESULTS Chloride 100 97 - 110 mmol/L HISTORICAL RESULTS CO2 25 22 - 32 mmol/L HISTORICAL RESULTS A. gap 14 0 - 16 mmol/L HISTORICAL RESULTS Glucose 100 70 - 199 mg/dl HISTORICAL RESULTS BUN 76(H) 8 - 25 mg/dl HISTORICAL RESULTS Creatinine 9.93(H) 0.70 - 1.30 mg/dl HISTORICAL RESULTS Calcium 8.4(L) 8.6 - 10.3 mg/dl HISTORICAL RESULTS Plasma 02/23/2013 10:0 9 AM CDT Patti Pelaez LAB BLOOD ORDERABLES Final Resul t Performing Organization Address [facility] de Phone Number HISTORICAL RESULTS * (ABNORMAL) Plasma basic metabolic panel (02/22/2013 7:11 AM CDT) Sodium 136 135 - 145 mmol/L HISTORICAL RESULTS K, pl 3.9 3.3 - 4.9 mmol/L HISTORICAL RESULTS Chloride 102 97 - 110 mmol/L HISTORICAL RESULTS CO2 21(L) 22 - 32 mmol/L HISTORICAL RESULTS A. gap 13 0 - 16 mmol/L HISTORICAL RESULTS Glucose 98 70 - 199 mg/dl HISTORICAL RESULTS BUN 78(H) 8 - 25 mg/dl HISTORICAL RESULTS Creatinine 10.78(H) 0.70 - 1.30 mg/dl HISTORICAL RESULTS Calcium 8.3(L) 8.6 - 10.3 mg/dl HISTORICAL RESULTS Plasma 02/22/2013 7:11 AM CDT Patti Pelaez LAB BLOOD ORDERABLES Final [facility] t Performing Organization Address City/[facility] de Phone Number HISTORICAL RESULTS * (ABNORMAL) Serum creatine kinase (CK) (02/20/2013 8:58 PM CDT) CK 549(H) 30 - 200 Units/L HISTORICAL RESULTS Serum 02/20/2013 8:58 PM CDT us Liliane D Teto LAB BLOOD ORDERABLES Final Resul t Performing Organization Address [facility] de Phone Number HISTORICAL RESULTS * (ABNORMAL) Plasma basic metabolic panel (02/20/2013 8:58 PM CDT) Sodium 137 135 - 145 mmol/L HISTORICAL RESULTS K, pl 3.9 3.3 - 4.9 mmol/L HISTORICAL RESULTS Chloride 102 97 - 110 mmol/L HISTORICAL RESULTS CO2 22 22 - 32 mmol/L HISTORICAL RESULTS A. gap 13 0 - 16 mmol/L HISTORICAL RESULTS Glucose 115 70 - 199 mg/dl HISTORICAL RESULTS BUN 75(H) 8 - 25 mg/dl HISTORICAL RESULTS Creatinine 12.16(H) 0.70 - 1.30 mg/dl HISTORICAL RESULTS Calcium 8.0(L) 8.6 - 10.3 mg/dl HISTORICAL RESULTS Plasma 02/20/2013 8:58 PM CDT us Liliane D Teto LAB BLOOD ORDERABLES Final Resul t Performing Organization Address [facility] de Phone Number HISTORICAL RESULTS * (ABNORMAL) Plasma basic metabolic panel (02/19/2013 9:25 PM CDT) Sodium 138 135 - 145 mmol/L HISTORICAL RESULTS K, pl 3.9 3.3 - 4.9 mmol/L HISTORICAL RESULTS Chloride 104 97 - 110 mmol/L HISTORICAL RESULTS CO2 24 22 - 32 mmol/L HISTORICAL RESULTS A. gap 10 0 - 16 mmol/L HISTORICAL RESULTS Glucose 105 70 - 199 mg/dl HISTORICAL RESULTS BUN 75(H) 8 - 25 mg/dl HISTORICAL RESULTS Creatinine 12.56(H) 0.70 - 1.30 mg/dl HISTORICAL RESULTS Calcium 8.0(L) 8.6 - 10.3 mg/dl HISTORICAL RESULTS Plasma 02/19/2013 9:25 PM CDT us Liliane D Teto LAB BLOOD ORDERABLES Final Resul t Performing Organization Address [facility] de Phone Number HISTORICAL RESULTS * US Scrotom (02/19/2013 10:29 AM CDT) Anatomical Region Laterality Modality Testis N/A Ultrasound 02/19/2013 10:2 9 AM CDT Narrative 02/19/2013 2:07 PM CDT DONTE MEEK M.D. ISHA RAMOS M.D. FINAL REPORT The radiology attending physician has personally reviewed this study, and has reviewed and/or edited this written report and agrees with it. ACC# ??Date Time ??Exam [id number] Feb 19, 2013 10:29:00 [id number] Scrotal Sono EXAMINATION: ?SCROTAL SONOGRAM HISTORY: ?Patient reports 5 day history of scrotal swelling. Patient also reports a 6 month history of left inferior testicular mass. FINDINGS: The testes are normal in size and appearance. ??There is marked scrotal edema. The right testis measures 5.6 by 3.7 by 3.3 cm and the left measures 5.1 by 3.1 by 3.1 cm. ??No intratesticular masses are seen. The right and left epididymis appear normal with the exception of a 2.8 x 2.7 x 1.3 cm cyst in the tail of the left epididymis. ??This site corresponded to the patient's palpable area of concern. There is no internal vascular flow to the cyst. ?? IMPRESSION: 1. Marked scrotal wall edema. Underlying testicles are normal. 2. Cyst in the left epididymal tail that corresponds to the patient's palpable area of concern. ?? Requested By: PATTI PELAEZ M.D. Dictated By: ?? SIHA RAMOS M.D. ??on Feb ??2012 10:47A This document has been electronically signed by: DONTE MEEK M.D. on Feb ??2012 ??2:07P Procedure Note Provider, MD Naheed - 11/13/2016 DONTE MEEK M.D. ISHA RAMOS M.D. FINAL REPORT The radiology attending physician has personally reviewed this study, and has reviewed and/or edited this written report and agrees with it. ACC# Date Time Exam [id number] Feb 19, 2013 10:29:00 [id number] Scrotal Sono EXAMINATION: SCROTAL SONOGRAM HISTORY: Patient reports 5 day history of scrotal swelling. Patient also reports a 6 month history of left inferior testicular mass. FINDINGS: The testes are normal in size and appearance. There is marked scrotal edema. The right testis measures 5.6 by 3.7 by 3.3 cm and the left measures 5.1 by 3.1 by 3.1 cm. No intratesticular masses are seen. The right and left epididymis appear normal with the exception of a 2.8 x 2.7 x 1.3 cm cyst in the tail of the left epididymis. This site corresponded to the patient's palpable area of concern. There is no internal vascular flow to the cyst. IMPRESSION: 1. Marked scrotal wall edema. Underlying testicles are normal. 2. Cyst in the left epididymal tail that corresponds to the patient's palpable area of concern. Requested By: PATTI PELAEZ M.D. Dictated By: ISHA RAMOS M.D. on Feb 19 2013 10:47A This document has been electronically signed by: DONTE MEEK M.D. on Feb 19 2013 2:07P Historical Provider IMKarrie US PROCEDURES Final R esult * (ABNORMAL) Serum creatine kinase (CK) (02/18/2013 10:13 PM CDT) CK 934(H) 30 - 200 Units/L HISTORICAL RESULTS Serum 02/18/2013 10:1 3 PM CDT Patti Pelaez LAB BLOOD ORDERABLES Final Resul t HISTORICAL RESULTS * (ABNORMAL) Plasma basic metabolic panel (02/18/2013 10:13 PM CDT) Sodium 138 135 - 145 mmol/L HISTORICAL RESULTS K, pl 3.8 3.3 - 4.9 mmol/L HISTORICAL RESULTS Chloride 104 97 - 110 mmol/L HISTORICAL RESULTS CO2 23 22 - 32 mmol/L HISTORICAL RESULTS A. gap 11 0 - 16 mmol/L HISTORICAL RESULTS Glucose 106 70 - 199 mg/dl HISTORICAL RESULTS BUN 70(H) 8 - 25 mg/dl HISTORICAL RESULTS Creatinine 12.97(H) 0.70 - 1.30 mg/dl HISTORICAL RESULTS Calcium 7.8(L) 8.6 - 10.3 mg/dl HISTORICAL RESULTS Plasma 02/18/2013 10:1 3 PM CDT Patti Pelaez LAB BLOOD ORDERABLES Final Resul t Performing Organization Address [facility] de Phone Number HISTORICAL RESULTS * Blood ABO, Rh, indirect ab screen (02/18/2013 7:06 AM CDT) ABO, Rho(D) A Positive HISTORI NETTA RESULTS [place], indirect Negative HISTORICAL RESULTS Blood specimen (specimen) 02/18/2013 7:06 AM CDT Patti Pelaez LAB BLOOD ORDERABLES Final Resul t Performing Organization Address [facility] de Phone Number HISTORICAL RESULTS * (ABNORMAL) Blood cell count [CBC] express (02/18/2013 7:06 AM CDT) WBC 11.3(H) 3.8 - 9.8 K/cumm HISTORICAL RESULTS RBC 3.45(L) 4.50 - 5.70 M/cumm HISTORICAL RESULTS Hgb 9.9(L) 13.8 - 17.2 g/dl HISTORICAL RESULTS Hct 28.4(L) 40.7 - 50.3 % HISTORICAL RESULTS MCV 82.4 80.0 - 97.6 fl HISTORICAL RESULTS MCH 28.7 26.7 - 33.7 pg HISTORICAL RESULTS MCHC 34.9 32.7 - 35.5 g/dl HISTORICAL RESULTS Rdw 14.7(H) 11.8 - 14.6 % HISTORICAL RESULTS Platelets 205 140 - 440 K/cumm HISTORICAL RESULTS MPV 7.4 6.8 - 10.4 fl HISTORICAL RESULTS Blood specimen (specimen) 02/18/2013 7:06 AM CDT Patti Pelaez LAB BLOOD ORDERABLES Final Resul t HISTORICAL RESULTS * (ABNORMAL) Plasma basic metabolic panel (02/17/2013 10:00 PM CDT) Sodium 137 135 - 145 mmol/L HISTORICAL RESULTS K, pl 3.9 3.3 - 4.9 mmol/L HISTORICAL RESULTS Chloride 105 97 - 110 mmol/L HISTORICAL RESULTS CO2 22 22 - 32 mmol/L HISTORICAL RESULTS A. gap 10 0 - 16 mmol/L HISTORICAL RESULTS Glucose 119 70 - 199 mg/dl HISTORICAL RESULTS BUN 69(H) 8 - 25 mg/dl HISTORICAL RESULTS Creatinine 12.66(H) 0.70 - 1.30 mg/dl HISTORICAL RESULTS Calcium 8.0(L) 8.6 - 10.3 mg/dl HISTORICAL RESULTS Plasma 02/17/2013 10:0 0 PM CDT us Momin D Teto LAB BLOOD ORDERABLES Final Resul t Performing Organization Address [facility] Co de Phone Number HISTORICAL RESULTS * (ABNORMAL) Blood cell count (CBC) (02/17/2013 10:00 PM CDT) WBC 10.6(H) 3.8 - 9.8 K/cumm HISTORICAL RESULTS RBC 3.46(L) 4.50 - 5.70 M/cumm HISTORICAL RESULTS Hgb 9.7(L) 13.8 - 17.2 g/dl HISTORICAL RESULTS Hct 29.4(L) 40.7 - 50.3 % HISTORICAL RESULTS MCV 85.0 80.0 - 97.6 fl HISTORICAL RESULTS MCH 28.1 26.7 - 33.7 pg HISTORICAL RESULTS MCHC 33.1 32.7 - 35.5 g/dl HISTORICAL RESULTS Rdw 14.9(H) 11.8 - 14.6 % HISTORICAL RESULTS Platelets 202 140 - 440 K/cumm HISTORICAL RESULTS MPV 7.4 6.8 - 10.4 fl HISTORICAL RESULTS Neutrophils 72.5 38.7 - 74.5 % HISTORICAL RESULTS Lymphocytes 11.2(L) 20.0 - 54.3 % HISTORICAL RESULTS Monos 10.4 4.3 - 13.5 % HISTORICAL RESULTS Eosinophils 5.4 0.0 - 6.0 % HISTORICAL RESULTS Basophils 0.5 0.0 - 3.0 % HISTORICAL RESULTS Neutrophils, abs 7.7(H) 1.8 - 6.6 K/cumm HISTORICAL RESULTS Lymphocytes, abs 1.2 1.2 - 3.3 K/cumm HISTORICAL RESULTS Monocytes, absolute 1.1 0.2 - 1.2 K/cumm HISTORICAL RESULTS Eosinophils, abs 0.6(H) 0.0 - 0.5 K/cumm HISTORICAL RESULTS Basophils, abs 0.1 0.0 - 0.2 K/cumm HISTORICAL RESULTS Blood specimen (specimen) 02/17/2013 10:00 PM CDT [employer] LAB BLOOD ORDERABLES Final Resul t Performing Organization Address [facility] de Phone Number HISTORICAL RESULTS * (ABNORMAL) Plasma basic metabolic panel (02/17/2013 6:27 AM CDT) Sodium 136 135 - 145 mmol/L HISTORICAL RESULTS K, pl 3.8 3.3 - 4.9 mmol/L HISTORICAL RESULTS Chloride 104 97 - 110 mmol/L HISTORICAL RESULTS CO2 21(L) 22 - 32 mmol/L HISTORICAL RESULTS A. gap 11 0 - 16 mmol/L HISTORICAL RESULTS Glucose 105 70 - 199 mg/dl HISTORICAL RESULTS BUN 68(H) 8 - 25 mg/dl HISTORICAL RESULTS Creatinine 12.58(H) 0.70 - 1.30 mg/dl HISTORICAL RESULTS Calcium 8.1(L) 8.6 - 10.3 mg/dl HISTORICAL RESULTS Plasma 02/17/2013 6:27 AM CDT [employer] LAB BLOOD ORDERABLES Final Resul t Performing Organization Address [facility] de Phone Number HISTORICAL RESULTS * Blood calcium, ionized (02/15/2013 10:41 PM CDT) Ca, ionized, bld 4.63 4.50 - 5.10 mg/dl HISTORICAL RESULTS Blood specimen (specimen) 02/15/2013 10:41 PM CDT Picket D Teto LAB BLOOD ORDERABLES Final Resul t Performing Organization Address City/[facility] de Phone Number HISTORICAL RESULTS * (ABNORMAL) Serum creatine kinase (CK) (02/15/2013 10:41 PM CDT) CK 3353(H) 30 - 200 Units/L HISTORICAL RESULTS Serum 02/15/2013 10:4 1 PM CDT [employer] LAB BLOOD ORDERABLES Final Resul t Performing Organization Address [facility] de Phone Number HISTORICAL RESULTS * (ABNORMAL) Plasma basic metabolic panel (02/15/2013 10:41 PM CDT) Sodium 135 135 - 145 mmol/L HISTORICAL RESULTS K, pl 4.2 3.3 - 4.9 mmol/L HISTORICAL RESULTS Chloride 104 97 - 110 mmol/L HISTORICAL RESULTS CO2 20(L) 22 - 32 mmol/L HISTORICAL RESULTS A. gap 11 0 - 16 mmol/L HISTORICAL RESULTS Glucose 114 70 - 199 mg/dl HISTORICAL RESULTS BUN 65(H) 8 - 25 mg/dl HISTORICAL RESULTS Creatinine 11.41(H) 0.70 - 1.30 mg/dl HISTORICAL RESULTS Calcium 8.0(L) 8.6 - 10.3 mg/dl HISTORICAL RESULTS Plasma 02/15/2013 10:4 1 PM CDT [employer] LAB BLOOD ORDERABLES Final Resul t Performing Organization Address [facility] de Phone Number HISTORICAL RESULTS * (ABNORMAL) Serum uric acid (02/15/2013 10:41 PM CDT) Uric acid 10.1(H) 3.0 - 8.0 mg/dl HISTORICAL RESULTS Serum 02/15/2013 10:4 1 PM CDT [employer] LAB BLOOD ORDERABLES Final Resul t Performing Organization Address [facility] de Phone Number HISTORICAL RESULTS * (ABNORMAL) Blood cell count (CBC) (02/15/2013 10:41 PM CDT) WBC 10.7(H) 3.8 - 9.8 K/cumm HISTORICAL RESULTS RBC 3.71(L) 4.50 - 5.70 M/cumm HISTORICAL RESULTS Hgb 10.5(L) 13.8 - 17.2 g/dl HISTORICAL RESULTS Hct 30.8(L) 40.7 - 50.3 % HISTORICAL RESULTS MCV 83.2 80.0 - 97.6 fl HISTORICAL RESULTS MCH 28.3 26.7 - 33.7 pg HISTORICAL RESULTS MCHC 34.0 32.7 - 35.5 g/dl HISTORICAL RESULTS Rdw 13.9 11.8 - 14.6 % HISTORICAL RESULTS Platelets 164 140 - 440 K/cumm HISTORICAL RESULTS MPV 8.0 6.8 - 10.4 fl HISTORICAL RESULTS Neutrophils 72.3 38.7 - 74.5 % HISTORICAL RESULTS Lymphocytes 11.5(L) 20.0 - 54.3 % HISTORICAL RESULTS Monos 9.2 4.3 - 13.5 % HISTORICAL RESULTS Eosinophils 6.6(H) 0.0 - 6.0 % HISTORICAL RESULTS Basophils 0.4 0.0 - 3.0 % HISTORICAL RESULTS Neutrophils, abs 7.7(H) 1.8 - 6.6 K/cumm HISTORICAL RESULTS Lymphocytes, abs 1.2 1.2 - 3.3 K/cumm HISTORICAL RESULTS Monocytes, absolute 1.0 0.2 - 1.2 K/cumm HISTORICAL RESULTS Eosinophils, abs 0.7(H) 0.0 - 0.5 K/cumm HISTORICAL RESULTS Basophils, abs 0.0 0.0 - 0.2 K/cumm HISTORICAL RESULTS Blood specimen (specimen) 02/15/2013 10:41 PM CDT Picket D Teto LAB BLOOD ORDERABLES Final Resul t Performing Organization Address City/[facility] Co de Phone Number HISTORICAL RESULTS * Serum antinuclear ab (APOORVA) (02/15/2013 10:41 PM CDT) APOORVA, qual Negative Negative HISTORICAL RESULTS Serum 02/15/2013 10:4 1 PM CDT Picket D Teto LAB BLOOD ORDERABLES Final Resul t Performing Organization Address City/[facility] Co de Phone Number HISTORICAL RESULTS * Serum antineutrophil cytoplasmic ab (ANCA) (02/15/2013 10:41 PM CDT) ANCA Negative HISTORICAL RESULTS Serum 02/15/2013 10:4 1 PM CDT [employer] LAB BLOOD ORDERABLES Final Resul t Performing Organization Address [facility] de Phone Number HISTORICAL RESULTS * Serum complement C4, quantitative (02/15/2013 1:45 PM CDT) Complement C4 19.4 12.0 - 54.0 mg/dl HISTORICAL RESULTS Serum 02/15/2013 1:45 PM CDT [employer] LAB BLOOD ORDERABLES Final Resul t Performing Organization Address [facility] Phone Number HISTORICAL RESULTS * Serum complement C3, quantitative (02/15/2013 1:45 PM CDT) Complement C3 96.1 83.0 - 185.0 mg/dl HISTORICAL RESULTS Serum 02/15/2013 1:45 PM CDT [employer] LAB BLOOD ORDERABLES Final Resul t Performing Organization Address [facility] Phone Number HISTORICAL RESULTS * (ABNORMAL) Serum complement C2 (02/15/2013 1:45 PM CDT) Complement C2 49(H) 25 - 47 Units/ml HISTORICAL RESULTS Comment:{Testing performed b y: [facility] [place] [address].} Serum 02/15/2013 1:45 PM CDT [employer] LAB BLOOD ORDERABLES Final Resul t Performing Organization Address [facility] de Phone Number HISTORICAL RESULTS * Serum calcium, ionized (02/15/2013 8:07 AM CDT) Ca, ionized, sr 4.69 4.50 - 5.10 mg/dl HISTORICAL RESULTS Serum 02/15/2013 8:07 AM CDT [employer] LAB BLOOD ORDERABLES Final Resul t Performing Organization Address [facility] de Phone Number HISTORICAL RESULTS * (ABNORMAL) Plasma comprehensive metabolic panel (2013 9:17 PM CDT) Sodium 134(L) 135 - 145 mmol/L HISTORICAL RESULTS K, pl 4.2 3.3 - 4.9 mmol/L HISTORICAL RESULTS Chloride 105 97 - 110 mmol/L HISTORICAL RESULTS CO2 18(L) 22 - 32 mmol/L HISTORICAL RESULTS A. gap 11 0 - 16 mmol/L HISTORICAL RESULTS Glucose 111 70 - 199 mg/dl HISTORICAL RESULTS BUN 61(H) 8 - 25 mg/dl HISTORICAL RESULTS Creatinine 10.47(H) 0.70 - 1.30 mg/dl HISTORICAL RESULTS Calcium 7.9(L) 8.6 - 10.3 mg/dl HISTORICAL RESULTS Protein, pl 4.7(L) 6.5 - 8.5 g/dl HISTORICAL RESULTS Alb 2.3(L) 3.6 - 5.0 g/dl HISTORICAL RESULTS Bilirubin 0.4 0.3 - 1.1 mg/dl HISTORICAL RESULTS Alk phos 45 38 - 126 Units/L HISTORICAL RESULTS AST 157(H) 11 - 47 Units/L HISTORICAL RESULTS ALT 408(H) 7 - 53 Units/L HISTORICAL RESULTS Plasma 2013 9:17 PM CDT [employer] Maggy Bobbyl LAB BLOOD ORDERABLES Final Resul t Performing Organization Address [facility] de Phone Number HISTORICAL RESULTS * (ABNORMAL) Blood cell count (CBC) (2013 9:17 PM CDT) WBC 9.8 3.8 - 9.8 K/cumm HISTORICAL RESULTS RBC 3.97(L) 4.50 - 5.70 M/cumm HISTORICAL RESULTS Hgb 11.3(L) 13.8 - 17.2 g/dl HISTORICAL RESULTS Hct 32.8(L) 40.7 - 50.3 % HISTORICAL RESULTS MCV 82.6 80.0 - 97.6 fl HISTORICAL RESULTS MCH 28.4 26.7 - 33.7 pg HISTORICAL RESULTS MCHC 34.4 32.7 - 35.5 g/dl HISTORICAL RESULTS Rdw 14.0 11.8 - 14.6 % HISTORICAL RESULTS Platelets 129(L) 140 - 440 K/cumm HISTORICAL RESULTS MPV 7.4 6.8 - 10.4 fl HISTORICAL RESULTS Neutrophils 69.9 38.7 - 74.5 % HISTORICAL RESULTS Lymphocytes 12.1(L) 20.0 - 54.3 % HISTORICAL RESULTS Monos 10.3 4.3 - 13.5 % HISTORICAL RESULTS Eosinophils 7.4(H) 0.0 - 6.0 % HISTORICAL RESULTS Basophils 0.3 0.0 - 3.0 % HISTORICAL RESULTS Neutrophils, abs 6.8(H) 1.8 - 6.6 K/cumm HISTORICAL RESULTS Lymphocytes, abs 1.2 1.2 - 3.3 K/cumm HISTORICAL RESULTS Monocytes, absolute 1.0 0.2 - 1.2 K/cumm HISTORICAL RESULTS Eosinophils, abs 0.7(H) 0.0 - 0.5 K/cumm HISTORICAL RESULTS Basophils, abs 0.0 0.0 - 0.2 K/cumm HISTORICAL RESULTS Blood specimen (specimen) 2013 9:17 PM CDT Liliane Irene LAB BLOOD ORDERABLES Final Resul t Performing Organization Address City/State/[facility] Co de Phone Number HISTORICAL RESULTS * Urine (aerobic) culture (2013 6:33 PM CDT) Urine (Unknown) 2013 6 :33 PM CDT 2013 7:31 PM CDT Narrative HISTORICAL RESULTS - 02/16/2013 11:19 AM CDT No growth Historical Provider LAB MICROBIOLOGY - GENERA L ORDERABLES Final Result HISTORICAL RESULTS * (ABNORMAL) Urinalysis (2013 6:33 PM CDT) Color, ur Colorless Yellow HISTORICAL RESULTS Clarity, ur Clear Clear HISTORIC AL RESULTS Specific gravity, ur 1.004 1.003 - 1.030 HISTORICAL RESULTS pH, ur 6.0 5.0 - 8.0 HISTORICAL RESULTS Protein, ur 1+(A) Trace HISTORIC AL RESULTS Glucose, ur Negative Negative HISTORIC AL RESULTS Ketones, ur Negative Negative HISTORIC AL RESULTS Bilirubin, ur Negative Negative HISTOR ICAL RESULTS U Blood 2+(A) Negative HISTORICAL RESULTS Urobilinogen, quant, ur <2.0 0.0 - 2.0 mg/dl HISTORICAL RESULTS Nitrites, ur Negative Negative HISTORI NETTA RESULTS Leukocyte esterase, ur Negative Negative HISTORICAL RESULTS Urine 2013 6:33 PM CDT Patti Lemon Curve LAB BLOOD ORDERABLES Final Resul t Performing Organization Address City/[facility] Co de Phone Number HISTORICAL RESULTS * (ABNORMAL) Urine microscopy (2013 6:33 PM CDT) RBC, ur 10(H) 0 - 3 /hpf HISTORICA L RESULTS WBC, ur 1 0 - 5 /hpf HISTORICA L RESULTS Bacteria, ur Trace Trace HISTORI NETTA RESULTS Epithelial cells, renal, ur 0 0 - 0 /hpf HISTORICAL RESULTS Mucus, ur Small /hpf HISTORICAL RESULTS Urine 2013 6:33 PM CDT Patti Alexander BLOVES LAB BLOOD ORDERABLES Final Resul t Performing Organization Address [facility] Co de Phone Number HISTORICAL RESULTS * Urine creatinine (2013 3:46 PM CDT) Creatinine, ur 39.85 mg/dl HISTO RICAL RESULTS Urine 2013 3:46 PM CDT Patti Lemon Curve LAB BLOOD ORDERABLES Final Resul t Performing Organization Address [facility] Co de Phone Number HISTORICAL RESULTS * Urine protein (2013 3:46 PM CDT) Protein, ur, quant 58.6 mg/dl H ISTORICAL RESULTS Comment: Interpretive Data Urine protein values from patients receiving aminoglycosides may be falsely elevated. Current interpretive data was last revised on 05. Urine 2013 3:46 PM CDT us Patti Pelaez LAB BLOOD ORDERABLES Final Resul t HISTORICAL RESULTS * US Retroperitoneal Complete (2013 2:46 PM CDT) Anatomical Region Laterality Modality Abdomen N/A Ultrasound 2013 2:46 PM CDT Narrative 2013 4:23 PM CDT ELIANE IBARRA M.D. GIL TOMAS M.D. FINAL REPORT The radiology attending physician has personally reviewed this study, and has reviewed and/or edited this written report and agrees with it. ACC# ??Date Time ??Exam [id number] 2013 14:46:00 [id number] US Retroper cmp EXAMINATION: ?COMPLETE RENAL SONOGRAM HISTORY: 33-year-old man with rhabdomyolysis and persistently increasing creatinine. FINDINGS: The echogenicity of both kidneys is normal. ??There is no hydronephrosis in either kidney. ??There are no renal calculi visualized. The right kidney measures 12.2 cm in length, and the left, 15.4 cm in length. ??The bladder is decompressed. ??There is a Field catheter in place. ?? IMPRESSION: 1. ??No hydronephrosis. 2. Nonspecific enlargement of the left kidney. There is no prior imaging to determine chronicity. Inflammation may cause this finding in the acute setting. ?? Requested By: PATTI PELAEZ M.D. Dictated By: ?? GIL TOMAS M.D. ??on Feb ??2012 ??2:59P This document has been electronically signed by: ELIANE IBARRA M.D. on 2013 ??4:23P Procedure Note Provider, MD Naheed - 11/13/2016 ELIANE IBARRA M.D. GIL TOMAS M.D. FINAL REPORT The radiology attending physician has personally reviewed this study, and has reviewed and/or edited this written report and agrees with it. ACC# Date Time Exam [id number] 2013 14:46:00 [id number] US Retroper cmp EXAMINATION: COMPLETE RENAL SONOGRAM HISTORY: 33-year-old man with rhabdomyolysis and persistently increasing creatinine. FINDINGS: The echogenicity of both kidneys is normal. There is no hydronephrosis in either kidney. There are no renal calculi visualized. The right kidney measures 12.2 cm in length, and the left, 15.4 cm in length. The bladder is decompressed. There is a Field catheter in place. IMPRESSION: 1. No hydronephrosis. 2. Nonspecific enlargement of the left kidney. There is no prior imaging to determine chronicity. Inflammation may cause this finding in the acute setting. Requested By: PATTI PELAEZ M.D. Dictated By: GIL TOMAS M.D. on 2013 2:59P This document has been electronically signed by: ELIANE IBARRA M.D. on 2013 4:23P Historical Provider MD FERGUSON US PROCEDURES Final R esult * (ABNORMAL) Plasma basic metabolic panel (2013 1:06 PM CDT) K, pl 4.2 3.3 - 4.9 mmol/L HISTORICAL RESULTS Sodium 136 135 - 145 mmol/L HISTORICAL RESULTS Chloride 106 97 - 110 mmol/L HISTORICAL RESULTS CO2 19(L) 22 - 32 mmol/L HISTORICAL RESULTS A. gap 11 0 - 16 mmol/L HISTORICAL RESULTS Glucose 91 70 - 199 mg/dl HISTORICAL RESULTS BUN 57(H) 8 - 25 mg/dl HISTORICAL RESULTS Creatinine 9.79(H) 0.70 - 1.30 mg/dl HISTORICAL RESULTS Calcium 7.9(L) 8.6 - 10.3 mg/dl HISTORICAL RESULTS Plasma 2013 1:06 PM CDT Patti Pelaez LAB BLOOD ORDERABLES Final Resul t HISTORICAL RESULTS * All Microbiology Report Section (2013 12:00 AM CDT) 2013 Narrative HISTORICAL RESULTS - 02/16/2013 12:41 PM CDT ? [facility] ?[facility] ?[place], [facility] [address] ? Patient Name: ??GIOVANA LEBRON ? Med Rec Number: [id number] ? Fin Number: ?[id number] ? Date: ?1980 ? Sex/Age: ? Male 33 years ? Admit Date: ?02/10/2013 ? Discharge Date: ? Doctor: ?[facility] , 1302 ? Facility: ?[facility] ? Location: ?0102 [id number] 01 ?* Abnormal ??A Alert ??f Footnote ??^ Corrected ??L Low ??H High ?i Interp Data ??@ Ref Lab ? Chart Type:Cumulative ?* * * * MICROBIOLOGY - URINE * * * * ?PROCEDURE: Urine Culture ? SOURCE: Urine ? COLLECTED: 08/01/13 ??1833 ?BODY SITE: ? STARTED: 02/14/13 ??1932 ? FREE TEXT SOURCE: ? FINAL REPORT ? REPORTED: 02/16/13 1119 ? No growth us Historical Provider LAB MICROBIOLOGY - GENERA L ORDERABLES Final Result Performing Organization Address City/State/[facility] Co de Phone Number HISTORICAL RESULTS * (ABNORMAL) Plasma hepatic function panel (02/13/2013 8:46 PM CDT) Protein, pl 4.5(L) 6.5 - 8.5 g/dl HISTORICAL RESULTS Alb 2.1(L) 3.6 - 5.0 g/dl HISTORICAL RESULTS Bilirubin 0.4 0.3 - 1.1 mg/dl HISTORICAL RESULTS Bilirubin, direct 0.1 0.0 - 0.3 mg/dl HISTORICAL RESULTS Alk phos 46 38 - 126 Units/L HISTORICAL RESULTS AST 209(H) 11 - 47 Units/L HISTORICAL RESULTS ALT 566(H) 7 - 53 Units/L HISTORICAL RESULTS Plasma 02/13/2013 8:46 PM CDT Dionisio Patterson MD LAB BLOOD ORDERABLES Nettie l Result Performing Organization Address City/State/[facility] de Phone Number HISTORICAL RESULTS * (ABNORMAL) Serum creatine kinase (CK) (02/13/2013 8:46 PM CDT) CK 6636(H) 30 - 200 Units/L HISTORICAL RESULTS Serum 02/13/2013 8:46 PM CDT Dionisio Patterson MD LAB BLOOD ORDERABLES Nettie l Result Performing Organization Address [facility] de Phone Number HISTORICAL RESULTS * (ABNORMAL) Plasma basic metabolic panel (02/13/2013 8:46 PM CDT) Sodium 136 135 - 145 mmol/L HISTORICAL RESULTS K, pl 4.5 3.3 - 4.9 mmol/L HISTORICAL RESULTS Chloride 109 97 - 110 mmol/L HISTORICAL RESULTS CO2 18(L) 22 - 32 mmol/L HISTORICAL RESULTS A. gap 9 0 - 16 mmol/L HISTORICAL RESULTS Glucose 103 65 - 199 mg/dl HISTORICAL RESULTS BUN 55(H) 8 - 25 mg/dl HISTORICAL RESULTS Creatinine 8.96(H) 0.70 - 1.30 mg/dl HISTORICAL RESULTS Calcium 7.6(L) 8.6 - 10.3 mg/dl HISTORICAL RESULTS Plasma 02/13/2013 8:46 PM CDT Dionisio Patterson MD LAB BLOOD ORDERABLES Nettie l Result Performing Organization Address [facility] de Phone Number HISTORICAL RESULTS * Plasma prothrombin time (PT) (02/13/2013 8:46 PM CDT) Pathologist [facility] Prothrombin time (PT) 11.6 9.0 - 12.0 seconds HISTORICAL RESULTS INR 1.10 0.90 - 1.20 HISTORIC AL RESULTS Comment: Interpretive Data Inpatient therapeutic ranges* Atrial fibrillation ?2.0-3.0 INR Venous thrombo-embolism ?2.0-3.0 INR Bioprosthetic heart valve ?* Mechanical heart valve, bileaflet or tilting disk,aortic position ? 2.0-3.0 INR All other,or bileaflet or tilting disk, in mitral position ? 2.5-3.5 INR *See the pharmacy resource directory (PHRED) for an updated copy of the Tool Book at [email or web address] Current Interpretive Data was last revised 2011. Plasma 02/13/2013 8:46 PM CDT Dionisio Patterson MD LAB BLOOD ORDERABLES Nettie l Result Performing Organization Address [facility] de Phone Number HISTORICAL RESULTS * Plasma fibrinogen (02/13/2013 8:46 PM CDT) Pathologist [facility] Fibrinogen 386 170 - 400 mg/dl HISTORICAL RESULTS Plasma 02/13/2013 8:46 PM CDT Dionisio Patterson MD LAB BLOOD ORDERABLES Nettie l Result Performing Organization Address [facility] de Phone Number HISTORICAL RESULTS * (ABNORMAL) Blood cell count (CBC) (02/13/2013 8:46 PM CDT) WBC 9.6 3.8 - 9.8 K/cumm HISTORICAL RESULTS RBC 3.97(L) 4.50 - 5.70 M/cumm HISTORICAL RESULTS Hgb 11.2(L) 13.8 - 17.2 g/dl HISTORICAL RESULTS Hct 33.9(L) 40.7 - 50.3 % HISTORICAL RESULTS MCV 85.4 80.0 - 97.6 fl HISTORICAL RESULTS MCH 28.3 26.7 - 33.7 pg HISTORICAL RESULTS MCHC 33.1 32.7 - 35.5 g/dl HISTORICAL RESULTS Rdw 14.1 11.8 - 14.6 % HISTORICAL RESULTS Platelets 115(L) 140 - 440 K/cumm HISTORICAL RESULTS MPV 7.7 6.8 - 10.4 fl HISTORICAL RESULTS Neutrophils 74.7(H) 38.7 - 74.5 % HISTORICAL RESULTS Lymphocytes 10.0(L) 20.0 - 54.3 % HISTORICAL RESULTS Monos 9.1 4.3 - 13.5 % HISTORICAL RESULTS Eosinophils 5.9 0.0 - 6.0 % HISTORICAL RESULTS Basophils 0.3 0.0 - 3.0 % HISTORICAL RESULTS Neutrophils, abs 7.2(H) 1.8 - 6.6 K/cumm HISTORICAL RESULTS Lymphocytes, abs 1.0(L) 1.2 - 3.3 K/cumm HISTORICAL RESULTS Monocytes, absolute 0.9 0.2 - 1.2 K/cumm HISTORICAL RESULTS Eosinophils, abs 0.6(H) 0.0 - 0.5 K/cumm HISTORICAL RESULTS Basophils, abs 0.0 0.0 - 0.2 K/cumm HISTORICAL RESULTS Blood specimen (specimen) 02/13/2013 8:46 PM CDT Dionisio Patterson MD LAB BLOOD ORDERABLES Nettie l Result Performing Organization Address City/State/[facility] Co de Phone Number HISTORICAL RESULTS * Plasma amylase (02/13/2013 8:46 PM CDT) Queta, pl 60 28 - 100 Units/L HISTORICAL RESULTS Plasma 02/13/2013 8:46 PM CDT Dionisio Patterson MD LAB BLOOD ORDERABLES Nettie l Result Performing Organization Address [facility] de Phone Number HISTORICAL RESULTS * XR Chest 1 View (02/13/2013 6:16 PM CDT) Anatomical Region Laterality Modality Body, Chest N/A Radiographic Ree ging 02/13/2013 6:16 PM CDT Narrative 2013 9:48 AM CDT KAISER HUNTER M.D. FINAL REPORT ACC# ??Date Time ??Exam [id number] Feb 13, 2013 18:16:00 [id number] Chest 1 view Frontal EXAMINATION: ?CHEST, ONE VIEW, FRONTAL IMPRESSION: ?? Comparison February 12, 2013. Right internal jugular central venous line remains in place with the tip at the superior vena cava/right atrial junction. Interval decrease in lung volumes seen. Patchy bibasalar opacity left greater than right has developed, compatible with atelectasis with possible component of asymmetric pulmonary edema on the left, given the clinical history. No pneumothorax seen. Heart size remains within normal limits. Requested By: DIONISIO PATTERSON M.D. Dictated By: ?? KAISER HUNTER M.D. ??on Feb ??2012 ??9:48A This document has been electronically signed by: KAISER HUNTER M.D. on Feb ??2012 ??9:48A Procedure Note Provider, Naheed, - 11/13/2016 KAISER HUNTER M.D. FINAL REPORT ACC# Date Time Exam [id number] Feb 13, 2013 18:16:00 [id number] Chest 1 view Frontal EXAMINATION: CHEST, ONE VIEW, FRONTAL IMPRESSION: Comparison February 12, 2013. Right internal jugular central venous line remains in place with the tip at the superior vena cava/right atrial junction. Interval decrease in lung volumes seen. Patchy bibasalar opacity left greater than right has developed, compatible with atelectasis with possible component of asymmetric pulmonary edema on the left, given the clinical history. No pneumothorax seen. Heart size remains within normal limits. Requested By: DIONISIO PATTERSON M.D. Dictated By: KAISER HUNTER M.D. on 2013 9:48A This document has been electronically signed by: KAISER HUNTER M.D. on 2013 9:48A us Historical Provider IMKarrie XR PROCEDURES Final R esult * US Duplex Scan of Aorta; Inferior Vena Cava, Iliac, Complete (02/13/2013 9:36 AM CDT) Anatomical Region Laterality Modality Vascular Ultrasound 02/13/2013 9:36 AM CDT Narrative 02/13/2013 10:35 AM CDT Tasha PITT M.D. FINAL REPORT The radiology attending physician has personally reviewed this study, and has reviewed and/or edited this written report and agrees with it. ACC# ??Date Time ??Exam [id number] Feb 13, 2013 09:36:00 [id number] [facility] EXAMINATION: ?LIVER DOPPLER HISTORY: ??32-year-old man left upper extremity compartment syndrome, rhabdomyolysis, and transaminitis. 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 FINDINGS: Color Doppler and spectral analysis were used to evaluate the hepatic vasculature. ??The main portal vein as well as the right and left branches have hepatopetal (antegrade) flow. ??No thrombosis is visualized. The middle, right, and left hepatic veins are also patent with antegrade flow. ??The inferior vena cava at the level of the liver is patent with appropriate directional flow. ??The visualized main hepatic artery is patent with antegrade flow. ?? IMPRESSION: ?? No Doppler evidence of thrombosis. ?? Requested By: PHYLLIS VASQUEZ M.D. Dictated By: ?? GIL TOMAS M.D. ??on Feb 13 2013 10:21A This document has been electronically signed by: DONTE MEEK M.D. on Feb 13 2013 10:35A Procedure Note Provider, MD Naheed - 11/13/2016 DONTE MEEK M.D. GIL TOMAS M.D. FINAL REPORT The radiology attending physician has personally reviewed this study, and has reviewed and/or edited this written report and agrees with it. ACC# Date Time Exam [id number] Feb 13, 2013 09:36:00 [id number] [facility] EXAMINATION: LIVER DOPPLER HISTORY: 32-year-old man left upper extremity compartment syndrome, rhabdomyolysis, and transaminitis. 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 FINDINGS: Color Doppler and spectral analysis were used to evaluate the hepatic vasculature. The main portal vein as well as the right and left branches have hepatopetal (antegrade) flow. No thrombosis is visualized. The middle, right, and left hepatic veins are also patent with antegrade flow. The inferior vena cava at the level of the liver is patent with appropriate directional flow. The visualized main hepatic artery is patent with antegrade flow. IMPRESSION: No Doppler evidence of thrombosis. Requested By: PHYLLIS VASQUEZ M.D. Dictated By: GIL TOMAS M.D. on Feb 13 2013 10:21A This document has been electronically signed by: DONTE MEEK M.D. on Feb 13 2013 10:35A Historical Provider CV VASCULAR PROCEDURES Fi nal Result * Clostridium difficile toxin (02/13/2013 12:59 AM CDT) Stool (Unknown) 02/13/2013 1 2:59 AM CDT 02/13/2013 2:12 AM CDT Narrative HISTORICAL RESULTS - 2013 5:17 AM CDT Negative for: Clostridium difficile toxin. Historical Provider LAB MICROBIOLOGY - GENERA L ORDERABLES Final Result Performing Organization Address [facility] de Phone Number HISTORICAL RESULTS * (ABNORMAL) Serum creatine kinase (CK) (02/13/2013 12:54 AM CDT) [place] [address]404(C) 30 - 200 Units/L HISTORICAL RESULTS Serum 02/13/2013 12:5 4 AM CDT Joe Cruz MD LAB BLOOD ORDERABLES Final Result Performing Organization Address [facility] Co de Phone Number HISTORICAL RESULTS * (ABNORMAL) Plasma basic metabolic panel (02/13/2013 12:54 AM CDT) Sodium 136 135 - 145 mmol/L HISTORICAL RESULTS K, pl 4.5 3.3 - 4.9 mmol/L HISTORICAL RESULTS Chloride 109 97 - 110 mmol/L HISTORICAL RESULTS CO2 18(L) 22 - 32 mmol/L HISTORICAL RESULTS A. gap 9 0 - 16 mmol/L HISTORICAL RESULTS Glucose 113 65 - 199 mg/dl HISTORICAL RESULTS BUN 51(H) 8 - 25 mg/dl HISTORICAL RESULTS Creatinine 8.31(H) 0.70 - 1.30 mg/dl HISTORICAL RESULTS Calcium 7.4(L) 8.6 - 10.3 mg/dl HISTORICAL RESULTS Plasma 02/13/2013 12:5 4 AM CDT Joe Cruz MD LAB BLOOD ORDERABLES Final Result Performing Organization Address City/[facility]/ZIP Co de Phone Number HISTORICAL RESULTS * Plasma phosphorus (02/13/2013 12:54 AM CDT) Phosphorus, pl 4.0 2.3 - 4.3 mg/dl HISTORICAL RESULTS Plasma 02/13/2013 12:5 4 AM CDT Joe Cruz MD LAB BLOOD ORDERABLES Final Result Performing Organization Address [facility] de Phone Number HISTORICAL RESULTS * Serum magnesium (02/13/2013 12:54 AM CDT) Pathologist [facility] Magnesium 1.9 1.4 - 2.5 mg/dl HISTORICAL RESULTS Serum 02/13/2013 12:5 4 AM CDT Joe Cruz MD LAB BLOOD ORDERABLES Final Result Performing Organization Address [facility] de Phone Number HISTORICAL RESULTS * (ABNORMAL) Blood cell count (CBC) (02/13/2013 12:54 AM CDT) WBC 12.6(H) 3.8 - 9.8 K/cumm HISTORICAL RESULTS RBC 4.25(L) 4.50 - 5.70 M/cumm HISTORICAL RESULTS Hgb 12.2(L) 13.8 - 17.2 g/dl HISTORICAL RESULTS Hct 35.6(L) 40.7 - 50.3 % HISTORICAL RESULTS MCV 83.9 80.0 - 97.6 fl HISTORICAL RESULTS MCH 28.7 26.7 - 33.7 pg HISTORICAL RESULTS MCHC 34.3 32.7 - 35.5 g/dl HISTORICAL RESULTS Rdw 13.7 11.8 - 14.6 % HISTORICAL RESULTS Platelets 110(L) 140 - 440 K/cumm HISTORICAL RESULTS MPV 7.5 6.8 - 10.4 fl HISTORICAL RESULTS Neutrophils 88.3(H) 38.7 - 74.5 % HISTORICAL RESULTS Lymphocytes 4.7(L) 20.0 - 54.3 % HISTORICAL RESULTS Monos 6.1 4.3 - 13.5 % HISTORICAL RESULTS Eosinophils 0.7 0.0 - 6.0 % HISTORICAL RESULTS Basophils 0.2 0.0 - 3.0 % HISTORICAL RESULTS Neutrophils, abs 11.2(H) 1.8 - 6.6 K/cumm HISTORICAL RESULTS Lymphocytes, abs 0.6(L) 1.2 - 3.3 K/cumm HISTORICAL RESULTS Monocytes, absolute 0.8 0.2 - 1.2 K/cumm HISTORICAL RESULTS Eosinophils, abs 0.1 0.0 - 0.5 K/cumm HISTORICAL RESULTS Basophils, abs 0.0 0.0 - 0.2 K/cumm HISTORICAL RESULTS Blood specimen (specimen) 02/13/2013 12:54 AM CDT Joe Cruz MD LAB BLOOD ORDERABLES Final Result Performing Organization Address [facility] de Phone Number HISTORICAL RESULTS * Plasma partial thromboplastin time (PTT) (02/13/2013 12:54 AM CDT) APTT 25.2 25.0 - 37.0 seconds HISTORICAL RESULTS Comment: Interpretive Data Therapeutic heparin range:60.0 - 94.0 sec based on correlation with therapeutic heparin activity range of 0.3 -0.7 Units/mL. Current interpretive data was last revised on 2011. Plasma 02/13/2013 12:5 4 AM CDT Dionisio Patterson MD LAB BLOOD ORDERABLES Nettie l Result Performing Organization Address [facility] de Phone Number HISTORICAL RESULTS * Plasma prothrombin time (PT) (02/13/2013 12:54 AM CDT) Prothrombin time (PT) 11.5 9.0 - 12.0 seconds HISTORICAL RESULTS INR 1.09 0.90 - 1.20 HISTORIC AL RESULTS Comment: Interpretive Data Inpatient therapeutic ranges* Atrial fibrillation ?2.0-3.0 INR Venous thrombo-embolism ?2.0-3.0 INR Bioprosthetic heart valve ?* Mechanical heart valve, bileaflet or tilting disk,aortic position ? 2.0-3.0 INR All other,or bileaflet or tilting disk, in mitral position ? 2.5-3.5 INR *See the pharmacy resource directory (PHRED) for an updated copy of the Tool Book at [email or web address] Current Interpretive Data was last revised 2011. Plasma 02/13/2013 12:5 4 AM CDT Dionisio Patterson MD LAB BLOOD ORDERABLES Nettie l Result Performing Organization Address City/[facility] Co de Phone Number HISTORICAL RESULTS * (ABNORMAL) Blood reticulocyte count (02/13/2013 12:54 AM CDT) Retics 2.0(H) 0.4 - 1.9 % HISTORICAL RESULTS Retics, absolute 0.084 0.015 - 0.092 M/cumm HISTORICAL RESULTS Blood specimen (specimen) 02/13/2013 12:54 AM CDT Dionisio Patterson MD LAB BLOOD ORDERABLES Nettie l Result Performing Organization Address City/[facility] Co de Phone Number HISTORICAL RESULTS * All Microbiology Report Section (02/13/2013 12:00 AM CDT) 02/13/2013 Narrative HISTORICAL RESULTS - 2013 6:23 AM CDT ? [facility] ?[facility] [place] ?[place] [address] ? Patient Name: ??GIOVANA LEBRON ? Med Rec Number: [id number] ? Fin Number: ?[id number] ? Date: ?1980 ? Sex/Age: ? Male 33 years ? Admit Date: ?02/10/2013 ? Discharge Date: ? Doctor: ?[facility] , 1302 ? Facility: ?[facility] ? Location: ?0102 [address] 01 ?* Abnormal ??A Alert ??f Footnote ??^ Corrected ??L Low ??H High ?i Interp Data ??@ Ref Lab ? Chart Type:Cumulative ?* * * * MICROBIOLOGY - GASTROINTESTINAL * * * * ?PROCEDURE: Clostridium difficile Toxin ? SOURCE: Stool ? COLLECTED: 02/13/13 ??0059 ?BODY SITE: ? STARTED: 02/13/13 ??0212 ? FREE TEXT SOURCE: ? FINAL REPORT ? REPORTED: 02/14/13 0517 ? Negative for: Clostridium difficile toxin. Historical Provider LAB MICROBIOLOGY - GENERA L ORDERABLES Final Result HISTORICAL RESULTS * ELECTROCARDIOGRAPHY (ECG) (02/13/2013) Narrative 02/13/2013 Ordered by an unspecified provider. Historical Provider ECG ORDERABLES Final Res ult * Blood potassium, mixed venous (02/12/2013 5:56 PM CDT) [facility] Potassium, bld 4.5 3.3 - 4.9 mmol/L HISTORICAL RESULTS Mixed venous blood 02/12/2013 5:56 PM CDT Patti Pelaez LAB BLOOD ORDERABLES Final Resul t HISTORICAL RESULTS * (ABNORMAL) Plasma basic metabolic panel (02/12/2013 5:56 PM CDT) Pathologist [facility] Sodium 135 135 - 145 mmol/L HISTORICAL RESULTS K, pl 4.3 3.3 - 4.9 mmol/L HISTORICAL RESULTS Chloride 108 97 - 110 mmol/L HISTORICAL RESULTS CO2 17(L) 22 - 32 mmol/L HISTORICAL RESULTS A. gap 10 0 - 16 mmol/L HISTORICAL RESULTS Glucose 98 65 - 199 mg/dl HISTORICAL RESULTS BUN 50(H) 8 - 25 mg/dl HISTORICAL RESULTS Creatinine 7.81(H) 0.70 - 1.30 mg/dl HISTORICAL RESULTS Calcium 7.3(L) 8.6 - 10.3 mg/dl HISTORICAL RESULTS Plasma 02/12/2013 5:56 PM CDT us Phyllis Vasquez MD LAB BLOOD ORDERABLES F inal Result Performing Organization Address [facility] de Phone Number HISTORICAL RESULTS * Extra slide preparation (02/12/2013 5:56 PM CDT) Extra slide prep Test Completed HISTORICAL RESULTS No specimen 02/12/2013 5:56 PM CDT Dionisio Patterson MD LAB BLOOD ORDERABLES Nettie l Result Performing Organization Address [facility] de Phone Number HISTORICAL RESULTS * MRI Upper Extremity Joint WO Contrast (02/12/2013 5:05 PM CDT) Anatomical Region Laterality Modality Upper Extremities N/A Magnetic Reson ance 02/12/2013 5:05 PM CDT Narrative 02/12/2013 5:19 PM CDT YESI MORENO M.D. FINAL REPORT ACC# ??Date Time ??Exam [id number] Feb 12, 2013 17:05:00 [id number] MRI JntUpper Extrm wo cont L EXAMINATION: ? MR left forearm without contrast HISTORY: ??Rhabdomyolysis FINDINGS: ??Recent radiographs showed soft tissue swelling of the forearm. MR examination of the left forearm is performed in 2 stations using an extremity coil. The station, sagittal short TR/TE and STIR images and transverse short TR/TE and fast and echo images are obtained. Intravenous contrast could not be administered due to renal failure. There is normal marrow signal intensity within the bones. The forearm is swollen with engorgement of the superficial lymphatics. There is generalized intramuscular edema throughout the majority of the muscles, especially the extensor muscles. A small amount of petechial hemorrhage is present in the distal extensor carpi ulnaris and extensor digitorum communis muscles around their central tendons. Mild fascial edema is present in the deep fascia, especially in the proximal forearm. There is no evidence of soft tissue gas or abscess. While there is generalized swelling of the muscles, their are architecture is relatively preserved. The muscles appear viable although contrast could not be administered. The arteries and veins are patent. IMPRESSION: ?? Rhabdomyolysis of the muscles of the volar and dorsal left forearm. Intravenous contrast could not be administered because of renal failure; however, the muscles appear viable. Requested By: VALENTINA PEDRAZA M.D. Dictated By: ?? YESI MORENO M.D. ??on Feb 12 2013 ??5:19P This document has been electronically signed by: YESI MORENO M.D. on Feb 12 2013 ??5:19P Procedure Note Provider, MD Naheed - 11/13/2016 YESI MORENO M.D. FINAL REPORT ACC# Date Time Exam [id number] Feb 12, 2013 17:05:00 [id number] MRI JntUpper Extrm wo cont L EXAMINATION: MR left forearm without contrast HISTORY: Rhabdomyolysis FINDINGS: Recent radiographs showed soft tissue swelling of the forearm. MR examination of the left forearm is performed in 2 stations using an extremity coil. The station, sagittal short TR/TE and STIR images and transverse short TR/TE and fast and echo images are obtained. Intravenous contrast could not be administered due to renal failure. There is normal marrow signal intensity within the bones. The forearm is swollen with engorgement of the superficial lymphatics. There is generalized intramuscular edema throughout the majority of the muscles, especially the extensor muscles. A small amount of petechial hemorrhage is present in the distal extensor carpi ulnaris and extensor digitorum communis muscles around their central tendons. Mild fascial edema is present in the deep fascia, especially in the proximal forearm. There is no evidence of soft tissue gas or abscess. While there is generalized swelling of the muscles, their are architecture is relatively preserved. The muscles appear viable although contrast could not be administered. The arteries and veins are patent. IMPRESSION: Rhabdomyolysis of the muscles of the volar and dorsal left forearm. Intravenous contrast could not be administered because of renal failure; however, the muscles appear viable. Requested By: VALENTINA PEDRAZA M.D. Dictated By: YESI MORENO M.D. on Feb 12 2013 5:19P This document has been electronically signed by: YESI MORENO M.D. on Feb 12 2013 5:19P Historical Provider [facility] MRI PROCEDURES Final Result * (ABNORMAL) Urinalysis (02/12/2013 3:29 PM CDT) Color, ur Colorless Yellow HISTORICAL RESULTS Clarity, ur Clear Clear HISTORIC AL RESULTS Specific gravity, ur 1.004 1.003 - 1.030 HISTORICAL RESULTS pH, ur 6.0 5.0 - 8.0 HISTORICAL RESULTS Protein, ur 1+(A) Trace HISTORIC AL RESULTS Glucose, ur Negative Negative HISTORIC AL RESULTS Ketones, ur Negative Negative HISTORIC AL RESULTS Bilirubin, ur Negative Negative HISTOR ICAL RESULTS U Blood 2+(A) Negative HISTORICAL RESULTS Urobilinogen, quant, ur <2.0 0.0 - 2.0 mg/dl HISTORICAL RESULTS Nitrites, ur Negative Negative HISTORI NETTA RESULTS Leukocyte esterase, ur Negative Negative HISTORICAL RESULTS Urine 02/12/2013 3:29 PM CDT Result [facility] [employer] BLOOD ORDERABLES Final Resul t Performing Organization Address [facility] Co de Phone Number HISTORICAL RESULTS * (ABNORMAL) Urine microscopy (02/12/2013 3:29 PM CDT) RBC, ur 5(H) 0 - 3 /hpf HISTORICA L RESULTS WBC, ur 1 0 - 5 /hpf HISTORICA L RESULTS Bacteria, ur Trace Trace HISTORI NETTA RESULTS Epithelial cells, renal, ur 0 0 - 0 /hpf HISTORICAL RESULTS Epithelial cells, squamous, ur 2 /lpf HISTORICAL RESULTS Mucus, ur Small /hpf HISTORICAL RESULTS Urine 02/12/2013 3:29 PM CDT [employer] LAB BLOOD ORDERABLES Final Resul t Performing Organization Address City/[facility] Co de Phone Number HISTORICAL RESULTS * Methicillin-resistant Staphylococcus aureus (MRSA) surveillance culture (02/12/2013 11:41 AM CDT) Nasal (Unknown) 02/12/2013 1 1:41 AM CDT 02/12/2013 12:15 PM CDT Impressions HISTORICAL RESULTS - 02/13/2013 1:26 PM CDT This test is for Infection Prevention surveillance; no charge to the patient. Narrative HISTORICAL RESULTS - 02/13/2013 1:26 PM CDT Negative Historical Provider MD LAB MICROBIOLOGY - GENERA L ORDERABLES Final Result Performing Organization Address [facility] Co de Phone Number HISTORICAL RESULTS * Critical result call back (02/12/2013 9:59 AM CDT) Date notified 02/12/2013 HISTO RICAL RESULTS Time notified 112 HISTOR ICAL RESULTS Test name Vancomycin Rnd HISTO RICAL RESULTS Called to Eugenia Gannon HISTORICAL RESULTS Credentials RN HISTORIC AL RESULTS Called by gisel HISTORICAL RESULTS No specimen 02/12/2013 9:59 AM CDT Phyllis Vasquez MD LAB BLOOD ORDERABLES F inal Result Performing Organization Address [facility] de Phone Number HISTORICAL RESULTS * (ABNORMAL) Serum vancomycin drug level (02/12/2013 9:59 AM CDT) Vancomycin 43.5(C) mcg/ml HISTORICA L RESULTS Serum 02/12/2013 9:59 AM CDT Phyllis Vasquez MD LAB BLOOD ORDERABLES F inal Result Performing Organization Address [facility] Co de Phone Number HISTORICAL RESULTS * (ABNORMAL) Plasma basic metabolic panel (02/12/2013 9:59 AM CDT) Sodium 136 135 - 145 mmol/L HISTORICAL RESULTS K, pl 4.5 3.3 - 4.9 mmol/L HISTORICAL RESULTS Chloride 109 97 - 110 mmol/L HISTORICAL RESULTS CO2 18(L) 22 - 32 mmol/L HISTORICAL RESULTS A. gap 9 0 - 16 mmol/L HISTORICAL RESULTS Glucose 115 65 - 199 mg/dl HISTORICAL RESULTS BUN 50(H) 8 - 25 mg/dl HISTORICAL RESULTS Creatinine 7.54(H) 0.70 - 1.30 mg/dl HISTORICAL RESULTS Calcium 7.3(L) 8.6 - 10.3 mg/dl HISTORICAL RESULTS Plasma 02/12/2013 9:59 AM CDT us Phyllis Vasquez MD LAB BLOOD ORDERABLES F inal Result HISTORICAL RESULTS * XR Chest 1 View (02/12/2013 5:16 AM CDT) Anatomical Region Laterality Modality Body, Chest N/A Radiographic Ree ging 02/12/2013 5:16 AM CDT Narrative 02/12/2013 9:14 AM CDT CHELO GÓMEZ M.D. FINAL REPORT ACC# ??Date Time ??Exam [id number] Feb 12, 2013 05:16:00 [id number] Chest 1 view Frontal EXAMINATION: ?? One View Portable Chest IMPRESSION: ?? A right internal jugular central catheter is present, tip overlies the superior vena cava. There is no pneumothorax. the heart is upper limits of normal in size there is a tortuous aorta. There is minimal left basilar infiltrate or atelectasis. No definite effusions however left costophrenic angle is not entirely imaged. . Requested By: JOE CRUZ M.D. Dictated By: ?? CHELO GÓMZE M.D. ??on Feb 12 2013 ??9:14A This document has been electronically signed by: CHELO GÓMEZ M.D. on Feb 12 2013 ??9:14A Procedure Note Provider, MD Naheed - 11/13/2016 CHELO GÓMEZ M.D. FINAL REPORT ACC# Date Time Exam [id number] Feb 12, 2013 05:16:00 [id number] Chest 1 view Frontal EXAMINATION: One View Portable Chest IMPRESSION: A right internal jugular central catheter is present, tip overlies the superior vena cava. There is no pneumothorax. the heart is upper limits of normal in size there is a tortuous aorta. There is minimal left basilar infiltrate or atelectasis. No definite effusions however left costophrenic angle is not entirely imaged. . Requested By: JOE CRUZ M.D. Dictated By: CHELO GÓMEZ M.D. on Feb 12 2013 9:14A This document has been electronically signed by: CHELO GÓMEZ M.D. on Feb 12 2013 9:14A us Historical Provider [facility] XR PROCEDURES Final R esult * All Microbiology Report Section (02/12/2013 12:00 AM CDT) 02/12/2013 Narrative HISTORICAL RESULTS - 2013 6:23 AM CDT ? [facility] ?[address] [facility] [address] ?[place], [place] [address] ? Patient Name: ??GIOVANA LEBRON ? Med Rec Number: [id number] ? Fin Number: ?[id number] ? Date: ?1980 ? Sex/Age: ? Male 33 years ? Admit Date: ?02/10/2013 ? Discharge Date: ? Doctor: ?MEDICINE , 1302 ? Facility: ?[facility] ? Location: ?[id number] ?* Abnormal ??A Alert ??f Footnote ??^ Corrected ??L Low ??H High ?i Interp Data ??@ Ref Lab ? Chart Type:Cumulative ?* * * * MICROBIOLOGY - MISCELLANEOUS * * * * ?PROCEDURE: MRSA Surveillance Culture ? SOURCE: Nasal ? COLLECTED: 07/30/13 ??1141 ?BODY SITE: ? STARTED: 07/30/13 ??1215 ? FREE TEXT SOURCE: ? FINAL REPORT ? REPORTED: 07/31/13 1326 ? Negative ?* * * ??Interpretive Results ??* * * ? (1)This test is for Infection Prevention surveillance; no charge to ? the patient. ? Historical Provider LAB MICROBIOLOGY - GENERA L ORDERABLES Final Result Performing Organization Address [facility] de Phone Number HISTORICAL RESULTS * (ABNORMAL) Serum creatine kinase (CK) (02/11/2013 11:44 PM [place]T) [place] [address](C) 30 - 200 Units/L HISTORICAL RESULTS Comment:{Previous critical v alue noted 6 hours ago.} Serum 02/11/2013 11:4 4 PM CDT Phyllis Vasquez MD LAB BLOOD ORDERABLES F inal Result Performing Organization Address [facility] de Phone Number HISTORICAL RESULTS * (ABNORMAL) Plasma basic metabolic panel (02/11/2013 11:44 PM CDT) Sodium 133(L) 135 - 145 mmol/L HISTORICAL RESULTS K, pl 4.6 3.3 - 4.9 mmol/L HISTORICAL RESULTS Chloride 105 97 - 110 mmol/L HISTORICAL RESULTS CO2 18(L) 22 - 32 mmol/L HISTORICAL RESULTS A. gap 10 0 - 16 mmol/L HISTORICAL RESULTS Glucose 103 65 - 199 mg/dl HISTORICAL RESULTS BUN 48(H) 8 - 25 mg/dl HISTORICAL RESULTS Creatinine 6.75(H) 0.70 - 1.30 mg/dl HISTORICAL RESULTS Calcium 7.3(L) 8.6 - 10.3 mg/dl HISTORICAL RESULTS Plasma 02/11/2013 11:4 4 PM CDT Joe Cruz MD LAB BLOOD ORDERABLES Final Result Performing Organization Address [facility] de Phone Number HISTORICAL RESULTS * Plasma phosphorus (02/11/2013 11:44 PM CDT) Phosphorus, pl 2.9 2.3 - 4.3 mg/dl HISTORICAL RESULTS Plasma 02/11/2013 11:4 4 PM CDT Joe Cruz MD LAB BLOOD ORDERABLES Final Result HISTORICAL RESULTS * Serum magnesium (02/11/2013 11:44 PM CDT) Magnesium 1.9 1.4 - 2.5 mg/dl HISTORICAL RESULTS Serum 02/11/2013 11:4 4 PM CDT Joe Cruz MD LAB BLOOD ORDERABLES Final Result Performing Organization Address [facility] de Phone Number HISTORICAL RESULTS * (ABNORMAL) Blood cell count (CBC) (02/11/2013 11:44 PM CDT) WBC 10.2(H) 3.8 - 9.8 K/cumm HISTORICAL RESULTS RBC 3.83(L) 4.50 - 5.70 M/cumm HISTORICAL RESULTS Hgb 10.9(L) 13.8 - 17.2 g/dl HISTORICAL RESULTS Hct 32.0(L) 40.7 - 50.3 % HISTORICAL RESULTS MCV 83.5 80.0 - 97.6 fl HISTORICAL RESULTS MCH 28.4 26.7 - 33.7 pg HISTORICAL RESULTS MCHC 34.0 32.7 - 35.5 g/dl HISTORICAL RESULTS Rdw 13.4 11.8 - 14.6 % HISTORICAL RESULTS Platelets 93(L) 140 - 440 K/cumm HISTORICAL RESULTS MPV 7.8 6.8 - 10.4 fl HISTORICAL RESULTS Neutrophils 81.0(H) 38.7 - 74.5 % HISTORICAL RESULTS Lymphocytes 9.4(L) 20.0 - 54.3 % HISTORICAL RESULTS Monos 6.9 4.3 - 13.5 % HISTORICAL RESULTS Eosinophils 2.7 0.0 - 6.0 % HISTORICAL RESULTS Basophils 0.0 0.0 - 3.0 % HISTORICAL RESULTS Neutrophils, abs 8.2(H) 1.8 - 6.6 K/cumm HISTORICAL RESULTS Lymphocytes, abs 1.0(L) 1.2 - 3.3 K/cumm HISTORICAL RESULTS Monocytes, absolute 0.7 0.2 - 1.2 K/cumm HISTORICAL RESULTS Eosinophils, abs 0.3 0.0 - 0.5 K/cumm HISTORICAL RESULTS Basophils, abs 0.0 0.0 - 0.2 K/cumm HISTORICAL RESULTS Blood specimen (specimen) 02/11/2013 11:44 PM CDT Joe Cruz MD LAB BLOOD ORDERABLES Final Result Performing Organization Address [facility] de Phone Number HISTORICAL RESULTS * (ABNORMAL) Serum creatine kinase (CK) MB (02/11/2013 5:09 PM CDT) CK MB 88(C) 0 - 7 ng/ml HISTORICAL RESULTS Comment:{Previous critical v alue [place] 4 hours [place].} [place] [address](C) 30 - 200 Units/L HISTORICAL RESULTS Comment:{Repeated on dilutio n. Previous critical value noted 4 hours ago.} Serum 02/11/2013 5:09 PM CDT Carli Lunsford MD LAB BLOOD ORDERABLES Final Result Performing Organization Address [facility] de Phone Number HISTORICAL RESULTS * (ABNORMAL) Plasma basic metabolic panel (02/11/2013 5:09 PM CDT) Sodium 135 135 - 145 mmol/L HISTORICAL RESULTS K, pl 5.0(H) 3.3 - 4.9 mmol/L HISTORICAL RESULTS Chloride 106 97 - 110 mmol/L HISTORICAL RESULTS CO2 19(L) 22 - 32 mmol/L HISTORICAL RESULTS A. gap 10 0 - 16 mmol/L HISTORICAL RESULTS Glucose 115 65 - 199 mg/dl HISTORICAL RESULTS BUN 47(H) 8 - 25 mg/dl HISTORICAL RESULTS Creatinine 6.48(H) 0.70 - 1.30 mg/dl HISTORICAL RESULTS Calcium 7.2(L) 8.6 - 10.3 mg/dl HISTORICAL RESULTS Plasma 02/11/2013 5:09 PM CDT Carli Lunsford MD LAB BLOOD ORDERABLES Final Result Performing Organization Address [facility] de Phone Number HISTORICAL RESULTS * (ABNORMAL) Serum lactate dehydrogenase (LDH) (02/11/2013 12:18 PM CDT) Lactate dehydrogenase (LDH) 1238(H) 100 - 250 Units/L HISTORICAL RESULTS Serum 02/11/2013 12:1 8 PM CDT Ap Castillo MD LAB BLOOD ORDERABLES Final Result Performing Organization Address [facility] de Phone Number HISTORICAL RESULTS * (ABNORMAL) Serum creatine kinase (CK) MB (02/11/2013 12:18 PM CDT) Pathologist [facility] CK MB 106(C) 0 - 7 ng/ml HISTORICAL RESULTS Comment:{Previous critical v alue noted 3 hours ago.} [place] [address](C) 30 - 200 Units/L HISTORICAL RESULTS Comment:{Previous critical v alue noted 3 hours ago.} Serum 02/11/2013 12:1 8 PM CDT Ap Castillo MD LAB BLOOD ORDERABLES Final Result Performing Organization Address [facility] de Phone Number HISTORICAL RESULTS * (ABNORMAL) Plasma basic metabolic panel (02/11/2013 12:18 PM CDT) Pathologist [facility] Sodium 135 135 - 145 mmol/L HISTORICAL RESULTS K, pl 5.1(H) 3.3 - 4.9 mmol/L HISTORICAL RESULTS Chloride 105 97 - 110 mmol/L HISTORICAL RESULTS CO2 18(L) 22 - 32 mmol/L HISTORICAL RESULTS A. gap 12 0 - 16 mmol/L HISTORICAL RESULTS Glucose 81 65 - 199 mg/dl HISTORICAL RESULTS BUN 47(H) 8 - 25 mg/dl HISTORICAL RESULTS Creatinine 6.29(H) 0.70 - 1.30 mg/dl HISTORICAL RESULTS Calcium 7.1(L) 8.6 - 10.3 mg/dl HISTORICAL RESULTS Plasma 02/11/2013 12:1 8 PM CDT Ap Castillo MD LAB BLOOD ORDERABLES Final Result Performing Organization Address [facility] de Phone Number HISTORICAL RESULTS * (ABNORMAL) Plasma amylase (02/11/2013 12:18 PM CDT) Queta, pl 334(H) 28 - 100 Units/L HISTORICAL RESULTS Plasma 02/11/2013 12:1 8 PM CDT Ap Castillo MD LAB BLOOD ORDERABLES Final Result HISTORICAL RESULTS * Serum bilirubin, direct (02/11/2013 8:26 AM CDT) Bilirubin, direct 0.2 0.0 - 0.3 mg/dl HISTORICAL RESULTS Serum 02/11/2013 8:26 AM CDT Ap Castillo MD LAB BLOOD ORDERABLES Final Result Performing Organization Address [facility] de Phone Number HISTORICAL RESULTS * (ABNORMAL) Plasma comprehensive metabolic panel (02/11/2013 8:26 AM CDT) Sodium 133(L) 135 - 145 mmol/L HISTORICAL RESULTS K, pl 4.9 3.3 - 4.9 mmol/L HISTORICAL RESULTS Chloride 104 97 - 110 mmol/L HISTORICAL RESULTS CO2 18(L) 22 - 32 mmol/L HISTORICAL RESULTS A. gap 11 0 - 16 mmol/L HISTORICAL RESULTS Glucose 83 65 - 199 mg/dl HISTORICAL RESULTS BUN 45(H) 8 - 25 mg/dl HISTORICAL RESULTS Creatinine 5.94(H) 0.70 - 1.30 mg/dl HISTORICAL RESULTS Calcium 7.2(L) 8.6 - 10.3 mg/dl HISTORICAL RESULTS Protein, pl 4.9(L) 6.5 - 8.5 g/dl HISTORICAL RESULTS Alb 2.7(L) 3.6 - 5.0 g/dl HISTORICAL RESULTS Bilirubin 0.6 0.3 - 1.1 mg/dl HISTORICAL RESULTS Alk phos 56 38 - 126 Units/L HISTORICAL RESULTS AST 1094(H) 11 - 47 Units/L HISTORICAL RESULTS ALT 1288(H) 7 - 53 Units/L HISTORICAL RESULTS Plasma 02/11/2013 8:26 AM CDT Ap Castillo MD LAB BLOOD ORDERABLES Final Result Performing Organization Address [facility] de Phone Number HISTORICAL RESULTS * (ABNORMAL) Serum lactate dehydrogenase (LDH) (02/11/2013 8:26 AM CDT) Lactate dehydrogenase (LDH) 1396(H) 100 - 250 Units/L HISTORICAL RESULTS Serum 02/11/2013 8:26 AM CDT Joe Cruz MD LAB BLOOD ORDERABLES Final Result Performing Organization Address [facility] de Phone Number HISTORICAL RESULTS * Serum troponin I (02/11/2013 8:26 AM CDT) Troponin I 0.19 0.00 - 0.24 ng/ml HISTORICAL RESULTS Comment: Interpretive Data Normal Range: <0.07 ng/mL: Negative 0.07 - 0.24 ng/mL: Elevated, may be consistent with Myocardial Injury/Ischemia but is nondiagnostic and of equivocal significance. Consider obtaining additional Troponin values. (JAM Vidal Cardiol 2000; 36:959. Circulation 2000; 102: 1193., 2002; 106: 1893., 2003: 108: 2543) Greater than or equal to 0.25 ng/mL: Positive Troponin, suggest establishing rising or falling pattern and evidence of Cardiac Ischemia for consideration of Myocardial Infarction. Current interpretive data was last revised on 2007. Serum 02/11/2013 8:26 AM CDT Joe Cruz MD LAB BLOOD ORDERABLES Final Result Performing Organization Address [facility] de Phone Number HISTORICAL RESULTS * (ABNORMAL) Plasma amylase (02/11/2013 8:26 AM CDT) Queta, pl 413(H) 28 - 100 Units/L HISTORICAL RESULTS Plasma 02/11/2013 8:26 AM CDT Joe Cruz MD LAB BLOOD ORDERABLES Final Result HISTORICAL RESULTS * (ABNORMAL) Serum creatine kinase (CK) MB (02/11/2013 8:26 AM CDT) CK MB 137(C) 0 - 7 ng/ml HISTORICAL RESULTS Comment:{Previous critical v alue noted 4 hours [place] [address](C) 30 - 200 Units/L HISTORICAL RESULTS Comment:{Previous critical v alue noted 4 hours ago.} Serum 02/11/2013 8:26 AM CDT Joe Cruz MD LAB BLOOD ORDERABLES Final Result Performing Organization Address [place]/[facility] Co de Phone Number HISTORICAL RESULTS * (ABNORMAL) Plasma prothrombin time (PT) (02/11/2013 8:26 AM CDT) Prothrombin time (PT) 13.2(H) 9.0 - 12.0 seconds HISTORICAL RESULTS INR 1.25(H) 0.90 - 1.20 HISTORIC AL RESULTS Comment: Interpretive Data Inpatient therapeutic ranges* Atrial fibrillation ?2.0-3.0 INR Venous thrombo-embolism ?2.0-3.0 INR Bioprosthetic heart valve ?* Mechanical heart valve, bileaflet or tilting disk,aortic position ? 2.0-3.0 INR All other,or bileaflet or tilting disk, in mitral position ? 2.5-3.5 INR *See the pharmacy resource directory (PHRED) for an updated copy of the Tool Book at [email or web address] Current Interpretive Data was last revised 2011. Plasma 02/11/2013 8:26 AM CDT Joe Cruz MD LAB BLOOD ORDERABLES Final Result HISTORICAL RESULTS * XR Chest 1 View (02/11/2013 4:31 AM CDT) Anatomical Region Laterality Modality Body, Chest N/A Radiographic Ree ging 02/11/2013 4:31 AM CDT Narrative 02/11/2013 10:42 AM CDT KAISER HUNTER M.D. FINAL REPORT ACC# ??Date Time ??Exam [id number] Feb 11, 2013 04:31:00 [id number] Chest 1 view Frontal EXAMINATION: ?CHEST, ONE VIEW, FRONTAL IMPRESSION: ?? Comparison 02/10/2013 1523 hours. Right internal jugular central venous line remains in place as before. The lungs are clear. No pneumothorax or pleural effusion seen. Cardiomediastinal silhouette is stable. Requested By: JOE CRUZ M.D. Dictated By: ?? KAISER HUNTER M.D. ??on Feb 11 2013 10:42A This document has been electronically signed by: KAISER HUNTER M.D. on Feb 11 2013 10:42A Procedure Note Provider, MD Naheed - 11/13/2016 KAISER HUNTER M.D. FINAL REPORT ACC# Date Time Exam [id number] Feb 11, 2013 04:31:00 [id number] Chest 1 view Frontal EXAMINATION: CHEST, ONE VIEW, FRONTAL IMPRESSION: Comparison 02/10/2013 1523 hours. Right internal jugular central venous line remains in place as before. The lungs are clear. No pneumothorax or pleural effusion seen. Cardiomediastinal silhouette is stable. Requested By: JOE CRUZ M.D. Dictated By: KAISER HUNTER M.D. on Feb 11 2013 10:42A This document has been electronically signed by: KAISER HUNTER M.D. on Feb 11 2013 10:42A Historical Provider IMG XR PROCEDURES Final R esult * (ABNORMAL) Serum lactate dehydrogenase (LDH) (02/11/2013 4:11 AM CDT) Lactate dehydrogenase (LDH) 1491(H) 100 - 250 Units/L HISTORICAL RESULTS Serum 02/11/2013 4:11 AM CDT Ap Castillo MD LAB BLOOD ORDERABLES Final Result Performing Organization Address [facility] de Phone Number HISTORICAL RESULTS * (ABNORMAL) Serum uric acid (02/11/2013 4:11 AM CDT) Pathologist [facility] Uric acid 9.6(H) 3.0 - 8.0 mg/dl HISTORICAL RESULTS Serum 02/11/2013 4:11 AM CDT Ap Castillo MD LAB BLOOD ORDERABLES Final Result Performing Organization Address [facility] de Phone Number HISTORICAL RESULTS * (ABNORMAL) Serum creatine kinase (CK) MB (02/11/2013 4:11 AM CDT) Pathologist [facility] CK MB 159(C) 0 - 7 ng/ml HISTORICAL RESULTS Comment:{Previous critical v alue noted 3 hours ago.} [place] [address](C) 30 - 200 Units/L HISTORICAL RESULTS Comment:{Previous critical v alue noted 3 hours ago.} Serum 02/11/2013 4:11 AM CDT Ap Castillo MD LAB BLOOD ORDERABLES Final Result Performing Organization Address [facility] de Phone Number HISTORICAL RESULTS * (ABNORMAL) Plasma basic metabolic panel (02/11/2013 4:11 AM CDT) Sodium 132(L) 135 - 145 mmol/L HISTORICAL RESULTS K, pl 4.6 3.3 - 4.9 mmol/L HISTORICAL RESULTS Chloride 102 97 - 110 mmol/L HISTORICAL RESULTS CO2 20(L) 22 - 32 mmol/L HISTORICAL RESULTS A. gap 10 0 - 16 mmol/L HISTORICAL RESULTS Glucose 84 65 - 199 mg/dl HISTORICAL RESULTS BUN 43(H) 8 - 25 mg/dl HISTORICAL RESULTS Creatinine 5.74(H) 0.70 - 1.30 mg/dl HISTORICAL RESULTS Calcium 7.0(L) 8.6 - 10.3 mg/dl HISTORICAL RESULTS Plasma 02/11/2013 4:11 AM CDT Ap Castillo MD LAB BLOOD ORDERABLES Final Result Performing Organization Address [facility] de Phone Number HISTORICAL RESULTS * (ABNORMAL) Plasma amylase (02/11/2013 4:11 AM CDT) [place], pl 490(H) 28 - 100 Units/L HISTORICAL RESULTS Plasma 02/11/2013 4:11 AM CDT Ap Castillo MD LAB BLOOD ORDERABLES Final Result Performing Organization Address [facility] de Phone Number HISTORICAL RESULTS * Serum Hepatitis panel (02/11/2013 4:11 AM CDT) HBV surface ag Negative NEG HISTO RICAL RESULTS HCV ab Negative NEG HISTORICAL RESULTS Comment: Interpretive Data If confirmation is required, call Laboratory Customer Service to request sample to be sent to [facility] for Hepatitis C Virus (HCV) RNA Detection and Quantitation by Real-Time Reverse Ship Rigger Apprentice-PCR (RT-PCR). Current interpretive data was last revised [...] on 2008. Serum 02/11/2013 4:11 AM CDT us Ap Castillo MD LAB BLOOD ORDERABLES Final Result Performing Organization Address [facility] de Phone Number HISTORICAL RESULTS * (ABNORMAL) Plasma comprehensive metabolic panel (02/11/2013 4:11 AM CDT) Sodium 132(L) 135 - 145 mmol/L HISTORICAL RESULTS K, pl 4.6 3.3 - 4.9 mmol/L HISTORICAL RESULTS Chloride 103 97 - 110 mmol/L HISTORICAL RESULTS CO2 19(L) 22 - 32 mmol/L HISTORICAL RESULTS A. gap 10 0 - 16 mmol/L HISTORICAL RESULTS Glucose 86 65 - 199 mg/dl HISTORICAL RESULTS BUN 45(H) 8 - 25 mg/dl HISTORICAL RESULTS Creatinine 5.81(H) 0.70 - 1.30 mg/dl HISTORICAL RESULTS Calcium 7.1(L) 8.6 - 10.3 mg/dl HISTORICAL RESULTS Protein, pl 4.9(L) 6.5 - 8.5 g/dl HISTORICAL RESULTS Alb 2.7(L) 3.6 - 5.0 g/dl HISTORICAL RESULTS Bilirubin 0.6 0.3 - 1.1 mg/dl HISTORICAL RESULTS Alk phos 57 38 - 126 Units/L HISTORICAL RESULTS AST 1153(H) 11 - 47 Units/L HISTORICAL RESULTS ALT 1270(H) 7 - 53 Units/L HISTORICAL RESULTS Plasma 02/11/2013 4:11 AM CDT Ap Castillo MD LAB BLOOD ORDERABLES Final Result Performing Organization Address [facility] de Phone Number HISTORICAL RESULTS * Urine (aerobic) culture (02/11/2013 1:00 AM CDT) Urine, catheterized (Field) 02/11/2013 1:00 AM CDT 02/11/2013 2:44 AM CDT Narrative HISTORICAL RESULTS - 02/12/2013 9:13 AM CDT No growth Historical Provider LAB MICROBIOLOGY - GENERA L ORDERABLES Final Result Performing Organization Address City/State/[facility] Co de Phone Number HISTORICAL RESULTS * Plasma partial thromboplastin time (PTT) (02/11/2013 12:58 AM CDT) APTT 25.1 25.0 - 37.0 seconds HISTORICAL RESULTS Comment: Interpretive Data Therapeutic heparin range:60.0 - 94.0 sec based on correlation with therapeutic heparin activity range of 0.3 -0.7 Units/mL. Current interpretive data was last revised on 2011. Plasma 02/11/2013 12:5 8 AM CDT Joe Cruz MD LAB BLOOD ORDERABLES Final Result Performing Organization Address [facility] de Phone Number HISTORICAL RESULTS * (ABNORMAL) Plasma prothrombin time (PT) (02/11/2013 12:58 AM CDT) Prothrombin time (PT) 13.5(H) 9.0 - 12.0 seconds HISTORICAL RESULTS INR 1.27(H) 0.90 - 1.20 HISTORIC AL RESULTS Comment: Interpretive Data Inpatient therapeutic ranges* Atrial fibrillation ?2.0-3.0 INR Venous thrombo-embolism ?2.0-3.0 INR Bioprosthetic heart valve ?* Mechanical heart valve, bileaflet or tilting disk,aortic position ? 2.0-3.0 INR All other,or bileaflet or tilting disk, in mitral position ? 2.5-3.5 INR *See the pharmacy resource directory (PHRED) for an updated copy of the Tool Book at [email or web address] Current Interpretive Data was last revised 2011. Plasma 02/11/2013 12:5 8 AM CDT Jeo Cruz MD LAB BLOOD ORDERABLES Final Result Performing Organization Address [facility] de Phone Number HISTORICAL RESULTS * (ABNORMAL) Serum troponin I (02/11/2013 12:56 AM CDT) Troponin I 0.26(C) 0.00 - 0.24 ng/ml HISTORICAL RESULTS Comment: {Previous critical value noted 9 hours ago.} Interpretive Data Normal Range: <0.07 ng/mL: Negative 0.07 - 0.24 ng/mL: Elevated, may be consistent with Myocardial Injury/Ischemia but is nondiagnostic and of equivocal significance. Consider obtaining additional Troponin values. (JAM Vidal Cardiol 2000; 36:959. Circulation 2000; 102: 1193., 2002; 106: 1893., 2003: 108: 7273) Greater than or equal to 0.25 ng/mL: Positive Troponin, suggest establishing rising or falling pattern and evidence of Cardiac Ischemia for consideration of Myocardial Infarction. Current interpretive data was last revised on 2007. Serum 02/11/2013 12:5 6 AM CDT Joe Cruz MD LAB BLOOD ORDERABLES Final Result Performing Organization Address City/[facility] Co de Phone Number HISTORICAL RESULTS * (ABNORMAL) Plasma hepatic function panel (02/11/2013 12:56 AM CDT) Protein, pl 4.9(L) 6.5 - 8.5 g/dl HISTORICAL RESULTS Alb 2.8(L) 3.6 - 5.0 g/dl HISTORICAL RESULTS Bilirubin 0.7 0.3 - 1.1 mg/dl HISTORICAL RESULTS Bilirubin, direct 0.2 0.0 - 0.3 mg/dl HISTORICAL RESULTS Alk phos 57 38 - 126 Units/L HISTORICAL RESULTS AST 1256(H) 11 - 47 Units/L HISTORICAL RESULTS ALT 1359(H) 7 - 53 Units/L HISTORICAL RESULTS Plasma 02/11/2013 12:5 6 AM CDT Joe Cruz MD LAB BLOOD ORDERABLES Final Result HISTORICAL RESULTS * (ABNORMAL) Plasma basic metabolic panel (02/11/2013 12:56 AM CDT) Sodium 132(L) 135 - 145 mmol/L HISTORICAL RESULTS K, pl 4.6 3.3 - 4.9 mmol/L HISTORICAL RESULTS Chloride 101 97 - 110 mmol/L HISTORICAL RESULTS CO2 21(L) 22 - 32 mmol/L HISTORICAL RESULTS A. gap 10 0 - 16 mmol/L HISTORICAL RESULTS Glucose 88 65 - 199 mg/dl HISTORICAL RESULTS BUN 44(H) 8 - 25 mg/dl HISTORICAL RESULTS Creatinine 5.30(H) 0.70 - 1.30 mg/dl HISTORICAL RESULTS Calcium 7.2(L) 8.6 - 10.3 mg/dl HISTORICAL RESULTS Plasma 02/11/2013 12:5 6 AM CDT Joe Cruz MD LAB BLOOD ORDERABLES Final Result Performing Organization Address [facility] de Phone Number HISTORICAL RESULTS * (ABNORMAL) Serum lactate dehydrogenase (LDH) (02/11/2013 12:56 AM CDT) Lactate dehydrogenase (LDH) 1555(H) 100 - 250 Units/L HISTORICAL RESULTS Serum 02/11/2013 12:5 6 AM CDT Joe Cruz MD LAB BLOOD ORDERABLES Final Result Performing Organization Address [facility] de Phone Number HISTORICAL RESULTS * Plasma lactic acid (02/11/2013 12:56 AM CDT) Lactic acid 0.8 0.7 - 2.1 mmol/L HISTORICAL RESULTS Plasma 02/11/2013 12:5 6 AM CDT Joe Cruz MD LAB BLOOD ORDERABLES Final Result Performing Organization Address [facility] de Phone Number HISTORICAL RESULTS * Plasma phosphorus (02/11/2013 12:56 AM CDT) Phosphorus, pl 3.2 2.3 - 4.3 mg/dl HISTORICAL RESULTS Plasma 02/11/2013 12:5 6 AM CDT Joe Cruz MD LAB BLOOD ORDERABLES Final Result Performing Organization Address [facility] de Phone Number HISTORICAL RESULTS * Serum magnesium (02/11/2013 12:56 AM CDT) Magnesium 1.8 1.4 - 2.5 mg/dl HISTORICAL RESULTS Serum 02/11/2013 12:5 6 AM CDT Joe Cruz MD LAB BLOOD ORDERABLES Final Result Performing Organization Address [facility] Phone Number HISTORICAL RESULTS * (ABNORMAL) Plasma amylase (02/11/2013 12:56 AM CDT) Queta, pl 578(H) 28 - 100 Units/L HISTORICAL RESULTS Plasma 02/11/2013 12:5 6 AM CDT Joe Cruz MD LAB BLOOD ORDERABLES Final Result Performing Organization Address [facility] Phone Number HISTORICAL RESULTS * (ABNORMAL) Serum calcium, ionized (02/11/2013 12:56 AM CDT) Ca, ionized, sr 4.15(L) 4.50 - 5.10 mg/dl HISTORICAL RESULTS Serum 02/11/2013 12:5 6 AM CDT Joe Cruz MD LAB BLOOD ORDERABLES Final Result Performing Organization Address [facility] de Phone Number HISTORICAL RESULTS * (ABNORMAL) Blood cell count (CBC) (02/11/2013 12:56 AM CDT) WBC 12.6(H) 3.8 - 9.8 K/cumm HISTORICAL RESULTS RBC 4.19(L) 4.50 - 5.70 M/cumm HISTORICAL RESULTS Hgb 12.1(L) 13.8 - 17.2 g/dl HISTORICAL RESULTS Hct 35.1(L) 40.7 - 50.3 % HISTORICAL RESULTS MCV 83.8 80.0 - 97.6 fl HISTORICAL RESULTS MCH 28.9 26.7 - 33.7 pg HISTORICAL RESULTS MCHC 34.5 32.7 - 35.5 g/dl HISTORICAL RESULTS Rdw 13.6 11.8 - 14.6 % HISTORICAL RESULTS Platelets 86(L) 140 - 440 K/cumm HISTORICAL RESULTS MPV 8.1 6.8 - 10.4 fl HISTORICAL RESULTS Neutrophils 84.2(H) 38.7 - 74.5 % HISTORICAL RESULTS Lymphocytes 7.5(L) 20.0 - 54.3 % HISTORICAL RESULTS Monos 5.5 4.3 - 13.5 % HISTORICAL RESULTS Eosinophils 2.5 0.0 - 6.0 % HISTORICAL RESULTS Basophils 0.3 0.0 - 3.0 % HISTORICAL RESULTS Neutrophils, abs 10.6(H) 1.8 - 6.6 K/cumm HISTORICAL RESULTS Lymphocytes, abs 0.9(L) 1.2 - 3.3 K/cumm HISTORICAL RESULTS Monocytes, absolute 0.7 0.2 - 1.2 K/cumm HISTORICAL RESULTS Eosinophils, abs 0.3 0.0 - 0.5 K/cumm HISTORICAL RESULTS Basophils, abs 0.0 0.0 - 0.2 K/cumm HISTORICAL RESULTS Blood specimen (specimen) 02/11/2013 12:56 AM CDT Joe Cruz MD LAB BLOOD ORDERABLES Final Result Performing Organization Address City/State/[facility] Co de Phone Number HISTORICAL RESULTS * (ABNORMAL) Serum uric acid (02/11/2013 12:56 AM CDT) Uric acid 9.4(H) 3.0 - 8.0 mg/dl HISTORICAL RESULTS Serum 02/11/2013 12:5 6 AM CDT Joe Cruz MD LAB BLOOD ORDERABLES Final Result HISTORICAL RESULTS * (ABNORMAL) Serum creatine kinase (CK) MB (02/11/2013 12:56 AM CDT) CK MB 174(C) 0 - 7 ng/ml HISTORICAL RESULTS Comment:{Previous critical v alue [place] 9 [place].} [place] [address](C) 30 - 200 Units/L HISTORICAL RESULTS Comment:{Previous critical v alue noted 3 hours ago.} Serum 02/11/2013 12:5 6 AM CDT us Joe Cruz MD LAB BLOOD ORDERABLES Final Result HISTORICAL RESULTS * All Microbiology Report Section (02/11/2013 12:00 AM CDT) 02/11/2013 Narrative HISTORICAL RESULTS - 2013 6:23 AM CDT ? [facility] ?[address] [facility] [address] ?[place], [place] [address] ? Patient Name: ??GIOVANA LEBRON ? Med Rec Number: [id number] ? Fin Number: ?[id number] ? Date: ?1980 ? Sex/Age: ? Male 33 years ? Admit Date: ?02/10/2013 ? Discharge Date: ? Doctor: ?[facility] , 1302 ? Facility: ?[facility] ? Location: ?[id number] ?* Abnormal ??A Alert ??f Footnote ??^ Corrected ??L Low ??H High ?i Interp Data ??@ Ref Lab ? Chart Type:Cumulative ?* * * * MICROBIOLOGY - URINE * * * * ?PROCEDURE: Urine Culture ? SOURCE: Urine, catheterized ? COLLECTED: 02/11/13 ??0100 ?BODY SITE: Field ? STARTED: 02/11/13 ??0244 ? FREE TEXT SOURCE: ? FINAL REPORT ? REPORTED: 02/12/13912 ? No growth us Historical Provider LAB MICROBIOLOGY - GENERA L ORDERABLES Final Result HISTORICAL RESULTS * ELECTROCARDIOGRAPHY (ECG) (02/11/2013) Narrative 02/11/2013 Ordered by an unspecified provider. us Historical Provider ECG ORDERABLES Final Res ult * ABDOMINAL RADIOGRAPHY, FRONTAL (AP) (02/10/2013 9:31 PM CDT) Anatomical Region Laterality Modality N/A Radiographic Ree ging 02/10/2013 9:31 PM CDT Narrative 02/11/2013 3:33 PM CDT DUNIA SELF M.D. MANJIT ALANIS M.D. FINAL REPORT The radiology attending physician has personally reviewed this study, and has reviewed and/or edited this written report and agrees with it. 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 INDICATION: Evaluate for small bowel obstruction or ileus. COMPARISON: None. FINDINGS: Frontal view of the abdomen, submitted on 2 images. Normal bowel gas pattern is seen. No evidence of obstruction or ileus. Scattered pelvic phleboliths. Bones are grossly unremarkable. Lung bases are clear. IMPRESSION: ?Normal bowel gas pattern. No evidence of obstruction or ileus. ?? Requested By: AP CASTILLO M.D. Dictated By: ?? MANJIT ALANIS M.D. ??on Feb 11 2013 ??1:45P This document has been electronically signed by: DUNIA SELF M.D. on Feb 11 2013 ??3:33P Procedure Note Provider, MD Naheed - 11/13/2016 Tasha THOMSON M.D. FINAL REPORT The radiology attending physician has personally reviewed this study, and has reviewed and/or edited this written report and agrees with it. 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 INDICATION: Evaluate for small bowel obstruction or ileus. COMPARISON: None. FINDINGS: Frontal view of the abdomen, submitted on 2 images. Normal bowel gas pattern is seen. No evidence of obstruction or ileus. Scattered pelvic phleboliths. Bones are grossly unremarkable. Lung bases are clear. IMPRESSION: Normal bowel gas pattern. No evidence of obstruction or ileus. Requested By: AP CASTILLO M.D. Dictated By: MANJIT ALANIS M.D. on Feb 11 2013 1:45P This document has been electronically signed by: DUNIA SELF M.D. on Feb 11 2013 3:33P Result [facility] Historical Provider IMG XR PROCEDURES Final R esult * Blood culture (02/10/2013 9:00 PM CDT) Blood specimen (specimen) (Peripheral) 02/10/2013 9:00 PM CDT 02/10/2013 9:37 PM CDT Narrative HISTORICAL RESULTS - 02/16/2013 6:23 AM CDT No growth Result [facility] Historical Provider LAB MICROBIOLOGY - GENERA L ORDERABLES Final Result Performing Organization Address [facility] Co de Phone Number HISTORICAL RESULTS * Serum Hepatitis C viral RNA, PCR, quantitative (02/10/2013 9:00 PM CDT) Pathologist [facility] HCV PCR, quant Undetected Undetected IUnits/ml HISTORICAL RESULTS Comment: Result in log IU/mL is Undetected. The quantification range of this assay is 43 IU/mL to 69,000,000 IU/mL (1.63 log IU/mL to 7.84 log IU/mL). Testing was performed by the [employer]O AmpliPrep/EDUARDO TaqMan HCV Test ([employer] Test Performed by: [place] [address] Coal Handler: Noel Unger III, M.D. Serum 02/10/2013 9:00 PM CDT Result [facility] Ap Castillo MD LAB BLOOD ORDERABLES Final Result Performing Organization Address City/[facility]/ZIP Co de Phone Number HISTORICAL RESULTS * Serum Human Immunodeficiency virus (HIV) 1, 2 ab (02/10/2013 9:00 PM CDT) [facility] HIV ab Negative NEG HISTORICAL RESULTS Serum 02/10/2013 9:00 PM CDT Result [facility] Ap Castillo MD LAB BLOOD ORDERABLES Final Result Performing Organization Address [facility] Co de Phone Number HISTORICAL RESULTS * (ABNORMAL) Serum creatine kinase (CK) (02/10/2013 9:00 PM CDT) [place] [facility] [place] [address](C) 30 - 200 Units/L HISTORICAL RESULTS Comment:{Previous critical v alue noted 5 hours ago.} Serum 02/10/2013 9:00 PM CDT Joe Cruz MD LAB BLOOD ORDERABLES Final Result Performing Organization Address [facility] de Phone Number HISTORICAL RESULTS * (ABNORMAL) Serum lactate dehydrogenase (LDH) (02/10/2013 9:00 PM CDT) Pathologist [facility] Lactate dehydrogenase (LDH) 1884(H) 100 - 250 Units/L HISTORICAL RESULTS Serum 02/10/2013 9:00 PM CDT Ap Castillo MD LAB BLOOD ORDERABLES Final Result Performing Organization Address [facility] de Phone Number HISTORICAL RESULTS * (ABNORMAL) Plasma hepatic function panel (02/10/2013 9:00 PM CDT) Pathologist [facility] Protein, pl 5.2(L) 6.5 - 8.5 g/dl HISTORICAL RESULTS Alb 3.0(L) 3.6 - 5.0 g/dl HISTORICAL RESULTS Bilirubin 0.7 0.3 - 1.1 mg/dl HISTORICAL RESULTS Bilirubin, direct 0.2 0.0 - 0.3 mg/dl HISTORICAL RESULTS Alk phos 61 38 - 126 Units/L HISTORICAL RESULTS AST 1508(H) 11 - 47 Units/L HISTORICAL RESULTS ALT 1469(H) 7 - 53 Units/L HISTORICAL RESULTS Plasma 02/10/2013 9:00 PM CDT Ap Castillo MD LAB BLOOD ORDERABLES Final Result Performing Organization Address [facility] Co de Phone Number HISTORICAL RESULTS * (ABNORMAL) Serum uric acid (02/10/2013 9:00 PM CDT) Uric acid 9.3(H) 3.0 - 8.0 mg/dl HISTORICAL RESULTS Serum 02/10/2013 9:00 PM CDT Ap Castillo MD LAB BLOOD ORDERABLES Final Result Performing Organization Address [facility] de Phone Number HISTORICAL RESULTS * Blood glucose, POC (02/10/2013 7:23 PM CDT) Glucose, POC, bld 97 65 - 199 mg/dl HISTORICAL RESULTS Blood specimen (specimen) 02/10/2013 7:23 PM CDT Greg Quiles MD LAB BLOOD ORDERABLES Final Resu lt Performing Organization Address [facility] de Phone Number HISTORICAL RESULTS * Blood culture (02/10/2013 4:46 PM CDT) Blood specimen (specimen) (Antecubital, right) 02/10/2013 4:46 PM CDT 02/10/2013 5:38 PM CDT Narrative HISTORICAL RESULTS - 02/16/2013 6:23 AM CDT No growth Historical Provider LAB MICROBIOLOGY - GENERA L ORDERABLES Final Result Performing Organization Address [facility] de Phone Number HISTORICAL RESULTS * XR Wrist 3+ VW (02/10/2013 4:36 PM CDT) Anatomical Region Laterality Modality N/A Radiographic Ree ging 02/10/2013 4:36 PM CDT Narrative 02/11/2013 6:23 AM CDT LESLIE FLORES MD, PHD FINAL REPORT ACC# ??Date Time ??Exam [id number] Feb 10, 2013 16:36:00 [id number] Wrist Complete min 3 views L EXAMINATION: ?Left wrist minimum 3 views HISTORY: ??Trauma FINDINGS: ??Three portable views of the left wrist are submitted without comparison. There is diffuse soft tissue swelling of the visualized distal left forearm and wrist. There is no soft tissue gas. 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 ??There is a small well-corticated ossific fragment anteriorly seen on the lateral radiograph at the level of the radiocarpal joint. No acute fracture noted. IMPRESSION: ?? 1. Diffuse left wrist and distal left forearm soft tissue swelling without underlying osseous abnormality. Requested By: ROGE BAUMANN M.D. Dictated By: ?? LESLIE FLORES MD, PHD ??on Feb 11 2013 ??6:23A This document has been electronically signed by: LESLIE FLORES MD, PHD on Feb 11 2013 ??6:23A Procedure Note Provider, MD Naheed - 11/13/2016 LESLIE FLORSE MD, PHD FINAL REPORT ACC# Date Time Exam [id number] Feb 10, 2013 16:36:00 [id number] Wrist Complete min 3 views L EXAMINATION: Left wrist minimum 3 views HISTORY: Trauma FINDINGS: Three portable views of the left wrist are submitted without comparison. There is diffuse soft tissue swelling of the visualized distal left forearm and wrist. There is no soft tissue gas. 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 There is a small well-corticated ossific fragment anteriorly seen on the lateral radiograph at the level of the radiocarpal joint. No acute fracture noted. IMPRESSION: 1. Diffuse left wrist and distal left forearm soft tissue swelling without underlying osseous abnormality. Requested By: ROGE BAUMANN M.D. Dictated By: LESLIE FLORES MD, PHD on Feb 11 2013 6:23A This document has been electronically signed by: LESLIE FLORES MD, PHD on Feb 11 2013 6:23A Historical Provider IMG XR PROCEDURES Final R esult * Blood check sample (02/10/2013 3:27 PM CDT) ABO, Rho(D) A Positive HISTORI NETTA RESULTS Blood specimen (specimen) 02/10/2013 3:27 PM CDT Greg Quiles MD LAB BLOOD ORDERABLES Final Resu lt HISTORICAL RESULTS * XR Chest 1 View (02/10/2013 3:22 PM CDT) Anatomical Region Laterality Modality Body, Chest N/A Radiographic Ree ging 02/10/2013 3:22 PM CDT Narrative 02/10/2013 4:58 PM CDT KAISER HUNTER M.D. FINAL REPORT ACC# ??Date Time ??Exam [id number] Feb 10, 2013 15:22:00 [id number] Chest 1 view Frontal EXAMINATION: ?CHEST, ONE VIEW, FRONTAL IMPRESSION: ?? No prior chest radiographs available for comparison. Right internal jugular central venous line in place with tip at superior vena cava/right atrial junction. No pneumothorax seen. No focal consolidation or pulmonary edema seen. Cardiomediastinal silhouette is within normal limits given the small lung volumes. Requested By: AP CASTILLO M.D. Dictated By: ?? KAISER HUNTER M.D. ??on Feb 10 2013 ??4:58P This document has been electronically signed by: KAISER HUNTER M.D. on Feb 10 2013 ??4:58P Procedure Note Provider, MD Naheed - 11/13/2016 KAISER HUNTER M.D. FINAL REPORT ACC# Date Time Exam [id number] Feb 10, 2013 15:22:00 [id number] Chest 1 view Frontal EXAMINATION: CHEST, ONE VIEW, FRONTAL IMPRESSION: No prior chest radiographs available for comparison. Right internal jugular central venous line in place with tip at superior vena cava/right atrial junction. No pneumothorax seen. No focal consolidation or pulmonary edema seen. Cardiomediastinal silhouette is within normal limits given the small lung volumes. Requested By: AP CASTILLO M.D. Dictated By: KAISER HUNTER M.D. on Feb 10 2013 4:58P This document has been electronically signed by: KAISER HUNTER M.D. on Feb 10 2013 4:58P us Historical Provider MD IMG XR PROCEDURES Final R esult * (ABNORMAL) Serum creatine kinase (CK) MB (02/10/2013 3:10 PM CDT) CK MB 247(C) 0 - 7 ng/ml HISTORICAL RESULTS Comment: Critical result called to ruthy chiang (r.n.) on 02/10/2013 16:25:50 [place] [address](C) 30 - 200 Units/L HISTORICAL RESULTS Comment: Critical result called to ruthy chiang (r.n.) on 02/10/2013 16:25:10 CDT by sd. Serum 02/10/2013 3:10 PM CDT Ap Castillo MD LAB BLOOD ORDERABLES Final Result HISTORICAL RESULTS * (ABNORMAL) Serum lipid panel (02/10/2013 3:10 PM CDT) Cholesterol 90 0 - 200 mg/dl HISTORICAL RESULTS Comment: Interpretive Data Desirable: ?<200 mg/dL Borderline high: ??200-239 mg/dL High: ? >240 mg/dL Literature Reference: National Cholesterol Education Program (NCEP) Expert Panel on Detection, Evaluation, and Treatment of High Blood Cholesterol in Adults (Adult Treatment Panel III). ??Circulation 2004; 110:227. Current interpretive data was last revised on 2005. Triglycerides 117 0 - 150 mg/dl HISTORICAL RESULTS Comment: Interpretive Data Desirable: ? < 150 mg/dL Borderline High: ? 150 - 199 mg/dL High: ?> 200 mg/dL Literature Reference: See Cholesterol Current interpretive data was last revised on 07. HDL 27(L) 40 - 199 mg/dl HISTORICAL RESULTS Comment: Interpretive Data Less than 40 mg/dL - low; A major risk factor for heart disease. Greater than or equal to 60 mg/dL - High; ??considered protective of heart disease. Literature Reference: See Cholesterol Current interpretive data was last revised on 2008. LDL 40 0 - 129 mg/dl HISTORICAL RESULTS Comment: Interpretive Data Optimal: ? < 100 mg/dL Near Optimal: ?100 - 129 mg/dL Borderline High: ?? 130 - 159 mg/dL High: ?> 160 mg/dL Literature Reference: See Cholesterol Current interpretive data was last revised on 07. Non-HDL cholesterol, calculated 63 mg/dl HISTORICAL RESULTS Comment: Interpretive Data When triglycerides are >200 mg/dL, non-HDL C is a secondary target of therapy, with a goal 30 mg/dL higher than the identified LDL-C goal. Reference: ??See Cholesterol Reference. Current interpretive data was last revised 2012. Serum 02/10/2013 3:10 PM CDT Ap Castillo MD LAB BLOOD ORDERABLES Final Result HISTORICAL RESULTS * (ABNORMAL) Serum troponin I (02/10/2013 3:10 PM CDT) Troponin I 0.60(C) 0.00 - 0.24 ng/ml HISTORICAL RESULTS Comment: Critical result called to ruthy reyna) on 02/10/2013 16:22:27 CDT by sd. Interpretive Data Normal Range: <0.07 ng/mL: Negative 0.07 - 0.24 ng/mL: Elevated, may be consistent with Myocardial Injury/Ischemia but is nondiagnostic and of equivocal significance. Consider obtaining additional Troponin values. (JAM Vidal Cardiol 2000; 36:959. Circulation 2000; 102: 1193., 2002; 106: 1893., 2003: 108: 2543) Greater than or equal to 0.25 ng/mL: Positive Troponin, suggest establishing rising or falling pattern and evidence of Cardiac Ischemia for consideration of Myocardial Infarction. Current interpretive data was last revised on 2007. Serum 02/10/2013 3:10 PM CDT Ap Castillo MD LAB BLOOD ORDERABLES Final Result Performing Organization Address [facility] de Phone Number HISTORICAL RESULTS * (ABNORMAL) Blood gas, arterial (02/10/2013 3:10 PM CDT) Ph, art 7.34(L) 7.35 - 7.45 HISTORICAL RESULTS PCO2 36 35 - 45 mm Hg HISTORICAL RESULTS PO2, art 104 80 - 105 mm Hg HISTORICAL RESULTS CO2, calc, art 20(L) 21 - 30 mmol/L HISTORICAL RESULTS A-a gradient Not Applicable mm Hg HI STORICAL RESULTS O2, inspired, %, art Not Applicable % HISTORICAL RESULTS Oxygen (O2), inspired fraction (FiO2) Not Applicable liters HISTORICAL RESULTS Arterial blood 02/10/2013 3: 10 PM CDT Result [facility] Ap Castillo MD LAB BLOOD ORDERABLES Final Result Performing Organization Address [facility] de Phone Number HISTORICAL RESULTS * Plasma lactic acid (02/10/2013 3:10 PM CDT) Pathologist [facility] Lactic acid 1.6 0.7 - 2.1 mmol/L HISTORICAL RESULTS Plasma 02/10/2013 3:10 PM CDT Result [facility] Ap Castillo MD LAB BLOOD ORDERABLES Final Result Performing Organization Address [facility] de Phone Number HISTORICAL RESULTS * Blood potassium, mixed venous (02/10/2013 3:10 PM CDT) Pathologist [facility] Potassium, bld 4.6 3.3 - 4.9 mmol/L HISTORICAL RESULTS Mixed venous blood 02/10/2013 3:10 PM CDT Result [facility] Ap Castillo MD LAB BLOOD ORDERABLES Final Result Performing Organization Address [facility] de Phone Number HISTORICAL RESULTS * (ABNORMAL) Plasma hepatic function panel (02/10/2013 3:10 PM CDT) Protein, pl 5.3(L) 6.5 - 8.5 g/dl HISTORICAL RESULTS Alb 3.1(L) 3.6 - 5.0 g/dl HISTORICAL RESULTS Bilirubin 0.7 0.3 - 1.1 mg/dl HISTORICAL RESULTS Bilirubin, direct 0.2 0.0 - 0.3 mg/dl HISTORICAL RESULTS Alk phos 63 38 - 126 Units/L HISTORICAL RESULTS AST 1777(H) 11 - 47 Units/L HISTORICAL RESULTS ALT 1636(H) 7 - 53 Units/L HISTORICAL RESULTS Plasma 02/10/2013 3:10 PM CDT Ap Castillo MD LAB BLOOD ORDERABLES Final Result Performing Organization Address [facility] de Phone Number HISTORICAL RESULTS * (ABNORMAL) Plasma partial thromboplastin time (PTT) (02/10/2013 3:10 PM CDT) APTT 24.2(L) 25.0 - 37.0 seconds HISTORICAL RESULTS Comment: Interpretive Data Therapeutic heparin range:60.0 - 94.0 sec based on correlation with therapeutic heparin activity range of 0.3 -0.7 Units/mL. Current interpretive data was last revised on 2011. Plasma 02/10/2013 3:10 PM CDT Ap Castillo MD LAB BLOOD ORDERABLES Final Result Performing Organization Address [facility] de Phone Number HISTORICAL RESULTS * (ABNORMAL) Plasma basic metabolic panel (02/10/2013 3:10 PM CDT) Sodium 132(L) 135 - 145 mmol/L HISTORICAL RESULTS K, pl 4.7 3.3 - 4.9 mmol/L HISTORICAL RESULTS Chloride 100 97 - 110 mmol/L HISTORICAL RESULTS CO2 22 22 - 32 mmol/L HISTORICAL RESULTS A. gap 10 0 - 16 mmol/L HISTORICAL RESULTS Glucose 113 65 - 199 mg/dl HISTORICAL RESULTS BUN 38(H) 8 - 25 mg/dl HISTORICAL RESULTS Creatinine 4.35(H) 0.70 - 1.30 mg/dl HISTORICAL RESULTS Calcium 7.4(L) 8.6 - 10.3 mg/dl HISTORICAL RESULTS Plasma 02/10/2013 3:10 PM CDT Result [facility] Ap Castillo MD LAB BLOOD ORDERABLES Final Result Performing Organization Address [facility] Co de Phone Number HISTORICAL RESULTS * (ABNORMAL) Plasma prothrombin time (PT) (02/10/2013 3:10 PM CDT) Prothrombin time (PT) 13.5(H) 9.0 - 12.0 seconds HISTORICAL RESULTS INR 1.27(H) 0.90 - 1.20 HISTORIC AL RESULTS Comment: Interpretive Data Inpatient therapeutic ranges* Atrial fibrillation ?2.0-3.0 INR Venous thrombo-embolism ?2.0-3.0 INR Bioprosthetic heart valve ?* Mechanical heart valve, bileaflet or tilting disk,aortic position ? 2.0-3.0 INR All other,or bileaflet or tilting disk, in mitral position ? 2.5-3.5 INR *See the pharmacy resource directory (PHRED) for an updated copy of the Tool Book at [email or web address].[email or web address] Current Interpretive Data was last revised 2011. Plasma 02/10/2013 3:10 PM CDT Result [facility] Ap Castillo MD LAB BLOOD ORDERABLES Final Result Performing Organization Address City/[facility]/ZIP Co de Phone Number HISTORICAL RESULTS * (ABNORMAL) Serum calcium, ionized (02/10/2013 3:10 PM CDT) Ca, ionized, sr 4.17(L) 4.50 - 5.10 mg/dl HISTORICAL RESULTS Serum 02/10/2013 3:10 PM CDT Result [facility] Ap Castillo MD LAB BLOOD ORDERABLES Final Result HISTORICAL RESULTS * Serum lipase (02/10/2013 3:10 PM CDT) Lip 29 0 - 99 Units/L HISTORICAL RESULTS Serum 02/10/2013 3:10 PM CDT Ap Castillo MD LAB BLOOD ORDERABLES Final Result HISTORICAL RESULTS * (ABNORMAL) Blood cell count (CBC) (02/10/2013 3:10 PM CDT) WBC 16.2(H) 3.8 - 9.8 K/cumm HISTORICAL RESULTS RBC 4.57 4.50 - 5.70 M/cumm HISTORICAL RESULTS Hgb 12.8(L) 13.8 - 17.2 g/dl HISTORICAL RESULTS Hct 39.3(L) 40.7 - 50.3 % HISTORICAL RESULTS MCV 85.9 80.0 - 97.6 fl HISTORICAL RESULTS MCH 28.1 26.7 - 33.7 pg HISTORICAL RESULTS MCHC 32.7 32.7 - 35.5 g/dl HISTORICAL RESULTS Rdw 13.4 11.8 - 14.6 % HISTORICAL RESULTS Platelets 87(L) 140 - 440 K/cumm HISTORICAL RESULTS MPV 7.9 6.8 - 10.4 fl HISTORICAL RESULTS Neutrophils 86.1(H) 38.7 - 74.5 % HISTORICAL RESULTS Lymphocytes 6.1(L) 20.0 - 54.3 % HISTORICAL RESULTS Monos 5.1 4.3 - 13.5 % HISTORICAL RESULTS Eosinophils 2.6 0.0 - 6.0 % HISTORICAL RESULTS Basophils 0.1 0.0 - 3.0 % HISTORICAL RESULTS Neutrophils, abs 14.0(H) 1.8 - 6.6 K/cumm HISTORICAL RESULTS Lymphocytes, abs 1.0(L) 1.2 - 3.3 K/cumm HISTORICAL RESULTS Monocytes, absolute 0.8 0.2 - 1.2 K/cumm HISTORICAL RESULTS Eosinophils, abs 0.4 0.0 - 0.5 K/cumm HISTORICAL RESULTS Basophils, abs 0.0 0.0 - 0.2 K/cumm HISTORICAL RESULTS Blood specimen (specimen) 02/10/2013 3:10 PM CDT Ap Castillo MD LAB BLOOD ORDERABLES Final Result Performing Organization Address [facility] Phone Number HISTORICAL RESULTS * Blood ABO, Rh, indirect ab screen (02/10/2013 3:10 PM CDT) ABO, Rho(D) A Positive HISTORI NETTA RESULTS Lima, indirect Negative HISTORICAL RESULTS Blood specimen (specimen) 02/10/2013 3:10 PM CDT Ap Castillo MD LAB BLOOD ORDERABLES Final Result Performing Organization Address [facility] Phone Number HISTORICAL RESULTS * (ABNORMAL) Plasma amylase (02/10/2013 3:10 PM CDT) Queta, pl 1007(H) 28 - 100 Units/L HISTORICAL RESULTS Plasma 02/10/2013 3:10 PM CDT Ap Castillo MD LAB BLOOD ORDERABLES Final Result Performing Organization Address [facility] Phone Number HISTORICAL RESULTS * Methicillin-resistant Staphylococcus aureus (MRSA) surveillance culture (02/10/2013 3:09 PM CDT) Nasal (Unknown) 02/10/2013 3 :09 PM CDT 02/10/2013 3:49 PM CDT Impressions HISTORICAL RESULTS - 02/12/2013 7:33 AM CDT This test is for Infection Prevention surveillance; no charge to the patient. Narrative HISTORICAL RESULTS - 02/12/2013 7:33 AM CDT Negative Historical Provider LAB MICROBIOLOGY - GENERA L ORDERABLES Final Result Performing Organization Address [facility] Phone Number HISTORICAL RESULTS * Vancomycin-resistant enterococcus (VRE) screen (02/10/2013 3:09 PM CDT) Rectal swab (Unknown) 02/10/2013 3:09 PM CDT 02/10/2013 3:49 PM CDT Narrative HISTORICAL RESULTS - 02/13/2013 10:57 AM CDT Negative us Historical Provider MD LAB MICROBIOLOGY - GENERA L ORDERABLES Final Result HISTORICAL RESULTS * All Microbiology Report Section (02/10/2013 12:00 AM CDT) 02/10/2013 Narrative HISTORICAL RESULTS - 2013 6:23 AM CDT ? [facility] ?[address] [facility] [address] ?[place], [place] [address] ? Patient Name: ??GIVOANA LEBRON ? Med Rec Number: [id number] ? Fin Number: ?[id number] ? Date: ?1980 ? Sex/Age: ? Male 33 years ? Admit Date: ?02/10/2013 ? Discharge Date: ? Doctor: ?[facility] , 1302 ? Facility: ?[facility] ? Location: ?0102 [address] 01 ?* Abnormal ??A Alert ??f Footnote ??^ Corrected ??L Low ??H High ?i Interp Data ??@ Ref Lab ? Chart Type:Cumulative ?* * * * MICROBIOLOGY - MISCELLANEOUS * * * * ?PROCEDURE: MRSA Surveillance Culture ? SOURCE: Nasal ? COLLECTED: 02/10/13 ??1509 ?BODY SITE: ? STARTED: 02/10/13 ??1549 ? FREE TEXT SOURCE: ? FINAL REPORT ? REPORTED: 02/12/13 0733 ? Negative ?* * * ??Interpretive Results ??* * * ? (1)This test is for Infection Prevention surveillance; no charge to ? the patient. ? us Historical Provider MD LAB MICROBIOLOGY - GENERA L ORDERABLES Final Result HISTORICAL RESULTS * All Microbiology Report Section (02/10/2013 12:00 AM CDT) 02/10/2013 Narrative HISTORICAL RESULTS - 2013 6:23 AM CDT ? [facility] ?[address] [facility] [address] ?[place], [place] [address] ? Patient Name: ??GIOVANA LEBRON ? Med Rec Number: [id number] ? Fin Number: ?[id number] ? Date: ?1980 ? Sex/Age: ? Male 33 years ? Admit Date: ?02/10/2013 ? Discharge Date: ? Doctor: ?[facility] , 1302 ? Facility: ?[facility] ? Location: ?0102 [address] 01 ?* Abnormal ??A Alert ??f Footnote ??^ Corrected ??L Low ??H High ?i Interp Data ??@ Ref Lab ? Chart Type:Cumulative ?* * * * MICROBIOLOGY - GASTROINTESTINAL * * * * ?PROCEDURE: VRE Screen Culture ? SOURCE: Rectal swab ? COLLECTED: 02/10/13 ??1509 ?BODY SITE: ? STARTED: 02/10/13 ??1549 ? FREE TEXT SOURCE: ? FINAL REPORT ? REPORTED: 02/13/13 1057 ? Negative us Historical Provider MD LAB MICROBIOLOGY - GENERA L ORDERABLES Final Result HISTORICAL RESULTS * All Microbiology Report Section (02/10/2013 12:00 AM CDT) 02/10/2013 Narrative HISTORICAL RESULTS - 02/16/2013 9:38 AM CDT ? [facility] ?[facility] [address] ?[place] [address] ? Patient Name: ??GIOVANA LEBRON ? Med Rec Number: [id number] ? Fin Number: ?[id number] ? Date: ?1980 ? Sex/Age: ? Male 33 years ? Admit Date: ?02/10/2013 ? Discharge Date: ? Doctor: ?[facility] , 1302 ? Facility: ?[facility] ? Location: ?0102 [address] 01 ?* Abnormal ??A Alert ??f Footnote ??^ Corrected ??L Low ??H High ?i Interp Data ??@ Ref Lab ? Chart Type:Cumulative ?* * * * MICROBIOLOGY - BLOOD/STERILE FLUID * * * * ?PROCEDURE: Aerobic, Anaerobic and Mycology Culture, Blood ? SOURCE: Blood ? COLLECTED: 02/10/ ??1646 ?BODY SITE: Antecubital, right ? STARTED: 02/10/13 ??1739 ? FREE TEXT SOURCE: ? FINAL REPORT ? REPORTED: 02/16/13622 ? No growth us Historical Provider MD LAB MICROBIOLOGY - GENERA L ORDERABLES Final Result HISTORICAL RESULTS * All Microbiology Report Section (02/10/2013 12:00 AM CDT) 02/10/2013 Narrative HISTORICAL RESULTS - 02/16/2013 9:38 AM CDT ? [facility] ?[facility] [address] ?[place], [place] [address] ? Patient Name: ??GIOVANA LEBRON ? Med Rec Number: [id number] ? Fin Number: ?[id number] ? Date: ?1980 ? Sex/Age: ? Male 33 years ? Admit Date: ?02/10/2013 ? Discharge Date: ? Doctor: ?[facility] , 1302 ? Facility: ?[facility] ? Location: ?0102 [address] 01 ?* Abnormal ??A Alert ??f Footnote ??^ Corrected ??L Low ??H High ?i Interp Data ??@ Ref Lab ? Chart Type:Cumulative ?* * * * MICROBIOLOGY - BLOOD/STERILE FLUID * * * * ?PROCEDURE: Aerobic, Anaerobic and Mycology Culture, Blood ? SOURCE: Blood ? COLLECTED: 07/28/13 ??2100 ?BODY SITE: Peripheral ? STARTED: 07/28/13 ??2137 ? FREE TEXT SOURCE: ? FINAL REPORT ? REPORTED: 02/16/13 0623 ? No growth Historical Provider LAB MICROBIOLOGY - GENERA L ORDERABLES Final Result HISTORICAL RESULTS * ELECTROCARDIOGRAPHY (ECG) (02/10/2013) Narrative 02/10/2013 Ordered by an unspecified provider. Historical Provider ECG ORDERABLES Final Res ult documented in this encounter Visit Diagnoses Diagnosis Rhabdomyolysis Acute renal failure with lesion of tubular necrosis (CMS/HCC) (HCC) Acute kidney failure with lesion of tubular necrosis Acidosis Compartment syndrome of upper extremity, traumatic (HCC) Traumatic compartment syndrome of upper extremity Sedative, hypnotic or anxiolytic dependence, continuous abuse Other secondary thrombocytopenia Drug withdrawal (HCC) Drug withdrawal Contusion of forearm Fall Unspecified fall Place of occurrence, public building Edema Anemia Unspecified anemia Edema of male genital organs Constipation Unspecified constipation Personal history of allergy to penicillin Essential hypertension Unspecified essential hypertension Elevation of level of transaminase and lactic acid dehydrogenase (LDH) Opioid abuse (HCC) Nondependent opioid abuse, unspecified Nonspecific (abnormal) findings on radiological and other examination of other intrathoracic organs documented in this encounter
--- OUTSIDE RECORDS SUMMARY | 2024-07-20 15:50 | XMS_ITS | Encounter Summary ---
Author Organization [facility] Care Team Providers Care Manager Sales Training Name Role Phone Unavailable Primary Care Provider Unavailabl e Encounter Details Date Type Department Care Team (Late st Contact Info) Description 10/01/2007 - 10/01/2007 11:59 PM CDT Hospital Encounter [facility] [address] [place] [address] Pain in joint, upper arm Social History Tobacco Use Types Packs/Day Years Used Date Smoking Tobacco: Never Assessed Sex and Gender Information Value Date Recorded Sex Assigned at Not on file Legal Sex Male 6:06 AM CRISIS MANAGER Gender Identity Not on file Sexual Orientation Straight 11/28/2020 9: 06 AM CDT documented as of this encounter Plan of Treatment Not on file documented as of this encounter Visit Diagnoses Diagnosis Pain in joint, upper arm documented in this encounter
--- OUTSIDE RECORDS SUMMARY | 2024-07-20 19:39 | XMS_ITS | Encounter Summary ---
Author Organization [facility] Address [facility] [place] [address] [place] [address] Care Team Providers Care Brewery Representative Name Role Phone Baljeet Doran MD [...] on filedocumented in this encounter Care Teams Brewery Representative Relationship Specialty Start Date End Date Baljeet Doran MD [address] [place] [address] PCP - General 11/24/16 documented as of this encounter
--- OUTSIDE RECORDS SUMMARY | 2024-07-20 19:39 | XMS_ITS | Encounter Summary ---
Author Organization [facility] Address [facility] [place] [address] [place] [address] Care Team Providers Care Assignment Clerk Name Role Phone Baljeet Doran MD Primary Care Provider Reason for Visit * Auth/Cert Specialty Diagnoses / Procedures Referred By Contac t Referred To Contact Diagnoses RIGHT KNEE MEDIAL MENSICUS TEAR [phone] Procedures RIGHT KNEE ARTHROSCOPIC PARTIAL MEDIAL MENISECTOMY Referral ID Status Reason Start Date Expiration Date Visits Re quested Visits Authorized [id number] 1 1 Encounter Details Date Type Department Care Team (Latest Contact Info) Description 12/31/2019 11:25 AM CDT - 12/31/2019 5:38 PM CDT Hospital Encounter [facility] [place] [address] Delonte Parker MD [address] [place] [address] Discharge Disposition: Home or Self Care (Routine [...] Care Everywhere. * Hydrocodone and Acetaminophen, ADULT (Latvian) * Docusate, ADULT (Latvian) * Aspirin, ADULT (Latvian) * Naproxen, ADULT (Latvian) * General Anesthesia Discharge Instructions (Latvian) * Meniscal Tear Discharge Instructions (Latvian) * CRUTCH MOBILITY: PARTIAL WEIGHT BEARING (ARMENIAN) * Going Up and Down Curbs or Stairs With a Walker or Crutches (Latvian) documented in this encounter Medications at Time [...] during recuperation were discussed with the patient/family/personal factory representative. Reasonable alternatives to the patient's proposed procedure/surgery including benefits, risks, and side effects related to the alternatives and the risks related to not receiving the proposed care were also discussed with the patient/family/personal factory representative. Questions were answered and the patient/family/personal factory representative verbalized understanding and desires to proceed. [...] file Gets together: Not on file Attends voodoo service: Not on file Active member of [...] wipes used on arrival to [facility], betadine swabs x 2 placed in bilateral [...] test, Echo?) no Do you see a architecture manager? No No specialist/ PCP Darren HERR Pt instructed on covid testing verbalizes understanding. documented in this encounter OR Notes * Brief Op Note - Delonte Parker MD - 12/31/2019 2:43 PM CDT RIGHT KNEE ARTHROSCOPIC PARTIAL MEDIAL MENISECTOMY Procedure Note Raffaele Valenzuela 12/31/2019 1308 Procedure(s) (LRB): RIGHT KNEE ARTHROSCOPIC PARTIAL MEDIAL MENISECTOMY (Right) Surgeon(s): Delonte Parker MD Staff: Warp Knitter Helper: ZAYNAB Flood Relief Circulating Nurse: Juliann Pierre RN Relief Scrub: Nory Reddy RN Circulating Nurse 1: Enrique Gross RN Scrub Person 1: Tristin Mendoza, OUTREACH DIRECTOR Anesthesia: General Anesthesiologist: Tangela Pope MD BROADCAST DESIGNER: Paige Cam CRNA Pre-Op Diagnosis: right knee medial meniscus tear Post-Op Diagnosis: same Findings: See dictation Complications: None Estimated Blood Loss: minimal Specimens:* No orders in the log * Drains: None DELONTE PARKER MD Date: 12/31/2019 Time: 2:43 PM * Op Note - Delonte Parker MD - 12/31/2019 12:00 AM CDT SURGEON: eDlonte Parker MD. LEAD ADVISOR: ZAYNAB Jimenez. PREOPERATIVE DIAGNOSIS: Right knee medial [...] was transitionedto recovery room in stable condition. #[id number] /NTS * OR PreOp - JOHN Madera - 12/26/2019 12:22 PM CDT Chart reviewed. Per phone interview, patient denies any SOB/CP with 2 FOS or recent changes in activity tolerance in past 6 months. Per phone interview, patient denies having a architecture manager or previous cardiac testing. Patient scheduled for COVID testing 12/28/19. documented in this encounter Plan of Treatment Not on file documented as of this encounter Procedures Procedure Name Priority Date/Time Associated Diagnosis Comments ARTHROSCOPY KNEE MENISECTOMY 12/31/2019 1:02 PM CDT RIGHT KNEE MEDIAL MENSICUS TEAR [id number] Case Notes SCHED WITH MINOR ON 12/25/19 [facility] PHONE ASSESS Special Needs MITEK documented [...] (COMPLETED) 2 g, Intravenous, at 200 mL/hr, manager call to O.R., 1 dose, First dose on [...] MD) documented in this encounter Care Teams Assignment Clerk Relationship Specialty Start Date End Date Baljeet Doran MD [address] [address] PCP - General 11/24/16 documented as of this encounter
--- OUTSIDE RECORDS SUMMARY | 2024-07-20 19:39 | XMS_ITS | Clinical Summary ---
Author Organization [facility] Address [facility] 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) 01/28/2020 Furuncle of lower leg 11/22/2019 Bucket-handle [...] 2024 Meningococcal Vaccine Aged Out No mouna stephanie eligible based [...] complete this topic Insurance [employer] Care Teams Racebook Writer Relationship Specialty Start Date End Date Baljeet Doran MD [address] [facility] [address] [place] [address] PCP - General 11/24/16
--- OUTSIDE RECORDS SUMMARY | 2024-07-20 19:39 | XMS_ITS | Encounter Summary ---
Author Organization 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 Would like to stop. Has joint, back pain, nausea, diarrhea and anxiety since quitting. Encounter Details Date Type Department Care Team (Late st Contact Info) Description 07/13/2009 3:40 PM CALL CENTER SUPPORT REPRESENTATIVE - 07/13/2009 5:47 PM CALL CENTER SUPPORT REPRESENTATIVE Emergency ER at [address] [address] See Vinson MD [address] [place] [address] [place] [address] Drug Withdrawal (HCC); Nausea With Vomiting Discharge [...] Comments Blood Pressure 140/70 07/13/2009 5:46 PM CALL CENTER SUPPORT REPRESENTATIVE Pulse 98 07/13/2009 5:46 PM CALL CENTER SUPPORT REPRESENTATIVE Temperature 36.5 ??C (97.7 ??F) 07/13/2009 3:45 PM CS T Respiratory Rate 18 07/13/2009 3:45 PM CALL CENTER SUPPORT REPRESENTATIVE Oxygen Saturation 100% 07/13/2009 5:46 PM CALL CENTER SUPPORT REPRESENTATIVE Inhaled Oxygen Concentration - - Weight 88.5 kg (195 lb) 07/13/2009 3:45 PM CALL CENTER SUPPORT REPRESENTATIVE Height 175.3 cm (5' 9 ) 07/13/2009 3:45 PM CALL CENTER SUPPORT REPRESENTATIVE Body Mass Index 28.8 07/13/2009 3:45 PM CALL CENTER SUPPORT REPRESENTATIVE documented in this encounter Discharge Instructions * Discharge Instructions* Demetrice Dorsey RN - 07/13/2009 5:45 PM CALL CENTER SUPPORT REPRESENTATIVE * Discharge Instructions* David, Radha - 07/13/2009 12:00 AM CALL CENTER SUPPORT REPRESENTATIVE documented in this encounter Medications at Time [...] using Oxycontin. He tried to enroll in [facility] today but has to wait 1-2 days to be admitted. He would like some relief from his withdrawal symptoms until admission to [facility]. He last took an Oxycontin two [...] 6.5 (*) 22 - 41 (%) ??? Oliver 2.5 2 - 13 (%) ??? Eos 0.2 0 - 6 (%) ??? Baso 1.5 0 - 2 (%) ??? Gran Abs 12.2 (*) 1.7 - 7.7 ??? Lymph Abs 0.9 (*) 1.0 - 3.0 ??? Oliver Abs 0.3 0.2 - 1.0 ??? Eos [...] Yellow ??? Character UA Cloudy ??? Specific [place] UA 1.025 1.002 - 1.030 ??? pH [...] Opiate withdrawal, 2) Vomiting No diagnosis found. CENTER SUPPORT REPRESENTATIVE documented in this encounter Miscellaneous Notes * Miscellaneous Scans - Document, Scanned - 07/13/2009 12:00 AM CALL CENTER SUPPORT REPRESENTATIVE documented in this encounter Plan of Treatment Not on file documented as of this encounter Procedures Procedure Name Priority Date/Time Associated Diagnosis Comments CBC W AUTO DIFFERENTIAL STAT 07/13/2009 4:30 PM CALL CENTER SUPPORT REPRESENTATIVE Drug Withdrawal (HCC) COMPREHENSIVE METABOLIC PANEL STAT 07/13/2009 4:30 PM CALL CENTER SUPPORT REPRESENTATIVE Drug Withdrawal (HCC) LIPASE BLOOD STAT 07/13/2009 4:30 PM CALL CENTER SUPPORT REPRESENTATIVE Drug Withdrawal (HCC) AMYLASE BLOOD STAT 07/13/2009 4:30 PM CALL CENTER SUPPORT REPRESENTATIVE Drug Withdrawal (HCC) URINALYSIS REFLEX MICROSCOPIC REFLEX CULTURE STAT 07/13/2009 4:15 PM CALL CENTER SUPPORT REPRESENTATIVE Drug Withdrawal (HCC) URINE DRUG SCREEN IMMUNOASSAY STAT 07/13/2009 4:15 PM CALL CENTER SUPPORT REPRESENTATIVE Drug Withdrawal (HCC) documented in this encounter Results * LIPASE BLOOD (07/13/2009 4:30 PM CALL CENTER SUPPORT REPRESENTATIVE) Lipase 55. 23 - 208 U/L [facility] BLOOD SPECIMEN / Unknown 07/13/2009 4:30 PM CALL CENTER SUPPORT REPRESENTATIVE 07/13/2009 5:03 PM CALL CENTER SUPPORT REPRESENTATIVE See Vinson MD [facility] Performing Organization Address City/[facility]/ZIP Co de Phone Number [facility] [address] [place] [address] * (ABNORMAL) COMPREHENSIVE METABOLIC PANEL (07/13/2009 4:30 PM CALL CENTER SUPPORT REPRESENTATIVE) Glucose 118.(H) 75 - 110 mg/dL [facility] BUN 10. 9 - 21 mg/dL [facility] Creatinine .85 0.66 - 1.25 mg/dL [facility] BUN/Creatinine Ratio 11.6 [facility] Sodium 144. 137 - 145 mmol/L [facility] Potassium 3.9 3.6 - 5.0 mmol/L [facility] Chloride 104. 98 - 107 mmol/L [facility] CO2 26. 22 - 31 mmol/L [facility] Anion Gap 14. [facility] Calcium 10.2 8.4 - 11.5 mg/dL [facility] Alkaline Phosphatase 83. 38 - 126 U/L [facility] ALT 41. 7 - 56 U/L [facility] AST 23. 5 - 40 U/L [facility] Bilirubin Total .7 0.2 - 1.3 mg/dL [facility] Protein Total 8.7(H) 6.3 - 8.2 gm/dL [facility] Albumin 5.0 3.9 - 5.0 gm/dL [facility] eGFR by MDRD >60 SEE BELOW ml/min/1.7 3 m2 [facility] Comment: >60 Normal Chronic Disease <60 Renal Failure <15 BLOOD SPECIMEN / Unknown 07/13/2009 4:30 PM CALL CENTER SUPPORT REPRESENTATIVE 07/13/2009 5:03 PM CALL CENTER SUPPORT REPRESENTATIVE See Vinson MD LAB - CHEMISTRY TED RAMOS Performing Organization Address [facility]/ZIP Co de Phone Number [facility] [address] [place] [address] * (ABNORMAL) CBC W AUTO DIFFERENTIAL (07/13/2009 4:30 PM CALL CENTER SUPPORT REPRESENTATIVE) WBC 13.6(H) 4.0 - 11.0 K/CUMM [facility] RBC 5.41 4.10 - 5.70 M/CUMM [facility] Hemoglobin 16.0 12.6 - 17.4 gm/dL [facility] Hematocrit 45.5 37 - 52 % [facility] MCV 84.1 80 - 99 fL [facility] MCH 29.5 26 - 34 pg [facility] MCHC 35.1 32 - 36 gm/dL [facility] RDW 12.3 11.5 - 14.5 % [facility] Platelet Count 275 150 - 400 K/CUMM [facility] Granulocytes % 89.3(H) 43 - 70 % [facility] Lymphocytes % 6.5(L) 22 - 41 % [facility] Monocytes % 2.5 2 - 13 % [facility] Eosinophils % 0.2 0 - 6 % [facility] Basophils % 1.5 0 - 2 % [facility] Granulocytes Absolute 12.2(H) 1.7 - 7.7 [facility] Lymphocytes Absolute 0.9(L) 1.0 - 3.0 [facility] Monocytes Absolute 0.3 0.2 - 1.0 [facility] Eosinophils Absolute 0.0 0.0 - 0.4 [facility] Basophils Absolute 0.2(H) 0.0 - 0.1 [facility] Comment Slide scanned for immature granulocytes . [facility] BLOOD SPECIMEN / Unknown 07/13/2009 4:30 PM CALL CENTER SUPPORT REPRESENTATIVE 07/13/2009 5:03 PM CALL CENTER SUPPORT REPRESENTATIVE See Vinson MD LAB - HEMATOLOGY ORD ERABLES [facility] [address] [place] [address] * AMYLASE BLOOD (07/13/2009 4:30 PM CALL CENTER SUPPORT REPRESENTATIVE) Amylase 36. 30 - 110 U/L [facility] BLOOD SPECIMEN / Unknown 07/13/2009 4:30 PM CALL CENTER SUPPORT REPRESENTATIVE 07/13/2009 5:03 PM CALL CENTER SUPPORT REPRESENTATIVE See Vinson MD LAB - CHEMISTRY ORDE RICHARD [facility] [address] [place] [address] * URINALYSIS ROUTINE W/REFLEX TO CULTURE (07/13/2009 4:15 PM CALL CENTER SUPPORT REPRESENTATIVE) Source CleanCatch [facility] Color UA Yellow [facility] Character UA Cloudy [facility] Specific [place] UA 1.025 1.002 - 1.030 [facility] [...] CATCH PROCEDURE / Unknown 07/13/2009 4:15 PM CALL CENTER SUPPORT REPRESENTATIVE 07/13/2009 5:02 PM CALL CENTER SUPPORT REPRESENTATIVE See Vinson MD LAB - URINALYSIS ORD ERABLES [facility] [address] [place] [address] * DRUG SCREEN TOX URINE PANEL (07/13/2009 4:15 PM CALL CENTER SUPPORT REPRESENTATIVE) Amphetamines Screen Urine Not Detected 1000 ng/mL Cutoff ng/mL [facility] Barbiturates Screen Urine Not Detected 300 ng/mL Cutoff ng/mL [facility] Benzodiazepines Screen Urine Not Detected 300 ng/mL Cutoff ng/mL [facility] Cannabinoids Screen Urine Not Detected 20 ng/mL Cutoff ng/mL [facility] Cocaine Screen Urine Not Detected 300 ng/mL Cutoff ng/mL [facility] Methadone Screen Urine Not Detected 300 ng/mL Cutoff ng/mL [facility] Methaqualone Screen Urine Not Detected 300 ng/mL Cutoff ng/mL [facility] Opiate Screen Urine Presumptive Positive 300 ng/mL Cutoff ng/mL [facility] Phencyclidine Screen Urine Not Detected 25 ng/mL Cutoff ng/mL [facility] Propoxyphene Screen Urine Not Detected 300 ng/mL Cutoff ng/mL [facility] Oxycodone Screen Urine Not Detected 100 ng/mL Cutoff ng/mL [facility] Ecstasy Screen Urine Not Detected 500 ng/mL Cutoff ng/mL [facility] Creatinine Urine Tox 481.1 mg/dL [facility] GC/MS Screen Urine Negative [facility] Comment GC/MS Screen [facility] Comment: ? The GC/MS screen is [...] comp, police investigations, occupational issues, child custody. [facility] URINE / Unknown 07/13/2009 4 :15 PM CALL CENTER SUPPORT REPRESENTATIVE 07/13/2009 5:03 PM CALL CENTER SUPPORT REPRESENTATIVE See Vinson MD LAB - URINE CHEMISTR Y ORDERABLES [facility] [address] [place] [address] documented in this encounter Visit Diagnoses Diagnosis Drug withdrawal (HCC) Drug withdrawal Nausea with vomiting documented in this encounter Administered Medications Inactive Administered Medications - up to 3 most recent administrations Medication Order MAR Action Action Date Dose Rate Site 0.9% nacl infusion at 1,000 mL/hr, Intravenous, BOLUS IV, 1 dose, On Mon07/13/09 at 1615 $ Given 07/13/2009 4:15 PM CALL CENTER SUPPORT REPRESENTATIVE 1000 mL/hr cloNIDine (CATAPRES) tablet 0.1 mg 0.1 mg, Oral, ONCE, 1 dose, On Mon07/13/09 at 1615 $ Given 07/13/2009 4:49 PM CALL CENTER SUPPORT REPRESENTATIVE 0.1 mg ketorolac (TORADOL) injection 30 mg 30 mg, Intravenous, ONCE, 1 dose, On Mon07/13/09 at 1730 $ Given 07/13/2009 5:19 PM CALL CENTER SUPPORT REPRESENTATIVE 30 mg ondansetron (ZOFRAN) injection 4 mg 4 mg, Intravenous, ONCE, 1 dose, On Mon07/13/09 at 1615 $ Given 07/13/2009 4:50 PM CALL CENTER SUPPORT REPRESENTATIVE 4 mg thiamine (B-1) injection 100 mg 100 mg, Intravenous, ONCE, 1 dose, On Mon07/13/09 at 1615 $ Given 07/13/2009 4:50 PM CALL CENTER SUPPORT REPRESENTATIVE 100 mg documented in this encounter Active and Recently Administered Medications Times are shown in CALL CENTER SUPPORT REPRESENTATIVE. Scheduled Medication Order 07/11/2009 07/12/2009 07/13/2009 0.9% [...] RN) documented in this encounter Care Teams Evaluation Advisor Relationship Specialty Start Date End Date Nopcp, Patient PCP - General 07/13/09 10/08/13 documented as of this encounter
--- OUTSIDE RECORDS SUMMARY | 2024-07-20 19:39 | XMS_ITS | Encounter Summary ---
Author Organization [facility] Address [facility] [facility] [place] [address] [place] [address] Care Team Providers Care Money Market Dealer Name Role Phone Baljeet Doran MD Primary [...] on filedocumented in this encounter Care Teams Money Market Dealer Relationship Specialty Start Date End Date Baljeet Doran MD [address] [place] [address] PCP - General 11/24/16 documented as of this encounter
--- OUTSIDE RECORDS SUMMARY | 2024-07-20 19:39 | XMS_ITS | Encounter Summary ---
Author Organization [facility] Address [facility] [facility] [place] [address] [place] [address] Care Team Providers Care Heel Padder Name Role Phone Baljeet Doran MD Primary [...] on filedocumented in this encounter Care Teams Heel Padder Relationship Specialty Start Date End Date Baljeet Doran MD [address] [place] [address] PCP - General 11/24/16 documented as of this encounter
--- OUTSIDE RECORDS SUMMARY | 2024-07-20 19:39 | XMS_ITS | Encounter Summary ---
Author Organization [facility] Address [facility] [facility] [place] [place] [address] [place] [address] Care Team Providers Care Ethylene Oxide Panelboard Operator Name Role Phone Baljeet Doran MD Primary Care Provider Reason for Referral * Consultation (Urgent) - Closed Specialty Diagnoses / Procedures Referred By Contac t Referred To Contact ORTHOPAEDIC SURGERY Diagnoses Closed displaced fracture of acromial end of right clavicle with routine healing, subsequent encounter Baljeet Doran MD [address] [address] Phone: tel: fax: Andi Eugene MD [address] [facility] [address] [place] [address] Phone: tel: fax: Referral ID Status Reason Start Date Expiration Date V isits Requested Visits Authorized [id number] Closed Specialty Services 11/03/2020 12/04/2021 1 1 [...] Description 11/03/2020 9:40 AM CDT Office Visit [facility] Family Medicine - [address] [place] [address] Baljeet Doran MD [address] [place] [address] Follow Up (patient reports a [...] constipation documented in this encounter Care Teams Ethylene Oxide Panelboard Operator Relationship Specialty Start Date End Date Baljeet Doran MD [address] [address] PCP - General 11/24/16 documented as of this encounter
--- OUTSIDE RECORDS SUMMARY | 2024-07-20 19:39 | XMS_ITS | Encounter Summary ---
Author Organization [facility] Address [facility] [place] [address] [place] [address] Care Team Providers Care Tree Puller Name Role Phone Baljeet Doran MD Primary Care Provider Reason for Visit * Reason Comments Fall Encounter Details Date Type Department Care Team (Late st Contact Info) Description 10/31/2020 8:59 AM CDT - 10/31/2020 10:35 AM CDT Emergency [facility] [place] [address] Stella Gillespie NP [address] [address] Fall Discharge Disposition: Home or Self Care [...] Care Everywhere. * Clavicle Fracture Discharge Instructions (Singaporean) documented in this encounter Medications at Time [...] :Alcohol dependence with alcohol-induced anxiety disorder (CMS/HCC [facility]/HCC) Take 2 tablets (666 mg total) [...] RT MIN 2V Final Result by User, [id number] (10/31 1004) 3 VIEWS OF THE RIGHT SHOULDER Clinical [...] XR CLAVICLE RT Final Result by User, [email or web address] (10/31 1004) 2 VIEWS OF THE RIGHT [...] By: Ru Chauhan MD, 10/31/2020 10:02 AM ED Course / [...] Supply, Starting 10/31/2020, Eprescribe Class: Eprescribe Pharmacy: [facility]/pharmacy [address] [place] [address] (Ph #: [phone]) ibuprofen 600 MG tablet Take 1 tablet (600 mg total) by mouth every 6 (six) hours as needed., Starting 10/31/2020, Until Mon11/10/2020, Eprescribe Class: Eprescribe Pharmacy: [facility]/pharmacy [address] [place] [address] (Ph #: [phone]) Medications HYDROcodone-acetaminophen (NORCO) 5-325 MG tablet 1 tablet (1 tablet Oral Given 10/31/[address]) Discharge Medication List as of 10/31/2020 10:27 AM START taking these medications Details HYDROcodone-acetaminophen (NORCO) 5-325 MG tablet Take 1 tablet by mouth every 6 (six) hours as needed. Indications: Acute Pain < 7 Day Supply, Starting 10/31/2020, Eprescribe Class: Eprescribe Pharmacy: [facility]/pharmacy [address] [place] [address] (Ph #: [phone]) ibuprofen 600 MG tablet Take 1 tablet (600 mg total) by mouth every 6 (six) hours as needed., Starting 10/31/2020, Until Mon11/10/2020, Eprescribe Class: Eprescribe Pharmacy: [facility]/pharmacy #[id number] - [place], [place] - [address] ( #: [phone]) Disposition: Discharge Follow-Up: Baljeet Doran MD [address] [place] [address] As needed Allan Berg [facility] [facility] [address] [place] [address] Schedule an appointment as soon as possible [...] AM CDT Pt [place] couple of stairs [...] MD, 10/31/2020 10:02 AM us Stella Gillespie [facility] Final Result * XR SHOULDER [...] Chauhan MD, 10/31/2020 10:03 AM Stella Gillespie [facility] Final Result documented in this [...] RN) documented in this encounter Care Teams Tree Puller Relationship Specialty Start Date End Date Baljeet Doran MD [address] [address] PCP - General 11/24/16 documented as of this encounter
--- OUTSIDE RECORDS SUMMARY | 2024-07-20 19:39 | XMS_ITS | Encounter Summary ---
Author Organization [facility] Address [facility] [place] [address] [place] [address] Care Team Providers Care Career Technical Education Instructor Name Role Phone Baljeet Doran MD Primary Care Provider Reason for Visit * Auth/Cert Specialty Diagnoses / Procedures Referred By Contac t Referred To Contact Diagnoses RIGHT KNEE MEDIAL MENSICUS TEAR [id number] Procedures RIGHT KNEE ARTHROSCOPIC PARTIAL MEDIAL MENISECTOMY Referral ID Status Reason Start Date Expiration Date Visits Re quested Visits Authorized [id number] 1 1 Encounter Details Date Type Department Care Team (Late st Contact Info) Description 12/31/2019 1:08 PM CDT - 12/31/2019 3:34 PM CDT Surgery [facility] [place] [address] Delonte Parker MD [address] [place] [address] RIGHT KNEE ARTHROSCOPIC PARTIAL MEDIAL MENISECTOMY Surgery [...] Case Notes SCHED WITH MINOR ON 12/25/19 [facility] PHONE ASSESS Special Needs MITEK [...] Care Everywhere. * Hydrocodone and Acetaminophen, ADULT (Venezuelan) * Docusate, ADULT ([place]) * Aspirin, ADULT (Venezuelan) * Naproxen, ADULT (Venezuelan) * General Anesthesia Discharge Instructions (Venezuelan) * Meniscal Tear Discharge Instructions (Venezuelan) * CRUTCH MOBILITY: PARTIAL WEIGHT BEARING (SUDANESE) * Going Up and Down Curbs or Stairs With a Walker or Crutches (Venezuelan) documented in this encounter Medications at Time [...] during recuperation were discussed with the patient/family/personal parts representative. Reasonable alternatives to the patient's proposed procedure/surgery including benefits, risks, and sideeffects related to the alternatives and the risks related to not receiving the proposed care were also discussed with the patient/family/personal parts representative. Questions were answered and the patient/family/personal parts representative verbalized understanding and desires to proceed. Source Note - Delonte Parekr MD - 12/25/2019 1:20 PM CDT Images [...] file Gets together: Not on file Attends worship service: Not on file Active member of [...] CHG wipes used on arrival to [facility], betadine swabs x 2 placed in bilateral nares per RN. Pt tolerated well. * Phoeeb Allison RN - 12/25/2019 4:25 PM CDT Can you climb 2 flights of stairs without CP or extreme SOB? yes Are you physically able to do the same things today that you could 6 months ago? ??yes Any recent heart testing? (EKG, stress test, Echo?) no Do you see a mouthpiece maker? No No specialist/ PCP [employer] Pt instructed on covid testing verbalizes understanding. documented in this encounter OR Notes * Brief Op Note - Delonte Parker MD - 12/31/2019 2:43 PM CDT RIGHT KNEE ARTHROSCOPIC PARTIAL MEDIAL MENISECTOMY Procedure Note Raffaele Valenzuela 12/31/2019 1308 Procedure(s) (LRB): RIGHT KNEE ARTHROSCOPIC PARTIAL MEDIAL MENISECTOMY (Right) Surgeon(s): Delonte Parker MD Staff: Die Try Out Worker Stamping: ZAYNAB Flood Relief Circulating Nurse: Juliann Pierre RN Relief Scrub: Nory Reddy RN Circulating Nurse 1: Enrique Gross RN Scrub Person 1: Tristin Mendoza, COLLECTIONS DIRECTOR Anesthesia: General Anesthesiologist: Tangela Pope MD SUPERVISOR WINDING DEPARTMENT: Paige Cam CRNA Pre-Op Diagnosis: right knee medial meniscus tear Post-Op Diagnosis: same Findings: See dictation Complications: None Estimated Blood Loss: minimal Specimens:* No orders in the log * Drains: None DELONTE PARKER MD Date: 12/31/2019 Time: 2:43 PM * Op Note - Delonte Parker MD - 12/31/2019 12:00 AM CDT SURGEON: Delonte Parker MD. HEMMER CHAINSTITCH: ZAYNAB Jimenez. PREOPERATIVE DIAGNOSIS: Right knee medial [...] was transitionedto recovery room in stable condition. #[id number] /NTS * OR PreOp - JOHN Madera - 12/26/2019 12:22 PM CDT Chart reviewed. Per phone interview, patient denies any SOB/CP with 2 FOS or recent changes in activity tolerance in past 6 months. Per phone interview, patient denies having a mouthpiece maker or previous cardiac testing. Patient scheduled for COVID testing 12/28/19. documented in this encounter Plan of Treatment Not on file documented as of this encounter Procedures Procedure Name Priority Date/Time Associated Diagnosis Comments ARTHROSCOPY KNEE MENISECTOMY 12/31/2019 1:02 PM CDT RIGHT KNEE MEDIAL MENSICUS TEAR [id number] Case Notes SCHED WITH MINOR ON 12/25/19 [facility] PHONE ASSESS Special Needs MITEK [...] (COMPLETED) 2 g, Intravenous, at 200 mL/hr, de icer installer to O.R., 1 dose, First dose on [...] MD) documented in this encounter Care Teams Career Technical Education Instructor Relationship Specialty Start Date End Date Baljeet Doran MD [address] [place] [address] PCP - General 11/24/16 documented as of this encounter
--- OUTSIDE RECORDS SUMMARY | 2024-07-20 19:39 | XMS_ITS | CONTINUITY OF CARE DOCUMENT ---
Author Name eraneran Address Unknown Organization [facility] Address [address] [place] [address] Phone [phone] Care Team Providers Care Quality Assurance Qa Lab Analyst Name Role Phone Matt King MD Unavailable [phone] Matt King MD Unavailable [phone] CHRIS HELTON MD Unavailable [phone] INSURANCE PROVIDERS Payer name Policy type / Coverage type Eddie red alliance party ID [facility] MEDICAID (2) Medicaid [id number]
--- OUTSIDE RECORDS SUMMARY | 2024-07-20 19:39 | XMS_ITS | Encounter Summary ---
Author Organization [facility] Address Pending sale to [facility] [place] [address] [place] [address] Care Team Providers Care Transfer Controller Name Role Phone Baljeet Doran MD Primary [...] on filedocumented in this encounter Care Teams Transfer Controller Relationship Specialty Start Date End Date Baljeet Doran MD [address] [place] [address] PCP - General 11/24/16 documented as of this encounter
--- OUTSIDE RECORDS SUMMARY | 2024-07-20 19:39 | XMS_ITS | Encounter Summary ---
Author Organization [facility] Address [facility] [place] [address] [place] [address] Care Team Providers Care Sheet Cutter Name Role Phone Baljeet Doran MD Primary Care Provider Reason for Visit * Reason Onset Date Comments Referral 11/03/2020 Encounter Details Date Type Department Care Team (Late st Contact Info) Description 11/03/2020 Telephone [facility] Medical Group Family Medicine - [place] [address] [place] [address] Baljeet Doran MD [address] [place] [address] Referral Social History Tobacco Use [...] MA - 11/04/2020 1:43 PM CDT Contacted [facility] Ortho to get patient scheduled for Emergent referral. Patient is scheduled at 12:[address] Eugene on 11/05/20 at [address] [facility] [place] [address]. Patient has been notified of appointment and instructed to bring copy of imaging and report. Patient was instructed to call [phone] when outside building for appointment. * Lulu Abebe MA - 11/04/2020 1:01 PM CDT Kala Ferreira called from [facility] stating that she had all the doctors available review patients imaging and they suggest surgery RANDY but that they are unable to do surgery. The physicians suggest patient go to Ortho at [facility]. Called patient regarding his ortho appointment today with Dr. Miranda at [facility]. Patient stated he had to cancel that appointment due to him being in the ER at [facility] for SOB anddizziness. I notified him that [facility] is unable to see him but that they suggest surgery RANDY and referred him to [facility]. I told patient to please call Dr. Miranda's office to reschedule that appointment and that we would try to get him seen at [facility]. Patient verbalized understanding. * Lulu Abebe MA - 11/03/2020 4:08 PM CDT Patient's mother Jyothi called regarding ortho referral. Jyothi stated that the patient has an appointment at [facility] in [facility] tomorrow with Dr. Miranda. Damari would [...] PM CDT [facility] She did not answer, message left for return call. Spoke with Kala Ferreira, she stated that they are working on getting the imaging viewed by their physicians. I advised her that patient does have an appointment tomorrow with Dr. Miarnda in [place] but to keep working on trying to get patient seen at [facility]. She verbalized understanding. * Rafaela Garcia - 11/03/2020 3:16 PM CDT Kala Ferreira from [facility] Orthopedic Dept is calling. She wanted to let the MA know that they are working on getting the patient with a doctor. She would like a call back from the MA. * Lulu Abebe MA - 11/03/2020 2:48 PM CDT Kala Ferreira from [facility] called regarding emergent referral. Kala Ferreira stated that they are unable to see the patient due to low staff. * Lulu Abebe MA - 11/03/2020 11:16 AM CDT Patient's insurance not accepted at [facility]. Referral faxed to Kala Ferreira at [facility] department at [phone] for scheduling. Kala Ferreira stated that they are booked out until 12/04 but that she will try to get scheduled sooner and be in contact. * Lulu Abebe MA - 11/03/2020 10:59 AM CDT Emergent referral for Dr. Berg faxed to [phone]. documented in this encounter Plan of Treatment Not on file documented as of this encounter Visit Diagnoses Not on filedocumented in this encounter Care Teams Sheet Cutter Relationship Specialty Start Date End Date Baljeet Doran MD [address] [address] PCP - General 11/24/16 documented as of this encounter
--- OUTSIDE RECORDS SUMMARY | 2024-07-20 19:39 | XMS_ITS | Referral Summary ---
Author Organization [facility] Address [address] [place] [address] Care Team Providers Care Park Guard Name Role Phone Unavailable Primary Care Provider Unavailabl e Source Comments [facility],non-owned Affiliates and Associated Physician Practices is amultiple site organization consisting of ambulatory clinics and hospital sitesin [place], [place] and [place]. This disclosure is being madepursuant to the Care Everywhere program and may not contain all information available regarding this patient. Last updated 18.[facility] Allergies No known active allergies Medications * [...] Comments Blood Pressure 140/70 07/13/2009 5:46 PM CHECKING DEPARTMENT SUPERVISOR Pulse 98 07/13/2009 5:46 PM CHECKING DEPARTMENT SUPERVISOR Temperature 36.5 ??C (97.7 ??F) 07/13/2009 3:45 PM CS T Respiratory Rate 18 07/13/2009 3:45 PM CHECKING DEPARTMENT SUPERVISOR Oxygen Saturation 100% 07/13/2009 5:46 PM CHECKING DEPARTMENT SUPERVISOR Inhaled Oxygen Concentration - - Weight 88.5 kg (195 lb) 07/13/2009 3:45 PM CHECKING DEPARTMENT SUPERVISOR Height 175.3 cm (5' 9 ) 07/13/2009 3:45 PM CHECKING DEPARTMENT SUPERVISOR Body Mass Index 28.8 07/13/2009 3:45 PM CHECKING DEPARTMENT SUPERVISOR Plan of Treatment Not on file
--- OUTSIDE RECORDS SUMMARY | 2024-07-20 19:39 | XMS_ITS | Encounter Summary ---
Author Organization [facility] Address [facility] [facility] [place] [address] [place] [address] Care Team Providers Care Vice President Of Software Development Name Role Phone Baljeet Doran MD Primary Care Provider Encounter Details Date Type Department Care Team (Latest Contact Info) Description 12/28/2019 12:35 PM CDT - 12/28/2019 11:59 PM CDT Hospital Encounter [facility] [place] [address] Delonte Agudelo MD [address] [place] [address] Discharge Disposition: Home or Self Care (Routine [...] DETECTED NOT DETECTED 12/29/2019 1:50 PM CDT [facility] Comment: A Not Detected (negative) test result [...] providers and patients using the following websites: https://www.[employer].Clinithink/home/Covid-19/HCP/QuestIVD/fact- sheet.html https://www.[employer].Clinithink/home/Covid-19/Patients/ QuestIVD/fact-sheet.html This test has been authorized by the FDA under an Emergency Use Authorization (EUA) for use by authorized laboratories. Due to the current public health emergency, [facility] is receiving a high volume of samples [...] about COVID-19 can be found at the [facility] website: www.[facility]utor/Covid19. Test performed at [facility] [place] [address] [place], [place] ??[address] Director: SIVA FRANCIS DO,MPH NASOPHARYNGEAL SWAB / Unknown 12/28/2019 11:45 AM CDT us Delonte Agudelo MD MICROBIOLOGY - GENERAL ORDER TRUNG Final Result [facility] [address] [address] documented in this encounter Visit Diagnoses Diagnosis Preop testing Preoperative examination, unspecified documented in this encounter Additional Health Concerns Infection Onset Date Last Indicated Resolved Time COVID-19 Rule Out 12/28/2019 12/28/2019 12/29/2019 1:50 PM CDT documented as of this encounter Care Teams Vice President Of Software Development Relationship Specialty Start Date End Date Baljeet Doran MD [address] [id number] PCP - General 11/24/16 documented as of this encounter
--- OUTSIDE RECORDS SUMMARY | 2024-07-20 19:39 | XMS_ITS | Encounter Summary ---
Author Organization [facility] Address Critical access hospital6 [facility] [place] [address] [place] [address] Care Team Providers Care Shrinker Name Role Phone Baljeet Doran MD Primary Care Provider Reason for Visit * Reason Onset Date Comments Schedule Surgery 12/26/2019 Encounter Details Date Type Department Care Team (Late st Contact Info) Description 12/26/2019 Telephone [facility] Medical Group Multispecialty Care - [facility] [address] [place] [address] Delonte Agudelo MD [address] [place] [phone] Schedule Surgery Social History Tobacco Use Types [...] on filedocumented in this encounter Care Teams Shrinker Relationship Specialty Start Date End Date Baljeet Doran MD [address] [address] PCP - General 11/24/16 documented as of this encounter
--- OUTSIDE RECORDS SUMMARY | 2024-07-20 19:39 | XMS_ITS | Encounter Summary ---
Author Organization [facility] Address [address] [place] [address]. [place] [address] [place] [address] Care Team Providers Care Bottom Buffer Name Role Phone Baljeet Doran MD Primary [...] filedocumented in this encounter Care Teams Bottom Buffer Relationship Specialty Start Date End Date Baljeet Doran MD [address], [place] [phone] PCP - General 11/24/16 documented as of this encounter
--- OUTSIDE RECORDS SUMMARY | 2024-07-20 19:39 | XMS_ITS | Encounter Summary ---
Author Organization [facility] Address [facility] [place] [address] [place] [address] Care Team Providers Care Conduit Cleaner Name Role Phone Baljeet Doran MD Primary Care Provider Reason for Visit * Reason Onset Date Comments Back Pain 11/03/2020 left flank pain Encounter Details Date Type Department Care Team (Late st Contact Info) Description 11/03/2020 Nurse Triage [facility] Medical Group Family Medicine - [place] [address] [place] [phone] Baljeet Doran MD [address] [place], [place] [phone] Back Pain (left flank pain) Social History [...] Patient called stating he was seen at [facility] ER on 10/31/20 for a fall. He was diagnosed with right clavicle fracture. He states he has bruising from the fall. He states he has pain in his left flank area. Denies blood in urine. Denies burning, frequency, or urgency with urination. Denies fever, body aches, chills. Patient is taking [place] right now due to the clavicle fracture. [...] No Are you a healthcare worker or optic fibre drawer? No Reason for Disposition ??? MODERATE pain (e.g., interferes with normal activities or awakens from sleep) Protocols used: FLANK [id number]-CC documented in this encounter Plan of Treatment Not on file documented as of this encounter Visit Diagnoses Not on filedocumented in this encounter Care Teams Conduit Cleaner Relationship Specialty Start Date End Date Baljeet Doran MD [address] [address] PCP - General 11/24/16 documented as of this encounter
--- OUTSIDE RECORDS SUMMARY | 2024-07-20 19:39 | XMS_ITS | Encounter Summary ---
Author Organization [facility] Address [facility] [address] [place] [address] Care Team Providers Care Development Planner Name Role Phone Baljeet Doran MD Primary Care Provider Reason for Visit * Reason Comments New Patient right knee * Consultation (Urgent) - Closed Specialty Diagnoses / Procedures Referred By Contac t Referred To Contact ORTHOPAEDICS Diagnoses Chronic pain of right knee Baljeet Doran MD [address] [place] [address] Phone: tel: fax: Victoriano Parker MD Phone: tel: fax: Referral ID Status Reason Start Date Expiration Date V isits Requested Visits Authorized [id number] Closed Specialty Services 08/06/2019 09/05/2020 100 100 Encounter Details Date Type Department Care Team (Latest Contact Info) Description 12/25/2019 1:20 PM CDT Office Visit [facility] Medical Group Multispecialty Care - [facility] [address] [place] [phone] Victoriano Parker MD [address] [place] [address] New Patient (right knee) Social [...] file Gets together: Not on file Attends islam service: Not on file Active member of [...] Primary documented in this encounter Care Teams Development Planner Relationship Specialty Start Date End Date Baljeet Doran MD [address] [address] PCP - General 11/24/16 documented as of this encounter
--- OUTSIDE RECORDS SUMMARY | 2024-07-20 19:39 | XMS_ITS | Encounter Summary ---
Author Organization [facility] Address [facility] [place] [address] [place] [address] Care Team Providers Care Well Digger Name Role Phone Baljeet Doran MD Primary [...] on filedocumented in this encounter Care Teams Well Digger Relationship Specialty Start Date End Date Baljeet Doran MD [address] [place] [address] PCP - General 11/24/16 documented as of this encounter
--- OUTSIDE RECORDS SUMMARY | 2024-07-20 19:39 | XMS_ITS | Encounter Summary ---
Author Organization [facility] Address [facility] [place] [address] [place] [address] Care Team Providers Care Director Private Name Role Phone Baljeet Doran MD [...] filedocumented in this encounter Care Teams Director Private Relationship Specialty Start Date End Date Baljeet Doran MD [address] [place] [address] PCP - General 11/24/16 documented as of this encounter
--- OUTSIDE RECORDS SUMMARY | 2024-07-20 19:39 | XMS_ITS | Encounter Summary ---
Author Organization [facility] Address [facility] [place] [address] [place] [address] Care Team Providers Care Compression Molding Machine Setter Name Role Phone Baljeet Doran MD Primary Care Provider Reason for Visit * Reason Onset Date Comments Medication 12/31/2019 Encounter Details Date Type Department Care Team (Late st Contact Info) Description 12/31/2019 Telephone [facility] Medical Group Multispecialty Care - [facility] [address] [place] [address] Delonte Agudelo MD [address] [place] [phone] Medication Social History Tobacco Use Types Packs/Day [...] 3:55 PM CDT Spoke to Yas at [facility] pharmacy. Clarified the dosage and instructions for naproxen and docusate sodium RX. * Mikala Chao - 12/31/2019 3:06 PM CDT [facility] Pharmacy called in, received scripts for Naproxen 1 every 12 hours for 7 days but quantity is 60 Docusate 1 every 12 hours for 7 days but quantity is 60 Please follow up with [facility] to clarify. documented in this encounter Plan of Treatment Not on file documented as of this encounter Visit Diagnoses Not on filedocumented in this encounter Care Teams Compression Molding Machine Setter Relationship Specialty Start Date End Date Baljeet Doran MD [address] [address] PCP - General 11/24/16 documented as of this encounter
--- OUTSIDE RECORDS SUMMARY | 2024-07-20 19:39 | XMS_ITS | Encounter Summary ---
Author Organization [facility] Address [facility] [address] [place] [address] Care Team Providers Care Return To Vendor Name Role Phone Baljeet Doran MD Primary [...] on filedocumented in this encounter Care Teams Return To Vendor Relationship Specialty Start Date End Date Baljeet Doran MD [address] [place] [address] PCP - General 11/24/16 documented as of this encounter
--- OUTSIDE RECORDS SUMMARY | 2024-07-20 19:39 | XMS_ITS | Encounter Summary ---
Author Organization [facility] Address [facility] [place] [address] [place] [address] Care Team Providers Care Treating And Pumping Supervisor Name Role Phone Baljeet Doran MD [...] documented as of this encounter Care Teams Treating And Pumping Supervisor Relationship Specialty Start Date End Date Baljeet Doran MD [address] [place] [address] PCP - General 11/24/16 documented as of this encounter
--- OUTSIDE RECORDS SUMMARY | 2024-07-20 19:39 | XMS_ITS | Encounter Summary ---
Author Organization [facility] Address Critical access hospital6 [facility] [place] [address] [place] [address] Care Team Providers Care Dictating Machine Mechanic Name Role Phone Baljeet Doran MD Primary Care Provider Reason for Visit * Reason Onset Date Comments Question 01/28/2020 Questioning medi cation prescribed by PCP Encounter Details Date Type Department Care Team (Late st Contact Info) Description 01/28/2020 Telephone [facility] Medical Group Family Medicine - [place] [address] [place] [address] Baljeet Doran MD [address] [place], [place] [phone] Question (Questioning medication prescribed by PCP) Social [...] injections as this is typically by an credit operations specialist. I discussed using librium which would [...] by PCP. [facility]ts [facility] answering staff after being [...] on filedocumented in this encounter Care Teams Dictating Machine Mechanic Relationship Specialty Start Date End Date Baljeet Doran MD [address] [facility] [address] [place] [address] PCP - General 11/24/16 documented as of this encounter
--- OUTSIDE RECORDS SUMMARY | 2024-07-20 19:39 | XMS_ITS | Encounter Summary ---
Author Organization [facility] Address [facility] [facility] [place] [address] [place] [address] Care Team Providers Care Bilingual Instructor Name Role Phone Baljeet Doran MD Primary Care Provider Reason for Visit * Reason Comments Postop Followup right knee * Consultation (Urgent) - Closed Specialty Diagnoses / Procedures Referred By Contac t Referred To Contact ORTHOPAEDICS Diagnoses Chronic pain of right knee Baljeet Doran MD [address] [place] [address] Phone: tel: fax: Victoriano Parker MD Phone: tel: fax: Referral ID Status Reason Start Date Expiration Date V isits Requested Visits Authorized [id number] Closed Specialty Services 08/06/2019 09/05/2020 100 100 Encounter Details Date Type Department Care Team (Latest Contact Info) Description 01/15/2020 9:40 AM CDT Office Visit [facility] Medical Group Multispecialty Care - [facility] [address] [facility] [place] [phone] Victoriano Parker MD [address] [place] [address] Postop Followup (right knee) Social [...] surgery documented in this encounter Care Teams Bilingual Instructor Relationship Specialty Start Date End Date Baljeet Doran MD [address] [place] [address] PCP - General 11/24/16 documented as of this encounter
--- OUTSIDE RECORDS SUMMARY | 2024-07-20 19:39 | XMS_ITS | Clinical Summary ---
Author Organization [facility] Address [address] [place] [address] Care Team Providers Care Bath Attendant Name Role Phone Unavailable Primary Care Provider Unavailabl e Source Comments [facility],non-owned Affiliates and Associated Physician Practices is amultiple site organization consisting of ambulatory clinics and hospital sitesin [place], [place], [place] and [place]. This disclosure is being madepursuant to the Care Everywhere program and may not contain all information available regarding this patient. Last updated 18.[facility] Allergies No known active allergies Medications * [...] Comments Blood Pressure 140/70 07/13/2009 5:46 PM DEBONE SUPERVISOR Pulse 98 07/13/2009 5:46 PM DEBONE SUPERVISOR Temperature 36.5 ??C (97.7 ??F) 07/13/2009 3:45 PM CS T Respiratory Rate 18 07/13/2009 3:45 PM DEBONE SUPERVISOR Oxygen Saturation 100% 07/13/2009 5:46 PM DEBONE SUPERVISOR Inhaled Oxygen Concentration - - Weight 88.5 kg (195 lb) 07/13/2009 3:45 PM DEBONE SUPERVISOR Height 175.3 cm (5' 9 ) 07/13/2009 3:45 PM DEBONE SUPERVISOR Body Mass Index 28.8 07/13/2009 3:45 PM DEBONE SUPERVISOR Plan of Treatment Health Maintenance Due Date [...]
--- OUTSIDE RECORDS SUMMARY | 2024-07-20 19:39 | XMS_ITS | Encounter Summary ---
Author Organization [facility] Address [facility] [place] [address] [place] [address] Care Team Providers Care Shot Man Name Role Phone Baljeet Doran MD Primary [...] on filedocumented in this encounter Care Teams Shot Man Relationship Specialty Start Date End Date Baljeet Doran MD [address] [place] [address] PCP - General 11/24/16 documented as of this encounter
--- OUTSIDE RECORDS SUMMARY | 2024-07-20 19:39 | XMS_ITS | Encounter Summary ---
Author Organization [facility] Address [facility] [facility] [place] [address] [place] [address] Care Team Providers Care Gang Investigator Name Role Phone Baljeet Doran MD Primary Care Provider Encounter Details Date Type Department Care Team (Late st Contact Info) Description 12/25/2019 Prep for Procedure [facility] [address] [place], [place] [id number] Delonte Agudelo MD [address] [place] [phone] Social History Tobacco Use Types Packs/Day Years [...] DETECTED NOT DETECTED 12/29/2019 1:50 PM CDT [facility] Comment: A Not Detected (negative) test result [...] providers and patients using the following websites: https://www.[employer].SHADO/home/Covid-19/HCP/QuestIVD/fact- sheet.html https://www.[employer].SHADO/home/Covid-19/Patients/ QuestIVD/fact-sheet.html This test has been authorized by the FDA under an Emergency Use Authorization (EUA) for use by authorized laboratories. Due to the current public health emergency, [facility] is receiving a high volume of samples [...] about COVID-19 can be found at the [facility] website: www.[employer].com.SHADO/Covid19. Test performed at [facility] [address] ??[phone] Director: SIVA FRANCIS DO,MPH NASOPHARYNGEAL SWAB / Unknown 12/28/2019 11:45 AM CDT Delonte Agudelo MD MICROBIOLOGY - GENERAL ORDER TRUNG Final Result [facility] [place] [address] [place] [address], documented in this encounter Visit Diagnoses Diagnosis Preop testing- Primary Preoperative examination, unspecified documented in this encounter Additional Health Concerns Infection Onset Date Last Indicated Resolved Time COVID-19 Rule Out 12/28/2019 12/28/2019 12/29/2019 1:50 PM CDT documented as of this encounter Care Teams Gang Investigator Relationship Specialty Start Date End Date Baljeet Doran MD [address] [address] PCP - General 11/24/16 documented as of this encounter
--- OUTSIDE RECORDS SUMMARY | 2024-07-20 19:39 | XMS_ITS | Encounter Summary ---
Author Organization [facility] Address [facility]6 [facility] [place] [address] [place] [address] Care Team Providers Care Slps Name Role Phone Baljeet Doran MD Primary [...] on filedocumented in this encounter Care Teams Slps Relationship Specialty Start Date End Date Baljeet Doran MD [address] [place] [address] PCP - General 11/24/16 documented as of this encounter
--- OUTSIDE RECORDS SUMMARY | 2024-07-20 19:39 | XMS_ITS | Encounter Summary ---
Author Organization [facility] Address [address] [place] [address]. [place] [address] [place] [address] Care Team Providers Care Information Systems Security Specialist Name Role Phone Baljeet Doran MD [...] filedocumented in this encounter Care Teams Information Systems Security Specialist Relationship Specialty Start Date End Date Baljeet Doran MD [address] [phone] PCP - General 11/24/16 documented as of this encounter
--- OUTSIDE RECORDS SUMMARY | 2024-07-20 19:39 | XMS_ITS | Encounter Summary ---
Author Organization [facility] Address [facility] [place] [address] [place] [address] Care Team Providers Care Chemist Assistant Name Role Phone Baljeet Doran MD Primary [...] on filedocumented in this encounter Care Teams Chemist Assistant Relationship Specialty Start Date End Date Baljeet Doran MD [address] [facility] [address] [place], [place] [address] PCP - General 11/24/16 documented as of this encounter
--- OUTSIDE RECORDS SUMMARY | 2024-07-20 19:39 | XMS_ITS | Encounter Summary ---
Author Organization [facility] Address Formerly [facility]6 [facility] [place] [address] [place] [address] Care Team Providers Care Geochemical Laboratory Technician Name Role Phone Baljeet Doran MD Primary Care Provider Reason for Visit * Reason Comments Skin Problem Encounter Details Date Type Department Care Team (Late st Contact Info) Description 11/18/2019 4:18 PM CDT - 11/18/2019 4:[address] [facility] Emergency Room [place], [place] [id number] Lisa Maynard PA-C [address] [place] [address] Skin Problem Discharge Disposition: Home or Self [...] * Cellulitis (Skin Infection) Discharge Instructions, Adult (Jamaican) * Skin Abscess (Jamaican) documented in this encounter Medications at Time [...] 20 capsule, Refills: 0 Class: Print Pharmacy: [address] [facility] (Ph #: [phone]) Follow-Up: No follow-up provider specified. Disposition: Discharge [...] site documented in this encounter Care Teams Geochemical Laboratory Technician Relationship Specialty Start Date End Date Baljeet Doran MD [address] [phone] PCP - General 11/24/16 documented as of this encounter
--- OUTSIDE RECORDS SUMMARY | 2024-07-20 19:39 | XMS_ITS | Encounter Summary ---
Author Organization [facility] Address [facility]6 [facility] [place] [address] [place] [address] Care Team Providers Care Life Specialist Name Role Phone Baljeet Doran MD Primary Care Provider Reason for Visit * Reason Comments Drug Problem requesting medicatio n to withdraw. drinks 1/5 liquor daily Fall injury to right calf Encounter Details Date Type Department Care Team (Late st Contact Info) Description 01/28/2020 11:00 AM CDT Office Visit [facility] Family Medicine - [place] [address] [facility], [address] [place] [address] Baljeet Doran MD [address] [place], [place] [phone] Drug Problem (requesting medication to withdraw. drinks [...] 01/16 # [address] Tinajero at [facility] likely a psychiatrist. He states he uses [...] providers and patients using the following websites: https://www.[employer].Swapsee/home/Covid-19/HCP/[facility]/fact- sheet.html https://www.[employer].Swapsee/home/Covid-19/Patients/ Quest[facility]/fact-sheet.html This test has been authoriz ed by the FDA under an Emergency Use Authorization (EUA) for use by authorized laboratories. Due to the current public health emergency, [facility] is receiving a high volume of samples [...] about COVID-19 can be found at the [facility] website: www.[employer].Swapsee/Covid19. Test performed at [facility] [address] [place] [phone] Director: SIVA FRANCIS DO,MPH Review of Systems [...] behavior documented in this encounter Care Teams Life Specialist Relationship Specialty Start Date End Date Baljeet Doran MD [address] [address] PCP - General 11/24/16 documented as of this encounter
--- OUTSIDE RECORDS SUMMARY | 2024-07-20 19:39 | XMS_ITS | Encounter Summary ---
Author Organization [facility] Address [address] [place] [address]. [place] [address] [place] [address] Care Team Providers Care Web Editor Name Role Phone Baljeet Doran MD Primary [...] on filedocumented in this encounter Care Teams Web Editor Relationship Specialty Start Date End Date Baljeet Doran MD [address], [place] [phone] PCP - General 11/24/16 documented as of this encounter
--- OUTSIDE RECORDS SUMMARY | 2024-07-20 19:39 | XMS_ITS | Encounter Summary ---
Author Organization [facility] Address Critical access hospital6 [facility] [place] [address] [place] [address] Care Team Providers Care Cleaner Name Role Phone Baljeet Doran MD Primary Care Provider Reason for Visit * Reason Comments Knee Pain R knee pain * Consultation (Urgent) - Closed Specialty Diagnoses / Procedures Referred By Contac t Referred To Contact ORTHOPAEDICS Diagnoses Chronic pain of right knee Baljeet Doran MD [address] [place] [address] Phone: tel: fax: Delonte Agudelo MD Phone: tel: fax: Referral ID Status Reason Start Date Expiration Date V isits Requested Visits Authorized [id number] Closed Specialty Services 08/06/2019 09/05/2020 100 100 Encounter Details Date Type Department Care Team (Latest Contact Info) Description 11/22/2019 10:40 AM CDT Office Visit [facility] Multispecialty Care - [facility] [address] [place] [phone] Madison Murillo MD [address] [place] [address] Knee Pain (R knee pain [...] file Gets together: Not on file Attends scientology service: Not on file Active member of [...] encounter documented in this encounter Care Teams Cleaner Relationship Specialty Start Date End Date Baljeet Doran MD [address] [address] PCP - General 11/24/16 documented as of this encounter
--- OUTSIDE RECORDS SUMMARY | 2024-07-20 19:39 | XMS_ITS | Encounter Summary ---
Author Organization [facility] Address [facility]6 [facility] [place] [address] [place] [address] Care Team Providers Care Retort Unloader Name Role Phone Baljeet Doran MD Primary Care Provider Reason for Visit * Reason Comments Knee Pain R knee/leg pain * Consultation (Urgent) - Closed Specialty Diagnoses / Procedures Referred By Contac t Referred To Contact ORTHOPAEDICS Diagnoses Chronic pain of right knee Baljeet Doran MD [address] [place] [address] Phone: tel: fax: Delonte Agudelo MD Phone: tel: fax: Referral ID Status Reason Start Date Expiration Date V isits Requested Visits Authorized [id number] Closed Specialty Services 08/06/2019 09/05/2020 100 100 Encounter Details Date Type Department Care Team (Latest Contact Info) Description 12/05/2019 3:40 PM CDT Office Visit [facility] Multispecialty Care - [facility] [address] [facility], [address] [place] [phone] [place] Murillo MD [address] [place] [address] Knee Pain (R knee/leg pain) [...] file Gets together: Not on file Attends bahai service: Not on file Active member of [...] foot documented in this encounter Care Teams Retort Unloader Relationship Specialty Start Date End Date Baljeet Doran MD [address] [address] PCP - General 11/24/16 documented as of this encounter
--- OUTSIDE RECORDS SUMMARY | 2024-07-20 19:39 | XMS_ITS | Encounter Summary ---
Author Organization [facility] Address [facility]6 [facility] [place] [address] [place] [address] Care Team Providers Care Delivery Representative Name Role Phone Baljeet Doran MD Primary Care Provider Reason for Visit * Auth/Cert Specialty Diagnoses / Procedures Referred By Contac t Referred To Contact Diagnoses RIGHT KNEE MEDIAL MENSICUS TEAR [id number] Procedures RIGHT KNEE ARTHROSCOPIC PARTIAL MEDIAL MENISECTOMY Referral ID Status Reason Start Date Expiration Date Visits Re quested Visits Authorized [id number] 1 1 Encounter Details Date Type Department Care Team (Late st Contact Info) Description 12/31/2019 1:02 PM CDT Anesthesia Event [facility] [place] [address] Tangela Pope MD [place], Samantha Rae, JOHN [address] [place] [address] Anesthesia Record Procedure Summary Procedure Name Responsible Anesthesiologist Anesthesia Start Time Anesthesia Stop Time RIGHT KNEE ARTHROSCOPIC PARTIAL MEDIAL MENISECTOMY (Right: Knee) Tangela Pope MD 12/31/19 1302 12/31/19 1458 Events Date Time Event Comment 12/31/2019 1205 1205 AN Anesthesia Prepped 1208 AN DIGITAL SOLUTIONS ARCHITECT Prepped 1302 An Start Patient ID and [...] Andi Kiser RN 12/31/19 1738 by Phyllis Jamie RN Surgical/Incision 12/31/19; 133; Surgical Wound; Knee; [...] IVPB 2 g, Intravenous, at 200 mL/hr, scallop dredger to O.R., 1 dose, First dose on [...] mg documented in this encounter Care Teams Delivery Representative Relationship Specialty Start Date End Date Baljeet Doran MD [address] [address] PCP - General 11/24/16 documented as of this encounter
--- OUTSIDE RECORDS SUMMARY | 2024-07-20 19:39 | XMS_ITS | Patient Health Summary ---
Author Organization [facility] [employer] Address [address] [place] [address] Care Team Providers Care Offline Editor Name Role Phone Unavailable Primary Care Provider Unavailabl e Note from [facility] [employer] [facility],non-owned Affiliates and Associated Physician Practices is amultiple site organization consisting of ambulatory clinics and hospital sitesin [place], [place], [place] and [place]. This disclosure is being madepursuant to the Care Everywhere program and may not contain all information available regarding this patient. Last updated 18.[facility] [employer] Allergies No known active allergies Medications * [...] Comments Blood Pressure 140/70 07/13/2009 5:46 PM CIVIL ENGINEERING PROJECT MANAGER Pulse 98 07/13/2009 5:46 PM CIVIL ENGINEERING PROJECT MANAGER Temperature 36.5 ??C (97.7 ??F) 07/13/2009 3:45 PM CS T Respiratory Rate 18 07/13/2009 3:45 PM CIVIL ENGINEERING PROJECT MANAGER Oxygen Saturation 100% 07/13/2009 5:46 PM CIVIL ENGINEERING PROJECT MANAGER Inhaled Oxygen Concentration - - Weight 88.5 kg (195 lb) 07/13/2009 3:45 PM CIVIL ENGINEERING PROJECT MANAGER Height 175.3 cm (5' 9 ) 07/13/2009 3:45 PM CIVIL ENGINEERING PROJECT MANAGER Body Mass Index 28.8 07/13/2009 3:45 PM CIVIL ENGINEERING PROJECT MANAGER Procedures * LIPASE BLOOD(Performed 07/13/2009) Performed for Drug Withdrawal ([facility]) * COMPREHENSIVE METABOLIC PANEL(Performed 07/13/2009) Performed for Drug Withdrawal ([facility]) * CBC W AUTO DIFFERENTIAL(Performed 07/13/2009) Performed for Drug Withdrawal ([facility]) * AMYLASE BLOOD(Performed 07/13/2009) Performed for Drug Withdrawal ([facility]) * URINALYSIS REFLEX MICROSCOPIC REFLEX CULTURE(Performed 07/13/2009) Performed for Drug Withdrawal ([facility]) * URINE DRUG SCREEN IMMUNOASSAY(Performed 07/13/2009) Performed for Drug Withdrawal ([facility]) Results * (ABNORMAL) CBC W AUTO DIFFERENTIAL (07/13/2009 4:30 PM CIVIL ENGINEERING PROJECT MANAGER) WBC 13.6(H) 4.0 - 11.0 K/CUMM [facility] [...] LABORATORY Eosinophils Absolute 0.0 0.0 - 0.4 [facility] Basophils Absolute 0.2(H) 0.0 - 0.1 [facility] Comment Slide scanned for immature granulocytes . [facility] BLOOD SPECIMEN / Unknown 07/13/2009 4:30 PM CIVIL ENGINEERING PROJECT MANAGER 07/13/2009 5:03 PM CIVIL ENGINEERING PROJECT MANAGER See Vinson MD LAB - HEMATOLOGY ORD ERABLES [facility] [address] [place] [address] * (ABNORMAL) COMPREHENSIVE METABOLIC PANEL (07/13/2009 4:30 PM CIVIL ENGINEERING PROJECT MANAGER) Glucose 118.(H) 75 - 110 mg/dL [facility] BUN 10. 9 - 21 mg/dL [facility] Creatinine .85 0.66 - 1.25 mg/dL [facility] BUN/Creatinine Ratio 11.6 [facility] Sodium 144. 137 - 145 mmol/L [facility] Potassium 3.9 3.6 - 5.0 mmol/L [facility] Chloride 104. 98 - 107 mmol/L [facility] CO2 26. 22 - 31 mmol/L [facility] Anion Gap 14. [facility] Calcium 10.2 8.4 - 11.5 mg/dL [facility] Alkaline Phosphatase 83. 38 - 126 U/L [facility] ALT 41. 7 - 56 U/L [facility] AST 23. 5 - 40 U/L [facility] Bilirubin Total .7 0.2 - 1.3 mg/dL [facility] Protein Total 8.7(H) 6.3 - 8.2 gm/dL [facility] Albumin 5.0 3.9 - 5.0 gm/dL [facility] eGFR by MDRD >60 SEE BELOW ml/min/1.7 3 m2 [facility] Comment: >60 Normal Chronic Disease <60 Renal Failure <15 BLOOD SPECIMEN / Unknown 07/13/2009 4:30 PM CIVIL ENGINEERING PROJECT MANAGER 07/13/2009 5:03 PM CIVIL ENGINEERING PROJECT MANAGER See Vinson MD LAB - CHEMISTRY TED RAMOS Performing Organization Address [facility] Co de Phone Number [facility] [address] [place] [phone] * LIPASE BLOOD (07/13/2009 4:30 PM CIVIL ENGINEERING PROJECT MANAGER) Lipase 55. 23 - 208 U/L [facility] BLOOD SPECIMEN / Unknown 07/13/2009 4:30 PM CIVIL ENGINEERING PROJECT MANAGER 07/13/2009 5:03 PM CIVIL ENGINEERING PROJECT MANAGER See Vinson MD LAB - CHEMISTRY TED RAMOS Performing Organization Address [facility] Co de Phone Number [facility] [address] [place] [address] * AMYLASE BLOOD (07/13/2009 4:30 PM CIVIL ENGINEERING PROJECT MANAGER) Amylase 36. 30 - 110 U/L [facility] BLOOD SPECIMEN / Unknown 07/13/2009 4:30 PM CIVIL ENGINEERING PROJECT MANAGER 07/13/2009 5:03 PM CIVIL ENGINEERING PROJECT MANAGER See Vinson MD LAB - CHEMISTRY TED RAMOS Performing Organization Address [facility] Co de Phone Number [facility] [address] [place] [address] * URINALYSIS ROUTINE W/REFLEX TO CULTURE (07/13/2009 4:15 PM CIVIL ENGINEERING PROJECT MANAGER) Source CleanCatch [facility] Color UA Yellow [facility] Character UA Cloudy [facility] Specific [place] UA 1.025 1.002 - 1.030 [facility] [...] Urobilinogen UA 0.2 0.1 - 1.0 E.U./dl [facility] WBC UA 0-1 0 - 1 /HPF [facility] RBC UA 0-1 0 - 1 /HPF [facility] Epithelial Cell UA 0-1 0 - 1 /HPF [facility] Crystals UA 4+ Amorphous /LPF [facility] Culture Urine No culture to be done per protocol. [facility] URINE SPECIMEN OBTAINED BY CLEAN CATCH PROCEDURE / Unknown 07/13/2009 4:15 PM CIVIL ENGINEERING PROJECT MANAGER 07/13/2009 5:02 PM CIVIL ENGINEERING PROJECT MANAGER See Vinson MD LAB - URINALYSIS ORD ERABLES [facility] [address] [place] [address] * DRUG SCREEN TOX URINE PANEL (07/13/2009 4:15 PM CIVIL ENGINEERING PROJECT MANAGER) Amphetamines Screen Urine Not Detected 1000 ng/mL Cutoff ng/mL [facility] Barbiturates Screen Urine Not Detected 300 ng/mL Cutoff ng/mL [facility] Benzodiazepines Screen Urine Not Detected 300 ng/mL Cutoff ng/mL [facility] Cannabinoids Screen Urine Not Detected 20 ng/mL Cutoff ng/mL [facility] Cocaine Screen Urine Not Detected 300 ng/mL Cutoff ng/mL [facility] Methadone Screen Urine Not Detected 300 ng/mL Cutoff ng/mL [facility] Methaqualone Screen Urine Not Detected 300 ng/mL Cutoff ng/mL [facility] Opiate Screen Urine Presumptive Positive 300 ng/mL Cutoff ng/mL [facility] Phencyclidine Screen Urine Not Detected 25 ng/mL Cutoff ng/mL [facility] Propoxyphene Screen Urine Not Detected 300 ng/mL Cutoff ng/mL [facility] Oxycodone Screen Urine Not Detected 100 ng/mL Cutoff ng/mL [facility] Ecstasy Screen Urine Not Detected 500 ng/mL Cutoff ng/mL [facility] Creatinine Urine Tox 481.1 mg/dL [facility] GC/MS Screen Urine Negative [facility] Comment GC/MS Screen [facility] Comment: ? The GC/MS [...] comp, police investigations, occupational issues, child custody. [facility] URINE / Unknown 07/13/2009 4 :15 PM CIVIL ENGINEERING PROJECT MANAGER 07/13/2009 5:03 PM CIVIL ENGINEERING PROJECT MANAGER See Vinson MD LAB - URINE CHEMISTR Y ORDERABLES [facility] [address] [place] [address]
--- OUTSIDE RECORDS SUMMARY | 2024-07-20 19:39 | XMS_ITS | Encounter Summary ---
Author Organization [facility] Address [facility]6 [facility] [place] [address] [place] [address] Care Team Providers Care Morning Show Newscast Producer Name Role Phone Baljeet Doran MD Primary [...] on filedocumented in this encounter Care Teams Morning Show Newscast Producer Relationship Specialty Start Date End Date Baljeet Doran MD [address] [facility] [address] [place] [address] PCP - General 11/24/16 documented as of this encounter
--- OUTSIDE RECORDS SUMMARY | 2024-07-20 19:39 | XMS_ITS | Encounter Summary ---
Author Organization [facility] Address [facility]6 [facility] [place] [address] [place] [address] Care Team Providers Care Manager Clinic Name Role Phone Baljeet Doran MD Primary [...] filedocumented in this encounter Care Teams Manager Clinic Relationship Specialty Start Date End Date Baljeet Doran MD [address] [place] [address] PCP - General 11/24/16 documented as of this encounter
--- OUTSIDE RECORDS SUMMARY | 2024-07-20 19:39 | XMS_ITS | Encounter Summary ---
Author Organization [facility] Address [facility]6 [facility] [place] [address] [place] [address] Care Team Providers Care Corporate Travel Expert Name Role Phone Baljeet Doran MD Primary [...] on filedocumented in this encounter Care Teams Corporate Travel Expert Relationship Specialty Start Date End Date Baljeet Doran MD [address] [facility] [address] [place] [address] PCP - General 11/24/16 documented as of this encounter
--- OUTSIDE RECORDS SUMMARY | 2024-07-20 19:39 | XMS_ITS | Encounter Summary ---
Author Organization [facility] Address Critical access hospital6 [facility] [place] [address] [place] [address] Care Team Providers Care Temple Meat Cutter Name Role Phone Baljeet Doran MD Primary Care Provider Reason for Visit * Reason Onset Date Comments Follow Up Call 01/14/2020 Encounter Details Date Type Department Care Team (Late st Contact Info) Description 01/14/2020 Telephone [facility] Group Multispecialty Care - [facility] [address] [facility], [address] [place] [address] Delonte Agudelo MD [address] [place] [phone] Follow Up Call Social History Tobacco Use [...] - 01/14/2020 10:40 AM CDT Patient will pick out hand tomorrow * Patricia Can - 01/14/2020 10:26 AM CDT Pt [...] an MRI on November 01, 2019 at [facility]. He has now found out that [facility] has denied coverage for the MRI. [facility] told the patient that they did not get the pre auth for the MRI and that's why it was denied. Patient wants to know why the pre auth wasn't obtained. Please follow up with patient. documented in this encounter Plan of Treatment Not on file documented as of this encounter Visit Diagnoses Not on filedocumented in this encounter Care Teams Temple Meat Cutter Relationship Specialty Start Date End Date Baljeet Doran MD [address] [place] [address] PCP - General 11/24/16 documented as of this encounter
--- OUTSIDE RECORDS SUMMARY | 2024-07-20 19:39 | XMS_ITS | Encounter Summary ---
Author Organization [facility] Address [facility]6 [facility] [place] [address] [place] [address] Care Team Providers Care Marketing Summer Intern Name Role Phone Baljeet Doran MD Primary Care Provider Reason for Visit * Reason Onset Date Comments Information 01/27/2020 Encounter Details Date Type Department Care Team (Late st Contact Info) Description 01/27/2020 Telephone [facility] Family Medicine - [place] [address] [facility] [place] [address] Baljeet Doran MD [address] [place] [address] [id number] Information Social History Tobacco Use Types Packs/Day [...] No Are you a healthcare worker or foundation digger? No HEALTHCARE WORKERS or patients who complain of a sore throat with fever will still call the TRIAGE LINE ([phone] or [phone]). If pt has c/o URI, forward call to agricultural technical officer or team MAs to determine if virtual visit is appropriate. documented in this encounter Plan of Treatment Not on file documented as of this encounter Visit Diagnoses Not on filedocumented in this encounter Care Teams Marketing Summer Intern Relationship Specialty Start Date End Date Baljeet Doran MD [address] [address] PCP - General 11/24/16 documented as of this encounter
--- OUTSIDE RECORDS SUMMARY | 2024-07-20 19:39 | XMS_ITS | Encounter Summary ---
Author Organization [facility] Address [facility]6 [facility] [place] [address] [place] [address] Care Team Providers Care Locks Tender Name Role Phone Baljeet Doran MD Primary Care Provider Reason for Referral * Imaging (Emergency) - Closed Specialty Diagnoses / Procedures Referred By Keny kunz Referred To Contact RADIOLOGY Procedures CTA CHEST Una Chavez FNP [address] [address] Phone: tel: fax: Referral ID Status Reason Start Date Expiration Date Visits Re quested Visits Authorized [id number] Closed 11/04/2020 12/04/2021 1 1 Reason for Visit * Reason Comments Shortness Of Breath Encounter Details Date Type Department Care Team (Late st Contact Info) Description 11/04/2020 12:05 PM CDT - 11/04/2020 5:01 PM CDT Emergency [facility] [place] [address] Una Chavez FNP [address] [phone] Shortness Of Breath Discharge Disposition: Home or [...] Care Everywhere. * Shortness of Breath (Dyspnea) (Bhutanese) documented in this encounter Medications at Time [...] ECG [address] Sherri Lozada [address] [place] [address] Test Date: 2020-11-04 Pat Name: GIOVANA LEBRON Department: Room: 4 Gender: Male Survey Data Technician: : 1980 Requested By: UNA CHAVEZ Order Number: [id number] Reading MD: Cristobal Crump Measurements Intervals [place] Rate: 128 P: 80 AL: 169 QRS: 72 QRSD: 98 T: 71 QT: 282 QTc: 413 Interpretive Statements SINUS TACHYCARDIA INCOMPLETE RIGHT BUNDLE BRANCH BLOCK ABNORMAL RHYTHM ECG Compared to ECG 11/28/2012 15:26:22 Incomplete right bundle-branch block now present Other ischemic changes, not STEMI Una Chavez NP CRITICAL ALERT ISSUED ON 11-04-2020 12:30:00 ECG 12 lead Narrative [address] Test Date: 2020-11-04 Pat Name: GIOVANA LEBRON Department: Room: 404A Gender: Male Survey Data Technician: OSCAR : 1980 Requested By: UNA CHAVEZ Order Number: [id number] Reading MD: Cristobal Crump Measurements Intervals [place] Rate: 104 P: 32 AL: 161 QRS: [...] STUDIES: CTA CHEST Final Result by User, [email or web address] (11/04 8660) EXAMINATION: CTA CHEST WITH CONTRAST, PULMONARY EMBOLISM [...] XR CHEST PORTABLE Final Result by User, [email or web address] (11/04 7837) PROCEDURE: XR CHEST PORTABLE. 11/04/2020 12:30 PM. [...] 80 mL (80 mLs Intravenous Given 11/04/20 1139) Discharge Medication List as of 11/04/2020 4:56 [...] I dictated portions of this note using [employer] speech recognition software. Occasional wrong word or sound-alike substitutions may have occurred due to the inherent limitations of voice recognition software. JOHN HOWELL 11/07/2020 JOHN Howell 11/07/20 1054 Cosigned by Vindo Kirk MD at 11/12/2020 7:12 AM CDT [...] PM CDT) 11/04/2020 4:45 PM CDT Narrative [facility] ([facility] RAD - 11/05/2020 12:29 AM CDT ?[facility]cal[facility]il Lozada ? [address] [place] ? Test Date: ?2020-11-04 Pat Name: ? GIOVANA LEBRON ? Department: ? Room: ? 404A Gender: ? Male ? Survey Data Technician: ?? LP : ?1980 ? Requested By: UNA CHAVEZ Order Number: [id number] ? Reading MD: ?? Cristobal Crump ? Measurements Intervals ?[place] ? Rate: ? 104 ?P: ?32 AL: [...] Cristobal Crump MD - 11/05/[address] Test Date: 2020-11-04 Pat Name: GIOVANA LEBRON [facility]: Male Survey Data Technician: OSCAR : 1980 Requested By: UNA CHAVEZ Order Number: [id number] Reading MD: Cristobal Crump Measurements Intervals [place] Rate: 104 P: 32 AL: 161 QRS: [...] ISSUED ON 11-04-2020 16:55:37 us Una Chavez GEOGRAPHY DEPARTMENT CHAIR ECG ORDERABLES Final Resul t [facility] RAD * CTA CHEST (11/04/2020 3:39 PM [...] Goff MD, 11/04/2020 3:46 PM Una Chavez GEOGRAPHY DEPARTMENT CHAIR CT Final Resul t * XR CHEST [...] Hernandes MD, 11/04/2020 2:03 PM Una Chavez [facility] Final Resul t * TROPONIN, QUANT (11/04/2020 12:43 PM CDT) TROPONIN I <0.015 <0.045 ng/mL. 11/04/2020 1:24 PM CDT [facility] Comment: HIGH DOSES OF BIOTIN MAY INTERFERE WITH THIS TEST RESULT. CORRELATION TO CLINICAL HISTORY AND PRESENTATION RECOMMENDED. 11/04/2020 12:4 3 PM CDT Una Chavez [facility] Final Resul t [facility] [address] [place] [address], [place] [phone] * (ABNORMAL) COMPREHENSIVE METABOLIC PANEL (11/04/2020 12:43 PM CDT) [facility] GLUCOSE 114(H) 70 - 99 MG/DL 11/04/2020 1:24 PM CDT [facility] BUN 17 7 - 18 MG/DL 11/04/2020 1:24 PM CDT [facility] CREATININE S/P/B 1.02 0.7 - 1.3 MG/DL 11/04/2020 1:24 PM CDT [facility] SODIUM S/P/B 135(L) 136 - 145 MMOL/L 11/04/2020 1:24 PM CDT [facility] POTASSIUM S/P/B 4.0 3.5 - 5.1 MMOL/L 11/04/2020 1:24 PM CDT [facility] CHLORIDE S/P/B 98(L) 100 - 108 MMOL/L 11/04/2020 1:24 PM CDT [facility] CO2 32.1(H) 21 - 32 MMOL/L 11/04/2020 1:24 PM CDT [facility] CALCIUM S/P/B 9.8 8.5 - 10.1 MG/DL 11/04/2020 1:24 PM CDT [facility] BILIRUBIN TOTAL S/P/B 0.9 0.2 - 1.2 MG/DL 11/04/2020 1:24 PM CDT [facility] Comment: THIS ASSAY IS NOT RECOMMENDED FOR PATIENTS UNDERGOING TREATMENT WITH ELTROMBOPAG DUE TO THE POTENTIAL FOR FALSELY ELEVATED RESULTS. TOTAL PROTEIN S/P/B 8.8(H) 6.4 - 8.2 G/DL 11/04/2020 1:24 PM CDT [facility] ALBUMIN S/P/B 4.5 3.4 - 5.0 G/DL 11/04/2020 1:24 PM CDT [facility] AST 19 15 - 37 U/L 11/04/2020 1:24 PM CDT [facility] ALT 35 16 - 60 U/L 11/04/2020 1:24 PM CDT [facility] ALKALINE PHOSPHATASE S/P/B 111 50 - 136 U/L 11/04/2020 1:24 PM CDT [facility] ANION GAP 4.9(L) 5 - 15 MMOL/L 11/04/2020 1:24 PM CDT [facility] BUN CREATININE RATIO 16.7 6 - 26 11/04/2020 1:24 PM CDT [facility] A/G RATIO 1.0 1.0 - 2.0 RATIO 11/04/2020 1:24 PM CDT [facility] EGFR NON-AFR. AMER. >90 >90 ML/MIN/1.7 3 M2 11/04/2020 1:24 PM CDT [facility] EGFR AFR. AMER. >90 >90 ML/MIN/1.7 3 M2 11/04/2020 1:24 PM CDT [facility] Comment: NOTE: eGFR is not calculated for patients <18 years of age. This is an estimated GFR (CKD EPI) and should not be used for calculating drug doses. 11/04/2020 12:4 3 PM CDT [facility] Final Resul t [facility] [address] [place] [address], * (ABNORMAL) D-DIMER, QUANTITATIVE (11/04/2020 12:43 PM CDT) [facility] D-DIMER 1,753(HH) 0 - 500 ng{FEU}/mL 11/04/2020 1:31 PM CDT [facility] Comment: D-Dimer values less than [...] called 11/04/2020 01:31 PM to EMERGENCY ROOM ([id number]/MARCELLUS DANIELS) by [id number]. 11/04/2020 12:4 3 PM CDT Una Chavez GEOGRAPHY DEPARTMENT CHAIR LABORATORY Final Resul t [facility] [address] [place] [address], * (ABNORMAL) CBC W/DIFF AUTOMATED (11/04/2020 12:43 PM CDT) [facility] WBC 10.5 4.5 - 11.0 x10'3/uL 11/04/2020 12:59 PM CDT [facility] RBC 5.71 4.70 - 6.10 x10'6/uL 11/04/2020 12:59 PM CDT [facility] HGB 16.3 14.0 - 18.0 G/DL 11/04/2020 12:59 PM CDT [facility] HCT 48.6 43.0 - 54.0 % 11/04/2020 12:59 PM CDT [facility] MCV 85.1 80.0 - 94.0 FL 11/04/2020 12:59 PM CDT [facility] MCH 28.5 27.0 - 31.0 PG 11/04/2020 12:59 PM CDT [facility] MCHC 33.5 32.0 - 36.0 G/DL 11/04/2020 12:59 PM CDT [facility] RDW 12.4 11.5 - 14.5 % 11/04/2020 12:59 PM CDT [facility] PLT 476(H) 130 - 400 x10'3/uL 11/04/2020 12:59 PM CDT [facility] MPV 8.8(L) 9.3 - 12.2 FL 11/04/2020 12:59 PM CDT [facility] DIFFERENTIAL TYPE AUTOMATED DIFFERENTIAL 11/04/2020 12:59 PM CDT [facility] NEUTROPHILS % 81.1 % 11/04/2020 12:59 PM CDT [facility] LYMPHOCYTES % 12.6 % 11/04/2020 12:59 PM CDT [facility] MONOCYTES % 5.1 % 11/04/2020 12:59 PM CDT [facility] EOSINOPHILS 0.2 % 11/04/2020 12:59 PM CDT [facility] BASOPHILS 0.6 % 11/04/2020 12:59 PM CDT [facility] IMMATURE GRANS % 0.4 % 11/05/19 12:59 PM CDT [facility] ABS. NEUTROPHILS TOTAL 8.55(H) 1.80 - 7.70 x10'3/uL 11/04/2020 12:59 PM CDT [facility] ABS. LYMPHOCYTES 1.33 1.00 - 4.80 x10'3/uL 11/04/2020 12:59 PM CDT [facility] ABS. MONOCYTES 0.54 0.30 - 0.82 x10'3/uL 11/04/2020 12:59 PM CDT [facility] ABS. EOSINOPHILS 0.02(L) 0.04 - 0.54 x10'3/uL 11/04/2020 12:59 PM CDT [facility] ABS. BASOPHILS 0.06 0.01 - 0.08 x10'3/uL 11/04/2020 12:59 PM CDT [facility] ABS. IMMATURE GRANULOCYTES 0.04 0.00 - 0.49 x10'3/uL 11/04/2020 12:59 PM CDT [facility] 11/04/2020 12:4 3 PM CDT Una Chavez GEOGRAPHY DEPARTMENT CHAIR LABORATORY Final Resul t [facility] [address] [place] [address], * ECG 12 lead (11/04/2020 12:27 PM CDT) 11/04/2020 12:2 7 PM CDT Narrative [facility] ([facility] RAD - 11/04/2020 2:21 PM CDT ?[facility] [place] ? [address] ? Test Date: ?2020-11-04 Pat Name: ? GIOVANA LEBRON ? Department: ? Room: ? 4 Gender: ? Male ? Survey Data Technician: ?? RM : ?1980 ? Requested By: UNA CHAVEZ Order Number: [id number] ? Reading MD: ?? Cristobal Crump ? Measurements Intervals ?[place] ? Rate: ? 128 ?P: ?80 AL: [...] Procedure Note Cristobal Crump MD - 11/04/[address] Test Date: 2020-11-04 Pat Name: GIOVANA LEBRON Department: Room: 4 Gender: Male Survey Data Technician: : 1980 Requested By: UNA CHAVEZ Order Number: [id number] Reading MD: Cristobal Crump Measurements Intervals [place] Rate: 128 P: 80 AL: 169 QRS: 72 QRSD: 98 T: 71 QT: 282 QTc: 413 Interpretive Statements SINUS TACHYCARDIA INCOMPLETE RIGHT BUNDLE BRANCH BLOCK ABNORMAL RHYTHM ECG Compared to ECG 11/28/2012 15:26:22 Incomplete right bundle-branch block now present Other ischemic changes, not STEMI Una Chavez NP CRITICAL ALERT ISSUED ON 11-04-2020 12:30:00 us Una Chavez GEOGRAPHY DEPARTMENT CHAIR ECG ORDERABLES Final Resul t [facility] RAD documented in this encounter Visit Diagnoses [...] RTR) documented in this encounter Care Teams Locks Tender Relationship Specialty Start Date End Date Baljeet Doran MD [address] [address] PCP - General 11/24/16 documented as of this encounter
--- OUTSIDE RECORDS SUMMARY | 2024-07-20 19:39 | XMS_ITS | Encounter Summary ---
Author Organization [facility] Address [facility]6 [facility] [address] [place] [address] Care Team Providers Care Early Childhood Assistant Name Role Phone Baljeet Doran MD [...] on filedocumented in this encounter Care Teams Early Childhood Assistant Relationship Specialty Start Date End Date Baljeet Doran MD [address] [place] [address] PCP - General 11/24/16 documented as of this encounter
--- OUTSIDE RECORDS SUMMARY | 2024-07-20 19:40 | XMS_ITS | Encounter Summary ---
Author Organization [facility] Address [facility]6 [facility] [place] [address] [place] [address] Care Team Providers Care Construction Project Administrator Name Role Phone Baljeet Doran MD Primary Care Provider Encounter Details Date Type Department Care Team (Late st Contact Info) Description 11/24/2016 Abstract [facility] Family Medicine - [place] [address], [address] [place] [phone] Baljeet Doran MD [address] [facility] [facility] [place], [place] [phone] Social History Tobacco Use Types Packs/Day Years [...] Body Mass Index 29.56 05/25/2016 8:15 AM MANAGER WIND documented in this encounter Progress Notes * Baljeet Doran MD - 11/24/2016 12:18 PM CDT Message normal X-ray of the back, continue with current medications Verified Results XR T-SPINE 3 VIEW ( Routine ) [id number] 10:38AM Baljeet Doran Test Name Result Flag Reference XR T-SPINE 3 VIEW (Report) GIOVANA LEBRON ADMIT/SERVICE DATE: 11/24/16 ACCT: [id number] DISCHARGE DATE: : 1980 SEX: M ORD SITE: [facility] PT TYPE: REG CLI ORDERING MD: BALJEET DORAN MD STUDY DATE REPORT # ORDER # EXT ORDER ID 11/24/16 [id number] PROC CODE: TSPN3V PROCEDURE DESCRIPTION: XR THORACIC [...] smoker ?? No drug use ?? No protestant beliefs ?? Occasional alcohol use ?? beer on special occasions ?? Occupation ?? [employer] ?? Recreational activities ?? dirt track racing events, baseball games, socializing with family Current Meds 1. No Reported Medications Recorded ANTONIETTA = N; ; Last Updated By: Kamille Willson; 07/05/2016 11:55:50 AM Allergies 1. No Known Drug Allergies Recorded By: Kamille Willson; 05/25/2016 8:22:23 AM Vitals Recorded: [id number] 09:21AM Temperature 97.6 F Heart Rate 72 [...] Hyperlipidemia 1. Lipid Profile; Status:Active; Requested for:22Nov2016; Perform:[facility]; Due:22Dec2016; Last Updated By:Merissa Valladares; 11/22/2016 5:27:30 PM;Ordered; For:Hyperlipidemia; Ordered By:Baljeet Doran; Impaired fasting glucose 2. Basic Metabolic Prof ( BMP ); Status:Active; Requested for:22Nov2016; Perform:[facility]; Due:22Dec2016; Last Updated By:Merissa Valladares; 11/22/2016 [...] 24Nov2016 09:54AM Ordered; For:Overweight; Ordered By:Baljeet Doran; 6. We encourage all of our [...] Upper back pain; ANTONIETTA = N;Sent To: [facility] 361 10. Naproxen 500 MG Oral Tablet; TAKE 1 TABLET EVERY 12 HOURS NEEDED Rx By: Baljeet Doran; Dispense: 14 Days ; #:28 Tablet; Refill: 1; For: Upper back pain; ANTONIETTA = N;[facility] 11. Physical Therapy Referral [...] VIEW ( Routine ); Status:Active; Requested for:24Nov2016; Perform:[facility]; Due:24Dec2016;Ordered; For:Upper back pain; Ordered By:Baljeet [...] Baljeet Doran M.D.; Nov 24 2016 9:54AM MANAGER WIND (Author) documented in this encounter Plan of [...] BASIC METABOLIC PANEL (04/24/2017 11:49 AM CDT) [facility] GLUCOSE 99 70 - 99 mg/dL [facility] [...] LASSITER ? ADMIT/SERVICE DATE: 11/24/16 ?? ACCT: [id number] ?DISCHARGE DATE: ?? : 1980 ??SEX: M ?ORD SITE: [facility] ?? PT TYPE: REG CLI ? ORDERING MD: ALYSON,BALJEET MD ? STUDY DATE ? REPORT # ?ORDER # ? EXT ORDER ID ?? 11/24/16 ? [id number] ? [id number] ?[id number] ? PROC CODE: ? TSPN3V ? PROCEDURE [...] - 05/11/2018 GIOVANA LEBRON ADMIT/SERVICE DATE:11/24/16 ACCT: [id number] DISCHARGE DATE: : 1980 SEX: M [facility] PT TYPE: REG CLI ORDERING MD:BALJEET DORAN MD STUDY DATE REPORT # ORDER # EXT ORDER ID 11/24/16 [id number] PROC CODE: TSPN3V PROCEDURE DESCRIPTION: XR THORACIC [...] on filedocumented in this encounter Care Teams Construction Project Administrator Relationship Specialty Start Date End Date Baljeet Doran MD [address] [place] [address] PCP - General 11/24/16 documented as of this encounter
--- OUTSIDE RECORDS SUMMARY | 2024-07-20 19:40 | XMS_ITS | Encounter Summary ---
Author Organization [facility] Address [facility]6 [facility] [place] [address] [place] [address] Care Team Providers Care Manager Global Name Role Phone Baljeet Doran MD Primary Care Provider Reason for Referral * Consultation (Routine) - Closed Specialty Diagnoses / Procedures Referred By Keny kunz Referred To Contact UROLOGY Diagnoses Testicular cyst Baljeet Doran MD [address] [address] Phone: tel: fax: Jacky Leary MD Phone: tel: fax: Referral ID Status Reason Start Date Expiration Date Visits Re quested Visits Authorized [id number] Closed 08/06/2019 09/05/2020 100 100 ALL METAL STUD WORKER * Consultation (Urgent) - Closed Specialty Diagnoses / Procedures Referred By Contdeni t Referred To Contact ORTHOPAEDICS Diagnoses Chronic pain of right knee Baljeet Doran MD [address] [address] Phone: tel: fax: Delonte Agudelo MD Phone: tel: fax: Referral ID Status Reason Start Date Expiration Date V isits Requested Visits Authorized [id number] Closed Specialty Services 08/06/2019 09/05/2020 100 100 ALL METAL STUD WORKER * Imaging (Urgent) - Closed Specialty Diagnoses / Procedures Referred By Keny kunz Referred To Contact RADIOLOGY Diagnoses Chronic pain of right knee Procedures MRI KNEE RT WO CON Baljeet Doran MD [address] [facility] [address] [place] [address] Phone: tel: fax: Referral ID Status Reason Start Date Expiration Date Visits Re quested Visits Authorized [id number] Closed 08/06/2019 09/04/2019 1 1 ALL METAL STUD WORKER * Imaging (Routine) - Closed Specialty Diagnoses / Procedures Referred By Keny kunz Referred To Contact RADIOLOGY Diagnoses Testicular cyst Procedures US TESTICULAR Baljeet Doran MD [address] [place] [address] [place] [address] Phone: tel: fax: Referral ID Status Reason Start Date Expiration Date Visits Re quested Visits Authorized [id number] Closed 08/06/2019 09/06/2020 1 1 ALL METAL STUD WORKER Reason for Visit * Reason Comments Follow [...] st Contact Info) Description 08/06/2019 10:20 AM DRYWALL METAL STUD WORKER Office Visit [facility] Family Medicine - [address], [address] [place] [address] Baljeet Doran MD [address] [facility] [address] [place] [id number] Follow Up (for almost a year his [...] Comments Blood Pressure 116/70 08/06/2019 10:22 AM DRYWALL METAL STUD WORKER Pulse 79 08/06/2019 10:22 AM DRYWALL METAL STUD WORKER Temperature - - Respiratory Rate 18 08/06/2019 10:22 AM DRYWALL METAL STUD WORKER Oxygen Saturation 97% 08/06/2019 10:22 AM DRYWALL METAL STUD WORKER Inhaled Oxygen Concentration - - Weight 86.2 kg (190 lb) 08/06/2019 10:22 AM DRYWALL METAL STUD WORKER Height 177.8 cm (5' 10 ) 08/06/2019 10:22 AM DRYWALL METAL STUD WORKER Body Mass Index 27.26 08/06/2019 10:22 AM DRYWALL METAL STUD WORKER documented in this encounter Progress Notes * [...] file Gets together: Not on file Attends alevism service: Not on file Active member of [...] or fail to improve. BALJEET DORAN MD ALL METAL STUD WORKER * Baljeet Doran MD - 08/06/2019 10:20 AM CST Will try to get the MRI approved as they just wanted this to prove there was no fracture, will process this Monday ALL METAL STUD WORKER documented in this encounter Plan of Treatment [...] Laterality Modality Knee Radiographic Ree ging Baljeet Doran MD GENERAL IMAGING Edited Result - Final documented in this encounter Visit Diagnoses Diagnosis Mixed hyperlipidemia- Primary Hypertriglyceridemia Pure hyperglyceridemia Impaired fasting glucose Chronic pain of right knee Testicular cyst Other specified disorder of male genital organs documented in this encounter Care Teams Manager Global Relationship Specialty Start Date End Date Baljeet Doran MD [address] [facility] [address] [place] [address] PCP - General 11/24/16 documented as of this encounter
--- OUTSIDE RECORDS SUMMARY | 2024-07-20 19:40 | XMS_ITS | Encounter Summary ---
Author Organization [facility] Address [facility]6 [facility] [place] [address] [place] [address] Care Team Providers Care Teacher Assistant Name Role Phone Baljeet Doran MD [...] Expiration Date Visits Re quested Visits Authorized [id number] Closed 10/25/2019 11/23/2020 1 1 * Imaging (Routine) - Closed Specialty Diagnoses / Procedures Referred By Contac t Referred To Contact RADIOLOGY Diagnoses Chronic pain of right knee Internal derangement of right knee Knee effusion, right Procedures MRI KNEE RT WO CON Madison Murillo MD Phone: tel: fax: Referral ID Status Reason Start Date Expiration Date Visits Re quested Visits Authorized [id number] Closed 10/29/2019 11/27/2019 1 1 Reason for Visit * Reason Comments Knee Pain R knee pain * Consultation (Urgent) - Closed Specialty Diagnoses / Procedures Referred By Contac t Referred To Contact ORTHOPAEDICS Diagnoses Chronic pain of right knee Baljeet Doran MD [address] [place] [address] Phone: tel: fax: Delonte Agudelo MD Phone: tel: fax: Referral ID Status Reason Start Date Expiration Date V isits Requested Visits Authorized [id number] Closed Specialty Services 08/06/2019 09/05/2020 100 100 Encounter Details Date Type Department Care Team (Latest Contact Info) Description 10/25/2019 9:00 AM CDT Office Visit [facility] Medical Group Multispecialty Care - [facility] [address] [facility], [address] [place] [address] Madison Murillo MD [address] [place], [place] [phone] Knee Pain (R knee pain ) Social [...] compartment. Treated conservatively with naproxen medication and Monty wrap. Patient has had intermittentpersistent pain symptoms [...] file Gets together: Not on file Attends mosque service: Not on file Active member of [...] Knee documented in this encounter Care Teams Teacher Assistant Relationship Specialty Start Date End Date Baljeet Doran MD [address] [facility] [address] [place] [address] PCP - General 11/24/16 documented as of this encounter
--- OUTSIDE RECORDS SUMMARY | 2024-07-20 19:40 | XMS_ITS | Encounter Summary ---
Author Organization [facility] Address [facility] [place] [address] [place] [address] Care Team Providers Care Computer Systems Information Director Name Role Phone Baljeet Doran MD Primary Care Provider Encounter Details Date Type Department Care Team (Late st Contact Info) Description 11/24/2016 Abstract [facility] [address] [place] [address] Baljeet Doran MD [address] [facility] [address] [place], [place] [address] Social History Tobacco Use Types Packs/Day Years [...] spine documented in this encounter Care Teams Computer Systems Information Director Relationship Specialty Start Date End Date Baljeet Doran MD [address] [place], [place] [address] PCP - General 11/24/16 documented as of this encounter
--- OUTSIDE RECORDS SUMMARY | 2024-07-20 19:40 | XMS_ITS | Encounter Summary ---
Author Organization [facility] Address [facility] [place] [address] [place] [address] Care Team Providers Care Topographical Drafter Name Role Phone Baljeet Doran MD Primary Care Provider Encounter Details Date Type Department Care Team (Late st Contact Info) Description 04/26/2017 Orders Only [facility] [address] [place], [place] [phone] Baljeet Doran MD [address] [facility] [address] [place], [place] [address] Social History Tobacco Use Types Packs/Day Years [...] hyperlipidemia documented in this encounter Care Teams Topographical Drafter Relationship Specialty Start Date End Date Baljeet Doran MD [address] [place], [place] [address] PCP - General 11/24/16 documented as of this encounter
--- OUTSIDE RECORDS SUMMARY | 2024-07-20 19:40 | XMS_ITS | Encounter Summary ---
Author Organization [facility] Address [facility] [place] [address] [place] [address] Care Team Providers Care Administration Clerk Name Role Phone Baljeet Doran MD Primary Care Provider Encounter Details Date Type Department Care Team (Latest Contact Info) Description 02/09/2017 Abstract [facility] Social History Tobacco Use [...] on filedocumented in this encounter Care Teams Administration Clerk Relationship Specialty Start Date End Date Baljeet Doran MD [address] [place] [address] PCP - General 11/24/16 documented as of this encounter
--- OUTSIDE RECORDS SUMMARY | 2024-07-20 19:40 | XMS_ITS | Encounter Summary ---
Author Organization [facility] Address [facility]6 [facility] [place] [address] [place] [address] Care Team Providers Care Jig And Fixture Repairer Name Role Phone Baljeet Doran MD Primary Care Provider Reason for Visit * Reason Onset Date Comments Results 08/21/2019 Xray and US Encounter Details Date Type Department Care Team (Late st Contact Info) Description 08/21/2019 Telephone [facility] Family Medicine - [place] [address] [facility] [place] [phone] Baljeet Doran MD [address] [place], [place] [phone] Results (Xray and US) Social History Tobacco [...] LMOM for pt to call office back. BUILDER * Baljeet Doran MD - 09/12/2019 4:34 PM CST The X-ray only demonstrates mild arthritis. If not controlled with tylenol or motrin he can have a steroid injection done here or start physical therapy. US demonstrated only a benign cyst with no further workup necessary. BUILDER * Rafaela Garcia - 08/21/2019 2:32 PM CST Patient is calling to get his results from his x-ray and US. He had these done at [facility]. CB# is [phone] BUILDER documented in this encounter Plan of Treatment Not on file documented as of this encounter Visit Diagnoses Not on filedocumented in this encounter Care Teams Jig And Fixture Repairer Relationship Specialty Start Date End Date Baljeet Doran MD [address] [address] PCP - General 11/24/16 documented as of this encounter
--- OUTSIDE RECORDS SUMMARY | 2024-07-20 19:40 | XMS_ITS | Encounter Summary ---
Author Organization [facility] Address [facility], [id number] [place] [address] [place] [address] Care Team Providers Care Motion Study Analyst Name Role Phone Baljeet Doran MD Primary Care Provider Encounter Details Date Type Department Care Team (Late st Contact Info) Description 10/25/2019 Orders Only [facility] Multispecialty Care - [facility] [address] [facility] [place] [address] Tate Thomas MD [address] [place] [address] Social History Tobacco Use Types Packs/Day Years [...] leg documented in this encounter Care Teams Motion Study Analyst Relationship Specialty Start Date End Date Baljeet Doran MD [address] [address] PCP - General 11/24/16 documented as of this encounter
--- OUTSIDE RECORDS SUMMARY | 2024-07-20 19:40 | XMS_ITS | Encounter Summary ---
Author Organization [facility] Address [facility]6 [facility] [place] [address] [place] [address] Care Team Providers Care School Traffic Supervisor Name Role Phone Baljeet Doran MD Primary Care Provider Reason for Visit * Reason Onset Date Comments Request (Information) 08/09/2019 Encounter Details Date Type Department Care Team (Late st Contact Info) Description 08/09/2019 Telephone [facility] Family Medicine - [place] [address] [facility] [facility] [place] [address] Baljeet Doran MD [address] [place] [address] Request (Information) Social History Tobacco [...] 08/09/2019 11:34 AM CST Patients primary insurance [facility] has approved the request for the MRI. [employer] (patients secondary)has denied the request for the [...] was done today 08/09/[address] Doran. [phone] Due to the patient not getting the Xray done. The request was denied. I then notified the patient to give him this information as written above. Raffaele said that he didn't know where to go to get the xray done. I informed him that [facility] take both [place] and [employer]. He said that he will go there today to get the xray done. He would like to also get all of his other imaging done. I notified Juliane Bartlett in the referral center to inform her of this. She will f/uonce pt get the xray done. STYLIST documented in this encounter Plan of Treatment Not on file documented as of this encounter Visit Diagnoses Not on filedocumented in this encounter Care Teams School Traffic Supervisor Relationship Specialty Start Date End Date Baljeet Doran MD [address] [address] PCP - General 11/24/16 documented as of this encounter
--- OUTSIDE RECORDS SUMMARY | 2024-07-20 19:40 | XMS_ITS | Encounter Summary ---
Author Organization [facility] Address [facility]6 [facility] [place] [address] [place] [address] Care Team Providers Care Incinerator Plant General Supervisor Name Role Phone Baljeet Doran MD [...] Expiration Date Visits Re quested Visits Authorized [id number] Closed 10/29/2019 11/27/2019 1 1 Reason for Visit * Imaging (Routine) - Closed Specialty Diagnoses / Procedures Referred By Keny kunz Referred To Contact RADIOLOGY Diagnoses Chronic pain of right knee Internal derangement of right knee Knee effusion, right Procedures MRI KNEE RT WO Tate Moreno MD Phone: tel: fax: Referral ID Status Reason Start Date Expiration Date Visits Re quested Visits Authorized [id number] Closed 10/29/2019 11/27/2019 1 1 Encounter Details Date Type Department Care Team (Latest Contact Info) Description 11/01/2019 4:31 PM CDT - 11/01/2019 11:59 PM CDT Hospital Encounter [facility] MRI [address] [place] [address] Tate Thomas MD [address] [place] [address] Discharge Disposition: Home or Self Care (Routine [...] joint documented in this encounter Care Teams Incinerator Plant General Supervisor Relationship Specialty Start Date End Date Baljeet Doran MD [address] [phone] PCP - General 11/24/16 documented as of this encounter
--- OUTSIDE RECORDS SUMMARY | 2024-07-20 19:40 | XMS_ITS | Encounter Summary ---
Author Organization [facility] Address [facility]6 [facility] [place] [address] [place] [address] Care Team Providers Care House Decorator Name Role Phone Baljeet Doran MD Primary [...] organs documented in this encounter Care Teams House Decorator Relationship Specialty Start Date End Date Baljeet Doran MD [address] [place] [address] PCP - General 11/24/16 documented as of this encounter
--- OUTSIDE RECORDS SUMMARY | 2024-07-20 19:40 | XMS_ITS | Encounter Summary ---
Author Organization [facility] Address [facility]6 [facility] [place] [address] [place] [address] Care Team Providers Care Senior Linux Systems Administrator Name Role Phone Baljeet Doran MD Primary Care Provider Reason for Referral * Imaging (Routine) - Closed Specialty Diagnoses / Procedures Referred By Contac t Referred To Contact RADIOLOGY Diagnoses Testicular cyst Procedures US TESTICULAR W DOPPLER Baljeet Doran MD [address] [address] Phone: tel: fax: [place] [address] Phone: tel: fax: Referral ID Status Reason Start Date Expiration Date Visits Re quested Visits Authorized [id number] Closed 08/06/2019 09/04/[address]ATIVE Reason for Visit * Reason Onset Date Comments Orders 08/06/2019 Testicular US Encounter Details Date Type Department Care Team (Late st Contact Info) Description 08/06/2019 Telephone [facility] Family Medicine - [place] [address] [facility] [place] [phone] Baljeet Doran MD [address] [place] [address] Orders (Testicular US) Social History Tobacco Use Types Packs/Day Years Used Date Smoking Tobacco: Never Smokeless Tobacco: Never Sex and Gender Information Value Date Recorded Sex Assigned at Not on file Legal Sex Male 12:41 AM CDT Gender Identity Not on file Sexual Orientation Not on file documented as of this encounter Progress Notes * Estela Diza RN - 08/06/2019 1:55 PM CST Gaye from [facility] is calling because pt is trying to schedule testicular US. States thatthe order will need to be US Testicular with doppler. Order made and faxed to [phone]. Fax confirmation received and confirmed. Pt states he tried to have US done with [facility] but they told him that they don't accept his insurance so this is why he is going to [facility] to have this done. Pt transferred to scheduling tocancel appt with [facility]. 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
--- OUTSIDE RECORDS SUMMARY | 2024-07-20 19:40 | XMS_ITS | Encounter Summary ---
Author Organization [facility] Address [facility]6 [facility] [place] [address] [place] [address] Care Team Providers Care Prior Authorization Nurse Name Role Phone Baljeet Doran MD Primary Care Provider Encounter Details Date Type Department Care Team (Late st Contact Info) Description 04/24/2017 Abstract [facility] [place] [address] Baljeet Doran MD [address] [place] [address] Social History Tobacco Use Types [...] 213(H) <200 MG/DL 04/24/2017 7:15 PM CDT [facility] Comment: NOTE: Acetaminophen, N Acetyl p benzoquinone imine (NAPQI), N acetylcysteine (NAC), Metamizole, 4 Aminoantipyrine (4 AAP) and 4 Methylamino antipyrine (4 MAP) at high concentrations can cause falsely low results on Lactate, Uric Acid, Cholesterol, Triglyceride, HDL, and Direct LDL. TRIGLYCERIDES 221(H) <150 MG/DL 04/24/2017 7:15 PM T [facility] HDL 43(L) >59 MG/DL 04/24/2017 7:15 PM [facility] LDL (CALCULATED) 126(H) <100 MG/DL 04/24/2017 7:15 PM [facility] NON HDL CHOLESTEROL 170(H) <130 MG/DL 04/24/2017 7:15 PM [facility] Comment: NOTE: WHEN THE TRIGLYCERIDES ARE >200 mg/dL, NON HDL C IS A SECONDARY TARGET OF THERAPY, WITH A GOAL 30 mg/dL HIGHER THAN THE IDENTIFIED LDL C GOAL. CHOL/HDL RATIO 5.0(H) 0.0 - 4.5 04/24/2017 7:15 PM [facility] VLDL CALCULATION 44 5 - 55 MG/DL 04/24/2017 7:15 PM [facility] LIPID INTERPRETATION 04/24/2017 7:15 PM [facility] Comment: NIH CONCENSUS REPORT RECOMMENDATIONS: [...] Conversion Md [facility] Final R esult [facility] [address] [place] [id number], * BASIC METABOLIC PANEL (04/24/2017 11:49 AM CDT) GLUCOSE 99 70 - 99 mg/dL 04/24/2017 7:15 PM CDT [facility] BUN 14 8 - 23 mg/dL 04/24/2017 7:15 PM CDT [facility] CREATININE S/P/B 1.05 0.70 - 1.20 mg/dL 04/24/2017 7:15 PM CDT [facility] SODIUM S/P/B 139 136 - 145 mmol/L 04/24/2017 7:15 PM CDT [facility] POTASSIUM S/P/B 5.0 3.5 - 5.1 mmol/L 04/24/2017 7:15 PM CDT [facility] CHLORIDE S/P/B 102 98 - 107 mmol/L 04/24/2017 7:15 PM CDT [facility] CO2 28 22 - 29 mmol/L 04/24/2017 7:15 PM CDT [facility] CALCIUM S/P/B 9.4 8.6 - 10.2 mg/dL 04/24/2017 7:15 PM CDT [facility] ANION GAP 14 8 - 20 04/24/2017 7:15 PM CDT [facility] EGFR NON-AFR. AMER. >60 >60 mL/min/1.7 3m'2 04/24/2017 7:15 PM CDT [facility] EGFR AFR. AMER. >60 >60 mL/min/1.7 3m'2 04/24/2017 7:15 PM CDT [facility] Comment: NOTE: eGFR is not calculated for patients <18 years of age. This is an estimated GFR (CKD EPI) and should not be used for calculating drug doses. 04/24/2017 11:4 9 AM CDT 04/24/2017 12:24 PM CDT us Generic Conversion Md [facility] Final R esult [facility] [place] [place] [address], [place] [phone] documented in this encounter Visit Diagnoses Diagnosis Impaired fasting glucose documented in this encounter Care Teams Prior Authorization Nurse Relationship Specialty Start Date End Date Baljeet Doran MD [address] [id number] PCP - General 11/24/16 documented as of this encounter
--- OUTSIDE RECORDS SUMMARY | 2024-07-20 19:40 | XMS_ITS | Encounter Summary ---
Author Organization [facility] Address [facility] [place] [address] [place] [address] Care Team Providers Care Director Sanitation Bureau Name Role Phone Baljeet Doran MD Primary Care Provider Encounter Details Date Type Department Care Team (Late st Contact Info) Description 05/03/2017 Abstract [facility] Multispecialty Care - [facility] [address] [facility], [address] [place] [address] Winsome Nathan, APNP [address] [address] Social History Tobacco Use Types [...] 6:22 PM To: Josiane Knowles Recipient DirectID: [email or web address] From: Baljeet Doran MD Sender DirectID: Order ID: [id number] Kala Christie 28 Apr 2017 10:02 AM TASK EDITED Left message for the patient to set up IOV. Kala Christie 28 Apr 2017 10:02 AM TASK IN PROGRESS Kala Chirstie 28 Apr 2017 12:39 PM TASK EDITED Patient has IOV on 05/03/17. Kala Christie 03 May 2017 3:36 PM TASK EDITED Patient no showed for his IOV on 05/03/17. 1st no show letter has been mailed to the patient. Signatures Electronically signed by : Kala Jones MA; May 26 2017 12:02PM FLORIST'S DECORATOR (Author) documented in this encounter Miscellaneous Notes * Letter - BIBIANA Hager - 05/03/2017 3:36 PM CDT Message Appointment Status: The patient no showed for his/her appointment. Patient Communication: The patient was called regarding the missed appointment. on [phone]. Result: Patient could not be reached. Message left to return call. Left message for the patient to call the office if he wishes to R/S. Signatures Electronically signed by : Kala Christie, ; May 03 2017 3:38PM FLORIST'S DECORATOR (Author) documented in this encounter Plan of Treatment Not on file documented as of this encounter Visit Diagnoses Not on filedocumented in this encounter Care Teams Director Sanitation Bureau Relationship Specialty Start Date End Date Baljeet Doran MD [address] [facility] [address] [place] [address] PCP - General 11/24/16 documented as of this encounter
--- OUTSIDE RECORDS SUMMARY | 2024-07-20 19:40 | XMS_ITS | Encounter Summary ---
Author Organization [facility] Address [facility]6 [facility] [place] [address] [place] [address] Care Team Providers Care Oracle Database Analyst Name Role Phone Baljeet Doran MD Primary Care Provider Reason for Visit * Reason Onset Date Comments Lab Order 10/31/2018 Encounter Details Date Type Department Care Team (Late st Contact Info) Description 10/31/2018 Telephone [facility] Family Medicine - [place] [address] [facility] [place] [phone] Baljeet Doran MD [address] [facility] [address] [address] [place], [place] [phone] Lab Order Social History Tobacco Use Types [...] plasma last Monday and last Monday at [facility] plasma in [place]. He was told by them that he [...] findings documented in this encounter Care Teams Oracle Database Analyst Relationship Specialty Start Date End Date Baljeet Doran MD [address] [address] PCP - General 11/24/16 documented as of this encounter
--- OUTSIDE RECORDS SUMMARY | 2024-07-20 19:40 | XMS_ITS | Encounter Summary ---
Author Organization [facility] Address [facility]6 [facility] [place] [address] [place] [address] Care Team Providers Care Microbiology Analyst Name Role Phone Baljeet Doran MD Primary Care Provider Reason for Visit * Reason Onset Date Comments Returned Call 11/04/2019 Encounter Details Date Type Department Care Team (Late st Contact Info) Description 11/04/2019 Telephone [facility] Multispecialty Care - [facility] [address] [facility], [address] [place] [address] Tate Thomas MD [address] [place] [address] Returned Call Social History Tobacco Use [...] on filedocumented in this encounter Care Teams Microbiology Analyst Relationship Specialty Start Date End Date Baljeet Doran MD [address] [place] [address] PCP - General 11/24/16 documented as of this encounter
--- OUTSIDE RECORDS SUMMARY | 2024-07-20 19:40 | XMS_ITS | Encounter Summary ---
Author Organization [facility] Address [facility]6 [facility] [place] [address] [place] [address] Care Team Providers Care Sales Ambassador Name Role Phone Baljeet Doran MD Primary Care Provider Encounter Details Date Type Department Care Team (Latest Contact Info) Description 12/05/2016 Abstract [facility] Social History Tobacco [...] Name: Call Patient with results Assigned To: [facility] Regarding Patient: Raffaele Valenzuela, Status: [...] Amy Phillips, ; Dec 05 2016 2:46PM PULPER TENDER (Author) documented in this encounter Plan of Treatment Not on file documented as of this encounter Visit Diagnoses Not on filedocumented in this encounter Care Teams Sales Ambassador Relationship Specialty Start Date End Date Baljeet Doarn MD [address] [facility] [address] [place] [address] PCP - General 11/24/16 documented as of this encounter
--- OUTSIDE RECORDS SUMMARY | 2024-07-20 19:40 | XMS_ITS | Encounter Summary ---
Author Organization [facility] Address [address] [facility] [place] [address] [place] [address] Care Team Providers Care Wirer Helper Name Role Phone Baljeet Doran MD Primary Care Provider Baljeet Doran MD Primary Care Provider Encounter Details Date Type Department Care Team (Late st Contact Info) Description 07/26/[address] [facility] Physical Therapy [address] [place], [place] [phone] Baljeet Doran MD [address] [address] Social History Tobacco Use Types Packs/Day Years [...] region documented in this encounter Care Teams Wirer Helper Relationship Specialty Start Date End Date Baljeet Doran MD [address] [place], [place] [phone] PCP - General 11/24/16 Baljeet Doran MD [address] [address] PCP - General 07/26/16 11/23/16 documented as of this encounter
--- OUTSIDE RECORDS SUMMARY | 2024-07-20 19:40 | XMS_ITS | Encounter Summary ---
Author Organization [facility] Address [facility]6 [facility] [address] [place] [address] Care Team Providers Care Office Machine Mechanic Name Role Phone Baljeet Doran MD Primary Care Provider Encounter Details Date Type Department Care Team (Latest Contact Info) Description 11/25/2016 Abstract [facility] Social History Tobacco Use [...] Name: Call Patient with results Assigned To: [facility] [place] [facility] Regarding Patient: Raffaele Valenzuela, Status: [...] Kajal Baum R.N.; Nov 25 2016 3:05PM MORTGAGE LENDER (Author) documented in this encounter Plan of Treatment Not on file documented as of this encounter Visit Diagnoses Not on filedocumented in this encounter Care Teams Office Machine Mechanic Relationship Specialty Start Date End Date Baljeet Doran MD [address] [phone] PCP - General 11/24/16 documented as of this encounter
--- OUTSIDE RECORDS SUMMARY | 2024-07-20 19:40 | XMS_ITS | Encounter Summary ---
Author Organization [facility] Address [facility]6 [facility] [place] [address] [place] [address] Care Team Providers Care Fitness And Wellness Manager Name Role Phone Baljeet Doran MD Primary Care Provider Encounter Details Date Type Department Care Team (Late st Contact Info) Description 11/12/2018 Orders Only [facility] Family Medicine - [place] [address] [place] [phone] Alondra Leavitt MA Social History Tobacco Use [...] on filedocumented in this encounter Care Teams Fitness And Wellness Manager Relationship Specialty Start Date End Date Baljeet Doran MD [address] [place] [address] PCP - General 11/24/16 documented as of this encounter
--- OUTSIDE RECORDS SUMMARY | 2024-07-20 19:40 | XMS_ITS | Encounter Summary ---
Author Organization [facility] Address [facility]6 [facility] [place] [address] [place] [address] Care Team Providers Care Meteorology Instructor Name Role Phone Baljeet Doran MD Primary Care Provider Reason for Visit * Reason Comments Sore Throat Pt c/o sore throat s clara Monday. Pt c/o it hurting when he swallows up into his ears Chills Encounter Details Date Type Department Care Team (Late st Contact Info) Description 11/12/2018 1:40 PM CDT Office Visit [facility] Medical Group Family Medicine - [place] [address] [facility], [address] [place] [phone] Miley Hogue Anabelle, [address] [place] [address] Sore Throat (Pt c/o sore throat since [...] SPEC DESCRIPTION THROAT 11/12/2018 6:50 PM CDT [facility] SPECIAL REQUESTS NO SPECIAL REQUEST 11/12/2018 6:50 PM CDT [facility] CULTURE RESULT LIGHT GROWTH OF NORMAL KAPIL PRESENT 11/14/2018 8:59 AM CDT [facility] THROAT SWAB / Unknown 11/12/2018 2:22 PM CDT 11/12/2018 6:52 PM CDT Miley Hogue DO MICROBIOLOGY - GENERAL ORDERA BLES Final Result [facility] [address] [place] [address], [place] [phone] * RAPID STREP A (11/12/2018) RAPID STREP TEST negative NEGATIVE [facility] [place] [place] Internal Control: VALID VALID [facility] [place] [place] STRUCTURE OF ANTERIOR PORTION OF NECK / Unknown 11/12/2018 Miley Hogue DO MICROBIOLOGY - GENERAL ORDERA BLES Final Result [facility] [place] [place] [address] [place] [address], [place] [phone] documented in this encounter Visit Diagnoses Diagnosis Sore throat- Primary Acute pharyngitis documented in this encounter Care Teams Meteorology Instructor Relationship Specialty Start Date End Date Baljeet Doran MD [address] [place] [address] PCP - General 11/24/16 documented as of this encounter
--- OUTSIDE RECORDS SUMMARY | 2024-07-20 19:40 | XMS_ITS | Encounter Summary ---
Author Organization [facility] Address [address] [facility] [place] [address] [place] [address] Care Team Providers Care Supervisor Electronics Testing Name Role Phone Baljeet Doran MD Primary Care Provider Baljeet Doran MD Primary Care Provider Encounter Details Date Type Department Care Team (Latest Contact Info) Description 08/02/2016 Abstract [facility] Medical Group Baljeet Doran MD [address] [place] [address] Social History Tobacco Use Types Packs/Day [...] filedocumented in this encounter Care Teams Supervisor Electronics Testing Relationship Specialty Start Date End Date Baljeet Doran MD [address] [place], [place] [phone] PCP - General 11/24/16 Baljeet Doran MD [address] [place], [place] [phone] PCP - General 07/26/16 11/23/16 documented as of this encounter
--- OUTSIDE RECORDS SUMMARY | 2024-07-20 19:40 | XMS_ITS | Encounter Summary ---
Author Organization [facility] Address [facility]6 [facility] [place] [address] [place] [address] Care Team Providers Care Director Enterprise Systems Name Role Phone Baljeet Doran MD Primary Care Provider Reason for Visit * Reason Onset Date Comments Question 09/30/2019 Encounter Details Date Type Department Care Team (Late st Contact Info) Description 09/30/2019 Telephone [facility] Medical Group Multispecialty Care - [facility] [address] [facility] [place] [address] Tate Thomas MD [address] [place] [address] Question Social History Tobacco Use Types [...] filedocumented in this encounter Care Teams Director Enterprise Systems Relationship Specialty Start Date End Date Baljeet Doran MD [address] [address] PCP - General 11/24/16 documented as of this encounter
--- OUTSIDE RECORDS SUMMARY | 2024-07-20 19:40 | XMS_ITS | Encounter Summary ---
Author Organization [facility] [place] Address [facility]6 [facility] [place] [address] [place] [address] Care Team Providers Care Carcass Splitter Name Role Phone Baljeet Doran MD Primary Care Provider Reason for Visit * Reason Onset Date Comments Wound 11/18/2019 Encounter Details Date Type Department Care Team (Late st Contact Info) Description 11/18/2019 Telephone [facility] Medical Group Multispecialty Care - [facility] [address] [facility], [address] [place] [address] Tate Thomas MD [address] [place] [address] Wound Social History Tobacco Use Types [...] pus as well. Answered all questions. * Eddy Beltran MA - 11/18/2019 8:48 AM CDT [...] on filedocumented in this encounter Care Teams Carcass Splitter Relationship Specialty Start Date End Date Baljeet Doran MD [address] [facility] [address] [place] [address] PCP - General 11/24/16 documented as of this encounter
--- OUTSIDE RECORDS SUMMARY | 2024-07-20 19:40 | XMS_ITS | Encounter Summary ---
Author Organization [facility] Address [facility]6 [facility] [place] [address] [place] [address] Care Team Providers Care Jack Winder Name Role Phone Baljeet Doran MD Primary Care Provider Baljeet Doran MD Primary Care Provider Baljeet Doran MD Primary Care Provider Encounter Details Date Type Department Care Team (Late st Contact Info) Description 07/05/2016 Abstract [facility] Medical Group Family Medicine - [place] [address] [place] [address] Baljeet Doran MD [address] [place], [place] [phone] Social History Tobacco Use Types Packs/Day Years Used Date Smoking Tobacco: Never Assessed Sex and Gender Information Value Date Recorded Sex Assigned at Not on file Legal Sex Male 12:41 AM CDT Gender Identity Not on file Sexual Orientation Not on file documented as of this encounter Last Filed Vital Signs Vital Sign Reading Time Taken Comments Blood Pressure 110/60 07/05/2016 11:52 AM MICA PATCHER Pulse 73 07/05/2016 11:52 AM MICA PATCHER Temperature - - Respiratory Rate - - Oxygen Saturation - - Inhaled Oxygen Concentration - - Weight 92.5 kg (204 lb) 07/05/2016 11:52 AM MICA PATCHER Height - - Body Mass Index 29.27 05/25/2016 8:15 AM MICA PATCHER documented in this encounter Progress Notes * [...] smoker ?? No drug use ?? No yazidism beliefs ?? Occasional alcohol use ?? beer on special occasions ?? 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 Recreational activities ?? dirt track racing events, baseball games, socializing with family Current Meds 1. Naproxen 500 MG Oral Tablet; TAKE 1 TABLET EVERY 12 HOURS NEEDED; Therapy: 25May2016 to (Evaluate:08Jun2016) Requested for: 01Jun2016; Last Rx:25May2016 Ordered 2. No Reported Medications Recorded Allergies 1. No Known Drug Allergies Vitals Recorded: [id number] 11:52AM Temperature 98.2 F Heart Rate 73 [...] LT (Report) NICOLASRAFFAELE ADMIT/SERVICE DATE: 05/26/16 ACCT: [id number] DISCHARGE DATE: : 1980 SEX: M ORD SITE: [facility] OUTPATNT IMAGING PT TYPE: REG CLI ORDERING MD: BALJEET DORAN MD STUDY DATE REPORT # ORDER # EXT ORDER ID 05/26/16 [id number] PROC CODE: [id number] PROCEDURE DESCRIPTION: XR SHOULDER [...] (Report) RAFFAELE LEBRON ADMIT/SERVICE DATE: 05/26/16 ACCT: [id number] DISCHARGE DATE: : 1980 SEX: M ORD SITE: [facility] OUTPATNT IMAGING PT TYPE: REG CLI ORDERING MD: BALJEET DORAN MD STUDY DATE REPORT # ORDER # EXT ORDER ID 05/26/16 [id number] PROC CODE: [id number] PROCEDURE DESCRIPTION: XR CERVICAL [...] please eval & treat, thanks. Katiana in [place]. Status: Need Information - Financial Authorization Requested for: [id number] Ordered; For: Right shoulder pain; Ordered By: [...] Baljeet Doran M.D.; Jul 05 2016 12:07PM MICA PATCHER (Author) documented in this encounter Plan of Treatment Not on file documented as of this encounter Visit Diagnoses Not on filedocumented in this encounter Care Teams Jack Winder Relationship Specialty Start Date End Date Baljeet Doran MD [address] [facility] [address] [place], [place] [address] PCP - General 11/24/16 Baljeet Doran MD [address] [facility] [address] [place], [place] [address] PCP - General 07/26/16 11/23/16 Baljeet Doran MD [address] [facility] [address] [place], [place] [address] PCP - General 06/01/16 07/25/16 documented as of this encounter
--- OUTSIDE RECORDS SUMMARY | 2024-07-20 19:40 | XMS_ITS | Encounter Summary ---
Author Organization [facility] Address [facility] [place] [address] [place] [address] Care Team Providers Care Hydrogenation Operator Name Role Phone Baljeet Doran MD Primary Care Provider Reason for Visit * Reason Onset Date Comments Problem 11/16/2018 Encounter Details Date Type Department Care Team (Late st Contact Info) Description 11/16/2018 Telephone [facility] Medical [facility] Family Medicine - [place] [address] [facility], [address] [place] [address] Baljeet Doran MD [address] [place], [place] [phone] Problem Social History Tobacco Use Types Packs/Day [...] PM CDT I spoke to Raffaele Joe# [phone] he stated that he was doing a [...] she advised me to task it. Pharmacy [facility] [place] [phone] documented in this encounter Plan of Treatment Not on file documented as of this encounter Visit Diagnoses Not on filedocumented in this encounter Care Teams Hydrogenation Operator Relationship Specialty Start Date End Date Baljeet Doran MD [address] [place] [address] PCP - General 11/24/16 documented as of this encounter
--- OUTSIDE RECORDS SUMMARY | 2024-07-20 19:40 | XMS_ITS | Encounter Summary ---
Author Organization [facility] Address [facility] [place] [address] [place] [address] Care Team Providers Care Seam Rubbing Machine Operator Name Role Phone Baljeet Doran [...] on filedocumented in this encounter Care Teams Seam Rubbing Machine Operator Relationship Specialty Start Date End Date Baljeet Doran MD [address] [facility] [address] [place] [address] PCP - General 11/24/16 documented as of this encounter
--- OUTSIDE RECORDS SUMMARY | 2024-07-20 19:40 | XMS_ITS | Encounter Summary ---
Author Organization [facility] Address Critical access hospital6 [facility] [place] [address] [place] [address] Care Team Providers Care Strap Making Machine Operator Name Role Phone Baljeet Doran MD Primary Care Provider Encounter Details Date Type Department Care Team (Latest Contact Info) Description 04/06/2018 Abstract [facility] Medical Group , Oneida Mendiola MD Social [...] documented as of this encounter Care Teams Strap Making Machine Operator Relationship Specialty Start Date End Date Baljeet Doran MD [address] [facility] [address] [place], [place] [phone] PCP - General 11/24/16 documented as of this encounter
--- OUTSIDE RECORDS SUMMARY | 2024-07-20 19:40 | XMS_ITS | Encounter Summary ---
Author Organization [facility] Address [address] [facility] [place] [address] [place] [address] Care Team Providers Care Adhesion Tester Name Role Phone Baljeet Doran MD Primary Care Provider Baljeet Doran MD Primary Care Provider Encounter Details Date Type Department Care Team (Latest Contact Info) Description 08/26/2016 Abstract [facility] Medical Group Baljeet Doran MD [address] [place] [address] Social History Tobacco Use Types Packs/Day [...] on filedocumented in this encounter Care Teams Adhesion Tester Relationship Specialty Start Date End Date Baljeet Doran MD [address] [place], [place] [phone] PCP - General 11/24/16 Baljeet Doran MD [address] [place], [place] [phone] PCP - General 07/26/16 11/23/16 documented as of this encounter
--- OUTSIDE RECORDS SUMMARY | 2024-07-20 19:40 | XMS_ITS | Encounter Summary ---
Author Organization [facility] Address [facility]6 [facility] [address] [place] [address] Care Team Providers Care Coconut Jelly Roller Name Role Phone Baljeet Doran MD Primary Care Provider Reason for Visit * Reason Onset Date Comments Results 09/30/2019 Encounter Details Date Type Department Care Team (Late st Contact Info) Description 09/30/2019 Telephone [facility] Medical Group Family Medicine - [place] [address] [facility], [address] [place] [phone] Baljeet Doran MD [address] [place], [place] [phone] Results Social History Tobacco Use Types Packs/Day [...] on filedocumented in this encounter Care Teams Coconut Jelly Roller Relationship Specialty Start Date End Date Baljeet Doran MD [address] [address] PCP - General 11/24/16 documented as of this encounter
--- OUTSIDE RECORDS SUMMARY | 2024-07-20 19:40 | XMS_ITS | Encounter Summary ---
Author Organization [facility] Address [facility]6 [facility] [place] [address] [place] [address] Care Team Providers Care Library Customer Service Clerk Name Role Phone Baljeet Doran MD Primary Care Provider Encounter Details Date Type Department Care Team (Late st Contact Info) Description 08/19/2019 Orders Only [facility] Medical Group Multispecialty Care - [facility] [address] [facility], [address] [place] [phone] Alondra Adamson MA Social History Tobacco Use [...] on filedocumented in this encounter Care Teams Library Customer Service Clerk Relationship Specialty Start Date End Date Baljeet Doran MD [address] [place] [address] PCP - General 11/24/16 documented as of this encounter
--- OUTSIDE RECORDS SUMMARY | 2024-07-20 19:40 | XMS_ITS | Encounter Summary ---
Author Organization [facility] Address [facility]6 [place] [address] [place] [address] Care Team Providers Care Administrative Specialist Name Role Phone Baljeet Doran MD Primary Care Provider Encounter Details Date Type Department Care Team (Late st Contact Info) Description 04/26/2017 Abstract [facility] Medical Group Family Medicine - [place] [address] [place] [phone] Baljeet Doran MD [address] [place], [place] [phone] Social History Tobacco Use Types Packs/Day Years [...] smoker ?? No drug use ?? No episcopalian beliefs ?? Occasional alcohol use ?? beer on special occasions ?? Occupation ?? [employer] ?? Recreational activities ?? dirt track racing events, baseball games, socializing with family Current Meds 1. Cyclobenzaprine HCl - 10 MG Oral Tablet; TAKE 1 TABLET AT BEDTIME; Therapy: 24Nov2016 to (Evaluate:22Dec2016) Requested for: 24Nov2016; Last Rx:[id number] Ordered Rx By: Baljeet Doran; Dispense: 14 Days ; #:14 Tablet; Refill: 1; For: PMH: Upper back pain; ANTONIETTA= N; Verified Transmission to [facility]; Last Updated By: [facility]; 11/24/2016 9:54:56 AM 2. Naproxen 500 MG Oral Tablet; TAKE 1 TABLET EVERY 12 HOURS NEEDED; Therapy: 24Nov2016 to (Evaluate:22Dec2016) Requested for: 24Nov2016; Last Rx:[id number] Ordered Rx By: Baljeet Doran; Dispense: 14 Days ; #:28 Tablet; Refill: 1; For: PMH: Upper back pain; ANTONIETTA= N; Verified Transmission to [facility]; Last Updated By: [facility]; 04/26/2017 8:54:16 AM Allergies 1. No Known [...] for: 26Apr2017 Ordered; For: Hyperlipidemia; Ordered By: Baljete Doran Performed: Due: 10May2017 ?? Lipid Profile; Status:Active; Requested for:27Jul2017; Perform:[facility]; Due:[id number];Ordered; For:Hyperlipidemia; Ordered By:Baljeet Doran; Impaired fasting glucose ?? Basic Metabolic Prof ( BMP ); Status:Active; Requested for:27Jul2017; Perform:[facility]; Due:[id number];Ordered; For:Impaired fasting glucose; OrderedBy:Baljeet Doran; Obesity ?? [...] back pain; ANTONIETTA= N; Verified Transmission to [facility]; Last Updated By: Yanique Gorman; 04/26/2017 [...] Baljeet Doran M.D.; Apr 26 2017 9:37AM CONDENSER TESTER (Author) documented in this encounter Plan of Treatment Not on file documented as of this encounter Visit Diagnoses Not on filedocumented in this encounter Care Teams Administrative Specialist Relationship Specialty Start Date End Date Baljeet Doran MD [address] [facility] [address] [place] [address] PCP - General 11/24/16 documented as of this encounter
--- OUTSIDE RECORDS SUMMARY | 2024-07-20 19:40 | XMS_ITS | Encounter Summary ---
Author Organization [facility] Address [facility]6 [facility] [place] [address] [place] [address] Care Team Providers Care Sales Representative Jewelry Name Role Phone Baljeet Doran MD Primary Care Provider Encounter Details Date Type Department Care Team (Latest Contact Info) Description 12/06/2016 Abstract [facility] Medical Group Social History Tobacco [...] Name: Call Patient with results Assigned To: [facility] Regarding Patient: Raffaele Valenzuela, Status: In Progress Comment: Baljeet Doran - 24 Nov 2016 12:18 PM Patient normal X-ray of the back, continue with current medications Amy Phillips - 25 Nov 2016 6:50 AM TASK REASSIGNED: Previously Assigned To Baljeet Doarn Dawn - 25 Nov 2016 3:02 PM TASK IN PROGRESS Message: Multiple attempts to contact patient with no response to discuss results. Letter sent. Phoebe Signatures Electronically signed by : Amy Phillips, ; Dec 06 2016 10:15AM INJECTION MOLDING MACHINE TENDER (Author) documented in this encounter Plan of Treatment Not on file documented as of this encounter Visit Diagnoses Not on filedocumented in this encounter Care Teams Sales Representative Jewelry Relationship Specialty Start Date End Date Baljeet Doran MD [address] [address] PCP - General 11/24/16 documented as of this encounter
--- OUTSIDE RECORDS SUMMARY | 2024-07-20 19:40 | XMS_ITS | Encounter Summary ---
Author Organization [facility] Address [facility]6 [facility] [place] [address] [place] [address] Care Team Providers Care Barrel Rifler Button Name Role Phone Baljeet Doran MD Primary Care Provider Encounter Details Date Type Department Care Team (Latest Contact Info) Description 11/28/2016 Abstract [facility] [...] Name: Call Patient with results Assigned To: [facility] Regarding Patient: Raffaele [...] Amy Phillips, ; Nov 28 2016 10:49AM CLINICAL ENGINEERING MANAGER (Author) documented in this encounter Plan of Treatment Not on file documented as of this encounter Visit Diagnoses Not on filedocumented in this encounter Care Teams Barrel Rifler Button Relationship Specialty Start Date End Date Baljeet Doran MD [address] [address] PCP - General 11/24/16 documented as of this encounter
--- OUTSIDE RECORDS SUMMARY | 2024-07-20 19:40 | XMS_ITS | Encounter Summary ---
Author Organization [facility] Address [facility]6 [facility] [address] [place] [address] Care Team Providers Care Rn Paralegal Name Role Phone Baljeet Doran MD Primary [...] on filedocumented in this encounter Care Teams Rn Paralegal Relationship Specialty Start Date End Date Baljeet Doran MD [address] [facility] [address] [place] [address] PCP - General 11/24/16 documented as of this encounter
--- OUTSIDE RECORDS SUMMARY | 2024-07-20 19:40 | XMS_ITS | Encounter Summary ---
Author Organization [facility] Address [facility] [place] [address] [place] [address] Care Team Providers Care Trade Analyst Name Role Phone Baljeet Doran MD Primary Care Provider Reason for Visit * Reason Onset Date Comments Question 10/24/2019 Encounter Details Date Type Department Care Team (Late st Contact Info) Description 10/24/2019 Telephone [facility] Medical Group Multispecialty Care - [facility] [address] [facility] [place] [address] Tate Thomas MD [address] [place], [place] [phone] Question Social History Tobacco Use Types Packs/Day [...] on filedocumented in this encounter Care Teams Trade Analyst Relationship Specialty Start Date End Date Baljeet Doran MD [address] [address] PCP - General 11/24/16 documented as of this encounter
--- OUTSIDE RECORDS SUMMARY | 2024-07-20 19:40 | XMS_ITS | Encounter Summary ---
Author Organization [facility] Address [facility]6 [place] [address] [place] [address] Care Team Providers Care Electric Arc Welder Name Role Phone Baljeet Doran MD Primary Care Provider Encounter Details Date Type Department Care Team (Late st Contact Info) Description 11/12/2018 6:49 PM CDT - 11/12/2018 11:59 PM T Hospital Encounter [facility] [address] [place] [address] Lyndsey Hogue, DO [address] [place], [place] [phone] Discharge Disposition: Home or Self Care (Routine [...] SPEC DESCRIPTION THROAT 11/12/2018 6:50 PM CDT [facility] SPECIAL REQUESTS NO SPECIAL REQUEST 11/12/2018 6:50 PM CDT [facility] CULTURE RESULT LIGHT GROWTH OF NORMAL KAPIL PRESENT 11/14/2018 8:59 AM CDT [facility] THROAT SWAB / Unknown 11/12/2018 2:22 PM CDT 11/12/2018 6:52 PM CDT Lyndsey Hogue DO MICROBIOLOGY - GENERAL ORDERA BLES Final Result [facility] 3 [place] [address], documented in this encounter Visit Diagnoses Diagnosis Sore throat Acute pharyngitis documented in this encounter Care Teams Electric Arc Welder Relationship Specialty Start Date End Date Baljeet Doran MD [address] [place] [address] PCP - General 11/24/16 documented as of this encounter
--- OUTSIDE RECORDS SUMMARY | 2024-07-20 19:40 | XMS_ITS | Encounter Summary ---
Author Organization [facility] Address [facility]6 [facility] [place] [address] [place] [address] Care Team Providers Care Block Setter Gypsum Name Role Phone Baljeet Doran MD Primary Care Provider Reason for Visit * Reason Onset Date Comments Error 11/12/2018 Encounter Details Date Type Department Care Team (Late st Contact Info) Description 11/12/2018 Telephone [facility] Medical Group Family Medicine - [place] [address] [place] [phone] Baljeet Doran MD [address] [place], [place] [address] Error Social History Tobacco Use Types Packs/Day [...] on filedocumented in this encounter Care Teams Block Setter Gypsum Relationship Specialty Start Date End Date Baljeet Doran MD [address] [place], [place] [address] PCP - General 11/24/16 documented as of this encounter
--- OUTSIDE RECORDS SUMMARY | 2024-07-20 19:41 | XMS_ITS | Encounter Summary ---
Author Organization [facility] Address [facility] [place], [place] [address] [place] [address] Care Team Providers Care Take Out Waitress Name Role Phone Baljeet Doran MD Primary [...] Olga Weldon [address] [place] [address] Oneida Rice MD Social History [...] cerumen documented in this encounter Care Teams Take Out Waitress Relationship Specialty Start Date End Date Baljeet Doran MD [address] [facility] [address] [place] [address] PCP - General 11/24/16 Baljeet Doran MD [address] [facility] [address] [place] [address] PCP - General 07/26/16 11/23/16 Baljeet Doran MD [address] [place] [address] PCP - General 06/01/16 07/25/16 Baljeet Doran MD [address] [facility] [place] [address] PCP - General 05/26/16 05/31/16 Md, Generic Conversion, PCP - General 01/12/13 Md, Generic Conversion, MD PCP - General 11/29/12 Md, Generic Conversion, MD PCP - General 11/28/12 , Generic Conversion, PCP - General 01/09/12 Md, Generic Conversion, MD PCP - General 01/08/12 Md, Generic Conversion, MD PCP - General 04/23/11 documented as of this encounter
--- OUTSIDE RECORDS SUMMARY | 2024-07-20 19:41 | XMS_ITS | Encounter Summary ---
Author Organization [facility] Address [address] [facility] [place] [address] [place] [address] Care Team Providers Care Recreation Instructor Name Role Phone Baljeet Doran MD [...] (Late st Contact Info) Description 03/12/2001 [facility] [address] [place] [address] Oneida Rice MD Social History [...] on filedocumented in this encounter Care Teams Recreation Instructor Relationship Specialty Start Date End Date Baljeet Doran MD [address] [facility] [address] [place] [address] PCP - General 11/24/16 Baljeet Doran MD [address] [place] [address] PCP - General 07/26/16 11/23/16 Baljeet Doran MD [address] [place] [address] PCP - General 06/01/16 07/25/16 Baljeet Doran MD [address] [place], [place] [address] PCP - General 05/26/16 05/31/16 Md Generic [...]
--- OUTSIDE RECORDS SUMMARY | 2024-07-20 19:41 | XMS_ITS | Encounter Summary ---
Author Organization [facility] Address [facility] [place] [address] [place] [address] Care Team Providers Care Manager Pharmaceutical Name Role Phone Baljeet Doran MD Primary Care Provider Baljeet Doran MD Primary Care Provider Baljeet Doran MD Primary Care Provider Baljeet Doran MD Primary Care Provider Oneida Diaz MD Primary Care Provider Unavailable Encounter Details Date Type Department Care Team (Late st Contact Info) Description 05/25/2016 Abstract [facility] [place] [address] [facility], [address] [place] [phone] Baljeet Doran MD [address] [place] [phone] Social History Tobacco Use Types Packs/Day Years Used Date Smoking Tobacco: Never Assessed Sex and Gender Information Value Date Recorded Sex Assigned at Not on file Legal Sex Male 12:41 AM CDT Gender Identity Not on file Sexual Orientation Not on file documented as of this encounter Last Filed Vital Signs Vital Sign Reading Time Taken Comments Blood Pressure 126/70 05/25/2016 8:15 AM BATTERY TECHNICIAN Pulse 77 05/25/2016 8:15 AM BATTERY TECHNICIAN Temperature - - Respiratory Rate - - Oxygen Saturation - - Inhaled Oxygen Concentration - - Weight 92.1 kg (203 lb) 05/25/2016 8:15 AM BATTERY TECHNICIAN Height 177.8 cm (5' 10 ) 05/25/2016 8:15 AM BATTERY TECHNICIAN Body Mass Index 29.13 05/25/2016 8:15 AM BATTERY TECHNICIAN documented in this encounter Progress Notes * [...] due to this pain. 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 No drug use ?? No adventism beliefs ?? Occasional alcohol use ?? beer on special occasions ?? 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 Recreational activities ?? 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 Lipid Profile; Status:Active; Requested for:25May2016; Perform:[facility]; Due:[id number];Ordered; For:Health Maintenance; Ordered By:Baljeet Doran; Right shoulder pain 3. Naproxen 500 MG Oral Tablet; TAKE 1 TABLET EVERY 12 HOURS NEEDED Rx By: Baljeet Doran; Dispense: 14 Days ; #:28 Tablet; Refill: 0; For: Right shoulder pain; ANTONIETTA = N; Sent To: [facility] 361 4. XR SHOULDER 2+ VIEW RT ( Routine ); Status:Active; Requested for:25May2016; Perform:[facility]; Due:[id number];Ordered; For:Right shoulder pain; Ordered By:Baljeet Doran; Shoulder blade pain 5. XR C-SPINE 2-3V; Status:Active; Requested for:25May2016; Perform:[facility]; Due:[id number];Ordered; For:Shoulder blade pain; Ordered By:Baljeet Doran; 6. [...] Baljeet Doran M.D.; May 25 2016 9:02AM BATTERY TECHNICIAN (Author) documented in this encounter Plan of Treatment Not on file documented as of this encounter Procedures Procedure Name Priority Date/Time Associated Diagnosis Comments XR SHOULDER RT MIN 2V Routine 05/26/2016 8:51 AM BATTERY TECHNICIAN XR CERV SPINE 3V Routine 05/26/2016 8:43 AM BATTERY TECHNICIAN BASIC METABOLIC PANEL Routine 05/26/2016 7:55 AM BATTERY TECHNICIAN LIPID PANEL Routine 05/26/2016 7:55 AM BATTERY TECHNICIAN documented in this encounter Results * XR SHOULDER RT MIN 2V (05/26/2016 8:51 AM BATTERY TECHNICIAN) Anatomical Region Laterality Modality Shoulder Radiographic Ree ging 05/26/2016 8:51 AM BATTERY TECHNICIAN 05/26/2016 8:51 AM BATTERY TECHNICIAN Narrative 05/26/2016 8:55 AM BATTERY TECHNICIAN GIOVANA LEBRON ? ADMIT/SERVICE DATE: 05/26/16 ?? ACCT: [id number] ?DISCHARGE DATE: ?? : 1980 ??SEX: M ?ORD SITE: [facility] ?? PT TYPE: REG CLI ? ORDERING MD: BALJEET DORAN MD ? STUDY DATE ? REPORT # ?ORDER # ? EXT ORDER ID ?? 05/26/16 ?[id number] ? PROC CODE: ? [id number] ? PROCEDURE [...] - 05/09/2018 GIOVANA LEBRON ADMIT/SERVICE DATE:05/26/16 ACCT: [id number] DISCHARGE DATE: : 1980 SEX: M [facility] PT TYPE: REG CLI ORDERING MD:BALJEET DORAN MD STUDY DATE REPORT # ORDER # EXT ORDER ID 05/26/16 [id number] PROC CODE: [id number] PROCEDURE DESCRIPTION: XR SHOULDER [...] XR CERV SPINE 3V (05/26/2016 8:43 AM BATTERY TECHNICIAN) Anatomical Region Laterality Modality Spine Radiographic Ree ging 05/26/2016 8:43 AM BATTERY TECHNICIAN 05/26/2016 8:43 AM BATTERY TECHNICIAN Narrative 05/26/2016 8:46 AM BATTERY TECHNICIAN GIOVANA LEBRON ? ADMIT/SERVICE DATE: 05/26/16 ?? ACCT: [id number] ?DISCHARGE DATE: ?? : 1980 ??SEX: M ?ORD SITE: [facility] ?? PT TYPE: REG CLI ? ORDERING MD: BALJEET DORAN MD ? STUDY DATE ? REPORT # ?ORDER # ? EXT ORDER ID ?? 05/26/16 ? [id number] ?[id number] ? PROC CODE: ? [id number] ? PROCEDURE [...] - 05/10/2018 GIOVANA LEBRON ADMIT/SERVICE DATE:05/26/16 ACCT: [id number] DISCHARGE DATE: : 1980 SEX: M [facility] PT TYPE: REG CLI ORDERING MD:BALJEET DORAN MD STUDY DATE REPORT # ORDER # EXT ORDER ID 05/26/16 [id number] PROC CODE: [id number] PROCEDURE DESCRIPTION: XR CERVICAL [...] * (ABNORMAL) LIPID PANEL (05/26/2016 7:55 AM BATTERY TECHNICIAN) CHOLESTEROL 203(H) <200 MG/DL [facility] TO EPIC [...] [facility] TO EPIC CONVERSION 05/26/2016 7:55 AM BATTERY TECHNICIAN 05/26/2016 7:55 AM BATTERY TECHNICIAN Narrative [facility] TO EPIC CONVERSION - 05/26/2016 4:11 PM BATTERY TECHNICIAN [id number] 4:50PM by Baljeet Doran: ??appt 06/23 impaired fasting glucose, HLP and hypertriglyceridemia. Result Communication: No patient communication needed at this time us Baljeet Doran MD LABORATORY Final R esult [facility] TO EPIC CONVERSION * (ABNORMAL) BASIC METABOLIC PANEL (05/26/2016 7:55 AM BATTERY TECHNICIAN) GLUCOSE 102(H) 70 - 99 mg/dL [facility] [...] [facility] TO EPIC CONVERSION 05/26/2016 7:55 AM BATTERY TECHNICIAN 05/26/2016 7:55 AM BATTERY TECHNICIAN Narrative [facility] TO EPIC CONVERSION - 05/26/2016 4:11 PM BATTERY TECHNICIAN [id number] 4:50PM by Baljeet Doran: ??appt 06/23 impaired fasting glucose, HLP and hypertriglyceridemia. Result Communication: No patient communication needed at this time us Baljeet Doran MD LABORATORY Final R esult [facility] TO EPIC CONVERSION documented in this encounter Visit Diagnoses Not on filedocumented in this encounter Care Teams Manager Pharmaceutical Relationship Specialty Start Date End Date Baljeet Doran MD [address] [place] [address] PCP - General 11/24/16 Baljeet Doran MD [address] [place], [place] [address] PCP - General 07/26/16 11/23/16 Baljeet Doran MD [address] [place], [place] [phone] PCP - General 06/01/16 07/25/16 Baljeet Doran MD [address] [place], [place] [phone] PCP - General 05/26/16 05/31/16 Oneida Diaz MD PCP - General 01/12/13 documented as of this encounter
--- OUTSIDE RECORDS SUMMARY | 2024-07-20 19:41 | XMS_ITS | Encounter Summary ---
Author Organization [facility] Address [facility] [place] [address] [place] [address] Care Team Providers Care Bottle Blower Name Role Phone Baljeet Doran MD Primary Care Provider Baljeet Doran MD Primary Care Provider Baljeet Doran MD Primary Care Provider Baljeet Doran MD Primary Care Provider Md Generic Conversion Primary Care Provider Unavailable Md Generic Conversion Primary Care Provider Unavailable Encounter Details Date Type Department Care Team (Late st Contact Info) Description 11/29/2012 Emergency [facility] [place] [address] Basim Sanford MD Social History [...] unspecified documented in this encounter Care Teams Bottle Blower Relationship Specialty Start Date End Date Baljeet Doran MD [address] [place] [address] PCP - General 11/24/16 Baljeet Doran MD [address] [place], [place] [address] PCP - General 07/26/16 11/23/16 Baljeet Doran MD [address] [place], [place] [address] PCP - General 06/01/16 07/25/16 Baljeet Doran MD [address] [place], [place] [address] PCP - General 05/26/16 05/31/16 , Generic Conversion, PCP - General 01/12/13 , Generic Conversion, PCP - General 11/29/12 documented as of this encounter
--- OUTSIDE RECORDS SUMMARY | 2024-07-20 19:41 | XMS_ITS | Encounter Summary ---
Author Organization [facility] Address [facility] [place] [address] [place] [address] Care Team Providers Care Employee Benefits Director Name Role Phone Baljeet Doran MD Primary Care Provider Baljeet Doran MD Primary Care Provider Baljeet Doran MD Primary Care Provider Encounter Details Date Type Department Care Team (Late st Contact Info) Description 06/01/2016 Abstract [facility] Diagnostic Imaging [address] [place], [place] [phone] Baljeet Doran MD [address] [place], [place] [phone] Social History Tobacco Use Types Packs/Day Years [...] organs documented in this encounter Care Teams Employee Benefits Director Relationship Specialty Start Date End Date Baljeet Doran MD [address] [place], [place] [phone] PCP - General 11/24/16 Baljeet Doran MD [address] [phone] PCP - General 07/26/16 11/23/16 Baljeet Doran MD [address] [phone] PCP - General 06/01/16 07/25/16 documented as of this encounter
--- OUTSIDE RECORDS SUMMARY | 2024-07-20 19:41 | XMS_ITS | Encounter Summary ---
Author Organization [facility] Address [facility] [facility] [place], [place] [address] [place] [address] Care Team Providers Care Alteration Inspector Name Role Phone Baljeet Doran MD Primary Care Provider Baljeet Doran MD Primary Care Provider Baljeet Doran MD Primary Care Provider Baljeet Doran MD Primary Care Provider Md Generic Conversion Primary Care Provider Unavailable Md Generic Conversion Primary Care Provider Unavailable Md Generic Conversion Primary Care Provider Unavailable Encounter Details Date Type Department Care Team (Late st Contact Info) Description 11/28/2012 Emergency [facility] Emergency Room [place], [place] [address] Sae Bernard N, DO [address] [facility] [address] [place] [address] Social History Tobacco Use Types Packs/Day Years [...] Dehydration documented in this encounter Care Teams Alteration Inspector Relationship Specialty Start Date End Date Baljeet Doran MD [address] [place] [address] PCP - General 11/24/16 Baljeet Doran MD [address] [place], [place] [address] PCP - General 07/26/16 11/23/16 Baljeet Doran MD [address] [place], [place] [address] PCP - General 06/01/16 07/25/16 Baljeet Doran MD [address] [facility] [address] [place], [place] [address] PCP - General 05/26/16 05/31/16 , Generic Conversion, PCP - General 01/12/13 , Generic Conversion, PCP - General 11/29/12 Md Generic Conversion, PCP - General 11/28/12 documented as of this encounter
--- OUTSIDE RECORDS SUMMARY | 2024-07-20 19:41 | XMS_ITS | Encounter Summary ---
Author Organization [facility] Address [facility]6 [place] [address] [place] [address] Care Team Providers Care Ice Resurfacing Machine Operators Name Role Phone Baljeet Doran MD Primary Care Provider aBljeet Doran MD Primary Care Provider Baljeet Doran [...] 01/09/[address] [facility] [address] [place], [place] [phone] Vicky Vora, OFFAL ICER POULTRY [address] [facility] [address] [place] [address] Social History Tobacco Use Types Packs/Day Years [...] sinus documented in this encounter Care Teams Ice Resurfacing Machine Operators Relationship Specialty Start Date End Date Baljeet Doarn MD [address] [place] [address] PCP - General 11/24/16 Baljeet Doran MD [address] [place], [place] [address] PCP - General 07/26/16 11/23/16 Baljeet Doran MD [address] [place], [place] [address] PCP - General 06/01/16 07/25/16 Baljeet Doran MD [address] [place], [place] [address] PCP - General 05/26/16 05/31/16 , Generic Conversion, PCP - General 01/12/13 , Generic Conversion, PCP - General 11/29/12 , Generic Conversion, PCP - General 11/28/12 , Generic Conversion, PCP - General 01/09/12 documented as of this encounter
--- OUTSIDE RECORDS SUMMARY | 2024-07-20 19:41 | XMS_ITS | Encounter Summary ---
Author Organization [facility] Address [facility] [address] [place] [address] Care Team Providers Care Simonizer Name Role Phone Baljeet Doran MD Primary [...] (Report) RAFFAELE LEBRON ADMIT/SERVICE DATE: 06/01/16 ACCT: [id number] DISCHARGE DATE: : 1980 SEX: M ORD SITE: [facility] [place] [facility] PT TYPE: REG CLI ORDERING MD: BALJEET DORAN MD STUDY DATE REPORT # ORDER # EXT ORDER ID 06/01/16 [id number] PROC CODE: SCROT/TEST PROCEDURE DESCRIPTION: US SCROTUM [...] on filedocumented in this encounter Care Teams Simonizer Relationship Specialty Start Date End Date Baljeet Doran MD [address] [place] [address] PCP - General 11/24/16 Baljeet Doran MD [address] [address] PCP - General 07/26/16 11/23/16 Baljeet Doran MD [address] [address] PCP - General 06/01/16 07/25/16 documented as of this encounter
--- OUTSIDE RECORDS SUMMARY | 2024-07-20 19:41 | XMS_ITS | Encounter Summary ---
Author Organization [facility] Address [facility] [place] [address] [place] [address] Care Team Providers Care Chainstitch Sewing Machine Operator Name Role Phone Baljeet Doran MD Primary Care Provider Baljeet Doran MD Primary Care Provider Baljeet Doran MD Primary Care Provider Baljeet Doran MD Primary Care Provider Encounter Details Date Type Department Care Team (Late st Contact Info) Description 05/26/2016 Abstract [facility] [address] [place], [place] [phone] Baljeet Doran MD [address] [facility] [address] [place] [address] Social History Tobacco Use Types [...] BASIC METABOLIC PANEL Routine 05/26/2016 7:55 AM SPARE HAND LIPID PANEL Routine 05/26/2016 7:55 AM SPARE HAND documented in this encounter Results * (ABNORMAL) LIPID PANEL (05/26/2016 7:55 AM SPARE HAND) CHOLESTEROL 203(H) <200 MG/DL 05/26/2016 5:[address] [facility] Comment: NOTE: Acetaminophen, N Acetyl p benzoquinone imine (NAPQI), N acetylcysteine (NAC), Metamizole, 4 Aminoantipyrine (4 AAP) and 4 Methylamino antipyrine (4 MAP) at high concentrations can cause falsely low results on Lactate, Uric Acid, Cholesterol, Triglyceride, HDL, and Direct LDL. TRIGLYCERIDES 156(H) <150 MG/DL 05/26/2016 5:[address] [facility] HDL 41(L) >59 MG/DL 05/26/2016 5:[address] [facility] LDL (CALCULATED) 131(H) <100 MG/DL 05/26/2016 5:[address] [facility] NON HDL CHOLESTEROL 162(H) <130 MG/DL 05/26/2016 5:[address] [facility] Comment: NOTE: WHEN THE TRIGLYCERIDES ARE >200 mg/dL, NON HDL C IS A SECONDARY TARGET OF THERAPY, WITH A GOAL 30 mg/dL HIGHER THAN THE IDENTIFIED LDL C GOAL. CHOL/HDL RATIO 5.0(H) 0.0 - 4.5 05/26/2016 5:[address] [facility] VLDL CALCULATION 31 5 - 55 MG/DL 05/26/2016 5:[address] [facility] LIPID INTERPRETATION 05/26/2016 5:[address] [facility] Comment: NIH CONCENSUS REPORT RECOMMENDATIONS: ?ADULT [...] ?LDL ? >=160 ?>=130 05/26/2016 7:55 AM SPARE HAND 05/26/2016 9:05 AM SPARE HAND us Generic Conversion Md [facility] Final R esult [facility] [address] [place] [address], * (ABNORMAL) BASIC METABOLIC PANEL (05/26/2016 7:55 AM SPARE HAND) GLUCOSE 102(H) 70 - 99 mg/dL 05/26/2016 5:11 PM SPARE HAND [facility] BUN 13 8 - 23 mg/dL 05/26/2016 5:[address] [facility] CREATININE S/P/B 0.85 0.70 - 1.20 mg/dL 05/26/2016 5:[address] [facility] SODIUM S/P/B 143 136 - 145 mmol/L 05/26/2016 5:[address] [facility] POTASSIUM S/P/B 4.0 3.5 - 5.1 mmol/L 05/26/2016 5:[address] [facility] CHLORIDE S/P/B 99 98 - 107 mmol/L 05/26/2016 5:[address] [facility] CO2 33(H) 22 - 29 mmol/L 05/26/2016 5:[address] [facility] CALCIUM S/P/B 9.7 8.6 - 10.2 mg/dL 05/26/2016 5:[address] [facility] ANION GAP 15 8 - 20 05/26/2016 5:[address] [facility] EGFR NON-AFR. AMER. >60 >60 mL/min/1.7 3m'2 05/26/2016 5:[address] [facility] EGFR AFR. AMER. >60 >60 mL/min/1.7 3m'2 05/26/2016 5:[address] [facility] Comment: NOTE: eGFR is not calculated for patients <18 years of age. This is an estimated GFR (CKD EPI) and should not be used for calculating drug doses. 05/26/2016 7:55 AM SPARE HAND 05/26/2016 9:05 AM SPARE HAND us Generic Conversion Md [facility] Final R esult [facility] [address] [place] [address], [place] [phone] documented in this encounter Visit Diagnoses Diagnosis Encounter for general adult medical examination without abnormal findings Unspecified general medical examination documented in this encounter Care Teams Chainstitch Sewing Machine Operator Relationship Specialty Start Date End Date Baljeet Doran MD [address] [place], [place] [address] PCP - General 11/24/16 Baljeet Doran MD [address] [place], [place] [address] PCP - General 07/26/16 11/23/16 Baljeet Doran MD [address] [place], [place] [phone] PCP - General 06/01/16 07/25/16 Baljeet Doran MD [address] [place], [place] [phone] PCP - General 05/26/16 05/31/16 documented as of this encounter
--- OUTSIDE RECORDS SUMMARY | 2024-07-20 19:41 | XMS_ITS | Encounter Summary ---
Author Organization [facility] Address [facility] [place] [address] [place] [address] Care Team Providers Care Fabrication Operator Name Role Phone Baljeet Doran MD Primary Care Provider Baljeet Doran MD Primary Care Provider Baljeet Doran MD Primary Care Provider Encounter Details Date Type Department Care Team (Latest Contact Info) Description 06/08/2016 Abstract [facility] Social History Tobacco [...] Name: Call Patient with results Assigned To: [facility] - NURSES Regarding Patient: Raffaele [...] Amy Phillips, ; Jun 08 2016 10:37AM METAL TURNER (Author) documented in this encounter Plan of Treatment Not on file documented as of this encounter Visit Diagnoses Not on filedocumented in this encounter Care Teams Fabrication Operator Relationship Specialty Start Date End Date Baljeet Doran MD [address] [place] [address] PCP - General 11/24/16 Baljeet Doran MD [address] [place], [place] [address] PCP - General 07/26/16 11/23/16 Baljeet Doran MD [address] [place], [place] [phone] PCP - General 06/01/16 07/25/16 documented as of this encounter
--- OUTSIDE RECORDS SUMMARY | 2024-07-20 19:41 | XMS_ITS | Encounter Summary ---
Author Organization [facility] Address [address] [facility] [place] [address] [place] [address] Care Team Providers Care Floor Layer Apprentice Name Role Phone Baljeet Doran MD [...] (Late st Contact Info) Description 01/22/2011 Abstract [facility] [place] [address] Peri Granado MD [address] [place] [phone] Nikita Ward MD [address] [place] [address] Social History Tobacco Use Types Packs/Day Years [...] mood documented in this encounter Care Teams Floor Layer Apprentice Relationship Specialty Start Date End Date Baljeet Doran MD [address] [place] [address] PCP - General 11/24/16 Baljeet Doran MD [address] [place] [address] PCP - General 07/26/16 11/23/16 Baljeet Doran MD [address] [place], [place] [address] PCP - General 06/01/16 07/25/16 Baljeet Doran MD [address] [place], [place] [address] PCP - General 05/26/16 05/31/16 Md Generic [...]
--- OUTSIDE RECORDS SUMMARY | 2024-07-20 19:41 | XMS_ITS | Encounter Summary ---
Author Organization [facility] Address [address] [facility] [place] [address] [place] [address] Care Team Providers Care Magneto Electrician Name Role Phone Baljeet Doran MD Primary [...] (Late st Contact Info) Description 01/21/2011 Emergency [facility] [place] [address] Kevin Celaya MD [facility] [place] [address] Social History Tobacco Use Types Packs/Day Years [...] disorder documented in this encounter Care Teams Magneto Electrician Relationship Specialty Start Date End Date Baljeet Doran MD [address] [place] [address] PCP - General 11/24/16 Baljeet Doran MD [address] [place], [place] [address] PCP - General 07/26/16 11/23/16 Baljeet Doran MD [address] [place], [place] [address] PCP - General 06/01/16 07/25/16 Baljeet Doran MD [address] [place], [place] [address] PCP - General 05/26/16 05/31/16 Md Generic [...]
--- OUTSIDE RECORDS SUMMARY | 2024-07-20 19:41 | XMS_ITS | Encounter Summary ---
Author Organization [facility] Address [address] [facility] [place] [place] [address] [place] [address] Care Team Providers Care Device Repair Technician Name Role Phone Baljeet Doran MD [...] (Late st Contact Info) Description 07/17/2010 Emergency [facility] Emergency Room [address] [place], [place] [address] Ayla Carney MD [address] [place] [address] Social History Tobacco Use Types Packs/Day Years Used Date Smoking Tobacco: Never Assessed Sex and Gender Information Value Date Recorded Sex Assigned at Not on file Legal Sex Male 12:41 AM CDT Gender Identity Not on file Sexual Orientation Not on file documented as of this encounter Plan of Treatment Not on file documented as of this encounter Visit Diagnoses Diagnosis Opioid abuse ([facility] Opioid abuse, unspecified documented in this encounter Care Teams Device Repair Technician Relationship Specialty Start Date End Date Baljeet Doran MD [address] [place] [address] PCP - General 11/24/16 Baljeet Doran MD [address] [place] [address] PCP - General 07/26/16 11/23/16 Baljeet Doran MD [address] [place], [place] [address] PCP - General 06/01/16 07/25/16 Baljeet Doran MD [address] [place], [place] [address] PCP - General 05/26/16 05/31/16 Md Generic [...]
--- OUTSIDE RECORDS SUMMARY | 2024-07-20 19:41 | XMS_ITS | Encounter Summary ---
Author Organization [facility] Address [address] [facility] [place] [address] [place] [address] Care Team Providers Care Junior Buyer Name Role Phone Baljeet Doran MD Primary Care Provider Baljeet Doran MD Primary Care Provider Baljeet Doran MD Primary Care Provider Baljeet Doran MD Primary Care Provider Encounter Details Date Type Department Care Team (Latest Contact Info) Description 05/30/2016 Abstract [facility] Medical [facility] Social History Tobacco Use Types [...] on filedocumented in this encounter Care Teams Junior Buyer Relationship Specialty Start Date End Date Baljeet Doran MD [address] [place], [place] [id number] PCP - General 11/24/16 Baljeet Doran MD [address] [place], [place] [address] PCP - General 07/26/16 11/23/16 Baljeet Doran MD [address] [id number] PCP - General 06/01/16 07/25/16 Baljeet Doran MD [address] [id number] PCP - General 05/26/16 05/31/16 documented as of this encounter
--- OUTSIDE RECORDS SUMMARY | 2024-07-20 19:41 | XMS_ITS | Encounter Summary ---
Author Organization [facility] Address [facility] [place] [address] [place] [address] Care Team Providers Care Respiratory Tech Name Role Phone Baljeet Doran MD Primary Care Provider Baljeet Doran MD Primary Care Provider Baljeet Doran MD Primary Care Provider Baljeet Doran MD Primary Care Provider Encounter Details Date Type Department Care Team (Latest Contact Info) Description 05/27/2016 Abstract [facility] Medical Group Social History [...] Name: Call Patient with results Assigned To: [facility] - NURSES Regarding Patient: Raffaele Valenzuela, [...] Amy Phillips, ; May 27 2016 12:52PM SLAB LIFTING ENGINEER (Author) documented in this encounter Plan of Treatment Not on file documented as of this encounter Visit Diagnoses Not on filedocumented in this encounter Care Teams Respiratory Tech Relationship Specialty Start Date End Date Baljeet Doran MD [address] [place] [address] PCP - General 11/24/16 Baljeet Doran MD [address] [place], [place] [address] PCP - General 07/26/16 11/23/16 Baljeet Doran MD [address] [place], [place] [address] PCP - General 06/01/16 07/25/16 Baljeet Doran MD [address] [place], [place] [address] PCP - General 05/26/16 05/31/16 documented as of this encounter
--- OUTSIDE RECORDS SUMMARY | 2024-07-20 19:41 | XMS_ITS | Encounter Summary ---
Author Organization [facility] Address [facility] [facility] [place] [address] [place] [address] Care Team Providers Care Electrical Electronics Technician Name Role Phone Baljeet Doran MD Primary Care Provider Baljeet Doran MD Primary Care Provider Baljeet Doran MD Primary Care Provider Encounter Details Date Type Department Care Team (Latest Contact Info) Description 06/22/2016 Abstract [facility] Medical Group , Oneida Mendiola MD [...] Name: Call Patient with results Assigned To: [facility] - NURSES Regarding Patient: Raffaele Valenzuela, [...] check on referral status. Pt states the [phone] number listed for him doesn't receive service all the time and that is probably why we haven't been able to contact him. Requested we call him on [phone] from now on, and the [phone] as an alternate number. Pt verbalized understanding of all and in agreement with plan. depRN Signatures Electronically signed by : Kajal Baum R.N.; Jun 22 2016 9:34AM SUCCESS COACH (Author) documented in this encounter Plan of Treatment Not on file documented as of this encounter Visit Diagnoses Not on filedocumented in this encounter Care Teams Electrical Electronics Technician Relationship Specialty Start Date End Date Baljeet Doran MD [address] [place], [place] [address] PCP - General 11/24/16 Baljeet Doran MD [address] [place], [place] [id number] PCP - General 07/26/16 11/23/16 Baljeet Doran MD [address] [place], [place] [address] PCP - General 06/01/16 07/25/16 documented as of this encounter
--- OUTSIDE RECORDS SUMMARY | 2024-07-20 19:41 | XMS_ITS | Encounter Summary ---
Author Organization [facility] Address Critical access hospital6 [facility] [place] [address] [place] [address] Care Team Providers Care Internal Control Manager Name Role Phone Baljeet Doran MD Primary Care Provider Baljeet Doran MD Primary Care Provider Baljeet Doran MD Primary Care Provider Encounter Details Date Type Department Care Team (Latest Contact Info) Description 06/06/2016 Abstract [facility] Medical Group Social [...] Name: Call Patient with results Assigned To: [facility] - NURS[facility] Regarding Patient: Raffaele Valenzuela, Status: [...] Amy Phillips, ; Jun 06 2016 11:31AM RETAIL PHARMACY TECHNICIAN (Author) documented in this encounter Plan of Treatment Not on file documented as of this encounter Visit Diagnoses Not on filedocumented in this encounter Care Teams Internal Control Manager Relationship Specialty Start Date End Date Baljeet Doran MD [address] [facility] [address] [place], [place] [address] PCP - General 11/24/16 Baljeet Doran MD [address] [facility] [address] [place], [place] [id number] PCP - General 07/26/16 11/23/16 Baljeet Doran MD [address] [facility] [address] [place], [place] [address] PCP - General 06/01/16 07/25/16 documented as of this encounter
--- OUTSIDE RECORDS SUMMARY | 2024-07-20 19:41 | XMS_ITS | Encounter Summary ---
Author Organization [facility] Address [facility] [facility] [place] [address] [place] [address] Care Team Providers Care Newspaper Deliverer Name Role Phone Baljeet Doran MD Primary Care Provider Baljeet Doran MD Primary Care Provider Baljeet Doran MD Primary Care Provider Encounter Details Date Type Department Care Team (Late st Contact Info) Description 06/01/2016 Abstract [facility] Medical Group Family Medicine - [place] [address] [place] [address] Baljeet Doran MD [address] [place], [place] [id number] Social History Tobacco Use Types Packs/Day Years Used Date Smoking Tobacco: Never Assessed Sex and Gender Information Value Date Recorded Sex Assigned at Not on file Legal Sex Male 12:41 AM CDT Gender Identity Not on file Sexual Orientation Not on file documented as of this encounter Last Filed Vital Signs Vital Sign Reading Time Taken Comments Blood Pressure 112/60 06/01/2016 9:48 AM DIAMOND WHEEL MOLDER Pulse 72 06/01/2016 9:48 AM DIAMOND WHEEL MOLDER Temperature - - Respiratory Rate - - Oxygen Saturation - - Inhaled Oxygen Concentration - - Weight 92.1 kg (203 lb) 06/01/2016 9:48 AM DIAMOND WHEEL MOLDER Height - - Body Mass Index 29.13 05/25/2016 8:15 AM DIAMOND WHEEL MOLDER documented in this encounter Procedure Notes * [...] pain; ANTONIETTA = N; Verified Transmission to [facility] 361; Last Updated By: Kamille Willson; 06/01/2016 9:52:04 AM Discussion/Summary Right shoulder pain: Steroid injection performed as above, if helpful he may repeat after 3 months if needed. Signatures Electronically signed by : Baljeet Doran M.D.; Jun 01 2016 10:17AM DIAMOND WHEEL MOLDER (Author) documented in this encounter Plan of Treatment Not on file documented as of this encounter Visit Diagnoses Not on filedocumented in this encounter Care Teams Newspaper Deliverer Relationship Specialty Start Date End Date Baljeet Doran MD [address] [place], [place] [address] PCP - General 11/24/16 Baljeet Doran MD [address] [place] [address] PCP - General 07/26/16 11/23/16 Baljeet Doran MD [address] [place] [address] PCP - General 06/01/16 07/25/16 documented as of this encounter
--- OUTSIDE RECORDS SUMMARY | 2024-07-20 19:41 | XMS_ITS | Encounter Summary ---
Author Organization [facility] Address [facility] [facility] [place] [address] [place] [address] Care Team Providers Care Bulb Filler Name Role Phone Baljeet Doran MD Primary [...] (Late st Contact Info) Description 01/08/2012 Emergency [facility] [address] [facility] [place] [place] [id number] Barb Waggoner L, DO [address] [place] [address] Social History Tobacco Use Types Packs/Day Years [...] decision documented in this encounter Care Teams Bulb Filler Relationship Specialty Start Date End Date Andreea, Baljeet Vern, MD [address] [place] [address] PCP - General 11/24/16 Baljeet Doran MD [address] [place] [address] PCP - General 07/26/16 11/23/16 Baljeet Doran MD [address] [place], [place] [address] PCP - General 06/01/16 07/25/16 Baljeet Doran MD [address] [place], [place] [address] PCP - General 05/26/16 05/31/16 Md Generic Conversion, PCP - General 01/12/13 Md Generic Conversion, PCP - General 11/29/12 Md Generic Conversion, PCP - General 11/28/12 Md Generic Conversion, PCP - General 01/09/12 Md Generic Conversion, PCP - General 01/08/12 documented as of this encounter
--- OUTSIDE RECORDS SUMMARY | 2024-07-20 19:41 | XMS_ITS | Encounter Summary ---
Author Organization [facility] Address [facility] [place] [address] [place] [address] Care Team Providers Care Forming Department End Finder Name Role Phone Baljeet Doran MD Primary Care Provider Baljeet Doran MD Primary Care Provider Baljeet Doran MD Primary Care Provider Baljeet Doran MD Primary Care Provider Encounter Details Date Type Department Care Team (Latest Contact Info) Description 05/26/2016 Abstract [facility] Medical Group Oneida Diaz MD Social History [...] Call Patient with results Assigned To: [facility] - NURSES Regarding Patient: Raffaele [...] Kajal Baum R.N.; May 26 2016 5:28PM DIETETIC TECHNICIAN REGISTERED (Author) * Baljeet Doran MD - 05/26/2016 [...] RAFFAELE VALENZUELA SRAVANI ADMIT/SERVICE DATE: 05/26/16 ACCT: [id number] DISCHARGE DATE: : 1980 SEX: M ORD SITE: [facility] OUTPATNT IMAGING PT TYPE: REG CLI ORDERING MD: BALJEET DORAN MD STUDY DATE REPORT # ORDER # EXT ORDER ID 05/26/16 [id number] PROC CODE: [id number] PROCEDURE DESCRIPTION: XR SHOULDER [...] (Report) RAFFAELE VALENZUELA ADMIT/SERVICE DATE: 05/26/16 ACCT: [id number] DISCHARGE DATE: : 1980 SEX: M ORD SITE: [facility] OUTPATNT IMAGING PT TYPE: REG CLI ORDERING MD: BALJEET DORAN MD STUDY DATE REPORT # ORDER # EXT ORDER ID 05/26/16 [id number] PROC CODE: [id number] PROCEDURE DESCRIPTION: XR CERVICAL [...] on filedocumented in this encounter Care Teams Forming Department End Finder Relationship Specialty Start Date End Date Baljeet Doran MD [address] [place] [address] PCP - General 11/24/16 Baljeet Doran MD [address] [place], [place] [id number] PCP - General 07/26/16 11/23/16 Baljeet Doran MD [address] [place] [address] PCP - General 06/01/16 07/25/16 Baljeet Doran MD [address] [place], [place] [address] PCP - General 05/26/16 05/31/16 documented as of this encounter
--- OUTSIDE RECORDS SUMMARY | 2024-07-20 19:41 | XMS_ITS | Encounter Summary ---
Author Organization [facility] Address [address] [facility] [place] [address] [place] [address] Care Team Providers Care Bulk Fluids Handler Name Role Phone Baljeet Doran MD Primary [...] (Late st Contact Info) Description 08/30/2005 Emergency [facility] Emergency Room [address] [place], [place] [address] Oneida Rice MD Social History Tobacco Use [...] on filedocumented in this encounter Care Teams Bulk Fluids Handler Relationship Specialty Start Date End Date Baljeet Doran MD [address] [place] [address] PCP - General 11/24/16 Baljeet Doran MD [address] [place] [address] PCP - General 07/26/16 11/23/16 Baljeet Doran MD [address] [place], [place] [address] PCP - General 06/01/16 07/25/16 Baljeet Doran MD [address] [place], [place] [address] PCP - General 05/26/16 05/31/16 Md Generic [...]
--- OUTSIDE RECORDS SUMMARY | 2024-07-20 19:41 | XMS_ITS | Encounter Summary ---
Author Organization [facility] Address [address] [facility] [place] [address] [place] [address] Care Team Providers Care Manganese Breaker Name Role Phone Baljeet Doran MD Primary [...] Info) Description 03/02/2009 Abstract [place], [place] [address] Peri Granado MD [address] [place] [id number] Social History Tobacco Use Types Packs/Day [...] on filedocumented in this encounter Care Teams Manganese Breaker Relationship Specialty Start Date End Date Baljeet Doran MD [address] [place] [address] PCP - General 11/24/16 Baljeet Doran MD [address] [place], [place] [address] PCP - General 07/26/16 11/23/16 Baljeet Doran MD [address] [place], [place] [address] PCP - General 06/01/16 07/25/16 Baljeet Doran MD [address] [place], [place] [id number] PCP - General 05/26/16 05/31/16 Md Generic [...]
--- OUTSIDE RECORDS SUMMARY | 2024-07-20 19:41 | XMS_ITS | Encounter Summary ---
Author Organization [facility] Address [address] [facility] [place] [address] [place] [address] Care Team Providers Care Railway Traction Line Worker Name Role Phone Baljeet Doran MD Primary Care Provider Baljeet Doran MD Primary Care Provider Baljeet Doran MD Primary Care Provider Encounter Details Date Type Department Care Team (Latest Contact Info) Description 06/27/2016 Abstract [facility] Medical Group Baljeet Doran MD [address] [place] [address] Social History Tobacco Use Types Packs/Day [...] on filedocumented in this encounter Care Teams Railway Traction Line Worker Relationship Specialty Start Date End Date Baljeet Doran MD [address] [place] [address] PCP - General 11/24/16 Baljeet Doran MD [address] [place], [place] [id number] PCP - General 07/26/16 11/23/16 Baljeet Doran MD [address] [place] [phone] PCP - General 06/01/16 07/25/16 documented as of this encounter
--- OUTSIDE RECORDS SUMMARY | 2024-07-20 19:41 | XMS_ITS | Encounter Summary ---
Author Organization [facility] Address [facility] [facility] [place] [address] [place] [address] Care Team Providers Care Sand Technologist Name Role Phone Baljeet Doran MD Primary [...] (Late st Contact Info) Description 02/21/2011 Abstract [facility] [place] [address] Md Generic MD Maury Social History Tobacco [...] classified documented in this encounter Care Teams Sand Technologist Relationship Specialty Start Date End Date Baljeet Doran MD [address] [place] [address] PCP - General 11/24/16 Baljeet Doran MD [address] [place] [address] PCP - General 07/26/16 11/23/16 Baljeet Doran MD [address] [place], [place] [address] PCP - General 06/01/16 07/25/16 Baljeet Doran MD [address] [place] [address] PCP - General 05/26/16 05/31/16 , Generic [...]
--- OUTSIDE RECORDS SUMMARY | 2024-07-20 19:41 | XMS_ITS | Encounter Summary ---
Author Organization [facility] Address [facility] [facility] [place] [address] [place] [address] Care Team Providers Care Surgery Nurse Name Role Phone Baljeet Doran MD [...] Info) Description 02/22/2011 Abstract [place] [address] Peri Granado MD [address] [place] [place] [phone] Social History Tobacco Use Types Packs/Day [...] Diagnoses Diagnosis Opioid type dependence, abuse (CMS/HCC [facility]) Opioid type dependence, unspecified documented in this encounter Care Teams Surgery Nurse Relationship Specialty Start Date End Date Baljeet Doran MD [address] [place] [address] PCP - General 11/24/16 Baljeet Doran MD [address] [place] [address] PCP - General 07/26/16 11/23/16 Baljeet Doran MD [address] [place], [place] [address] PCP - General 06/01/16 07/25/16 Baljeet Doran MD [address] [place], [place] [address] PCP - General 05/26/16 05/31/16 Md Generic [...]
--- OUTSIDE RECORDS SUMMARY | 2024-07-20 19:41 | XMS_ITS | Encounter Summary ---
Author Organization [facility] Address [address] [facility] [place] [address] [place] [address] Care Team Providers Care Measurement Technician Name Role Phone Baljeet Doran MD [...] (Late st Contact Info) Description 06/25/2007 Abstract [facility] [address] [facility] [place], [place] [address] Larry Maldonado MD [address] [place] [address] Social History Tobacco Use Types [...] on filedocumented in this encounter Care Teams Measurement Technician Relationship Specialty Start Date End Date Baljeet Doran MD [address] [place] [address] PCP - General 11/24/16 Baljeet Doran MD [address] [place], [place] [address] PCP - General 07/26/16 11/23/16 Baljeet Doran MD [address] [place], [place] [address] PCP - General 06/01/16 07/25/16 Baljeet Doran MD [address] [place], [place] [address] PCP - General 05/26/16 05/31/16 Md Generic [...]
--- OUTSIDE RECORDS SUMMARY | 2024-07-20 19:41 | XMS_ITS | Encounter Summary ---
Author Organization [facility] Address [address] [place] [address] [place] [address] Care Team Providers Care Mechanic Industrial Truck Name Role Phone Baljeet Doran MD Primary [...] (Late st Contact Info) Description 09/12/2007 Abstract [facility] [address] [facility] [address] [place], [place] [id number] Larry Maldonado MD [address] [address] Social History Tobacco Use Types [...] on filedocumented in this encounter Care Teams Mechanic Industrial Truck Relationship Specialty Start Date End Date Baljeet Doran MD [address] [place] [address] PCP - General 11/24/16 aBljeet Doran MD [address] [place], [place] [address] PCP - General 07/26/16 11/23/16 Baljeet Doran MD [address] [place], [place] [address] PCP - General 06/01/16 07/25/16 Baljeet Doran MD [address] [place], [place] [address] PCP - General 05/26/16 05/31/16 Md Generic [...]
--- OUTSIDE RECORDS SUMMARY | 2024-07-20 19:41 | XMS_ITS | Encounter Summary ---
Author Organization [facility] Address [address] [facility] [place] [address] [place] [address] Care Team Providers Care Wireless Architect Name Role Phone Baljeet Doran MD [...] (Late st Contact Info) Description 09/15/2007 Abstract [facility] [address] [place] [address] Oneida Rice MD Social History [...] on filedocumented in this encounter Care Teams Wireless Architect Relationship Specialty Start Date End Date Baljeet Doran MD [address] [place] [address] PCP - General 11/24/16 Baljeet Doran MD [address] [place] [address] PCP - General 07/26/16 11/23/16 Baljeet Doran MD [address] [place] [address] PCP - General 06/01/16 07/25/16 Baljeet Doran MD [address] [place], [place] [address] PCP - General 05/26/16 05/31/16 Md Generic [...]
--- OUTSIDE RECORDS SUMMARY | 2024-07-20 19:41 | XMS_ITS | Encounter Summary ---
Author Organization [facility] Address [facility] [facility] [place] [address] [place] [address] Care Team Providers Care Space Engineer Name Role Phone Baljeet Doran MD Primary Care Provider Baljeet Doran MD Primary Care Provider Baljeet Doran MD Primary Care Provider Baljeet Doran MD Primary Care Provider Oneida Diaz MD Primary Care Provider Unavailable Encounter Details Date Type Department Care Team (Late st Contact Info) Description 01/12/2013 Abstract [facility] [place] [address] Mayito Narvaez MD Social History [...] tranquilizers documented in this encounter Care Teams Space Engineer Relationship Specialty Start Date End Date Baljeet Doran MD [address] [place] [address] PCP - General 11/24/16 Baljeet Doran MD [address] [facility] [address] [place] [address] PCP - General 07/26/16 11/23/16 Baljeet Doran MD [address] [facility] [address] [place], [place] [address] PCP - General 06/01/16 07/25/16 Baljeet Doran MD [address] [facility] [address] [place], [place] [address] PCP - General 05/26/16 05/31/16 Oneida Diaz MD PCP - General 01/12/13 documented as of this encounter
--- OUTSIDE RECORDS SUMMARY | 2024-07-20 19:41 | XMS_ITS | Encounter Summary ---
Author Organization [facility] Address [address] [facility] [place] [address] [place] [address] Care Team Providers Care Radio Station Engineer Name Role Phone Baljeet Doran MD [...] Contact Info) Description 03/21/2008 [place] [address] Oneida Rice MD Social History [...] on filedocumented in this encounter Care Teams Radio Station Engineer Relationship Specialty Start Date End Date Baljeet Doran MD [address] [place] [address] PCP - General 11/24/16 Baljeet Doran MD [address] [facility] [address] [place] [address] PCP - General 07/26/16 11/23/16 Baljeet Doran MD [address] [facility] [address] [place] [address] PCP - General 06/01/16 07/25/16 Baljeet Doran MD [address] [facility] [address] [place], [place] [address] PCP - General 05/26/16 05/31/16 , Generic [...]
--- OUTSIDE RECORDS SUMMARY | 2024-07-20 19:41 | XMS_ITS | Encounter Summary ---
Author Organization [facility] Address [address] [facility] [place] [address] [place] [address] Care Team Providers Care Dispensary Technician Name Role Phone Baljeet Doran MD [...] (Late st Contact Info) Description 02/18/2002 Abstract [facility] [address] [place] [address] Oneida Rice MD Social History [...] on filedocumented in this encounter Care Teams Dispensary Technician Relationship Specialty Start Date End Date Baljeet Doran MD [address] [place] [address] PCP - General 11/24/16 Baljeet Doran MD [address] [place] [address] PCP - General 07/26/16 11/23/16 Baljeet Doran MD [address] [place] [address] PCP - General 06/01/16 07/25/16 Baljeet Doran MD [address] [place], [place] [address] PCP - General 05/26/16 05/31/16 Md Generic [...]
--- OUTSIDE RECORDS SUMMARY | 2024-07-20 19:41 | XMS_ITS | Encounter Summary ---
Author Organization [facility] Address [address] [facility] [place] [address] [place] [address] Care Team Providers Care Mid Level Project Manager Name Role Phone Baljeet Doran MD [...] Info) Description 12/07/2007 Abstract [place], [place] [address] Peri Granado MD [address] [place] [id number] Social History Tobacco Use Types Packs/Day [...] on filedocumented in this encounter Care Teams Mid Level Project Manager Relationship Specialty Start Date End Date Baljeet Doran MD [address] [place] [address] PCP - General 11/24/16 Baljeet Doran MD [address] [place], [place] [address] PCP - General 07/26/16 11/23/16 Baljeet Doran MD [address] [place], [place] [address] PCP - General 06/01/16 07/25/16 Baljeet Doran MD [address] [place], [place] [id number] PCP - General 05/26/16 05/31/16 Md Generic [...]
--- OUTSIDE RECORDS SUMMARY | 2024-07-20 19:41 | XMS_ITS | Encounter Summary ---
Author Organization [facility] Address [address] [place] [address] [place] [address] Care Team Providers Care Aws Software Development Engineer Name Role Phone Baljeet Doran MD [...] (Late st Contact Info) Description 03/11/2001 Abstract [facility] [address] [place] [address] Oneida Rice MD Social History [...] on filedocumented in this encounter Care Teams Aws Software Development Engineer Relationship Specialty Start Date End Date Baljeet Doran MD [address] [place] [address] PCP - General 11/24/16 Baljeet Doran MD [address] [place] [address] PCP - General 07/26/16 11/23/16 Baljeet Doran MD [address] [place] [address] PCP - General 06/01/16 07/25/16 Baljeet Doran MD [address] [place], [place] [address] PCP - General 05/26/16 05/31/16 Md Generic [...]
--- OUTSIDE RECORDS SUMMARY | 2024-07-20 19:41 | XMS_ITS | Encounter Summary ---
Author Organization [facility] Address [facility] [place] [address] [place] [address] Care Team Providers Care Inside Finisher Name Role Phone Baljeet Doran MD Primary Care Provider Baljeet Doran MD Primary Care Provider Baljeet Doran MD Primary Care Provider Encounter Details Date Type Department Care Team (Latest Contact Info) Description 06/01/2016 Abstract [facility] Baljeet Doran MD [address] [place] [address] Social History Tobacco Use Types [...] Comments US TESTICULAR Routine 06/01/2016 12:03 PM FAIRING WORKER documented in this encounter Results * US TESTICULAR (06/01/2016 12:03 PM FAIRING WORKER) Anatomical Region Laterality Modality Pelvis Ultrasound 06/01/2016 12:0 3 PM FAIRING WORKER 06/01/2016 12:03 PM FAIRING WORKER Narrative 06/01/2016 12:09 PM FAIRING WORKER RAFFAELE VALENZUELA ? ADMIT/SERVICE DATE: 06/01/16 ?? ACCT: [id number] ?DISCHARGE DATE: ?? : 1980 ??SEX: M ?ORD SITE: [facility] ?? PT TYPE: REG CLI ? ORDERING MD: ALYSON,BALJEET RICE ? STUDY DATE ? REPORT # ?ORDER # ? EXT ORDER ID ?? 06/01/16 ? [id number] ? [id number] ?[id number] ? PROC CODE: ? SCROT/TEST ? PROCEDURE [...] - 05/09/2018 RAFFAELE VALENZUELA ADMIT/SERVICE DATE:06/01/16 ACCT: [id number] DISCHARGE DATE: : 1980 SEX: M [facility] PT TYPE: REG CLI ORDERING MD:BALJEET DORAN MD STUDY DATE REPORT # ORDER # EXT ORDER ID 06/01/16 [id number] PROC CODE: SCROT/TEST PROCEDURE DESCRIPTION: US SCROTUM [...] on filedocumented in this encounter Care Teams Inside Finisher Relationship Specialty Start Date End Date Baljeet Doran MD [address] [place], [place] [address] PCP - General 11/24/16 Baljeet Doran MD [address] [place] [address] PCP - General 07/26/16 11/23/16 Baljeet Doran MD [address] [id number] PCP - General 06/01/16 07/25/16 documented as of this encounter
--- OUTSIDE RECORDS SUMMARY | 2024-07-20 19:49 | XMS_ITS | Encounter Summary ---
Author Organization [facility] Address [address] [place] [address] Phone Care Team Providers Care Human Resource Intern Name Role Phone Vicky Galindo MD Primary Care Provider +1- [phone] Encounter Details Date Type Department Care Team (Late st Contact Info) Description 11/19/2020 Orders Only [facility] Orthopaedic Surgery [address] [facility] Advanced [facility] 12th [place] [address] [place] [address] Andi Eugene MD [address] [facility] [address] [place], [place] [id number] Illicit drug use (Primary Dx) Social History Tobacco Use Types Packs/Day Years Used Date Smoking Tobacco: Never Smokeless Tobacco: Never Sex and Gender Information Value Date Recorded Sex Assigned at Not on file 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 ??Amphetamine immunoassays are subject to significant false positive rates due to cross-reactivity of non-amphetamine drugs. Current Interpretive Data was last reviewed 2018. Barbiturates, ur Not Detected CutOff 200ng/mL [facility] Comment: Interpretive Data - Barbiturates: ??Samples containing greater than 200 ng/mL secobarbital or other cross-reacting barbiturate compounds are reported as positive. ??False positive and false negative results are possible. Current Interpretive Data was last reviewed 2018. Benzodiazepines, ur Not Detected CutOff 100ng/mL [facility] Comment: Interpretive Data - Benzodiazepines: ??Samples containing greater than 100 ng/mL nordiazepam or other cross-reacting compounds are reported as positive. ?? False positive and false negative results are possible. ?? Current Interpretive Data was last reviewed 2018. Cannabinoids, ur Not Detected CutOff 50 ng/mL [facility] Comment: Interpretive Data - Cannabinoids: ??Samples containing greater than 50 ng/mL delta-9 THC -COOH or other cross-reacting compounds are reported as positive. ??False positive and false negative results are possible. ?? Current Interpretive Data was last reviewed 2018. Cocaine, ur Not Detected CutOff 150ng/mL [facility] Comment: Interpretive Data - Cocaine: ??Samples containing greater than 150 ng/mL benzoylecgonine or other cross-reacting compounds are reported as positive. False positive and false negative results are possible. Current Interpretive Data was last reviewed 2018. Fentanyl, Ur Not Detected Cutoff 1 ng/mL [facility] Comment: Interpretive Data - Fentanyls: ??Samples containing greater than 1 ng/mL fentanyl or other cross-reacting fentanyl compounds are reported as detected. ??False positive and false negative results are possible. Current Interpretive Data was last reviewed 2019. Methadone, ur Not Detected CutOff 300ng/mL [facility] Comment: Interpretive Data - Methadone: ??Samples containing greater than 300 ng/mL d,l-methadone or other cross-reacting compounds are reported as positive. ??False positive and false negative results are possible. Current Interpretive Data was last reviewed 2018. Opiates, ur Not Detected CutOff 300ng/mL [facility] Comment: Interpretive Data - Opiates: ??Samples containing greater than 300 ng/mL morphine or other cross-reacting compounds are reported as positive. ??False positive and false negative results are possible. Current Interpretive Data was last reviewed 2018. Oxycodone, ur Not Detected CutOff 100ng/mL [facility] Comment: Interpretive Data - Oxycodone: ??Samples containing greater than 100 ng/mL oxycodone or other cross-reacting compounds are reported as positive. ??False positive and false negative results are possible. ?? Current Interpretive Data was last reviewed 2018. Phencyclidine, ur Not Detected CutOff 25 ng/mL [facility] Comment: Interpretive Data - Phencyclidine: ??Samples containing greater than 25 ng/mL phencyclidine or other cross-reacting compounds are reported as positive. ??False positive and false negative results are possible. ?? Current Interpretive Data was last reviewed 2018. Urine Creatinine 76 mg/dL [facility] Comment: Interpretive Data Urine Creatinine: < 10 mg/dL is extremely dilute = or > 10 but < 20 mg/dL is dilute = or > 20 mg/dL is normal Current Interpretive Data was last revised on 2017. Urine 11/27/2020 10:3 2 AM CDT 11/27/2020 10:32 AM CDT Narrative [facility] - 11/27/2020 11:00 AM CDT Drug of Abuse screening is performed by immunoassay for medical purposes only. ??This is not to be used for Pain Management purposes. ??If Detected, confirmation testing will be performed for Amphetamines, Cocaine, Fentanyl, Methadone, Opiates, Oxycodone or Phencyclidine. Andi Eugene MD LAB URINE ORDERAB LES Final Result [facility] [address] Department [place] [address] documented in this encounter Visit Diagnoses Diagnosis Illicit drug use- Primary Illicit drug use documented in this encounter Care Teams Human Resource Intern Relationship Specialty Start Date End Date Vicky Galindo MD PCP - General 11/16/20 06/02/24 documented as of this encounter
--- OUTSIDE RECORDS SUMMARY | 2024-07-20 19:49 | XMS_ITS | Encounter Summary ---
Author Organization 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
--- OUTSIDE RECORDS SUMMARY | 2024-07-20 19:49 | XMS_ITS | Encounter Summary ---
Author Organization [facility] Address [address] [place] [address] Care Team Providers Care Tunnel Worker Name Role Phone Baljeet Doran MD Primary Care Provider +1- [phone] Encounter Details Date Type Department Care Team (Latest Contact Info) Description 11/05/2020 3:37 PM CDT - 11/05/2020 3:39 PM CDT Hospital Encounter [facility] [address] [place] [address] Discharge Disposition: Discharge to home or self care Social History Tobacco Use Types Packs/Day Years Used Date Smoking Tobacco: Never Smokeless Tobacco: Never Sex and Gender Information Value Date Recorded Sex Assigned at Not on file 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 ??There will be no report generated by a [facility] Radiologist. Narrative [facility] - 11/05/2020 3:37 PM CDT EXAMINATION: ??Images For Reference Purposes Only Andi Eugene MD IMG XR PROCEDURES Final Result [facility] documented in this encounter Visit Diagnoses Not on filedocumented in this encounter Care Teams Tunnel Worker Relationship Specialty Start Date End Date Baljeet Doran MD [address] [address] PCP - General Family Medicine 11/04/20 11/15/20 documented as of this encounter
--- OUTSIDE RECORDS SUMMARY | 2024-07-20 19:49 | XMS_ITS | Encounter Summary ---
Author Organization [facility] Address [address] [place] [address] Phone Care Team Providers Care Preparer Making Department Name Role Phone Baljeet Doran MD Primary Care Provider + [phone] Vicky Galindo MD Primary Care Provider + [phone] Bear Cruz MD Primary Care Provider [phone] Encounter Details Date Type Department Care Team (Late st Contact Info) Description 11/12/2020 Documentation [facility] Orthopaedic Surgery [address] [facility] Advanced [facility] 12th [place] [address] [place] [address] Ilene Dong RN Social History Tobacco Use Types Packs/Day Years Used Date Smoking Tobacco: Never Smokeless Tobacco: Never Sex and Gender Information Value Date Recorded Sex Assigned at Not on file 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 Gender Identity Not on file Sexual Orientation Straight 11/28/2020 9: 06 AM CDT documented as of this encounter Plan of Treatment Not on file documented as of this encounter Visit Diagnoses Not on filedocumented in this encounter Care Teams Preparer Making Department Relationship Specialty Start Date End Date Baljeet Doran MD [address] [facility] [address] [place] [address] PCP - General Family Medicine 11/04/20 11/15/20 Vicky Galindo MD [address] [facility] [address] [place] [address] PCP - General 11/16/20 06/02/24 Bear Cruz MD [address] [facility] [address] [place] [address] PCP - General Emergency Medicine 06/03/24 documented as of this encounter
--- OUTSIDE RECORDS SUMMARY | 2024-07-20 19:49 | XMS_ITS | Encounter Summary ---
Author Organization [facility] Address [address] [place] [address] Phone Care Team Providers Care Clinical Massage Therapist Name Role Phone Vicky Galindo MD Primary Care Provider +1- [phone] Encounter Details Date Type Department Care Team (Late st Contact Info) Description 12/25/2020 Orders Only [facility] Orthopaedic Surgery [address] [facility] 12th [place] [address] [place] [address] Andi Eugene MD [address] [facility] [address]6B[address]A [place], [place] [id number] Closed displaced fracture of acromial end of right clavicle, sequela (Primary Dx) Social History Tobacco Use Types Packs/Day Years Used Date Smoking Tobacco: Never Smokeless Tobacco: Never Sex and Gender Information Value Date Recorded Sex Assigned at Not on file 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
--- OUTSIDE RECORDS SUMMARY | 2024-07-20 19:49 | XMS_ITS | Encounter Summary ---
Author Organization [facility] Address [address] [place] [address] Phone Care Team Providers Care Registered Dental Hygienist Name Role Phone Vicky Galindo MD Primary Care Provider +1- [phone] Reason for Referral * Diagnostic Imaging (Routine) - Closed Specialty Diagnoses / Procedures Referred By Keny t Referred To Contact Diagnoses Closed displaced fracture of acromial end of right clavicle, sequela Procedures XR Clavicle Right Andi Eugene MD [address] [facility] [place] [address] Phone: tel: fax: [address] [address] Referral ID Status Reason Start Date Expiration Date Visits Re quested Visits Authorized [id number] Closed 11/27/2020 12/27/2021 1 1 Encounter Details Date Type Department Care Team (Late st Contact Info) Description 11/27/2020 Orders Only [facility] Orthopaedic Surgery [address] [facility] 12th [place] [address] [place] [address] Andi Eugene MD [address] [facility] [address] [place] [address] Closed displaced fracture of acromial end of right clavicle, sequela (Primary Dx) Social History Tobacco Use Types Packs/Day Years Used Date Smoking Tobacco: Never Smokeless Tobacco: Never Sex and Gender Information Value Date Recorded Sex Assigned at Not on file 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
--- OUTSIDE RECORDS SUMMARY | 2024-07-20 19:49 | XMS_ITS | Encounter Summary ---
Author Organization [facility] Address [address] [place] [address] Care Team Providers Care Promotions Firm Accounts Manager Name Role Phone Baljeet Doran MD Primary Care Provider +1- [phone] Encounter Details Date Type Department Care Team (Latest Contact Info) Description 11/05/2020 3:40 PM CDT - 11/05/2020 11:59 PM CDT Hospital Encounter [facility] [address] [place] [address] Discharge Disposition: Discharge to home or self care Social History Tobacco Use Types Packs/Day Years Used Date Smoking Tobacco: Never Smokeless Tobacco: Never Sex and Gender Information Value Date Recorded Sex Assigned at Not on file 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 ??There will be no report generated by a [facility] Radiologist. Narrative [facility] - 11/05/2020 3:40 PM CDT EXAMINATION: ??Images For Reference Purposes Only Andi Eugene MD IMG XR PROCEDURES Final Result [facility] documented in this encounter Visit Diagnoses Not on filedocumented in this encounter Care Teams Promotions Firm Accounts Manager Relationship Specialty Start Date End Date Baljeet Doran MD [address] [address] PCP - General Family Medicine 11/04/20 11/15/20 documented as of this encounter
--- OUTSIDE RECORDS SUMMARY | 2024-07-20 19:49 | XMS_ITS | Encounter Summary ---
Author Organization [facility] Address [address] [place] [address] Care Team Providers Care Leak Detection Engineer Name Role Phone Vicky Galindo MD Primary Care Provider +- [phone] Reason for Visit * Reason Onset Date Comments No Show 12/29/2020 called patient n o answer Encounter Details Date Type Department Care Team (Late st Contact Info) Description 12/29/2020 Documentation [facility] Physical Therapy [address] [place] [id number] Idalmis Padilla PTA No Show (called patient no answer) Social History Tobacco Use Types Packs/Day Years Used Date Smoking Tobacco: Never Smokeless Tobacco: Never Sex and Gender Information Value Date Recorded Sex Assigned at Not on file 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
--- OUTSIDE RECORDS SUMMARY | 2024-07-20 19:49 | XMS_ITS | Encounter Summary ---
Author Organization [facility] Healthcare Address [address] [place] [address] Care Team Providers Care Fitting Room Associate Name Role Phone Unavailable Primary Care Provider Unavailabl e Encounter Details Date Type Department Care Team (Latest Contact Info) Description 10/25/2015 1:13 AM CDT - 10/25/2015 4:24 AM CDT Hospital Encounter [facility] Ish Louis MD [address] [place] [address] Other psychoactive substance abuse, uncomplicated Social History Tobacco Use Types Packs/Day Years Used Date Smoking Tobacco: Never Assessed Sex and Gender Information Value Date Recorded Sex Assigned at Not on file 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 Gender Identity Not on file Sexual Orientation [...] ORDERABLES Nettie l Result Performing Organization Address [facility] Co de Phone Number [facility] HISTORICAL RESULTS * (ABNORMAL) Acetaminophen level (10/25/2015 [...] ORDERABLES Nettie l Result Performing Organization Address City/[facility]/ZIP Co de Phone Number [facility] HISTORICAL RESULTS * Ethanol (10/25/2015 3:09 AM CDT) Ethyl Alcohol < 10 mg/dL Comment:% = mg/dL x .001 10/25/2015 3:09 AM CDT 10/25/2015 3:13 AM CDT us Ish Harvey MD LAB BLOOD ORDERABLES Nettie l Result [facility] HISTORICAL RESULTS * (ABNORMAL) Comprehensive metabolic panel [...] GFR (Cockcroft-G) 137 ml/MIN 10/25/2015 3:[address] [facility] [employer] HISTORICAL RESULTS Calcium 9.0 8.6 - 10.0 mg/dL 10/25/2015 3:[address] [facility] [employer] HISTORICAL RESULTS Total Protein 6.7 6.4 - 8.3 g/dL 10/25/2015 3:[address] [facility] [employer] HISTORICAL RESULTS Albumin 4.1 3.5 - 5.2 g/dL 10/25/2015 3:[address] [facility] [employer] [facility] HISTORICAL RESULTS Globulin 2.6 2.3 - 3.5 gm/dL 10/25/2015 3:[address] [facility] [employer] HISTORICAL RESULTS Albumin/Globulin Ratio 1.6 1.1 - 1.8 10/25/2015 3:[address] [facility] [employer] [facility] HISTORICAL RESULTS Total Bilirubin 0.5 0.0 - 1.2 mg/dL 10/25/2015 3:38 AM [employer] HISTORICAL RESULTS AST 26 0 - 40 U/L 10/25/2015 3:[address] [facility] [employer] HISTORICAL RESULTS ALT 27 0 - 41 U/L 10/25/2015 3:[address] [facility] [employer] [facility] HISTORICAL RESULTS Alkaline Phosphatase 80 40 - 129 U/L 10/25/2015 3:38 AM [facility] [employer] [facility] HISTORICAL RESULTS 10/25/2015 3:09 AM CDT 10/25/2015 3:13 AM CDT Narrative [facility] HISTORICAL RESULTS - 10/25/2015 3:38 AM CDT Comment Glucose, blood, POC Ish Harvey MD LAB BLOOD ORDERABLES Nettie l Result [facility] HISTORICAL RESULTS * (ABNORMAL) CBC with auto differential (10/25/2015 3:09 AM CDT) [facility] WBC 8.9 4.6 - 10.2 x10 [...] Lymph % 19.6 5.0 - 45.0 % [place] % 8.3 3.0 - 15.0 % Eos [...] MD LAB BLOOD ORDERABLES Nettie l Result [facility] HISTORICAL RESULTS * (ABNORMAL) Drug Screen, Urine (10/25/2015 2:55 AM CDT) [facility] Ur Amphetamine Screen POSITIVE(H) NEGATIVE Comment: [place]: 33710/25/15 by: [id number] to:YANELI LONGORIA RN ?? CONFIRMATION on Positive [...] NEGATIVE Comment: [place]ED at: 33710/25/15 by: [id number] to:YANELI LONGORIA RN ?? CONFIRMATION on Positive result requested:NO Cutoff limit: 300 ng/mL U Cannabinoids Screen NEGATIVE NEGATIVE Comment:Cutoff Limit: 50 ng/ mL U Cocaine Metab Screen NEGATIVE NEGATIVE Comment:Cutoff limit: 300 ng /mL Urine Opiates Screen POSITIVE(H) NEGATIVE Comment: [place] CALLED at: 33710/25/15 by: [id number] to:YANELI LONGORIA RN ?? CONFIRMATION on Positive result requested:NO Cutoff Limit: ??300 ng/mL Detects Morphine, Codeine, Ethyl Morphine, ?Diacetylmorphine, 6-Acetylmorphine, Dihydrocodeine, ?[id number] and Hydrocodone Ur Oxycodone Screen NEGATIVE NEGATIVE Comment:Cutoff Limit: 100 ng /mL Urine Creatinine/MARTELL 188.0 mg/dL Comment:If Creatinine is < 4 0 mg/dL, recollection is suggested. 10/25/2015 2:55 AM CDT 10/25/2015 3:01 AM CDT Narrative [facility] HISTORICAL RESULTS - 10/25/2015 3:32 AM CDT Collected By [facility] us Ish Harvey MD LAB URINE ORDERABLES Nettie pierre Result [facility] HISTORICAL RESULTS documented in this encounter Visit Diagnoses Diagnosis Other psychoactive substance abuse, uncomplicated (HCC) documented in this encounter
--- OUTSIDE RECORDS SUMMARY | 2024-07-20 19:49 | XMS_ITS | Referral Summary ---
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 Social History Tobacco [...] on file Legal Sex Male 6:06 AM 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 Gender Identity Not on file Sexual Orientation Straight 11/28/2020 9: 06 AM CDT Last Filed Vital Signs Vital Sign Reading Time Taken Comments Blood Pressure 145/100 06/03/2024 5:25 PM LEGAL 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 Pulse 84 06/03/2024 5:25 PM LEGAL 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 Temperature 36.7 ??C (98 ??F) 06/03/2024 3:42 PM LEGAL 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 Respiratory Rate 18 06/03/2024 5:25 PM LEGAL 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 Oxygen Saturation 100% 06/03/2024 5:25 PM LEGAL 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 Inhaled Oxygen Concentration - - Weight 89 kg (196 lb 3.4 oz) 06/03/2024 3:42 PM LEGAL 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 Height 175.3 cm (5' 9 ) 06/03/2024 3:42 PM LEGAL 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 Body Mass Index 28.98 06/03/2024 3:42 PM LEGAL 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 Plan of Treatment Not on file Procedures [...] to request sample to be sent to [facility] for Hepatitis C Virus (HCV) RNA Detection and Quantitation by Real-Time Reverse Golf Course Patroller-PCR (RT-PCR). Current interpretive data was last revised [...] Most Recently Relevant to Health Maintenance [facility] Care Teams Change Person Relationship Specialty Start Date End Date Bear Cruz MD [address] [address] PCP - General Emergency Medicine 06/03/24
--- OUTSIDE RECORDS SUMMARY | 2024-07-20 19:49 | XMS_ITS | Encounter Summary ---
Author Organization [facility] Healthcare Address [address] [place] [address] Care Team Providers Care Facilities Locator Name Role Phone Unavailable Primary Care Provider Unavailabl e Encounter Details Date Type Department Care Team (Latest Contact Info) Description 06/03/2014 8:08 PM BANJO REPAIRER - 06/04/2014 3:01 AM BANJO REPAIRER Hospital Encounter [facility] Kelly Reaves MD [address] [facility] [place] [address] Poisoning by drug or medicinal substance; Altered mental status; Accidental poisoning by drug Social History Tobacco Use Types Packs/Day Years Used Date Smoking Tobacco: Never Assessed Sex and Gender Information Value Date Recorded Sex Assigned at Not on file Legal Sex Male 6:06 AM BANJO REPAIRER Gender Identity Not on file Sexual Orientation Straight 11/28/2020 9: 06 AM CDT documented as of this encounter Last Filed Vital Signs Vital Sign Reading Time Taken Comments Blood Pressure 134/73 06/03/2014 8:08 PM BANJO REPAIRER Pulse 83 06/03/2014 8:08 PM BANJO REPAIRER Temperature 37.6 ??C (99.6 ??F) 06/03/2014 8:08 PM CS T Respiratory Rate - - Oxygen Saturation 96% 06/03/2014 8:08 PM BANJO REPAIRER Inhaled Oxygen Concentration - - Weight 107 kg (235 lb 14.3 oz) 06/03/2014 8:08 P M BANJO REPAIRER Height 172.7 cm (5' 8 ) 06/03/2014 8:08 PM BANJO REPAIRER Body Mass Index 35.87 06/03/2014 8:08 PM BANJO REPAIRER documented in this encounter Plan of Treatment Not on file documented as of this encounter Procedures Procedure Name Priority Date/Time Associated Diagnosis Comments HEMOGRAM WITH MANUAL DIFFERENTIAL Routine 06/03/2014 8:49 PM BANJO REPAIRER ETHANOL Routine 06/03/2014 8:49 PM BANJO REPAIRER ACETAMINOPHEN LEVEL Routine 06/03/2014 8 :49 PM BANJO REPAIRER SALICYLATE LEVEL Routine 06/03/2014 8:49 PM BANJO REPAIRER COMPREHENSIVE METABOLIC PANEL Routine 06/03/2014 8:49 PM BANJO REPAIRER UA WITH CULTURE REFLEX Routine 4 8:16 PM BANJO REPAIRER DRUGS OF ABUSE SCREEN, URINE WITHOUT CONFIRMATION Routine 06/03/2014 8:16 PM BANJO REPAIRER XR CHEST 1 VIEW Routine 06/03/2014 12:00 AM BANJO REPAIRER documented in this encounter Results * (ABNORMAL) Hemogram with manual differential (06/03/2014 8:49 PM BANJO REPAIRER) WBC 24.3(H) 4.6 - 10.2 x10 3/ul 06/03/2014 8:58 PM BANJO REPAIRER [employer] HISTORICAL RESULTS RBC 4.92 4.11 - 5.71 x10 6/ul 06/03/2014 8:58 PM BANJO REPAIRER [employer] HISTORICAL RESULTS Hemoglobin 14.5 13.0 - 17.0 g/dl 06/03/2014 8:58 PM BANJO REPAIRER [employer] HISTORICAL RESULTS Hct 42.1 38.2 - 48.5 % 06/03/2014 8:58 PM BANJO REPAIRER [employer] HISTORICAL RESULTS MCV 85.6 80.0 - 97.0 fl 06/03/2014 8:58 PM BANJO REPAIRER [employer] HISTORICAL RESULTS MCH 29.5 27.0 - 31.2 pg 06/03/2014 8:58 PM BANJO REPAIRER [employer] HISTORICAL RESULTS MCHC 34.4 31.8 - 35.4 g/dl 06/03/2014 8:58 PM BANJO REPAIRER [employer] HISTORICAL RESULTS RDW 12.3 11.6 - 14.8 % Plt Count 227 124 - 400 x10 3/ul MPV 9.6 7.4 - 10.4 fl Differential Method AUTOMATED DIFF --------- -- Neut % 88.6(H) 37.0 - 85.0 % Immature Gran % 0.5 0.0 - 3.0 % Lymph % 5.1 5.0 - 45.0 % [place] % 4.8 3.0 - 15.0 % Eos [...] - 0.2 x10 3/ul 06/03/2014 8:58 PM BANJO REPAIRER [facility] HISTORICAL RESULTS Platelet Evaluation AGREE AGREE Comment:Slide review of plat elets correlates with instrument count. RBC Morphology NORMAL NORMAL 06/03/2014 8:49 PM BANJO REPAIRER 06/03/2014 8:55 PM BANJO REPAIRER us Kelly Reaves MD LAB BLOOD ORDERABLES Nettie l Result Performing Organization Address [facility] Co de Phone Number [facility] HISTORICAL RESULTS * Salicylate level (06/03/2014 8:49 PM BANJO REPAIRER) Salicylates < 1 0 - 29 mg/dL 06/03/2014 9:19 PM BANJO REPAIRER [facility] HISTORICAL RESULTS 06/03/2014 8:49 PM BANJO REPAIRER 06/03/2014 8:55 PM BANJO REPAIRER Kelly Reaves MD LAB BLOOD ORDERABLES Nettie l Result Performing Organization Address [facility] Co de Phone Number [facility] HISTORICAL RESULTS * Ethanol (06/03/2014 8:49 PM BANJO REPAIRER) Ethyl Alcohol < 10 mg/dL 06/03/2014 9:18 PM BANJO REPAIRER [facility] HISTORICAL RESULTS Comment:% = mg/dL x .001 06/03/2014 8:49 PM BANJO REPAIRER 06/03/2014 8:55 PM BANJO REPAIRER us Kelly Reaves MD LAB BLOOD ORDERABLES Nettie l Result Performing Organization Address [facility] Co de Phone Number [facility] HISTORICAL RESULTS * (ABNORMAL) Comprehensive metabolic panel (06/03/2014 8:49 PM BANJO REPAIRER) Sodium 136 135 - 145 mmol/L 06/03/2014 9:18 PM BANJO REPAIRER [facility] HISTORICAL RESULTS Potassium 4.2 3.3 - 5.1 [...] 40 - 129 U/L 06/03/2014 8:49 PM BANJO REPAIRER 06/03/2014 8:55 PM BANJO REPAIRER Kelly Reaves MD LAB BLOOD ORDERABLES Nettie l Result Performing Organization Address [facility] de Phone Number [facility] HISTORICAL RESULTS * Acetaminophen level (06/03/2014 8:49 PM BANJO REPAIRER) Pathologist [facility] Acetaminophen < 15.0 10.0 - 30.0 ug/mL Comment: Acetaminophen concentrations greater than 200 ug/mL at four hours after ingestion and greater than 50 ug/mL at 12 hours after ingestion are often associated with toxicity. 06/03/2014 8:49 PM BANJO REPAIRER 06/03/2014 8:55 PM BANJO REPAIRER Kelly Reaves MD LAB BLOOD ORDERABLES Nettie l Result Performing Organization Address [facility] de Phone Number [facility] HISTORICAL RESULTS * (ABNORMAL) Drug Screen, Urine (06/03/2014 8:16 PM BANJO REPAIRER) Ur Amphetamine Screen NEGATIVE NEGATIVE Comment: Cutoff Limit: ??1000 ng/mL Note: ??Positive results from this drug screen are unconfirmed. ??Unconfirmed screening results should not be used for non-medical purposes. Ur Barbiturates Screen NEGATIVE NEGATIVE Comment:Cutoff limit: 200 ng /mL U Benzodiazepines Scrn POSITIVE(H) NEGATIVE 06/03/2014 9:22 PM BANJO REPAIRER [facility] HISTORICAL RESULTS Comment: RESULT CALLED at: 211306/03/14 by: [id number] to: LUIZ JANSEN ?? CONFIRMATION on Positive result requested:NO Cutoff limit: 300 ng/mL U Cannabinoids Screen NEGATIVE NEGATIVE Comment:Cutoff Limit: 50 ng/ mL U Cocaine Metab Screen NEGATIVE NEGATIVE Comment:Cutoff limit: 300 ng /mL Urine Opiates Screen POSITIVE(H) NEGATIVE Comment: RESULT CALLED at: 212106/03/14 by: [id number] to: LUIZ JANSEN ?? CONFIRMATION on Positive result requested:NO Cutoff Limit: ??300 ng/mL Urine Creatinine/MARTELL 218.0 mg/dL Comment:If Creatinine is < 4 0 mg/dL, recollection is suggested. 06/03/2014 8:16 PM BANJO REPAIRER 06/03/2014 8:33 PM BANJO REPAIRER Narrative [facility] HISTORICAL RESULTS - 06/03/2014 9:13 PM BANJO REPAIRER Collected By kjw ?? 825 us Kelly Reaves MD LAB URINE ORDERABLES Nettie l Result [facility] HISTORICAL RESULTS * (ABNORMAL) UA with Culture Reflex (06/03/2014 8:16 PM BANJO REPAIRER) Ur Collection Type STRAIGHT CATH 06/03/2014 9:52 PM BANJO REPAIRER [facility] HISTORICAL RESULTS Ur Culture Indicated? C&S NOT INDICATED Urine Color YELLOW YELLOW Urine Clarity CLEAR CLEAR Urine Glucose (UA) 300(H) NORMAL mg/dL Urine Bilirubin NEGATIVE NEGATIVE mg/dl Urine Ketones NEGATIVE NEGATIVE mg/dL Ur Specific [place] 1.018 1.005 - 1.025 Urine Blood NEGATIVE NEGATIVE mg/dl Urine pH 5.0 5.0 - 8.0 Urine Protein 10(H) NEGATIVE mg/dL Urine Urobilinogen NORMAL NORMAL mg/dL Urine Nitrite NEGATIVE NEGATIVE Ur Leukocyte Esterase NEGATIVE NEGATIVE Gokul/ul Ur Microscopic Review Not Indicated 06/03/2014 8:16 PM BANJO REPAIRER 06/03/2014 8:33 PM BANJO REPAIRER Kelly Reaves MD LAB URINE ORDERABLES Nettie pierre Result [facility] HISTORICAL RESULTS * XR Chest 1 View (06/03/2014 12:00 AM BANJO REPAIRER) Anatomical Region Laterality Modality Body, Chest N/A Radiographic Ree ging 06/03/2014 Impressions 06/03/2014 10:10 PM BANJO REPAIRER ??No active chest disease. THIS IS AN ELECTRONICALLY VERIFIED REPORT 06/03/2014 10:07 PM: ??Thom Asencio M.D. Thom Asencio M.D. RN:danilo 10:07 PM 10:07 PM NOR [EOD] Narrative 06/03/2014 10:10 PM BANJO REPAIRER CHEST SINGLE VIEW HISTORY: ??Altered consciousness with [...]
--- OUTSIDE RECORDS SUMMARY | 2024-07-20 19:49 | XMS_ITS | Encounter Summary ---
Author Organization [facility] Address [address] [place] [address] Phone Care Team Providers Care Film Cleaner Name Role Phone Baljeet Doran MD Primary Care Provider [phone] Vicky Galindo MD Primary Care Provider [phone] Reason for Referral * Diagnostic Imaging (Routine) - Closed Specialty Diagnoses / Procedures Referred By Contac t Referred To Contact Diagnoses Closed displaced fracture of acromial end of right clavicle, sequela Procedures XR Clavicle Right Andi Eugene MD [address] [place] [address] Phone: tel: fax: [facility] [address] [place] [address] Referral ID Status Reason Start Date Expiration Date Visits Re quested Visits Authorized [id number] Closed 11/13/2020 12/13/2021 1 1 Encounter Details Date Type Department Care Team (Late st Contact Info) Description 11/13/2020 Orders Only [facility] Orthopaedic Surgery [address] [facility] [address] [place] [address] [place] [address] Andi Eugene MD [address] [facility] [place] [place] [address] Closed displaced fracture of acromial end of right clavicle, sequela (Primary Dx) Social History Tobacco Use Types Packs/Day Years Used Date Smoking Tobacco: Never Smokeless Tobacco: Never Sex and Gender Information Value Date Recorded Sex Assigned at Not on file Legal 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
--- OUTSIDE RECORDS SUMMARY | 2024-07-20 19:49 | XMS_ITS | Encounter Summary ---
Author Organization [facility] Address [address] [place] [address] Phone Care Team Providers Care Automobile Upholsterer Name Role Phone Baljeet Doran MD Primary Care Provider [phone] Encounter Details Date Type Department Care Team (Late st Contact Info) Description 11/04/[address] [facility] Orthopaedic Surgery [address] [facility] 12th [place] [address] [place] [address] Andi Eugene MD [address] 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
--- OUTSIDE RECORDS SUMMARY | 2024-07-20 19:49 | XMS_ITS | Encounter Summary ---
Author Organization [facility] Address [address] [place] [address] Phone Care Team Providers Care Utility Tractor Operator Name Role Phone Vicky Galindo MD Primary Care Provider [phone]- [phone] Reason for Visit * Reason Comments Follow-up Encounter Details Date Type Department Care Team (Late st Contact Info) Description 11/30/2020 8:15 AM CDT Office Visit [facility] Orthopaedic Surgery [address] [facility] 2nd Floor [address] [place] [address] Andi Eugene MD [address] [facility] [address] [place] [address] Closed displaced fracture of acromial end of right clavicle, sequela (Primary Dx) Social History Tobacco Use Types Packs/Day Years Used Date Smoking Tobacco: Never Smokeless Tobacco: Never Sex and Gender Information Value Date Recorded Sex Assigned at Not on file Legal 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 Glove Factory Sewer variances may occur. documented in this encounter Plan of Treatment Not on file documented as of this encounter Visit Diagnoses Diagnosis Closed displaced fracture of acromial end of right clavicle, sequela- Primary documented in this encounter Care Teams Utility Tractor Operator Relationship Specialty Start Date End Date Vicky Galindo MD PCP - General 11/16/20 06/02/24 documented as of this encounter
--- OUTSIDE RECORDS SUMMARY | 2024-07-20 19:49 | XMS_ITS | Encounter Summary ---
Author Organization [facility] Healthcare Address [address] [place] [address] Care Team Providers Care Dental Office Assistant Name Role Phone Vicky Galindo MD Primary Care Provider [phone]- [phone] Reason for Referral * Diagnostic Imaging (Routine) - Closed Specialty Diagnoses / Procedures Referred By Keny kunz Referred To Contact Diagnoses Closed displaced fracture of acromial end of right clavicle, sequela Procedures XR Clavicle Right Andi Eugene MD [address] [place] [address] Phone: tel: fax: [address] [address] Referral ID Status Reason Start Date Expiration Date Visits Re quested Visits Authorized [id number] Closed 11/27/2020 12/27/2021 1 1 Reason for Visit * Diagnostic Imaging (Routine) - Closed Specialty Diagnoses / Procedures Referred By Keny kunz Referred To Contact Diagnoses Closed displaced fracture of acromial end of right clavicle, sequela Procedures XR Clavicle Right Andi Eugene MD [address] [place] [address] Phone: tel: fax: [address] [address] Referral ID Status Reason Start Date Expiration Date Visits Re quested Visits Authorized [id number] Closed 11/27/2020 12/27/2021 1 1 Encounter Details Date Type Department Care Team (Latest Contact Info) Description 11/30/2020 8:11 AM CDT - 11/30/2020 11:59 PM CDT Hospital Encounter [facility] [address] [place] [address] Andi Eguene MD [address] [facility] [address] [place] [address] Closed displaced fracture of acromial end of right clavicle, sequela Discharge Disposition: Discharge to home or self care Social History Tobacco Use Types Packs/Day Years Used Date Smoking Tobacco: Never Smokeless Tobacco: Never Sex and Gender Information Value Date Recorded Sex Assigned at Not on file 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
--- OUTSIDE RECORDS SUMMARY | 2024-07-20 19:49 | XMS_ITS | Encounter Summary ---
Author Organization [facility] Address [address] [place] [address] Phone Care Team Providers Care It Recruiter Name Role Phone Vicky Galindo MD Primary Care Provider [phone]- [phone] Reason for Referral * Diagnostic Imaging (Routine) - Closed Specialty Diagnoses / Procedures Referred By Keny t Referred To Contact Diagnoses Right shoulder pain, unspecified chronicity Procedures XR Shoulder Right 2 or More Views Andi Eugene MD [address] [place] [address] Phone: tel: fax: [address] [address] Referral ID Status Reason Start Date Expiration Date Visits Re quested Visits Authorized [id number] Closed 11/16/2020 12/16/2021 1 1 Encounter Details Date Type Department Care Team (Late st Contact Info) Description 11/16/2020 11:15 AM CDT Office Visit [facility] Orthopaedic Surgery [address] [facility] 2nd [address] [place] [address] Andi Eugene MD [address] [place] [address] Closed displaced fracture of acromial end of right clavicle, initial encounter (Primary Dx); Right shoulder pain, unspecified chronicity; Illicit drug use Social History Tobacco Use Types Packs/Day Years Used Date Smoking Tobacco: Never Smokeless Tobacco: Never Sex and Gender Information Value Date Recorded Sex Assigned at Not on file 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 Funeral Service Manager variances may occur. documented in this encounter Plan of Treatment Not on file documented as of this encounter Results * (ABNORMAL) Drugs of Abuse Screen, Urine with Reflex Confirmation (11/16/2020 1:21 PM CDT) Amphetamine, ur Detected(A) CutOff 500ng/mL [facility] Comment: Interpretive Data - Amphetamines: ??Samples containing greater than 500 ng/mL d-methamphetamine ??or other cross-reacting amphetamine compounds are reported as positive. ??Amphetamine immunoassays are subject to significant false positive rates due to cross-reactivity of non-amphetamine drugs. Current Interpretive Data was last reviewed 2018. Barbiturates, ur Detected(A) CutOff 200ng/mL [facility] Comment: Interpretive Data - Barbiturates: ??Samples containing greater than 200 ng/mL secobarbital or other cross-reacting barbiturate compounds are reported as positive. ??False positive and false negative results are possible. Current Interpretive Data was last reviewed 2018. Benzodiazepines, ur Detected(A) CutOff 100ng/mL [facility] Comment: Interpretive Data - Benzodiazepines: ??Samples containing greater than 100 ng/mL nordiazepam or other cross-reacting compounds are reported as positive. ?? False positive and false negative results are possible. ?? Current Interpretive Data was last reviewed 2018. Cannabinoids, ur Not Detected CutOff 50 ng/mL [facility] Comment: Interpretive Data - Cannabinoids: ??Samples containing greater than 50 ng/mL delta-9 THC -COOH or other cross-reacting compounds are reported as positive. ??False positive and false negative results are possible. ?? Current Interpretive Data was last reviewed 2018. Cocaine, ur Not Detected CutOff 150ng/mL [facility] Comment: Interpretive Data - Cocaine: ??Samples containing greater than 150 ng/mL benzoylecgonine or other cross-reacting compounds are reported as positive. False positive and false negative results are possible. Current Interpretive Data was last reviewed 2018. Fentanyl, Ur Detected(A) Cutoff 1 ng/mL [facility] Comment: Interpretive Data - Fentanyls: ??Samples containing greater than 1 ng/mL fentanyl or other cross-reacting fentanyl compounds are reported as detected. ??False positive and false negative results are possible. Current Interpretive Data was last reviewed 2019. Methadone, ur Not Detected CutOff 300ng/mL [facility] Comment: Interpretive Data - Methadone: ??Samples containing greater than 300 ng/mL d,l-methadone or other cross-reacting compounds are reported as positive. ??False positive and false negative results are possible. Current Interpretive Data was last reviewed 2018. Opiates, ur Detected(A) CutOff 300ng/mL [facility] Comment: Interpretive Data - Opiates: ??Samples containing greater than 300 ng/mL morphine or other cross-reacting compounds are reported as positive. ??False positive and false negative results are possible. Current Interpretive Data was last reviewed 2018. Oxycodone, ur Not Detected CutOff 100ng/mL [facility] Comment: Interpretive Data - Oxycodone: ??Samples containing greater than 100 ng/mL oxycodone or other cross-reacting compounds are reported as positive. ??False positive and false negative results are possible. ?? Current Interpretive Data was last reviewed 2018. Phencyclidine, ur Not Detected CutOff 25 ng/mL [facility] Comment: Interpretive Data - Phencyclidine: ??Samples containing greater than 25 ng/mL phencyclidine or other cross-reacting compounds are reported as positive. ??False positive and false negative results are possible. ?? Current Interpretive Data was last reviewed 2018. Urine Creatinine 223 mg/dL [facility] Comment: Interpretive Data Urine Creatinine: < 10 mg/dL is extremely dilute = or > 10 but < 20 mg/dL is dilute = or > 20 mg/dL is normal Current Interpretive Data was last revised on 2017. Urine 11/16/2020 1:21 PM CDT 11/16/2020 2:26 PM CDT Narrative [facility] - 11/16/2020 3:03 PM CDT Drug of Abuse screening is performed by immunoassay for medical purposes only. ??This is not to be used for Pain Management purposes. ??If Detected, confirmation testing will be performed for Amphetamines, Cocaine, Fentanyl, Methadone, Opiates, Oxycodone or Phencyclidine. Andi Eugene MD LAB URINE ORDERAB LES Final Result [facility] [address] Department [place] [address] * XR Shoulder Right 2 or More Views (11/16/2020 11:34 AM CDT) Anatomical Region Laterality Modality Upper Extremities, Shoulder Right Comp uted Radiography 11/16/2020 11:5 6 AM CDT Impressions 11/16/2020 11:56 AM CDT Comminuted displaced and angulated right mid to distal clavicular fracture. Electronically signed by: Vishal Roajs M.D. Narrative 11/16/2020 11:56 AM CDT EXAMINATION: [...] use documented in this encounter Care Teams It Recruiter Relationship Specialty Start Date End Date Vicky Galindo MD PCP - General 11/16/20 06/02/24 documented as of this encounter
--- OUTSIDE RECORDS SUMMARY | 2024-07-20 19:49 | XMS_ITS | Encounter Summary ---
Author Organization [facility] Healthcare Address [address] [place] [address] Care Team Providers Care Early Childhood Coordinator Name Role Phone Vicky Galindo MD Primary Care Provider [phone]- [phone] Encounter Details Date Type Department Care Team (Late st Contact Info) Description 12/18/2020 7:43 AM CDT - 12/18/2020 11:59 PM CDT Hospital Encounter [facility] Andi Eugene MD [address] [facility] [address] [place] [address] Discharge Disposition: Discharge to home or self care Social History Tobacco Use Types Packs/Day Years Used Date Smoking Tobacco: Never Smokeless Tobacco: Never Sex and Gender Information Value Date Recorded Sex Assigned at Not on file 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
--- OUTSIDE RECORDS SUMMARY | 2024-07-20 19:49 | XMS_ITS | Encounter Summary ---
Author Organization [facility] Healthcare Address [address] [place] [address] Care Team Providers Care Ibm Bpm Developer Name Role Phone Bear Cruz MD Primary Care Provider [phone] Reason for Visit * Reason Comments Dental Pain Encounter Details Date Type Department Care Team (Late st Contact Info) Description 06/03/2024 3:56 PM FARM MACHINERY ENGINE MECHANIC - 06/03/2024 5:29 PM FARM MACHINERY ENGINE MECHANIC Emergency [facility] Emergency Department [address] [place] [address] Pain, dental (Primary Dx) Discharge Disposition: Discharge [...] on file Legal Sex Male 6:06 AM FARM MACHINERY ENGINE MECHANIC Gender Identity Not on file Sexual Orientation Straight 11/28/2020 9: 06 AM CDT documented as of this encounter Last Filed Vital Signs Vital Sign Reading Time Taken Comments Blood Pressure 145/100 06/03/2024 5:25 PM FARM MACHINERY ENGINE MECHANIC Pulse 84 06/03/2024 5:25 PM FARM MACHINERY ENGINE MECHANIC Temperature 36.7 ??C (98 ??F) 06/03/2024 3:42 PM FARM MACHINERY ENGINE MECHANIC Respiratory Rate 18 06/03/2024 5:25 PM FARM MACHINERY ENGINE MECHANIC Oxygen Saturation 100% 06/03/2024 5:25 PM FARM MACHINERY ENGINE MECHANIC Inhaled Oxygen Concentration - - Weight 89 kg (196 lb 3.4 oz) 06/03/2024 3:42 PM FARM MACHINERY ENGINE MECHANIC Height 175.3 cm (5' 9 ) 06/03/2024 3:42 PM FARM MACHINERY ENGINE MECHANIC Body Mass Index 28.98 06/03/2024 3:42 PM FARM MACHINERY ENGINE MECHANIC documented in this encounter Discharge Instructions * Discharge Instructions* Henny Valdez PA - 06/03/2024 5:13 PM FARM MACHINERY ENGINE MECHANIC 1) Finish full course of antibiotics even [...] fever, trouble swallowing/breathing orother new emergent concern MACHINERY ENGINE MECHANIC * Attachments The following attachments cannot be sent through Care Everywhere. * Toothache (AfterCare(R) Instructions(ER/ED)) (Irish) documented in this encounter Medications at Time [...] Disposition: DISPOSITION: Home Follow-Up: Bear Cruz MD [facility] [address] [address] [place] 06/03/2024 Henny Valdez PA 06/03/[id number] Cosigned by Iván Azevedo DO at 06/03/2024 6:11 PM FARM MACHINERY ENGINE MECHANIC MACHINERY ENGINE MECHANIC MACHINERY ENGINE MECHANIC * Stella Horowitz RN - 06/03/2024 3:38 PM CST About 1 hour ago was eating chicken wings and got severe pain left lower tooth MACHINERY ENGINE MECHANIC documented in this encounter Plan of Treatment [...] dose, Indications: PainIndications:Pain Given 06/03/2024 5:24 PM FARM MACHINERY ENGINE MECHANIC 1 tablet ibuprofen (ADVIL,MOTRIN) tablet/capsule 600 mg 600 mg, oral, Once, On 06/03/24 at 1712, For 1 dose Given 06/03/2024 5:24 PM FARM MACHINERY ENGINE MECHANIC 600 mg documented in this encounter Discontinued [...] Recently Administered Medications Times are shown in FARM MACHINERY ENGINE MECHANIC. Scheduled Medication Order 06/01/2024 06/02/2024 06/03/2024 HYDROcodone-acetaminophen [...] RN) documented in this encounter Care Teams Ibm Bpm Developer Relationship Specialty Start Date End Date Bear Cruz MD [address] [place] [id number] PCP - General Emergency Medicine 06/03/24 documented as of this encounter
--- OUTSIDE RECORDS SUMMARY | 2024-07-20 19:49 | XMS_ITS | Encounter Summary ---
Author Organization [facility] Healthcare Address [address] [place] [address] Care Team Providers Care Foreman/Project Manager Name Role Phone Vicky Galindo MD Primary Care Provider [phone] Encounter Details Date Type Department Care Team (Late st Contact Info) Description 11/27/2020 10:00 AM CDT Lab [address] [id number] Andi Eugene MD [address] 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 ??Amphetamine immunoassays are subject to significant false positive rates due to cross-reactivity of non-amphetamine drugs. Current Interpretive Data was last reviewed 2018. Barbiturates, ur Not Detected CutOff 200ng/mL [facility] Comment: Interpretive Data - Barbiturates: ??Samples containing greater than 200 ng/mL secobarbital or other cross-reacting barbiturate compounds are reported as positive. ??False positive and false negative results are possible. Current Interpretive Data was last reviewed 2018. Benzodiazepines, ur Not Detected CutOff 100ng/mL [facility] Comment: Interpretive Data - Benzodiazepines: ??Samples containing greater than 100 ng/mL nordiazepam or other cross-reacting compounds are reported as positive. ?? False positive and false negative results are possible. ?? Current Interpretive Data was last reviewed 2018. Cannabinoids, ur Not Detected CutOff 50 ng/mL [facility] Comment: Interpretive Data - Cannabinoids: ??Samples containing greater than 50 ng/mL delta-9 THC -COOH or other cross-reacting compounds are reported as positive. ??False positive and false negative results are possible. ?? Current Interpretive Data was last reviewed 2018. Cocaine, ur Not Detected CutOff 150ng/mL [facility] Comment: Interpretive Data - Cocaine: ??Samples containing greater than 150 ng/mL benzoylecgonine or other cross-reacting compounds are reported as positive. False positive and false negative results are possible. Current Interpretive Data was last reviewed 2018. Fentanyl, Ur Not Detected Cutoff 1 ng/mL [facility] Comment: Interpretive Data - Fentanyls: ??Samples containing greater than 1 ng/mL fentanyl or other cross-reacting fentanyl compounds are reported as detected. ??False positive and false negative results are possible. Current Interpretive Data was last reviewed 2019. Methadone, ur Not Detected CutOff 300ng/mL [facility] Comment: Interpretive Data - Methadone: ??Samples containing greater than 300 ng/mL d,l-methadone or other cross-reacting compounds are reported as positive. ??False positive and false negative results are possible. Current Interpretive Data was last reviewed 2018. Opiates, ur Not Detected CutOff 300ng/mL [facility] Comment: Interpretive Data - Opiates: ??Samples containing greater than 300 ng/mL morphine or other cross-reacting compounds are reported as positive. ??False positive and false negative results are possible. Current Interpretive Data was last reviewed 2018. Oxycodone, ur Not Detected CutOff 100ng/mL [facility] Comment: Interpretive Data - Oxycodone: ??Samples containing greater than 100 ng/mL oxycodone or other cross-reacting compounds are reported as positive. ??False positive and false negative results are possible. ?? Current Interpretive Data was last reviewed 2018. Phencyclidine, ur Not Detected CutOff 25 ng/mL [facility] Comment: Interpretive Data - Phencyclidine: ??Samples containing greater than 25 ng/mL phencyclidine or other cross-reacting compounds are reported as positive. ??False positive and false negative results are possible. ?? Current Interpretive Data was last reviewed 2018. Urine Creatinine 76 mg/dL [facility] Comment: Interpretive Data Urine Creatinine: < 10 mg/dL is extremely dilute = or > 10 but < 20 mg/dL is dilute = or > 20 mg/dL is normal Current Interpretive Data was last revised on 2017. Urine 11/27/2020 10:3 2 AM CDT 11/27/2020 10:32 AM CDT Narrative [facility] - 11/27/2020 11:00 AM CDT Drug of Abuse screening is performed by immunoassay for medical purposes only. ??This is not to be used for Pain Management purposes. ??If Detected, confirmation testing will be performed for Amphetamines, Cocaine, Fentanyl, Methadone, Opiates, Oxycodone or Phencyclidine. Andi Eugene MD LAB URINE ORDERAB LES Final Result [facility] [address] Department [place] [address] documented in this encounter Visit Diagnoses Diagnosis Illicit drug use documented in this encounter Care Teams Foreman/Project Manager Relationship Specialty Start Date End Date Vicky Galindo MD PCP - General 11/16/20 06/02/24 documented as of this encounter
--- OUTSIDE RECORDS SUMMARY | 2024-07-20 19:49 | XMS_ITS | Encounter Summary ---
Author Organization [facility] Address [address] [place] [address] Phone Care Team Providers Care Senior Marketing Associate Name Role Phone Baljeet Doran MD Primary Care Provider [phone]- [phone] Encounter Details Date Type Department Care Team (Late st Contact Info) Description 11/12/2020 Telephone [facility] Orthopaedic Surgery [address] [facility] 12th [place] [address] [place] [address] Andi Eugene MD [address] [facility] [address] [place] [address] Social History Tobacco Use Types Packs/Day Years Used Date Smoking Tobacco: Never Smokeless Tobacco: Never Sex and Gender Information Value Date Recorded Sex Assigned at Not on file Legal Sex Male 6:06 AM CRO Gender Identity Not on file Sexual Orientation Straight 11/28/2020 9: 06 AM CDT documented as of this encounter Miscellaneous Notes * Telephone Encounter - Ilene Dong RN - 11/12/2020 12:52 PM CDT Pt was scheduled to have a right distal clavicle ORIF this past Friday 11/10 at [facility]. RN was informed by pt's mother prior [...] informed RN that he was admitted to [facility] on Tuesday 11/07 after using heroin that [...] filedocumented in this encounter Care Teams Senior Marketing Associate Relationship Specialty Start Date End Date Baljeet Doran MD [address] [address] PCP - General Family Medicine 11/04/20 11/15/20 documented as of this encounter
--- OUTSIDE RECORDS SUMMARY | 2024-07-20 19:49 | XMS_ITS | Encounter Summary ---
Author Organization [facility] Address [address] [place] [address] Phone Care Team Providers Care Youth Advocate Name Role Phone Baljeet Doran MD Primary Care Provider [phone]- [phone] Reason for Visit * Reason Comments Pain Encounter Details Date Type Department Care Team (Late st Contact Info) Description 11/05/2020 12:45 PM CDT Office Visit 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 He landed on his right shoulder. He had immediate onset right shoulder pain. He went to the emergency room in [place], [place] where he was diagnosed with a distal clavicle fracture. Comes in today to discuss definitive management for this. He has been taking narcotic pain medications for pain. He is otherwise relatively healthy. 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 PAST MEDICAL HISTORY Past medical history includes [...] scheduled. FOLLOW-UP For surgery Andi Eugene MD Form Setter Helper of Orthopedic Surgery Shoulder and Elbow Service [facility] Dr. Chris Eugene dictating using Fluency Direct. Needle Loom Setter variances may occur. documented in this encounter [...] 11/10/2020 added in this encounter Care Teams Youth Advocate Relationship Specialty Start Date End Date Baljeet Doran MD [address] [facility] [address] [place] [address] PCP - General Family Medicine 11/04/20 11/15/20 documented as of this encounter
--- OUTSIDE RECORDS SUMMARY | 2024-07-20 19:49 | XMS_ITS | Encounter Summary ---
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, [address] [place]., [address] 6- Acetylmorphine Conf, Ur Does Not Confirm CutOff 10 ng/mL [facility] Comment:Testing performed by : [facility], [address] [place]., [address] Hydrocodone Conf, Ur Does Not Confirm CutOff 50 ng/mL [facility] Comment:Testing performed by : [facility], [address] [place]., [address] Morphine Conf, Ur Does Not Confirm CutOff 50 ng/mL [facility] Comment:Testing performed by : [facility], [address] [place]., [address] Hydromorphone Conf, Ur Does Not Confirm CutOff 50 ng/mL [facility] Comment: Interpretive Data This test detects the presence or absence of drug compounds using LC Tandem mass spectrometry and is not intended to assess compliance with prescribed medications. While this test is highly specific, false positive and false negative results may occur in very rare circumstances. Contact the laboratory for consultation, if needed. Performance characteristics were determined by the [facility] in a manner consistent with CLIA requirement and has not been cleared or approved by the U.S. Food and Drug Administration. Current interpretive data was last revised 2020. Testing performed by: [facility], [address] [place]., [address] Urine 11/16/2020 1:21 PM CDT 11/16/2020 7:39 PM CDT us Andi Eugene MD LAB URINE ORDERAB LES Final Result [facility] [address] Department [place] [address] * Fentanyl Confirmation, Urine (11/16/2020 1:21 PM CDT) Fentanyl Conf, Ur Does Not Confirm Cutoff 0.3ng/mL [facility] Comment:Testing performed by : [facility], [address] [place]., [address] Acetylfentanyl Conf, Ur Does Not Confirm Cutoff 1 ng/mL [facility] Comment:Testing performed by : [facility], [address] [place]., [address] Acrylfentanyl Conf, Ur Does Not Confirm Cutoff 1 ng/mL [facility] Comment:Testing performed by : [facility], [address] [place]., [address] Furanylfentanyl Conf, Ur Does Not Confirm Cutoff 1 ng/mL [facility] Comment:Testing performed by : [facility], [address] [place]., [address] Fentanyl Metabolite (Norfentanyl) Conf, Ur Does Not Confirm CutOff 5 ng/mL [facility] Comment: Interpretive Data This test detects the presence or absence of drug compounds using LC Tandem mass spectrometry and is not intended to assess compliance with prescribed medications. While this test is highly specific, false positive and false negative results may occur in very rare circumstances. Contact the laboratory for consultation, if needed. Performance characteristics were determined by the [facility] in a manner consistent with CLIA requirement and has not been cleared or approved by the U.S. Food and Drug Administration. Current interpretive data was last revised 2020. Testing performed by: [facility], [address] [place]., [address] Urine 11/16/2020 1:21 PM CDT 11/16/2020 7:39 PM CDT us Andi Eugene MD LAB URINE ORDERAB LES Final Result [facility] [address] Department [place] [address] * Amphetamine Confirmation, Urine (11/16/2020 1:21 PM CDT) Amphetamine Conf, Ur Confirmed Positive CutOff 150ng/mL [facility] Comment:Testing performed by : [facility], [address] [place]., [address] Methamphetamine Conf, Ur Confirmed Positive CutOff 150ng/mL [facility] Comment:Testing performed by : [facility], [address] [place]., [address] MDA Conf, Ur Does Not Confirm CutOff 150ng/mL [facility] Comment:Testing performed by : [facility], [address] [place]., [address] MDMA Conf, Ur Does Not Confirm CutOff 50 ng/mL [facility] Comment:Testing performed by : [facility], [address] [place]., [address] MDEA Conf, Ur Does Not Confirm CutOff 150ng/mL [facility] Comment:Testing performed by : [facility], [address] [place]., [address] MBDB Conf, Ur Does Not Confirm CutOff 150ng/mL [facility] Comment: Interpretive Data This test detects the presence or absence of drug compounds using LC Tandem mass spectrometry. While this test is highly specific, false positive and false negative results may occur in very rare circumstances. Contact the laboratory for consultation, if needed. Performance characteristics were determined by the [facility] in a manner consistent with CLIA requirement and has not been cleared or approved by the U.S. Food and Drug Administration. Current interpretive data was last revised on 2020. Testing performed by: [facility], [address] [place]., [address] Urine 11/16/2020 1:21 PM CDT 11/16/2020 7:39 PM CDT us Andi Eugene MD LAB URINE ORDERAB LES Final Result [facility] [address] Department of [employer] [place], [place] [phone] * (ABNORMAL) Drugs of Abuse Screen, Urine with Reflex Confirmation (11/16/2020 1:21 PM CDT) [facility] Amphetamine, ur Detected(A) CutOff 500ng/mL [facility] Comment: Interpretive Data - Amphetamines: ??Samples containing greater than 500 ng/mL d-methamphetamine ??or other cross-reacting amphetamine compounds are reported as positive. ??Amphetamine immunoassays are subject to significant false positive rates due to cross-reactivity of non-amphetamine drugs. Current Interpretive Data was last reviewed 2018. Barbiturates, ur Detected(A) CutOff 200ng/mL [facility] Comment: Interpretive Data - Barbiturates: ??Samples containing greater than 200 ng/mL secobarbital or other cross-reacting barbiturate compounds are reported as positive. ??False positive and false negative results are possible. Current Interpretive Data was last reviewed 2018. Benzodiazepines, ur Detected(A) CutOff 100ng/mL [facility] Comment: Interpretive Data - Benzodiazepines: ??Samples containing greater than 100 ng/mL nordiazepam or other cross-reacting compounds are reported as positive. ?? False positive and false negative results are possible. ?? Current Interpretive Data was last reviewed 2018. Cannabinoids, ur Not Detected CutOff 50 ng/mL [facility] Comment: Interpretive Data - Cannabinoids: ??Samples containing greater than 50 ng/mL delta-9 THC -COOH or other cross-reacting compounds are reported as positive. ??False positive and false negative results are possible. ?? Current Interpretive Data was last reviewed 2018. Cocaine, ur Not Detected CutOff 150ng/mL [facility] Comment: Interpretive Data - Cocaine: ??Samples containing greater than 150 ng/mL benzoylecgonine or other cross-reacting compounds are reported as positive. False positive and false negative results are possible. Current Interpretive Data was last reviewed 2018. Fentanyl, Ur Detected(A) Cutoff 1 ng/mL [facility] Comment: Interpretive Data - Fentanyls: ??Samples containing greater than 1 ng/mL fentanyl or other cross-reacting fentanyl compounds are reported as detected. ??False positive and false negative results are possible. Current Interpretive Data was last reviewed 2019. Methadone, ur Not Detected CutOff 300ng/mL [facility] Comment: Interpretive Data - Methadone: ??Samples containing greater than 300 ng/mL d,l-methadone or other cross-reacting compounds are reported as positive. ??False positive and false negative results are possible. Current Interpretive Data was last reviewed 2018. Opiates, ur Detected(A) CutOff 300ng/mL [facility] Comment: Interpretive Data - Opiates: ??Samples containing greater than 300 ng/mL morphine or other cross-reacting compounds are reported as positive. ??False positive and false negative results are possible. Current Interpretive Data was last reviewed 2018. Oxycodone, ur Not Detected CutOff 100ng/mL [facility] Comment: Interpretive Data - Oxycodone: ??Samples containing greater than 100 ng/mL oxycodone or other cross-reacting compounds are reported as positive. ??False positive and false negative results are possible. ?? Current Interpretive Data was last reviewed 2018. Phencyclidine, ur Not Detected CutOff 25 ng/mL [facility] Comment: Interpretive Data - Phencyclidine: ??Samples containing greater than 25 ng/mL phencyclidine or other cross-reacting compounds are reported as positive. ??False positive and false negative results are possible. ?? Current Interpretive Data was last reviewed 2018. Urine Creatinine 223 mg/dL [facility] Comment: Interpretive Data Urine Creatinine: < 10 mg/dL is extremely dilute = or > 10 but < 20 mg/dL is dilute = or > 20 mg/dL is normal Current Interpretive Data was last revised on 2017. Urine 11/16/2020 1:21 PM CDT 11/16/2020 2:26 PM CDT Narrative [facility] - 11/16/2020 3:03 PM CDT Drug of Abuse screening is performed by immunoassay for medical purposes only. ??This is not to be used for Pain Management purposes. ??If Detected, confirmation testing will be performed for Amphetamines, Cocaine, Fentanyl, Methadone, Opiates, Oxycodone or Phencyclidine. us Andi Eugene MD LAB URINE ORDERAB LES Final Result [facility] [address] [place] [address] documented in this encounter Visit Diagnoses Diagnosis Illicit drug use documented in this encounter Care Teams Calculator Operator Relationship Specialty Start Date End Date Vicky Galindo MD PCP - General 11/16/20 06/02/24 documented as of this encounter
--- OUTSIDE RECORDS SUMMARY | 2024-07-20 19:49 | XMS_ITS | Clinical Summary ---
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 Encounters Date Type Department Care Team Description 06/03/2024 3:56 PM EMR SPECIALIST - 06/03/2024 5:29 PM EMR SPECIALIST Emergency [facility] Emergency Department [address] [place] [address] Pain, dental (Primary Dx) Discharge Disposition: Discharge [...] on file Legal Sex Male 6:06 AM EMR SPECIALIST Gender Identity Not on file Sexual Orientation Straight 11/28/2020 9: 06 AM CDT Obstetrics History Last Filed Vital Signs Vital Sign Reading Time Taken Comments Blood Pressure 145/100 06/03/2024 5:25 PM EMR SPECIALIST Pulse 84 06/03/2024 5:25 PM EMR SPECIALIST Temperature 36.7 ??C (98 ??F) 06/03/2024 3:42 PM EMR SPECIALIST Respiratory Rate 18 06/03/2024 5:25 PM EMR SPECIALIST Oxygen Saturation 100% 06/03/2024 5:25 PM EMR SPECIALIST Inhaled Oxygen Concentration - - Weight 89 kg (196 lb 3.4 oz) 06/03/2024 3:42 PM EMR SPECIALIST Height 175.3 cm (5' 9 ) 06/03/2024 3:42 PM EMR SPECIALIST Body Mass Index 28.98 06/03/2024 3:42 PM EMR SPECIALIST Plan of Treatment Health Maintenance Due Date [...] to request sample to be sent to [facility] for Hepatitis C Virus (HCV) RNA Detection and Quantitation by Real-Time Reverse Creosoting Engineer-PCR (RT-PCR). Current interpretive data was last revised [...] Recently Relevant to Health Maintenance Insurance [employer] [facility] Care Teams Reimbursement Representative Relationship Specialty Start Date End Date Bear Cruz MD [address] [place] [address] PCP - General Emergency Medicine 06/03/24
--- OUTSIDE RECORDS SUMMARY | 2024-07-20 19:49 | XMS_ITS | Encounter Summary ---
Author Organization [facility] Address [address] [place] [address] Phone Care Team Providers Care Meter Attendant Name Role Phone Baljeet Doran MD Primary Care Provider [phone]- [phone] Encounter Details Date Type Department Care Team (Late st Contact Info) Description 11/06/2020 Orders Only [facility] Orthopaedic Surgery [address] [facility] 12th [place] [address] [place] [address] Andi Eugene MD [address] [facility] [address] [place] [address] 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, subsequent encounter (Primary Dx) Social History Tobacco Use Types Packs/Day Years Used Date Smoking Tobacco: Never Smokeless Tobacco: Never Sex and Gender Information Value Date Recorded Sex Assigned at Not on file 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
--- OUTSIDE RECORDS SUMMARY | 2024-07-20 19:49 | XMS_ITS | Encounter Summary ---
Author Organization [facility] Healthcare Address [address] [place] [address] Care Team Providers Care Day Treatment Clinician/Art Therapist Name Role Phone Vicky Galindo MD Primary Care Provider [phone]- [phone] Reason for Visit * Reason Onset Date Comments No Show 01/05/2021 Called patient n o answer Encounter Details Date Type Department Care Team (Late st Contact Info) Description 01/05/2021 Documentation [facility] Hand & Shoulder [address] [place] [phone] Idalmis Padilla PTA No Show (Called patient no answer) Social History Tobacco Use Types Packs/Day Years Used Date Smoking Tobacco: Never Smokeless Tobacco: Never Sex and Gender Information Value Date Recorded Sex Assigned at Not on file 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 documented in this encounter Plan of Treatment Not on file documented as of this encounter Visit Diagnoses Not on filedocumented in this encounter Care Teams Day Treatment Clinician/Art Therapist Relationship Specialty Start Date End Date Vicky Galindo MD [phone] (work) PCP - General 11/16/20 06/02/24 documented as of this encounter
--- OUTSIDE RECORDS SUMMARY | 2024-07-20 19:49 | XMS_ITS | Encounter Summary ---
Author Organization [facility] Healthcare Address [address] [place] [address] Care Team Providers Care Photographic Technician Name Role Phone Vicky Galindo MD Primary Care Provider [phone]- [phone] Reason for Referral * Diagnostic Imaging (Routine) - Closed Specialty Diagnoses / Procedures Referred By Contac t Referred To Contact Diagnoses Right shoulder pain, unspecified chronicity Procedures XR Shoulder Right 2 or More Views Andi Eugene MD [address] [place] [address] Phone: tel: fax: [address] [phone] Referral ID Status Reason Start Date Expiration Date Visits Re quested Visits Authorized [id number] Closed 11/16/2020 12/16/2021 1 1 * Diagnostic Imaging (Routine) - Closed Specialty Diagnoses / Procedures Referred By Contac t Referred To Contact Diagnoses Closed displaced fracture of acromial end of right clavicle, sequela Procedures XR Clavicle Right Andi Eugene MD [address] [place] [address] Phone: tel: fax: [address] [phone] Referral ID Status Reason Start Date Expiration Date Visits Re quested Visits Authorized [id number] Closed 11/13/2020 12/13/2021 1 1 Reason for Visit * Diagnostic Imaging (Routine) - Closed Specialty Diagnoses / Procedures Referred By Contac t Referred To Contact Diagnoses Closed displaced fracture of acromial end of right clavicle, sequela Procedures XR Clavicle Right Andi Eugene MD [address] [facility] [place] [address] Phone: tel: fax: [address] [phone] Referral ID Status Reason Start Date Expiration Date Visits Re quested Visits Authorized [id number] Closed 11/13/2020 12/13/2021 1 1 Encounter Details Date Type Department Care Team (Latest Contact Info) Description 11/16/2020 11:20 AM CDT - 11/16/2020 11:59 PM CDT Hospital Encounter [facility] [address] [place] [address] Andi Eugene MD [address] [facility] [address] [place] [phone] Closed displaced fracture of acromial end of right clavicle, sequela; Right shoulder pain, unspecified chronicity Discharge Disposition: Discharge to home or self care Social History Tobacco Use Types Packs/Day Years Used Date Smoking Tobacco: Never Smokeless Tobacco: Never Sex and Gender Information Value Date Recorded Sex Assigned at Not on file 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 Electronically signed by: Vishal Rojas M.D. [facility] 11/16/2020 11:56 AM CDT EXAMINATION: [...] chronicity documented in this encounter Care Teams Photographic Technician Relationship Specialty Start Date End Date Vicky Galindo MD PCP - General 11/16/20 06/02/24 documented as of this encounter
--- OUTSIDE RECORDS SUMMARY | 2024-07-20 19:49 | XMS_ITS | Encounter Summary ---
Author Organization [facility] Healthcare Address [address] [place] [address] Care Team Providers Care Cosmetology Instructor Name Role Phone Unavailable Primary Care Provider Unavailabl e Encounter Details Date Type Department Care Team (Late st Contact Info) Description 07/16/2020 12:47 PM MERCERIZER MACHINE OPERATOR - 07/16/2020 2:44 PM [facility] Emergency [id number] [place] [address] Unknown, Kelly Pacheco MD [facility] [place] [address] Discharge Disposition: Discharge to home or self care Social History Tobacco Use Types Packs/Day Years Used Date Smoking Tobacco: Never Assessed Sex and Gender Information Value Date Recorded Sex Assigned at Not on file 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 Gender Identity Not on file Sexual Orientation Straight 11/28/2020 9: 06 AM CDT documented as of this encounter Last Filed Vital Signs Vital Sign Reading Time Taken Comments Blood Pressure 112/85 07/16/2020 12:47 PM MERCERIZER MACHINE OPERATOR Pulse 97 07/16/2020 12:47 PM MERCERIZER MACHINE OPERATOR Temperature 36.7 ??C (98 ??F) 07/16/2020 12:47 PM MERCERIZER MACHINE OPERATOR Respiratory Rate - - Oxygen Saturation 100% 07/16/2020 12:47 PM MERCERIZER MACHINE OPERATOR Inhaled Oxygen Concentration - - Weight 100 kg (220 lb 7.4 oz) 07/16/2020 12:47 P M MERCERIZER MACHINE OPERATOR Height 175.3 cm (5' 9 ) 07/16/2020 12:47 PM MERCERIZER MACHINE OPERATOR Body Mass Index 32.56 07/16/2020 12:47 PM MERCERIZER MACHINE OPERATOR documented in this encounter Medications at Time [...] Comments URINALYSIS, COMPLETE Routine 07/16/2020 1:25 PM MERCERIZER MACHINE OPERATOR URINALYSIS AND REFLEX TO MICROSCOPIC Routine 07/16/2020 1:25 PM MERCERIZER MACHINE OPERATOR DRUGS OF ABUSE SCREEN, URINE WITHOUT CONFIRMATION Routine 07/16/2020 1:25 PM MERCERIZER MACHINE OPERATOR documented in this encounter Results * Drugs of Abuse Screen, Urine without Confirmation (07/16/2020 1:25 PM MERCERIZER MACHINE OPERATOR) [facility] Amphetamines DETECTED [facility] Comment: This assay uses 500 ng/mL as a cutoff for a positive result. Barbiturates NOT DETECTED [facility] Comment: This assay uses 200 ng/mL as a cutoff for a positive result. Urine Fentanyl DETECTED [facility] Comment: This assay uses 1 ng/mL as a cutoff for a positive result. Benzodiazepines DETECTED [facility] Comment: This assay uses 100 ng/mL as a cutoff for a positive result. Cannabinoids NOT DETECTED [facility] Comment: This assay uses 50 ng/mL as a cutoff for a positive result. Cocaine NOT DETECTED [facility] Comment: This assay uses 150 ng/mL as a cutoff for a positive result. Opiates NOT DETECTED [facility] Comment: This assay uses 300 ng/mL as a cutoff for a positive result. Urine methadone NOT DETECTED [facility] Comment: This assay uses 300 ng/mL as a cutoff for a positive result. Urine phencyclidine plus NOT DETECTED [facility] Comment: This assay uses 25 ng/mL as a cutoff for a positive result. Oxycodone NOT DETECTED [facility] Comment: This assay uses 100 ng/mL as a cutoff for a positive result. Urine Creatinine/MARTELL 213.0 mg/dL [facility] Comment: If Creatinine is < 40 mg/dL, recollection is suggested. Drug of abuse screening is performed by immunoassay for medical purposes only. This is not to be used for Pain Management purposes. 07/16/2020 1:25 PM MERCERIZER MACHINE OPERATOR 07/16/2020 1:44 PM MERCERIZER MACHINE OPERATOR Narrative Resulting Agency Comment ER us Kelly Reaves MD LAB URINE ORDERABLES Nettie pierre Result [facility] [address] [place] [address], [facility] [phone] * (ABNORMAL) Urinalysis, Complete (07/16/2020 1:25 PM MERCERIZER MACHINE OPERATOR) Ur Collection Type OTHER [facility] Urine Color YELLOW YELLOW [facility] Urine Clarity Slightly-Leonila udy CLEAR [facility] Urine Glucose (UA) 50(A) NORMAL mg/dL [facility] Urine Bilirubin NEGATIVE NEGATIVE mg/dl [facility] Urine Ketones NEGATIVE NEGATIVE mg/dL [facility] Ur Specific [place] 1.024 1.005 - 1.025 [facility] Urine Blood NEGATIVE NEGATIVE mg/dl [facility] Urine pH 5.0 5.0 - 8.0 [facility] Urine Protein NEGATIVE NEGATIVE mg/dL [facility] Urine Urobilinogen 2(A) NORMAL mg/dL [facility] Urine Nitrite NEGATIVE NEGATIVE [facility] Ur Leukocyte Esterase NEGATIVE NEGATIVE Gokul/ul [facility] Ur Microscopic Review Indicated or Ordered [facility] Urine RBC 0-2 0 - 2 /HPF [facility] Urine WBC 0-5 0 - 2 /HPF [facility] Urine Bacteria Trace /HPF [facility] Urine Mucus Present /LPF [facility] Urine Sperm Present /HPF [facility] 07/16/2020 1:25 PM MERCERIZER MACHINE OPERATOR 07/16/2020 1:44 PM MERCERIZER MACHINE OPERATOR Narrative [facility] - 07/16/2020 2:00 PM MERCERIZER MACHINE OPERATOR mm Other Resulting Agency Comment ER Kelly Reaves MD LAB URINE ORDERABLES Nettie l Result [facility] [address] [place], [place] [id number] [place] [address] * (ABNORMAL) Urinalysis reflex to microscopic (07/16/2020 1:25 PM MERCERIZER MACHINE OPERATOR) Ur Collection Type OTHER [facility] Urine Color YELLOW YELLOW [facility] Urine Clarity Slightly-Leonila udy CLEAR [facility] Urine Glucose (UA) 50(A) NORMAL mg/dL [facility] Urine Bilirubin NEGATIVE NEGATIVE mg/dl [facility] Urine Ketones NEGATIVE NEGATIVE mg/dL [facility] Ur Specific [place] 1.024 1.005 - 1.025 [facility] Urine Blood NEGATIVE NEGATIVE mg/dl [facility] Urine pH 5.0 5.0 - 8.0 [facility] Urine Protein NEGATIVE NEGATIVE mg/dL [facility] Urine Urobilinogen 2(A) NORMAL mg/dL [facility] Urine Nitrite NEGATIVE NEGATIVE [facility] Ur Leukocyte Esterase NEGATIVE NEGATIVE Gokul/ul [facility] Ur Microscopic Review Indicated or Ordered [facility] Urine RBC 0-2 0 - 2 /HPF [facility] Urine WBC 0-5 0 - 2 /HPF [facility] Urine Bacteria Trace /HPF [facility] Urine Mucus Present /LPF [facility] Urine Sperm Present /HPF [facility] 07/16/2020 1:25 PM MERCERIZER MACHINE OPERATOR 07/16/2020 1:44 PM MERCERIZER MACHINE OPERATOR Narrative [facility] - 07/16/2020 2:00 PM MERCERIZER MACHINE OPERATOR mm Other Resulting Agency Comment ER us Kelly Reaves MD LAB URINE ORDERABLES Nettie pierre Result [address] [address], [facility] [phone] documented in this encounter Visit Diagnoses Not on filedocumented in this encounter
--- OUTSIDE RECORDS SUMMARY | 2024-07-20 19:50 | XMS_ITS | Encounter Summary ---
Author Organization 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); Other early complication of trauma; Accidental poisoning by salicylates; Poisoning by benzodiazepine-based tranquilizers; Acute renal failure (HCC); Accidental poisoning by heroin (CMS/HCC) (HCC) Social History Tobacco Use Types Packs/Day Years Used Date Smoking Tobacco: Never Assessed Sex and Gender Information Value Date Recorded Sex Assigned at Not on file Legal Sex Male 6:06 AM [employer] Gender Identity Not on file Sexual [...] total (02/10/2013 7:34 AM CDT) Creatine Kinase 11065(H) 20 - 200 U/L 02/10/2013 10:34 AM CDT [facility] HISTORICAL RESULTS Comment: 02/10/2013 7:34 AM CDT 02/10/2013 7:39 AM CDT us Oz Posada MD LAB BLOOD ORDERABLES Final R [facility] Performing Organization Address City/[facility] Co de Phone Number [facility] HISTORICAL RESULTS * (ABNORMAL) Creatinine with GFR (02/10/2013 7:34 AM CDT) Creatinine 3.7(H) 0.5 - 1.3 mg/dL 02/10/2013 8:55 AM CDT [facility] HISTORICAL RESULTS Kidney Disease Stage 20 mL/MIN 02/10/2013 8:45 AM CDT [facility] HISTORICAL RESULTS Comment: NOTE; ??The GFR is an estimated [...] Posada MD LAB URINE ORDERABLES Final R [facility] Performing Organization Address [facility] Co de Phone Number [facility] HISTORICAL RESULTS * (ABNORMAL) Troponin I (02/10/2013 7:34 AM CDT) Troponin I 1.040(HH) 0.000 - 0.300 ng/mL 02/10/2013 8:27 AM T [facility] HISTORICAL RESULTS Comment: CRITICAL VALUE previously reported. See results in EMR. ? Reference using EDUARDO Chemiluminescence ? Consistent with IA: ? Clinical and Laboratory correlation is recommended. ? 02/10/2013 7:34 AM CDT 02/10/2013 7:39 AM CDT Oz Posada MD LAB BLOOD ORDERABLES Final R esult Performing Organization Address [facility] Co de Phone Number [facility] HISTORICAL RESULTS * Lactate (02/10/2013 7:34 AM CDT) Pathologist [facility] L-Lactate 1.1 0.5 - 2.2 mmol/L 02/10/2013 10:28 AM T [facility] HISTORICAL RESULTS 02/10/2013 7:34 AM CDT 02/10/2013 7:39 AM CDT Oz Posada MD LAB BLOOD ORDERABLES Final R esult Performing Organization Address [facility] Co de Phone Number [facility] HISTORICAL RESULTS * (ABNORMAL) Comprehensive metabolic panel (02/10/2013 7:34 AM CDT) Pathologist [facility] Sodium 129(L) 135 - 145 mmol/L Potassium [...] Total Bilirubin 0.8 0.0 - 1.2 mg/dL 02/10/2013 9:04 AM CDT [facility] HISTORICAL RESULTS AST 1455(H) 0 - 38 U/L 02/10/2013 9:04 AM CDT [facility] RESULTS Comment: ALT 1163(H) 0 - 41 U/L 02/10/2013 9:04 AM CDT [facility] HISTORICAL RESULTS Comment: Alkaline Phosphatase 58 40 - 129 U/L 02/10/2013 9:04 AM CDT [facility] HISTORICAL RESULTS 02/10/2013 7:34 AM CDT 02/10/2013 7:39 AM CDT us Oz Posada MD LAB BLOOD ORDERABLES Final R esult [facility] HISTORICAL RESULTS * (ABNORMAL) CBC with auto differential (02/10/2013 7:34 AM CDT) WBC 19.3(H) 4.6 - 10.2 x10 3/ul 02/10/2013 7:48 AM CDT [facility] HISTORICAL RESULTS RBC 4.66 4.11 - 5.71 x10 6/ul 02/10/2013 7:48 AM CDT [facility] HISTORICAL RESULTS Hemoglobin 13.1 13.0 - 17.0 g/dl 02/10/2013 7:48 AM CDT [facility] HISTORICAL RESULTS Hct 37.5(L) 38.2 - 48.5 % 02/10/2013 7:48 AM CDT [facility] HIST[facility]ICAL RESULTS MCV 80.5 80.0 - 97.0 fl 02/10/2013 7:48 AM CDT [facility] HISTORICAL RESULTS MCH 28.1 27.0 - 31.2 pg 02/10/2013 7:48 AM CDT [facility] HISTORICAL RESULTS MCHC 34.9 31.8 - 35.4 g/dl 02/10/2013 7:48 AM CDT [facility] HISTORICAL RESULTS RDW 13.3 11.6 - 14.8 % 02/10/2013 7:48 AM CDT [facility] H[facility]ICAL RESULTS Plt Count 77(L) 124 - 400 x10 3/ul MPV 9.8 7.4 - 10.4 fl Differential Method AUTOMATED DIFF --------- -- Neut % 87.0(H) 37.0 - 85.0 % Immature Gran % 0.3 0.0 - 3.0 % Lymph % 6.2 5.0 - 45.0 % [place] % 5.3 3.0 - 15.0 % Eos [...] 0.0 0.0 - 0.2 x10 3/ul 02/10/2013 7:48 AM CDT [facility] HISTORICAL RESULTS 02/10/2013 7:34 AM CDT 02/10/2013 7:39 AM CDT Oz Posada MD LAB BLOOD ORDERABLES Final R esult Performing Organization Address [facility] de Phone Number [facility] HISTORICAL RESULTS * (ABNORMAL) CRP (acute phase) (02/10/2013 7:34 AM CDT) C-Reactive Protein 78.2(H) 0.0 - 4.9 mg/L 02/10/2013 8:56 AM CDT [facility] HISTORICAL RESULTS 02/10/2013 7:34 AM CDT 02/10/2013 7:39 AM CDT Oz Posada MD LAB BLOOD ORDERABLES Final R esult Performing Organization Address [facility] Phone Number [facility] HISTORICAL RESULTS * (ABNORMAL) Troponin I (02/10/2013 1:52 AM CDT) Troponin I 1.580(HH) 0.000 - 0.300 ng/mL 02/10/2013 3:15 AM CDT [facility] HISTORICAL RESULTS Comment: CRITICAL VALUE CALLED and REPEATED. ?? at:0314 02/10/13 by:Vitor Goodrich to:HAILY SANTOS RN ?? Reference using EDUARDO Chemiluminescence ? Consistent with IA: ? Clinical and Laboratory correlation is recommended. ? 02/10/2013 1:52 AM CDT 02/10/2013 2:08 AM CDT Narrative [facility] HISTORICAL RESULTS - 02/10/2013 3:15 AM CDT Line Draw by RN ?? Oz Posada MD LAB BLOOD ORDERABLES Final R esult Performing Organization Address [facility] Phone Number [facility] HISTORICAL RESULTS * Transesophageal Echo W Doppler/CF (02/10/2013 12:00 AM CDT) Anatomical Region Laterality Modality Ultrasound 02/10/2013 Narrative 02/10/2013 12:53 PM CDT Results viewable in EMR, Cardiovasular [EOD] Procedure Note Provider, Naheed, - 11/30/2020 Results viewable in EMR, Cardiovasular [EOD] us Oz Posada MD CV ECHO PROCEDURES Final Res ult * (ABNORMAL) Troponin I (02/09/2013 7:04 PM CDT) [facility] Troponin I 1.260(HH) 0.000 - 0.300 ng/mL 02/09/2013 7:32 PM CDT [facility] HISTORICAL RESULTS Comment: CRITICAL VALUE CALLED and REPEATED. ?? at:1932 02/09/13 by:Izzy Lee to:EUSEBIO SANTOS RN ?? Reference using EDUARDO Chemiluminescence ? Consistent with IA: ? Clinical and Laboratory correlation is recommended. ? 02/09/2013 7:04 PM CDT 02/09/2013 7:06 PM CDT Oz Posada MD LAB BLOOD ORDERABLES Final R esult [facility] HISTORICAL RESULTS * Osmolality, blood (02/09/2013 12:25 PM CDT) [facility] Serum Osmolality 293 270 - 300 mOsm/kg 02/09/2013 1:12 PM CDT [facility] HISTORICAL RESULTS 02/09/2013 12:2 5 PM CDT 02/09/2013 12:28 PM CDT Heidy Grayson MD LAB BLOOD ORDERABLES Final Result [facility] HISTORICAL RESULTS * Microbiology Specimen Report (Converted) (02/09/2013 12:14 PM CDT) 02/09/2013 12:1 4 PM CDT 02/09/2013 12:28 PM CDT Narrative [facility] HISTORICAL RESULTS - 02/09/2013 12:14 PM CDT Microbiology Specimen Report (Converted) SPECIMEN [id number] ?? COLLECTED: 2013-02-09 12:14:00 [id number] ?? REQ#: [id number] REQUESTING DR: Heidy Grayson MD ?? SOURCE: BLOOD ?? SP DESC: COMMENT: MLS DRAWN: 20CC ? ANATOMIC SITE: RT AC ? [place] [id number] 02/09/13 1228 --- PROCEDURE --- ?--- RESULT --- ?? CULTURE BLOOD ADULT (SET OF 2) ??(Final) ??- ??Performed at [facility] ?* NO GROWTH DAY 5 - [facility] ? [address] ? [place] [address] ? Nikita Reese MD Procedure Note 10/06/2018 Microbiology Specimen Report (Converted) SPECIMEN [id number] COLLECTED: 2013-02-09 12:14:00 [id number] REQ#:[id number] REQUEST[address]: Heidy Grayson MD SOURCE: BLOOD SP DESC: COMMENT: MLS DRAWN: 20CC ANATOMIC SITE: [place] [id number] 02/09/13 1228 --- PROCEDURE --- --- RESULT --- CULTURE BLOOD ADULT (SET OF 2) (Final) - Performed at [facility] * NO GROWTH DAY 5 - [facility] [address] [place] [address] Nikita Reese MD Heidy Grayson MD LAB BLOOD ORDERABLES Final Result [facility] HISTORICAL RESULTS * Microbiology Specimen Report (Converted) (02/09/2013 12:11 PM CDT) 02/09/2013 12:1 1 PM CDT 02/09/2013 12:28 PM CDT Narrative [facility] HISTORICAL RESULTS - 02/09/2013 12:11 PM CDT Microbiology Specimen Report (Converted) SPECIMEN [id number] ?? COLLECTED: 2013-02-09 12:11:00 [id number] ?? REQ#: [id number] REQUESTING DR: Heidy Grayson MD ?? SOURCE: BLOOD ?? SP DESC: COMMENT: MLS DRAWN: 20CC ? ANATOMIC SITE: RT AC ? [place] [id number] 02/09/13 1228 --- PROCEDURE --- ?--- RESULT --- ?? CULTURE BLOOD ADULT (SET OF 2) ??(Final) ??- ??Performed at [facility] ?* NO GROWTH DAY 5 - [facility] ? [address] [place] [address] ? [place] [address] ? Nikita Reese MD Procedure Note 10/06/2018 Microbiology Specimen Report (Converted) SPECIMEN [id number] COLLECTED: 2013-02-09 12:11:00 [id number] REQ#:[id number] REQUESTING DR: Heidy Grayson MD SOURCE: BLOOD SP DESC: COMMENT: MLS DRAWN: 20CC ANATOMIC SITE: [place] [id number] 02/09/13 1228 --- PROCEDURE --- --- RESULT --- CULTURE BLOOD ADULT (SET OF 2) (Final) - Performed at [facility] * NO GROWTH DAY 5 - [facility] [address] [place] [address] Nikita Reese MD Heidy Grayson MD LAB BLOOD ORDERABLES Final Result [facility] HISTORICAL RESULTS * (ABNORMAL) Blood gas (includes COOX) (02/09/2013 11:20 AM CDT) Specimen Type ARTERIAL Puncture Site RB Patient Temperature 37 C 02/09 11:38 AM [facility] HISTORICAL RESULTS pH 7.268(LL) [...] O2 Difference 280.5(H) <=10.0 013 11:38 AM [facility] HISTORICAL RESULTS a/A Ratio 0.6(L) >=0.8 O2 Delivery Device NR MASK 2012 11:38 AM CDT [facility] HISTORICAL RESULTS FiO2 100.0 % 02/09/2013 11:38 AM CDT [facility] HISTORICAL RESULTS Jersey Knitter ID [id number] 02/09/2013 11:38 AM CDT [facility] HISTORICAL RESULTS 02/09/2013 11:2 0 AM CDT 02/09/2013 11:30 AM CDT Narrative [facility] HISTORICAL RESULTS - 02/09/2013 11:38 AM CDT Type ARTERIAL LINE Heidy Grayson MD LAB BLOOD ORDERABLES Final Result [facility] HISTORICAL RESULTS * (ABNORMAL) Creatine kinase (CK), total (02/09/2013 11:18 AM CDT) Creatine Kinase 08253(H) 20 - 200 U/L 02/09/2013 1:05 PM CDT [facility] HISTORICAL RESULTS 02/09/2013 11:1 8 AM CDT 02/09/2013 11:20 AM CDT us Heidy Grayson MD LAB BLOOD ORDERABLES Final Result Performing Organization Address [facility] Co de Phone Number [facility] HISTORICAL RESULTS * (ABNORMAL) Hemogram with manual differential (02/09/2013 11:18 AM CDT) WBC 28.3(H) 4.6 - 10.2 x10 3/ul 02/09/2013 11:29 AM CDT [facility] HISTORICAL RESULTS RBC 5.24 4.11 - 5.71 x10 6/ul 02/09/2013 11:29 AM CDT [facility] HISTORICAL RESULTS Hemoglobin 15.0 13.0 - 17.0 g/dl 02/09/2013 11:29 AM CDT [facility] HISTORICAL RESULTS Hct 43.9 38.2 - 48.5 % 02/09/2013 11:29 AM CDT [facility] HISTORICAL RESULTS MCV 83.8 80.0 - 97.0 fl 02/09/2013 11:29 AM CDT [facility] HISTORICAL RESULTS MCH 28.6 27.0 - 31.2 pg MCHC 34.2 31.8 - 35.4 g/dl RDW 12.8 11.6 - 14.8 % Plt Count 111(L) 124 - 400 x10 3/ul MPV 9.6 7.4 - 10.4 fl Differential Method AUTOMATED DIFF --------- -- Neut % 90.0(H) 37.0 - 85.0 % Immature Gran % 0.5 0.0 - 3.0 % Lymph % 3.3(L) 5.0 - 45.0 % [place] % 6.1 3.0 - 15.0 % Eos % 0.0 0.0 - 7.0 % Baso % 0.1 0.0 - 2.0 % ABSOLUTE COUNTS ABSOLUTE COUNTS --------- -- Absolute Neuts (auto) 25.5(H) 1.7 - 8.7 x10 3/ul Immature Gran # 0.1 0.0 - 0.3 x10 3/ul Absolute Lymphs (auto) 0.9 0.2 - 4.6 x10 3/ul 02/09/2013 11:29 AM T [facility] HISTORICAL RESULTS Absolute Monos (auto) 1.7(H) 0.1 - 1.5 x10 3/ul 02/09/2013 11:29 AM T [facility] HISTORICAL RESULTS Absolute Eos (auto) 0.0 0.0 - 0.7 x10 3/ul 02/09/2013 11:29 AM T [facility] HISTORICAL RESULTS Absolute Basos (auto) 0.0 0.0 - 0.2 x10 3/ul 02/09/2013 11:29 AM T [facility] HISTORICAL RESULTS Platelet Evaluation AGREE AGREE Comment:Slide review of plat elets correlates with instrument count. RBC Morphology NORMAL NORMAL 02/09/2013 11:1 8 AM CDT 02/09/2013 11:20 AM CDT Heidy Grayson MD LAB BLOOD ORDERABLES Final Result Performing Organization Address [facility] Co de Phone Number [facility] HISTORICAL RESULTS * Salicylate level (02/09/2013 11:18 AM CDT) Salicylates < 1 0 - 29 mg/dL 02/09/2013 11:1 8 AM CDT 02/09/2013 11:20 AM CDT Heidy Grayson MD LAB BLOOD ORDERABLES Final Result Performing Organization Address [facility] Co de Phone Number [facility] HISTORICAL RESULTS * (ABNORMAL) Protime-INR (02/09/2013 11:18 AM CDT) PT 17.6(H) 12.2 - 14.8 SECONDS 02/09/2013 11:42 AM T [facility] HISTORICAL RESULTS INR 1.40 0.01 - 5.99 02/09/2013 11:42 AM T [facility] HISTORICAL RESULTS Comment: Recommended Therapeutic range for Oral Anticoagulant [...] Final Result Performing Organization Address [facility] de Phone Number [facility] HISTORICAL RESULTS * (ABNORMAL) Lactate (02/09/2013 11:18 AM CDT) L-Lactate 8.2(HH) 0.5 - 2.2 mmol/L 02/09/2013 11:51 AM CDT [facility] HISTORICAL RESULTS Comment: CRITICAL VALUE CALLED and REPEATED. ?? at:1150 02/09/13 by:Sabine Alcantara to:Ana Vyas ?? 02/09/2013 11:1 8 AM CDT 02/09/2013 11:20 AM CDT us Heidy Grayson MD LAB BLOOD ORDERABLES Final Result Performing Organization Address [facility] de Phone Number [facility] HISTORICAL RESULTS * Ethanol (02/09/2013 11:18 AM CDT) Ethyl Alcohol < 10 mg/dL 02/09/2013 11:46 AM CDT [facility] HISTORICAL RESULTS Comment:% = mg/dL x .001 02/09/2013 11:1 8 AM CDT 02/09/2013 11:20 AM CDT Heidy Grayson MD LAB BLOOD ORDERABLES Final Result Performing Organization Address [facility]/ZIP Co de Phone Number [facility] HISTORICAL RESULTS * (ABNORMAL) Comprehensive metabolic panel (02/09/2013 11:18 AM CDT) [facility] Sodium 137 135 - 145 mmol/L 02/09/2013 11:46 AM T [facility] HISTORICAL RESULTS Potassium 4.9 3.3 - 5.1 mmol/L 02/09/2013 11:46 AM T [facility] HISTORICAL RESULTS Chloride 94(L) 96 - 108 mmol/L 02/09/2013 11:46 AM T [facility] HISTORICAL RESULTS Carbon Dioxide 23 22 - 32 mmol/L 02/09/2013 11:46 AM T [facility] HISTORICAL RESULTS Anion Gap 20 02/09/2013 11:46 AM T [facility] HISTORICAL RESULTS Glucose 131(H) 70 - 110 mg/dL 02/09/2013 11:46 AM T [facility] HISTORICAL RESULTS BUN 15 6 - 20 mg/dL 02/09/2013 11:46 AM T [facility] HISTORICAL RESULTS Creatinine 2.1(H) 0.5 - 1.3 mg/dL 02/09/2013 11:46 AM T [facility] HISTORICAL RESULTS Kidney Disease Stage 39 mL/MIN Comment: NOTE; [...] Grayson MD LAB BLOOD ORDERABLES Final Result [facility] HISTORICAL RESULTS * Acetaminophen level (02/09/2013 11:18 AM CDT) Acetaminophen < 15.0 10.0 - 30.0 ug/mL Comment: Acetaminophen concentrations greater than 200 ug/mL at four hours after ingestion and greater than 50 ug/mL at 12 hours after ingestion are often associated with toxicity. 02/09/2013 11:1 8 AM CDT 02/09/2013 11:20 AM CDT us Heidy Grayson MD LAB BLOOD ORDERABLES Final Result [facility] HISTORICAL RESULTS * (ABNORMAL) Urinalysis reflex to microscopic and culture (02/09/2013 11:12 AM CDT) Ur Collection Type VOIDED Ur Culture Indicated? C&S NOT INDICATED Urine Color DURGA YELLOW Urine Clarity CLEAR CLEAR Urine Glucose (UA) 500(H) NORMAL mg/dL Urine Bilirubin NEGATIVE NEGATIVE mg/dl Urine Ketones NEGATIVE NEGATIVE mg/dL 02/09/2013 11:32 AM [facility] Ur Specific [place] 1.020 1.005 - 1.025 02/09/2013 11:32 AM [facility] HISTORICAL RESULTS Urine Blood 1.0(H) NEGATIVE mg/dl Urine pH 5.0 5.0 - 8.0 02/09/2013 11:32 AM [facility] HISTORICAL RESULTS Urine Protein 30(H) NEGATIVE mg/dL 02/09/2013 11:32 AM [facility] HISTORICAL RESULTS Urine Urobilinogen NORMAL NORMAL mg/dL 02/09/2013 11:32 AM [facility] HISTORICAL RESULTS Urine Nitrite NEGATIVE NEGATIVE 02/09/2013 11:32 AM [facility] HISTORICAL RESULTS Ur Leukocyte Esterase NEGATIVE NEGATIVE Gokul/ul 02/09/2013 11:32 AM [facility] HISTORICAL RESULTS Ur Microscopic Review Indicated or Ordered 02/09/2013 11:32 AM [facility] HISTORICAL RESULTS Urine RBC 1 0 - 2 /HPF 02/09/2013 11:32 AM [facility] HISTORICAL RESULTS Urine WBC 3 0 - 2 /HPF 02/09/2013 11:32 AM [facility] HISTORICAL RESULTS Urine Bacteria Few /HPF 02/09/2013 11:32 AM CDT [facility]ULTS Urine Yeast (Budding) Mod /HPF 02/09/2013 11:32 AM CDT [facility] HISTOR[facility] RESULTS Urine Mucus Few /LPF 02/09/2013 11:32 AM T [facility] HIST[facility] RESULTS Ur Squamous Epith Cells Rare /HPF 02/09/2013 11:32 AM T [facility] HISTOR[facility] RESULTS Hyaline Casts 12 0 - 2 /LPF 02/09/2013 11:32 AM T [facility] HISTORICAL RESULTS 02/09/2013 11:1 2 AM CDT 02/09/2013 11:18 AM CDT Narrative [facility] - 02/09/2013 11:32 AM CDT Collected By cs ?? [id number] ?? Heidy Grayson MD LAB MICROBIOLOGY - GE NERAL ORDERABLES Final Result [facility] HISTORICAL RESULTS * (ABNORMAL) Rapid Urine Drug Screen (02/09/2013 11:12 AM CDT) Urine cannabinoid NEGATIVE NEGATIVE 013 11:46 AM [facility] HISTORICAL RESULTS Comment: Cut-off Limit: 50 ng/mL Note: ??Positive results from this drug screen are unconfirmed. ??Unconfirmed screening results should not be used for non-medical purposes. ALTERNATE DRUG SCREEN METHOD IN USE ? DUE TO INSTRUMENT DOWNTIME Urine cocaine POSITIVE(H) NEGATIVE 02/09/2013 11:46 AM [facility] HISTORICAL RESULTS Comment: RESULT CALLED at: 1145 02/09/13 by: [id number] to: ANA VYAS ?? CONFIRMATION on Positive result requested:NO Cutoff limit: ??300 ng/mL Urine opiate POSITIVE(H) NEGATIVE 02/09/2013 11:46 AM [facility] HISTORICAL RESULTS Comment: RESULT CALLED at: 1145 02/09/13 by: [id number] to: ANA VYAS ?? CONFIRMATION on Positive result requested:NO Cutoff Limit: ??300 ng/mL Urine amphetamine NEGATIVE NEGATIVE 013 11:46 AM T [facility] HISTORICAL RESULTS Comment:Cutoff Limit: 1000 n g/mL Urine methamphetamine NEGATIVE NEGATIVE 02/09/2013 11:46 AM T [facility] HISTORICAL RESULTS Comment:Cutoff Limit: 1000 n g/mL Urine PCP NEGATIVE NEGATIVE 02/09/2013 11:46 AM T [facility] HISTORICAL RESULTS Comment:Cutoff Limit: 25 ng/ mL Urine MDMA (Ecstasy) NEGATIVE NEGATIVE 02/09/2013 11:46 AM T [facility] HISTORICAL RESULTS Comment:Cutoff Limit: 500 ng /mL Urine barbiturate NEGATIVE NEGATIVE 013 11:46 AM T [facility] HISTORICAL RESULTS Comment:Cut-off limit: 300 n g/mL Urine benzodiazepine POSITIVE(H) NEGATIVE Comment: RESULT CALLED at: 1146 02/09/13 by: [id number] to: ANA VYAS ?? CONFIRMATION on Positive result requested:NO Cut-off limit: 300 ng/mL Urine methadone NEGATIVE NEGATIVE 3 11:46 AM T [facility] HISTORICAL RESULTS Comment:Cutoff Limit: 300 ng /mL Urine tricyclic antidepressant NEGATIVE NEGATIVE 02/09/2013 11:46 AM T [facility] HISTORICAL RESULTS Comment:Cutoff Limit: 1000 n g/mL Urine oxycodone NEGATIVE NEGATIVE 3 11:46 AM [facility] HISTORICAL RESULTS Comment:Cutoff Limit: 100 ng /mL 02/09/2013 11:1 2 AM CDT 02/09/2013 11:18 AM CDT Narrative [facility] HISTORICAL RESULTS - 02/09/2013 11:46 AM CDT Collected By cs ?? [id number] us Heidy Grayson MD LAB BLOOD ORDERABLES Final Result [facility] HISTORICAL RESULTS * XR Chest 1 View (02/09/2013 11:00 AM CDT) Anatomical Region Laterality Modality Body, Chest N/A Radiographic Ree ging 02/09/2013 11:0 0 AM CDT Impressions 02/09/2013 11:42 AM CDT ?? No radiographic evidence of an acute cardiopulmonary process. THIS IS AN ELECTRONICALLY VERIFIED REPORT 02/09/2013 11:39 AM: ??Nikolai Castorena M.D. Nikolai Castorena M.D. AT:at 11:39 AM 11:39 AM [facility] [EOD] Narrative 02/09/2013 11:42 AM CDT EXAMINATION: ??AP radiograph of the chest. ?? DATE: ??02/09/2013 at 11:28 a.m. COMPARISON: ??09/17/2008 HISTORY: ??Drowsiness and stupor TECHNIQUE: ??Single AP radiograph of the chest was submitted for review. Interpretation provided at: ??[facility] FINDINGS: ?? The cardiac silhouette is within [...] was submitted for review. Interpretation provided at: [facility] FINDINGS: The cardiac silhouette is within normal limits. The trachea is midline.The lungs are normally expanded without evidence of consolidation,pneumothorax, or large pleural effusion. The osseous structures are unremarkable. IMPRESSION: No radiographic evidence of an acute cardiopulmonary process. THIS IS AN ELECTRONICALLY VERIFIED REPORT 02/09/2013 11:39 AM: Nikolai Castorena M.D. Nikolai Csatorena M.D. AT:at 11:39 AM 11:39 AM [facility] [EOD] us Heidy Grayson MD IMG XR [...] Castorena M.D. AT:at 12:58 PM 12:58 PM [facility] [EOD] Narrative 02/09/2013 1:01 PM CDT EXAMINATION: ??2 Views of the left hand. DATE: ??02/09/2013 COMPARISON: ??None. HISTORY: ??Pain. TECHNIQUE: ??AP and lateral radiographs of the left hand were obtained. Interpretation provided at: ??[facility] FINDINGS: Evaluation is moderately limited due to [...] left hand were obtained. Interpretation provided at: [facility] FINDINGS: Evaluation is moderately limited due to [...] Castorena M.D. AT:at 12:58 PM 12:58 PM [facility] [EOD] us Heidy Grayson MD IMG XR [...] Mendez M.D. KL:vito 03:15 PM 03:15 PM [facility] [EOD] Narrative 02/09/2013 3:19 PM CDT EXAMINATION: [...] Mendez M.D. KL:vito 03:15 PM 03:15 PM [facility] [EOD] us Heidy Grayson MD IMG XR [...] Castorena M.D. AT:at 11:56 AM 11:56 AM [facility] [EOD] Narrative 02/09/2013 11:59 AM CDT EXAMINATION: CT ??HEAD WITHOUT CONTRAST DATE: ??02/09/2013 COMPARISON: ??08/19/2011 HISTORY: Altered consciousness, overdose TECHNIQUE: 3 mm axial images of the head were acquired without contrast. Interpretation provided at: ??[facility] FINDINGS: ?? There is no evidence of [...] were acquired without contrast. Interpretation provided at: [facility] FINDINGS: There is no evidence of acute [...] Castorena M.D. AT:at 11:56 AM 11:56 AM [facility] [EOD] us Heidy Grayson MD IMG CT PROCEDURES Fin al Result * XR Wrist Left 2 Views (02/09/2013 12:00 AM CDT) Anatomical Region Laterality Modality Upper Extremities, Wrist Left Radiogr aphic Imaging 02/09/2013 Impressions 02/09/2013 12:58 PM CDT ?? No evidence of fracture. THIS IS AN ELECTRONICALLY VERIFIED REPORT 02/09/2013 12:56 PM: ??Nikolai Castorena M.D. Nikolai Castorena M.D. AT:at 12:56 PM 12:56 PM [facility] [EOD] Narrative 02/09/2013 12:58 PM CDT EXAMINATION: ??2 Views of the left wrist. DATE: ??02/09/2013 COMPARISON: ??None. HISTORY: ??Pain. TECHNIQUE: ??AP and lateral radiographs of the left wrist were obtained. Interpretation provided at: ??[facility] FINDINGS: The osseous structures are intact without evidence of fracture. ??No radiopaque foreign bodies are identified. ??No focal soft tissue swelling is seen. ??No significant degenerative changes are identified. Procedure Note Provider, MD Naheed - 11/30/2020 EXAMINATION: 2 Views of the left wrist. DATE: 02/09/2013 COMPARISON: None. HISTORY: Pain. TECHNIQUE: AP and lateral radiographs of the left wrist were obtained. Interpretation provided at: [facility] FINDINGS: The osseous structures are intact without evidence of fracture. Noradiopaque foreign bodies are identified. No focal soft tissue swelling is seen. No significant degenerative changes are identified. IMPRESSION: No evidence of fracture. THIS IS AN ELECTRONICALLY VERIFIED REPORT 02/09/2013 12:56 PM: Nikolai Castorena M.D. Nikolai Castorena M.D. AT:at 12:56 PM 12:56 PM [facility] [EOD] Heidy Grayson MD IMG XR PROCEDURES Fin al Result documented in this encounter Visit Diagnoses Diagnosis Poisoning by heroin (HCC) Other early complication of trauma Accidental poisoning by salicylates Poisoning by benzodiazepine-based tranquilizers Acute renal failure (HCC) Acute kidney failure, unspecified Accidental poisoning by heroin (CMS/HCC) (HCC) documented in this encounter
--- OUTSIDE RECORDS SUMMARY | 2024-07-20 19:50 | XMS_ITS | Encounter Summary ---
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 Dictating: Dick Montiel M.D. Service Dt: 2013 CONSULTATION REPORT PHYSICIAN REQUESTING CONSULTATION: Yas Addison MD. SERVICE REQUESTING CONSULTATION: Medicine. REASON [...] 02/22/2013 01:45 P Yamile Muñoz M.D. SA/arunav #[id number] Editing MT: TD: 2013 18:16:00 cc: Tasha Gore M.D. Medicine Medicine Yamile Muñoz M.D. documented in this encounter Miscellaneous Notes * Op Note - Provider, MD Naheed - 02/12/2013 12:00 AM CDT Patient: Giovana Lebron Reg No: [id number] [facility] #: [id number] Admit Dt.: 02/10/2013 : 1980 Pt Type: 100 Room No: [id number] Attending: Medicine Medicine Surgeon: Tate Ivan M.D. [...] Irrigation and hemostasis. Electronically Signed By Tate Ivan M.D. 02/19/2013 11:44 A Tate Ivan M.D. [facility]/marguerite #[id number] Editing MT: TD: 02/13/2013 12:12:00 cc: Tate Ivan M.D. Medicine Medicine * Op Note - Provider, MD Naheed - 02/12/2013 12:00 AM CDT Patient: Giovana Lebron Reg No: [id number] [facility] #: [id number] Admit Dt.: 02/10/2013 : 1980 Pt Type: [facility] Room No: [id number] Attending: Medicine Medicine Surgeon: Tate Ivan M.D. Dictating: Valentina Pedraza M.D. Service Dt: 02/12/2013 OPERATIVE REPORT FIRST WAXING MACHINE OPERATOR HELPER: Sharon Wolfe M.D. SECOND/THIRD WAXING MACHINE OPERATOR HELPER: Tasha Fortune, MS4 PREOPERATIVE DIAGNOSIS (ES): Left [...] presumed drug overdose. He was admitted to [facility] on Monday, where he was noted [...] M.D. 02/19/2013 11:44 A Tate Ivan M.D. [facility]/ryan #[id number] Editing MT: TD: 02/13/2013 13:05:00 cc: Tasha [...] HISTORICAL RESULTS - 02/26/2013 7:18 PM CDT ?[facility] ?Department of Laboratories ? [facility] ? [place] [address] Patient Name: ??GIOVANA LEBRON Med Rec Number: [id number] Fin Number: ?[id number] Date: ?1980 Sex/Age: ? Male 33 years Admit Date: ?02/10/2013 Discharge Date: 02/26/2013 Doctor: ?[facility] , [facility] Facility: ?[facility] Location: ?0102 01 13859 Chart Printed: 02/26/2013 19:18 ?? * Abnormal [...] ?? 20:46:00 ?6636 ??H 02/13/2013 ?? 00:54:00 ?55697 ??C 02/11/2013 ?? 23:44:00 ?89921 ??Cf 02/11/2013 ?? 17:09:00 ?92164 ??Cf 02/11/2013 ?? 12:18:00 ?? 1238 ??H 02/11/2013 ?? 12:18:00 ?11050 ??Cf ??334 ??H 02/11/2013 ?? 08:26:00 ?? 1396 ??H ? 413 ??H 02/11/2013 ?? 08:26:00 ?96320 ??Cf 02/11/2013 ?? 04:11:00 ?? 1491 ??H 02/11/2013 ?? 04:11:00 ?72054 ??Cf ??490 ??H 02/11/2013 ?? 00:56:00 ?? 1555 ??H 02/11/2013 ?? 00:56:00 ? 578 ??H 02/11/2013 ?? 00:56:00 ?16658 ??Cf 02/10/2013 ?? 21:00:00 ?99777 ??Cf 02/10/2013 ?? 21:00:00 ?? 1884 ??H 02/10/2013 ?? 15:10:00 ?46333 ??Cf 02/10/2013 ?? 15:10:00 ? 1007 ??H [...] ??C ?URINALYSIS ?Macroscopic ?Test: Color ?Clarity ??Specific [place] ? Reference: [Yellow] ?? [Clear] ??[1.003-1.030] ? [...] ?Test: Neut Pct Auto ??Lymph Pct Auto ??[place] Pct Auto ? Reference: [38.7-74.5] ?[20.0-54.3] ? [...] 0.1 ?14.0 ??H ?Test: Lymph Abs Auto ??[place] Abs Auto ??Eos Abs Auto ? Reference: [...] updated copy of the Tool Book at [email or web address] Current Interpretive Data was last [...] 02/15/2013 13:45:00 Complement, C2: Testing performed by: [facility], [place] [address]. ?Test: Complement, C4 ? Reference: [12.0-54.0] ? [...] to request sample to be sent to [facility] for Hepatitis C Virus (HCV) RNA Detection and Quantitation by Real-Time Reverse Security Test Engineer-PCR (RT-PCR). Current interpretive data was last [...] the EDUARDO AmpliPrep/EDUARDO TaqMan HCV Test ([employer] Test Performed by: [place] [address] Organizational Effectiveness Consultant: Noel Unger III, M.D. ? HIV / [...] Chemistry ?Test: Gluc WB POC ? Reference: [65-911] ? Units: mg/dL 02/10/2013 ?? 19:23:00 ?? [...] ORDERABLES Final Resul t Performing Organization Address [facility] de Phone Number HISTORICAL RESULTS * Serum magnesium (02/24/2013 9:36 PM CDT) Magnesium 1.9 1.4 - 2.5 mg/dl HISTORICAL RESULTS Serum 02/24/2013 9:36 PM CDT Liliane Maggy Teto LAB BLOOD ORDERABLES Final Resul t Performing Organization Address [facility] de Phone Number HISTORICAL RESULTS * [...] ORDERABLES Final Resul t Performing Organization Address [facility] de Phone Number HISTORICAL RESULTS * Serum magnesium (02/23/2013 9:28 PM CDT) Magnesium 2.0 1.4 - 2.5 mg/dl HISTORICAL RESULTS Serum 02/23/2013 9:28 PM CDT Patti Pelaez LAB BLOOD ORDERABLES Final Resul t Performing Organization Address [facility] de Phone Number HISTORICAL RESULTS * [...] ORDERABLES Final Resul t Performing Organization Address [facility] de Phone Number HISTORICAL RESULTS * [...] CDT Patti Pelaez LAB BLOOD ORDERABLES Final [facility] t Performing Organization Address City/[facility] de Phone Number HISTORICAL RESULTS * (ABNORMAL) Serum creatine kinase (CK) (02/20/2013 8:58 PM CDT) CK 549(H) 30 - 200 Units/L HISTORICAL RESULTS Serum 02/20/2013 8:58 PM CDT us Liliane D Teto LAB BLOOD ORDERABLES Final Resul t Performing Organization Address [facility] de Phone Number HISTORICAL RESULTS * [...] ORDERABLES Final Resul t Performing Organization Address [facility] de Phone Number HISTORICAL RESULTS * [...] ORDERABLES Final Resul t Performing Organization Address [facility] de Phone Number HISTORICAL RESULTS * US Scrotom (02/19/2013 10:29 AM CDT) Anatomical Region Laterality Modality Testis N/A Ultrasound 02/19/2013 10:2 9 AM CDT Narrative 02/19/2013 2:07 PM CDT DONTE MEEK M.D. ISHA RAMOS M.D. FINAL REPORT The radiology attending physician has personally reviewed this study, and has reviewed and/or edited this written report and agrees with it. ACC# ??Date Time ??Exam [id number] Feb 19, 2013 10:29:00 16457 Scrotal Sono EXAMINATION: ?SCROTAL SONOGRAM HISTORY: ?Patient [...] By: PATTI PELAEZ M.D. Dictated By: ?? ISHA RAMOS M.D. ??on Feb ??2012 10:47A This document has been electronically signed by: DONTE MEEK M.D. on Feb ??2012 ??2:07P Procedure Note Provider, MD Naheed - 11/13/2016 DONTE MEEK M.D. ISHA RAMOS M.D. FINAL REPORT The radiology attending physician has personally reviewed this study, and has reviewed and/or edited this written report and agrees with it. ACC# Date Time Exam [id number] Feb 19, 2013 10:29:00 77501 Scrotal Sono EXAMINATION: SCROTAL SONOGRAM HISTORY: Patient [...] ORDERABLES Final Resul t Performing Organization Address [facility] de Phone Number HISTORICAL RESULTS * Blood ABO, Rh, indirect ab screen (02/18/2013 7:06 AM CDT) ABO, Rho(D) A Positive HISTORI NETTA RESULTS [place], indirect Negative HISTORICAL RESULTS Blood specimen (specimen) 02/18/2013 7:06 AM CDT Patti Pelaez LAB BLOOD ORDERABLES Final Resul t Performing Organization Address [facility] de Phone Number HISTORICAL RESULTS * (ABNORMAL) [...] ORDERABLES Final Resul t Performing Organization Address [facility] Co de Phone Number HISTORICAL RESULTS * [...] Blood specimen (specimen) 02/17/2013 10:00 PM CDT [employer] LAB BLOOD ORDERABLES Final Resul t Performing Organization Address [facility] de Phone Number HISTORICAL RESULTS * [...] HISTORICAL RESULTS Plasma 02/17/2013 6:27 AM CDT [employer] LAB BLOOD ORDERABLES Final Resul t Performing Organization Address [facility] de Phone Number HISTORICAL RESULTS * Blood calcium, ionized (02/15/2013 10:41 PM CDT) Ca, ionized, bld 4.63 4.50 - 5.10 mg/dl HISTORICAL RESULTS Blood specimen (specimen) 02/15/2013 10:41 PM CDT Glisten D Teto LAB BLOOD ORDERABLES Final Resul t Performing Organization Address City/[facility] de Phone Number HISTORICAL RESULTS * (ABNORMAL) Serum creatine kinase (CK) (02/15/2013 10:41 PM CDT) CK 3353(H) 30 - 200 Units/L HISTORICAL RESULTS Serum 02/15/2013 10:4 1 PM CDT [employer] LAB BLOOD ORDERABLES Final Resul t Performing Organization Address [facility] de Phone Number HISTORICAL RESULTS * [...] RESULTS Plasma 02/15/2013 10:4 1 PM CDT [employer] LAB BLOOD ORDERABLES Final Resul t Performing Organization Address [facility] de Phone Number HISTORICAL RESULTS * (ABNORMAL) Serum uric acid (02/15/2013 10:41 PM CDT) Uric acid 10.1(H) 3.0 - 8.0 mg/dl HISTORICAL RESULTS Serum 02/15/2013 10:4 1 PM CDT [employer] LAB BLOOD ORDERABLES Final Resul t Performing Organization Address [facility] de Phone Number HISTORICAL RESULTS * [...] Blood specimen (specimen) 02/15/2013 10:41 PM CDT Glisten D Teto LAB BLOOD ORDERABLES Final Resul t Performing Organization Address City/[facility] Co de Phone Number HISTORICAL RESULTS * Serum antinuclear ab (APOORVA) (02/15/2013 10:41 PM CDT) APOORVA, qual Negative Negative HISTORICAL RESULTS Serum 02/15/2013 10:4 1 PM CDT Glisten D Teto LAB BLOOD ORDERABLES Final Resul t Performing Organization Address City/[facility] Co de Phone Number HISTORICAL RESULTS * Serum antineutrophil cytoplasmic ab (ANCA) (02/15/2013 10:41 PM CDT) ANCA Negative HISTORICAL RESULTS Serum 02/15/2013 10:4 1 PM CDT [employer] LAB BLOOD ORDERABLES Final Resul t Performing Organization Address [facility] de Phone Number HISTORICAL RESULTS * Serum complement C4, quantitative (02/15/2013 1:45 PM CDT) Complement C4 19.4 12.0 - 54.0 mg/dl HISTORICAL RESULTS Serum 02/15/2013 1:45 PM CDT expressor software LAB BLOOD ORDERABLES Final Resul t Performing Organization Address [facility] Phone Number HISTORICAL RESULTS * Serum complement C3, quantitative (02/15/2013 1:45 PM CDT) Complement C3 96.1 83.0 - 185.0 mg/dl HISTORICAL RESULTS Serum 02/15/2013 1:45 PM CDT [employer] LAB BLOOD ORDERABLES Final Resul t Performing Organization Address [facility] Phone Number HISTORICAL RESULTS * (ABNORMAL) Serum complement C2 (02/15/2013 1:45 PM CDT) Complement C2 49(H) 25 - 47 Units/ml HISTORICAL RESULTS Comment:{Testing performed b y: [facility], [place] [address].} Serum 02/15/2013 1:45 PM CDT [employer] LAB BLOOD ORDERABLES Final Resul t Performing Organization Address [facility] de Phone Number HISTORICAL RESULTS * Serum calcium, ionized (02/15/2013 8:07 AM CDT) Ca, ionized, sr 4.69 4.50 - 5.10 mg/dl HISTORICAL RESULTS Serum 02/15/2013 8:07 AM CDT [employer] Teto LAB BLOOD ORDERABLES Final Resul t Performing Organization Address [facility] de Phone Number HISTORICAL RESULTS * [...] HISTORICAL RESULTS Plasma 2013 9:17 PM CDT [employer] Maggy Bobbyl LAB BLOOD ORDERABLES Final Resul t Performing Organization Address [facility] de Phone Number HISTORICAL RESULTS * [...] ORDERABLES Final Resul t Performing Organization Address City/State/[facility] Co de Phone Number HISTORICAL RESULTS * [...] RESULTS Urine 2013 6:33 PM CDT Patti Addepar LAB BLOOD ORDERABLES Final Resul t Performing Organization Address City/[facility] Co de Phone Number HISTORICAL RESULTS * [...] Urine 2013 6:33 PM CDT Patti Alexander [facility] [employer] LAB BLOOD ORDERABLES Final Resul t Performing Organization Address [facility] Co de Phone Number HISTORICAL RESULTS * Urine creatinine (2013 3:46 PM CDT) Creatinine, ur 39.85 mg/dl HISTO RICAL RESULTS Urine 2013 3:46 PM CDT Patti Addepar LAB BLOOD ORDERABLES Final Resul t Performing Organization Address [facility] Co de Phone Number HISTORICAL RESULTS * [...] agrees with it. ACC# ??Date Time ??Exam [id number] 2013 14:46:00 [id number] US Retroper cmp EXAMINATION: ?COMPLETE RENAL SONOGRAM [...] agrees with it. ACC# Date Time Exam [id number] 2013 14:46:00 05549 US Retroper cmp EXAMINATION: COMPLETE RENAL SONOGRAM [...] RESULTS - 02/16/2013 12:41 PM CDT ? [facility] ?[facility] ?[place], [facility] [address] ? Patient Name: ??GIOVANA LEBRON ? Med Rec Number: [id number] ? Fin Number: ?[id number] ? Date: ?1980 ? Sex/Age: ? Male 33 years ? Admit Date: ?02/10/2013 ? Discharge Date: ? Doctor: ?[facility] , [address] ? Facility: ?[facility] ? Location: ?0102 [address] 01 ?* Abnormal ??A Alert ??f Footnote [...] L ORDERABLES Final Result Performing Organization Address City/State/[facility] Co de Phone Number HISTORICAL RESULTS * [...] ORDERABLES Nettie l Result Performing Organization Address City/State/[facility] de Phone Number HISTORICAL RESULTS * (ABNORMAL) Serum creatine kinase (CK) (02/13/2013 8:46 PM CDT) CK 6636(H) 30 - 200 Units/L HISTORICAL RESULTS Serum 02/13/2013 8:46 PM CDT Dionisio Patterson MD LAB BLOOD ORDERABLES Nettie l Result Performing Organization Address [facility] de Phone Number HISTORICAL RESULTS * [...] l Result Performing Organization Address [facility] de Phone Number HISTORICAL RESULTS * [...] updated copy of the Tool Book at [email or web address] Current Interpretive Data was last revised 2011. Plasma 02/13/2013 8:46 PM CDT Dionisio Patterson MD LAB BLOOD ORDERABLES Nettie l Result Performing Organization Address [facility] de Phone Number HISTORICAL RESULTS * Plasma fibrinogen (02/13/2013 8:46 PM CDT) Pathologist [facility] Fibrinogen 386 170 - 400 mg/dl HISTORICAL RESULTS Plasma 02/13/2013 8:46 PM CDT Dionisio Patterson MD LAB BLOOD ORDERABLES Nettie l Result Performing Organization Address [facility] de Phone Number HISTORICAL RESULTS * [...] ORDERABLES Nettie l Result Performing Organization Address City/State/[facility] Co de Phone Number HISTORICAL RESULTS * Plasma amylase (02/13/2013 8:46 PM CDT) Queta, pl 60 28 - 100 Units/L HISTORICAL RESULTS Plasma 02/13/2013 8:46 PM CDT Dionisio Patterson MD LAB BLOOD ORDERABLES Nettie l Result Performing Organization Address [facility] de Phone Number HISTORICAL RESULTS * XR Chest 1 View (02/13/2013 6:16 PM CDT) Anatomical Region Laterality Modality Body, Chest N/A Radiographic Ree ging 02/13/2013 6:16 PM CDT Narrative 2013 9:48 AM CDT KAISER HUNTER M.D. FINAL REPORT ACC# ??Date Time ??Exam [id number] Feb 13, 2013 18:16:00 32507 Chest 1 view Frontal EXAMINATION: ?CHEST, ONE [...] M.D. FINAL REPORT ACC# Date Time Exam [id number] Feb 13, 2013 18:16:00 [id number] Chest 1 view Frontal EXAMINATION: CHEST, ONE [...] agrees with it. ACC# ??Date Time ??Exam [id number] Feb 13, 2013 09:36:00 77373 [facility]: ?LIVER DOPPLER HISTORY: ??32-year-old [...] agrees with it. ACC# Date Time Exam [id number] Feb 13, 2013 09:36:00 33138 [facility]: LIVER DOPPLER HISTORY: 32-year-old [...] L ORDERABLES Final Result Performing Organization Address [facility] de Phone Number HISTORICAL RESULTS * (ABNORMAL) Serum creatine kinase (CK) (02/13/2013 12:54 AM CDT) [place] [address](C) 30 - 200 Units/L HISTORICAL RESULTS Serum 02/13/2013 12:5 4 AM CDT Joe Cruz MD LAB BLOOD ORDERABLES Final Result Performing Organization Address [facility] Co de Phone Number HISTORICAL RESULTS * [...] BLOOD ORDERABLES Final Result Performing Organization Address City/[facility]/ZIP Co de Phone Number HISTORICAL RESULTS * Plasma phosphorus (02/13/2013 12:54 AM CDT) Phosphorus, pl 4.0 2.3 - 4.3 mg/dl HISTORICAL RESULTS Plasma 02/13/2013 12:5 4 AM CDT Joe Cruz MD LAB BLOOD ORDERABLES Final Result Performing Organization Address [facility] de Phone Number HISTORICAL RESULTS * Serum magnesium (02/13/2013 12:54 AM CDT) Pathologist [facility] Magnesium 1.9 1.4 - 2.5 mg/dl HISTORICAL RESULTS Serum 02/13/2013 12:5 4 AM CDT Joe Cruz MD LAB BLOOD ORDERABLES Final Result Performing Organization Address [facility] de Phone Number HISTORICAL RESULTS * [...] BLOOD ORDERABLES Final Result Performing Organization Address [facility] de Phone Number HISTORICAL RESULTS * [...] ORDERABLES Nettie l Result Performing Organization Address [facility] de Phone Number HISTORICAL RESULTS * [...] updated copy of the Tool Book at [email or web address] Current Interpretive Data was last revised 2011. Plasma 02/13/2013 12:5 4 AM CDT Dionisio Patterson MD LAB BLOOD ORDERABLES Nettie l Result Performing Organization Address City/[facility] Co de Phone Number HISTORICAL RESULTS * (ABNORMAL) Blood reticulocyte count (02/13/2013 12:54 AM CDT) Retics 2.0(H) 0.4 - 1.9 % HISTORICAL RESULTS Retics, absolute 0.084 0.015 - 0.092 M/cumm HISTORICAL RESULTS Blood specimen (specimen) 02/13/2013 12:54 AM CDT Dionisio Patterson MD LAB BLOOD ORDERABLES Nettie l Result Performing Organization Address City/[facility] Co de Phone Number HISTORICAL RESULTS * All Microbiology Report Section (02/13/2013 12:00 AM CDT) 02/13/2013 Narrative HISTORICAL RESULTS - 2013 6:23 AM CDT ? [facility] ?[facility] ?[place] [address] ? Patient Name: ??GIOVANA LEBRON ? Med Rec Number: [id number] ? Fin Number: ?[id number] ? Date: ?1980 ? Sex/Age: ? Male 33 years ? Admit Date: ?02/10/2013 ? Discharge Date: ? Doctor: ?[facility] , 1302 ? Facility: ?[facility] ? Location: ?0102 [address] 01 ?* Abnormal ??A Alert ??f Footnote [...] potassium, mixed venous (02/12/2013 5:56 PM CDT) [facility] Potassium, bld 4.5 3.3 - 4.9 [...] ORDERABLES F inal Result Performing Organization Address [facility] de Phone Number HISTORICAL RESULTS * Extra slide preparation (02/12/2013 5:56 PM CDT) Extra slide prep Test Completed HISTORICAL RESULTS No specimen 02/12/2013 5:56 PM CDT Dionisio Patterson MD LAB BLOOD ORDERABLES Nettie l Result Performing Organization Address [facility] de Phone Number HISTORICAL RESULTS * MRI Upper Extremity Joint WO Contrast (02/12/2013 5:05 PM CDT) Anatomical Region Laterality Modality Upper Extremities N/A Magnetic Reson ance 02/12/2013 5:05 PM CDT Narrative 02/12/2013 5:19 PM CDT YESI MORENO M.D. FINAL REPORT ACC# ??Date Time ??Exam [id number] Feb 12, 2013 17:05:00 [id number] MRI JntUpper Extrm wo cont L EXAMINATION: [...] M.D. FINAL REPORT ACC# Date Time Exam [id number] Feb 12, 2013 17:05:00 [id number] MRI JntUpper Extrm wo cont L EXAMINATION: [...] RESULTS Urine 02/12/2013 3:29 PM CDT Result [facility] BLOOD ORDERABLES Final Resul t Performing Organization Address [facility] Co de Phone Number HISTORICAL RESULTS * [...] HISTORICAL RESULTS Urine 02/12/2013 3:29 PM CDT [employer] system LAB BLOOD ORDERABLES Final Resul t Performing Organization Address City/[facility] Co de Phone Number HISTORICAL RESULTS * [...] L ORDERABLES Final Result Performing Organization Address [facility] Co de Phone Number HISTORICAL RESULTS * [...] ORDERABLES F inal Result Performing Organization Address [facility] de Phone Number HISTORICAL RESULTS * (ABNORMAL) Serum vancomycin drug level (02/12/2013 9:59 AM CDT) Vancomycin 43.5(C) mcg/ml HISTORICA L RESULTS Serum 02/12/2013 9:59 AM CDT Phyllis Vasquez MD LAB BLOOD ORDERABLES F inal Result Performing Organization Address [facility] Co de Phone Number HISTORICAL RESULTS * [...] M.D. FINAL REPORT ACC# ??Date Time ??Exam [id number] Feb 12, 2013 05:16:00 [id number] Chest 1 view Frontal EXAMINATION: ?? One [...] JOE CRUZ M.D. Dictated By: ?? CHELO GÓMEZ M.D. ??on Feb 12 2013 ??9:14A This document has been electronically signed by: CHELO GÓMEZ M.D. on Feb 12 2013 ??9:14A Procedure Note Provider, MD Naheed - 11/13/2016 CHELO GÓMEZ M.D. FINAL REPORT ACC# Date Time Exam [id number] Feb 12, 2013 05:16:00 [id number] Chest 1 view Frontal EXAMINATION: One View [...] By: JOE CRUZ M.D. Dictated By: CHELO ÓGMEZ M.D. on Feb 12 2013 9:14A This document has been electronically signed by: CHELO GÓMEZ M.D. on Feb 12 2013 9:14A us Historical Provider IMKarrie XR PROCEDURES Final R esult * All Microbiology Report Section (02/12/2013 12:00 AM CDT) 02/12/2013 Narrative HISTORICAL RESULTS - 2013 6:23 AM CDT ? [facility] ?[facility] ?[place], [place] [address] ? Patient Name: ??GIOVANA LEBRON ? Med Rec Number: [id number] ? Fin Number: ?[id number] ? Date: ?1980 ? Sex/Age: ? Male 33 years ? Admit Date: ?02/10/2013 ? Discharge Date: ? Doctor: ?[facility]IC[facility] , 1302 ? Facility: ?[facility] ? Location: ?0102 [address] 01 ?* Abnormal ??A Alert ??f Footnote [...] Final Result Performing Organization Address [facility] de Phone Number HISTORICAL RESULTS * (ABNORMAL) Serum creatine kinase (CK) (02/11/2013 11:44 PM CDT) [place] [address](C) 30 - 200 Units/L HISTORICAL RESULTS Comment:{Previous critical v alue noted 6 hours ago.} Serum 02/11/2013 11:4 4 PM CDT Phyllis Vasquez MD LAB BLOOD ORDERABLES F inal Result Performing Organization Address [facility] de Phone Number HISTORICAL RESULTS * (ABNORMAL) [...] BLOOD ORDERABLES Final Result Performing Organization Address [facility] de Phone Number HISTORICAL RESULTS * [...] BLOOD ORDERABLES Final Result Performing Organization Address [facility] de Phone Number HISTORICAL RESULTS * [...] BLOOD ORDERABLES Final Result Performing Organization Address [facility] de Phone Number HISTORICAL RESULTS * (ABNORMAL) Serum creatine kinase (CK) MB (02/11/2013 5:09 PM CDT) CK MB 88(C) 0 - 7 ng/ml HISTORICAL RESULTS Comment:{Previous critical v alue noted 4 [place] [address](C) 30 - 200 Units/L HISTORICAL RESULTS Comment:{Repeated on dilutio n. Previous critical value noted 4 hours ago.} Serum 02/11/2013 5:09 PM CDT Carli Lunsford MD LAB BLOOD ORDERABLES Final Result Performing Organization Address [facility] de Phone Number HISTORICAL RESULTS * (ABNORMAL) [...] BLOOD ORDERABLES Final Result Performing Organization Address [facility] de Phone Number HISTORICAL RESULTS * (ABNORMAL) Serum lactate dehydrogenase (LDH) (02/11/2013 12:18 PM CDT) Lactate dehydrogenase (LDH) 1238(H) 100 - 250 Units/L HISTORICAL RESULTS Serum 02/11/2013 12:1 8 PM CDT Ap Castillo MD LAB BLOOD ORDERABLES Final Result Performing Organization Address [facility] de Phone Number HISTORICAL RESULTS * (ABNORMAL) Serum creatine kinase (CK) MB (02/11/2013 12:18 PM CDT) Pathologist [facility] CK MB 106(C) 0 - 7 ng/ml HISTORICAL RESULTS Comment:{Previous critical v alue noted 3 hours ago.} [place] [address](C) 30 - 200 Units/L HISTORICAL RESULTS Comment:{Previous critical v alue noted 3 hours ago.} Serum 02/11/2013 12:1 8 PM CDT Ap Castillo MD LAB BLOOD ORDERABLES Final Result Performing Organization Address [facility] de Phone Number HISTORICAL RESULTS * (ABNORMAL) [...] BLOOD ORDERABLES Final Result Performing Organization Address [facility] de Phone Number HISTORICAL RESULTS * [...] BLOOD ORDERABLES Final Result Performing Organization Address [facility] de Phone Number HISTORICAL RESULTS * [...] BLOOD ORDERABLES Final Result Performing Organization Address [facility] de Phone Number HISTORICAL RESULTS * (ABNORMAL) Serum lactate dehydrogenase (LDH) (02/11/2013 8:26 AM CDT) Lactate dehydrogenase (LDH) 1396(H) 100 - 250 Units/L HISTORICAL RESULTS Serum 02/11/2013 8:26 AM CDT Joe Cruz MD LAB BLOOD ORDERABLES Final Result Performing Organization Address [facility] de Phone Number HISTORICAL RESULTS * [...] BLOOD ORDERABLES Final Result Performing Organization Address [facility] de Phone Number HISTORICAL RESULTS * [...] v alue noted 4 hours ago.} [place] [address](C) 30 - 200 Units/L HISTORICAL RESULTS Comment:{Previous critical v alue noted 4 hours ago.} Serum 02/11/2013 8:26 AM CDT Jeo Cruz MD LAB BLOOD ORDERABLES Final Result Performing Organization Address City/[facility] Co de Phone Number HISTORICAL RESULTS * [...] updated copy of the Tool Book at [email or web address] Current Interpretive Data was last revised 2011. Plasma 02/11/2013 8:26 AM CDT Joe Cruz MD LAB BLOOD ORDERABLES Final Result HISTORICAL RESULTS * XR Chest 1 View (02/11/2013 4:31 AM CDT) Anatomical Region Laterality Modality Body, Chest N/A Radiographic Ree ging 02/11/2013 4:31 AM CDT Narrative 02/11/2013 10:42 AM CDT KAISER HUNTER M.D. FINAL REPORT ACC# ??Date Time ??Exam [id number] Feb 11, 2013 04:31:00 [id number] Chest 1 view Frontal EXAMINATION: ?CHEST, ONE [...] M.D. FINAL REPORT ACC# Date Time Exam [id number] Feb 11, 2013 04:31:00 [id number] Chest 1 view Frontal EXAMINATION: CHEST, ONE [...] BLOOD ORDERABLES Final Result Performing Organization Address [facility] de Phone Number HISTORICAL RESULTS * (ABNORMAL) Serum uric acid (02/11/2013 4:11 AM CDT) Pathologist [facility] Uric acid 9.6(H) 3.0 - 8.0 mg/dl HISTORICAL RESULTS Serum 02/11/2013 4:11 AM CDT Ap Castillo MD LAB BLOOD ORDERABLES Final Result Performing Organization Address [facility] de Phone Number HISTORICAL RESULTS * (ABNORMAL) Serum creatine kinase (CK) MB (02/11/2013 4:11 AM CDT) Pathologist [facility] CK MB 159(C) 0 - 7 ng/ml HISTORICAL RESULTS Comment:{Previous critical v alue noted 3 hours ago.} [place] [address](C) 30 - 200 Units/L HISTORICAL RESULTS Comment:{Previous critical v alue noted 3 hours ago.} Serum 02/11/2013 4:11 AM CDT Ap Castillo MD LAB BLOOD ORDERABLES Final Result Performing Organization Address [facility] de Phone Number HISTORICAL RESULTS * [...] Final Result Performing Organization Address [facility] de Phone Number HISTORICAL RESULTS * (ABNORMAL) Plasma amylase (02/11/2013 4:11 AM CDT) Queta, pl 490(H) 28 - 100 Units/L HISTORICAL RESULTS Plasma 02/11/2013 4:11 AM CDT Ap Castillo MD LAB BLOOD ORDERABLES Final Result Performing Organization Address [facility] de Phone Number HISTORICAL RESULTS * Serum Hepatitis panel (02/11/2013 4:11 AM CDT) HBV surface ag Negative NEG HISTO RICAL RESULTS HCV ab Negative NEG HISTORICAL RESULTS Comment: Interpretive Data If confirmation is required, call Laboratory Customer Service to request sample to be sent to [facility] for Hepatitis C Virus (HCV) RNA Detection and Quantitation by Real-Time Reverse Security Test Engineer-PCR (RT-PCR). Current interpretive data was last [...] BLOOD ORDERABLES Final Result Performing Organization Address [facility] de Phone Number HISTORICAL RESULTS * [...] BLOOD ORDERABLES Final Result Performing Organization Address [facility] de Phone Number HISTORICAL RESULTS * Urine (aerobic) culture (02/11/2013 1:00 AM CDT) Urine, catheterized (Field) 02/11/2013 1:00 AM CDT 02/11/2013 2:44 AM CDT Narrative HISTORICAL RESULTS - 02/12/2013 9:13 AM CDT No growth Historical Provider LAB MICROBIOLOGY - GENERA L ORDERABLES Final Result Performing Organization Address City/State/[facility] Co de Phone Number HISTORICAL RESULTS * [...] BLOOD ORDERABLES Final Result Performing Organization Address [facility] de Phone Number HISTORICAL RESULTS * [...] updated copy of the Tool Book at [email or web address] Current Interpretive Data was last revised 2011. Plasma 02/11/2013 12:5 8 AM CDT Joe Cruz MD LAB BLOOD ORDERABLES Final Result Performing Organization Address [facility] de Phone Number HISTORICAL RESULTS * [...] 102: 1193., 2002; 106: 1893., 2003: 108: 1683) Greater than or equal to 0.25 ng/mL: Positive Troponin, suggest establishing rising or falling pattern and evidence of Cardiac Ischemia for consideration of Myocardial Infarction. Current interpretive data was last revised on 2007. Serum 02/11/2013 12:5 6 AM CDT Joe Cruz MD LAB BLOOD ORDERABLES Final Result Performing Organization Address City/[facility] Co de Phone Number HISTORICAL RESULTS * [...] BLOOD ORDERABLES Final Result Performing Organization Address [facility] de Phone Number HISTORICAL RESULTS * (ABNORMAL) Serum lactate dehydrogenase (LDH) (02/11/2013 12:56 AM CDT) Lactate dehydrogenase (LDH) 1555(H) 100 - 250 Units/L HISTORICAL RESULTS Serum 02/11/2013 12:5 6 AM CDT Joe Cruz MD LAB BLOOD ORDERABLES Final Result Performing Organization Address [facility] de Phone Number HISTORICAL RESULTS * Plasma lactic acid (02/11/2013 12:56 AM CDT) Lactic acid 0.8 0.7 - 2.1 mmol/L HISTORICAL RESULTS Plasma 02/11/2013 12:5 6 AM CDT Joe Cruz MD LAB BLOOD ORDERABLES Final Result Performing Organization Address [facility] de Phone Number HISTORICAL RESULTS * Plasma phosphorus (02/11/2013 12:56 AM CDT) Phosphorus, pl 3.2 2.3 - 4.3 mg/dl HISTORICAL RESULTS Plasma 02/11/2013 12:5 6 AM CDT Joe Cruz MD LAB BLOOD ORDERABLES Final Result Performing Organization Address [facility] de Phone Number HISTORICAL RESULTS * Serum magnesium (02/11/2013 12:56 AM CDT) Magnesium 1.8 1.4 - 2.5 mg/dl HISTORICAL RESULTS Serum 02/11/2013 12:5 6 AM CDT Joe Cruz MD LAB BLOOD ORDERABLES Final Result Performing Organization Address [facility] Phone Number HISTORICAL RESULTS * (ABNORMAL) Plasma amylase (02/11/2013 12:56 AM CDT) Queta, pl 578(H) 28 - 100 Units/L HISTORICAL RESULTS Plasma 02/11/2013 12:5 6 AM CDT Joe Crzu MD LAB BLOOD ORDERABLES Final Result Performing Organization Address [facility] Phone Number HISTORICAL RESULTS * (ABNORMAL) Serum calcium, ionized (02/11/2013 12:56 AM CDT) Ca, ionized, sr 4.15(L) 4.50 - 5.10 mg/dl HISTORICAL RESULTS Serum 02/11/2013 12:5 6 AM CDT Joe Cruz MD LAB BLOOD ORDERABLES Final Result Performing Organization Address [facility] de Phone Number HISTORICAL RESULTS * [...] BLOOD ORDERABLES Final Result Performing Organization Address City/State/[facility] Co de Phone Number HISTORICAL RESULTS * [...] v alue noted 9 hours ago.} [place] [address](C) 30 - 200 Units/L HISTORICAL RESULTS Comment:{Previous critical v alue noted 3 hours ago.} Serum 02/11/2013 12:5 6 AM CDT us Joe Cruz MD LAB BLOOD ORDERABLES Final Result HISTORICAL RESULTS * All Microbiology Report Section (02/11/2013 12:00 AM CDT) 02/11/2013 Narrative HISTORICAL RESULTS - 2013 6:23 AM CDT ? [facility] ?[address] [facility] ?[place], [place] [address] ? Patient Name: ??GIOVANA LEBRON ? Med Rec Number: [id number] ? Fin Number: ?[id number] ? Date: ?1980 ? Sex/Age: ? Male 33 years ? Admit Date: ?02/10/2013 ? Discharge Date: ? Doctor: ?[facility] , 1302 ? Facility: ?[facility] ? Location: ?0102 [address] 01 ?* Abnormal ??A Alert ??f Footnote [...] agrees with it. ACC# ??Date Time ??Exam [id number] Feb 10, 2013 21:31:00 [id number] Abdomen single view AP EXAMINATION: ?Abdomen 2 [...] agrees with it. ACC# Date Time Exam [id number] Feb 10, 2013 21:31:00 [id number] Abdomen single view AP EXAMINATION: Abdomen 2 [...] M.D. on Feb 11 2013 3:33P Result [facility] Historical Provider IMG XR PROCEDURES Final R esult * Blood culture (02/10/2013 9:00 PM CDT) Blood specimen (specimen) (Peripheral) 02/10/2013 9:00 PM CDT 02/10/2013 9:37 PM CDT Narrative HISTORICAL RESULTS - 02/16/2013 6:23 AM CDT No growth Result [facility] Historical Provider LAB MICROBIOLOGY - GENERA L ORDERABLES Final Result Performing Organization Address [facility] Co de Phone Number HISTORICAL RESULTS * [...] the EDUARDO AmpliPrep/EDUARDO TaqMan HCV Test ([employer] Test Performed by: [place] [address] Organizational Effectiveness Consultant: Noel Unger III, M.D. Serum 02/10/2013 9:00 PM CDT Result [facility] Ap Castillo MD LAB BLOOD ORDERABLES Final Result Performing Organization Address City/[facility]/ZIP Co de Phone Number HISTORICAL RESULTS * Serum Human Immunodeficiency virus (HIV) 1, 2 ab (02/10/2013 9:00 PM CDT) [facility] HIV ab Negative NEG HISTORICAL RESULTS Serum 02/10/2013 9:00 PM CDT Result [facility] Ap Castillo MD LAB BLOOD ORDERABLES Final Result Performing Organization Address [facility] Co de Phone Number HISTORICAL RESULTS * (ABNORMAL) Serum creatine kinase (CK) (02/10/2013 9:00 PM CDT) [place] [facility] [place] [address](C) 30 - 200 Units/L HISTORICAL RESULTS Comment:{Previous critical v alue noted 5 hours ago.} Serum 02/10/2013 9:00 PM CDT Joe Cruz MD LAB BLOOD ORDERABLES Final Result Performing Organization Address [facility] de Phone Number HISTORICAL RESULTS * (ABNORMAL) Serum lactate dehydrogenase (LDH) (02/10/2013 9:00 PM CDT) Pathologist [facility] Lactate dehydrogenase (LDH) 1884(H) 100 - 250 Units/L HISTORICAL RESULTS Serum 02/10/2013 9:00 PM CDT Ap Castillo MD LAB BLOOD ORDERABLES Final Result Performing Organization Address [facility] de Phone Number HISTORICAL RESULTS * [...] BLOOD ORDERABLES Final Result Performing Organization Address [facility] Co de Phone Number HISTORICAL RESULTS * (ABNORMAL) Serum uric acid (02/10/2013 9:00 PM CDT) Uric acid 9.3(H) 3.0 - 8.0 mg/dl HISTORICAL RESULTS Serum 02/10/2013 9:00 PM CDT Ap Castillo MD LAB BLOOD ORDERABLES Final Result Performing Organization Address [facility] de Phone Number HISTORICAL RESULTS * Blood glucose, POC (02/10/2013 7:23 PM CDT) Glucose, POC, bld 97 65 - 199 mg/dl HISTORICAL RESULTS Blood specimen (specimen) 02/10/2013 7:23 PM CDT Greg Quiles MD LAB BLOOD ORDERABLES Final Resu lt Performing Organization Address [facility] de Phone Number HISTORICAL RESULTS * Blood culture (02/10/2013 4:46 PM CDT) Blood specimen (specimen) (Antecubital, right) 02/10/2013 4:46 PM CDT 02/10/2013 5:38 PM CDT Narrative HISTORICAL RESULTS - 02/16/2013 6:23 AM CDT No growth Historical Provider LAB MICROBIOLOGY - GENERA L ORDERABLES Final Result Performing Organization Address [facility] de Phone Number HISTORICAL RESULTS * XR Wrist 3+ VW (02/10/2013 4:36 PM CDT) Anatomical Region Laterality Modality N/A Radiographic Ree ging 02/10/2013 4:36 PM CDT Narrative 02/11/2013 6:23 AM CDT LESLIE FLORES MD, PHD FINAL REPORT ACC# ??Date Time ??Exam [id number] Feb 10, 2013 16:36:00 [id number] Wrist Complete min 3 views L EXAMINATION: [...] Note Provider, MD Naheed - 11/13/2016 LESLIE FLORES MD, PHD FINAL REPORT ACC# Date Time Exam [id number] Feb 10, 2013 16:36:00 [id number] Wrist Complete min 3 views L EXAMINATION: [...] M.D. FINAL REPORT ACC# ??Date Time ??Exam [id number] Feb 10, 2013 15:22:00 [id number] Chest 1 view Frontal EXAMINATION: ?CHEST, ONE [...] M.D. FINAL REPORT ACC# Date Time Exam [id number] Feb 10, 2013 15:22:00 [id number] Chest 1 view Frontal EXAMINATION: CHEST, ONE [...] on 02/10/2013 16:25:50 [place] [address](C) 30 - 200 Units/L HISTORICAL RESULTS Comment: [...] BLOOD ORDERABLES Final Result Performing Organization Address [facility] de Phone Number HISTORICAL RESULTS * [...] blood 02/10/2013 3: 10 PM CDT Result [facility] Ap Castillo MD LAB BLOOD ORDERABLES Final Result Performing Organization Address [facility] de Phone Number HISTORICAL RESULTS * Plasma lactic acid (02/10/2013 3:10 PM CDT) Pathologist [facility] Lactic acid 1.6 0.7 - 2.1 mmol/L HISTORICAL RESULTS Plasma 02/10/2013 3:10 PM CDT Result [facility] Ap Castillo MD LAB BLOOD ORDERABLES Final Result Performing Organization Address [facility] de Phone Number HISTORICAL RESULTS * Blood potassium, mixed venous (02/10/2013 3:10 PM CDT) Pathologist [facility] Potassium, bld 4.6 3.3 - 4.9 mmol/L HISTORICAL RESULTS Mixed venous blood 02/10/2013 3:10 PM CDT Result [facility] Ap Castillo MD LAB BLOOD ORDERABLES Final Result Performing Organization Address [facility] de Phone Number HISTORICAL RESULTS * [...] BLOOD ORDERABLES Final Result Performing Organization Address [facility] de Phone Number HISTORICAL RESULTS * [...] BLOOD ORDERABLES Final Result Performing Organization Address [facility] de Phone Number HISTORICAL RESULTS * [...] RESULTS Plasma 02/10/2013 3:10 PM CDT Result [facility] Ap Castillo MD LAB BLOOD ORDERABLES Final Result Performing Organization Address [facility] Co de Phone Number HISTORICAL RESULTS * [...] updated copy of the Tool Book at [email or web address] Current Interpretive Data was last revised 2011. Plasma 02/10/2013 3:10 PM CDT Result [facility] Ap Castillo MD LAB BLOOD ORDERABLES Final Result Performing Organization Address City/[facility]/ZIP Co de Phone Number HISTORICAL RESULTS * (ABNORMAL) Serum calcium, ionized (02/10/2013 3:10 PM CDT) Ca, ionized, sr 4.17(L) 4.50 - 5.10 mg/dl HISTORICAL RESULTS Serum 02/10/2013 3:10 PM CDT Result [facility] Ap Castillo MD LAB BLOOD ORDERABLES Final [...] ORDERABLES Final Result Performing Organization Address [facility] Phone Number HISTORICAL RESULTS * Blood ABO, Rh, indirect ab screen (02/10/2013 3:10 PM CDT) ABO, Rho(D) A Positive HISTORI NETTA RESULTS [place], indirect Negative HISTORICAL RESULTS Blood specimen (specimen) 02/10/2013 3:10 PM CDT Ap Castillo MD LAB BLOOD ORDERABLES Final Result Performing Organization Address [facility] Phone Number HISTORICAL RESULTS * (ABNORMAL) Plasma amylase (02/10/2013 3:10 PM CDT) Queta, pl 1007(H) 28 - 100 Units/L HISTORICAL RESULTS Plasma 02/10/2013 3:10 PM CDT Ap Castillo MD LAB BLOOD ORDERABLES Final Result Performing Organization Address [facility] Phone Number HISTORICAL RESULTS * Methicillin-resistant Staphylococcus [...] ORDERABLES Final Result Performing Organization Address [facility] Phone Number HISTORICAL RESULTS * Vancomycin-resistant enterococcus [...] RESULTS - 2013 6:23 AM CDT ? [facility] ?[address] [facility] ?[place], [place] [address] ? Patient Name: ??GIOVANA LEBRON ? Med Rec Number: [id number] ? Fin Number: ?[id number] ? Date: ?1980 ? Sex/Age: ? Male 33 years ? Admit Date: ?02/10/2013 ? Discharge Date: ? Doctor: ?[facility] , 1302 ? Facility: ?[facility] ? Location: ?0102 [address] 01 ?* Abnormal ??A Alert ??f Footnote [...] RESULTS - 2013 6:23 AM CDT ? [facility] ?[facility] ?[place], [place] [address] ? Patient Name: ??GIOVANA LEBRON ? Med Rec Number: [id number] ? Fin Number: ?[id number] ? Date: ?1980 ? Sex/Age: ? Male 33 years ? Admit Date: ?02/10/2013 ? Discharge Date: ? Doctor: ?[facility] , 1302 ? Facility: ?[facility] ? Location: ?0102 [address] 01 ?* Abnormal ??A Alert ??f Footnote [...] RESULTS - 02/16/2013 9:38 AM CDT ? [facility] ?[facility] ?[place] [address] ? Patient Name: ??GIOVANA LEBRON ? Med Rec Number: [id number] ? Fin Number: ?[id number] ? Date: ?1980 ? Sex/Age: ? Male 33 years ? Admit Date: ?02/10/2013 ? Discharge Date: ? Doctor: ?[facility] , 1302 ? Facility: ?[facility] ? Location: ?0102 [address] 01 ?* Abnormal ??A Alert ??f Footnote [...] RESULTS - 02/16/2013 9:38 AM CDT ? [facility] ?[address] [facility] ?[place], [place] [address] ? Patient Name: ??GIOVANA LEBRON ? Med Rec Number: [id number] ? Fin Number: ?[id number] ? Date: ?1980 ? Sex/Age: ? Male 33 years ? Admit Date: ?02/10/2013 ? Discharge Date: ? Doctor: ?[facility] , 1302 ? Facility: ?[facility] ? Location: ?0102 [address] 01 ?* Abnormal ??A Alert ??f Footnote [...]
--- OUTSIDE RECORDS SUMMARY | 2024-07-20 19:50 | XMS_ITS | Encounter Summary ---
Author Organization [facility] Facility Care Team Providers Care Chemical Sales Representative Name Role Phone Unavailable Primary Care Provider Unavailabl e Encounter Details Date Type Department Care Team (Late st Contact Info) Description 10/01/2007 - 10/01/2007 11:59 PM CDT Hospital Encounter [facility] [address] [place] [address] Pain in joint, upper arm Social History Tobacco Use Types Packs/Day Years Used Date Smoking Tobacco: Never Assessed Sex and Gender Information Value Date Recorded Sex Assigned at Not on file Legal Sex Male 6:06 AM [employer] Gender Identity Not on file Sexual Orientation Straight 11/28/2020 9: 06 AM CDT documented as of this encounter Plan of Treatment Not on file documented as of this encounter Visit Diagnoses Diagnosis Pain in joint, upper arm documented in this encounter
== END 2024-07-13 15:20 | disposition home or self-care (01) ==
PROVIDERS: Emergency Provider Emergency Medicine; PCP Emergency Medicine
DX: N13.2 Hydronephrosis with renal and ureteral calculous obstruction (principal); E78.5 Hyperlipidemia, unspecified; K21.9 Gastro-esophageal reflux disease without esophagitis
CPT/HCPCS: 36415; 74176; 80053; 81001; 85025; 96374; 96375; 99284; A9270; J1171; J1885; J2405